=== PATIENT | female | born 1965 | race Caucasian/White ===

== ENCOUNTER → 2021-02-06 16:55 | Outpatient (CLI) | payer OTHER, SELFPAY ==
--- NOTE | 2021-02-06 17:01 | MRI_ITS ---
STUDY: MRI BRAIN WITH AND WITHOUT CONTRAST REASON FOR EXAM: Female, 55 years old. Multiple Sclerosis -- Patient has some Claustrophobia needs headphones and glasses for MRI, feeling of spinning TECHNIQUE: Standardized multiplanar fat and water weighted pulse sequences were obtained. IV 15 mL Dotarem was administered for the contrast portion of the examination. COMPARISON: None. FINDINGS: Normal size of the ventricles and extra-axial spaces for the patient''s age. FLAIR hyperintensities involving the corpus callosum, especially the undersurface, and right and left centrum semiovale and a tracheostomy finger type configuration. Hyperintensities also noted in the brainstem and right cerebellum. No enhancement to suggest active demyelination. There is no evidence for recent intracranial ischemia or other cause of cytotoxic edema on diffusion weighted imaging (DWI). Normal T2* images of the brain without demonstrated susceptibility artifact. There is no demonstrated hemosiderin stain. Normal bilateral basal ganglia. Normal thalami. There is no extra-axial fluid accumulation. Normal flow voids within the major intracranial circulation suggesting patency by spin echo criteria. Normal venous enhancement. There is no enhancing intra-axial or extra-axial abnormality. Normal sella turcica, pituitary gland, infundibular stalk, optic chiasm and hypothalamus. Normal tectal plate and pineal gland. Normal midbrain, rosa and medulla. Normal cerebellum. Normal basal cisterns. Normal bilateral temporal bones. Normal bilateral internal auditory canals. No demonstrated orbital abnormality, within the constraints of a routine brain study. Normal visualized paranasal sinuses. Normal calvarium and skull base. Normal visualized soft tissue structures. Normal visualized upper cervical spine. MRI/Brain W/WO Contrast IMPRESSION: White matter lesions compatible with given diagnosis of multiple sclerosis. No enhancement to suggest active demyelination. Electronically Signed: Nino Courtney MD at 3:15 EDT Tel , Service support ,
== END ==
PROVIDERS: Referring Provider Psychiatry & Neurology Neurology; Visit Provider Psychiatry & Neurology Neurology
DX: G35 Multiple sclerosis (principal)
CPT/HCPCS: 70553; A9575

== ENCOUNTER 2021-06-25 16:23 | Outpatient (CLI) | payer OTHER, SELFPAY ==
[2021-06-25 18:15] LABS: Absolute Lymphocyte Count 0.33 X10^3/uL (0.83-4.51); Absolute Neutrophil Count 2.6 X10^3/uL (2.0-7.7); Basophil# 0.03 X10^3/uL; Basophil% 0.8 % (0-1); Eosinophil# 0.12 X10^3/uL; Eosinophils% 3.3 % (0-5); Hematocrit 39.7 % (37-47); Hemoglobin 14.1 g/dL (12.0-15.0); Lymphocyte # 0.33 X10^3/ul (0.83-4.51); Lymphocyte % 9.2 % (19-41); Mean Corp Hgb Conc 35.5 g/dL (32-36); Mean Corpuscular Hgb 30.7 pg (27.0-32.0); Mean Corpuscular Volume 86.3 fL (81-99); Monocyte% 13.9 % (0-10); NRBC Flagged by Analyzer 0 % (0-5); Neutrophil # 2.58 X10^3/uL (2.7-7.7); POSITIVE DIFFERENTIAL YES; Platelet Count 243 K/mm3 (150-450); RBC Distribution Width CV 13.5 % (11.6-14.6); White Blood Count 3.6 K/mm3 (4.4-11.0)
[2021-06-25 18:18] LABS: Differential Indicated SCAN CRITERIA MET
[2021-06-25 18:57] LABS: Differential Comment SCANNED
[2021-06-27 09:27] LABS: Pathologist Review Reviewed
== END 2021-06-25 23:59 | disposition home or self-care (01) ==
PROVIDERS: Referring Provider Psychiatry & Neurology Neurology; Visit Provider Psychiatry & Neurology Neurology
DX: G35 Multiple sclerosis (principal); E83.52 Hypercalcemia
CPT/HCPCS: 36415; 82330; 85025

== ENCOUNTER 2021-08-23 16:20 | Outpatient (CLI) | payer OTHER, SELFPAY ==
[2021-08-23 18:14] LABS: Absolute Lymphocyte Count 0.34 X10^3/uL (0.83-4.51); Absolute Neutrophil Count 4.2 X10^3/uL (2.0-7.7); Basophil# 0.03 X10^3/uL; Basophil% 0.6 % (0-1); Eosinophil# 0.11 X10^3/uL; Hematocrit 38.4 % (37-47); Hemoglobin 13.2 g/dL (12.0-15.0); Lymphocyte # 0.34 X10^3/ul (0.83-4.51); Lymphocyte % 6.3 % (19-41); Mean Corp Hgb Conc 34.4 g/dL (32-36); Mean Corpuscular Hgb 30.4 pg (27.0-32.0); Mean Corpuscular Volume 88.5 fL (81-99); Mean Platelet Vol. 9.5 fl (6.2-12.0); NRBC Flagged by Analyzer 0 % (0-5); Neutrophil # 4.15 X10^3/uL (2.7-7.7); Neutrophil % 77.4 % (47-70); POSITIVE DIFFERENTIAL YES; Platelet Count 220 K/mm3 (150-450); RBC Distribution Width CV 12.6 % (11.6-14.6); RBC Distribution Width SD 41.1 fl (35.1-43.9); Red Blood Count 4.34 M/mm3 (4.2-5.4); White Blood Count 5.4 K/mm3 (4.4-11.0)
[2021-08-23 18:15] LABS: Differential Indicated SCAN CRITERIA MET
== END 2021-08-23 23:59 | disposition home or self-care (01) ==
PROVIDERS: Referring Provider Psychiatry & Neurology Neurology; Visit Provider Psychiatry & Neurology Neurology
DX: G35 Multiple sclerosis (principal)
CPT/HCPCS: 36415; 85025

== ENCOUNTER → 2021-09-20 | Outpatient (CLI) | payer OTHER, SELFPAY ==
[2021-09-20 17:42] LABS: Absolute Lymphocyte Count 0.27 X10^3/uL (0.83-4.51); Absolute Neutrophil Count 3.3 X10^3/uL (2.0-7.7); Basophil# 0.03 X10^3/uL; Basophil% 0.7 % (0-1); Eosinophil# 0.11 X10^3/uL; Eosinophils% 2.5 % (0-5); Hematocrit 38.6 % (37-47); Hemoglobin 12.9 g/dL (12.0-15.0); Lymphocyte # 0.27 X10^3/ul (0.83-4.51); Lymphocyte % 6.2 % (19-41); Mean Corp Hgb Conc 33.4 g/dL (32-36); Mean Corpuscular Hgb 29.9 pg (27.0-32.0); Mean Corpuscular Volume 89.4 fL (81-99); Mean Platelet Vol. 8.9 fl (6.2-12.0); Monocyte# 0.64 X10^3/uL; Monocyte% 14.6 % (0-10); NRBC Flagged by Analyzer 0 % (0-5); Neutrophil # 3.28 X10^3/uL (2.7-7.7); Neutrophil % 75.1 % (47-70); POSITIVE DIFFERENTIAL YES; Platelet Count 235 K/mm3 (150-450); RBC Distribution Width CV 12.4 % (11.6-14.6); RBC Distribution Width SD 40.9 fl (35.1-43.9); Red Blood Count 4.32 M/mm3 (4.2-5.4); White Blood Count 4.4 K/mm3 (4.4-11.0)
[2021-09-20 18:03] LABS: Vitamin B12 830 pg/mL (211-911)
[2021-09-20 18:10] LABS: Differential Indicated SCAN CRITERIA MET
[2021-09-20 18:14] LABS: Cholesterol 274 mg/dL (200); High Density Lipoprotein 99 mg/dL; Iron 131 ug/dL (50-170); Iron Binding Capacity,Total 392 ug/dL (250-450); PERCENT IRON SATURATION 33.4 % (15.0-55.0); Triglycerides 148 mg/dL; Very Low Density Lipoprotein 30 mg/dL (5-40)
[2021-09-20 19:12] LABS: Differential Comment SCANNED
== END | disposition home or self-care (01) ==
DX: E53.8 Deficiency of other specified B group vitamins (principal); R79.0 Abnormal level of blood mineral; E78.00 Pure hypercholesterolemia, unspecified; Z13.1 Encounter for screening for diabetes mellitus
CPT/HCPCS: 36415; 80061; 82607; 83540; 83550; 85025

== ENCOUNTER → 2021-10-11 | Outpatient (CLI) | payer OTHER, SELFPAY ==
[2021-10-11 17:53] LABS: Absolute Neutrophil Count 3.8 X10^3/uL (2.0-7.7); Basophil# 0.04 X10^3/uL; Basophil% 0.8 % (0-1); Eosinophil# 0.08 X10^3/uL; Eosinophils% 1.7 % (0-5); Hematocrit 40.5 % (37-47); Hemoglobin 13.5 g/dL (12.0-15.0); Lymphocyte % 8.3 % (19-41); Mean Corp Hgb Conc 33.3 g/dL (32-36); Mean Corpuscular Hgb 30.1 pg (27.0-32.0); Mean Corpuscular Volume 90.2 fL (81-99); Mean Platelet Vol. 8.8 fl (6.2-12.0); Monocyte# 0.48 X10^3/uL; NRBC Flagged by Analyzer 0 % (0-5); Neutrophil # 3.76 X10^3/uL (2.7-7.7); POSITIVE DIFFERENTIAL YES; Platelet Count 248 K/mm3 (150-450); RBC Distribution Width CV 12.6 % (11.6-14.6); RBC Distribution Width SD 40.7 fl (35.1-43.9); Red Blood Count 4.49 M/mm3 (4.2-5.4); White Blood Count 4.8 K/mm3 (4.4-11.0)
[2021-10-11 17:55] LABS: Differential Indicated SCAN CRITERIA MET
== END | disposition home or self-care (01) ==
LOC: MTLAB 16:39
PROVIDERS: Referring Provider Psychiatry & Neurology Neurology; Visit Provider Psychiatry & Neurology Neurology
DX: G35 Multiple sclerosis (principal)
CPT/HCPCS: 36415; 85025

== ENCOUNTER → 2021-12-24 | Outpatient (CLI) | payer OTHER, SELFPAY ==
[2021-12-24 15:10] LABS: Absolute Lymphocyte Count 0.62 X10^3/uL (0.83-4.51); Absolute Neutrophil Count 3.9 X10^3/uL (2.0-7.7); Basophil# 0.04 X10^3/uL; Basophil% 0.7 % (0-1); Eosinophil# 0.09 X10^3/uL; Eosinophils% 1.7 % (0-5); Hematocrit 39.4 % (37-47); Hemoglobin 13.4 g/dL (12.0-15.0); Lymphocyte # 0.62 X10^3/ul (0.83-4.51); Lymphocyte % 11.5 % (19-41); Mean Corpuscular Hgb 29.8 pg (27.0-32.0); Mean Corpuscular Volume 87.8 fL (81-99); Mean Platelet Vol. 9.3 fl (6.2-12.0); Monocyte# 0.71 X10^3/uL; Monocyte% 13.2 % (0-10); NRBC Flagged by Analyzer 0 % (0-5); Neutrophil % 72.5 % (47-70); Platelet Count 252 K/mm3 (150-450); RBC Distribution Width CV 12.3 % (11.6-14.6); RBC Distribution Width SD 39.5 fl (35.1-43.9); Red Blood Count 4.49 M/mm3 (4.2-5.4); White Blood Count 5.4 K/mm3 (4.4-11.0)
== END | disposition home or self-care (01) ==
LOC: MTLAB 12:49
PROVIDERS: Referring Provider Psychiatry & Neurology Neurology; Visit Provider Psychiatry & Neurology Neurology
DX: G35 Multiple sclerosis (principal)
CPT/HCPCS: 36415; 85025

== ENCOUNTER → 2022-01-17 | Outpatient (CLI) | payer OTHER, SELFPAY ==
--- NOTE | 2022-01-17 17:55 | MRI_ITS ---
STUDY: MRI BRAIN WITH AND WITHOUT CONTRAST REASON FOR EXAM: Female, 56 years old patient with multiple sclerosis monitoring TECHNIQUE: Standardized multiplanar fat and water weighted pulse sequences were obtained. 15 ml of IV Clariscan was administered for the contrast portion of the examination. COMPARISON: MRI of the brain dated 02/06/2021. FINDINGS: Normal size of the ventricles and extra-axial spaces for the patient''s age. There are numerous foci of abnormal T2 hyperintensity scattered throughout the deep white matter and periventricular white matter primarily similar in configuration since previous MRI and probably secondary to known multiple sclerosis. There is no evidence for recent intracranial ischemia or other cause of cytotoxic edema on diffusion weighted imaging (DWI). Normal T2* images of the brain without demonstrated susceptibility artifact. There is no demonstrated hemosiderin stain. Normal bilateral basal ganglia. Normal thalami. There is no extra-axial fluid accumulation. Normal flow voids within the major intracranial circulation suggesting patency by spin echo criteria. Normal venous enhancement. There is no enhancing intra-axial or extra-axial abnormality. Normal sella turcica, pituitary gland, infundibular stalk, optic chiasm and hypothalamus. Normal tectal plate and pineal gland. There are chronic white matter ischemic changes of the rosa. The midbrain and medulla are otherwise normal. Normal cerebellum. Normal basal cisterns. Normal bilateral temporal bones. Normal bilateral internal auditory canals. No demonstrated orbital abnormality, within the constraints of a routine brain study. Normal visualized paranasal sinuses. Normal calvarium and skull base. Normal visualized soft tissue structures. Normal visualized upper cervical spine. MRI/Brain W/WO Contrast IMPRESSION: 1. Unchanged appearance to the scattered foci of abnormal signal in the white matter since previous MRI secondary to known multiple sclerosis. 2. No MR evidence to suggest active multiple sclerosis or acute infarct. Electronically Signed: Bel Chiu MD at 4:39 EDT ,
--- NOTE | 2022-01-17 18:40 | MRI_ITS ---
STUDY: MRI CERVICAL SPINE WITH AND WITHOUT CONTRAST REASON FOR EXAM: Female, 56 years old patient with multiple sclerosis monitoring. TECHNIQUE: Standardized fat and water weighted pulse sequences were obtained in the sagittal and axial following administration of 15 ml of IV Clariscan. COMPARISON: Prior comparable comparison studies are not available for review at this time. FINDINGS: Normal foramen magnum and brainstem-cervical cord junction. Normal craniovertebral junction. Normal anterior atlantoaxial articulation. Normal odontoid process. There is straightening of the normal cervical lordosis. Normal vertebral bodies and posterior osseous elements. C2-3: Normal endplates. Normal disc height, signal and morphology. Normal central canal and intervertebral neural foramina. C3-4: Normal endplates. Normal disc height, signal and morphology. Normal central canal and intervertebral neural foramina. C4-5: Normal endplates. Normal disc height, signal and morphology. Normal central canal. There is severe narrowing of the left neuroforamen and potential nerve impingement. The right neuroforamen is mildly narrowed. C5-6: There is a disc bulge and osteophyte complex. There is severe left-sided foraminal foramina with potential nerve root impingement. The right normal foramen is mildly narrowed. There is no central canal stenosis. There is left-sided uncovertebral joint hypertrophy. C6-7: Normal endplates. Normal disc height, signal and morphology. Normal central canal and intervertebral neural foramina. C7-T1: Normal endplates. Normal disc height, signal and morphology. Normal central canal and intervertebral neural foramina. There is abnormal signal of the ventral portion of the cervical spinal cord at C2-3 that may represent sequela demyelination. The cervical and upper thoracic spinal cord has normal morphology. There is patchy abnormal T2 hyperintensity in the ons that maybe secondary to either demyelination or microvascular disease. Normal visualized soft tissue structures. There is no evidence for abnormal enhancement. MRI/Spine Cervical W/WO Contrast IMPRESSION: 1. Multilevel degenerative disc disease and degenerative arthropathy of the cervical spine with neural foraminal narrowing and potential nerve root impingement, as described. 2. Focal area of abnormal signal within the ventral spinal cord at C3-4 may be secondary to demyelination. Electronically Signed: Bel Chiu MD at 5:39 EDT ,
== END | disposition home or self-care (01) ==
LOC: MRI 17:09
PROVIDERS: Visit Provider Psychiatry & Neurology Neurology
DX: G35 Multiple sclerosis (principal); R26.9 Unspecified abnormalities of gait and mobility
CPT/HCPCS: 70553; 72156; A9575

== ENCOUNTER → 2022-06-22 | Outpatient (CLI) | payer OTHER, SELFPAY ==
[2022-06-22 10:29] LABS: Absolute Lymphocyte Count 0.54 X10^3/uL (0.83-4.51); Basophil# 0.05 X10^3/uL; Basophil% 1.1 % (0-1); Eosinophil# 0.15 X10^3/uL; Eosinophils% 3.4 % (0-5); Hematocrit 40.3 % (37-47); Hemoglobin 13.1 g/dL (12.0-15.0); Lymphocyte # 0.54 X10^3/ul (0.83-4.51); Lymphocyte % 12.4 % (19-41); Mean Corp Hgb Conc 32.5 g/dL (32-36); Mean Corpuscular Hgb 28.1 pg (27.0-32.0); Mean Corpuscular Volume 86.5 fL (81-99); Mean Platelet Vol. 9.1 fl (6.2-12.0); Monocyte# 0.64 X10^3/uL; Monocyte% 14.7 % (0-10); NRBC Flagged by Analyzer 0 % (0-5); Neutrophil # 2.96 X10^3/uL (2.7-7.7); Neutrophil % 67.9 % (47-70); POSITIVE DIFFERENTIAL YES; Platelet Count 249 K/mm3 (150-450); RBC Distribution Width CV 13.1 % (11.6-14.6); RBC Distribution Width SD 40.6 fl (35.1-43.9); Red Blood Count 4.66 M/mm3 (4.2-5.4); White Blood Count 4.4 K/mm3 (4.4-11.0)
[2022-06-22 10:31] LABS: Differential Indicated SCAN CRITERIA MET
[2022-06-22 10:53] LABS: ALB/GLOB Ratio 1.1 RATIO (0.9-2.4); AST(SGOT) 22 U/L (15-37); Alanine Aminotransfer ALT/SGPT 41 U/L (13-56); Albumin, Serum 3.8 g/dL (3.2-5.0); Alkaline Phosphatase 95 U/L (45-117); Anion Gap 5 (5-15); BUN 14 mg/dL (7-18); BUN/Creat Ratio 19.7 RATIO (10-20); Calcium,Total 9.2 mg/dL (8.5-10.1); Chloride 110 mmol/L (98-107); Creatinine, Serum 0.71 mg/dL (0.55-1.02); EST Glomerular Filtration Rate 90 mL/min (>60); Est Glom Filt Rate - Afr Amer 109 mL/min (>60); Globulin 3.6 g/dL (2.2-4.2); Glucose 98 mg/dL (74-106); Magnesium 2.2 mg/dL (1.6-2.6); Protein, Total 7.4 g/dL (6.4-8.2); Sodium Level 141 mmol/L (136-145)
[2022-06-22 11:20] LABS: Differential Comment SCANNED
[2022-06-25 18:27] LABS: Vitamin D 1,25-Dihydroxy 52.8 pg/mL (24.8-81.5)
== END | disposition home or self-care (01) ==
PROVIDERS: Referring Provider Psychiatry & Neurology Neurology; Visit Provider Psychiatry & Neurology Neurology
DX: Z86.39 Personal history of other endocrine, nutritional and metabolic disease (principal); G35 Multiple sclerosis
CPT/HCPCS: 36415; 80053; 82652; 83735; 85025

== ENCOUNTER → 2022-07-09 | Outpatient (CLI) | payer OTHER, SELFPAY ==
--- NOTE | 2022-07-09 16:26 | MRI_ITS ---
STUDY: MRI THORACIC SPINE WITH AND WITHOUT CONTRAST REASON FOR EXAM: Female, 56 years old. Multiple sclerosis; bowel and bladder incontinence TECHNIQUE: IV 14ml Dotarem was administered for the contrast portion of the examination. COMPARISON: None. FINDINGS: Normal kyphosis of the thoracic spine. There is no substantial scoliosis. No evidence for acute fracture or subluxation. There is an enhancing lesion within the T7 vertebral body which has the appearance of an atypical hemangioma. The disc space heights are well-maintained although there is multilevel disc degeneration. . No focal disc protrusion spinal stenosis or cord compression. Normal visualized thoracic cord. Normal conus medullaris that terminates at T12-L1 The soft tissue structures are unremarkable. There is no enhancing abnormality within the thoracic cord. MRI/Spine Thoracic W/WO Contrast IMPRESSION: Probable atypical interosseous hemangioma within the T7 vertebral body.. This may be further assessed with CAT scan if clinically warranted Mild multilevel disc degeneration without evidence for disc protrusion spinal stenosis or cord compression. No focal lesions are noted within the spinal cord or enhancing lesions Electronically Signed: Sage Dennis MD at 19:05 EST ,
--- NOTE | 2022-07-09 16:26 | MRI_ITS ---
STUDY: MRI LUMBAR SPINE WITHOUT CONTRAST REASON FOR EXAM: Female, 56 years old. Multiple sclerosis; bowel and bladder incontinence TECHNIQUE: Standardized fat and water weighted pulse sequences were obtained in the sagittal and axial planes. Pre and postcontrast multiplanar multiecho imaging obtained. CONTRAST: 14 mL dotarem COMPARISON: None FINDINGS: Vertebral bodies and alignment. 1. Vertebral body height and alignment are maintained. No evidence of marrow edema or occult fracture. 2. Paraspinous soft tissue planes have normal appearance. Normal appearance of the muscular fascial planes of the erector spinae. 3. Normal appearance of the sacrum and sacroiliac joints. 4. Epidural space is normal appearance. 5. No areas of abnormal contrast enhancement. Intervertebral disks levels. T12-L1: Normal endplates. Normal disc height, hydration and morphology. Normal bilateral facet joints. Normal central canal and bilateral lateral recesses. Normal bilateral intervertebral neural foramina. L1-2: No disc herniation canal stenosis, mild facet hypertrophic changes and trace fluid in the facet joints. L2-3: Minimal disc desiccation, broad-based disc bulge, LEFT posterior lateral foraminal bulge and annular tear is noted with deformity of the LEFT lateral recess and LEFT neural foramen without reena nerve root impingement. Minimal facet hypertrophic changes are present. No canal stenosis L3-4: Disc desiccation, broad-based disc bulge is noted, mild asymmetry greater on LEFT than RIGHT. No canal stenosis noted however there is crowding of nerve roots in the lateral recesses greater on LEFT than RIGHT and mild foraminal narrowing without reena nerve root impingement. L4-5: Disc desiccation, broad-based posterior disc bulge without evidence of canal stenosis. There is narrowing of the lateral recesses and mild crowding of nerve roots without reena nerve root impingement. Mild narrowing of neural foramina without evidence reena nerve root impingement. L5-S1: Normal endplates. Normal disc height, hydration and morphology. Normal bilateral facet joints. Normal central canal and bilateral lateral recesses. Normal bilateral intervertebral neural foramina. Spinal cord: Normal appearance of the spinal cord and conus. Conus is located at L1. Cauda equina has normal appearance. No evidence of cord compression or edema. No intramedullary signal abnormality noted. MRI/Spine Lumbar W/WO Contrast IMPRESSION: 1. Mild multilevel disc desiccation notably at L2-3 L3-4 and L4-5 with mild broad-based disc bulges. No canal stenosis. There however is a LEFT foraminal bulge and annular tear at L2-3 with narrowing of the LEFT neural foramen and crowding of nerve roots LEFT lateral recess. Additional narrowing of the LEFT lateral recess at L3-4. No reena nerve root impingement throughout the lumbar spine. 2. No evidence of cord compression. No intramedullary signal or contrast abnormality noted. 3. No epidural abnormalities noted. Electronically Signed: Lawrence Mayo MD at 20:39 EST ,
== END | disposition home or self-care (01) ==
LOC: MRI 16:24
PROVIDERS: Visit Provider Psychiatry & Neurology Neurology
DX: R15.9 Full incontinence of feces (principal); G35 Multiple sclerosis; R32 Unspecified urinary incontinence; R26.9 Unspecified abnormalities of gait and mobility; M54.50 Low back pain, unspecified
CPT/HCPCS: 72157; 72158; A9575

== ENCOUNTER → 2023-02-24 | Outpatient (CLI) | payer BC, SELFPAY ==
--- NOTE | 2023-02-24 14:00 | CT_ITS ---
STUDY: CT THORACIC SPINE WITH AND WITHOUT CONTRAST REASON FOR EXAM: Female, 57 years old. Evaluate suspected atypical T7 enhancing hemangiom RADIATION DOSAGE (If Supplied By Facility): CTDIvol = ( 19.46 ) mGy, DLP = ( 1334.88 ) mGycm TECHNIQUE: The patient was scanned in a multi-detector CT scanner. High resolution transaxial imaging was performed pre-and post contrast administration. The examination was performed with 100CC ISOVUE 300. Images were obtained from to . Sagittal and coronal images were reconstructed. Individualized dose optimization techniques were used for this CT. COMPARISON July 09, 2022 MRI of the thoracic spine FINDINGS: Normal visualized cervical spine. Chronic wedging of T8 and T9 with narrowing of the disc space and endplate spurring Normal kyphosis of the thoracic spine. There is no substantial scoliosis. No evidence for acute fracture or subluxation No discrete lytic or sclerotic bony lesions. The soft tissue structures are unremarkable. CT/Spine Thoracic W/WO Contrast IMPRESSION: Mild spondylosis. No acute fracture.. No well-defined lytic or sclerotic bony lesions are seen in the T7 vertebral body suggesting probable benign etiology However, if patient has known history of malignancy bone scan would be helpful for further assessment Electronically Signed: Sage Dennis MD at 17:10 EDT ,
== END | disposition home or self-care (01) ==
PROVIDERS: Referring Provider Psychiatry & Neurology Neurology; Visit Provider Psychiatry & Neurology Neurology
DX: D18.09 Hemangioma of other sites (principal)
CPT/HCPCS: 72130; Q9967

== ENCOUNTER → 2023-08-07 | Outpatient (CLI) | payer BC, SELFPAY ==
--- NOTE | 2023-08-07 13:59 | MRI_ITS ---
INDICATION: multiple sclerosis follow-up EXAMINATION: MRI - MR Brain WO/W Contrast TECHNIQUE: Multiplanar and multisequence MR images of the brain were obtained without and with gadolinium. IV Contrast Dosage and Agent: 15 ml clariscan. COMPARISON: MRI brain January 17, 2022 FINDINGS: BRAIN PARENCHYMA: Normal midline developmental anatomy. No Chiari malformation. Unremarkable sella. Cerebellar pontine angles are clear. No evidence of intracranial space occupying mass or mass effect. No diffusion restriction. No evidence of prior hemorrhage. Bilateral periventricular fingerlike hyperintense T2 projections and scattered subcortical T2 hyperintensities are again noted, unchanged in distribution and number from January 17, 2022 with localized increase in intensity and size along right frontal periventricular centrum semiovale, sagittal series 4 image 11 and axial series 7 image 18. No abnormal brain parenchymal or meningeal enhancement. INTERNAL AUDITORY CANALS: The internal auditory canals are well visualized and patent. No mass identified. CSF SPACES: Appropriate for age. No hydrocephalus. Basal cisterns are patent. VASCULAR SYSTEM: Normal flow voids in the major intracranial circulation. CALVARIUM, SKULL BASE, PARANASAL SINUSES AND MASTOID AIR CELLS: Clear. No expansile changes. ORBITS: Both globes, extraocular muscles, optic nerves and retrobulbar fat appear unremarkable. MRI/Brain W/WO Contrast IMPRESSION: Periventricular white matter changes consistent with provided diagnosis of multiple sclerosis. There is mild localized increase in chronic white matter disease of the right frontal periventricular centrum semiovale. No IV contrast enhancement is seen to suggest active demyelination. Electronically Signed: Kristopher Frey MD at 3:14 EDT ,
[2023-08-07 16:48] LABS: Sodium Level 141 mmol/L (136-145)
== END | disposition home or self-care (01) ==
PROVIDERS: Referring Provider Psychiatry & Neurology Neurology; Visit Provider Psychiatry & Neurology Neurology
DX: G35 Multiple sclerosis (principal); E87.1 Hypo-osmolality and hyponatremia
CPT/HCPCS: 36415; 70553; 84295; A9575

== ENCOUNTER → 2023-12-02 | Outpatient (CLI) | payer BC, SELFPAY ==
[2023-12-02 17:45] LABS: Absolute Lymphocyte Count 1.17 X10^3/uL (0.83-4.51); Absolute Neutrophil Count 3.8 X10^3/uL (2.0-7.7); Basophil# 0.05 X10^3/uL; Basophil% 0.8 % (0-1); Eosinophil# 0.15 X10^3/uL; Eosinophils% 2.5 % (0-5); Hematocrit 41.6 % (37-47); Hemoglobin 13.7 g/dL (12.0-15.0); Lymphocyte # 1.17 X10^3/ul (0.83-4.51); Lymphocyte % 19.9 % (19-41); Mean Corp Hgb Conc 32.9 g/dL (32-36); Mean Corpuscular Hgb 27.7 pg (27.0-32.0); Mean Corpuscular Volume 84.2 fL (81-99); Mean Platelet Vol. 9.9 fl (6.2-12.0); Monocyte# 0.71 X10^3/uL; Monocyte% 12.1 % (0-10); NRBC Flagged by Analyzer 0 % (0-5); Neutrophil # 3.79 X10^3/uL (2.7-7.7); Neutrophil % 64.4 % (47-70); Platelet Count 266 K/mm3 (150-450); RBC Distribution Width CV 13.4 % (11.6-14.6); RBC Distribution Width SD 41.2 fl (35.1-43.9); Red Blood Count 4.94 M/mm3 (4.2-5.4); White Blood Count 5.9 K/mm3 (4.4-11.0)
[2023-12-02 18:21] LABS: ALB/GLOB Ratio 1.1 RATIO (0.9-2.4); AST(SGOT) 30 U/L (15-37); Alanine Aminotransfer ALT/SGPT 36 U/L (13-56); Albumin, Serum 3.9 g/dL (3.2-5.0); Alkaline Phosphatase 113 U/L (45-117); Anion Gap 7 (5-15); BUN 15 mg/dL (7-18); BUN/Creat Ratio 21.3 RATIO (10-20); Calcium,Total 9.3 mg/dL (8.5-10.1); Chloride 101 mmol/L (98-107); EST Glomerular Filtration Rate 90 mL/min (>60); Est Glom Filt Rate - Afr Amer 109 mL/min (>60); Globulin 3.6 g/dL (2.2-4.2); Glucose 89 mg/dL (74-106); Magnesium 2.2 mg/dL (1.6-2.6); Potassium 3.8 mmol/L (3.5-5.1); Protein, Total 7.5 g/dL (6.4-8.2); Sodium Level 134 mmol/L (136-145); Thyroid Stim Hormone (TSH) 1.99 uIU/mL (0.358-3.74)
[2023-12-05 13:08] LABS: Vitamin D 1,25-Dihydroxy 36.6 pg/mL (24.8-81.5)
== END | disposition home or self-care (01) ==
LOC: MTLAB 15:16
PROVIDERS: Referring Provider Psychiatry & Neurology Neurology; Visit Provider Psychiatry & Neurology Neurology
DX: R53.83 Other fatigue (principal); G35 Multiple sclerosis; Z86.39 Personal history of other endocrine, nutritional and metabolic disease
CPT/HCPCS: 36415; 80053; 82652; 83735; 84443; 85025

== ENCOUNTER → 2024-04-19 | Outpatient (CLI) | payer BC, SELFPAY ==
--- NOTE | 2024-04-19 16:19 | MRI_ITS ---
INDICATION: Left trigeminal neuralgia-without chin pain ; multiple sclerosis follow up, balance issues EXAMINATION: MRI - MR Brain WO/W Contrast TECHNIQUE: MRI examination of brain obtained with standard protocol including multiplanar multiecho imaging. Pre and Postcontrast imaging obtained. IV Contrast Dosage and Agent: 14 mL Clariscan IV COMPARISON: MRI examination brain of 08/07/2023 FINDINGS: HEMISPHERES, CEREBELLUM AND BRAINSTEM: 1. The cerebral parenchyma, ventricular system, subarachnoid spaces have normal configuration and density. There is a normal gyral pattern. There is normal tadeo/white differentiation. No midline shift.. 2. Persistent diffuse white matter FLAIR and T2 signal hyperintensity bilaterally. Pattern and distribution are stable. 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 No evidence however of fluid restriction or acute ischemic change. No evidence of abnormal contrast enhancement. No intraparenchymal mass, hemorrhage, or acute territorial infarct. 3. The cerebellum, brainstem, basilar and suprasellar cisterns have normal configuration. There are areas of signal abnormality along the basilar rosa greater on the RIGHT than LEFT without significant interval change.. No Chiari malformation. 4. No masses abnormal signal or abnormal contrast enhancement associated with the trigeminal nerve bilaterally. PITUITARY: Infundibulum and pituitary have normal configuration. Midline structures appear normal. CSF SPACES: Appropriate for age. No hydrocephalus. Basal cisterns are patent. VESSELS: 1. There are normal flow voids noted in the great vessels at the skull base ORBITS AND PARANASAL SINUSES: 1. Both globes, extraocular muscles, optic nerves and retrobulbar fat appear unremarkable. 2. Paranasal sinuses are clear. BONY ELEMENTS: Bony elements of the cranial vault, facial skeleton and skull base have normal appearance. SCALP AND SOFT TISSUES: Normal appearance of the soft tissues of the scalp and the visualized face OTHER: None MRI/Brain W/WO Contrast IMPRESSION: 1. Stable exam. 2. No mass, hemorrhage, or acute territorial infarct. 3. Focal areas of T2 and FLAIR signal hyperintensity in the hemispheric white matter, and brainstem with a pattern consistent with MS. 4. No evidence of acute demyelination. 5. No areas of abnormal contrast enhancement. Electronically Signed: Lawrence Mayo MD at 21:39 EST ,
[2024-04-19 17:19] LABS: CREATININE FINGERSTICK < 1.0 mg/dL (0.55-1.02); EGFR FINGERSTICK > 60.0000 mL/min (>60)
== END | disposition home or self-care (01) ==
LOC: MRI 16:12
PROVIDERS: Referring Provider Psychiatry & Neurology Neurology; Visit Provider Psychiatry & Neurology Neurology
DX: G35 Multiple sclerosis (principal); G50.0 Trigeminal neuralgia
CPT/HCPCS: 70553; A9575

== ENCOUNTER → 2024-07-02 | Outpatient (CLI) | payer BC, SELFPAY ==
--- NOTE | 2024-07-02 15:28 | MRI_ITS ---
PROCEDURE: MRI thoracic spine without and with IV contrast REASON FOR EXAM: Multiple sclerosis TECHNIQUE: Multisequence multiplanar MR images of the thoracic spine were obtained before and after the administration of intravenous contrast. COMPARISON: None. FINDINGS: Focal hyperintense T2 signal within the left hemicord at the level of T10-11 measuring up to 11 mm in craniocaudal dimension. No other discrete cord signal abnormalities. No pathologic cord enhancement. Negative for acute fracture or bone marrow edema. Probable hemangioma within the T7 vertebral body measuring up to 16 mm. Alignment is within normal limits. No focal disc abnormality, spinal stenosis or foraminal narrowing. Mild paraspinal muscle atrophy without paraspinal mass. MRI/Spine Thoracic W/WO Contrast IMPRESSION: 1. Abnormal signal within the left hemicord at the level of T10-11 likely relat ed to the history of multiple sclerosis. No other cord signal abnormalities or pathologic enhancement. Correlate with prior imag ing. 2. No focal disc abnormality, significant spinal stenosis or foraminal narrowin g. 3. Probable T7 vertebral body hemangioma. Reading Location: [facility]
--- NOTE | 2024-07-02 15:28 | MRI_ITS ---
PROCEDURE: MRI cervical spine without and with IV contrast REASON FOR EXAM: Multiple sclerosis TECHNIQUE: Multisequence multiplanar MR images of the cervical spine were obtained before and after the administration of intravenous contrast. Imaging sequences were performed to best display suspected pathology. COMPARISON: 01/17/2022 FINDINGS: Focal hyperintense T2 cord signal along the left cord at the level of C3-4 measuring up to 9 mm in craniocaudal dimension, similar to prior. No new cord lesions or pathologic enhancement. Multiple similar-appearing hyperintense T2 lesions noted within the rosa. Vertebral body heights are within normal limits. Negative for fracture or marrow replacement. Mild multilevel degenerative endplate changes with degenerative disc disease. Grade 1 anterolisthesis of C4-5. No significant scoliosis. No paraspinal mass. C2-3: Minimal posterior disc bulge eccentric to the left. Mild spinal stenosis. No significant foraminal narrowing. C3-4: Small posterior disc osteophyte complex. Mild spinal stenosis. Advanced right facet arthropathy. Moderate right foraminal narrowing. C4-5: No focal disc abnormality, significant spinal stenosis or foraminal narrowing. C5-6: Posterior disc osteophyte complex eccentric to the left. Bilateral uncovertebral arthrosis, greater on the left. Mild spinal stenosis. Severe left and mild right foraminal narrowing. C6-7: Minimal posterior disc osteophyte complex. No significant spinal stenosis or foraminal narrowing. C7-T1: No focal disc abnormality, spinal stenosis or foraminal narrowing. MRI/Spine Cervical W/WO Contrast IMPRESSION: 1. Unchanged hyperintense T2 signal in the left hemicord at C3-C4. No new cord lesions or pathologic enhancement. 2. Acquired mild multilevel spinal stenosis as above. 3. Acquired multilevel foraminal narrowing, greatest on the left at C5-6 catego rized as severe. Reading Location: [facility]
== END | disposition home or self-care (01) ==
PROVIDERS: Referring Provider Psychiatry & Neurology Neurology; Visit Provider Psychiatry & Neurology Neurology
DX: G35 Multiple sclerosis (principal); R32 Unspecified urinary incontinence
CPT/HCPCS: 72156; 72157; A9575

== ENCOUNTER → 2024-09-13 | Outpatient (CLI) | payer BC, SELFPAY ==
[2024-09-13 17:43] LABS: Absolute Lymphocyte Count 1.16 X10^3/uL (0.83-4.51); Absolute Neutrophil Count 3.8 X10^3/uL (2.0-7.7); Basophil# 0.06 X10^3/uL; Eosinophil# 0.17 X10^3/uL; Eosinophils% 2.8 % (0-5); Lymphocyte # 1.16 X10^3/ul (0.83-4.51); Mean Corp Hgb Conc 35.1 g/dL (32-36); Mean Corpuscular Hgb 29.1 pg (27.0-32.0); Mean Platelet Vol. 8.5 fl (6.2-12.0); Monocyte# 0.91 X10^3/uL; Monocyte% 14.9 % (0-10); NRBC Flagged by Analyzer 0 % (0-5); Neutrophil # 3.76 X10^3/uL (2.7-7.7); Neutrophil % 61.6 % (47-70); Platelet Count 280 K/mm3 (150-450); RBC Distribution Width CV 12.7 % (11.6-14.6); RBC Distribution Width SD 38.5 fl (35.1-43.9); Red Blood Count 4.46 M/mm3 (4.2-5.4); White Blood Count 6.1 K/mm3 (4.4-11.0)
[2024-09-13 18:06] LABS: ALB/GLOB Ratio 1.6 RATIO (0.9-2.4); AST(SGOT) 21 U/L (<=31); Alanine Aminotransfer ALT/SGPT 29 U/L (<=34); Albumin, Serum 4.3 g/dL (3.4-4.8); Alkaline Phosphatase 117 U/L (35-104); Anion Gap 50 (5-15); BUN 12 mg/dL (4-19); BUN/Creat Ratio 23.8 RATIO (10-20); Calcium,Total 9.3 mg/dL (7.6-11.0); Carbon Dioxide 22.4 mmol/L (21.0-32.0); Chloride 80 mmol/L (98-108); Creatinine, Serum 0.51 mg/dL (0.70-1.20); EST Glomerular Filtration Rate 107 (>60); Globulin 2.7 g/dL (2.2-4.2); Glucose 100 mg/dL (70-99); Potassium 4.5 mmol/L (3.3-5.1); Sodium Level 152 mmol/L (133-145); Total Bilirubin < 0.15 mg/dL (0.00-1.30)
== END | disposition home or self-care (01) ==
LOC: MFPLAB 16:14
PROVIDERS: Visit Provider Psychiatry & Neurology Neurology
DX: G50.0 Trigeminal neuralgia (principal)
CPT/HCPCS: 36415; 80053; 82542; 85025

== ENCOUNTER 2024-09-27 13:54 | Outpatient (CLI) | payer BC, SELFPAY ==
--- NOTE | 2024-09-27 13:58 | VDLE_ITS ---
Reason For Study Reason For Study: Hx of Varicose Veins RIGHT LEFT CFV is compressible, spontaneous, phasic, competent CFV is compressible, spontaneous, phasic, competent, and demonstrates normal augmentation. and demonstrates normal augmentation. FV is compressible, spontaneous, phasic, competent FV is compressible, spontaneous, phasic, competent and demonstrates normal augmentation. and demonstrates normal augmentation. POP V is compressible, spontaneous, phasic, competent POP V is compressible, spontaneous, phasic, competent and demonstrates normal augmentation. and demonstrates normal augmentation. T/P Trunk is compressible. T/P Trunk is compressible. PTV is compressible. PTV is compressible. RT PerV is compressible. LT PerV is compressible. SFJ is competent and measures 0.53 cm. SFJ is competent and measures 0.38 cm. Rt GSV not visualized s/p EVLA Lt GSV not visualized s/p EVLA Lt GSV visualized at distal calf is Competent and Lt GSV visualized at distal calf is Competent and measures 0.21cm x 0.23cm measures 0.12cm x 0.17cm Rt SSV too small to assess, 0.11cm x 0.10cm. Hypoechoic, non vascular structure noted Lt Pop Fossa Procedure measuring 0.76cm x 1.77cm. This is a venous duplex using B-mode, color flow and ASV proximal calf is INCOMPETENT for greater than 0.5 spectral Doppler. seconds and measures 0.21cm x 0.27 cm. Exam performed in department. SSV mid calf is competent and measures 0.13cm x 0.18 A preliminary report was called and/or faxed to Dr. cm. Duarte. VL/Venous Duplex US - Brennen Extrem Interpretation Summary Deep veins of the bilateral lower extremities are patent and compressible segme ntally. There is no evidence of bilateral lower extremity deep vein thrombosis. The bilateral great saphenous veins appea r patent and compressible segmentally. Positive for reflux in the left accessory saphenous vein in the calf. Hypoechoic, non vascular structure noted left popliteal Ffssa measuring 0.76cm x 1.77cm. Ordering Physician: Slade Duarte Referring Physician: Laisha Javier Performed By: Estefania Varghese, ARI, RVT
[2024-09-27 15:52] LABS: Absolute Lymphocyte Count 1.23 X10^3/uL (0.83-4.51); Absolute Neutrophil Count 3.6 X10^3/uL (2.0-7.7); Basophil# 0.04 X10^3/uL; Basophil% 0.7 % (0-1); Eosinophil# 0.15 X10^3/uL; Eosinophils% 2.5 % (0-5); Hematocrit 40.8 % (37-47); Hemoglobin 13.8 g/dL (12.0-15.0); Lymphocyte # 1.23 X10^3/ul (0.83-4.51); Lymphocyte % 20.9 % (19-41); Mean Corp Hgb Conc 33.8 g/dL (32-36); Mean Corpuscular Hgb 28.6 pg (27.0-32.0); Mean Corpuscular Volume 84.5 fL (81-99); Mean Platelet Vol. 8.6 fl (6.2-12.0); Monocyte# 0.79 X10^3/uL; Monocyte% 13.4 % (0-10); NRBC Flagged by Analyzer 0 % (0-5); Neutrophil # 3.64 X10^3/uL (2.7-7.7); Neutrophil % 61.8 % (47-70); Platelet Count 256 K/mm3 (150-450); RBC Distribution Width CV 12.8 % (11.6-14.6); RBC Distribution Width SD 39.3 fl (35.1-43.9); Red Blood Count 4.83 M/mm3 (4.2-5.4); White Blood Count 5.9 K/mm3 (4.4-11.0)
[2024-09-27 16:19] LABS: Anion Gap 11 (5-15); BUN 12 mg/dL (4-19); BUN/Creat Ratio 19.1 RATIO (10-20); Calcium,Total 9.8 mg/dL (7.6-11.0); Carbon Dioxide 26.9 mmol/L (21.0-32.0); Chloride 98 mmol/L (98-108); EST Glomerular Filtration Rate 103 (>60); Glucose 74 mg/dL (70-99); Potassium 4.1 mmol/L (3.3-5.1); Sodium Level 136 mmol/L (133-145)
[2024-10-04 18:07] LABS: Trileptal-Oxcarbazepine 2 ug/mL (10-35)
== END 2024-09-27 23:59 | disposition home or self-care (01) ==
PROVIDERS: Referring Provider Psychiatry & Neurology Neurology; Visit Provider Psychiatry & Neurology Neurology
DX: G35 Multiple sclerosis (principal); Z86.79 Personal history of other diseases of the circulatory system; G50.0 Trigeminal neuralgia
CPT/HCPCS: 36415; 80048; 82542; 85025; 93970

== ENCOUNTER → 2024-10-29 | Outpatient (CLI) | payer BC, SELFPAY ==
[2024-10-29 16:58] LABS: Erythrocyte Sedimentation Rate 10 mm/hr (0-30)
[2024-11-01 14:09] LABS: Anti-Centromere B Ab <0.2 AI (0.0-0.9); Anti-Chromatin <0.2 AI (0.0-0.9); Anti-Jo <0.2 AI (0.0-0.9); Anti-Scleroderma-70 AB <0.2 AI (0.0-0.9); Anti-dsDNA Ab 1 IU/mL (0-9); RNP Ab 0.3 AI (0.0-0.9); SJOGREN'S Anti-SS-A test < 0.2 AI (0.0-0.9); SJOGREN'S Anti-SS-B test < 0.2 AI (0.0-0.9); Smith Ab <0.2 AI (0.0-0.9)
[2024-11-01 16:09] LABS: Anti-Cardiolipin Ab, IgA, Qn < 9 APL U/mL (0-11); Anti-Cardiolipin Ab, IgG, Qn < 9 GPL U/mL (0-14); Anti-Cardiolipin Ab, IgM, Qn 14 MPL U/mL (0-12); Complement C3 135 mg/dL (82-167); Complement CH50 > 60 U/mL (>41); Dilute Prothrombin Time (dPT) 48.9 sec (0.0-47.6); Dilute Russell Viper Venom 40.6 sec (0.0-47.0); Interpretation Comment: (.); PTT-LA 37.3 sec (0.0-43.5); Protein C, Functional 90 % (73-180); Protein S, Free 111 % (61-136); Protein S, Funtional 98 % (63-140); Protein S, Total 89 % (60-150); Thrombin Time 17.4 sec (0.0-23.0); dPT Confirm Ratio 1.05 Ratio (0.00-1.34)
== END | disposition home or self-care (01) ==
LOC: LAB 15:55
PROVIDERS: Referring Provider Physician Assistant; Visit Provider Physician Assistant
DX: R23.1 Pallor (principal)
CPT/HCPCS: 36415; 85303; 85305; 85306; 85652; 86147; 86160; 86162; 86225; 86235

== ENCOUNTER → 2025-01-15 | Outpatient (CLI) | payer BC, SELFPAY ==
--- OUTSIDE RECORDS SUMMARY | 2025-01-15 09:23 | XMS RPT_ITS | CCD ---
Author Organization [facility] Care Team Providers [facility] [employer] Name Role Phone Dr. Slade Duarte Attending Provider AGUSTINA STACY Primary Care Provider Unavailabl AGUSTINA Rosenberg Referring Provider Unavailable Tyra Wallace Unavailable Unavailable Unavailable Dr. Slade Duarte Attending Provider [phone] AGUSTINA STACY Primary Care Provider UnavailAGUSTINA Lopez Referring Provider Unavailable Dr. Slade Duarte Attending Provider Gerald, Dr. Slade Marte Attending Unav ailable Baddour, Dr. Slade Marte Attending Unav ailable Baddour, Dr. Slade Marte Attending Unav ailable Baddour, Dr. Slade Marte Attending Unav ailable Baddour, Dr. Slade Marte Attending Unav ailable Baddour, Dr. Slade Marte Attending Unav ailable Baddour, Dr. Slade Marte Attending Unav ailable Baddour, Dr. Slade Marte Attending Unav ailable Baddour, Dr. Slade Marte Attending Unav ailable Baddour, Dr. Slade Marte Attending Unav ailable Baddour, Dr. Slade Marte Attending Unav ailable Baddour, Dr. Slade Marte Attending Unav ailable Baddoisabela, Dr. Slade Marte Attending Unav ailable Baddoisabela, Dr. Slade Marte Attending Unav ailable Baddoisabela, Dr. Slade Marte Attending Unav ailable Baddoisabela, Dr. Slade Marte Attending Unav ailable Jentner, Dr. Berrios Attending Unavailable Baddoisabela, Dr. Slade Marte Attending Unav ailable Baddour, Slade Estuardo Attending Unav ailable SANTIAGO BOOKER Admitting Unavailable DESTINY ODOM Referring Unava ilable JENCORINNE, AGUSTINA Primary Care Unavailable [address] JR Attending Unavailyahaira Stacy MD, Agustina Primary Care Provider Celia UMAÑA, Larissa Dave Unavailable Dr. Slade Duarte Attending Provider JENTNER, AGUSTINA Primary Care Provider Unavailabl e JENTNER, AGUSTINA Referring Provider Unavailable JENTNER, AGUSTINA Primary Care Unavailable SONAL FARLEY Attending Unavailyahaira Stacy MD, Agustina Primary Care Provider Tawanna LARSON, Agustina Primary Care Provider Unavailable Primary Care Provider Unavailabl e JENTNER, AGUSTINA Primary Care Unavailable JENTNER, AGUSTINA Primary Care Unavailable JENTNER, AGUSTINA Primary Care Unavailable Tawanna LARSON, Agustina Primary Care Provider Tawanna LARSON, Agustina Primary Care Provider Unavail able Dr. Slade Duarte MD Attending Provider Dr. Slade Duarte MD Referring Provider [phone] Care Physician, No Primary Primary Care Provider Unavailable [facility] Doctor, Out of Referring Provider Unavailab julieta Javier SENIOR TABLEAU DEVELOPER-C, Laisha Primary Care Provider Yaya VETERINARY LABORATORY DIAGNOSTICIAN-DIRECTOR REGULATORY COMPLIANCE, Laisha B Primary Care Provider Emma Verdin MD Unavailable Town Doctor, Out of Referring Provider Unavailab Dr. Slade Donovan MD Attending Provider [phone] Care Physician, No Primary Primary Care Provider Unavailable Dr. Slade Duarte MD Referring Provider Yaya SENIOR TABLEAU DEVELOPER-C, Laisha Primary Care Provider Care Physician, No Primary Referring Provider Un available Slade Duarte MD Attending Provider Unavailab le LAISHA JAVIER B Referring Unavailable LAISHA JAVIER B Primary Care Unavailable JENTNER, AGUSTINA Primary Care Unavailable ANDRE BLANCAS Attending Unavailable LAMIN REDDING Attending Unavailable LAMIN REDDING Referring Unavailable JENTNER, AGUSTINA Primary Care Unavailable JENTNER, AGUSTINA Referring Unavailable JENTNER, AGUSTINA Primary Care Unavailable JENTNER, AGUSTINA Referring Unavailable JENTNER, AGUSTINA Primary Care Unavailable Gerald LARSON, Dr. June Attending Provider [phone] Tg LARSON, Dr. Ward Attending Provider Yaya SENIOR TABLEAU DEVELOPER-C, Laisha Referring Provider [phone] Jericho DE LA GARZA, Dorothy Attending Provider Dr. Slade Duarte MD Attending Provider Yaya SENIOR TABLEAU DEVELOPER-C, [facility] Primary Care Provider Dr. Slade Duarte MD Referring Provider Jericho DE LA GARZA, Dorothy Referring Provider [phone] Gerald Slade Attending Unavailable Town Doctor, Out of Referring Unavailable Care Physician, No Primary Primary Care Unava ilable Baddoisabela, Slade Attending Unavailable Yaya, Laisha Primary Care Unavailable Care Physician, No Primary Referring Unava ilable Yaya, Laisha Referring Unavailable Echavarria, Dorothy Attending Unavailable Yaya, Laisha Primary Care Unavailable Yaya, Laisha Primary Care Unavailable Ed Mas Attending Unavailable Baddour, Slade Referring Unavailable Yaya, Laisha Primary Care Unavailable Echavarria, Dorothy Attending Unavailable Echavarria, Dorothy Referring Unavailable Baddour, Slade Referring Unavailable Town Doctor, Out of Primary Care Unavailable Slade Duarte Attending Unavailable Gerald Slade Attending Unavailable Care Physician, No Primary Primary Care Unava ilable Baddour, Slade Referring Unavailable Baddour, Slade Attending Unavailable Yaya, Laisha Primary Care Unavailable Baddour, Slade Referring Unavailable Yaya, Laisha Primary Care Unavailable Baddour Slade GUADALUPE Attending Unavailable Baddour, Slade Attending Unavailable Yaya, Laisha Primary Care Unavailable Baddour, Slade Referring Unavailable Town Doctor, Out of Primary Care Unavailable Town Doctor, Out of Referring Unavailable Badjesus, Slade Attending Unavailable DIMPLE SALAZAR Attending Unavailable JENTNER, AGUSTINA Primary Care Unavailable DIMPLE SALAZAR Attending Unavailable JENTNER, AGUSTINA Primary Care Unavailable YAYA, LAISHA B Attending Unavailable AGUSTINA STACY Primary Care Unavailable LAISHA AJVIER Attending Unavailable LAISHA JAVIER Primary Care Unavailable Allergies Allergy Classification Reported Allergen(s) Allergy Type Date of Onset Reaction(s) Facility (20 sources) Penicillins; Translations: [Penicillins] Propensity to adverse reactions 0 Rash [facility] (10 sources) Seasonal allergy; Translations: [SEASONAL ALLERGIES] Propensity to adverse reactions (disorder) 1 Intolerance [facility] (1 source) ALLERGIES NOT ON FILE; Translations: [ALLERGIES NOT ON FILE] Propensity to adverse reactions (disorder) [facility] Medications Current Medications Medication Drug Class(es) Dates Sig (Normalized) Sig (Original) amantadine hydrochloride 100 mg oral capsule (20 sources) Influenza A M2 Protein Inhibitor Start: 06-01-2024 End: 09-15-2024 take 1 capsule by mouth three times daily Amantadine Hcl 100 mg capsule Active 100 mg PO THREE TIMES A DAY September 15, 2024 5:45pm Start: 12-02-2023 End: 06-01-2024 take 1 capsule by mouth twice daily, then take 1 capsule by mouth three times daily Amantadine Hcl 100 mg capsule Discontinued 0 .ROUTE .COMPLEX December 02, 2023 12:00am June 01, 2024 10:19am Take 1 capsule orally twice daily for 1 week then 1 capsule 3 times daily thereafter ascorbic acid 500 mg oral capsule (20 sources) Vitamin C Start: 01-18-2021 End: 10-29-2024 take 1 capsule by mouth once daily ascorbic acid, vitamin C, 500 mg cap Take 500 mg by mouth once daily. 01/18/2021 Active Comment on above: Take 500 mg by mouth once daily. Bifidobacterium animalis (3 sources) BIFIDOBACTERIUM ANIMALIS ORAL Take by mouth. Active Calcium Carbonate (20 sources) take 1 dose by mouth once daily calcium carbonate (CALCIUM 600 ORAL) Take 1 each by mouth once daily. Active Calcium 600 MG T ABS TAKE 1 TABLET 3 times daily Quantity: 0 Refills: 0 Ordered: 26-Feb-2018 DO Active Calcium Carbonate / vitamin D3 (2 sources) calcium carbonat e/vitamin D3 (CALCIUM 600 + D ORAL) Take by mouth. Active calcium chloride 0.0014 meq/ml / potassium chloride 0.004 meq/ml / sodium chloride 0.103 meq/ml / sodium lactate 0.028 meq/ml injectable solution (1 source) Start: 02-03-2024 take 20 mL intravenously every hour 20 mL/hr, intravenous, Continuous, Starting on Fri02/03/24 at 1215, Preprocedure cane (12 sources) Start: 03-22-2021 cane Active 0 .Route .MEDSUPPLY March 22, 2021 5:23pm As directed Start: 03-22-2021 cane Active 0 .Route .MEDSUPPLY March 22, 2021 12:00am As directed Start: 03-22-2021 cane Active 0 .Route .MEDSUPPLY March 22, 2021 1:00am As directed cholecalciferol 0.125 mg oral capsule (19 sources) Vitamin D Start: 01-18-2021 take 1 capsule by mouth once daily Cholecalciferol (Vitamin D3) 125 mcg (5,000 unit) capsule Active 125 ug PO DAILY January 18, 2021 12:00am take 1 capsule by mouth once zeenat ly Cholecalciferol, Vitamin D3, 5,000 unit cap Take 5,000 Units by mouth once daily. Active Comment on above: Take 5,000 Units by mouth once daily. Compression stocking (10-20) (5 sources) Start: 12-02-2023 Compression stocking (10-20) Active 0 .ROUTE .MEDSUPPLY December 02, 2023 12:00am As directed Start: 12-02-[address]ing (10-20) Active 0 .ROUTE .MEDSUPPLY December 01, 2023 11:00pm As directed cyclobenzaprine hydrochloride 10 mg oral tablet (20 sources) Muscle Relaxant Start: 06-01-2024 End: 09-15-2024 take 1 tablet by mouth once daily Cyclobenzaprine 10 mg tablet Active 10 mg PO .Nightly September 15, 2024 5:45pm Start: 12-03-2023 End: 06-01-2024 take 1 tablet by mouth twice daily as needed for muscle spasms Cyclobenzaprine 10 mg tablet Discontinued 10 mg PO TWICE A DAY as needed for muscle spasm December 03, 2023 5:31pm June 01, 2024 10:19am Start: 10-10-2022 End: 12-03-2023 take 1 tablet by mouth three times daily as needed for muscle spasms Cyclobenzaprine 10 mg tablet Discontinued 10 mg PO THREE TIMES A DAY as needed for muscle spasm 90 July 24, 2023 10:17pm December 03, 2023 5:33pm Start: 12-24-2021 End: 10-10-2022 take 1 tablet by mouth twice daily Cyclobenzaprine 10 mg tablet Discontinued 10 mg PO TWICE A DAY 60 October 10, 2022 4:57pm October 10, 2022 5:02pm Start: 10-09-2021 End: 12-24-2021 take 1 tablet by mouth twice daily Cyclobenzaprine 5 mg tablet Discontinued 5 mg PO TWICE A DAY 60 October 09, 2021 12:00am December 24, 2021 12:22pm ergocalciferol 1.25 mg oral capsule (3 sources) Provitamin D2 Compound take 1 capsule by mouth every week ergocalciferol (Vitamin D-2) 1.25 MG (09302 UT) capsule Take 1 capsule (1.25 mg) by mouth 1 (one) time per week. Active take 1 capsule by mouth every we ek ergocalciferol (Vitamin D-2) 1.25 MG (28224 UT) capsule Take 1 capsule (1,250 mcg) by mouth 1 (one) time per week. Active escitalopram 5 mg oral tablet (20 sources) Serotonin Reuptake Inhibitor Start: 06-07-2024 take 1 tablet by mouth once daily escitalopram (Lexapro) 5 mg tablet Indications: Persistent depressive disorder Take 1 tablet (5 mg) by mouth once daily. 90 tablet 3 06/07/2024 Active Start: 05-14-2022 take 1 tablet by emily th once daily Escitalopram Oxalate 10 mg tablet Active 10 mg PO DAILY May 14, 2022 1:00am Start: 01-18-2021 End: 05-14-2022 take 1 tablet by mouth once daily escitalopram oxalate (LEXAPRO) 20 mg tablet Indications: SOCORRO (generalized anxiety disorder) Take 1 tablet by mouth once daily. 90 tablet 3 03/15/2021 Active take 1 tablet by emily th once daily escitalopram (Lexapro) 5 mg tablet Take 1 tablet (5 mg) by mouth once daily. Active Comment on above: Take 1 tablet by emily th once daily. ferrous sulfate 400 mg delayed release oral tablet (3 sources) take 400 mg by mouth once daily FERROUS SULFATE ORAL Take 400 mg by mouth once daily. Active fluticasone propionate 0.05 mg/actuat metered dose nasal spray (14 sources) Corticosteroid Start: take 1 spray(s) nasal route once daily fluticasone (FLONASE) 50 mcg/actuation nasal spray SPRAY 1 SPRAY INTO EACH NOSTRIL EVERY DAY 16 mL 5 10/02/2020 Active take 2 spray(s) nasa l route every twelve hours Flonase Allergy Relief 50 mcg/actuation nasal spray Administer 2 sprays into each nostril every 12 hours. Active Comment on above: SPRAY 1 SPRAY INTO E ACH NOSTRIL EVERY DAY gabapentin 400 mg oral capsule (20 sources) Anti-epileptic Agent Start: 11-09-2020 End: 09-15-2024 take 1 capsule by mouth three times daily gabapentin (NEURONTIN) 400 mg capsule Indications: Multiple sclerosis (HCC) TAKE 1 CAPSULE BY MOUTH THREE TIMES DAILY FOR 90 DAYS. 90 capsule 2 11/09/2020 Active take 2 capsules by m outh three times daily Gabapentin 100 MG Oral Capsule TAKE 2 CAPSULES 3 TIMES DAILY. Quantity: 0 Refills: 0 Ordered: 26-Feb-2018 DO Active Gabapentin 400 M G TABS TAKE 1 TABLET 3 TIMES DAILY. Quantity: 0 Refills: 0 Ordered: 25-Feb-2018 DO Active Comment on above: TAKE 1 CAPSULE BY MO [facility] THREE TIMES DAILY FOR 90 DAYS. hydrOXYzine hydrochloride 10 mg oral tablet (20 sources) Antihistamine Start: 07-25-19 take 1 tablet by mouth once daily hydrOXYzine HCl (ATARAX) 10 mg tablet Take 10 mg by mouth once daily. 07/25/2023 Active Start: 11-28-2022 End: 09-15-2024 take 1 tablet by mouth twice daily Hydroxyzine Hcl 10 mg tablet Discontinued 10 mg PO TWICE A DAY 60 June 01, 2024 10:17am September 15, 2024 5:47pm Start: 12-10-2021 End: 11-28-2022 take 1 capsule by mouth three times daily as needed for nausea Hydroxyzine Pamoate 25 mg capsule Discontinued 25 mg PO THREE TIMES A DAY as needed for nausea/dizziness December 20, 2021 4:54pm December 24, 2021 9:28pm Comment on above: Take 10 mg by mouth once daily. ketotifen 0.25 mg/ml ophthalmic solution (7 sources) Histamine-1 Receptor Inhibitor Start: take 1 drop(s) into the eye(s) twice daily ALAWAY 0.025 % (0.035 %) ophthalmic solution Indications: Allergic conjunctivitis of both eyes USE 1 DROP IN BOTH EYES TWICE DAILY. IN AFFECTED EYE(S). 10 mL 2 11/04/2020 Active Comment on above: USE 1 DROP IN BOTH E YES TWICE DAILY. IN AFFECTED EYE(S). L.acid-B.animalis,bi fid, (FORTIFY OPTIMA PROBIOTIC) 50 billion cell cpDR (2 sources) L.acid-B.animali s,bifid , (FORTIFY OPTIMA PROBIOTIC) 50 billion cell cpDR Take by mouth. Active magnesium oxide 400 mg oral tablet (20 sources) Start: End: magnesium oxide 400 mg magnesium tab 07/25/2023 Active Start: 10-09-2021 End: 05-07-2023 take 1 tablet by mouth twice daily Magnesium Oxide 250 mg magnesium tablet Discontinued 250 mg PO TWICE A DAY 60 October 11, 2022 12:00am May 07, 2023 2:26pm melatonin 10 mg oral capsule (7 sources) Start: 03-07-2018 take 1 capsule by mouth once daily at bedtime melatonin 10 mg cap Take 1 capsule by mouth daily at bedtime. 2 03/07/2018 Active Comment on above: Take 1 capsule by mo [facility] daily at bedtime. Multivitamin preparation (7 sources) Start: 01-18-2021 take 1 tablet by mouth once daily Multivitamin Active 1 TABLET PO DAILY January 18, 2021 10:14am Start: 01-18-2021 take 1 tablet by emily th once daily Multivitamin Active 1 TABLET PO DAILY January 17, 2021 11:00pm Start: 01-18-2021 take 1 tablet by emily th once daily Multivitamin Active 1 TABLET PO DAILY January 18, 2021 12:00am multivitamin tablet (3 sources) take 1 tablet by mouth once daily multivitamin tablet Take 1 tablet by mouth once daily. Active Multivitamin tablet (5 sources) Start: 01-18-2021 Multivitamin tablet Active 1 {tbl} PO DAILY January 18, 2021 12:00am Start: 01-18-2021 Multivitamin t ablet Active 1 {tbl} PO DAILY January 17, 2021 11:00pm multivitamin with minerals (VISION/OPTIGEN) tablet (7 sources) Start: 01-18-2021 multivitamin w ith minerals (VISION/OPTIGEN) tablet Take by mouth. 01/18/2021 Active Start: 01-18-2021 multivitamin w ith minerals (VISION/OPTIGEN) tablet Take by mouth. 0 01/18/2021 Active Comment on above: Take by mouth. naproxen 25 mg/ml oral suspension (1 source) Nonsteroidal Anti-inflammatory Drug Start: End: take 20 mL by mouth twice daily naproxen (Naprosyn) 125 mg/5 mL suspension Indications: TMJ dysfunction Take 20 mL (500 mg) by mouth 2 times a day for 7 days. 280 mL 12/26/2023 01/02/2024 Active omega 1-tgc-dbp-fish oil (Fish OiL) 1,000 mg (120 mg-180 mg) capsule (7 sources) take 1 capsule by mouth every twenty-four hours omega 8-ckr-jqm-fish oil (Fish OiL) 1,000 mg (120 mg-180 mg) capsule Take 1 capsule (1,000 mg) by mouth once every 24 hours. Active ondansetron 4 mg oral tablet (7 sources) Serotonin-3 Receptor Antagonist Start: take 1 tablet by mouth every eight hours as needed for dizziness and dizziness ondansetron (ZOFRAN) 4 mg tablet Indications: Dizziness Take 1 tablet by mouth every 8 hours as needed. 20 tablet 03/15/2021 Active Comment on above: Take 1 tablet by emily th every 8 hours as needed. prednisoLONE 3 mg/ml oral solution (1 source) Corticosteroid Start: End: take 10 mL by mouth twice daily prednisoLONE (Prelone) 15 mg/5 mL oral solution Indications: TMJ dysfunction Take 10 mL (30 mg) by mouth 2 times a day for 5 days. 100 mL 12/26/2023 12/31/2023 Active SUMAtriptan 100 mg oral tablet (7 sources) Serotonin-1b and Serotonin-1d Receptor Agonist Start: 024 take 1 tablet by mouth every two hours as needed for headache SUMAtriptan (IMITREX) 100 mg tablet Take 1 tablet (100 mg) by mouth as needed for migraine headache (see administration instructions). at onset of headache.May repeat after 2 hours. 9 tablet 07/28/2023 Active Comment on above: Take 1 tablet (100 m g) by mouth as needed for migraine headache (see administration instructions). at onset of headache.May repeat after 2 hours. teriflunomide 14 mg oral tablet (20 sources) Pyrimidine Synthesis Inhibitor Start: 023 End: 025 take 1 tablet by mouth once daily teriflunomide (AUBAGIO) 14 mg tablet Take 14 mg by mouth once daily. 07/02/2023 Active Start: 12-24-2021 End: 05-14-2022 take 1 tablet by mouth once daily Teriflunomide (Aubagio) 14 mg tablet Discontinued 14 mg PO DAILY December 24, 2021 12:00am May 14, 2022 4:20pm Comment on above: Take 14 mg by mouth once daily. trospium chloride 20 mg oral tablet (17 sources) Cholinergic Muscarinic Antagonist Start: 11-23-2024 take 1 tablet by mouth twice daily trospium (SANCTURA) 20 mg tablet Indications: OAB (overactive bladder) Take 1 tablet by mouth two times a day. 90 tablet 3 11/23/2024 Active Start: 08-19-2023 End: 11-23-2024 take 1 tablet by mouth twice daily Trospium 20 mg tablet Discontinued 20 mg PO TWICE A DAY October 29, 2024 12:00am administer on an empty stomach Comment on above: Take 1 tablet by emily th two times a day. Zinc (3 sources) ZINC ORAL Take b y mouth. Active Zinc Acetate (2 sources) ZINC ACETATE ORA L Take by mouth. Active Completed/Discontinued Medications Medication Drug Class(es) Dates Sig (Normalized) Sig (Original) acetaminophen 325 mg / butalbital 50 mg / caffeine 40 mg oral tablet (20 sources) Barbiturate, Central Nervous System Stimulant, Methylxanthine Fioricet 50-325-40 MG TABS TAKE 1 TABLET EVERY 4 TO 6 HOURS NEEDED FOR PAIN. Quantity: 0 Refills: 0 Ordered: 25-Feb-2018 DO Active Vicodin 5-500 MG TABS (20 sources) Opioid Agonist Vicodin 5-500 MG TABS Take 1 tablet twice daily Quantity: 0 Refills: 0 Ordered: 25-Feb-2018 DO Active acetaminophen 325 mg / oxyCODONE hydrochloride 5 mg oral tablet (20 sources) Opioid Agonist take 1 tablet by mouth every six hours as needed for pain Percocet 5-325 MG Oral Tablet TAKE 1 TABLET EVERY 6 HOURS NEEDED FOR PAIN. Quantity: 0 Refills: 0 Ordered: 25-Feb-2018 DO Active alendronic acid 70 mg oral tablet (16 sources) Bisphosphonate Start: 07-27-2024 alendronate (Fosamax) 70 mg tablet Indications: Osteopenia, unspecified location Take 1 tablet (70 mg) by mouth every 7 days. 12 tablet 3 07/27/2024 Active Start: 07-19-2023 take 1 tablet by emily th every week Alendronate 70 mg tablet Discontinued 70 mg PO EVERY WEEK October 29, 2024 12:00am Start: 07-19-2023 alendronate (F osamax) 70 mg tablet Take 1 tablet (70 mg) by mouth every 7 days. 07/19/2023 Active Comment on above: TAKE 1 TABLET BY EMILY TH ONCE A WEEK BEFORE THE FIRST FOOD, BEVERAGE OR MEDICINE OF THE DAY WITH PLAIN WATER ALPRAZolam 0.5 mg oral tablet (16 sources) Benzodiazepine Start: 07-24-19 End: 10-30-19 Alprazolam 0.5 mg tablet Discontinued 0 .Route .COMPLEX 1 July 01, 2024 5:23pm October 29, 2024 3:08pm Take 1 tablet orally 30 minutes prior to MRI amitriptyline hydrochloride 25 mg oral tablet (20 sources) Tricyclic Antidepressant take 1 tablet by mouth at bedtime Elavil 25 MG TABS TAKE 1 TABLET AT BEDTIME. Quantity: 0 Refills: 0 Ordered: 25-Feb-2018 DO Active aspirin 81 mg delayed release oral tablet (20 sources) Platelet Aggregation Inhibitor, Nonsteroidal Anti-inflammatory Drug take 1 tablet by mouth once daily Teresita Aspirin EC Low Dose 81 MG Oral Tablet Delayed Release TAKE 1 TABLET DAILY. Quantity: 0 Refills: 0 Ordered: 26-Feb-2018 DO Active baclofen 10 mg oral tablet (20 sources) gamma-Aminobutyric Acid-ergic Agonist Start: 06-25-19 End: 09-21-19 take 1 tablet by mouth twice daily, then take 2 tablets by mouth once daily at bedtime Baclofen 10 mg tablet Discontinued 0 .ROUTE .COMPLEX 120 June 25, 2021 1:00am September 20, 2021 4:42pm One tablet PO BID and two tablets qhs Start: 01-18-2021 End: 06-25-2021 take 1 tablet by mouth at bedtime Baclofen 20 mg tablet Discontinued 20 mg PO AT BEDTIME March 22, 2021 9:33pm June 25, 2021 5:09pm take 1 tablet by emily th three times daily Baclofen 10 MG Oral Tablet TAKE 1 TABLET 3 TIMES DAILY. Quantity: 0 Refills: 0 Ordered: 26-Feb-2018 DO Active clonazePAM 0.5 mg oral tablet (20 sources) Benzodiazepine take 1 tablet by mouth three times daily clonazePAM 0.5 MG Oral Tablet TAKE 1 TABLET 3 TIMES DAILY. Quantity: 0 Refills: 0 Ordered: 26-Feb-2018 DO Active desmopressin acetate 0.1 mg oral tablet (13 sources) Vasopressin Analog, Factor VIII Activator Start: 10-11-19 End: 12-03-19 take 1 tablet by mouth twice daily Desmopressin (Ddavp) 0.1 mg tablet Discontinued 0.1 mg PO TWICE A DAY July 24, 2023 10:17pm December 03, 2023 5:31pm dimethyl fumarate 240 mg delayed release oral capsule (20 sources) Start: 01-19-20 End: 03-22-20 take 1 capsule by mouth twice daily Dimethyl Fumarate 240 mg capsule,delayed release(DR/EC) Discontinued 240 mg PO TWICE A DAY January 18, 2021 12:00am March 22, 2021 4:38pm diroximel fumarate 231 mg delayed release oral capsule (12 sources) Start: 03-22-20 End: 12-25-19 Diroximel Fumarate (Vumerity) 231 mg capsule,delayed release(DR/EC) Discontinued 462 mg PO TWICE A DAY March 22, 2021 1:00am December 24, 2021 9:26pm famotidine 20 mg oral tablet (20 sources) Histamine-2 Receptor Antagonist take 1 tablet by mouth once daily Pepcid 20 MG Oral Tablet TAKE 1 TABLET DAILY DIRECTED. Quantity: 0 Refills: 0 Ordered: 25-Feb-2018 DO Active ferrous gluconate 225 mg oral tablet (19 sources) Start: 01-19-20 End: 12-25-19 take 1 tablet by mouth once daily Ferrous Gluconate 225 mg (27 mg iron) tablet Discontinued 225 mg PO DAILY January 18, 2021 12:00am December 24, 2021 11:39am Start: 02-03-2018 take 1 tablet by emily th once daily in the morning Ferrous Gluconate 240 mg (27 mg iron) tablet TAKE 1 TABLET BY MOUTH EVERY DAY IN THE MORNING 2 02/03/2018 Active Comment on above: TAKE 1 TABLET BY EMILY TH EVERY DAY IN THE MORNING fingolimod 0.5 mg oral capsule (20 sources) Sphingosine 1-phosphate Receptor Modulator take 1 capsule by mouth once daily Gilenya 0.5 MG Oral Capsule TAKE 1 CAPSULE Daily Quantity: 0 Refills: 0 Ordered: 26-Feb-2018 DO Active fluorometholone 1 mg/ml ophthalmic suspension (4 sources) Corticosteroid Start: 025 Fluorometholone 0.1 % drops,suspension Discontinued 1 NMA OPHTHALMIC TWICE A DAY October 29, 2024 12:00am Start: 08-12-2024 take 1 drop(s) into the eye(s) twice daily fluorometholone (FML) 0.1 % ophthalmic suspension Administer 1 drop into both eyes 2 times a day. 08/12/2024 Active FLUoxetine 10 mg oral tablet (20 sources) Serotonin Reuptake Inhibitor PROzac 10 MG TABS TA KE 1 TABLET DAILY. Quantity: 0 Refills: 0 Ordered: 26-Feb-2018 DO Active glucagon (rdna) 1 mg injection (1 source) Antihypoglycemic Agent Start: 02-03-2024 End: 02-03-2024 intravenous, As needed, Starting on Fri02/03/24 at 1233, Intraprocedure Left AFO (7 sources) Start: 07-18-2022 End: 10-11-2022 Left AFO Discontinued 0 .Route .MEDSUPPLY July 18, 2022 12:00am October 11, 2022 1:14pm As directed Start: 07-18-2022 End: 10-11-2022 Left AFO Discontinued 0 .Rou te .MEDSUPPLY July 18, 2022 1:00am October 11, 2022 2:14pm As directed meclizine hydrochloride 25 mg oral tablet (20 sources) Antiemetic take 1 tablet by mouth three times daily as needed Meclizine HCl - 25 MG Oral Tablet TAKE 1 TABLET 3 TIMES DAILY NEEDED. Quantity: 0 Refills: 0 Ordered: 25-Feb-2018 DO Active mecobalamin (20 sources) Start: 10-29-2024 take 1 tablet by mouth every other day Mecobalamin (Vitamin B12) 5,000 mcg tablet,chewable Discontinued 5000 ug PO every other day October 29, 2024 12:00am Start: 01-18-2021 End: 05-14-2022 mecobalamin, vitamin B12, 1, 000 mcg chew Take by mouth. 01/18/2021 Active Comment on above: Take by mouth. 1 ml meperidine hydrochloride 50 mg/ml injection (2 sources) Opioid Agonist Start: 02-03-2024 End: 02-03-2024 intravenous, As needed, Starting on 02/03/24 at 1235, Intraprocedure Start: 02-03-2024 End: 02-03-2024 intravenous, As needed, Star ting on 02/03/24 at 1231, Intraprocedure 2 ml midazolam 5 mg/ml injection (4 sources) Benzodiazepine Start: 02-03-2024 End: 02-03-2024 intravenous, Administer over 5 Minutes, As needed, Starting on 02/03/24 at 1238, Intraprocedure Start: 02-03-2024 End: 02-03-2024 intravenous, As needed, Star ting on 02/03/24 at 1239, Intraprocedure Mometasone (2 sources) Corticosteroid Start: 10-29-2024 propel Discont inued PO daily October 29, 2024 12:00am 12 hr orphenadrine citrate 100 mg extended release oral tablet (20 sources) Muscle Relaxant Start: 12-03-2023 End: 09-15-2024 take 1 tablet by mouth once daily Orphenadrine Citrate 100 mg tablet extended release Discontinued 100 mg PO .Nightly June 01, 2024 10:17am September 15, 2024 5:47pm Start: 09-20-2021 End: 12-03-2023 take 1 tablet by mouth twice daily as needed for muscle spasms Orphenadrine Citrate 100 mg tablet extended release Discontinued 100 mg PO TWICE A DAY as needed for muscle spasm 60 July 24, 2023 10:18pm December 03, 2023 5:33pm OXcarbazepine 150 mg oral tablet (16 sources) Anti-epileptic Agent Start: 09-15-2024 End: 10-29-2024 take 1 tablet by mouth twice daily Oxcarbazepine 150 mg tablet Discontinued 150 mg PO TWICE A DAY September 15, 2024 12:00am October 29, 2024 3:13pm Start: 04-26-2024 End: 09-15-2024 take 1 tablet by mouth twice daily Oxcarbazepine 300 mg tablet Discontinued 300 mg PO TWICE A DAY 60 June 01, 2024 1:00am September 15, 2024 5:46pm Start: 01-29-2024 End: 06-01-2024 take 1 tablet by mouth twice daily Oxcarbazepine 150 mg tablet Discontinued 150 mg PO TWICE A DAY January 29, 2024 12:00am June 01, 2024 10:17am oxybutynin chloride 5 mg oral tablet (20 sources) Cholinergic Muscarinic Antagonist take 1 tablet by mouth three times daily Oxybutynin Chloride 5 MG Oral Tablet TAKE 1 TABLET 3 times daily Quantity: 0 Refills: 0 Ordered: 26-Feb-2018 DO Active predniSONE 10 mg oral tablet (12 sources) Start: End: Prednisone 10 mg tablet Discontinued 0 .Route .COMPLEX January 18, 2021 12:00am March 22, 2021 4:37pm 6 tabs x 3 day; 5 tabs x 1 day; 4 tabs x 1 day; 3 tabs x 1 day; 2 tabs x 1 day; 1 tab x 1 day Start: 01-18-2021 End: 03-22-2021 Prednisone Discontinued 0 .R oute .COMPLEX January 18, 2021 12:00am March 22, 2021 4:37pm 6 tabs x 3 day; 5 tabs x 1 day; 4 tabs x 1 day; 3 tabs x 1 day; 2 tabs x 1 day; 1 tab x 1 day 24 hr propranolol hydrochloride 60 mg extended release oral capsule (2 sources) beta-Adrenergic Baltazar Start: 11-27-2023 End: 01-29-2024 take 1 capsule by mouth once daily propranolol LA (Inderal LA) 60 mg 24 hr capsule Take 1 capsule (60 mg) by mouth once daily. 11/27/2023 01/29/2024 Discontinued (Med List Cleanup) rizatriptan 5 mg oral tablet (20 sources) Serotonin-1b and Serotonin-1d Receptor Agonist take 1 tablet by mouth every two hours as needed, then take 3 tablets by mouth every twenty-four hours as needed Maxalt-EDUCATION ADMINISTRATOR 10 MG Oral Tablet Disintegrating TAKE 1 TABLET AT ONSET OF HEADACHE. MAY REPEAT EVERY 2 HOURS NEEDED. MAXIMUM 3 TABLETS IN 24 HOURS. Quantity: 0 Refills: 0 Ordered: 25-Feb-2018 DO Active Maxalt 5 MG TABS TAKE 1 TABLET AT ONSET OF HEADACHE. MAY REPEAT EVERY 2 HOURS NEEDED. MAXIMUM 3 TABLETS IN 24 HOURS. Quantity: 0 Refills: 0 Ordered: 25-Feb-2018 DO Active tiZANidine 2 mg oral tablet (20 sources) Central alpha-2 Adrenergic Agonist Start: 09-26-2021 End: 10-09-2021 take 1 tablet by mouth at bedtime Tizanidine 2 mg tablet Discontinued 2 mg PO BEDTIME September 26, 2021 12:00am October 09, 2021 4:17pm take 2 tablets by mo [facility] every eight hours tiZANidine HCl - 4 MG Oral Tablet TAKE 2 TABLET Every 8 hours Quantity: 0 Refills: 0 Ordered: 26-Feb-2018 DO Active traMADol hydrochloride 50 mg oral tablet (20 sources) Opioid Agonist Ultram 50 MG TAB S Take 1 tablet twice daily Quantity: 0 Refills: 0 Ordered: 25-Feb-2018 DO Active vitamin b12 1 mg/ml injectable solution (5 sources) Vitamin B12 Start: 03-22-20 End: 03-22-20 inject 1000 ug by intramuscular injection once cyanocobalamin (vitamin B-12) 1,000 mcg/mL injection solution Discontinued 1000 MCG IM ONCE 1 March 22, 2021 4:27pm March 22, 2021 5:26pm take 1 tablet by emily three times weekly cyanocobalamin (Vitamin B-12) 1,000 mcg tablet Take 1 tablet (1,000 mcg) by mouth 3 times a week. Active Problems Active Problems Problem Classification Problem Date Documented Da te Episodic/Chronic Acquired foot deformities (7 sources) Foot-drop; Translations: [Foot drop, left foot] 07-18-2022 Episodic Anxiety disorders (20 sources) Mixed anxiety and depressive disorder; Translations: [Dysthymic disorder] 09-18-2017 Chronic Disorders of lipid metabolism (19 sources) Hypercholesterolemia; Translations: [Pure hypercholesterolemia, unspecified] Onset: 1 01-18-2021 Chronic Genitourinary symptoms and ill-defined conditions (19 sources) Urinary incontinence; Translations: [Unspecified urinary incontinence] Onset: 4 05-14-2022 Chronic Headache; including migraine (7 sources) Migraine; Translations: [Migraine, unspecified, not intractable, without status migrainosus] Onset: 4 07-28-2023 Chronic Headache; including migraine (1 source) Headache; including migraine; Translations: [Nonintractable headache, unspecified chronicity pattern, unspecified headache type] Onset: 4 Mood disorders (17 sources) Recurrent major depression in partial remission; Translations: [Major depressive disorder, recurrent, in partial remission] Onset: 7 04-18-2017 Chronic Multiple sclerosis (20 sources) Multiple sclerosis; Translations: [Multiple sclerosis] Onset: 7 Resolved: 8 Chronic Nutritional deficiencies (7 sources) Vitamin D deficiency; Translations: [Vitamin D deficiency, unspecified] 09-18-2017 Chronic Osteoporosis (3 sources) Senile osteoporosis; Translations: [Age-related osteoporosis without current pathological fracture] Onset: 4 02-17-2024 Chronic Other acquired deformities (20 sources) Contracture of ankle joint; Translations: [Contracture, unspecified ankle] 05-14-2022 Chronic Other acquired deformities (2 sources) Contracture, unspecified ankle; Translations: [Contracture of joint, ankle and foot] Onset: 3 05-14-2022 Chronic Other and unspecified benign neoplasm (7 sources) Hemangioma of vertebral column; Translations: [Hemangioma of other sites] 10-10-2022 Episodic Other and unspecified benign neoplasm (1 source) History of polyp of colon; Translations: [Personal history of colonic polyps] 02-03-2024 Episodic Other circulatory disease (8 sources) H/O: varicose veins; Translations: [Personal history of other diseases of the circulatory system] 09-13-2024 Episodic Other circulatory disease (1 source) Personal history of other diseases of the circulatory system; Translations: [Personal history of other diseases of the circulatory system] Onset: 5 Episodic Other connective tissue disease (20 sources) Contracture of muscle of left upper arm; Translations: [Spasm of muscle] 05-14-2022 Episodic Other connective tissue disease (18 sources) Fine motor impairment ; Translations: [Other specified conditions influencing health status] Episodic Other connective tissue disease (18 sources) Muscle weakness of upper limb; Translations: [Muscle weakness (generalized)] Episodic Other connective tissue disease (2 sources) Contracture of muscle, left upper arm; Translations: [Spasm of muscle] Onset: 3 05-14-2022 Episodic Other connective tissue disease (1 source) Other symptoms and signs involving the nervous system; Translations: [Other symptoms and signs involving the nervous system] Onset: 3 Episodic Other connective tissue disease (1 source) Muscle weakness (generalized); Translations: [Muscle weakness (generalized)] Onset: 3 Episodic Other connective tissue disease (5 sources) Spasm; Translations: [Other muscle spasm] 01-29-2024 Episodic Other diseases of bladder and urethra (4 sources) Overactive bladder; Translations: [Overactive bladder] 08-19-2023 Chronic Other diseases of bladder and urethra (1 source) Overactive bladder; Translations: [OAB (overactive bladder)] Onset: 5 Chronic Other diseases of veins and lymphatics (5 sources) Peripheral venous insufficiency; Translations: [Venous insufficiency (chronic) (peripheral)] 09-13-2024 Episodic Other diseases of veins and lymphatics (1 source) Venous insufficiency (chronic) (peripheral); Translations: [Venous insufficiency (chronic) (peripheral)] Onset: 5 Episodic Other eye disorders (7 sources) Postinflammatory optic atrophy; 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, unspecified eye] Onset: 1 05-10-2011 Chronic Other gastrointestinal disorders (8 sources) Incontinence of feces; Translations: [Full incontinence of feces] 05-14-2022 Episodic Other lower respiratory disease (7 sources) Snoring; Translations: [Snoring] 10-07-2018 Episodic Other nervous system disorders (20 sources) Abnormal gait; Translations: [Unspecified abnormalities of gait and mobility] 05-14-2022 Episodic Other nervous system disorders (4 sources) Unspecified abnormalities of gait and mobility; Translations: [Abnormality of gait] Onset: 3 Episodic Other nervous system disorders (20 sources) History of clinical finding in subject; Translations: [Personal history of other disorders of nervous system and sense organs] Episodic Other nervous system disorders (3 sources) Trigeminal neuralgia; Translations: [Trigeminal neuralgia] Onset: 4 Episodic Other nervous system disorders (11 sources) Trigeminal neuralgia; Translations: [Trigeminal neuralgia] 01-29-2024 Episodic Other nutritional; endocrine; and metabolic disorders (12 sources) Hypercalcemia; Translations: [Hypercalcemia] 06-25-2021 Chronic Other nutritional; endocrine; and metabolic disorders (7 sources) Hypophosphatemia; Translations: [Other disorders of phosphorus metabolism] Onset: 4 07-27-2023 Chronic Other nutritional; endocrine; and metabolic disorders (14 sources) History of nutritional deficiency; Translations: [Personal history of other endocrine, nutritional and metabolic disease] 05-14-2022 Episodic Paralysis (12 sources) Left hemiparesis; Translations: [Hemiplegia, unspecified affecting left nondominant side] Onset: 4 07-28-2023 Chronic Residual codes; unclassified (11 sources) Edema; Translations: [Edema, unspecified] 12-02-2023 Episodic Residual codes; unclassified (3 sources) 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; Translations: [Pallor] 10-29-2024 Episodic Residual codes; unclassified (1 source) Pallor; Translations: [Pallor] Onset: 5 Episodic Spondylosis; intervertebral disc disorders; other back problems (8 sources) Low back pain; Translations: [Low back pain] 05-14-2022 Episodic Past or Other Problems Problem Classification Problem Date Documented Date Episodic/Chronic Blindness and vision defects (7 sources) Diplopia; Translations: [Diplopia] Onset: 3 05-22-2012 Episodic Disorders of teeth and jaw (3 sources) Temporomandibular joint disorder; Translations: [Unspecified temporomandibular joint disorder, unspecified side] Onset: 4 12-26-2023 Episodic E Codes: Fall (3 sources) Fall; Translations: [Unspecified fall, initial encounter] Onset: 8 03-16-2018 Episodic Fluid and electrolyte disorders (15 sources) Hypo-osmolality and hyponatremia; Translations: [Hyponatremia] Onset: 4 Resolved: 4 07-31-2023 Episodic Immunizations and screening for infectious disease (7 sources) Anti-nuclear factor positive; Translations: [Other specified abnormal immunological findings in serum] Onset: 9 08-20-2019 Episodic Malaise and fatigue (20 sources) Malaise and fatigue; Translations: [Other malaise and fatigue] Onset: 8 03-16-2018 Episodic Menopausal disorders (4 sources) Drug therapy finding; Translations: [Hormone replacement therapy] Onset: 4 Resolved: 8 12-19-2017 Episodic Mycoses (1 source) Candidiasis, unspecified; Translations: [Libertad infection] Onset: 4 Episodic Other and unspecified benign neoplasm (2 sources) Personal history of colonic polyps; Translations: [Personal history of colon polyps] Onset: 4 Episodic Other bone disease and musculoskeletal deformities (8 sources) Osteopenia; Translations: [Other specified disorders of bone density and structure, unspecified site] Onset: 4 05-07-2021 Episodic Other bone disease and musculoskeletal deformities (2 sources) Other specified disorders of bone density and structure, unspecified site; Translations: [Other specified disorders of bone density and structure, unspecified site] Onset: 5 Episodic Other connective tissue disease (8 sources) Other symptoms and signs involving the musculoskeletal system; Translations: [Other musculoskeletal symptoms referable to limbs] Onset: 3 02-16-2013 Episodic Other connective tissue disease (4 sources) Recurrent falls ; Translations: [Repeated falls] Onset: 8 03-16-2018 Episodic Other eye disorders (7 sources) Internuclear ophthalmoplegia; 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, unspecified eye] Onset: 3 07-28-2023 Episodic Other hematologic conditions (2 sources) Personal history of diseases of the blood and blood-forming organs and certain disorders involving the immune mechanism; Translations: [Personal history of diseases of the blood and blood-forming organs and certain disorders involving the immune mechanism] Onset: 4 Episodic Other nutritional; endocrine; and metabolic disorders (2 sources) Personal history of other endocrine, nutritional and metabolic disease; Translations: [Personal history of nutritional deficiency] Onset: 4 05-14-2022 Episodic Other screening for suspected conditions (not mental disorders or infectious disease) (15 sources) Encounter for screening mammogram for malignant neoplasm of breast; Translations: [Patient encounter status] Onset: 8 Resolved: 8 Episodic Residual codes; unclassified (7 sources) Family history of cancer of colon; Translations: [Family history of malignant neoplasm of digestive organs] Onset: 8 10-21-2017 Episodic Residual codes; unclassified (8 sources) Tobacco user; Translations: [Tobacco use] Resolved: 1 12-19-2017 Episodic Residual codes; unclassified (1 source) Edema, unspecified; Translations: [Edema, unspecified] Onset: 4 Episodic Syncope (8 sources) Syncope; Translations: [Syncope and collapse] Onset: 5 08-27-2024 Episodic Unclassified (3 sources) Onset: 5 Resolved: 5 05-21-2024 Results Test Name Value Interpretation Reference Range Facility BASIC METABOLIC PANEL WITH A SAMANTHA WONGon 12-04-2024 BUN/CREATININE RATIO SEE NOTE: Normal - [facility] Comment on above: Result Comment: Not Reported: BUN and Creatinine are within reference range. Performed By: #### [id number] #### [facility] [address], [address] [place] [id number] Green Plumber: Hubert Mayers MD Calcium [Mass/Vol] 9.1 mg/dL Normal 8.6-10.4 [facility] Comment on above: Performed By: #### [id number] #### [facility] [address], [address] [place] [id number] Green Plumber: Hubert Mayers MD Chloride [Moles/Vol] 105 mmol/L Normal 98-110 [facility] Comment on above: Performed By: #### [id number] #### [facility] of [place] [address] Green Plumber: Hubert Mayers MD CO2 [Moles/Vol] 27 mmol/L Normal 20-32 [facility] Comment on above: Performed By: #### [id number] #### [facility] of [place] [address] Green Plumber: Hubert Mayers MD Creatinine [Mass/Vol] 0.63 mg/dL Normal 0.50-1.[address] [facility] Comment on above: Performed By: #### [id number] #### [facility] [place] [address] Green Plumber: Hubert Mayers MD ELECTROLYTE BALANCE 7 mmol/L (calc) Normal 7-17 [facility] Comment on above: Performed By: #### [id number] #### [facility] of [place] [address] Green Plumber: Hubert Mayers MD GFR/1.73 sq M.predicted among non-blacks MDRD (S/P/Bld) [Vol rate/Area] 101 mL/min/{1.73_m2} Normal > OR = 60 [facility] Comment on above: Performed By: #### [id number] #### [facility] [place] [address] Green Plumber: Hubert Mayers MD Glucose [Mass/Vol] 97 mg/dL Normal 65-99 [facility] Comment on above: Result Comment: Fasting reference interval Performed By: #### [id number] #### [facility] of [place] [address] Green Plumber: Hubert Mayers MD Potassium [Moles/Vol] 3.9 mmol/L Normal 3.5-5.[address] [facility] Comment on above: Performed By: #### [id number] #### [facility] of [facility] [address] [place], [place] [address] Rd, [address] Green Plumber: Hubert Mayers MD Sodium [Moles/Vol] 139 mmol/L Normal 135-146 [facility] Comment on above: Performed By: #### [id number] #### [facility] [address] [place], [place] [address] Rd, [address] [place] [address] Green Plumber: Hubert Mayers MD Urea nitrogen [Mass/Vol] 14 mg/dL Normal 7-25 [facility] Comment on above: Performed By: #### [id number] #### [facility] [address], [address] Green Plumber: Hubert Mayers MD CNOVon 11-23-2024 CNOV Office Visit (UROLMD ) -- SOCORRO GRACE ([id number]) 1965 F Date Time Provider Department 11/23/24 4:00 PM DIMPLE SALAZAR UROROSA MARIAD During your visit today, we recorded the following information about you: Weight Height 65.8 kg 1.676 m Sherron Trujillo LPN 11/23/2024 4:18 PM Signed Bladder scan obtained 7 ml of urine Dimple Salazar, VETERINARY LABORATORY DIAGNOSTICIAN.DIRECTOR REGULATORY COMPLIANCE 11/23/2024 4:18 PM Signed Socorro Sutton Sanjay is a 59 year old female who presents today for evaluation of Patient presents with: Follow Up: OAB (overactive bladder) CHIEF COMPLAINT AND HISTORY OF PRESENT ILLNESS CC: follow up 59 year old female with a history of MS with OAB, urinary urge incontinence presents for follow up, she may have to wait a few seconds for her stream to start her stream, denies straining to void, denies recent uti. Taking trospium 20 mg bid with good results PVR 7 cc DTF:every 2-3 hours was 1.5-2.0 hours NTF: 0-3 times URGENCY:yes improved UUI:yes improved DEVIN:rare STRAINING:no COMPLETE EMPTYING:yes PADS PER DAY: one when she leaves the house FLUID INTAKE: water 80 ounces 1 cup of coffee in the morning vaginal deliveries s/p hysterectomy for endometriosis Past Urological History: Stones:no Surgery:no Tumors:no Infections:no VITALS: Height 167.6 cm (5' 6), weight 65.8 kg (145 lb). ALLERGIES: Seasonal Allergies and Penicillins MEDICATIONS: Current Outpatient Medications Medication Sig Dispense Refill amantadine HCl (SYMMETREL) 100 mg capsule Take 100 mg by mouth two times a day. Cyclobenzap and Irritant Cntr Irr2 10 mg kit orphenadrine ER (NORFLEX) 100 mg tablet Take 100 mg by mouth two times a day. calcium carbonate/vitamin D3 (CALCIUM 600 + D ORAL) Take by mouth. ZINC ACETATE ORAL Take by mouth. trospium (SANCTURA) 20 mg tablet Take 1 tablet by mouth two times a day. 90 tablet 3 alendronate (FOSAMAX) 70 mg tablet TAKE 1 TABLET BY MOUTH ONCE A WEEK BEFORE THE FIRST FOOD, BEVERAGE OR MEDICINE OF THE DAY WITH PLAIN WATER magnesium oxide 400 mg magnesium tab hydrOXYzine HCl (ATARAX) 10 mg tablet Take 10 mg by mouth once daily. ascorbic acid, vitamin C, 500 mg cap Take 500 mg by mouth once daily. mecobalamin, vitamin B12, 1,000 mcg chew Take by mouth. multivitamin with minerals (VISION/OPTIGEN) tablet Take by mouth. escitalopram oxalate (LEXAPRO) 20 mg tablet Take 1 tablet by mouth once daily. 90 tablet 3 gabapentin (NEURONTIN) 400 mg capsule TAKE 1 CAPSULE BY MOUTH THREE TIMES DAILY FOR 90 DAYS. 90 capsule 2 fluticasone (FLONASE) 50 mcg/actuation nasal spray SPRAY 1 SPRAY INTO EACH NOSTRIL EVERY DAY 16 mL 5 Cholecalciferol, Vitamin D3, 5,000 unit cap Take 5,000 Units by mouth once daily. L.acid-B.animalis,bifid,in marcela (FORTIFY OPTIMA PROBIOTIC) 50 billion cell cpDR Take by mouth. (Patient not taking: Reported on 11/23/2024) SUMAtriptan (IMITREX) 100 mg tablet Take 1 tablet (100 mg) by mouth as needed for migraine headache (see administration instructions). at onset of headache.May repeat after 2 hours. 9 tablet 0 teriflunomide (AUBAGIO) 14 mg tablet Take 14 mg by mouth once daily. (Patient not taking: Reported on 05/04/2024) ondansetron (ZOFRAN) 4 mg tablet Take 1 tablet by mouth every 8 hours as needed. (Patient not taking: Reported on 05/04/2024) 20 tablet 0 ALAWAY 0.025 % (0.035 %) ophthalmic solution USE 1 DROP IN BOTH EYES TWICE DAILY. IN AFFECTED EYE(S). 10 mL 2 Ferrous Gluconate 240 mg (27 mg iron) tablet TAKE 1 TABLET BY MOUTH EVERY DAY IN THE MORNING 2 melatonin 10 mg cap Take 1 capsule by mouth daily at bedtime. 2 No current facility-administered medications for this visit. SOCIAL HISTORY: Social History Tobacco Use Smoking status: Former Current packs/day: 0.00 Average packs/day: 0.3 packs/day for 13.0 years (3.3 ttl pk-yrs) Types: Cigarettes Start date: 1979 Quit date: 1992 Years since quittin.5 Smokeless tobacco: Never Tobacco comments: 1 cig per week - recreational Substance Use Topics Alcohol use: Yes Comment: once a night Drug use: No PAST MEDICAL HISTORY: PAST MEDICAL HISTORY Diagnosis Date Depression SOCORRO (generalized anxiety disorder) Headache in front of head 07/27/2023 Possibly due to UTI with E. coli, also it is in a sinus distribution for the headache and may be new onset migraine but since this is the first time its happened to her diagnosis of migraine cannot be made with certainty. MS (multiple sclerosis) ([facility]) 2006 Dr. Buckley Osteopenia hip, spine. BMD 03/29 S/P hysterectomy LAYNE/BSO - endometriosis Snoring normal sleep study. on flonase Vitamin D deficiency PAST SURGICAL HISTORY: PAST SURGICAL HISTORY Procedure Laterality Date COLONOSCOPY 11/23/2013 - repeat 5 years - reminder created TOTAL ABDOMINAL HYSTERECT W/WO RMVL TUBE OVARY 05/12/1999 appendix with LAYNE/BSO for endometriosis F (more content not included)... Normal [facility] Protein C, Functionalon 06-2 PROTEIN C,FUNC TNP Normal [facility] Comment on above: Performed By: #### L 101.9900, L4500.0100, L3100.7050, L3100.8408, L3100.5440, L3100.7250, L3100.7325, L3100.5700, L3100.7335, L3100.5800, L3100.5600 ####[facility] [address] [place], [place], [id number] LAM Comprehensive Panelon ANTI-DNA (DS)AB 1 IU/mL Normal 0-9 [facility] Comment on above: Result Comment: Nega tive <5 Equivocal 5 - 9 Positive >9 Performed By: #### L 101.9900, L4500.0100, L3100.7050, L3100.8408, L3100.5440, L3100.7250, L3100.7325, L3100.5700, L3100.7335, L3100.5800, L3100.5600 ####[facility] [address] [place], [place], [id number] ANTI-SS-A < 0.2 Normal 0.0-0.9 [facility] Comment on above: Performed By: #### L 101.9900, L4500.0100, L3100.7050, L3100.8408, L3100.5440, L3100.7250, L3100.7325, L3100.5700, L3100.7335, L3100.5800, L3100.5600 ####[facility] [address] [place], [place], [id number] ANTI-SS-B < 0.2 Normal 0.0-0.9 [facility] Comment on above: Performed By: #### L 101.9900, L4500.0100, L3100.7050, L3100.8408, L3100.5440, L3100.7250, L3100.7325, L3100.5700, L3100.7335, L3100.5800, L3100.5600 ####[facility] [address] [place], [address] Anticardiolipin IgA,G,Mon ANTICARDIO IgA < 9 Normal 0-11 [facility] Comment on above: Result Comment: Nega tive: <12 Indeterminate: 12 - 20 Low-Med Positive: >20 - 80 High Positive: >80 Performed By: #### L 101.9900, L4500.0100, L3100.7050, L3100.8408, L3100.5440, L3100.7250, L3100.7325, L3100.5700, L3100.7335, L3100.5800, L3100.5600 ####[facility] [address] [place], [address] ANTICARDIO IgG < 9 Normal 0-14 [facility] Comment on above: Result Comment: Nega tive: <15 Indeterminate: 15 - 20 Low-Med Positive: >20 - 80 High Positive: >80 Performed By: #### L 101.9900, L4500.0100, L3100.7050, L3100.8408, L3100.5440, L3100.7250, L3100.7325, L3100.5700, L3100.7335, L3100.5800, L3100.5600 ####[facility] [address] [place], [place], [id number] Anticardio.IgM 14 MPL U/mL High 0-12 [facility] Comment on above: Result Comment: Nega tive: <13 Indeterminate: 13 - 20 Low-Med Positive: >20 - 80 High Positive: >80 Performed By: #### L 101.9900, L4500.0100, L3100.7050, L3100.8408, L3100.5440, L3100.7250, L3100.7325, L3100.5700, L3100.7335, L3100.5800, L3100.5600 ####[facility] [address] [place], [address] Complement C3on 11-01-2024 COMP C3 135 mg/dL Normal 82-167 [facility] Comment on above: Performed By: #### L 101.9900, L4500.0100, L3100.7050, L3100.8408, L3100.5440, L3100.7250, L3100.7325, L3100.5700, L3100.7335, L3100.5800, L3100.5600 ####[facility] [address] [place], [place], [id number] Complement C4on 11-01-2024 COMPLEMENT, C4 18 mg/dL Normal 12-38 [facility] Comment on above: Performed By: #### L 101.9900, L4500.0100, L3100.7050, L3100.8408, L3100.5440, L3100.7250, L3100.7325, L3100.5700, L3100.7335, L3100.5800, L3100.5600 ####[facility] [address] [place], [address] Complement CH50on 11-01-2024 COMPLEMENT,CH50 > 60 Normal >41 [facility] Comment on above: Result Comment: Age Male Female 1 - 30 days Not Estab. Not Estab. 31 days - 6 months >32 >20 7 months - 17 years >39 >39 >17 years >41 >41 NOTE: The adult (>17 years) reference interval range is used to flag abnormals on this report. If the patient is 17 years old or younger, use the table above to determine out of range values. Performed By: #### L 101.9900, L4500.0100, L3100.7050, L3100.8408, L3100.5440, L3100.7250, L3100.7325, L3100.5700, L3100.7335, L3100.5800, L3100.5600 ####[facility] [address] [place], [place], [phone] Lupus Anticoagulant Compon 0 - aPTT Coag (Bld) [Time] 37.3 s Normal 0.0-43.[address] [facility] Comment on above: Performed By: #### L 101.9900, L4500.0100, L3100.7050, L3100.8408, L3100.5440, L3100.7250, L3100.7325, L3100.5700, L3100.7335, L3100.5800, L3100.5600 ####[facility] [address] [place], [address] DILUTE PT (dPT) 48.9 sec High 0.0-47.6 [facility] Comment on above: Performed By: #### L 101.9900, L4500.0100, L3100.7050, L3100.8408, L3100.5440, L3100.7250, L3100.7325, L3100.5700, L3100.7335, L3100.5800, L3100.5600 ####[facility] [address] [place], [address] dPT Conf. Ratio 1.05 Ratio Normal 0.00-1.34 [facility] Comment on above: Performed By: #### L 101.9900, L4500.0100, L3100.7050, L3100.8408, L3100.5440, L3100.7250, L3100.7325, L3100.5700, L3100.7335, L3100.5800, L3100.5600 ####[facility] [address] [place], [address] DRVVT 40.6 sec Normal 0.0-47.0 [facility] Comment on above: Performed By: #### L 101.9900, L4500.0100, L3100.7050, L3100.8408, L3100.5440, L3100.7250, L3100.7325, L3100.5700, L3100.7335, L3100.5800, L3100.5600 ####[facility] [address] [place], [address] Interpretation Comment: Normal . [facility] Comment on above: Result Comment: No l upus anticoagulant was detected. The dPT was extended but the dPT confirmatory ratio was normal. This is consistent with a deficiency or specific inhibition of one or more extrinsic pathway factors (VII, X, V, II or fibrinogen). Performed By: #### L 101.9900, L4500.0100, L3100.7050, L3100.8408, L3100.5440, L3100.7250, L3100.7325, L3100.5700, L3100.7335, L3100.5800, L3100.5600 ####[facility] [address] [place], [place], [phone] THROMBIN TIME 17.4 sec Normal 0.0-23.0 [facility] Comment on above: Performed By: #### L 101.9900, L4500.0100, L3100.7050, L3100.8408, L3100.5440, L3100.7250, L3100.7325, L3100.5700, L3100.7335, L3100.5800, L3100.5600 ####[facility] [address] [place], [address] Protein C, Functionalon 10-11 PROTEIN C,FUNC 90 Normal 73-180 [facility] Comment on above: Result Comment: Perf ormed at: - [address] [id number] Roll Carrier: Sindhu Weaver MD, Phone: [phone] Performed at: - [facility] [id number] Roll Carrier: Kvng Branham PhD, Phone: [phone] Performed By: #### L 101.9900, L4500.0100, L3100.7050, L3100.8408, L3100.5440, L3100.7250, L3100.7325, L3100.5700, L3100.7335, L3100.5800, L3100.5600 ####[facility] [address] [place], [place], [phone] Protein S Antigenon 11-02-19 25 PROTEIN S, FREE 111 Normal 61-136 [facility] Comment on above: Performed By: #### L 101.9900, L4500.0100, L3100.7050, L3100.8408, L3100.5440, L3100.7250, L3100.7325, L3100.5700, L3100.7335, L3100.5800, L3100.5600 ####[facility] [address] [place], [address] PROTEIN S,TOTAL 89 Normal 60-150 [facility] Comment on above: Result Comment: This test was developed and its performance characteristics determined by [employer]. It has not been cleared or approved by the Food and Drug Administration. Performed By: #### L 101.9900, L4500.0100, L3100.7050, L3100.8408, L3100.5440, L3100.7250, L3100.7325, L3100.5700, L3100.7335, L3100.5800, L3100.5600 ####[facility] [address] [place], [address] Protein S, Functionalon 10-11 PROTEIN S, FUNC 98 Normal 63-140 [facility] Comment on above: Result Comment: Prot ein S activity may be falsely increased (masking an abnormal, low result) in patients receiving direct Xa inhibitor (e.g., rivaroxaban, apixaban, edoxaban) or a direct thrombin inhibitor (e.g., dabigatran) anticoagulant treatment due to assay interference by these drugs. Performed By: #### L 101.9900, L4500.0100, L3100.7050, L3100.8408, L3100.5440, L3100.7250, L3100.7325, L3100.5700, L3100.7335, L3100.5800, L3100.5600 ####[facility] [address] [place], [address] BASIC METABOLIC PANEL WITH A NION GAPon 10-31-2024 BUN/CREATININE RATIO SEE NOTE: Normal -22 [facility] Comment on above: Result Comment: Not Reported: BUN and Creatinine are within reference range. Performed By: #### 9 2498 #### [facility] of [address], [address] [place] [address] Green Plumber: Hubert Mayers MD Calcium [Mass/Vol] 10.0 mg/dL Normal 8.6-10.4 [facility] Comment on above: Performed By: #### 9 2498 #### [facility] of [address], [address] [place] [address] Green Plumber: Hubert Mayers MD Chloride [Moles/Vol] 100 mmol/L Normal 98-110 [facility] Comment on above: Performed By: #### 9 2498 #### [facility] of [address], [address] [place] [address] Green Plumber: Hubert Mayers MD CO2 [Moles/Vol] 28 mmol/L Normal 20-32 [facility] Comment on above: Performed By: #### 9 2498 #### [facility] of [address], [address] [place] [address] Green Plumber: Hubert Mayers MD Creatinine [Mass/Vol] 0.70 mg/dL Normal 0.50-1.[address] [facility] Comment on above: Performed By: #### 9 2498 #### [facility] of [address], [address] [place] [address] Green Plumber: Hubert Mayers MD ELECTROLYTE BALANCE 9 mmol/L (calc) Normal 7-17 [facility] Comment on above: Performed By: #### 9 2498 #### [facility] of [place] [address] Green Plumber: Hubert Mayers MD GFR/1.73 sq M.predicted among non-blacks MDRD (S/P/Bld) [Vol rate/Area] 98 mL/min/{1.73_m2} Normal > OR = 60 [facility] Comment on above: Performed By: #### 9 2498 #### [facility] of [place] [address] Green Plumber: Hubert Mayers MD Glucose [Mass/Vol] 80 mg/dL Normal 65-99 [facility] Comment on above: Result Comment: Fasting reference interval Performed By: #### 9 2498 #### [facility] [place] [address] Green Plumber: Hubert Mayers MD Potassium [Moles/Vol] 4.2 mmol/L Normal 3.5-5.3 [facility] Comment on above: Performed By: #### 9 2498 #### [facility] [place] [address] Green Plumber: Hubert Mayers MD Sodium [Moles/Vol] 137 mmol/L Normal 135-146 [facility] Comment on above: Performed By: #### 9 2498 #### [facility] [place] [address] Green Plumber: Hubert Mayers MD Urea nitrogen [Mass/Vol] 10 mg/dL Normal 7-25 [facility] Comment on above: Performed By: #### 9 2498 #### [facility] [place] [address] Green Plumber: Hubert Mayers MD Dilute Wei's viper venom timeOrdered By: Dorothy Echavarria on 10-29-2024 dRVVT Coag (PPP) [Time] 40.6 s 0.0-47.0 [facility] Erythrocyte Sed Rateon 10-29 SED RATE 10 mm/hr Normal 0-30 [facility] Comment on above: Performed By: #### L 101.9900, L4500.0100, L3100.7050, L3100.8408, L3100.5440, L3100.7250, L3100.7325, L3100.5700, L3100.7335, L3100.5800, L3100.5600 ####[facility] [address] [place], [place], [phone] Erythrocyte sedimentation ra teOrdered By: Dorothy Echavarria on 10-29-2024 ESR (Bld) [Velocity] 10 mm/h 0-30 [facility] Functional protein C measure mentOrdered By: Dorothy Echavarria on 10-29-2024 Protein C actual/normal Chromogenic method (PPP) [Rel catalytic activity/Vol] 90 % 73-180 [facility] Comment on above: Performed at: - [address] [id number] Director: Sindhu Weaver MD, Phone: [phone] at: - [facility] [address] [id number] Director: Kvng Branham PhD, Phone: [phone] MR/Deana 10-29-2024 MR/Brayan [facility] V[facility]. [address] [place], [place] [address] OFFICE VISIT Date of Service: 10/29/24 MR#: [id number] Acct: [id number] Name: SOCORRO GRACE Rep #: [id number] : 1965 Provider: HOLLI Ramey Age/Sex: 59/F Location[place] [facility] [place] [facility] [place] Status: Signed Intake Vital Signs 09/13/24 15:00 10/29/24 15:14 Height 5 ft 5.5 in Weight: 150 lb BP 125/84 H Blood Pressure Location Rt brachial Position Sitting Respiration 16 Pulse 78 Pulse Source Monitor Temp 97.8 F Temp Source Temporal Pulse Oximetry (%) 100 Oxygen Delivery Method room air Intake Visit Reasons: Concern of lack of circulation Chief Complaint: Is patient in pain?: No Allergies Penicillins Adverse Reaction (Intermediate, Verified 10/29/24 15:13) Rash Medications ???Medication ???Instructions ???Recorded ???Confirmed ???Type cholecalciferol (vitamin D3) 125 125 mcg PO DAILY 01/18/21 10/29/24 History mcg (5,000 unit) capsule multivitamin 1 tab PO DAILY 01/18/21 10/29/24 H istory cane #1 ea 03/22/21 10/29/24 Rx escitalopram oxalate 10 mg tablet 10 mg PO DAILY 05/14/22 10/29/24 History Compression stocking (10-20) #1 ea 12/02/23 10/29/24 Rx amantadine HCl 100 mg capsule 100 mg PO TID #90 caps 09/15/24 Rx cyclobenzaprine 10 mg tablet 10 mg PO .Nightly muscle spasm #60 09/15/24 10/29/24 Rx tabs gabapentin 400 mg capsule 400 mg PO TID #90 caps 09/15/24 Rx hydroxyzine HCl 10 mg tablet 10 mg PO BID Nausea/dizziness #60 09/15/24 10/29/24 Rx tabs magnesium oxide 400 mg PO DAILY #30 tabs 09/15/24 10/29/24 Rx orphenadrine citrate 100 mg 100 mg PO .Nightly muscle spasm 10/29/24 Rx tablet,extended release #30 tabs teriflunomide 14 mg tablet 14 mg PO DAILY #30 tabs 09/15/24 0 10/29/24 Rx (Aubagio) alendronate 70 mg tablet 70 mg PO QWEEK 10/29/24 10/29/24 H istory ascorbic acid (vitamin C) 500 mg mg PO 10/29/24 10/29/24 History capsule fluorometholone 0.1 % eye 1 drp ophthalmic (eye) BID 5 10/29/24 History drops,suspension mecobalamin (vitamin B12) 5,000 5,000 mcg PO Q OTHER DAY 10/29/24 10/29/24 History mcg chewable tablet propel PO QDAY 10/29/24 History trospium 20 mg tablet 20 mg PO BID 10/29/24 10/29/24 His tory Is last menstrual period known: No Post menopausal: Yes Patient : No Have you fallen in the past year?: Yes PFSH Medical History Hepatitis C Frequent headaches History of UTI History of back problems Arthritis Seasonal allergies Surgical History Hx of total hysterectomy Family History Mother Arthritis Father Colon cancer Diabetes Melanoma Daughter Kidney disease Sister Ovarian cancer Seizures Grandmother Parkinson disease Social History Smoking Status: Former smoker Tobacco: How many years used: 15 Electronic Cigarette Use: not used how long ago did patient quit smokin second hand exposure: No alcohol intake: current alcohol intake frequency: a few times a week Alcohol type: beer substance use type: former substance user Date of last use: used pot when she was a teenager HPI HPI HPI: SOCORRO GRACE, is a 59 F who presents to the office today with concern for poor circulation in her lower extremities. She has recently had venous reflux study 09/2024 which demonstrated prior R GSV ablation, L GSV ablation, and L ASV incompetence. Her medical history is significant for multiple sclerosis for which she follows with Dr. Duarte currently on Aubagio (teriflunomide). She reports she has had this regan-red discoloration on her bilateral thighs, left worse that right, for at least the last 6 months. It sometimes appears more apparent than others, looks worse with cold exposure but is present even in the absence of cold exposure. There is no associated pruritus, pain, swelling, excess warmth, or skin breakdown. No associated varicosities. She denies any routine heat exposure such as application heating pads in this area. She has been on the Aubagio for over a year now; no other new medications started recently. ROS General General: Yes fatigue; No weight change, appetite, colon cancer, breast cancer or weakness HEENT HEENT: No difficulty swallowing, eye injury, eye surgery, swollen glands or hoarseness Endo Endocrine: Yes heat intolerance and cold intolerance; No thyroid disease, diabetes mellitus, thyroid cancer or Hair loss Additional Details: LE swelling Skin Skin: No rash or changing moles Musc Musculoskeletal: No back problems, arthritis, rheumatoid arthrit (more content not included)... Normal [facility] Platelet poor plasma protein S actual/normal ratio (relative time)Ordered By: Dorothy Echavarria on 10-29-2024 Protein S actual/normal Coag (PPP) [Relative time] 98 % 63-140 [facility] Comment on above: Protein S activity m ay be falsely increased (masking anabnormal, low result) in patients receiving direct Xainhibitor (e.g., rivaroxaban, apixaban, edoxaban) or adirect thrombin inhibitor (e.g., dabigatran) anticoagulanttreatment due to assay interference by these drugs. Protein S measurement in anton telet poor plasma by coagulation assay (units/volume)Ordered By: Dorothy Echavarria on 10-29-2024 Protein S Coag Qn (PPP) 89 % 60-150 [facility] Comment on above: This test was develo ped and its performance characteristicsdetermined by [employer]. It has not been cleared orapproved by the Food and Drug Administration. Protein S, freeOrdered By: Yahaira Echavarria on 10-29-2024 Protein S Free Ag IA Qn (PPP) 111 % 61-136 [facility] Serum DNA double strand anti body assay (units/volume)Ordered By: Dorothy Echavarria on 10-29-2024 DNA double strand Ab Qn (S) 1 [IU]/mL 0-9 [facility] Comment on above: Negative <5 Equivoca l 5 - 9 Positive >9 Serum Scl-70 antibody assay (units/volume)Ordered By: Dorothy Echavarria on 10-29-2024 SCL-70 extractable nuclear Ab Qn (S) <0.2 AI 0.0-0.9 [facility] Comment on above: Previous reported re sult: TNP AIEdited by: DARA on 11/01/24:1409 AMENDED REPORT 11/01/24 1409 ANTISCLER previously reported as: Test not performed Serum cardiolipin IgG antibo dy assay by immunoassay (units/volume)Ordered By: Dorothy Echavarria on 10-29-2024 Cardiolipin IgG IA Qn (S) < 9 GPL U/mL 0-14 [facility] Comment on above: Negative: <15 Indete rminate: 15 - 20 Low-Med Positive: >20 - 80 High Positive: >80 Serum or plasma cardiolipin IgA antibody assay (units/volume)Ordered By: Dorothy Echavarria on 10-29-2024 Cardiolipin IgA Qn < 9 APL U/mL 0-11 [facility] Comment on above: Negative: <12 Indete rminate: 12 - 20 Low-Med Positive: >20 - 80 High Positive: >80 Serum or plasma complement C 4 measurement (mass/volume)Ordered By: Dorothy Echavarria on 10-29-2024 Complement C4 [Mass/Vol] 18 mg/dL 12-38 [facility] Thrombin timeOrdered By: Quoc Echavarria on 10-29-2024 Thrombin time Coag (PPP) [Time] 17.4 sec 0.0-23.0 [facility] Trileptal-Oxcarbazepineon OXCARBAZEPINE 2 ug/mL Low 10-35 [facility] Comment on above: Result Comment: This test was developed and its performance characteristics determined by [employer]. It has not been cleared or approved by the Food and Drug Administration. Detection Limit = 1 Performed at: [address] [id number] Roll Carrier: Sindhu Weaver MD, Phone: [phone] Performed By: #### L 500.2500, L100.0100, L3816.1700 ####[facility] [address] [place], [place], [id number] BASIC METABOLIC PANEL WITH A NION GAPon 09-30-2024 BUN/CREATININE RATIO SEE NOTE: Normal -22 [facility] Comment on above: Result Comment: Not Reported: BUN and Creatinine are within reference range. Performed By: #### 9 2498 #### [facility] [address], [address] [place], [place] [id number] Green Plumber: Hubert Mayers MD Calcium [Mass/Vol] 9.2 mg/dL Normal 8.6-10.4 [facility] Comment on above: Performed By: #### 9 2498 #### [facility] [address], [address] [place], [place] [id number] Green Plumber: Hubert Mayers MD Chloride [Moles/Vol] 96 mmol/L Low 98-110 [facility] Comment on above: Performed By: #### 9 2498 #### [facility] [address], [address] [place], [place] [address] Green Plumber: Hubert Mayers MD CO2 [Moles/Vol] 26 mmol/L Normal 20-32 [facility] Comment on above: Performed By: #### 9 2498 #### [facility] of [place] [address] Green Plumber: Hubert Mayers MD Creatinine [Mass/Vol] 0.54 mg/dL Normal 0.50-1.[address] [facility] Comment on above: Performed By: #### 9 2498 #### [facility] [place] [address] Green Plumber: Hubert Mayers MD ELECTROLYTE BALANCE 11 mmol/L (calc) Normal 7-17 [facility] Comment on above: Performed By: #### 9 2498 #### [facility] [place] [address] Green Plumber: Hubert Mayers MD GFR/1.73 sq M.predicted among non-blacks MDRD (S/P/Bld) [Vol rate/Area] 105 mL/min/{1.73_m2} Normal > OR = 60 [facility] Comment on above: Performed By: #### 9 2498 #### [facility] [place] [address] Green Plumber: Hubert Mayers MD Glucose [Mass/Vol] 92 mg/dL Normal 65-99 [facility] Comment on above: Result Comment: Fasting reference interval Performed By: #### 9 2498 #### [facility] [place] [address] Green Plumber: Hubert Mayers MD Potassium [Moles/Vol] 3.9 mmol/L Normal 3.5-5.[address] [facility] Comment on above: Performed By: #### 9 2498 #### [facility] [place] [address] Green Plumber: Hubert Mayers MD Sodium [Moles/Vol] 133 mmol/L Low 135-146 [facility] Comment on above: Performed By: #### 9 2498 #### [facility] [place] [id number] Green Plumber: Hubert Mayers MD Urea nitrogen [Mass/Vol] 13 mg/dL Normal 7-25 [facility] Comment on above: Performed By: #### 9 2498 #### [facility] [address], [address] [place] [address] Green Plumber: Hubert Mayers MD Venous duplex ultrasound rep ortOrdered By: Ed Mas on 09-28-2024 US Vein [facility] [address] [place] [address] Venous Duplex US - Brennen Extrem 09/27/24 1400 MR#: [id number] Acct: [id number] Name: SOCORRO GRACE Rep #:[id number] : 1965 58 From: Ed Rdz Attending Dr: Dr. Slade Duarte MD Status: REG CLI Ordering Dr: Slade Duarte MD Date: 09/27/24 Location: [facility] Sex: F C Admitted: Reason For Study Reason For Study: Hx of Varicose Veins RIGHT LEFT CFV is compressible, spontaneous, phasic, competent CFV is compressible, spontaneous, phasic, competent, and demonstrates normal augmentation. and demonstrates normal augmentation. FV is compressible, spontaneous, phasic, competent FV is compressible, spontaneous, phasic, competent and demonstrates normal augmentation. and demonstrates normal augmentation. POP V is compressible, spontaneous, phasic, competent POP V is compressible, spontaneous, phasic, competent and demonstrates normal augmentation. and demonstrates normal augmentation. T/P Trunk is compressible. T/P Trunk is compressible. PTV is compressible. PTV is compressible. RT PerV is compressible. LT PerV is compressible. SFJ is competent and measures 0.53 cm. SFJ is competent and measures 0.38 cm. Rt GSV not visualized s/p EVLA Lt GSV not visualized s/p EVLA Lt GSV visualized at distal calf is Competent and Lt GSV visualized at distal calf is Competent and measures 0.21cm x 0.23cm measures 0.12cm x 0.17cm Rt SSV too small to assess, 0.11cm x 0.10cm. Hypoechoic, non vascular structure noted Lt Pop Fossa Procedure measuring 0.76cm x 1.77cm. This is a venous duplex using B-mode, color flow and ASV proximal calf is INCOMPETENT for greater than 0.5 spectral Doppler. seconds and measures 0.21cm x 0.27 cm. Exam performed in department. SSV mid calf is competent and measures 0.13cm x 0.18 A preliminary report was called and/or faxed to Dr. cm. Duarte. VL/Venous Duplex US - Brennen Extrem Interpretation Summary Deep veins of the bilateral lower extremities are patent and compressible segmentally. There is no evidence of bilateral lower extremity deep vein thrombosis. The bilateral great saphenous veins appearpatent and compressible segmentally. Positive for reflux in the left accessory saphenous vein in the calf. Hypoechoic, non vascular structure noted left popliteal Ffssa measuring 0.76cm x1.77cm. Ordering Physician: Slade Duarte Referring Physician: Laisha Javier Performed By: Estefania Varghese, ARI, RVT 09/28/24 0750 Date _ Ed Mas MD CC: SENIOR TABLEAU DEVELOPER-Azul Javier; Dr. Slade Duarte MD ~ Date Dictated: 09/27/24 1400 Date Transcribed: 09/28/24 0750 Station Captain: Signed [facility] Work Phone: Absolute lymphocyte countOrd ered By: Slade Duarte on 09-27-2024 Lymphocytes Auto (Unsp spec) [#/Vol] 1.23 10*3/uL 0.83-4.51 [facility] Absolute neutrophil countOrd ered By: Slade Duarte on 09-27-2024 Neutrophils (Bld) [#/Vol] 3.6 10*3/uL 2.0-7.7 [facility] Anion gap in Serum or Plasma Ordered By: Slade Duarte on 09-27-2024 Anion gap [Moles/Vol] 11 mmol/L 09-23 [facility] Automated lymphocyte count a s percentage of total leukocytesOrdered By: Slade Duarte on 09-27-2024 Lymphocytes/100 WBC Auto (Unsp spec) 20.9 % [facility] BUN/creatinine ratioOrdered By: Slade Duarte on 09-27-2024 Urea nitrogen/Creatinine [Mass ratio] 19.1 mg/mg 02-28 [facility] Basic Metabolic Profile (BMP )on 09-27-2024 BUN/CRE 19.1 RATIO Normal 02-28 [facility] Comment on above: Performed By: #### L 500.2500, L100.0100, L3800.1700 ####[facility] [address] [place], [address] Calcium [Mass/Vol] 9.8 mg/dL Normal 7.6-11.0 [facility] Comment on above: Performed By: #### L 500.2500, L100.0100, L3800.1700 ####[facility] [address] [place], [address] Chloride [Moles/Vol] 98 mmol/L Normal 98-108 [facility] Comment on above: Performed By: #### L 500.2500, L100.0100, L3800.1700 ####[facility] [address] [place], [address] CO2 [Moles/Vol] 26.9 mmol/L Normal 21.0-32.0 [facility] Comment on above: Performed By: #### L 500.2500, L100.0100, L3800.1700 ####[facility] [address] [place], [address] Creatinine [Mass/Vol] 0.60 mg/dL Low 0.70-1.20 [facility] Comment on above: Performed By: #### L 500.2500, L100.0100, L3800.1700 ####[facility] [address] [place], [address] GAP 11 Normal 5-15 [facility] Comment on above: Performed By: #### L 500.2500, L100.0100, L3800.1700 ####[facility] [address] [place], [address] GFR/1.73 sq M.predicted among non-blacks MDRD (S/P/Bld) [Vol rate/Area] 103 mL/min/{1.73_m2} Normal >60 [facility] Comment on above: Result Comment: mL/m in/1.73m2 CKD-EPI Creatinine Equation (2020) Performed By: #### L 500.2500, L100.0100, L3800.1700 ####[facility] [address] [place], [address] Glucose [Mass/Vol] 74 mg/dL Normal 70-99 [facility] Comment on above: Performed By: #### L 500.2500, L100.0100, L3800.1700 ####[facility] [address] [place], [address] Potassium [Moles/Vol] 4.1 mmol/L Normal 3.3-5.1 [facility] Comment on above: Performed By: #### L 500.2500, L100.0100, L3800.1700 ####[facility] [address] [place], [address] Sodium [Moles/Vol] 136 mmol/L Normal 133-145 [facility] Comment on above: Performed By: #### L 500.2500, L100.0100, L3800.1700 ####[facility] [address] [place], [address] Urea nitrogen [Mass/Vol] 12 mg/dL Normal 4-19 [facility] Comment on above: Performed By: #### L 500.2500, L100.0100, L3800.1700 ####[facility] [address] [place], [address] Basophil percentageOrdered B y: lSade Duarte on 09-27-2024 Basophils/100 WBC (Bld) 0.7 % 0-1 [facility] CBC W/Diff, Automatedon 09-09 Absolute Lymph 1.23 X10 3/uL Normal 0.83-4.51 [facility] Comment on above: Performed By: #### L 500.2500, L100.0100, L3800.1700 ####[facility] [address] [place], [address] Absolute Neut 3.6 X10 3/uL Normal 2.0-7.7 [facility] Comment on above: Performed By: #### L 500.2500, L100.0100, L3800.1700 ####[facility] [address] [place], [address] Basophils/100 WBC (Bld) 0.7 % Normal 0-1 [facility] Comment on above: Performed By: #### L 500.2500, L100.0100, L3800.1700 ####[facility] [address] [place], [address] Eosinophils/100 WBC (Bld) 2.5 % Normal 0-5 [facility] Comment on above: Performed By: #### L 500.2500, L100.0100, L3800.1700 ####[facility] [address] [place], [address] Erythrocyte distribution width (RBC) [Ratio] 12.8 % Normal 11.6-14.6 [facility] Comment on above: Performed By: #### L 500.2500, L100.0100, L3800.1700 ####[facility] [address] [place], [address] Hematocrit (Bld) [Volume fraction] 40.8 % Normal 37-47 [facility] Comment on above: Performed By: #### L 500.2500, L100.0100, L3800.1700 ####[facility] [address] [place], [address] Hemoglobin (Bld) [Mass/Vol] 13.8 g/dL Normal 12.0-15.0 [facility] Comment on above: Performed By: #### L 500.2500, L100.0100, L3800.1700 ####[facility] [address] [place], [address] IG% 0.700 Normal 0.0-0.9 [facility] Comment on above: Result Comment: IG% - Immature Granulocytes (promyelocytes, myelocytes and metamyelocytes) > 1% indicates that a LEFT SHIFT is Present. Performed By: #### L 500.2500, L100.0100, L3800.1700 ####[facility] [address] [place], [address] Lymphocytes/100 WBC (Bld) 20.9 % Normal 19-41 [facility] Comment on above: Performed By: #### L 500.2500, L100.0100, L3800.1700 ####[facility] [address] [place], [address] MCH (RBC) [Entitic mass] 28.6 pg Normal 27.0-32.0 [facility] Comment on above: Performed By: #### L 500.2500, L100.0100, L3800.1700 ####[facility] [address] [place], [address] MCHC (RBC) [Mass/Vol] 33.8 g/dL Normal 32-36 [facility] Comment on above: Performed By: #### L 500.2500, L100.0100, L3800.1700 ####[facility] [address] [place], [address] MCV (RBC) [Entitic vol] 84.5 fL Normal 81-99 [facility] Comment on above: Performed By: #### L 500.2500, L100.0100, L3800.1700 ####[facility] [address] [place], [address] Monocytes/100 WBC (Bld) 13.4 % High 0-10 [facility] Comment on above: Performed By: #### L 500.2500, L100.0100, L3800.1700 ####[facility] [address] [place], [address] Neutrophils/100 WBC (Bld) 61.8 % Normal 47-70 [facility] Comment on above: Performed By: #### L 500.2500, L100.0100, L3800.1700 ####[facility] [address] [place], [address] Nucleated RBC (Bld) [#/Vol] 0 10*3/uL Normal 0-5 [facility] Comment on above: Performed By: #### L 500.2500, L100.0100, L3800.1700 ####[facility] [address] [place], [address] Platelet mean volume (Bld) [Entitic vol] 8.6 fL Normal 6.2-12.0 [facility] Comment on above: Performed By: #### L 500.2500, L100.0100, L3800.1700 ####[facility] [address] [place], [address] Platelets (Bld) [#/Vol] 256 10*3/uL Normal 150-450 [facility] Comment on above: Performed By: #### L 500.2500, L100.0100, L3800.1700 ####[facility] [address] [place], [address] RBC (Bld) [#/Vol] 4.83 10*6/uL Normal 4.2-5.4 [facility] Comment on above: Performed By: #### L 500.2500, L100.0100, L3800.1700 ####[facility] [address] [place], [address] RDW SD 39.3 fl Normal 35.1-43.9 [facility] Comment on above: Performed By: #### L 500.2500, L100.0100, L3800.1700 ####[facility] [address] [place], [address] WBC (Bld) [#/Vol] 5.9 10*3/uL Normal 4.4-11.0 [facility] Comment on above: Performed By: #### L 500.2500, L100.0100, L3800.1700 ####[facility] [address] [place], [address] Carbon dioxide, total [Moles /volume] in Central venous bloodOrdered By: Slade Duarte on 09-27-2024 CO2 [Moles/Vol] 26.9 mmol/L 21.0-32.0 [facility] Chloride assayOrdered By: Ra jessica Duarte on 09-27-2024 Chloride [Moles/Vol] 98 mmol/L 98-108 [facility] Eosinophil percentageOrdered By: Slade Duarte on 09-27-2024 Eosinophils/100 WBC (Bld) 2.5 % 0-5 [facility] Erythrocyte distribution wid th ratioOrdered By: Slade Duarte on 09-27-2024 Erythrocyte distribution width (RBC) [Ratio] 12.8 % 11.6-14.6 [facility] Erythrocyte distribution wid th standard deviationOrdered By: Slade Duarte on 09-27-2024 Erythrocyte distribution width (RBC) [Ratio] 39.3 fl 35.1-43.9 [facility] Glomerular filtration rate ( GFR) estimation/1.73 sq m using serum, plasma, or whole bOrdered By: Slade Duarte on 09-27-2024 GFR/1.73 sq M.predicted among non-blacks MDRD (S/P/Bld) [Vol rate/Area] 103 mL/min/{1.73_m2} >60 [facility] Comment on above: mL/min/1.73m2 CKD-EP I Creatinine Equation (2020) Hematocrit Auto (Bld) [Volum e fraction]Ordered By: Slade Duarte on 09-27-2024 Hematocrit (Bld) [Volume fraction] 40.8 % 37-47 [facility] Hemoglobin measurementOrdere d By: Slade Duarte on 09-27-2024 Hemoglobin (Bld) [Mass/Vol] 13.8 g/dL 12.0-15.0 [facility] Immature granulocytes/100 WB C Auto (Bld)Ordered By: Slade Duarte on 09-27-2024 Immature granulocytes/100 WBC (Bld) 0.700 % 0.0-0.9 [facility] Comment on above: IG% - Immature Granu locytes (promyelocytes, myelocytes and metamyelocytes) > 1% indicates that a LEFT SHIFT is Present. MCV (mean corpuscular volume ) determinationOrdered By: Slade Duarte on 09-27-2024 MCV (RBC) [Entitic vol] 84.5 fL 81-99 [facility] Mean corpuscular hemoglobin (MCH) determinationOrdered By: Slade Duarte on 09-27-2024 MCH (RBC) [Entitic mass] 28.6 pg 27.0-32.0 [facility] Mean corpuscular hemoglobin concentration (MCHC) determinationOrdered By: Slade Duarte 09-27-2024 MCHC (RBC) [Mass/Vol] 33.8 g/dL 32-36 [facility] Mean platelet volume determi nationOrdered By: Slade Duarte on 09-27-2024 Platelet mean volume (Bld) [Entitic vol] 8.6 fL 6.2-12.0 [facility] Monocyte percentageOrdered B y: Slade Duarte on 09-27-2024 Monocytes/100 WBC (Bld) 13.4 % High 0-10 [facility] Neutrophil percentageOrdered By: Slade Gerald on 09-27-2024 Neutrophils/100 WBC (Bld) 61.8 % 47-70 [facility] Nucleated red blood cell per centageOrdered By: Sladekevin Duarte on 09-27-2024 Nucleated RBC/100 WBC (Bld) [Ratio] 0 % 0-5 [facility] Platelet countOrdered By: Ra jessica Duarte on 09-27-2024 Platelets (Bld) [#/Vol] 256 10*3/uL 150-450 [facility] Potassium measurement (mass/ volume)Ordered By: Slade Duarte on 09-27-2024 Potassium (Unsp spec) [Mass/Vol] 4.1 mmol/L 3.3-5.1 [facility] RBC Auto (Bld) [#/Vol]Ordere d By: Slade Duarte on 09-27-2024 RBC (Bld) [#/Vol] 4.83 10*6/uL 4.2-5.4 [facility] Serum creatinine measurement (mass/volume)Ordered By: Slade Duarte on 09-27-2024 Creatinine [Mass/Vol] 0.60 mg/dL Low 0.70-1.20 [facility] Serum glucose measurement (m ass/volume)Ordered By: Slade Duarte on 09-27-2024 Glucose [Mass/Vol] 74 mg/dL 70-99 [facility] Serum or plasma calcium rigoberto urement (mass/volume)Ordered By: Slade Duarte on 09-27-2024 Calcium [Mass/Vol] 9.8 mg/dL 7.6-11.0 [facility] Serum or plasma oxcarbazepin e measurement (mass/volume)Ordered By: Slade Duarte on 09-27-2024 OXcarbazepine [Mass/Vol] 2 ug/mL Low 10-35 [facility] Comment on above: This test was develo ped and its performance characteristicsdetermined by [employer]. It has not been cleared orapproved by the Food and Drug Administration. Detection Limit = 1Performed at: - [facility] [address] [place], [place] [id number] Director: Sindhu Weaver MD, Phone: [phone] Serum or plasma urea nitroge n measurement (mass/volume)Ordered By: Slade Duarte on 09-27-2024 Urea nitrogen [Mass/Vol] 12 mg/dL 08-28 [facility] Sodium levelOrdered By: Ash Duarte on 09-27-2024 Sodium [Moles/Vol] 136 mmol/L 133-145 [facility] Venous Duplex US - Brennen Extre mon 09-27-2024 Venous Duplex US - Brennen Extrem [facility] [address] [place] [address] Venous Duplex US - Brennen Extrem 09/27/24 1400 MR#: [id number] Acct: [id number] Name: SOCORRO GRACE Rep #: [id number] : 1965 58 From: Ed Mas MD Attending Dr: Dr. Slade Duarte MD Status: R EG CLI Ordering Dr: Slade Duarte MD Date: 09/27/24 Location: [facility] Sex: F C Admitted: Reason For Study Reason For Study: Hx of Varicose Veins RIGHT LEFT CFV is compressible, spontaneous, phasic, competent CFV is compressible, spontaneous, phasic, competent, and demonstrates normal augmentation. and demonstrates normal augmentation. FV is compressible, spontaneous, phasic, competent FV is compressible, spontaneous, phasic, competent and demonstrates normal augmentation. and demonstrates normal augmentation. POP V is compressible, spontaneous, phasic, competent POP V is compressible, spontaneous, phasic, competent and demonstrates normal augmentation. and demonstrates normal augmentation. T/P Trunk is compressible. T/P Trunk is compressible. PTV is compressible. PTV is compressible. RT PerV is compressible. LT PerV is compressible. SFJ is competent and measures 0.53 cm. SFJ is competent and measures 0.38 cm. Rt GSV not visualized s/p EVLA Lt GSV not visualized s/p EVLA Lt GSV visualized at distal calf is Competent and Lt GSV visualized at distal calf is Competent and measures 0.21cm x 0.23cm measures 0.12cm x 0.17cm Rt SSV too small to assess, 0.11cm x 0.10cm. Hypoechoic, non vascular structure noted Lt Pop Fossa Procedure measuring 0.76cm x 1.77cm. This is a venous duplex using B-mode, color flow and ASV proximal calf is INCOMPETENT for greater than 0.5 spectral Doppler. seconds and measures 0.21cm x 0.27 cm. Exam performed in department. SSV mid calf is competent and measures 0.13cm x 0.18 A preliminary report was called and/or faxed to Dr. cm. Duarte. VL/Venous Duplex US - Brennen Extrem Interpretation Summary Deep veins of the bilateral lower extremities are patent and compressible segmentally. There is no evidence of bilateral lower extremity deep vein thrombosis. The bilateral great saphenous veins appear patent and compressible segmentally. Positive for reflux in the left accessory saphenous vein in the calf. Hypoechoic, non vascular structure noted left popliteal Ffssa measuring 0.76cm x 1.77cm. Ordering Physician: Slade Duarte Referring Physician: Laisha Javier Performed By: Estefania Varghese, ARI, RVT 09/28/24 0750 Date Ed Mas MD CC: FRANCI Javier; Dr. Slade Duarte MD Date Dictated: 09/27/24 1400 Date Transcribed: 09/28/24 075 Station Captain: Signed Normal [facility] White blood cell (WBC) count Ordered By: Slade Duarte on 09-27-2024 WBC (Bld) [#/Vol] 5.9 10*3/uL 4.4-11.0 [facility] Trileptal-Oxcarbazepineon OXCARBAZEPINE 6 ug/mL Low 10-35 [facility] Comment on above: Result Comment: This test was developed and its performance characteristics determined by [employer]. It has not been cleared or approved by the Food and Drug Administration. Detection Limit = 1 Performed at: [address] [id number] Roll Carrier: Sindhu Weaver MD, Phone: [phone] Performed By: #### L 3800.1700, L500.4050, L100.0100 #### [facility] [address] [place], [place], [id number] Absolute lymphocyte countOrd ered By: Slade Duarte on 09-13-2024 Lymphocytes Auto (Unsp spec) [#/Vol] 1.16 10*3/uL 0.83-4.51 [facility] Absolute neutrophil countOrd ered By: Slade Duarte on 09-13-2024 Neutrophils (Bld) [#/Vol] 3.8 10*3/uL 2.0-7.7 [facility] Anion gap in Serum or Plasma Ordered By: Slade Duarte on 09-13-2024 Anion gap [Moles/Vol] 50 mmol/L High 5-15 [facility] Automated lymphocyte count a s percentage of total leukocytesOrdered By: Slade Duarte on 09-13-2024 Lymphocytes/100 WBC Auto (Unsp spec) 19.0 % 19-41 [facility] BUN/creatinine ratioOrdered By: Sladekevin Duarte on 09-13-2024 Urea nitrogen/Creatinine [Mass ratio] 23.8 mg/mg High 10-20 [facility] Basophil percentageOrdered B y: Slade Duarte on 09-13-2024 Basophils/100 WBC (Bld) 1.0 % 0-1 [facility] Bilirubin, totalOrdered By: Slade Duarte on 09-13-2024 Bilirubin [Mass/Vol] mg/dL 0.00-1.30 [facility] CBC W/Diff, Automatedon Absolute Lymph 1.16 X10 3/uL Normal 0.83-4.51 [facility] Comment on above: Performed By: #### L 3800.1700, L500.4050, L100.0100 #### [facility] [address] [place], [address] Absolute Neut 3.8 X10 3/uL Normal 2.0-7.7 [facility] Comment on above: Performed By: #### L 3800.1700, L500.4050, L100.0100 #### [facility] [address] [place], [address] Basophils/100 WBC (Bld) 1.0 % Normal 0-1 [facility] Comment on above: Performed By: #### L 3800.1700, L500.4050, L100.0100 #### [facility] [address] [place], [address] Eosinophils/100 WBC (Bld) 2.8 % Normal 0-5 [facility] Comment on above: Performed By: #### L 3800.1700, L500.4050, L100.0100 #### [facility] [address] [place], [address] Erythrocyte distribution width (RBC) [Ratio] 12.7 % Normal 11.6-14.6 [facility] Comment on above: Performed By: #### L 3800.1700, L500.4050, L100.0100 #### [facility] [address] [place], [address] Hematocrit (Bld) [Volume fraction] 37.0 % Normal 37-47 [facility] Comment on above: Performed By: #### L 3800.1700, L500.4050, L100.0100 #### [facility] [address] [place], [address] Hemoglobin (Bld) [Mass/Vol] 13.0 g/dL Normal 12.0-15.0 [facility] Comment on above: Performed By: #### L 3800.1700, L500.4050, L100.0100 #### [facility] [address] [place], [address] IG% 0.700 Normal 0.0-0.9 [facility] Comment on above: Result Comment: IG% - Immature Granulocytes (promyelocytes, myelocytes and metamyelocytes) > 1% indicates that a LEFT SHIFT is Present. Performed By: #### L 3800.1700, L500.4050, L100.0100 #### [facility] [address] [place], [address] Lymphocytes/100 WBC (Bld) 19.0 % Normal 19-41 [facility] Comment on above: Performed By: #### L 3800.1700, L500.4050, L100.0100 #### [facility] [address] [place], [address] MCH (RBC) [Entitic mass] 29.1 pg Normal 27.0-32.0 [facility] Comment on above: Performed By: #### L 3800.1700, L500.4050, L100.0100 #### [facility] [address] [place], [address] MCHC (RBC) [Mass/Vol] 35.1 g/dL Normal 32-36 [facility] Comment on above: Performed By: #### L 3800.1700, L500.4050, L100.0100 #### [facility] [address] [place], [address] MCV (RBC) [Entitic vol] 83.0 fL Normal 81-99 [facility] Comment on above: Performed By: #### L 3800.1700, L500.4050, L100.0100 #### [facility] [address] [place], [address] Monocytes/100 WBC (Bld) 14.9 % High 0-10 [facility] Comment on above: Performed By: #### L 3800.1700, L500.4050, L100.0100 #### [facility] [address] [place], [address] Neutrophils/100 WBC (Bld) 61.6 % Normal 47-70 [facility] Comment on above: Performed By: #### L 3800.1700, L500.4050, L100.0100 #### [facility] [address] [place], [address] Nucleated RBC (Bld) [#/Vol] 0 10*3/uL Normal 0-5 [facility] Comment on above: Performed By: #### L 3800.1700, L500.4050, L100.0100 #### [facility] [address] [place], [address] Platelet mean volume (Bld) [Entitic vol] 8.5 fL Normal 6.2-12.0 [facility] Comment on above: Performed By: #### L 3800.1700, L500.4050, L100.0100 #### [facility] [address] [place], [address] Platelets (Bld) [#/Vol] 280 10*3/uL Normal 150-450 [facility] Comment on above: Performed By: #### L 3800.1700, L500.4050, L100.0100 #### [facility] [address] [place], [address] RBC (Bld) [#/Vol] 4.46 10*6/uL Normal 4.2-5.4 [facility] Comment on above: Performed By: #### L 3800.1700, L500.4050, L100.0100 #### [facility] [address] [place], [address] RDW SD 38.5 fl Normal 35.1-43.9 [facility] Comment on above: Performed By: #### L 3800.1700, L500.4050, L100.0100 #### [facility] [address] [place], [address] WBC (Bld) [#/Vol] 6.1 10*3/uL Normal 4.4-11.0 [facility] Comment on above: Performed By: #### L 3800.1700, L500.4050, L100.0100 #### [facility] [address] [place], [address] Carbon dioxide, total [Moles /volume] in Central venous bloodOrdered By: Slade Duarte on 09-13-2024 CO2 [Moles/Vol] 22.4 mmol/L 21.0-32.0 [facility] Chloride assayOrdered By: Ra jessica Duarte on 09-13-2024 Chloride [Moles/Vol] 80 mmol/L Low 98-108 [facility] Comprehensive Metabolic Prof ilon 09-13-2024 Albumin [Mass/Vol] 4.3 g/dL Normal 3.4-4.8 [facility] Comment on above: Performed By: #### L 3800.1700, L500.4050, L100.0100 #### [facility] [address] [place], [address] Albumin/Globulin [Mass ratio] 1.6 {ratio} Normal 0.9-2.4 [facility] Comment on above: Performed By: #### L 3800.1700, L500.4050, L100.0100 #### [facility] [address] [place], [address] ALK PHOS 117 U/L High 35-104 [facility] Comment on above: Performed By: #### L 3800.1700, L500.4050, L100.0100 #### [facility] [address] [place], [address] ALT [Catalytic activity/Vol] 29 U/L Normal <=34 [facility] Comment on above: Performed By: #### L 3800.1700, L500.4050, L100.0100 #### [facility] [address] [place], [address] AST [Catalytic activity/Vol] 21 U/L Normal <=31 [facility] Comment on above: Performed By: #### L 3800.1700, L500.4050, L100.0100 #### [facility] [address] [place], [address] BUN/CRE 23.8 RATIO High 10-20 [facility] Comment on above: Performed By: #### L 3800.1700, L500.4050, L100.0100 #### [facility] [address] [place], [address] Calcium [Mass/Vol] 9.3 mg/dL Normal 7.6-11.0 [facility] Comment on above: Performed By: #### L 3800.1700, L500.4050, L100.0100 #### [facility] [address] [place], [address] Chloride [Moles/Vol] 80 mmol/L Low 98-108 [facility] Comment on above: Performed By: #### L 3800.1700, L500.4050, L100.0100 #### [facility] [address] [place], [address] CO2 [Moles/Vol] 22.4 mmol/L Normal 21.0-32.0 [facility] Comment on above: Performed By: #### L 3800.1700, L500.4050, L100.0100 #### [facility] [address] [place], [address] Creatinine [Mass/Vol] 0.51 mg/dL Low 0.70-1.20 [facility] Comment on above: Performed By: #### L 3800.1700, L500.4050, L100.0100 #### [facility] [address] [place], [address] GAP 50 High 5-15 [facility] Comment on above: Performed By: #### L 3800.1700, L500.4050, L100.0100 #### [facility] [address] [place], [address] GFR/1.73 sq M.predicted among non-blacks MDRD (S/P/Bld) [Vol rate/Area] 107 mL/min/{1.73_m2} Normal >60 [facility] Comment on above: Result Comment: mL/m in/1.73m2 CKD-EPI Creatinine Equation (2020) Performed By: #### L 3800.1700, L500.4050, L100.0100 #### [facility] [address] [place], [address] Globulin (S) [Mass/Vol] 2.7 g/dL Normal 2.2-4.2 [facility] Comment on above: Performed By: #### L 3800.1700, L500.4050, L100.0100 #### [facility] [address] [place], [address] Glucose [Mass/Vol] 100 mg/dL High 70-99 [facility] Comment on above: Performed By: #### L 3800.1700, L500.4050, L100.0100 #### [facility] [address] [place], [address] Potassium [Moles/Vol] 4.5 mmol/L Normal 3.3-5.1 [facility] Comment on above: Performed By: #### L 3800.1700, L500.4050, L100.0100 #### [facility] [address] [place], [address] Sodium [Moles/Vol] 152 mmol/L High 133-145 [facility] Comment on above: Performed By: #### L 3800.1700, L500.4050, L100.0100 #### [facility] [address] [place], [address] T BILI < 0.15 Normal 0.00-1.30 [facility] Comment on above: Performed By: #### L 3800.1700, L500.4050, L100.0100 #### [facility] [address] [place], [address] T PROT 7.0 g/dL Normal 5.9-8.4 [facility] Comment on above: Performed By: #### L 3800.1700, L500.4050, L100.0100 #### [facility] [address] [place], [address] Urea nitrogen [Mass/Vol] 12 mg/dL Normal 4-19 [facility] Comment on above: Performed By: #### L 3800.1700, L500.4050, L100.0100 #### [facility] [address] [place], [address] Eosinophil percentageOrdered By: Slade Duarte on 09-13-2024 Eosinophils/100 WBC (Bld) 2.8 % 0-5 [facility] Erythrocyte distribution wid th ratioOrdered By: Slade Duarte on 09-13-2024 Erythrocyte distribution width (RBC) [Ratio] 12.7 % 11.6-14.6 [facility] Erythrocyte distribution wid th standard deviationOrdered By: Slade Duarte on 09-13-2024 Erythrocyte distribution width (RBC) [Ratio] 38.5 fl 35.1-43.9 [facility] Glomerular filtration rate ( GFR) estimation/1.73 sq m using serum, plasma, or whole bOrdered By: Slade Duarte on 09-13-2024 GFR/1.73 sq M.predicted among non-blacks MDRD (S/P/Bld) [Vol rate/Area] 107 mL/min/{1.73_m2} >60 [facility] Comment on above: mL/min/1.73m2 CKD-EP I Creatinine Equation (2020) Hematocrit Auto (Bld) [Volum e fraction]Ordered By: Slade Duarte on 09-13-2024 Hematocrit (Bld) [Volume fraction] 37.0 % 37-47 [facility] Hemoglobin measurementOrdere d By: Slade Duarte on 09-13-2024 Hemoglobin (Bld) [Mass/Vol] 13.0 g/dL 12.0-15.0 [facility] Immature granulocytes/100 WB C Auto (Bld)Ordered By: Slade Duarte 09-13-2024 Immature granulocytes/100 WBC (Bld) 0.700 % 0.0-0.9 [facility] Comment on above: IG% - Immature Granu locytes (promyelocytes, myelocytes and metamyelocytes) > 1% indicates that a LEFT SHIFT is Present. Laboratory - Chemistry and C hemistry - challengeOrdered By: Slade Duarte on 09-13-2024 AST [Catalytic activity/Vol] 21 U/L <32 [facility] MCV (mean corpuscular volume ) determinationOrdered By: Slade Duarte 09-13-2024 MCV (RBC) [Entitic vol] 83.0 fL 81-99 [facility] Mean corpuscular hemoglobin (MCH) determinationOrdered By: Slade Duarte 09-13-2024 MCH (RBC) [Entitic mass] 29.1 pg 27.0-32.0 [facility] Mean corpuscular hemoglobin concentration (MCHC) determinationOrdered By: Slade Duarte 09-13-2024 MCHC (RBC) [Mass/Vol] 35.1 g/dL 32-36 [facility] Mean platelet volume determi nationOrdered By: Slade Duarte on 09-13-2024 Platelet mean volume (Bld) [Entitic vol] 8.5 fL 6.2-12.0 [facility] Monocyte percentageOrdered B y: Slade Duarte on 09-13-2024 Monocytes/100 WBC (Bld) 14.9 % High 0-10 [facility] Neurology Visit Reporton Neurology Visit Report [facility] [address], [address] [place] [address] OFFICE VISIT Date of Service: 09/13/24 MR#: [id number] Acct: [id number] Name: SOCORRO GRACE Rep #: [id number] : 1965 Provider: Dr. Slade lugo MD Age/Sex: 58/F Location[place] [facility] [place] [facility] [place] Status: Signed with Addenda ADDENDUM by Dr. Slade Duarte MD on 10/27/24 at 1708 Addendum Addendum (10/27/2024): The patient will be discontinuing oxcarbazepine and will try a topical gofo-buy-afbmwat ointment (DMSO cream) for her trigeminal neuralgia pain. 10/27/24 1708 Date Slade Duarte MD cc: * Signed ADDENDUM by Dr. Slade Duarte MD on 09/15/24 at 1752 Addendum Addendum (09/15/2024): BMP (08/27/2024): Sodium 129 (low) CBC, CMP (09/13/2024): Sodium 152 (high), BUN/creatinine ratio 23.8 (high), glucose 100 (high) A BMP will be checked in 2 months to reassess her serum sodium. The patient takes a daily multivitamin and also takes vitamin B12 3000 mcg orally 3 times per week. 09/15/24 175 Date Slade Duarte MD cc: * Signed HPI HPI Chief Complaint: Details: Interim History: Socorro returns for follow-up visit. She has a history of anxiety, hypercholesterolemia, vitamin D deficiency and multiple sclerosis. She was diagnosed with multiple sclerosis in 2006 when she presented with cognitive impairment, left-sided weakness, leg spasms, fatigue, and diplopia. Based on MRI findings and her clinical examination, she was diagnosed with multiple sclerosis in 2006 and was started on Avonex. She had flulike symptoms as a side effect to Avonex. She was then switched to Copaxone, then to Gilenya and then to Tecfidera (she also took the generic form, dimethyl fumarate). In February 2021, she was switched from dimethyl fumarate to Vumerity. She did not had symptomatic side effects to Vumerity however her absolute lymphocyte count was low despite reducing her dose of Vumerity to 231 mg daily. She was subsequently switched from Vumerity to Aubagio in 2021 and has tolerated this well and her last absolute lymphocyte count in November 2023 was normal. Over the 5 years prior to 2006, she had had intermittent symptoms that included numbness and tingling in the extremities. Since 2006, she has had fluctuating and/or intermittent symptoms that have included diplopia (individual episodes would be pronounced for about 1 day each). She has gait imbalance; this worsened further since 2020. She has urinary frequency and urgency and has had periods of urinary incontinence; she takes trospium. In 2021, she began having occasional bowel incontinence. She has disequilibrium that has fluctuated in severity. Hydroxyzine has been of benefit for her disequilibrium. She has chronic fatigue. She does not have a history of visual field deficits but has had chronic impaired visual acuity (her bilateral eye blurred vision fluctuates). Stable bilateral optic pallor (left greater than right, consistent with prior optic neuritis), trace bilateral macular thickening/edema and dry eyes were noted on ophthalmology evaluation on 03/25/22. She has left-sided weakness and that has fluctuated and had overall worsened. She has increased tone in the left lower extremity and left upper extremity and has a moderate though fluctuating left foot drop with left calf contracture and hypertonic curling of the toes of the left foot and contracture of the left arm at the elbow. She uses a left AFO. Orphenadrine and cyclobenzaprine are of modest benefit for her left-sided hypertonia. She ambulates independently though her gait is unsteady. She reported that the occurrences of diplopia/skewed vision impede her ability to ambulate. She has prism glasses. Physical therapy and occupational therapy were of some benefit. In 2023, she developed left-sided facial pain in a V3 distribution consistent with a left trigeminal neuralgia. Oxcarbazepine 150 mg twice daily was initiated and she has had reduction in the severity and frequency of her facial pain though it continues to occur about twice per day. Eating is a trigger for her left trigeminal neuralgia pain. Her dose of oxcarbazepine was then increased to 300 mg twice daily in May 2024 and she has had resolution of her trigeminal neuralgia. However, she developed a side effect of hyponatremia for which she was hospitalized in August 2024 (laboratory studies from that hospitalization are presently not available). She otherwise has not had worsening of her multiple sclerosis symptoms over recent months. She has chronic low back pain. She did not feel the need to take any medication for her chronic low back pain. Chiropractic therapy has been of benefit. She has had left-sided arm and leg vague pain for which gabapentin is of benefit. Baclofen was not a sustai (more content not included)... Normal [facility] Neutrophil percentageOrdered By: Slade Duarte on 09-13-2024 Neutrophils/100 WBC (Bld) 61.6 % 47-70 [facility] Nucleated red blood cell per centageOrdered By: Slade Duarte on 09-13-2024 Nucleated RBC/100 WBC (Bld) [Ratio] 0 % 0-5 [facility] Platelet countOrdered By: Ra jessica Duarte on 09-13-2024 Platelets (Bld) [#/Vol] 280 10*3/uL 150-450 [facility] Potassium measurement (mass/ volume)Ordered By: Slade Duarte on 09-13-2024 Potassium (Unsp spec) [Mass/Vol] 4.5 mmol/L 3.3-5.1 [facility] RBC Auto (Bld) [#/Vol]Ordere d By: Slade Duarte on 09-13-2024 RBC (Bld) [#/Vol] 4.46 10*6/uL 4.2-5.4 [facility] Serum creatinine measurement (mass/volume)Ordered By: Slade Duarte on 09-13-2024 Creatinine [Mass/Vol] 0.51 mg/dL Low 0.70-1.20 [facility] Serum globulin measurementOr dered By: Slade Duarte on 09-13-2024 Globulin (S) [Mass/Vol] 2.7 g/dL 2.2-4.2 [facility] Serum glucose measurement (m ass/volume)Ordered By: Slade Duarte on 09-13-2024 Glucose [Mass/Vol] 100 mg/dL High 70-99 [facility] Serum or plasma alanine jimenez otransferase (ALT) measurementOrdered By: Slade Duarte on 09-13-2024 ALT [Catalytic activity/Vol] 29 U/L <35 [facility] Serum or plasma albumin rigoberto urement (mass/volume)Ordered By: Slade Duarte on 09-13-2024 Albumin [Mass/Vol] 4.3 g/dL 3.4-4.8 [facility] Serum or plasma albumin/glob ulin mass ratioOrdered By: Slade Duarte 09-13-2024 Albumin/Globulin [Mass ratio] 1.6 {ratio} 0.9-2.4 [facility] Serum or plasma alkaline nat sphatase measurementOrdered By: Slade Duarte 09-13-2024 ALP [Catalytic activity/Vol] 117 U/L High 35-104 [facility] Serum or plasma calcium rigoberto urement (mass/volume)Ordered By: Slade Duarte 09-13-2024 Calcium [Mass/Vol] 9.3 mg/dL 7.6-11.0 [facility] Serum or plasma oxcarbazepin e measurement (mass/volume)Ordered By: Slade Duarte 09-13-2024 OXcarbazepine [Mass/Vol] 6 ug/mL Low 10-35 [facility] Comment on above: This test was develo ped and its performance characteristicsdetermined by [employer]. It has not been cleared orapproved by the Food and Drug Administration. Detection Limit = 1Performed at: [facility] [place] [id number] Director: Sindhu Weaver MD, Phone: [phone] Serum or plasma urea nitroge n measurement (mass/volume)Ordered By: Slade Duarte on 09-13-2024 Urea nitrogen [Mass/Vol] 12 mg/dL 08-28 [facility] Sodium levelOrdered By: Jalencarolyn robbin Duarte on 09-13-2024 Sodium [Moles/Vol] 152 mmol/L High 133-145 [facility] Total proteinOrdered By: Jalen sadieraymond Duarte on 09-13-2024 Protein [Mass/Vol] 7.0 g/dL 5.9-8.4 [facility] White blood cell (WBC) count Ordered By: Slade Duarte on 09-13-2024 WBC (Bld) [#/Vol] 6.1 10*3/uL 4.4-11.0 [facility] BASIC METABOLIC PANEL WITH A NION GAPon 08-28-2024 BUN/CREATININE RATIO SEE NOTE: Normal - [facility] Comment on above: Result Comment: Not Reported: BUN and Creatinine are within reference range. Performed By: #### 9 [id number] #### [facility] [place] [address] Green Plumber: Hubert Mayers MD Calcium [Mass/Vol] 9.5 mg/dL Normal 8.6-10.4 [facility] Comment on above: Performed By: #### 9 1658 #### [facility] [place] [address] Green Plumber: Hubert Mayers MD Chloride [Moles/Vol] 93 mmol/L Low 98-110 [facility] Comment on above: Performed By: #### 9 [id number] #### [facility] [place] [address] Green Plumber: Hubert Mayers MD CO2 [Moles/Vol] 26 mmol/L Normal 20-32 [facility] Comment on above: Performed By: #### 9 8018 #### [facility] [place] [address] Green Plumber: Hubert Mayers MD Creatinine [Mass/Vol] 0.53 mg/dL Normal 0.50-1.[address] [facility] Comment on above: Performed By: #### 9 2498 #### [facility] [place] [address] Green Plumber: Hubert Mayers MD ELECTROLYTE BALANCE 10 mmol/L (calc) Normal 7-17 [facility] Comment on above: Performed By: #### 9 2498 #### [facility] [place] [address] Green Plumber: Hubert Mayers MD GFR/1.73 sq M.predicted among non-blacks MDRD (S/P/Bld) [Vol rate/Area] 106 mL/min/{1.73_m2} Normal > OR = 60 [facility] Comment on above: Performed By: #### 9 2498 #### [facility] [place] [address] Green Plumber: Hubert Mayers MD Glucose [Mass/Vol] 88 mg/dL Normal 65-99 [facility] Comment on above: Result Comment: Fasting reference interval Performed By: #### 9 2498 #### [facility] [place] [address] Green Plumber: Hubert Mayers MD Potassium [Moles/Vol] 4.7 mmol/L Normal 3.5-5.[address] [facility] Comment on above: Performed By: #### 9 2498 #### [facility] [place] [address] Green Plumber: Hubert Mayers MD Sodium [Moles/Vol] 129 mmol/L Low 135-146 [facility] Comment on above: Performed By: #### 9 2492 #### [facility] [place] [address] Green Plumber: Hubert Mayers MD Urea nitrogen [Mass/Vol] 17 mg/dL Normal 7-25 [facility] Comment on above: Performed By: #### 9 2498 #### [facility] [address] [place] [address] Green Plumber: Hubert Mayers MD Magnetic resonance imaging r eportOrdered By: Shaji Corona on 07-03-2024 Study report [facility] Imaging Services [address] [place] [address] Spine Thoracic W/WO Contrast MR#: [id number] Acct: [id number] Name: SOCORRO GRACE Rep #: [id number] : 1965 F 58 From: Ken Corona DO PCP: FRANCI Perez Status: REG CLI Study:Spine Thoracic W/WO Contrast Date of E xam: 07/02/24 Exam# [id number] Ordering Dr: Slade Duarte MD PROCEDURE: MRI thoracic spine without and with IV contrast REASON FOR EXAM: Multiple sclerosis TECHNIQUE: Multisequence multiplanar MR images of the thoracic spine were obtained before and after the administration of intravenous contrast. COMPARISON: None. FINDINGS: Focal hyperintense T2 signal within the left hemicord at the level of T10-11 measuring up to 11 mm in craniocaudal dimension. No other discrete cord signal abnormalities. No pathologic cord enhancement. Negative for acute fracture or bone marrow edema. Probable hemangioma within the T7 vertebral body measuring up to 16 mm. Alignment is within normal limits. No focal disc abnormality, spinal stenosis or foraminal narrowing. Mild paraspinal muscle atrophy without paraspinal mass. MRI/Spine Thoracic W/WO Contrast IMPRESSION: 1. Abnormal signal within the left hemicord at the level of T10-11 likely related to the history of multiple sclerosis. No other cord signal abnormalities or pathologic enhancement. Correlate with prior imaging. 2. No focal disc abnormality, significant spinal stenosis or foraminal narrowing. 3. Probable T7 vertebral body hemangioma. Reading Location: [facility] CC: SENIOR TABLEAU DEVELOPERManuel Javier; Dr. Slade Duarte MD ~ Station Captain: Signed [facility] Magnetic resonance imaging r eportOrdered By: Shaji Corona on 07-02-2024 Study report [facility] Imaging Services [address] [place] [address] Spine Cervical W/WO Contrast MR#: [id number] Acct: [id number] Name: SOCORRO GRACE Rep #: [id number] : 1965 F 58 From: Ken Corona DO PCP: Laisha Javier, SENIOR TABLEAU DEVELOPER-C Status: REG CLI Study:Spine Cervical W/WO Contrast Date of E xam: 07/02/24 Exam# [id number] Ordering Dr: Slade Duarte MD PROCEDURE: MRI cervical spine without and with IV contrast REASON FOR EXAM: Multiple sclerosis TECHNIQUE: Multisequence multiplanar MR images of the cervical spine were obtained before and after the administration of intravenous contrast. Imaging sequences were performed to best display suspected pathology. COMPARISON: 01/17/2022 FINDINGS: Focal hyperintense T2 cord signal along the left cord at the level of C3-4 measuring up to 9 mm in craniocaudal dimension, similar to prior. No new cord lesions or pathologic enhancement. Multiple similar-appearing hyperintense T2 lesions noted within the rosa. Vertebral body heights are within normal limits. Negative forfracture or marrow replacement. Mild multilevel degenerative endplate changes with degenerative disc disease. Grade 1 anterolisthesis of C4-5. No significant scoliosis. No paraspinal mass. C2-3: Minimal posterior disc bulge eccentric to the left. Mild spinal stenosis. No significant foraminal narrowing. C3-4: Small posterior disc osteophyte complex. Mild spinal stenosis. Advanced right facet arthropathy. Moderate right foraminal narrowing. C4-5: No focal disc abnormality, significant spinal stenosis or foraminal narrowing. C5-6: Posterior disc osteophyte complex eccentric to the left. Bilateral uncovertebral arthrosis, greater on the left. Mild spinal stenosis. Severe left and mild right foraminal narrowing. C6-7: Minimal posterior disc osteophyte complex. No significant spinal stenosisor foraminal narrowing. C7-T1: No focal disc abnormality, spinal stenosis or foraminal narrowing. MRI/Spine Cervical W/WO Contrast IMPRESSION: 1. Unchanged hyperintense T2 signal in the left hemicord at C3-C4. No new cord lesions or pathologic enhancement. 2. Acquired mild multilevel spinal stenosis as above. 3. Acquired multilevel foraminal narrowing, greatest on the left at C5-6 categorized as severe. Reading Location: [facility] CC: FRANCI Javier; Dr. Slade Duarte MD ~ Station Captain: Signed [facility] Spine Cervical W/WO Contrast on 07-02-2024 Spine Cervical W/WO Contrast [facility] Imaging Services [address] [place], [place] [address] Spine Cervical W/WO Contrast MR#: [id number] Acct: [id number] Name: SOCORRO GRACE Rep #: [id number] : 1965 F 58 From: Shaji Garza PCP: FRANCI Perez Status: DEP CLI Study: Spine Cervical W/WO Contrast Date of Exam: Exam# [id number] Ordering Dr: Slade Duarte MD ADDENDUM by Dr. Shaji Corona DO on 07/20/24 at 1405 13 mL of intravenous Clariscan was administered. Reading Location: [facility] 07/20/24 1406 Date cc: FRANCI Javier; Dr. Slade Duarte MD * Signed PROCEDURE: MRI cervical spine without and with IV contrast REASON FOR EXAM: Multiple sclerosis TECHNIQUE: Multisequence multiplanar MR images of the cervical spine were obtained before and after the administration of intravenous contrast. Imaging sequences were performed to best display suspected pathology. COMPARISON: 01/17/2022 FINDINGS: Focal hyperintense T2 cord signal along the left cord at the level of C3-4 measuring up to 9 mm in craniocaudal dimension, similar to prior. No new cord lesions or pathologic enhancement. Multiple similar-appearing hyperintense T2 lesions noted within the rosa. Vertebral body heights are within normal limits. Negative for fracture or marrow replacement. Mild multilevel degenerative endplate changes with degenerative disc disease. Grade 1 anterolisthesis of C4-5. No significant scoliosis. No paraspinal mass. C2-3: Minimal posterior disc bulge eccentric to the left. Mild spinal stenosis. No significant foraminal narrowing. C3-4: Small posterior disc osteophyte complex. Mild spinal stenosis. Advanced right facet arthropathy. Moderate right foraminal narrowing. C4-5: No focal disc abnormality, significant spinal stenosis or foraminal narrowing. C5-6: Posterior disc osteophyte complex eccentric to the left. Bilateral uncovertebral arthrosis, greater on the left. Mild spinal stenosis. Severe left and mild right foraminal narrowing. C6-7: Minimal posterior disc osteophyte complex. No significant spinal stenosis or foraminal narrowing. C7-T1: No focal disc abnormality, spinal stenosis or foraminal narrowing. MRI/Spine Cervical W/WO Contrast IMPRESSION: 1. Unchanged hyperintense T2 signal in the left hemicord at C3-C4. No new cord lesions or pathologic enhancement. 2. Acquired mild multilevel spinal stenosis as above. 3. Acquired multilevel foraminal narrowing, greatest on the left at C5-6 categorized as severe. Reading [facility] CC: FRANCI Javier; Dr. Slade Duarte MD Station Captain: Signed Normal [facility] Spine Thoracic W/WO Contrast on 07-02-2024 Spine Thoracic W/WO Contrast [facility] Imaging Services [address] [place], [place] [address] Spine Thoracic W/WO Contrast MR#: [id number] Acct: [id number] Name: SOCORRO GRACE Rep #: [id number] : 1965 F 58 From: Shaji Garza PCP: FRANCI Perez Status: DEP CLI Study: Spine Thoracic W/WO Contrast Date of Exam: Exam# [id number] Ordering Dr: Slade Duarte MD ADDENDUM by Dr. Shaji Corona DO on 07/20/24 at 1405 13 mL of intravenous Clariscan was administered. Reading Location: [facility] 07/20/24 1405 Date cc: FRANCI Javire; Dr. Slade Duarte MD * Signed PROCEDURE: MRI thoracic spine without and with IV contrast REASON FOR EXAM: Multiple sclerosis TECHNIQUE: Multisequence multiplanar MR images of the thoracic spine were obtained before and after the administration of intravenous contrast. COMPARISON: None. FINDINGS: Focal hyperintense T2 signal within the left hemicord at the level of T10-11 measuring up to 11 mm in craniocaudal dimension. No other discrete cord signal abnormalities. No pathologic cord enhancement. Negative for acute fracture or bone marrow edema. Probable hemangioma within the T7 vertebral body measuring up to 16 mm. Alignment is within normal limits. No focal disc abnormality, spinal stenosis or foraminal narrowing. Mild paraspinal muscle atrophy without paraspinal mass. MRI/Spine Thoracic W/WO Contrast IMPRESSION: 1. Abnormal signal within the left hemicord at the level of T10-11 likely related to the history of multiple sclerosis. No other cord signal abnormalities or pathologic enhancement. Correlate with prior imaging. 2. No focal disc abnormality, significant spinal stenosis or foraminal narrowing. 3. Probable T7 vertebral body hemangioma. Reading Location: [facility] CC: FRANCI Javier; Dr. Slade Duarte MD Station Captain: Signed Normal [facility] Neurology Visit Reporton Neurology Visit Report [facility] [address], [address] [place] [address] OFFICE VISIT Date of Service: 05/31/24 MR#: [id number] Acct: [id number] Name: SOCORRO GRACE Rep #: [id number] : 1965 Provider: Dr. Slade lugo MD Age/Sex: 58/F Location: BMS.BN Status: Signed with Addenda ADDENDUM by Dr. Slade Duarte MD on 06/17/24 at 1628 Addendum Addendum (06/17/2024): Head MRI with and without contrast (04/19/2024): Comparison: Head MRI 08/07/2023 FINDINGS: HEMISPHERES, CEREBELLUM AND BRAINSTEM: 1. The cerebral parenchyma, ventricular system, subarachnoid spaces have normal configuration and density. There is a normal gyral pattern. There is normal mg/white differentiation. No midline shift.. 2. Persistent diffuse white matter FLAIR and T2 signal hyperintensity bilaterally. Pattern and distribution are stable. 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 No evidence however of fluid restriction or acute ischemic change. No evidence of abnormal contrast enhancement. No intraparenchymal mass, hemorrhage, or acute territorial infarct. 3. The cerebellum, brainstem, basilar and suprasellar cisterns have normal configuration. There are areas of signal abnormality along the basilar rosa greater on the RIGHT than LEFT without significant interval change.. No Chiari malformation. 4. No masses abnormal signal or abnormal contrast enhancement associated with the trigeminal nerve bilaterally. PITUITARY: Infundibulum and pituitary have normal configuration. Midline structures appear normal. CSF SPACES: Appropriate for age. No hydrocephalus. Basal cisterns are patent. VESSELS: 1. There are normal flow voids noted in the great vessels at the skull base ORBITS AND PARANASAL SINUSES: 1. Both globes, extraocular muscles, optic nerves and retrobulbar fat appear unremarkable. 2. Paranasal sinuses are clear. BONY ELEMENTS: Bony elements of the cranial vault, facial skeleton and skull base have normal appearance. SCALP AND SOFT TISSUES: Normal appearance of the soft tissues of the scalp and the visualized face OTHER: None IMPRESSION: 1. Stable exam. 2. No mass, hemorrhage, or acute territorial infarct. 3. Focal areas of T2 and FLAIR signal hyperintensity in the hemispheric white matter, and brainstem with a pattern consistent with MS. 4. No evidence of acute demyelination. 5. No areas of abnormal contrast enhancement. These images were reviewed on 06/17/2024. Mild to moderate subcortical white matter and periventricular white matter changes consistent with MS. High intensity T2 flair signal changes in the rosa are also noted consistent with multiple sclerosis; this is unchanged from her scan from 08/07/2023. No enhancing plaques are noted. No worsening of overall plaque load is noted when compared to the patient's head MRI from 08/07/2023. The repeat head MRI ordered in May 2024 will be canceled. 06/17/24 1628 Date Slade Duarte MD cc: FRANCI Javier * Signed ADDENDUM by Dr. Slade Duarte MD on 06/01/24 at 0924 Addendum Addendum (06/01/2024): CMP, CBC (03/27/2024): Sodium 131 (low) 10-hydroxycarbazepine (03/27/2024): 2.1 (low) Clarification: The patient's trigeminal neuralgia pain began in 2022. 06/01/24 0924 Date Slade Duarte MD cc: FRANCI Javier * Signed HPI HPI Chief Complaint: Details: Interim History: Socorro returns for follow-up visit. She has a history of anxiety, hypercholesterolemia, vitamin D deficiency and multiple sclerosis. She was diagnosed with multiple sclerosis in 2006 when she presented with cognitive impairment, left-sided weakness, leg spasms, fatigue, and diplopia. Based on MRI findings and her clinical examination, she was diagnosed with multiple sclerosis in 2006 and was started on Avonex. She had flulike symptoms as a side effect to Avonex. She was then switched to Copaxone, then to Gilenya and then to Tecfidera (and also took the generic form, dimethyl fumarate). In February 2021, she was switched from dimethyl fumarate to Vumerity. She did not had symptomatic side effects to Vumerity however her absolute lymphocyte count was low despite reducing her dose of Vumerity to 231 mg daily. She was subsequently switched from Vumerity to Aubagio in 2021 and has tolerated this well and her last absolute lymphocyte count in November 2023 was normal. Over the 5 years prior to 2006, she had had intermittent symptoms that included numbness and tingling in the extremities. Since 2006, she has had fluctuating and/or intermittent symptoms that have included diplopia (individual episodes would be pronounced for about 1 day each). She has gait imbalance; this worsened further since 2020. She has urinary frequency and urgency (more content not included)... Normal [facility] CNOVon 05-04-2024 CNOV Office Visit (UROLMD ) -- SOCORRO GRACE ([id number]) 1965 F LV Date Time Provider Department 05/04/24 10:20 AM DIMPLE SALAZAR URODRE During your visit today, we recorded the following information about you: Weight Height 66.7 kg 1.676 m Dimple Salazar, VETERINARY LABORATORY DIAGNOSTICIAN.[facility] 05/04/2024 10:56 AM Signed Socorro Grace is a 58 year old female who presents today for evaluation of No chief complaint on file. CHIEF COMPLAINT AND HISTORY OF PRESENT ILLNESS CC: follow up 58 year old female with a history of MS with OAB, urinary urge incontinence presents for follow up, she was seen in our office August 2023 started on trospium 20 mg bid she feels that the medication has helped with DTF and urgency. Past PFPT and kegels Denies frequent uti Denies gross hematuria PVR 0 cc DTF:every 2-3 hours was 1.5-2.0 hours NTF: 0-3 times URGENCY:yes improved UUI:yes improved DEVIN:rare STRAINING:no COMPLETE EMPTYING:yes PADS PER DAY: one was 2-3 depends per day, not always soaked FLUID INTAKE: water 80 ounces 1 cup of coffee in the morning vaginal deliveries s/p hysterectomy for endometriosis Past Urological History: Stones:no Surgery:no Tumors:no Infections:no VITALS: There were no vitals taken for this visit. ALLERGIES: Seasonal Allergies and Penicillins MEDICATIONS: Current Outpatient Medications Medication Sig Dispense Refill trospium (SANCTURA) 20 mg tablet Take 1 tablet by mouth two times a day. 60 tablet 3 SUMAtriptan (IMITREX) 100 mg tablet Take 1 tablet (100 mg) by mouth as needed for migraine headache (see administration instructions). at onset of headache.May repeat after 2 hours. 9 tablet 0 alendronate (FOSAMAX) 70 mg tablet TAKE 1 TABLET BY MOUTH ONCE A WEEK BEFORE THE FIRST FOOD, BEVERAGE OR MEDICINE OF THE DAY WITH PLAIN WATER magnesium oxide 400 mg magnesium tab hydrOXYzine HCl (ATARAX) 10 mg tablet Take 10 mg by mouth once daily. teriflunomide (AUBAGIO) 14 mg tablet Take 14 mg by mouth once daily. ascorbic acid, vitamin C, 500 mg cap Take 500 mg by mouth once daily. mecobalamin, vitamin B12, 1,000 mcg chew Take by mouth. multivitamin with minerals (VISION/OPTIGEN) tablet Take by mouth. escitalopram oxalate (LEXAPRO) 20 mg tablet Take 1 tablet by mouth once daily. 90 tablet 3 ondansetron (ZOFRAN) 4 mg tablet Take 1 tablet by mouth every 8 hours as needed. 20 tablet 0 gabapentin (NEURONTIN) 400 mg capsule TAKE 1 CAPSULE BY MOUTH THREE TIMES DAILY FOR 90 DAYS. 90 capsule 2 ALAWAY 0.025 % (0.035 %) ophthalmic solution USE 1 DROP IN BOTH EYES TWICE DAILY. IN AFFECTED EYE(S). 10 mL 2 fluticasone (FLONASE) 50 mcg/actuation nasal spray SPRAY 1 SPRAY INTO EACH NOSTRIL EVERY DAY 16 mL 5 Ferrous Gluconate 240 mg (27 mg iron) tablet TAKE 1 TABLET BY MOUTH EVERY DAY IN THE MORNING 2 melatonin 10 mg cap Take 1 capsule by mouth daily at bedtime. 2 Cholecalciferol, Vitamin D3, 5,000 unit cap Take 5,000 Units by mouth once daily. No current facility-administered medications for this visit. SOCIAL HISTORY: Social History Tobacco Use Smoking status: Every Day Current packs/day: 0.00 Average packs/day: 0.3 packs/day for 13.0 years (3.3 ttl pk-yrs) Types: Cigarettes Start date: 1979 Last attempt to quit: 1992 Years since quittin.0 Smokeless tobacco: Never Tobacco comments: 1 cig per week - recreational Substance Use Topics Alcohol use: Yes Comment: once a night Drug use: No PAST MEDICAL HISTORY: PAST MEDICAL HISTORY Diagnosis Date Depression SOCORRO (generalized anxiety disorder) Headache in front of head 07/27/2023 Possibly due to UTI with E. coli, also it is in a sinus distribution for the headache and may be new onset migraine but since this is the first time its happened to her diagnosis of migraine cannot be made with certainty. MS (multiple sclerosis) ([facility]) 2006 Dr. Buckley Osteopenia hip, spine. BMD 03/29 S/P hysterectomy LAYNE/BSO - endometriosis Snoring normal sleep study. on flonase Vitamin D deficiency PAST SURGICAL HISTORY: PAST SURGICAL HISTORY Procedure Laterality Date COLONOSCOPY 11/23/2013 - repeat 5 years - reminder created TOTAL ABDOMINAL HYSTERECT W/WO RMVL TUBE OVARY 05/12/1999 appendix with LAYNE/BSO for endometriosis FAMILY HISTORY: FAMILY HISTORY Problem Relation Age of Onset Diabetes Father Colon Cancer Father 60's, partial colectomy Heart Attack Father other (stents) Father Arthritis Mother other (migraines) Mother other (hsp) Daughter nephritis other (migraines) Daughter Colon Cancer Maternal Grandfather Ovarian cancer Sister 40's 1/2 other (hepatitis C) Sister No Ocular Disease Other All histories reviewed on this date 05/04/2024: Yes REVIEW OF SYSTEMS: CONSTITUTIONAL: Patient reports no recent fever or weight loss CARDIOVASCULAR: Negative for chest pain. RESPIR (more content not included)... Normal [facility] UA DIP, URINE (POC)on 2023 BILIRUBIN UA (POCT) Negative Negative [facility] CLARITY UA (POCT) Clear [facility] COLOR UA (POCT) Yellow [facility] GLUCOSE UA (POCT) Negative Negative mg/dL [facility] Hemoglobin Ql (U) Negative Negative [facility] Interpretation and review of laboratory results Abnormal [facility] KETONE UA (POCT) Negative Negative mg/dL [facility] LEUKOCYTES UA (POCT) Trace Abnormal Negative [facility] NITRITE UA (POCT) Negative Negative [facility] PH UA (POCT) 7.0 4.5 - 8.[address] [facility] Protein Ql (U) Negative Negative mg/dL [facility] SPECIFIC GRAVITY UA (POCT) 1.015 1.005 - 1.[address] [facility] UROBILINOGEN UA (POCT) 0.2 Deneen l E.U./dL [facility] Location:[facility], [address] [place], [address] [facility] POINT OF CARE [facility] Brain W/WO Contraston 2023 Brain W/WO Contrast [facility] Imaging Services [address] [place] [address] Brain W/WO Contrast MR#: [id number] Acct: [id number] Name: SOCORRO GRACE Rep #: [id number] : 1965 F 58 From: Lawrence Rdz PCP: Care Physician,No Primary Status: REG CLI Study: Brain W/WO Contrast Date of Exam: 04/19/24 Exam# [id number] Ordering Dr: Slade Duarte MD [id number] INDICATION: Left trigeminal neuralgia-without chin pain ; multiple sclerosis follow up, balance issues EXAMINATION: MRI - MR Brain WO/W Contrast TECHNIQUE: MRI examination of brain obtained with standard protocol including multiplanar multiecho imaging. Pre and Postcontrast imaging obtained. IV Contrast Dosage and Agent: 14 mL Clariscan IV COMPARISON: MRI examination brain of 08/07/2023 FINDINGS: HEMISPHERES, CEREBELLUM AND BRAINSTEM: 1. The cerebral parenchyma, ventricular system, subarachnoid spaces have normal configuration and density. There is a normal gyral pattern. There is normal mg/white differentiation. No midline shift.. 2. Persistent diffuse white matter FLAIR and T2 signal hyperintensity bilaterally. Pattern and distribution are stable. 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 No evidence however of fluid restriction or acute ischemic change. No evidence of abnormal contrast enhancement. No intraparenchymal mass, hemorrhage, or acute territorial infarct. 3. The cerebellum, brainstem, basilar and suprasellar cisterns have normal configuration. There are areas of signal abnormality along the basilar rosa greater on the RIGHT than LEFT without significant interval change.. No Chiari malformation. 4. No masses abnormal signal or abnormal contrast enhancement associated with the trigeminal nerve bilaterally. PITUITARY: Infundibulum and pituitary have normal configuration. Midline structures appear normal. CSF SPACES: Appropriate for age. No hydrocephalus. Basal cisterns are patent. VESSELS: 1. There are normal flow voids noted in the great vessels at the skull base ORBITS AND PARANASAL SINUSES: 1. Both globes, extraocular muscles, optic nerves and retrobulbar fat appear unremarkable. 2. Paranasal sinuses are clear. BONY ELEMENTS: Bony elements of the cranial vault, facial skeleton and skull base have normal appearance. SCALP AND SOFT TISSUES: Normal appearance of the soft tissues of the scalp and the visualized face OTHER: None MRI/Brain W/WO Contrast IMPRESSION: 1. Stable exam. 2. No mass, hemorrhage, or acute territorial infarct. 3. Focal areas of T2 and FLAIR signal hyperintensity in the hemispheric white matter, and brainstem with a pattern consistent with MS. 4. No evidence of acute demyelination. 5. No areas of abnormal contrast enhancement. Electronically Signed: Lawrence Mayo MD at 21:39 EST , CC: Dr. Slade Duarte MD; No Primary Care Physician Station Captain: Signed Normal [facility] CREATININE FINGERSTICKon CREATININE WB < 1.0 Normal 0.55-1.02 [facility] Comment on above: Performed By: #### L 9100.0200 ####[facility] [address] [facility] [address] [place], [place], [address] EGFR WB > 60.0000 Normal >60 [facility] Comment on above: Performed By: #### L 9100.0200 ####[facility] [address] [facility] [place], [address] Creatinine measurement at dsideOrdered By: Slade Duarte on 04-19-2024 Bedside Creatinine < 1.0 mg/dL 0.55-1.02 [facility] EGFROrdered By: Slade lugo on 04-19-2024 Bedside Estimated GFR (eGFR) > 60.0000 mL/min >60 [facility] 36on 04-12-2024 36 S: Patient is return ing a call to the office. B: Tested + COVID today. A: She called earlier today and was triaged by CAC RN. Body aches are her worst symptom. Taking ibuprofen which isn't helping. She may go to [facility] tomorrow or the next day if sore throat and earache continues. She is just wondering what her PCP would recommend. She denies SOB or chest pain. R: Advised a message would be sent to provider for recommendations. Allergies and pharmacy reviewed in eCW. She would like a call back and if not available, then a message left. HP TE entered in eCW. Reason for Disposition [1] Follow-up call from patient regarding patient's clinical status AND [2] information NON-URGENT Protocols used: [facility]CP Call - [id number] S: Patient spoke wit [facility] nurse regarding body aches, fever, cold symptoms B: Onset of symptoms/concern Friday A: Pt reports Friday/Friday was just sneezing and cold symptoms. States today started with body achy, has a fever (100.3), headache, sore throat and ears are sore today. Family members tested positive for COVID Friday and they have been around them. Took COVID tests at home that are giving her a note says invalid reading Pt reports she has been directed to call in prior to going to , reports she is unable to do a virtual visit and has no ride to the office during business hours due to her spouse is working. Reports she will likely have to to to the [facility] clinic R: Patient understands care advice. Patient instructed to call back with new or worsening symptoms. Message sent to the provider's office for review and recommendations HP Reason for Disposition [1] HIGH RISK patient AND [2] influenza is widespread in the community AND [3] ONE OR MORE respiratory symptoms: cough, sore throat, runny or stuffy nose Protocols used: Coronavirus (COVID-19) Diagnosed or [id number] 36on 03-29-2024 36 Name of caller: Socorro Contact phone number: [phone] Relationship to Patient: patient Provider: Dr. Stacy Practice: [facility] Chief Complaint/Reason for Call: Patient states that they had just spoke to someone in office regarding the lab work they completed on Tuesday 03/27 and the lab is using the blood they gave on Friday to do a B12, Vitamin D, and lipid panel lab and they will need the orders for this faxed to them. Patient would like these lab orders faxed to #[phone] attention lab [facility]. Patient is requesting a call back to be informed and states that a voicemail can be left. Please advise. Best time of day caller can be reached: Any Patient advised that office/PCP has 24-48 business hours to return their call: No Normal [facility] SHS 10-Hydroxycarbazepineon 03-12 10-Hydroxycarbazepine [Mass/Vol] 2.1 ug/mL Low 10.0-35.0 [facility] Comment on above: Result Comment: INTE RPRETIVE INFORMATION: Oxcarbazepine Metabolite, Serum Therapeutic Range: 10.0 - 35.0 ug/mL Toxic Range: >=40.0 ug/mL This test measures monohydroxyoxcarbazepine (MHD). Adverse effects may include dizziness, fatigue, nausea, headache, somnolence, ataxia, and tremor. Performed By: [facility] [address] [place] [address] Mild Disabilities Teacher: Luis M Mccracken MD, PhD CLIA Number: [id number] Performed By: #### 3 1019-3 #### [facility] ([facility]) ([id number]) [address] [place] [address] CBC panel Auto (Bld)on 03-27 Erythrocyte distribution width (RBC) [Ratio] 12.8 % Normal 11.5-14.5 [facility] Comment on above: Performed By: #### 5 8410-2 #### RAFI KENDALL ([id number]) [facility] ([facility]) [address] [place] [address] Hematocrit (Bld) [Volume fraction] 45.1 % Normal 36.0-46.0 [facility] Comment on above: Performed By: #### 5 8410-2 #### RAFI KENDALL ([id number]) [facility] ([facility]) [address] [place] [address] Hemoglobin (Bld) [Mass/Vol] 15.1 g/dL Normal 12.0-16.0 [facility] Comment on above: Performed By: #### 5 8410-2 #### RAFI KENDALL ([id number]) [facility] ([facility]) [address] [place] [address] MCH (RBC) [Entitic mass] 28.3 pg Normal 26.0-34.0 [facility] Comment on above: Performed By: #### 5 8410-2 #### RAFI KENDALL ([id number]) [facility] ([facility]) [address] [place] [address]781 MCHC (RBC) [Mass/Vol] 33.5 g/dL Normal 32.0-36.0 [facility] Comment on above: Performed By: #### 5 8410-2 #### RAFI KENDALL ([id number]) [facility] ([facility]) [address] [place] [address] MCV (RBC) [Entitic vol] 85 fL Normal 80-100 [facility] Comment on above: Performed By: #### 5 8410-2 #### RAFI KENDALL ([id number]) [facility] ([facility]) [address] [place] [address] Nucleated RBC/100 WBC (Bld) [Ratio] 0.0 /100 WBCs Normal 0.0-0.0 [facility] Comment on above: Performed By: #### 5 8410-2 #### RAFI KENDALL ([id number]) [facility] ([facility]) [address] [place] [address] Platelets (Bld) [#/Vol] 242 x10*3/uL Normal 150-450 [facility] Comment on above: Performed By: #### 5 8410-2 #### RAFI KENDALL ([id number]) [facility] ([facility]) [address] [place] [address] 14436 RBC (Bld) [#/Vol] 5.34 x10*6/uL High 4.00-5.20 [facility] Comment on above: Performed By: #### 5 8410-2 #### RAFI KENDALL ([id number]) [facility] ([facility]) [address] [place] [address]25 WBC (Bld) [#/Vol] 6.0 x10*3/uL Normal 4.4-11.3 [facility] Comment on above: Performed By: #### 5 8410-2 #### RAFI KENDALL ([id number]) [facility] ([facility]) [address] [place] [address] Comprehensive metabolic 2000 panelon 03-27-2024 Albumin BCP dye [Mass/Vol] 4.5 g/dL Normal 3.4-5.0 [facility] Comment on above: Performed By: #### 2 4323-8 #### RAFI KENDALL ([id number]) [facility] ([facility]) [address] [place] [address]259 ALP [Catalytic activity/Vol] 109 U/L Normal 33-136 [facility] Comment on above: Performed By: #### 2 4323-8 #### RAFI KENDALL ([id number]) [facility] ([facility]) [address] [place] [address] 89383 ALT With P-5'-P [Catalytic activity/Vol] 32 U/L Normal 7-45 [facility] Comment on above: Result Comment: Nhung ents treated with Sulfasalazine may generate falsely decreased results for ALT. Performed By: #### 2 4323-8 #### RAFI KENDALL ([id number]) [facility] ([facility]) [address] [place] [address] Anion gap [Moles/Vol] 12 mmol/L Normal 10-20 [facility] Comment on above: Performed By: #### 2 4323-8 #### RAFI KENDALL ([id number]) [facility] ([facility]) [address] [place] [address] 26459 AST With P-5'-P [Catalytic activity/Vol] 21 U/L Normal 9-39 [facility] Comment on above: Performed By: #### 2 4323-8 #### RAFI KENDALL ([id number]) [facility] ([facility]) [address] [place] [address]658 Bilirubin [Mass/Vol] 0.7 mg/dL Normal 0.0-1.2 [facility] Comment on above: Performed By: #### 2 4323-8 #### RAFI KENDALL ([id number]) [facility] ([facility]) [facility] [place] [address] Calcium [Mass/Vol] 9.0 mg/dL Normal 8.6-10.3 [facility] Comment on above: Performed By: #### 2 4323-8 #### RAFI KENDALL ([id number]) [facility] ([facility]) [address] [place] [address]2628 Chloride [Moles/Vol] 99 mmol/L Normal 98-107 [facility] Comment on above: Performed By: #### 2 4323-8 #### RAFI KENDALL ([id number]) [facility] ([facility]) [address] [place] [address]53 CO2 [Moles/Vol] 24 mmol/L Normal 21-32 [facility] Comment on above: Performed By: #### 2 4323-8 #### RAFI KENDALL ([id number]) [facility] ([facility]) [address] [place] [address] Creatinine [Mass/Vol] 0.60 mg/dL Normal 0.50-1.05 [facility] Comment on above: Performed By: #### 2 4323-8 #### RAFI KENDALL ([id number]) [facility] ([facility]) [address] [place] [address]41 GFR/1.73 sq M.predicted MDRD (S/P/Bld) [Vol rate/Area] mL/min/{1.73_m2} Normal >60 [facility] Comment on above: Result Comment: Calc ulations of estimated GFR are performed using the 2020 CKD-EPI Study Refit equation without the race variable for the IDMS-Traceable creatinine methods. https://jasn.asnjournals.org/content/early//ASN.98520 31556 Performed By: #### 2 4323-8 #### RAFI KENDALL ([id number]) [facility] ([facility]) [address] [place] [address]9224 Glucose [Mass/Vol] 79 mg/dL Normal 74-99 [facility] Comment on above: Performed By: #### 2 4323-8 #### RAFI KENDALL ([id number]) [facility] ([facility]) [address] [place] [address]8030 Potassium [Moles/Vol] 4.3 mmol/L Normal 3.5-5.3 [facility] Comment on above: Performed By: #### 2 4323-8 #### RAFI KENDALL ([id number]) [facility] ([facility]) [address] [place] [address] Protein [Mass/Vol] 7.0 g/dL Normal 6.4-8.2 [facility] Comment on above: Performed By: #### 2 4323-8 #### RAFI KENDALL ([id number]) [facility] ([facility]) [address] [place] [address] Sodium [Moles/Vol] 131 mmol/L Low 136-145 [facility] Comment on above: Performed By: #### 2 4323-8 #### RAFI KENDALL ([id number]) [facility] ([facility]) [address] [place] [address] 77739 Urea nitrogen [Mass/Vol] 8 mg/dL Normal 6-23 [facility] Comment on above: Performed By: #### 2 4323-8 #### RAFI KENDALL ([id number]) [facility] ([facility]) [address] [place] [address] Nicole 03-22-2024 JO ANN Telephone (BOZENA) -- SOCORRO GRACE ([id number]) 1965 F Date Time Provider Department 03/22/24 COYNER, DIMPLE J UROLMD During your visit today, we recorded the following information about you: Kavya Lancaster RN 03/22/2024 2:53 PM Signed Patient calling to see if she needs to follow up before the end of the year with Dimple Salazar. Spoke with patient and she was to do a Voiding diary and she will complete and we do want to see her for follow up. She has been doing Kegel declined that she was doing PFPT and wanted Pelvic floor muscle checking. Appt scheduled for 04-14-2024. Closing. Allergies As of Date: 03/22/2024 Noted Allergy Reaction SEASONAL ALLERGIES 09/16/2020 5 - Intolerance PENICILLINS 06/27/2009 2 - Rash Date Reviewed: 08/19/2023 Reviewed by: Dimple Salazar, MIGUELINA.DIRECTOR REGULATORY COMPLIANCE - Fully Assessed Reason for Visit: Follow up appt [Other] Prescriptions as of 03/22/2024 - trospium (SANCTURA) 20 mg tablet Take 1 tablet by mouth two times a day. - SUMAtriptan (IMITREX) 100 mg tablet Take 1 tablet (100 mg) by mouth as needed for migraine headache (see administration instructions). at onset of headache.May repeat after 2 hours. - alendronate (FOSAMAX) 70 mg tablet TAKE 1 TABLET BY MOUTH ONCE A WEEK BEFORE THE FIRST FOOD, BEVERAGE OR MEDICINE OF THE DAY WITH PLAIN WATER - magnesium oxide 400 mg magnesium tab - hydrOXYzine HCl (ATARAX) 10 mg tablet Take 10 mg by mouth once daily. - teriflunomide (AUBAGIO) 14 mg tablet Take 14 mg by mouth once daily. - ascorbic acid, vitamin C, 500 mg cap Take 500 mg by mouth once daily. - mecobalamin, vitamin B12, 1,000 mcg chew Take by mouth. - multivitamin with minerals (VISION/OPTIGEN) tablet Take by mouth. - escitalopram oxalate (LEXAPRO) 20 mg tablet Take 1 tablet by mouth once daily. - ondansetron (ZOFRAN) 4 mg tablet Take 1 tablet by mouth every 8 hours as needed. - gabapentin (NEURONTIN) 400 mg capsule TAKE 1 CAPSULE BY MOUTH THREE TIMES DAILY FOR 90 DAYS. - ALAWAY 0.025 % (0.035 %) ophthalmic solution USE 1 DROP IN BOTH EYES TWICE DAILY. IN AFFECTED EYE(S). - fluticasone (FLONASE) 50 mcg/actuation nasal spray SPRAY 1 SPRAY INTO EACH NOSTRIL EVERY DAY - Ferrous Gluconate 240 mg (27 mg iron) tablet TAKE 1 TABLET BY MOUTH EVERY DAY IN THE MORNING - melatonin 10 mg cap Take 1 capsule by mouth daily at bedtime. - Cholecalciferol, Vitamin D3, 5,000 unit cap Take 5,000 Units by mouth once daily. 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 Diplopia [H53.2] 05/22/2012 Left arm weakness [R29.898] 02/16/2013 Stress incontinence [N39.3] 11/09/2013 Hormone replacement therapy [Z79.890] 11/09/2013 12/19/2017 Osteopenia [M85.80] 04/12/2014 Recurrent major depressive disorder, in partial*04/18/2017 Tobacco abuse [Z72.0] 12/19/2017 S/P hysterectomy [Z90.710] MS (multiple sclerosis) ([facility]) [G35] 05/12/2006 12/19/2017 Depression [F32.A] Vitamin D deficiency [E55.9] SOCORRO (generalized anxiety disorder) [F41.1] Colon cancer screening [Z12.11] 10/21/2017 12/19/2017 Family hx of colon cancer [Z80.0] 10/21/2017 Falls [R29.6] 12/26/2017 Fatigue [R53.83] 12/26/2017 MS (multiple sclerosis) ([facility]) [G35] 05/12/2006 Tobacco abuse [Z72.0] 01/02/2021 LAM positive [R76.8] 08/19/2018 Snoring [R06.83] Hypercholesterolemia [E78.00] 04/06/2021 Hyponatremia [E87.1] 07/26/2023 07/27/2023 Hemiparesis, left (HCC) [G81.94] 07/26/2023 Hypophosphatemia [E83.39] 07/27/2023 Migraine headache [G43.909] 07/27/2023 Encounter Status:Closed by KAVYA LANCASTER on 03/22/24 [facility] BI MAMMO BILATERAL SCREENING TOMOSYNTHESISon 02-17-2024 BI MAMMO BILATERAL SCREENING TOMOSYNTHESIS Interpreted By: Juan Luis Grimm, STUDY: BI MAMMO BILATERAL SCREENING TOMOSYNTHESIS; 02/17/2024 10:23 am ACCESSION NUMBER(S): [id number] ORDERING CLINICIAN: AGUSTINA STACY INDICATION: Screening. COMPARISON: Digital mammograms dated 01/20/2023 FINDINGS: CC and MLO 2D digital mammograms and digital breast tomosynthesis images were obtained of the bilateral breasts. 3-D volume images were reconstructed in 4 views at an independent workstation as 1 mm slices through the breasts in both the CC and MLO projections. Density: There are scattered areas of fibroglandular density. No discrete mass or focal asymmetry is identified. No suspicious microcalcifications or foci of architectural distortion are seen. There has been no significant change. This study was interpreted with CAD. IMPRESSION: No mammographic evidence of malignancy. BI-RADS CATEGORY: BI-RADS Category: 1 Negative. Recommendation: Routine Screening Mammogram in 1 Year. Recommended Date: 1 Year. Laterality: Bilateral. MACRO: None Signed by: Juan Luis Grimm 02/17/2024 12:30 PM Dictation workstation: [id number] [facility] DBT Breast - bilateralon No mammographic evid ence of malignancy. BI-RADS CATEGORY: BI-RADS Category: 1 Negative. Recommendation: Routine Screening Mammogram in 1 Year. Recommended Date: 1 Year. Laterality: Bilateral. MACRO: None Signed by: Juan Luis Grimm 02/17/2024 12:30 PM Dictation workstation: [id number] MMODAL Interpreted By: Juan Luis Torres, STUDY: BI MAMMO BILATERAL SCREENING TOMOSYNTHESIS; 02/17/2024 10:23 am ACCESSION NUMBER(S): [id number] ORDERING CLINICIAN: AGUSTINA STACY INDICATION: Screening. COMPARISON: Digital mammograms dated 01/20/2023 FINDINGS: CC and MLO 2D digital mammograms and digital breast tomosynthesis images were obtained of the bilateral breasts. 3-D volume images were reconstructed in 4 views at an independent workstation as 1 mm slices through the breasts in both the CC and MLO projections. Density: There are scattered areas of fibroglandular density. No discrete mass or focal asymmetry is identified. No suspicious microcalcifications or foci of architectural distortion are seen. There has been no significant change. This study was interpreted with CAD. [facility] MMODAL Juan Luis Grimm MD - 02/17/2024 Interpreted By: Juan Luis Grimm, STUDY: BI MAMMO BILATERAL SCREENING TOMOSYNTHESIS; 02/17/2024 10:23 am ACCESSION NUMBER(S): [id number] ORDERING CLINICIAN: AGUSTINA STACY INDICATION: Screening. COMPARISON: Digital mammograms dated 01/20/2023 FINDINGS: CC and MLO 2D digital mammograms and digital breast tomosynthesis images were obtained of the bilateral breasts. 3-D volume images were reconstructed in 4 views at an independent workstation as 1 mm slices through the breasts in both the CC and MLO projections. Density: There are scattered areas of fibroglandular density. No discrete mass or focal asymmetry is identified. No suspicious microcalcifications or foci of architectural distortion are seen. There has been no significant change. This study was interpreted with CAD. IMPRESSION: No mammographic evidence of malignancy. BI-RADS CATEGORY: BI-RADS Category: 1 Negative. Recommendation: Routine Screening Mammogram in 1 Year. Recommended Date: 1 Year. Laterality: Bilateral. MACRO: None Signed by: Juan Luis Grimm 02/17/2024 12:30 PM Dictation workstation: [id number] [facility] Work Phone: Radiology Study observation (narrative) [facility] Work Phone: DBT Breast - bilateralOrdere d By: Juan Luis Grimm on 02-17-2024 [facility] Work Phone: DEXA BONE DENSITYon 02-17-20 DEXA BONE DENSITY Interpreted By: Juan Luis Torres, STUDY: DEXA BONE DUFQSCN21/8/2024 10:37 am INDICATION: Signs/Symptoms:OSTEO. The patient is a 58 y/o year old F. COMPARISON: 01/20/2023 ACCESSION NUMBER(S): [id number] ORDERING CLINICIAN: AGUSTINA STACY TECHNIQUE: DEXA BONE DENSITY FINDINGS: SPINE L1-L4 Bone Mineral Density: 1.255 T-Score 0.5 Z-Score 1.7 Bone Mineral Density change vs baseline: Not reported Bone Mineral Density change vs previous: Not reported LEFT FEMUR -TOTAL Bone Mineral Density: 0.888 T-Score -0.9 Z-Score 0.0 Bone Mineral Density change vs baseline: Not reported Bone Mineral Density change vs previous: Not reported LEFT FEMUR -NECK Bone Mineral Density: 0.780 T-Score -1.9 Z-Score -0.6 RIGHT FEMUR -TOTAL Bone Mineral Density: 0.901 T-Score -0.8 Z-Score 0.1 Bone Mineral Density change vs baseline: Not reported Bone Mineral Density change vs previous: Not reported RIGHT FEMUR -NECK Bone Mineral Density: 0.748 T-Score -2.1 Z-Score -0.8 World Health Organization (WHO) criteria for post-menopausal, Women: Normal: T-score at or above -1 SD Osteopenia: T-score between -1 and -2.5 SD Osteoporosis: T-score at or below -2.5 SD 10-year Fracture Risk: Major Osteoporotic Fracture 10.1 Hip Fracture 1.4 Note: If no FRAX score is reported, it is because: Some T-score for Spine Total or Hip Total or Femoral Neck at or below -2.5 This exam was performed at [facility] on a [employer] Advanced Dexa Unit. IMPRESSION: DEXA: According to World Health Organization criteria, classification is low bone mass (osteopenia) Followup recommended in two years or sooner as clinically warranted. All images and detailed analysis are available on the Radiology PACS. MACRO: None Signed by: Juan Luis Grimm 02/19/2024 10:13 AM Dictation workstation: [id number] [facility] COLONOSCOPYon 02-03-2024 Colonoscopy Table formatting fro m the original result was not included. Impression Two Stacia Isp polyps measuring from 5 mm up to 9 mm in the mid transverse colon and distal transverse colon; performed cold snare removal Findings Two sessile Stacia Isp polyps measuring from 5 mm up to 9 mm in the mid transverse colon and distal transverse colon; performed cold snare with complete en bloc removal and retrieved specimen Recommendation Repeat colonoscopy in 3 years, due: 02/02/2027 Follow up with PCP Indication Colon cancer screening, History of colon polyps Staff Staff Role No Staff Documented Medications meperidine PF (Demerol) injection 25 mg midazolam (Versed) injection 6.5 mg glucagon (Glucagen) injection 1 mg meperidine PF (Demerol) injection 25 mg midazolam PF (Versed) injection 1 mg (Totals for administrations occurring from 1228 to 1300 on 02/03/24) Preprocedure A history and physical has been performed, and patient medication allergies have been reviewed. The patient's tolerance of previous anesthesia has been reviewed. The risks and benefits of the procedure and the sedation options and risks were discussed with the patient and patient's partner. All questions were answered and informed consent obtained. Details of the Procedure The patient underwent moderate sedation, which was administered by the procedural nurse. The patient's blood pressure, ECG, ETCO2, heart rate, level of consciousness, oxygen and respirations were monitored throughout the procedure. A digital rectal exam was performed. A perianal exam was performed. The scope was introduced through the anus and advanced to the terminal ileum. Retroflexion was performed in the rectum. The quality of bowel preparation was evaluated using the [place] Bowel Preparation Scale with scores of: right colon = 3, transverse colon = 3, left colon = 3. The total BBPS score was 9. Bowel prep was adequate. The patient experienced no blood loss. The procedure was not difficult. The patient tolerated the procedure well. There were no apparent adverse events. Events Procedure Events Event Event Time ENDO SCOPE IN TIME 02/03/2024 12:37 PM ENDO CECUM REACHED 02/03/2024 12:46 PM ENDO SCOPE OUT TIME 02/03/2024 12:58 PM Specimens ID Type Source Tests Collected by Time 1 : Tissue COLON - TRANSVERSE POLYP SURGICAL PATHOLOGY EXAM Jluis Silveira RN 02/03/2024 1245 Procedure Location [address] [address] Referring Provider Lamin Redding DO Procedure Provider Lamin Redding DO [facility] Comment on above: Order Comment: 01/01 Colonoscopy studyon 02-03-20 24 Table formatting fro m the original result was not included. Impression Two Stacia Isp polyps measuring from 5 mm up to 9 mm in the mid transverse colon and distal transverse colon; performed cold snare removal Findings Two sessile Stacia Isp polyps measuring from 5 mm up to 9 mm in the mid transverse colon and distal transverse colon; performed cold snare with complete en bloc removal and retrieved specimen Recommendation Repeat colonoscopy in 3 years, due: 02/02/2027 Follow up with PCP Indication Colon cancer screening, History of colon polyps Staff Staff Role No Staff Documented Medications meperidine PF (Demerol) injection 25 mg midazolam (Versed) injection 6.5 mg glucagon (Glucagen) injection 1 mg meperidine PF (Demerol) injection 25 mg midazolam PF (Versed) injection 1 mg (Totals for administrations occurring from 1228 to 1300 on 02/03/24) Preprocedure A history and physical has been performed, and patient medication allergies have been reviewed. The patient's tolerance of previous anesthesia has been reviewed. The risks and benefits of the procedure and the sedation options and risks were discussed with the patient and patient's partner. All questions were answered and informed consent obtained. Details of the Procedure The patient underwent moderate sedation, which was administered by the procedural nurse. The patient's blood pressure, ECG, ETCO2, heart rate, level of consciousness, oxygen and respirations were monitored throughout the procedure. A digital rectal exam was performed. A perianal exam was performed. The scope was introduced through the anus and advanced to the terminal ileum. Retroflexion was performed in the rectum. The quality of bowel preparation was evaluated using the [place] Bowel Preparation Scale with scores of: right colon = 3, transverse colon = 3, left colon = 3. The total BBPS score was 9. Bowel prep was adequate. The patient experienced no blood loss. The procedure was not difficult. The patient tolerated the procedure well. There were no apparent adverse events. Events Procedure Events Event Event Time ENDO SCOPE IN TIME 02/03/2024 12:37 PM ENDO CECUM REACHED 02/03/2024 12:46 PM ENDO SCOPE OUT TIME 02/03/2024 12:58 PM Specimens ID Type Source Tests Collected by Time 1 : Tissue COLON - TRANSVERSE POLYP SURGICAL PATHOLOGY EXAM Jluis Silveira RN 02/03/2024 1245 Procedure Location [address] [facility] [address] [facility] [address] Referring Provider Lamin Redding DO Procedure Provider Lamin Redding DO [facility] Work Phone: [facility] Work Phone: Radiology Study observation (narrative) [facility] Work Phone: Surgical pathology studyon 0 02-03-2024 Surgical pathology study Pathology report.total SEE COMMENT Surgical Pathology Case: [id number] Authorizing Provider: Lamin Redding DO Collected: 02/03/2024 1245 Ordering Location: [facility] Received: 02/03/2024 1720 [facility] Pathologist: Jessika Flowers MD Specimen: COLON - TRANSVERSE POLYP Path report.final diagnosis SEE COMMENT A. COLON - TRANSVERSE POLYP: -- Fragments of tubular adenoma. Laboratory comment By the signature on this report, the individual or group listed as making the Final Interpretation/Diagnosis certifies that they have reviewed this case. Path report.relevant Hx SEE COMMENT Diagnosis codes: Colon cancer screening [Z12.11] History of colon polyps [Z86.010] Path report.gross observation SEE COMMENT Received in formalin, labeled with the patient's name and hospital number and transv polyp, are 2 fragments of dueñas, soft tissue admixed with organic material aggregating to 0.5 x 0.3 x 0.2 cm. The specimen is submitted in toto in one cassette. DMB Normal [facility] Vitamin D 1,25-Dihydroxyon 0 12-05-2023 VIT D 1,25 DIHY 36.6 pg/mL Normal 24.8-81.5 [facility] Comment on above: Result Comment: Perf ormed at: - [facility] [id number] Roll Carrier: Sindhu Weaver MD, Phone: [phone] Performed By: #### L 100.9670, L3300.8660, L501.5870, L501.2986, L500.6490 ####[facility] [address] [place], [address] CBC W/Diff, Automatedon 07-2 -2023 Absolute Lymph 1.17 X10 3/uL Normal 0.83-4.51 [facility] Comment on above: Performed By: #### L 100.0100, L3300.0960, L501.5200, L501.9520, L500.4050 ####[facility] [address] [place], [address] Absolute Neut 3.8 X10 3/uL Normal 2.0-7.7 [facility] Comment on above: Performed By: #### L 100.0100, L3300.0960, L501.5200, L501.9520, L500.4050 ####[facility] [address] [place], [address] Basophils/100 WBC (Bld) 0.8 % Normal 0-1 [facility] Comment on above: Performed By: #### L 100.0100, L3300.0960, L501.5200, L501.9520, L500.4050 ####[facility] [address] [place], [address] Eosinophils/100 WBC (Bld) 2.5 % Normal 0-5 [facility] Comment on above: Performed By: #### L 100.0100, L3300.0960, L501.5200, L501.9520, L500.4050 ####[facility] [address] [place], [address] Erythrocyte distribution width (RBC) [Ratio] 13.4 % Normal 11.6-14.6 [facility] Comment on above: Performed By: #### L 100.0100, L3300.0960, L501.5200, L501.9520, L500.4050 ####[facility] [address] [place], [address] Hematocrit (Bld) [Volume fraction] 41.6 % Normal 37-47 [facility] Comment on above: Performed By: #### L 100.0100, L3300.0960, L501.5200, L501.9520, L500.4050 ####[facility] [address] [place], [address] Hemoglobin (Bld) [Mass/Vol] 13.7 g/dL Normal 12.0-15.0 [facility] Comment on above: Performed By: #### L 100.0100, L3300.0960, L501.5200, L501.9520, L500.4050 ####[facility] [address] [place], [address] IG% 0.300 Normal 0.0-0.9 [facility] Comment on above: Result Comment: IG% - Immature Granulocytes (promyelocytes, myelocytes and metamyelocytes) > 1% indicates that a LEFT SHIFT is Present. Performed By: #### L 100.0100, L3300.0960, L501.5200, L501.9520, L500.4050 ####[facility] [address] [place], [address] Lymphocytes/100 WBC (Bld) 19.9 % Normal 19-41 [facility] Comment on above: Performed By: #### L 100.0100, L3300.0960, L501.5200, L501.9520, L500.4050 ####[facility] [address] [place], [address] MCH (RBC) [Entitic mass] 27.7 pg Normal 27.0-32.0 [facility] Comment on above: Performed By: #### L 100.0100, L3300.0960, L501.5200, L501.9520, L500.4050 ####[facility] [address] [place], [address] MCHC (RBC) [Mass/Vol] 32.9 g/dL Normal 32-36 [facility] Comment on above: Performed By: #### L 100.0100, L3300.0960, L501.5200, L501.9520, L500.4050 ####[facility] [address] [place], [address] MCV (RBC) [Entitic vol] 84.2 fL Normal 81-99 [facility] Comment on above: Performed By: #### L 100.0100, L3300.0960, L501.5200, L501.9520, L500.4050 ####[facility] [address] [place], [address] Monocytes/100 WBC (Bld) 12.1 % High 0-10 [facility] Comment on above: Performed By: #### L 100.0100, L3300.0960, L501.5200, L501.9520, L500.4050 ####[facility] [address] [place], [address] Neutrophils/100 WBC (Bld) 64.4 % Normal 47-70 [facility] Comment on above: Performed By: #### L 100.0100, L3300.0960, L501.5200, L501.9520, L500.4050 ####[facility] [address] [place], [address] Nucleated RBC (Bld) [#/Vol] 0 10*3/uL Normal 0-5 [facility] Comment on above: Performed By: #### L 100.0100, L3300.0960, L501.5200, L501.9520, L500.4050 ####[facility] [address] [place], [address] Platelet mean volume (Bld) [Entitic vol] 9.9 fL Normal 6.2-12.0 [facility] Comment on above: Performed By: #### L 100.0100, L3300.0960, L501.5200, L501.9520, L500.4050 ####[facility] [address] [place], [address] Platelets (Bld) [#/Vol] 266 10*3/uL Normal 150-450 [facility] Comment on above: Performed By: #### L 100.0100, L3300.0960, L501.5200, L501.9520, L500.4050 ####[facility] [address] [place], [address] RBC (Bld) [#/Vol] 4.94 10*6/uL Normal 4.2-5.4 [facility] Comment on above: Performed By: #### L 100.0100, L3300.0960, L501.5200, L501.9520, L500.4050 ####[facility] [address] [place], [address] RDW SD 41.2 fl Normal 35.1-43.9 [facility] Comment on above: Performed By: #### L 100.0100, L3300.0960, L501.5200, L501.9520, L500.4050 ####[facility] [address] [place], [address] WBC (Bld) [#/Vol] 5.9 10*3/uL Normal 4.4-11.0 [facility] Comment on above: Performed By: #### L 100.0100, L3300.0960, L501.5200, L501.9520, L500.4050 ####[facility] [address] [place], [address] Comprehensive Metabolic Prof meon 12-02-2023 Albumin [Mass/Vol] 3.9 g/dL Normal 3.2-5.0 [facility] Comment on above: Performed By: #### L 100.0100, L3300.0960, L501.5200, L501.9520, L500.4050 ####[facility] [address] [place], [address] Albumin/Globulin [Mass ratio] 1.1 {ratio} Normal 0.9-2.4 [facility] Comment on above: Performed By: #### L 100.0100, L3300.0960, L501.5200, L501.9520, L500.4050 ####[facility] [address] [place], [address] ALK P 113 U/L Normal 45-117 [facility] Comment on above: Performed By: #### L 100.0100, L3300.0960, L501.5200, L501.9520, L500.4050 ####[facility] [address] [place], [address] ALT [Catalytic activity/Vol] 36 U/L Normal 13-56 [facility] Comment on above: Performed By: #### L 100.0100, L3300.0960, L501.5200, L501.9520, L500.4050 ####[facility] [address] [place], [address] AST [Catalytic activity/Vol] 30 U/L Normal 15-37 [facility] Comment on above: Performed By: #### L 100.0100, L3300.0960, L501.5200, L501.9520, L500.4050 ####[facility] [address] [place], [address] Bilirubin [Mass/Vol] 0.30 mg/dL Normal 0.20-1.00 [facility] Comment on above: Result Comment: For patients on eltrombopag therapy, use of Dimension [place] TBIL is not recommended. Performed By: #### L 100.0100, L3300.0960, L501.5200, L501.9520, L500.4050 ####[facility] [address] [place], [address] BUN/CRE 21.3 RATIO High 10-20 [facility] Comment on above: Performed By: #### L 100.0100, L3300.0960, L501.5200, L501.9520, L500.4050 ####[facility] [address] [place], [address] CA,Total 9.3 mg/dL Normal 8.5-10.1 [facility] Comment on above: Performed By: #### L 100.0100, L3300.0960, L501.5200, L501.9520, L500.4050 ####[facility] [address] [place], [address] Chloride [Moles/Vol] 101 mmol/L Normal 98-107 [facility] Comment on above: Performed By: #### L 100.0100, L3300.0960, L501.5200, L501.9520, L500.4050 ####[facility] [address] [place], [address] CO2 [Moles/Vol] 26.0 mmol/L Normal 21.0-32.0 [facility] Comment on above: Performed By: #### L 100.0100, L3300.0960, L501.5200, L501.9520, L500.4050 ####[facility] [address] [place], [address] Creatinine [Mass/Vol] 0.70 mg/dL Normal 0.55-1.02 [facility] Comment on above: Result Comment: The validity of the calculated GFR GFRAA in patients over 70 years has not been determined. Clinical correlation is essential. Performed By: #### L 100.0100, L3300.0960, L501.5200, L501.9520, L500.4050 ####[facility] [address] [place], [address] EST GFR - AA 109 mL/min Normal >60 [facility] Comment on above: Result Comment: Afri can Estonian GFR Calc Performed By: #### L 100.0100, L3300.0960, L501.5200, L501.9520, L500.4050 ####[facility] [address] [place], [address] GAP 7 Normal 5-15 [facility] Comment on above: Performed By: #### L 100.0100, L3300.0960, L501.5200, L501.9520, L500.4050 ####[facility] [address] [place], [address] GFR/1.73 sq M.predicted among non-blacks MDRD (S/P/Bld) [Vol rate/Area] 90 mL/min/{1.73_m2} Normal >60 [facility] Comment on above: Result Comment: Non- GFR Calc Performed By: #### L 100.0100, L3300.0960, L501.5200, L501.9520, L500.4050 ####[facility] [address] [place], [address] Globulin (S) [Mass/Vol] 3.6 g/dL Normal 2.2-4.2 [facility] Comment on above: Performed By: #### L 100.0100, L3300.0960, L501.5200, L501.9520, L500.4050 ####[facility] [address] [place], [address] Glucose [Mass/Vol] 89 mg/dL Normal 74-106 [facility] Comment on above: Performed By: #### L 100.0100, L3300.0960, L501.5200, L501.9520, L500.4050 ####[facility] [address] [place], [address] Potassium [Moles/Vol] 3.8 mmol/L Normal 3.5-5.1 [facility] Comment on above: Performed By: #### L 100.0100, L3300.0960, L501.5200, L501.9520, L500.4050 ####[facility] [address] [place], [address] Sodium [Moles/Vol] 134 mmol/L Low 136-145 [facility] Comment on above: Performed By: #### L 100.0100, L3300.0960, L501.5200, L501.9520, L500.4050 ####[facility] [address] [place], [address] T PROT 7.5 g/dL Normal 6.4-8.2 [facility] Comment on above: Performed By: #### L 100.0100, L3300.0960, L501.5200, L501.9520, L500.4050 ####[facility] [address] [place], [address] Urea nitrogen [Mass/Vol] 15 mg/dL Normal 7-18 [facility] Comment on above: Performed By: #### L 100.0100, L3300.0960, L501.5200, L501.9520, L500.4050 ####[facility] [address] [place], [address] Magnesiumon 12-02-2023 Magnesium [Mass/Vol] 2.2 mg/dL Normal 1.6-2.6 [facility] Comment on above: Performed By: #### L 100.0100, L3300.0960, L501.5200, L501.9520, L500.4050 ####[facility] [address] [place], [address] Neurology Visit Reporton Neurology Visit Report [facility] [address], [address] [place] [address] OFFICE VISIT Date of Service: 12/02/23 MR#: [id number] Acct: [id number] Name: SOCORRO GRACE Rep #: [id number] : 1965 Provider: Dr. Slade lugo MD Age/Sex: 58/F Location[place] [facility] [place] [facility] [place] Status: Signed with Addenda ADDENDUM by Dr. Slade Duarte MD on 03/02/24 at 1643 Addendum Addendum (03/02/2024): The patient has developed a left trigeminal neuralgia. Oxcarbazepine 150 mg twice daily was initiated in January 2024. A, CMP and oxcarbazepine level will be checked. 03/02/24 1643 Date Slade Duarte MD cc: * Signed HPI [facility] Chief Complaint: Details: Interim History: Socorro returns for follow-up visit. She has a history of anxiety, hypercholesterolemia, vitamin D deficiency and multiple sclerosis. She was diagnosed with multiple sclerosis in 2006 when she presented with cognitive impairment, left-sided weakness, leg spasms, fatigue and diplopia. Based on MRI findings and her clinical examination, she was diagnosed with multiple sclerosis in 2006 and was started on Avonex. She had flulike symptoms as a side effect to this medication. She was subsequently switched to Copaxone then to Gilenya and then to Tecfidera (and also took the generic form, dimethyl fumarate). In February 2021, she was switched from dimethyl fumarate to Vumerity. She did not had symptomatic side effects to Vumerity however her absolute lymphocyte count was low despite reducing her dose of Vumerity to 231 mg daily. She was subsequently switched from Vumerity to Aubagio in 2021 and has tolerated this well and her last absolute lymphocyte count in May 2023 was 0.72 (low). She ran out of Secure Mentem around the beginning of September 2022. Over the 5 years prior to 2006 she had had intermittent symptoms that included numbness and tingling in the extremities. Since 2006, she has had fluctuating and/or intermittent symptoms that have included diplopia (individual episodes would be pronounced for about 1 day each). She has gait imbalance; this worsened further since 2020. She has urinary frequency and urgency and has had periods of urinary incontinence. In 2021, she began having occasional bowel incontinence. She has disequilibrium that has fluctuated in severity. Hydroxyzine has been of benefit for her disequilibrium. She has chronic fatigue. She does not have a history of visual field deficits but has had chronic impaired visual acuity (her bilateral eye blurred vision fluctuates). Stable bilateral optic pallor (left greater than right, consistent with prior optic neuritis), trace bilateral macular thickening/edema and dry eyes were noted on ophthalmology evaluation on 03/25/22. She has left-sided weakness and that has fluctuated and had worsened since 2020. She has increased tone in the left lower extremity and left upper extremity and has a moderate left foot drop with left calf contracture and hypertonic curling of the toes of the left foot and contracture of the left arm at the elbow. She has a left AFO. Orphenadrine and cyclobenzaprine are of modest benefit for her left-sided hypertonia. She ambulates independently though her gait is unsteady. She reported that the occurrences of diplopia/skewed vision impede her ability to ambulate. She has prism glasses. Physical therapy and occupational therapy were of some benefit. No significant worsening of her multiple sclerosis symptoms has been noted over recent months. Chiropractic therapy which she receives about once per month has been of benefit. She has chronic low back pain. She has had left-sided arm and leg vague pain for which gabapentin is of benefit. Baclofen was not a sustained benefit for her muscle spasms. Tizanidine, tried in the past, was sedating. She has had nearly daily headaches since childhood that she attributes to multiple allergies including dust allergies. The headaches are mild frontal headaches. She does not have associated photophobia, phonophobia or nausea. She had taken alprazolam and buspirone in the past. An office note from her neurologist reported that neuropsychological evaluation (2013) revealed impaired manual dexterity, weak executive control of new learning and retrieval memory, (disruption of frontal lobe circuits). Difficulty recalling recent conversations is due to poor verification of the products of memory search. A B12 injection was not of benefit for her fatigue. IV corticosteroid was tried in the past for multiple sclerosis exacerbations; these were not well-tolerated (she experienced bloating, dyspepsia and oral thrush). A course of prednisone in 2020 was not of benefit for her various multiple sclerosis symptoms and caused gastrointestinal side effects. Prior use of meclizine was not of benefit for her vertigo/disequilibrium. She tried amantadine in t (more content not included)... Normal [facility] Thyroid Stim Hormone (TSH)on 12-02-2023 TSH 1.99 uIU/mL Normal 0.358-3.74 [facility] Comment on above: Performed By: #### L 100.0100, L3300.0960, L501.5200, L501.9520, L500.4050 ####[facility] [address] [place], [address] Thyrotropinon 09-30-2023 TSH Qn 2.08 m[IU]/L Normal 0.44-3.98 [facility] Comment on above: Order Comment: TSH t esting is performed using different testing methodology at [facility] than at other [facility]. Direct result comparisons should only be made within the same method. Performed By: #### 3 016-3 #### MCKEE FAIZA ([id number]) [facility] ([facility]) [address] [place] [address] UA DIP, URINE (POC)on 2023 BILIRUBIN UA (POCT) Negative Negative [facility] CLARITY UA (POCT) Clear [facility] COLOR UA (POCT) Yellow [facility] GLUCOSE UA (POCT) Negative Negative mg/dL [facility] Hemoglobin Ql (U) Negative Negative [facility] KETONE UA (POCT) Negative Negative mg/dL [facility] LEUKOCYTES UA (POCT) Negative Negative [facility] NITRITE UA (POCT) Negative Negative [facility] PH UA (POCT) 6.5 4.5 - 8.[address] [facility] Protein Ql (U) Negative Negative mg/dL [facility] SPECIFIC GRAVITY UA (POCT) 1.015 1.005 - 1.[address] [facility] UROBILINOGEN UA (POCT) 0.2 E.U./dL Deneen l E.U./dL [facility] Basophil percentageOrdered B y: Slade Duarte on 08-07-2023 Sodium [Moles/Vol] 141 mmol/L 136-145 [facility] Basic metabolic 2000 panelon 07-28-2023 Anion gap [Moles/Vol] 12 mmol/L Normal 9-18 [facility] Comment on above: Order Comment: Speci men Type: SWAB OF INTERNAL NOSE Ordering Facility: [facility] Address: [address] [place] [address] Performed By: #### S APCR #### [facility] CLIA [id number] [address] [place] [address] [place] Calcium [Mass/Vol] 9.3 mg/dL Normal 8.5-10.2 [facility] Comment on above: Order Comment: Speci men Type: SWAB OF INTERNAL NOSE Ordering Facility: [facility] Address: [address] [place] [address] Performed By: #### S APCR #### [facility] CLIA [id number] [address] [place] [address] [place] Chloride [Moles/Vol] 106 mmol/L High 97-105 [facility] Comment on above: Order Comment: Speci men Type: SWAB OF INTERNAL NOSE Ordering Facility: [facility] Address: [address] [place] [address] Performed By: #### S APCR #### [facility] CLIA [id number] [address] [place] [address] [place] CO2 [Moles/Vol] 21 mmol/L Low 22-30 [facility] Comment on above: Order Comment: Speci men Type: SWAB OF INTERNAL NOSE Ordering Facility: [facility] Address: [address] [place] [address] Performed By: #### S APCR #### [facility] CLIA [id number] [address] [place], [place] [id number] [place] Creatinine [Mass/Vol] 0.55 mg/dL Low 0.58-0.96 [facility] Comment on above: Order Comment: Abdirahman munoz Type: SWAB OF INTERNAL NOSE Ordering Facility: [facility] Address: [address] [place] [address] Performed By: #### S APCR #### [facility] CLIA [id number] [address] [place] [address] [place] Creatinine and Glomerular filtration rate.predicted panel (S/P/Bld) 106 mL/min/1.73m??? Normal >=60 [facility] Comment on above: Order Comment: Abdirahman munoz Type: SWAB OF INTERNAL NOSE Ordering Facility: [facility] Address: [address] [place] [address] Result Comment: Tiffany mated Glomerular Filtration Rate (eGFR) is calculated using the 2020 CKD-EPI creatinine equation. This equation utilizes serum creatinine, sex, and age as parameters. The creatinine assay has traceable calibration to isotope dilution-mass spectrometry. Refer to KDIGO guidelines for clinical interpretation. In patients with unstable renal function, e.g. those with acute kidney injury, the eGFR may not accurately reflect actual GFR. Performed By: #### S APCR #### [facility] CLIA [id number] [address] [place] [address] [place] Glucose [Mass/Vol] 133 mg/dL High 74-99 [facility] Comment on above: Order Comment: Abdirahman munoz Type: SWAB OF INTERNAL NOSE Ordering Facility: [facility] Address: [address] [place] [address] Result Comment: The [place] Diabetes Association (ADA) provides guidance for cutoff values for fasting glucose and random glucose. The ADA defines fasting as no caloric intake for at least 8 hours. Fasting plasma glucose results between 100 to 125 mg/dL indicate increased risk for diabetes (prediabetes). Fasting plasma glucose results greater than or equal to 126 mg/dL meet the criteria for diagnosis of diabetes. In the absence of unequivocal hyperglycemia, results should be confirmed by repeat testing. In a patient with classic symptoms of hyperglycemia or hyperglycemic crisis, random plasma glucose results greater than or equal to 200 mg/dL meet the criteria for diagnosis of diabetes. Reference: Standards of Medical Care in Diabetes 2016, [place] Diabetes Association. Diabetes Care. 2016.39(Suppl 1). Performed By: #### S APCR #### [facility] CLIA [id number] [address] [place] [address] [place] Potassium [Moles/Vol] 4.8 mmol/L Normal 3.7-5.1 [facility] Comment on above: Order Comment: Speci men Type: SWAB OF INTERNAL NOSE Ordering Facility: [facility] Address: [address] [place] [address] Performed By: #### S APCR #### [facility] CLIA [id number] [address] [place] [address] [place] Sodium [Moles/Vol] 139 mmol/L Normal 136-144 [facility] Comment on above: Order Comment: Speci men Type: SWAB OF INTERNAL NOSE Ordering Facility: [facility] Address: [address] [place] [address] Performed By: #### S APCR #### [facility] CLIA [id number] [address] [place] [address] [place] Urea nitrogen [Mass/Vol] 12 mg/dL Normal 7-21 [facility] Comment on above: Order Comment: Speci men Type: SWAB OF INTERNAL NOSE Ordering Facility: [facility] Address: [address] [place] [address] Performed By: #### S APCR #### [facility] CLIA [id number] [address] [place] [address] [place] CASE MANAGEMon 07-28-2023 CASE MANAGEM HNO ID: [id number] Author: MALISSA LYNN RN Service: ? Author Type: Registered Nurse Type: Care Mgt Progress Note Filed: 07/28/2023 13:18 Note Text: CARE MANAGEMENT DISCHARGE NOTE SERVICE DATE: July 28, 2023 SERVICE TIME: 1:16 PM Admission Date: 07/26/2023 LOS: 2 days Discharge Arrangement Discharge Arrangement: Home with Self Care Services Arranged None Provider Name: NA Phone: NA Caregiver Assessment Caregiver is ready, willing and able to meet the patient's needs as recommended by the inter-professional team: No Caregiver needed Name of Caregiver: Family Transportation Arrangements Transportation Arrangements: Car Date of Trip: 07/28/23 Time of Trip: 1700 Destination: Pts' home Handoff Communication: Handoff to: Primary Care Physician Primary Care Physician Name/Phone: Agustina Stacy MD Additional Information: NA SIGNATURE: Malissa Lynn RN,BSN, ACM PATIENT NAME: Socorro Grace DATE: July 28, 2023 TIME: 1:16 PM CONTACT #: [phone] [facility] 07-28-2023 [facility] HNO ID: [id number] Author: MARIUSZ STREET JR, MD Service: Hospital Medicine Author Type: Physician Type: Discharge Summary Filed: 07/28/2023 12:53 Note Text: DISCHARGE SUMMARY PATIENT NAME: Socorro Grace Code Status: Not on file Highest Readmission Risk Score: 11 The 30 day readmissions risk score is derived from an internally validated risk model which evaluates patient level characteristics, utilization history, medication orders and lab results up until the day of discharge. Patients with a score of 40 or above are considered highest risk for readmission. Specific patient level drivers will be listed at the bottom of the summary. Admission Information Admission Information ADMIT DATE: 07/26/2023 DISCHARGE DATE: 07/28/2023 MY DOCTORS AND MEDICAL TEAM: My Main Hospital Doctor: Mariusz Street Primary Care Provider: Agustina Stacy MD My Medical Team Members: Treatment Team: Attending Provider: Mariusz Street Jr., MD MY CONDITION AT DISCHARGE: Stable REASON I WAS IN THE HOSPITAL: Severe Headache, Hyponatremia SUMMARY OF WHAT HAPPENED WHILE I WAS IN THE HOSPITAL: You were admitted to the hospital on 07/26/23 with a very low Sodium level and a severe headache, consistent with a migraine headache. The Desmopressin was discontinued and your Sodium level corrected on its own. This should not be restarted. You were given IV Headache medications and by 07/27, your headache had resolved. You were discharged to home on 07/28/23. Desmopressin was discontinued. Imitrex 100 mg tabs, take one tab as needed for a migraine headache was ordered. You may take a second dose 2 hours later if the headache persists but you should not take more than 2 tabs in 24 hours. A Urology appointment was requested for frequent urination. Follow-up with your PCP in 1-2 weeks. OTHER PROBLEMS/DIAGNOSIS: Principal Problem (Resolved): Hyponatremia Active Problems: Migraine headache Internuclear ophthalmoplegia MS (multiple sclerosis) (HCC) Hemiparesis, left (HCC) Stress incontinence Hypophosphatemia OPERATIONS PERFORMED WHILE IN THE HOSPITAL: None IMPORTANT TEST/PROCEDURES: No procedures performed TEST RESULTS NOT AVAILABLE AT THIS TIME: No pending results Discharge Disposition Discharge Disposition: Home With Self Care Activity When You Leave the Hospital Resume pre-hospital activity Diet Instructions Resume your pre-hospital diet Follow Up Appointments Follow-Up Appointment 1-2 weeks (appointment requested) When: In: Agustina Stacy MD [phone] [address] [place] [address] PCP Requested Referral Follow-Up Appointment 2-4 weeks (appointment requested) With: Urology When: In: Additional Provider to Provider Information: This is a 57 year old female, with PMH of Multiple Sclerosis, Urinary Frequency, Neuropathy and SOCORRO/Depression, who presented to the [place] ED on 07/26/23 with a severe headache. She reported a several week history of headaches but on 07/25/23, she developed a constant, severe 10/10, throbbing bitemporal headache with accompanying photophobia and presented for evaluation. She noted no change in her chronic left sided weakness due to MS. She had been having difficulty with frequent urination and had just been restarted on Desmopressin 3 days prior by Neurology. She had no fevers. She noted a strong family history of migraine headaches. In the ED, she was afebrile, HR 92 nad BP 171/112. Na 120, K 3.9, Cr 0.5, WBC 8.2, Hgb 14.4. Urine micro showed 6-10 WBC, 0-3 RBC, few epi, few bacti, and few yeast. COVID-19, Influenza A/B and RSV tests were negative. CT Brain showed known demyelinating white matter lesions. CTA Head/Neck showed no evidence of a proximal/large artery occlusion or high grade stenosis, dissection or sizable/large aneurysm. She received IVFs, Reglan, Benadryl, Toradol and po Fluconazole prior to transfer to [facility] for Hyponatremia and [place]. The Desmopressin was discontinued and her Na self corrected over the next few days. Na 139 on the day of discharge. She was initially started on IV Rocephin, but this was discontinued when the Urine Culture was negative. She was treated with IV Dexamethasone, IV Magnesium, IV Toradol, IV Benadryl and IV Compazine for her headache. By 07/27, her headache had resolved and she felt ready for discharge. She was discharged to home on 07/28/23. Desmopressin was discontinued. Imitrex 100 mg tabs, one tab as needed for a migraine headache was ordered. May take a second dose 2 hours later if the headache persists but should not take more than 2 tabs in 24 hours. A Urology appointment was requested for frequent urination. She should follow-up with her PCP in 1-2 weeks. Active Hospital Problems as of 07/28/2023 Noted - Resolved [facility] Hemiparesis, left (HCC) 07/26/2023 - Present Yes Hypophosphatemia 07/27/2023 - Present Yes Internuclear opht (more content not included)... Normal [facility] Renal function 2000 panelon 07-27-2023 Albumin [Mass/Vol] 4.2 g/dL Normal 3.9-4.9 [facility] Comment on above: Order Comment: Speci men Type: SWAB OF INTERNAL NOSE Ordering Facility: [facility] Address: [address] [place] [address] Performed By: #### S APCR #### [facility] CLIA [id number] [address] [place] [address] [place] Anion gap [Moles/Vol] 10 mmol/L Normal - [facility] Comment on above: Order Comment: Speci men Type: SWAB OF INTERNAL NOSE Ordering Facility: [facility] Address: [address] [place] [address] Performed By: #### S APCR #### [facility] CLIA [id number] [address] [place] [address] [place] Calcium [Mass/Vol] 8.6 mg/dL Normal 8.5-10.2 [facility] Comment on above: Order Comment: Speci men Type: SWAB OF INTERNAL NOSE Ordering Facility: [facility] Address: [address] [place] [address] Performed By: #### S APCR #### [facility] CLIA [id number] [address] [place] [address] [place] Chloride [Moles/Vol] 106 mmol/L High 97-105 [facility] Comment on above: Order Comment: Speci men Type: SWAB OF INTERNAL NOSE Ordering Facility: [facility] Address: [address] [place] [address] Performed By: #### S APCR #### [facility] CLIA [id number] [address] [place] [address] [place] CO2 [Moles/Vol] 21 mmol/L Low 22-30 [facility] Comment on above: Order Comment: Speci men Type: SWAB OF INTERNAL NOSE Ordering Facility: [facility] Address: [address] [place] [address] Performed By: #### S APCR #### [facility] CLIA [id number] [address] [place] [address] [place] Creatinine [Mass/Vol] 0.66 mg/dL Normal 0.58-0.96 [facility] Comment on above: Order Comment: Speci men Type: SWAB OF INTERNAL NOSE Ordering Facility: [facility] Address: [address] [place] [address] Performed By: #### S APCR #### [facility] CLIA [id number] [address] [place] [address] [place] Creatinine and Glomerular filtration rate.predicted panel (S/P/Bld) 101 mL/min/1.73m??? Normal >=60 [facility] Comment on above: Order Comment: Speci men Type: SWAB OF INTERNAL NOSE Ordering Facility: [facility] Address: [address] [place] [address] Result Comment: Tiffany mated Glomerular Filtration Rate (eGFR) is calculated using the 2020 CKD-EPI creatinine equation. This equation utilizes serum creatinine, sex, and age as parameters. The creatinine assay has traceable calibration to isotope dilution-mass spectrometry. Refer to KDIGO guidelines for clinical interpretation. In patients with unstable renal function, e.g. those with acute kidney injury, the eGFR may not accurately reflect actual GFR. Performed By: #### S APCR #### [facility] CLIA [id number] [address] [place] [address] [place] Glucose [Mass/Vol] 102 mg/dL High 74-99 [facility] Comment on above: Order Comment: Speci men Type: SWAB OF INTERNAL NOSE Ordering Facility: [facility] Address: [address] [place] [address] Result Comment: The [place] Diabetes Association (ADA) provides guidance for cutoff values for fasting glucose and random glucose. The ADA defines fasting as no caloric intake for at least 8 hours. Fasting plasma glucose results between 100 to 125 mg/dL indicate increased risk for diabetes (prediabetes). Fasting plasma glucose results greater than or equal to 126 mg/dL meet the criteria for diagnosis of diabetes. In the absence of unequivocal hyperglycemia, results should be confirmed by repeat testing. In a patient with classic symptoms of hyperglycemia or hyperglycemic crisis, random plasma glucose results greater than or equal to 200 mg/dL meet the criteria for diagnosis of diabetes. Reference: Standards of Medical Care in Diabetes 2016, [place] [employer] Association. Diabetes Care. 2016.39(Suppl 1). Performed By: #### S APCR #### [facility] CLIA [id number] [address] [place] [address] [place] Phosphate [Mass/Vol] 2.6 mg/dL Low 2.7-4.8 [facility] Comment on above: Order Comment: Speci men Type: SWAB OF INTERNAL NOSE Ordering Facility: [facility] Address: [address] [place] [address] Performed By: #### S APCR #### [facility] CLIA [id number] [address] [place] [address] [place] Potassium [Moles/Vol] 4.1 mmol/L Normal 3.7-5.1 [facility] Comment on above: Order Comment: Speci men Type: SWAB OF INTERNAL NOSE Ordering Facility: [facility] Address: [address] [place] [address] Performed By: #### S APCR #### [facility] CLIA [id number] [address] [place] [address] [place] Sodium [Moles/Vol] 137 mmol/L Normal 136-144 [facility] Comment on above: Order Comment: Speci men Type: SWAB OF INTERNAL NOSE Ordering Facility: [facility] Address: [address] [place] [address] Performed By: #### S APCR #### [facility] CLIA [id number] [address] [place] [address] [place] Urea nitrogen [Mass/Vol] 11 mg/dL Normal 7-21 [facility] Comment on above: Order Comment: Speci men Type: SWAB OF INTERNAL NOSE Ordering Facility: [facility] Address: [address] [place] [address] Performed By: #### S APCR #### [facility] CLIA [id number] [address] [place] [address] [place] Sodium SerPl-sCncon 07-27-19 24 Sodium [Moles/Vol] 138 mmol/L Normal 136-144 [facility] Comment on above: Order Comment: Speci men Type: BLOOD SPECIMEN Ordering Facility: [facility] Address: [address] [place] [address] Performed By: #### 2 951-2 #### [facility] CLIA [id number] [address] [place] [address] [place] Sodium [Moles/Vol] 136 mmol/L Normal 136-144 [facility] Comment on above: Order Comment: Speci men Type: BLOOD SPECIMEN Ordering Facility: [facility] Address: [address] [place] [address] Performed By: #### 2 951-2 #### [facility] CLIA [id number] [address] [place] [address] [facility] ALLIED HEALTHon 07-26-2023 ALLIED HEALTH HNO ID: [id number] Author: MARLEE SILVESTRE RT(Elidia) Service: ? Author Type: Rn Ccu Type: Allied Health Filed: 07/26/2023 08:01 Note Text: Radiology Service Progress Note DATE OF SERVICE: July 26, 2023 TIME: 8:01 AM PATIENT IDENTITY VERIFICATION COMPLETED USING TWO (2) STANDARD IDENTIFIERS: Name and Date of confirmed by patient verbally. FALL SCREENING: Has the patient had 2 falls in the last year or 1 fall with injury or currently using an Ambulatory Assistive Device (Walker, Cane, Wheelchair, Crutches, etc.)? Emergency Room Patient: Screened in ED PATIENT GENDER DATA: Female. status: : No status: NO. PATIENT RELEVANT IMPLANT DATA REVIEWED: Not Applicable PATIENT PRESENTS WITH AN IMPLANTABLE OR ATTACHED FOREIGN LANGUAGE STENOGRAPHER: No ALLERGIES: Reviewed and unchanged CONTRAST ALLERGY: NO. EXAM: CT -CONTRAST INDUCED NEPHROPATHY RISK FACTORS: Not applicable CREATININE: Creatinine Date Value Ref Range Status 07/26/2023 0.43 (L) 0.58 - 0.96 mg/dL Final 02/07/2021 0.61 0.6 - 1.3 MG/DL Final 11/28/2017 0.63 0.51 - 0.95 mg/dL Final Estimated Glomerular Filtration Rate Date Value Ref Range Status 07/26/2023 112 >=60 mL/min/1.73m? Final Comment: Estimated Glomerular Filtration Rate (eGFR) is calculated using the 2020 CKD-EPI creatinine equation. This equation utilizes serum creatinine, sex, and age as parameters. The creatinine assay has traceable calibration to isotope dilution-mass spectrometry. Refer to KDIGO guidelines for clinical interpretation. In patients with unstable renal function, e.g. those with acute kidney injury, the eGFR may not accurately reflect actual GFR. eGFR- Date Value Ref Range Status 04/10/2017 >60 Final P.O.C.T. RESULTS: POC done: Yes, See Lab Tab July 26, 2023 TREATMENT: N/A PERIPHERAL IV DATA: Inpatient - refer to LDA documentation RADIOLOGY DEPARTMENT: CT; Exam(s) Completed: Brain , CTA Brain , and CTA Neck SIGNATURE: Marlee Giovanny, RT(R) PATIENT NAME: Socorro Grace DATE: July 26, 2023 TIME: 8:01 AM Normal [facility] Bacteria Ur Culton Bacteria identified Cx Nom (U) CULTURE, URINE: No growth (<1,000 CFU/ml) Normal [facility] Comment on above: Performed By: #### S APCR #### [facility] CLIA [id number] [address] [facility] [place] [address] [place] Bacteria identified Cx Nom (U) CULTURE, URINE: No growth (<1,000 CFU/ml) Normal [facility] Comment on above: Performed By: #### 3 5678-2 #### [facility] CLIA [id number] [address] [place] [address] [place] Basic metabolic 2000 panelon 07-26-2023 Anion gap [Moles/Vol] 11 mmol/L Normal 9-18 [facility] Comment on above: Order Comment: Speci men Type: BLOOD SPECIMEN Ordering Facility: [facility] Address: [address] [place] [address] Performed By: #### 3 3959-8, 308-1, , 1987-09 #### [facility] CLIA [id number] [address] [place] [address] [place] Calcium [Mass/Vol] 8.3 mg/dL Low 8.5-10.2 [facility] Comment on above: Order Comment: Speci men Type: BLOOD SPECIMEN Ordering Facility: [facility] Address: [address] [place] [address] Performed By: #### 3 3959-8, 308-1, 63408-3, 1987-09 #### [facility] CLIA [id number] [address] [place] [address] [place] Chloride [Moles/Vol] 99 mmol/L Normal 97-105 [facility] Comment on above: Order Comment: Speci men Type: BLOOD SPECIMEN Ordering Facility: [facility] Address: [address] [place] [address] Performed By: #### 3 3959-8, 3083-05, , 1987-09 #### [facility] CLIA [id number] [address] [place] [address] [place] CO2 [Moles/Vol] 20 mmol/L Low 22-30 [facility] Comment on above: Order Comment: Abdirahman munoz Type: BLOOD SPECIMEN Ordering Facility: [facility] Address: [address] [place] [address] Performed By: #### 3 3959-8, 3083-05, , 1987-09 #### [facility] CLIA [id number] [address] [place] [address] [place] Creatinine [Mass/Vol] 0.54 mg/dL Low 0.58-0.96 [facility] Comment on above: Order Comment: Abdirahman munoz Type: BLOOD SPECIMEN Ordering Facility: [facility] Address: [address] [place] [address] Performed By: #### 3 3959-8, 3083-05, , 1987-09 #### [facility] CLIA [id number] [address] STATES OF [facility] Creatinine and Glomerular filtration rate.predicted panel (S/P/Bld) 106 mL/min/1.73m??? Normal >=60 [facility] Comment on above: Order Comment: Abdirahman munoz Type: BLOOD SPECIMEN Ordering Facility: [facility] Address: [address] [place] [address] Result Comment: Tiffany mated Glomerular Filtration Rate (eGFR) is calculated using the 2020 CKD-EPI creatinine equation. This equation utilizes serum creatinine, sex, and age as parameters. The creatinine assay has traceable calibration to isotope dilution-mass spectrometry. Refer to KDIGO guidelines for clinical interpretation. In patients with unstable renal function, e.g. those with acute kidney injury, the eGFR may not accurately reflect actual GFR. Performed By: #### 3 3959-8, 3083-05, , 1987-09 #### [facility] CLIA [id number] [address] [place] [address] [place] Glucose [Mass/Vol] 108 mg/dL High 74-99 [facility] Comment on above: Order Comment: Speci men Type: BLOOD SPECIMEN Ordering Facility: [facility] Address: [address] [place], [place] [address] Result Comment: The [place] Diabetes Association (ADA) provides guidance for cutoff values for fasting glucose and random glucose. The ADA defines fasting as no caloric intake for at least 8 hours. Fasting plasma glucose results between 100 to 125 mg/dL indicate increased risk for diabetes (prediabetes). Fasting plasma glucose results greater than or equal to 126 mg/dL meet the criteria for diagnosis of diabetes. In the absence of unequivocal hyperglycemia, results should be confirmed by repeat testing. In a patient with classic symptoms of hyperglycemia or hyperglycemic crisis, random plasma glucose results greater than or equal to 200 mg/dL meet the criteria for diagnosis of diabetes. Reference: Standards of Medical Care in Diabetes 2016, [place] [employer]. Diabetes Care. 2016.39(Suppl 1). Performed By: #### 3 3959-8, 3084-1, 15779-2, 1987-09 #### [facility] CLIA [id number] [address] [place] [address] [place] Potassium [Moles/Vol] Normal [facility] Comment on above: Order Comment: Abdirahman munoz Type: BLOOD SPECIMEN Ordering Facility: [facility] Address: [address] [place], [place] [address] Result Comment: Unab le to assay due to interference from hemolysis. Suggest reorder as clinically indicated. Performed By: #### 3 3959-8, 3084-1, , 1987-09 #### [facility] CLIA [id number] [address] [place] [address] [place] Sodium [Moles/Vol] 130 mmol/L Low 136-144 [facility] Comment on above: Order Comment: Abdirahman munoz Type: BLOOD SPECIMEN Ordering Facility: [facility] Address: [address] [place], [place] [address] Performed By: #### 3 3959-8, 3084-1, , 1987-09 #### [facility] CLIA [id number] [address] [place] [address] [place] Urea nitrogen [Mass/Vol] 7 mg/dL Normal 7-21 [facility] Comment on above: Order Comment: Abdirahman munoz Type: BLOOD SPECIMEN Ordering Facility: [facility] Address: [address] [place] [address] Performed By: #### 3 3959-8, 3084-1, 80707-5, 1987- #### [facility] CLIA [id number] [address] [place] [address] [place] Anion gap [Moles/Vol] 14 mmol/L Normal 9-18 [facility] Comment on above: Order Comment: Speci men Type: BLOOD SPECIMEN Ordering Facility: [facility] Address: [address] [place] [address] Performed By: #### 2 4321-2 #### [facility] CLIA [id number] [address] [place] [address] [place] Calcium [Mass/Vol] 8.7 mg/dL Normal 8.5-10.2 [facility] Comment on above: Order Comment: Speci men Type: BLOOD SPECIMEN Ordering Facility: [facility] Address: [address] [place] [address] Performed By: #### 2 4321-2 #### [facility] CLIA [id number] [address] [place] [address] [place] Chloride [Moles/Vol] 85 mmol/L Low 97-105 [facility] Comment on above: Order Comment: Speci men Type: BLOOD SPECIMEN Ordering Facility: [facility] Address: [address] [place] [address] Performed By: #### 2 4321-2 #### [facility] CLIA [id number] [address] [place] [address] [place] CO2 [Moles/Vol] 21 mmol/L Low 22-30 [facility] Comment on above: Order Comment: Speci men Type: BLOOD SPECIMEN Ordering Facility: [facility] Address: [address] [place] [address] Performed By: #### 2 4321-2 #### [facility] CLIA [id number] [address] [place] [address] [place] Creatinine [Mass/Vol] 0.47 mg/dL Low 0.58-0.96 [facility] Comment on above: Order Comment: Abdirahman munoz Type: BLOOD SPECIMEN Ordering Facility: [facility] Address: [address] [place] [address] Performed By: #### 2 4321-2 #### [facility] CLIA [id number] [address] [place] [address] [place] Creatinine and Glomerular filtration rate.predicted panel (S/P/Bld) 110 mL/min/1.73m??? Normal >=60 [facility] Comment on above: Order Comment: Abdirahman munoz Type: BLOOD SPECIMEN Ordering Facility: [facility] Address: [address] [place] [address] Result Comment: Tiffany mated Glomerular Filtration Rate (eGFR) is calculated using the 2020 CKD-EPI creatinine equation. This equation utilizes serum creatinine, sex, and age as parameters. The creatinine assay has traceable calibration to isotope dilution-mass spectrometry. Refer to KDIGO guidelines for clinical interpretation. In patients with unstable renal function, e.g. those with acute kidney injury, the eGFR may not accurately reflect actual GFR. Performed By: #### 2 4321-2 #### [facility] CLIA [id number] [address] [place], [place] [address] [place] Glucose [Mass/Vol] 101 mg/dL High 74-99 [facility] Comment on above: Order Comment: Abdirahman munoz Type: BLOOD SPECIMEN Ordering Facility: [facility] Address: [address] [place] [address] Result Comment: The [place] Diabetes Association (ADA) provides guidance for cutoff values for fasting glucose and random glucose. The ADA defines fasting as no caloric intake for at least 8 hours. Fasting plasma glucose results between 100 to 125 mg/dL indicate increased risk for diabetes (prediabetes). Fasting plasma glucose results greater than or equal to 126 mg/dL meet the criteria for diagnosis of diabetes. In the absence of unequivocal hyperglycemia, results should be confirmed by repeat testing. In a patient with classic symptoms of hyperglycemia or hyperglycemic crisis, random plasma glucose results greater than or equal to 200 mg/dL meet the criteria for diagnosis of diabetes. Reference: Standards of Medical Care in Diabetes 2016, [place] [employer]. Diabetes Care. 2016.39(Suppl 1). Performed By: #### 2 4321-2 #### [facility] CLIA [id number] [address] [place] [address] [place] Potassium [Moles/Vol] 3.9 mmol/L Normal 3.7-5.1 [facility] Comment on above: Order Comment: Speci men Type: BLOOD SPECIMEN Ordering Facility: [facility] Address: [address] [place] [address] Performed By: #### 2 4321-2 #### [facility] CLIA [id number] [address] [place] [address] [place] Sodium [Moles/Vol] 120 mmol/L Low 136-144 [facility] Comment on above: Order Comment: Speci men Type: BLOOD SPECIMEN Ordering Facility: [facility] Address: [address] [place] [address] Performed By: #### 2 4321-2 #### [facility] CLIA [id number] [address] [place] [address] [place] Urea nitrogen [Mass/Vol] 4 mg/dL Low 7-21 [facility] Comment on above: Order Comment: Speci men Type: BLOOD SPECIMEN Ordering Facility: [facility] Address: [address] [place] [address] Performed By: #### 2 4321-2 #### [facility] CLIA [id number] [address] [place] [address] [place] Anion gap [Moles/Vol] 17 mmol/L Normal 9-18 [facility] Comment on above: Order Comment: Speci men Type: BLOOD SPECIMEN Ordering Facility: [facility] Address: [address] [place] [address] Performed By: #### 2 4321-2 #### [facility] CLIA [id number] [address] [place] [address] [place] Calcium [Mass/Vol] 9.1 mg/dL Normal 8.5-10.2 [facility] Comment on above: Order Comment: Speci men Type: BLOOD SPECIMEN Ordering Facility: [facility] Address: [address] [place] [address] Performed By: #### 2 4321-2 #### [facility] CLIA [id number] [address] [place] [address] [place] Chloride [Moles/Vol] 87 mmol/L Low 97-105 [facility] Comment on above: Order Comment: Speci men Type: BLOOD SPECIMEN Ordering Facility: [facility] Address: [address] [place] [address] Performed By: #### 2 4321-2 #### [facility] CLIA [id number] [address] [place] [address] [place] CO2 [Moles/Vol] 19 mmol/L Low 22-30 [facility] Comment on above: Order Comment: Speci men Type: BLOOD SPECIMEN Ordering Facility: [facility] Address: [address] [place] [address] Performed By: #### 2 4321-2 #### [facility] CLIA [id number] [address] [place] [address] [place] Creatinine [Mass/Vol] 0.43 mg/dL Low 0.58-0.96 [facility] Comment on above: Order Comment: Speci men Type: BLOOD SPECIMEN Ordering Facility: [facility] Address: [address] [place] [address] Performed By: #### 2 4321-2 #### [facility] CLIA [id number] [address] [place] [address] [place] Creatinine and Glomerular filtration rate.predicted panel (S/P/Bld) 112 mL/min/1.73m??? Normal >=60 [facility] Comment on above: Order Comment: Speci men Type: BLOOD SPECIMEN Ordering Facility: [facility] Address: [address] [place] [address] Result Comment: Tiffany mated Glomerular Filtration Rate (eGFR) is calculated using the 2020 CKD-EPI creatinine equation. This equation utilizes serum creatinine, sex, and age as parameters. The creatinine assay has traceable calibration to isotope dilution-mass spectrometry. Refer to KDIGO guidelines for clinical interpretation. In patients with unstable renal function, e.g. those with acute kidney injury, the eGFR may not accurately reflect actual GFR. Performed By: #### 2 4321-2 #### [facility] CLIA [id number] [address] [place] [address] [place] Glucose [Mass/Vol] 110 mg/dL High 74-99 [facility] Comment on above: Order Comment: Abdirahman munoz Type: BLOOD SPECIMEN Ordering Facility: [facility] Address: [address] [place] [address] Result Comment: The [place] Diabetes Association (ADA) provides guidance for cutoff values for fasting glucose and random glucose. The ADA defines fasting as no caloric intake for at least 8 hours. Fasting plasma glucose results between 100 to 125 mg/dL indicate increased risk for diabetes (prediabetes). Fasting plasma glucose results greater than or equal to 126 mg/dL meet the criteria for diagnosis of diabetes. In the absence of unequivocal hyperglycemia, results should be confirmed by repeat testing. In a patient with classic symptoms of hyperglycemia or hyperglycemic crisis, random plasma glucose results greater than or equal to 200 mg/dL meet the criteria for diagnosis of diabetes. Reference: Standards of Medical Care in Diabetes 2016, [place] [employer] Association. Diabetes Care. 2016.39(Suppl 1). Performed By: #### 2 4321-2 #### [facility] CLIA [id number] [address] [place] [address] [place] Potassium [Moles/Vol] 4.1 mmol/L Normal 3.7-5.1 [facility] Comment on above: Order Comment: Abdirahman munoz Type: BLOOD SPECIMEN Ordering Facility: [facility] Address: [address] [place], [place] [address] Performed By: #### 2 4321-2 #### [facility] CLIA [id number] [address] [place] [address] [place] Sodium [Moles/Vol] 123 mmol/L Low 136-144 [facility] Comment on above: Order Comment: Abdirahman munoz Type: BLOOD SPECIMEN Ordering Facility: [facility] Address: [address] [place] [address] Performed By: #### 2 4321-2 #### [facility] CLIA [id number] [address] [place] [address] [place] [facility] Urea nitrogen [Mass/Vol] 4 mg/dL Low 7-21 [facility] Comment on above: Order Comment: Speci men Type: BLOOD SPECIMEN Ordering Facility: [facility] Address: [address] [place] [address] Performed By: #### 2 4321-2 #### [facility] CLIA [id number] [address] [place] [address] [place] CBC W Auto Differential pane l (Bld)on 07-26-2023 Basophils (Bld) [#/Vol] 10*3/uL Normal <0.11 [facility] Comment on above: Order Comment: Speci men Type: BLOOD SPECIMEN Ordering Facility: [facility] Address: [address] [place] [address] Performed By: #### 5 7021-8 #### [facility] CLIA [id number] [address] [place] [address] [place] Basophils/100 WBC (Bld) 0.2 % Normal [facility] Comment on above: Order Comment: Speci men Type: BLOOD SPECIMEN Ordering Facility: [facility] Address: [address] [place] [address] Performed By: #### 5 7021-8 #### [facility] CLIA [id number] [address] [place] [address] [place] [facility] Differential cell count method Nom (Bld) Auto Normal [facility] Comment on above: Order Comment: Speci men Type: BLOOD SPECIMEN Ordering Facility: [facility] Address: [address] [place] [address] Performed By: #### 5 7021-8 #### [facility] CLIA [id number] [address] [place] [address] [place] Eosinophils (Bld) [#/Vol] 0.10 10*3/uL Normal <0.46 [facility] Comment on above: Order Comment: Speci men Type: BLOOD SPECIMEN Ordering Facility: [facility] Address: [address] [place] [address] Performed By: #### 5 7021-8 #### [facility] CLIA [id number] [address] [place] [address] [place] Eosinophils/100 WBC (Bld) 1.2 % Normal [facility] Comment on above: Order Comment: Speci men Type: BLOOD SPECIMEN Ordering Facility: [facility] Address: [address] [place] [address] Performed By: #### 5 7021-8 #### [facility] CLIA [id number] [address] [place] [address] [place] Erythrocyte distribution width (RBC) [Ratio] 13.2 % Normal 11.5-15.0 [facility] Comment on above: Order Comment: Speci men Type: BLOOD SPECIMEN Ordering Facility: [facility] Address: [address] [place] [address] Performed By: #### 5 7021-8 #### [facility] CLIA [id number] [address] [place] [address] [place] Hematocrit (Bld) [Volume fraction] 41.2 % Normal 36.0-46.0 [facility] Comment on above: Order Comment: Speci men Type: BLOOD SPECIMEN Ordering Facility: [facility] Address: [address] [place] [address] Performed By: #### 5 7021-8 #### [facility] CLIA [id number] [address] [place] [address] [place] Hemoglobin (Bld) [Mass/Vol] 14.4 g/dL Normal 11.5-15.5 [facility] Comment on above: Order Comment: Speci men Type: BLOOD SPECIMEN Ordering Facility: [facility] Address: [address] [place] [address] Performed By: #### 5 7021-8 #### [facility] CLIA [id number] [address] [place] [address] [place] Immature granulocytes (Bld) [#/Vol] 0.03 10*3/uL Normal <0.10 [facility] Comment on above: Order Comment: Speci men Type: BLOOD SPECIMEN Ordering Facility: [facility] Address: [address] [place] [address] Performed By: #### 5 7021-8 #### [facility] CLIA [id number] [address] [place] [address] [place] [facility] Immature granulocytes/100 WBC (Bld) 0.4 % Normal [facility] Comment on above: Order Comment: Speci men Type: BLOOD SPECIMEN Ordering Facility: [facility] Address: [address] [place] [address] Performed By: #### 5 7021-8 #### [facility] CLIA [id number] [address] [place] Lymphocytes (Bld) [#/Vol] 0.58 10*3/uL Low 1.00-4.00 [facility] Comment on above: Order Comment: Speci men Type: BLOOD SPECIMEN Ordering Facility: [facility] Address: [address] [place] [address] Performed By: #### 5 7021-8 #### [facility] CLIA [id number] [address] [place], [place] [address] [place] [address] [place] Lymphocytes/100 WBC (Bld) 7.0 % Normal [facility] Comment on above: Order Comment: Speci men Type: BLOOD SPECIMEN Ordering Facility: [facility] Address: [address] [place] [address] Performed By: #### 5 7021-8 #### [facility] CLIA [id number] [address] [place] MCH (RBC) [Entitic mass] 29.4 pg Normal 26.0-34.0 [facility] Comment on above: Order Comment: Speci men Type: BLOOD SPECIMEN Ordering Facility: [facility] Address: [address] [place] [address] Performed By: #### 5 7021-8 #### [facility] CLIA [id number] [address] [place] [address] [place] MCHC (RBC) [Mass/Vol] 35.0 g/dL Normal 30.5-36.0 [facility] Comment on above: Order Comment: Speci men Type: BLOOD SPECIMEN Ordering Facility: [facility] Address: [address] [place] [address] Performed By: #### 5 7021-8 #### [facility] CLIA [id number] [address] [place] [address] [place] MCV (RBC) [Entitic vol] 84.3 fL Normal 80.0-100.0 [facility] Comment on above: Order Comment: Speci men Type: BLOOD SPECIMEN Ordering Facility: [facility] Address: [address] [place] [address] Performed By: #### 5 7021-8 #### [facility] CLIA [id number] [address] [place] [address] [place] Monocytes (Bld) [#/Vol] 0.77 10*3/uL Normal <0.87 [facility] Comment on above: Order Comment: Speci men Type: BLOOD SPECIMEN Ordering Facility: [facility] Address: [address] [place] [address] Performed By: #### 5 7021-8 #### [facility] CLIA [id number] [address] [place], [place] [address] [place] [address] [place] Monocytes/100 WBC (Bld) 9.4 % Normal [facility] Comment on above: Order Comment: Speci men Type: BLOOD SPECIMEN Ordering Facility: [facility] Address: [address] [place] [address] Performed By: #### 5 7021-8 #### [facility] CLIA [id number] [address] [place] [address] [place] Neutrophils (Bld) [#/Vol] 6.73 10*3/uL Normal 1.45-7.50 [facility] Comment on above: Order Comment: Speci men Type: BLOOD SPECIMEN Ordering Facility: [facility] Address: [address] [place] [address] Performed By: #### 5 7021-8 #### [facility] CLIA [id number] [address] [place] [address] [place] Neutrophils/100 WBC (Bld) 81.8 % Normal [facility] Comment on above: Order Comment: Speci men Type: BLOOD SPECIMEN Ordering Facility: [facility] Address: [address] [place] [address] Performed By: #### 5 7021-8 #### [facility] CLIA [id number] [address] [place] [address] [place] Nucleated RBC (Bld) [#/Vol] Normal [facility] Comment on above: Order Comment: Speci men Type: BLOOD SPECIMEN Ordering Facility: [facility] Address: [address] [place] [address] Performed By: #### 5 7021-8 #### [facility] CLIA [id number] [address] [place] [address] [place] Nucleated RBC/100 WBC (Bld) [Ratio] Normal [facility] Comment on above: Order Comment: Speci men Type: BLOOD SPECIMEN Ordering Facility: [facility] Address: [address] [place] [address] Performed By: #### 5 7021-8 #### [facility] CLIA [id number] [address] [place] [address] [place] Platelet mean volume (Bld) [Entitic vol] 9.3 fL Normal 9.0-12.7 [facility] Comment on above: Order Comment: Speci men Type: BLOOD SPECIMEN Ordering Facility: [facility] Address: [address] [place] [address] Performed By: #### 5 7021-8 #### [facility] CLIA [id number] [address] [place] [address] [place] Platelets (Bld) [#/Vol] 215 10*3/uL Normal 150-400 [facility] Comment on above: Order Comment: Speci men Type: BLOOD SPECIMEN Ordering Facility: [facility] Address: [address] [place] [address] Performed By: #### 5 7021-8 #### [facility] CLIA [id number] [address] [place] [address] [place] RBC (Bld) [#/Vol] 4.89 10*6/uL Normal 3.90-5.20 [facility] Comment on above: Order Comment: Speci men Type: BLOOD SPECIMEN Ordering Facility: [facility] Address: [address] [place] [address] Performed By: #### 5 7021-8 #### [facility] CLIA [id number] [address] [place] [address] [place] WBC (Bld) [#/Vol] 8.23 10*3/uL Normal 3.70-11.00 [facility] Comment on above: Order Comment: Speci men Type: BLOOD SPECIMEN Ordering Facility: [facility] Address: [address] [place] [address] Performed By: #### 5 7021-8 #### [facility] CLIA [id number] [address] [place] [address] [place] CRP SerPl-mCncon 07-26-2023 CRP [Mass/Vol] 4.8 mg/dL High <0.9 [facility] Comment on above: Order Comment: Speci men Type: BLOOD SPECIMEN Ordering Facility: [facility] Address: [address] [place] [address] Performed By: #### 3 3959-8, 3084-1, 30734-4, 1988- #### [facility] CLIA [id number] [address] [place] [address] [place] [address] BRAIN WO IVCONon 07-26-[address] BRAIN WO IVCON * * *Final Report* * * DATE OF EXAM: Jul 26 2023 7:58AM [facility] [place] CT BRAIN WO IVCON / PROCEDURE REASON: Headache, sudden, severe * * * * Physician Interpretation * * * * EXAMINATION: CTA HEAD W IVCON, CTA NECK W IVCON, CT BRAIN WO IVCON CLINICAL HISTORY: Headache, sudden, severe TECHNIQUE: Routine CT of the brain without IV contrast. Next, high resolution axial images were obtained through the head, neck and superior mediastinum following bolus administration of intravenous contrast for CT angiography. Post-processed 3D maximum intensity projections were created, reviewed and archived. MQ: CTABNPlus_4 Contrast: 100 mL Omnipaque [address] Dose-Length Product (DLP): 2243.53 (accession [id number]), 2243.53 (accession [id number]), 2243.53 Combined exam (accession [id number]) mGy*cm CT Dose Reduction Employed: Automated exposure control(AEC) and iterative recon (accession [id number]), Automated exposure control(AEC) and iterative recon (accession [id number]), No dose reduction techniques were required (accession [id number]); COMPARISON: 10/12/2015 brain MRI RESULT: BRAIN (non-contrast): Mild motion artifact limitation. Acute change: No evidence of a sizable/large acute territorial brain infarct/parenchymal edema. MRI may be considered as a more sensitive modality if continued clinical concern/warranted. ASPECT Score (if applicable) = Hemorrhage: No evidence of acute intracranial hemorrhage. ECASS hemorrhagic transformation score: Not Applicable Mass Lesion / Mass Effect: There is no evidence of a sizable brain mass. No significant mass effect or extra-axial fluid collection. Chronic changes, including parenchymal: Mild intracranial arterial wall calcifications. Hyperostosis frontalis interna incidentally noted. The cerebellar tonsils incidentally lie at or slightly below the level of foramen magnum, as before. Patchy foci of low attenuation coefficient are present within the supratentorial white matter, which is a nonspecific finding, but (predominantly) compatible with demyelinating lesions given prior MRI appearance and multiple sclerosis history. There is mild generalized cerebral volume loss. Ventricles: Commensurate with sulcal sizes. No hydrocephalus. Visualized paranasal sinuses: Few areas of minimal mucosal thickening. Mild hazy mucous related opacities in the left-sided sphenoid sinus. Other: No depressed skull fracture is seen. NECK: Lung apices: Mild bilateral upper lung zone pleural-parenchymal thickening/scarring. No visible apical lung mass or significant consolidation. Spine: The study protocol is not dedicated to its detailed assessment. Degenerative spine changes, with up to estimated severe neural foraminal stenosis, and mild-moderate spinal canal stenosis and mild ventral cord indentation at C5-C6. Soft tissues/Other: Incidental torus palatinus. Incidental mild secretion or aspirate-type intraluminal opacity in the dependent aspect of the lower trachea (reference 5:28). Equivocal minimal heterogeneity of the thyroid gland. CT ARTERIOGRAM: Extracranial Circulation: Aortic Arch: No significant atherosclerotic changes are seen in the arch. There appears to be standard branching pattern of the aortic arch, although some proximity of the left-sided JACOB and innominate artery origins. No significant stenoses are seen in the proximal brachiocephalic/subclavian arteries (allowing for adjacent/contrast artifact, if present). Other vasculature comments: Carotid stenosis: Right common: No significant stenosis. Right internal carotid plaque: No significant plaque. Right internal carotid stenosis (% by NASCET Criteria): 0 Carotid stenosis: Left common: No significant stenosis. Left internal carotid plaque: No significant plaque. Left internal carotid stenosis (% by NASCET Criteria): 0 Cervical vertebral arteries: Patency: Bilateral. Dominance: Right. Intracranial Circulation: Calcifications/atheroscler otic changes are present, with estimated up to mild left-sided and minimal right-sided stenoses in the ICAs. Patent (in the well-visualized portions) bilateral internal carotid, middle cerebral, anterior cerebral, posterior cerebral and vertebral arteries, and the basilar artery. An anterior communicating and small caliber bilateral posterior communicating arteries are seen and show patency, i.e. complete [place]. The other major vertebrobasilar branches and the opthalmic arteries also show patency, at least in the well visualized portions. Left-sided dominance of the AICA/PICA. No visible sizable/large intracranial aneurysm. Punctate/1.5 mm infundibulum (subtle funnel-shaped minimal prominence) at the right-sided posterior communicating artery origin (reference 5:365). No acute dural venous sinus thrombosis is seen. Data Governance Consultant (topogram) images: Non-diagnostic. IMPRESSION: Non-contrast CT brain shows no (more content not included)... Normal [facility] CTA HEAD W IVCONon 4 CTA HEAD W IVCON * * *Final Report* * * DATE OF EXAM: Jul 26 2023 7:59AM [facility] [place]22 - CTA HEAD W IVCON / PROCEDURE REASON: Headache, sudden, severe * * * * Physician Interpretation * * * * EXAMINATION: CTA HEAD W IVCON, CTA NECK W IVCON, CT BRAIN WO IVCON CLINICAL HISTORY: Headache, sudden, severe TECHNIQUE: Routine CT of the brain without IV contrast. Next, high resolution axial images were obtained through the head, neck and superior mediastinum following bolus administration of intravenous contrast for CT angiography. Post-processed 3D maximum intensity projections were created, reviewed and archived. MQ: CTABNPlus_4 Contrast: 100 mL Omnipaque [address] Dose-Length Product (DLP): 2243.53 (accession [id number]), 2243.53 (accession [id number]), 2243.53 Combined exam (accession [id number]) mGy*cm CT Dose Reduction Employed: Automated exposure control(AEC) and iterative recon (accession [id number]), Automated exposure control(AEC) and iterative recon (accession [id number]), No dose reduction techniques were required (accession [id number]); COMPARISON: 10/12/2015 brain MRI RESULT: BRAIN (non-contrast): Mild motion artifact limitation. Acute change: No evidence of a sizable/large acute territorial brain infarct/parenchymal edema. MRI may be considered as a more sensitive modality if continued clinical concern/warranted. ASPECT Score (if applicable) = Hemorrhage: No evidence of acute intracranial hemorrhage. ECASS hemorrhagic transformation score: Not Applicable Mass Lesion / Mass Effect: There is no evidence of a sizable brain mass. No significant mass effect or extra-axial fluid collection. Chronic changes, including parenchymal: Mild intracranial arterial wall calcifications. Hyperostosis frontalis interna incidentally noted. The cerebellar tonsils incidentally lie at or slightly below the level of foramen magnum, as before. Patchy foci of low attenuation coefficient are present within the supratentorial white matter, which is a nonspecific finding, but (predominantly) compatible with demyelinating lesions given prior MRI appearance and multiple sclerosis history. There is mild generalized cerebral volume loss. Ventricles: Commensurate with sulcal sizes. No hydrocephalus. Visualized paranasal sinuses: Few areas of minimal mucosal thickening. Mild hazy mucous related opacities in the left-sided sphenoid sinus. Other: No depressed skull fracture is seen. NECK: Lung apices: Mild bilateral upper lung zone pleural-parenchymal thickening/scarring. No visible apical lung mass or significant consolidation. Spine: The study protocol is not dedicated to its detailed assessment. Degenerative spine changes, with up to estimated severe neural foraminal stenosis, and mild-moderate spinal canal stenosis and mild ventral cord indentation at C5-C6. Soft tissues/Other: Incidental torus palatinus. Incidental mild secretion or aspirate-type intraluminal opacity in the dependent aspect of the lower trachea (reference 5:28). Equivocal minimal heterogeneity of the thyroid gland. CT ARTERIOGRAM: Extracranial Circulation: Aortic Arch: No significant atherosclerotic changes are seen in the arch. There appears to be standard branching pattern of the aortic arch, although some proximity of the left-sided JACOB and innominate artery origins. No significant stenoses are seen in the proximal brachiocephalic/subclavian arteries (allowing for adjacent/contrast artifact, if present). Other vasculature comments: Carotid stenosis: Right common: No significant stenosis. Right internal carotid plaque: No significant plaque. Right internal carotid stenosis (% by NASCET Criteria): 0 Carotid stenosis: Left common: No significant stenosis. Left internal carotid plaque: No significant plaque. Left internal carotid stenosis (% by NASCET Criteria): 0 Cervical vertebral arteries: Patency: Bilateral. Dominance: Right. Intracranial Circulation: Calcifications/atheroscler otic changes are present, with estimated up to mild left-sided and minimal right-sided stenoses in the ICAs. Patent (in the well-visualized portions) bilateral internal carotid, middle cerebral, anterior cerebral, posterior cerebral and vertebral arteries, and the basilar artery. An anterior communicating and small caliber bilateral posterior communicating arteries are seen and show patency, i.e. complete [place]. The other major vertebrobasilar branches and the opthalmic arteries also show patency, at least in the well visualized portions. Left-sided dominance of the AICA/PICA. No visible sizable/large intracranial aneurysm. Punctate/1.5 mm infundibulum (subtle funnel-shaped minimal prominence) at the right-sided posterior communicating artery origin (reference 5:365). No acute dural venous sinus thrombosis is seen. Data Governance Consultant (topogram) images: Non-diagnostic. IMPRESSION: Non-contrast CT brain shows no e (more content not included)... Normal [facility] CTA NECK W IVCONon 4 CTA NECK W IVCON * * *Final Report* * * DATE OF EXAM: Jul 26 2023 7:59AM [facility] [place]24 - CTA NECK W IVCON / PROCEDURE REASON: Headache, sudden, severe * * * * Physician Interpretation * * * * EXAMINATION: CTA HEAD W IVCON, CTA NECK W IVCON, CT BRAIN WO IVCON CLINICAL HISTORY: Headache, sudden, severe TECHNIQUE: Routine CT of the brain without IV contrast. Next, high resolution axial images were obtained through the head, neck and superior mediastinum following bolus administration of intravenous contrast for CT angiography. Post-processed 3D maximum intensity projections were created, reviewed and archived. MQ: CTABNPlus_4 Contrast: 100 mL Omnipaque [address] Dose-Length Product (DLP): 2243.53 (accession [id number]), 2243.53 (accession [id number]), 2243.53 Combined exam (accession [id number]) mGy*cm CT Dose Reduction Employed: Automated exposure control(AEC) and iterative recon (accession [id number]), Automated exposure control(AEC) and iterative recon (accession [id number]), No dose reduction techniques were required (accession [id number]); COMPARISON: 10/12/2015 brain MRI RESULT: BRAIN (non-contrast): Mild motion artifact limitation. Acute change: No evidence of a sizable/large acute territorial brain infarct/parenchymal edema. MRI may be considered as a more sensitive modality if continued clinical concern/warranted. ASPECT Score (if applicable) = Hemorrhage: No evidence of acute intracranial hemorrhage. ECASS hemorrhagic transformation score: Not Applicable Mass Lesion / Mass Effect: There is no evidence of a sizable brain mass. No significant mass effect or extra-axial fluid collection. Chronic changes, including parenchymal: Mild intracranial arterial wall calcifications. Hyperostosis frontalis interna incidentally noted. The cerebellar tonsils incidentally lie at or slightly below the level of foramen magnum, as before. Patchy foci of low attenuation coefficient are present within the supratentorial white matter, which is a nonspecific finding, but (predominantly) compatible with demyelinating lesions given prior MRI appearance and multiple sclerosis history. There is mild generalized cerebral volume loss. Ventricles: Commensurate with sulcal sizes. No hydrocephalus. Visualized paranasal sinuses: Few areas of minimal mucosal thickening. Mild hazy mucous related opacities in the left-sided sphenoid sinus. Other: No depressed skull fracture is seen. NECK: Lung apices: Mild bilateral upper lung zone pleural-parenchymal thickening/scarring. No visible apical lung mass or significant consolidation. Spine: The study protocol is not dedicated to its detailed assessment. Degenerative spine changes, with up to estimated severe neural foraminal stenosis, and mild-moderate spinal canal stenosis and mild ventral cord indentation at C5-C6. Soft tissues/Other: Incidental torus palatinus. Incidental mild secretion or aspirate-type intraluminal opacity in the dependent aspect of the lower trachea (reference 5:28). Equivocal minimal heterogeneity of the thyroid gland. CT ARTERIOGRAM: Extracranial Circulation: Aortic Arch: No significant atherosclerotic changes are seen in the arch. There appears to be standard branching pattern of the aortic arch, although some proximity of the left-sided JACOB and innominate artery origins. No significant stenoses are seen in the proximal brachiocephalic/subclavian arteries (allowing for adjacent/contrast artifact, if present). Other vasculature comments: Carotid stenosis: Right common: No significant stenosis. Right internal carotid plaque: No significant plaque. Right internal carotid stenosis (% by NASCET Criteria): 0 Carotid stenosis: Left common: No significant stenosis. Left internal carotid plaque: No significant plaque. Left internal carotid stenosis (% by NASCET Criteria): 0 Cervical vertebral arteries: Patency: Bilateral. Dominance: Right. Intracranial Circulation: Calcifications/atheroscler otic changes are present, with estimated up to mild left-sided and minimal right-sided stenoses in the ICAs. Patent (in the well-visualized portions) bilateral internal carotid, middle cerebral, anterior cerebral, posterior cerebral and vertebral arteries, and the basilar artery. An anterior communicating and small caliber bilateral posterior communicating arteries are seen and show patency, i.e. complete [place]. The other major vertebrobasilar branches and the opthalmic arteries also show patency, at least in the well visualized portions. Left-sided dominance of the AICA/PICA. No visible sizable/large intracranial aneurysm. Punctate/1.5 mm infundibulum (subtle funnel-shaped minimal prominence) at the right-sided posterior communicating artery origin (reference 5:365). No acute dural venous sinus thrombosis is seen. Data Governance Consultant (topogram) images: Non-diagnostic. IMPRESSION: Non-contrast CT brain shows no e (more content not included)... Normal [facility] Chloride ?Tm Ur-sCncon 07-25 Chloride Unsp time (U) [Moles/Vol] <20 Normal 16-250 [facility] Comment on above: Order Comment: Speci men Type: URINE SPECIMEN Ordering Facility: [facility] Address: [address] [place] [address] Performed By: #### 3 5678-2, 08997-8 #### [facility] CLIA [id number] [address] [place] [address] [place] ECG COMPLETEon 07-26-2023 ECG COMPLETE Ventricular Rate : 8 1 BPM Atrial Rate : 81 BPM P-R Interval : 130 ms QRS Duration : 90 ms Q-T Interval : 426 ms QTC Calculation(Bazett) : 494 ms Calculated P Plover : -12 degrees Calculated R Plover : 69 degrees Calculated T Plover : 63 degrees NORMAL SINUS RHYTHM PROLONGED QT ABNORMAL ECG NO PREVIOUS ECGS AVAILABLE Confirmed by MD SPARROW VINAYAK ([id number]) on 07/27/2023 11:37:01 PM NAME : SOCORRO GRACE PID : [id number] : 1965 Gender : Female Race : ORD : [id number] Procedure Date : Jul 26 2023 07:14:50 Edit Date : Jul 27 2023 23:37:06 Diagnosis: NORMAL SINUS RHYTHM PROLONGED QT ABNORMAL ECG NO PREVIOUS ECGS AVAILABLE Confirmed by MD SPARROW VINAYAK ([id number]) on 07/27/2023 11:37:01 PM Test Reason : Dizziness Location : 150 : [facility] Overread By : MD SPARROW VINAYAK Edited By : MD SPARROW VINAYAK Referred By : , Acquired by : GENESIS HALEY [facility] ED NOTEon 07-26-2023 ED NOTE HNO ID: [id number] Author: KACIE FARFAN RN Service: ? Author Type: Registered Nurse Type: ED Notes Filed: 07/26/2023 09:51 Note Text: [facility] [place] currently in [facility] room per executive secretary and will call for report when able. Pt updated with room number. [facility] ED NOTE HNO ID: [id number] Author: KACIE FARFAN RN Service: ? Author Type: Registered Nurse Type: ED Notes Filed: 07/26/2023 09:47 Note Text: 2 North: 243 Nurse to Nurse: [phone] [place] ED NOTE HNO ID: [id number] Author: DANIEL MONTALVO, GEOVANNA Service: Nursing Author Type: Registered Nurse Type: ED Notes Filed: 07/26/2023 09:18 Note Text: Called [facility] for admission. Advised they have no available beds. , primary nurse and patient notified. [facility] ED NOTE HNO ID: [id number] Author: KACIE FARFAN RN Service: ? Author Type: Registered Nurse Type: ED Notes Filed: 07/26/2023 08:56 Note Text: Pt assisted to BSC; hat placed for urine collection [facility] ED NOTE HNO ID: [id number] Author: SANGITA ROSENBERG RN Service: Emergency Medicine Author Type: Registered Nurse Type: ED Notes Filed: 07/26/2023 07:06 Note Text: Change of shift report given to Kacie Chen RN. Transfer of patient care given to Kacie Chen RN. -NaCl infusing at 125ml/hr -Needs EKG (RT on their way) -Needs CT scans (Needs marked ready) [facility] ED NOTE HNO ID: [id number] Author: SANGITA ROSENBERG RN Service: Emergency Medicine Author Type: Registered Nurse Type: ED Notes Filed: 07/26/2023 06:46 Note Text: Patient informed about the name of the medication(s), what the medication(s) is(are) for, and what to expect with/from med administration. Patient given opportunity to ask questions. Medication(s) include: Reglan, Benadryl, NaCl [facility] ED NOTE HNO ID: [id number] Author: SANGITA ROSENBERG RN Service: Emergency Medicine Author Type: Registered Nurse Type: ED Notes Filed: 07/26/2023 06:36 Note Text: Physician at bedside for assessment. Patient's spouse at bedside. Normal [facility] ED NOTE HNO ID: [id number] Author: SANGITA ROSENBERG RN Service: Emergency Medicine Author Type: Registered Nurse Type: ED Notes Filed: 07/26/2023 07:04 Note Text: 57 y/o female presenting to the ED for complaint of headache. Patient reporting that her headaches have been on and off for the past two weeks. Patient stating that her headaches started up yesterday and has continued for 24 hours. Patient does complain of light sensitivity and some generalized weakness. Patient is alert and oriented x3 (person, place, and time of day). Patient changed into gown, call light in reach, patient's spouse at bedside. Normal [facility] ED PROV NOTEon 07-26-2023 ED PROV NOTE HNO ID: [id number] Author: DESTINY ODOM MD Service: Emergency Medicine Author Type: Physician Type: ED Provider Notes Filed: 12/29/2023 04:48 Note Text: ED CONTINUATION OF CARE NOTE Code Status: Full Code Assumed care from: Dr. Washington Patient signed out to me at shift change pending completion of workup, reevaluation and final disposition. At this time, I have seen patient and spoke with her and the . Initial laboratory studies, were concerning for multiple electrolyte abnormalities which are somewhat curious, and the electrolytes were repeated. Patient is hyponatremic, hypochloremic, of unknown etiology, possibly medication related. Twelve-lead EKG obtained. EKG 07:14 Sinus rhythm rate 81, no STEMI, no ectopy, mildly prolonged QTc 494 ms, no ischemic changes, no ST segment changes CT brain, CTA head and neck, no obvious acute abnormalities. CBC normal. Patient's medication list, appears somewhat incomplete, and additionally she just recently followed up with her doctor, received new prescriptions, and her PCP is out of our hospital system. With patient's severely low sodium, she warrants telemetry admission and gentle rehydration, and for the workup of the etiology of the above. Patient requested [facility], and transfer team was contacted. Clinical Impressions as of 12/29/23 0448 Nonintractable headache, unspecified chronicity pattern, unspecified headache type Hyponatremia Libertad infection - yeast in urine Medical Decision Making SIGNATURE: Destiny Odom MD PATIENT NAME: Socorro Grace DATE: July 26, 2023 TIME: 8:51 AM PAGER/CONTACT #: DESTINY ODOM 12/29/23 0448 Normal [facility] ED PROV NOTE HNO ID: [id number] Author: SONAL FARLEY DO Service: Emergency Medicine Author Type: Physician Type: ED Provider Notes Filed: 07/26/2023 06:52 Note Text: ED Provider Note Patient Name: Socorro Grace : 1965 SERVICE DATE: 07/26/23 History Patient presents with: Headache Socorro Grace is a 57 year old female with history of multiple chronic medical problems who presents with Headache. - Symptoms began off and on over the past 2 weeks, with this headache waking her up yesterday morning (Friday). - Severity: 10/10 - Timing: constant - Quality: throbbing - Symptoms are associated with nausea, light sensitivity, dizziness. - Symptoms are not associated with abdominal pain, chest pain, fever, rash, shortness of breath, vomiting, head injury, neck stiffness. Patient presents stating that she had sudden onset of headache Friday morning that woke her up. She states she has been having headaches off and on over the past couple weeks as she has had cold symptoms more in her head with sinus congestion. She states she does not have a history of migraines. She states that this headache is a 10/10 throbbing headache. She reports light sensitivity. She reports nausea. She denies any change in weakness from her baseline with MS. No vision loss. No difficulty speaking. No head injury. No neck stiffness. No fever. She denies chest pain or shortness of breath. PAST MEDICAL HISTORY Diagnosis Date Depression SOCORRO (generalized anxiety disorder) MS (multiple sclerosis) ([facility]) 2006 Dr. Buckley Osteopenia hip, spine. BMD 03/29 S/P hysterectomy LAYNE/BSO - endometriosis Snoring normal sleep study. on flonase Vitamin D deficiency PAST SURGICAL HISTORY Procedure Laterality Date COLONOSCOPY 11/23/2013 - repeat 5 years - reminder created TOTAL ABDOMINAL HYSTERECT W/WO RMVL TUBE OVARY 05/12/1999 appendix with LAYNE/BSO for endometriosis FAMILY HISTORY Problem Relation Age of Onset Diabetes Father Colon Cancer Father 60's, partial colectomy Heart Attack Father other (stents) Father Arthritis Mother other (migraines) Mother other (hsp) Daughter nephritis other (migraines) Daughter Colon Cancer Maternal Grandfather Ovarian cancer Sister 40's 1/2 other (hepatitis C) Sister No Ocular Disease Other Social History Tobacco Use Smoking status: Every Day Packs/day: 0.25 Years: 13.00 Additional pack years: 0.00 Total pack years: 3.25 Types: Cigarettes Start date: 1979 Last attempt to quit: 1992 Years since quittin.2 Smokeless tobacco: Never Tobacco comments: 1 cig per week - recreational Substance and Sexual Activity Alcohol use: Yes Comment: once a night Drug use: No Sexual activity: Yes ALLERGIES Allergen Reactions Seasonal Allergies Intolerance Penicillins Rash Review of Systems Constitutional: Negative for chills and fever. HENT: Negative for facial swelling and trouble swallowing. Eyes: Positive for photophobia. Negative for visual disturbance. Respiratory: Negative for cough and shortness of breath. Cardiovascular: Negative for chest pain. Gastrointestinal: Positive for nausea. Negative for abdominal pain and vomiting. Genitourinary: Negative for flank pain. Musculoskeletal: Negative for neck stiffness. Skin: Negative for rash. Neurological: Positive for dizziness, weakness (Chronic left-sided weakness, nothing new or different from baseline) and headaches. Negative for syncope and numbness. Psychiatric/Behavioral: Negative for agitation and confusion. Physical Exam Vitals [07/26/23 0635] BP Pulse Temp Temp src Resp SpO2 Weight Height (!) 171/112 (!) 92 36 ?C (96.8 ?F) Temporal 22 97 % 73.9 kg (163 lb) -- Physical Exam Vitals and nursing note reviewed. Constitutional: Appearance: She is not toxic-appearing or diaphoretic. HENT: Head: Normocephalic and atraumatic. Mouth/Throat: Mouth: Mucous membranes are moist. Pharynx: Oropharynx is clear. Eyes: General: No scleral icterus. Extraocular Movements: Extraocular movements intact. Pupils: Pupils are equal, round, and reactive to light. Cardiovascular: Rate and Rhythm: Normal rate and regular rhythm. Pulses: Normal pulses. Pulmonary: Effort: Pulmonary effort is normal. Breath sounds: Normal breath sounds. Abdominal: General: Abdomen is flat. Bowel sounds are normal. There is no distension. Palpations: Abdomen is soft. Tenderness: There is no abdominal tenderness. Musculoskeletal: Cervical back: Normal range of motion and neck supple. Right lower leg: No edema. Left lower leg: No edema. Skin: General: Skin is warm and dry. Capillary Refill: Capillary refill takes less than 2 seconds. Neurological: Mental Status: She is alert and oriented to person, place, and time. GCS: GCS eye subscore is 4. GCS verbal subscore is 5. GCS motor subscore is 6. Cranial Nerves: Cranial nerves 2- (more content not included)... Normal [facility] FLUABV+SARS-CoV-2+RSV Pnl Re sp SHON+probeon 07-26-2023 FLUABV+SARS-CoV-2+RSV Pnl Resp SHON+probe COVID 19 RESULT: Not detected The method used is RT-PCR or an equivalent NAAT method. Reference Range(the expected result in uninfected individuals): Not detected INFLUENZA A PCR: Not detected INFLUENZA B PCR: Not detected RSV PCR: Not detected Normal [facility] Comment on above: Performed By: #### 3 5678-2 #### [facility] CLIA [id number] [address] [place] [address] HIGH SENSITIVITY TROPONIN To n 07-26-2023 Troponin T.cardiac High sensitivity method [Mass/Vol] 8 ng/L Normal <12 [facility] Comment on above: Order Comment: Speci men Type: BLOOD SPECIMEN Ordering Facility: [facility] Address: [address] [place] [address] Result Comment: When assessing risk for acute coronary syndromes: In patients undergoing blood draw greater than or equal to 2 hours from symptom onset, with history of very low to moderate risk and non-ischemic ECG, an initial hs-Troponin T less than 12 ng/L AND a 1 hour delta hs-Troponin T less than 3 ng/L should be considered very low risk for 30 day MACE. Performed By: #### H STNT #### [facility] CLIA [id number] [address] [place] [address] [place] HISTORY PHYSICALon HISTORY PHYSICAL HNO ID: [id number] Author: SANTIAGO BOOKER MD Service: Hospital Medicine Author Type: Physician Type: H&P Filed: 07/26/2023 18:00 Note Text: DEPARTMENT OF HOSPITAL MEDICINE HISTORY AND PHYSICAL EXAM SERVICE DATE: 07/26/2023 SERVICE TIME: 6:00 PM Hospital Medicine/Primary Attending: Santiago Booker MD NIGHT AND WEEKEND COVERAGE: [facility] C[facility]: Nights: [phone], please page [facility] Night coverage pager [phone]. Admission date: 07/26/2023 MEDICAL DECISION MAKING Reason for Admission: Hyponatremia sodium 120 with headache and having just been started subsequently on DDAVP Reviewed notes: Interpreted labs: Interpreted imaging indpendently: Interpreted EKG independently: See EKG interpretation below. ASSESSMENT/PLAN Patient with URI subsequent pain that is probably sinusitis or atypical migraine she has some mild photophobia but she has a chronic esotropia and CTA was reviewed and consistent with her prior history of multiple sclerosis. She has had some postnasal drip she has crusting in her nose with a granular pharynx consistent with sinusitis there are some white cells in the urine and E. coli could also give her headache getting UA and culture going to give her Afrin spray and saline wash along with ceftriaxone IV her lungs are clear but we will have urine and sinuses covered. 1200 cc see fluid restriction checking uric acid, urine sodium, urine osmolality and stopping DDAVP with every 4 hours sodiums-first repeat sodium was 130 however she had only been on the DDAVP for 3 days so she should be okay because I did not think to correct the sodium except fluid restrict her Ceftriaxone after blood urine cultures obtained Consultants: PROCEDURES: NONE Disposition: Home EK07/26/2023 sinus rhythm borderline QTc similar to EKG 05/10/2011 at that time QTc was 458 and measuring she is still slightly under 500 Echocardiogram: None Recent Labs 07/26/23 0650 WBC 8.23 RBC 4.89 HB 14.4 HCT 41.2 PLT 215 MCV 84.3 MCH 29.4 MPV 9.3 ABSNEUT 6.73 NEUTP 81.8 LYMPHP 7.0 MONOP 9.4 EODINP 1.2 No results for input(s): TBILI, DBILI, CBILI, AST, ALT, ALB, TPROT, ALKPHOS in the last 720 hours. Recent Labs 07/26/23 1531 07/26/23 0751 07/26/23 0650 NA 130* 120* 123* K -- 3.9 4.1 CHLOR 99 85* 87* CO2 20* 21* 19* ANION 11 14 17 Recent Labs 07/26/23 1531 07/26/23 0751 07/26/23 0650 BUN 7 4* 4* CREAT 0.54* 0.47* 0.43* CA 8.3* 8.7 9.1 Most recent labs HOSPITAL COURSE: Socorro Grace is a 57 year old female presented with past medical history of multiple sclerosis with polyuria, left hemiparesis secondary to MS, presenting with headache to the ED with the finding of hyponatremia when laboratory studies were checked. Sodium level is 120. The headache started on 07/20 throbbing bitemporal headache she was having urinary frequency and her neurologist started her on DDAVP for the polyuria because she was being incontinent with urine. The patient has multiple sclerosis and as a baseline has some mild left arm weakness with more left leg weakness and some bladder incontinence the hemiparesis is because of plaques from the multiple sclerosis. The patient in reviewing prior values had not been hyponatremic and the DDAVP is probably doing that. She had some white cells in her urine and E. coli can cause fairly severe headache she also had a URI for about 3 weeks and has referral areas that would indicate sinus involvement with her migraine as she has photophobia or sinus infection potentially causing the headache. She is excepted at [facility] and transferred to the medical floor and on arrival urine cultures obtained along with blood cultures and starting her on ceftriaxone. Studies are sent for [facility] and she is Placed on 1200 cc fluid restriction and IV fluids stopped until we see her urine sodium. Principal Problem: Hyponatremia Active Problems: Multiple sclerosis ([facility]) Overview: Sx: memory, L side weakness and dysesthesias Internuclear ophthalmoplegia Stress incontinence Overview: 10/23 largely resolved, to do kegels and PRN oxybutinin (causes dry mouth). MS (multiple sclerosis) ([facility]) Overview: Dr. Buckley Hemiparesis, left ([facility]) Overview: Secondary from plaquing for multiple sclerosis Resolved Problems: * No resolved hospital problems. * ROS: All systems reviewed and negative except as above. PHYSICAL EXAM: BP 156/94 Pulse 81 Temp (Src) 98.3 (Oral) Resp 18 Ht 5' 6 (1.68m) Wt 168 lb 3.4 oz (76.3kg) SpO2 97% BMI 27.16 kg/(m2). O2 Therapy: Room Air Physical Exam Performed GENERAL: Alert, no distress, cooperative HEENT: She has ecchymoses below the right eye where she had had a fall she has no paresthesia over the upper lip no step-off fracture and no limitation of upward gaze EOMs intact with chronic esotropia of the left eye Pupils equal round react light may hav (more content not included)... Normal [facility] NURSING PROGon 07-26-2023 NURSING PROG HNO ID: [id number] Author: CECE ESPINAL, GEOVANNA Service: ? Author Type: Registered Nurse Type: Nursing Progress Note Filed: 07/26/2023 12:28 Note Text: Transfer Note: PATIENT NAME: Socorro Grace Patient Location: [place] [address] [address] Room: [place] [address] Patient transferred into room/unit 243 in stable condition. Sr on tele, pt. C/o 12/19 headache. Actions taken: Pt. Oriented to room and call light, unit routine. Dr. Booker at the bedside. Will continue to monitor and check with patient. Patient belongings with patient Normal [facility] Osmolality Uron 07-26-2023 Osmolality (U) [Osmolality] 169 mosm/kg Normal 50-1200 [facility] Comment on above: Order Comment: Abdirahman munoz Type: SWAB OF INTERNAL NOSE Ordering Facility: [facility] Address: [address] [place] [address] Performed By: #### S APCR #### [facility] CLIA [id number] [address] [place] [address] [place] [address] [place] Procalcitonin SerPl-mCncon 0 07-26-2023 Procalcitonin [Mass/Vol] 0.08 ng/mL Normal <0.09 [facility] Comment on above: Order Comment: Abdirahman munoz Type: BLOOD SPECIMEN Ordering Facility: [facility] Address: [address] [place] [address] Result Comment: For a guided interpretation of test results, please visit the Change in Procalcitonin Calculator, [email or web address]. Performed By: #### 3 3959-8, 3084-1, 73728-4, 1987- #### [facility] CLIA [id number] [address] [place] [address] [place] STAPH AUREUS PCRon 4 S. aureus and MRSA panel SHON+probe (Nose) Normal Negative [facility] Comment on above: Order Comment: Speci men Type: SWAB OF INTERNAL NOSE Ordering Facility: [facility] Address: [address] [place] [address] Result Comment: Nega tive for Staphylococcus aureus by PCR. Negative for MRSA by PCR Performed By: #### S APCR #### [facility] CLIA [id number] [address] [place] [address] [place] Sodium ?Tm Ur-sCncon 024 Sodium Unsp time (U) [Moles/Vol] <20 Normal 14-216 [facility] Comment on above: Order Comment: Speci men Type: URINE SPECIMEN Ordering Facility: [facility] Address: [address] [place] [address] Performed By: #### 3 5678-2, 20892-3 #### [facility] CLIA [id number] [address] [place] [address] [place] Sodium Unsp time (U) [Moles/Vol] <20 Normal 14-216 [facility] Comment on above: Order Comment: Speci men Type: URINE SPECIMEN Ordering Facility: [facility] Address: [address] [place] [address] Performed By: #### 3 5678-2 #### [facility][1] [facility] CLIA [id number] [address] [place] [address] [place] Sodium SerPl-sCncon 07-26-19 24 Sodium [Moles/Vol] 134 mmol/L Low 136-144 [facility] Comment on above: Order Comment: Speci men Type: BLOOD SPECIMEN Ordering Facility: [facility] Address: [address] [place] [address] Performed By: #### 2 951-2 #### [facility] CLIA [id number] [address] [place] [address] [place] Urate SerPl-mCncon Urate [Mass/Vol] 2.2 mg/dL Low 2.5-6.6 [facility] Comment on above: Order Comment: Speci men Type: BLOOD SPECIMEN Ordering Facility: [facility] Address: [address] [place] [address] Performed By: #### 3 3959-8, 3084-1, 68906-2, 1987- #### [facility] CLIA [id number] [address] [place] [id number] [place] Urinalysis complete panel (U )on 07-26-2023 Bacteria LM.HPF (Urine sed) [#/Area] Few Abnormal None Seen [facility] Comment on above: Order Comment: Speci men Type: URINE SPECIMEN Ordering Facility: [facility] Address: [address] [place] [address] Performed By: #### 2 4356-8 #### [facility] CLIA [id number] [address] [place] [address] [place] Bilirubin Ql (U) Negative Normal Negative [facility] Comment on above: Order Comment: Speci men Type: URINE SPECIMEN Ordering Facility: [facility] Address: [address] [place] [address] Performed By: #### 2 4356-8 #### [facility] CLIA [id number] [address] [place] [address] [place] Clarity (Unsp spec) Clear Normal Clear [facility] Comment on above: Order Comment: Speci men Type: URINE SPECIMEN Ordering Facility: [facility] Address: [address] [place] [address] Performed By: #### 2 4356-8 #### [facility] CLIA [id number] [address] [place] [address] [place] Color (U) Straw Normal Yellow [facility] Comment on above: Order Comment: Speci men Type: URINE SPECIMEN Ordering Facility: [facility] Address: [address] [place] [address] Performed By: #### 2 4356-8 #### [facility] CLIA [id number] [address] [place] [address] [place] Epithelial cells LM.HPF (Urine sed) [#/Area] Few Normal [facility] Comment on above: Order Comment: Speci men Type: URINE SPECIMEN Ordering Facility: [facility] Address: [address] [place] [address] Performed By: #### 2 4356-8 #### [facility] CLIA [id number] [address] [place] [address] [facility] [place] Glucose Test strip (U) [Mass/Vol] Negative Normal Negative [facility] Comment on above: Order Comment: Speci men Type: URINE SPECIMEN Ordering Facility: [facility] Address: [address] [place] [address] Performed By: #### 2 4356-8 #### [facility] CLIA [id number] [address] [place] [address] [place] Hemoglobin Ql (U) Trace Abnormal Negative [facility] Comment on above: Order Comment: Speci men Type: URINE SPECIMEN Ordering Facility: [facility] Address: [address] [place] [address] Performed By: #### 2 4356-8 #### [facility] CLIA [id number] [address] [place] [address] [place] Ketones Ql (U) Negative Normal Negative [facility] Comment on above: Order Comment: Speci men Type: URINE SPECIMEN Ordering Facility: [facility] Address: [address] [place] [address] Performed By: #### 2 4356-8 #### [facility] CLIA [id number] [address] [place] [address] [place] Leukocyte esterase Test strip Ql (U) 1+ Abnormal Negative [facility] Comment on above: Order Comment: Speci men Type: URINE SPECIMEN Ordering Facility: [facility] Address: [address] [place] [address] Performed By: #### 2 4356-8 #### [facility] CLIA [id number] [address] [place] [address] [place] Nitrite Ql (U) Negative Normal Negative [facility] Comment on above: Order Comment: Speci men Type: URINE SPECIMEN Ordering Facility: [facility] Address: [address] [place] [address] Performed By: #### 2 4356-8 #### [facility] CLIA [id number] [address] [place] [address] [place] pH (U) 7.0 [pH] Normal 5.0-8.0 [facility] Comment on above: Order Comment: Speci men Type: URINE SPECIMEN Ordering Facility: [facility] Address: [address] [place] [address] Performed By: #### 2 4356-8 #### [facility] CLIA [id number] [address] [place] [id number] [place] Protein (U) [Mass/Vol] Negative Normal Negative [facility] Comment on above: Order Comment: Speci men Type: URINE SPECIMEN Ordering Facility: [facility] Address: [address] [place] [address] Performed By: #### 2 4356-8 #### [facility] CLIA [id number] [address] [place] [address] [place] RBC LM.HPF (Urine sed) [#/Area] 0-3 /HPF Normal 0-3 /HPF [facility] Comment on above: Order Comment: Speci men Type: URINE SPECIMEN Ordering Facility: [facility] Address: [address] [place] [address] Performed By: #### 2 4356-8 #### [facility] CLIA [id number] [address] [place] [address] [place] Specific gravity (U) [Rel density] 1.010 Normal 1.005-1.03 0 [facility] Comment on above: Order Comment: Speci men Type: URINE SPECIMEN Ordering Facility: [facility] Address: [address] [place] [address] Performed By: #### 2 4356-8 #### [facility] CLIA [id number] [address] [place] [address] Urobilinogen Ql (U) 0.2 EU/dL Normal 0.2-1.0 EU/dL [facility] Comment on above: Order Comment: Speci men Type: URINE SPECIMEN Ordering Facility: [facility] Address: [address] [place] [address] Performed By: #### 2 4356-8 #### [facility] CLIA [id number] [address] [place] [address] OF [place] WBC LM.HPF (Urine sed) [#/Area] 6-10 /HPF Abnormal 0-5 /HPF [facility] Comment on above: Order Comment: Speci men Type: URINE SPECIMEN Ordering Facility: [facility] Address: [address] [place] [address] Performed By: #### 2 4356-8 #### [facility] CLIA [id number] [address] [place] [address] OF [place] Yeast.budding LM.HPF (Urine sed) [#/Area] Few Abnormal None Seen [facility] Comment on above: Order Comment: Speci men Type: URINE SPECIMEN Ordering Facility: [facility] Address: [address] [place] [address] Performed By: #### 2 4356-8 #### [facility] CLIA [id number] [address] [place] [address] OF [place] Yeast.hyphae LM.HPF (Urine sed) [#/Area] Few Abnormal None Seen [facility] Comment on above: Order Comment: Speci men Type: URINE SPECIMEN Ordering Facility: [facility] Address: [address] [place] [address] Performed By: #### 2 4356-8 #### [facility] CLIA [id number] [address] [place] [address] [place] OF [place] CBC W Auto Differential pane l (Bld)on 05-24-2023 Basophils (Bld) [#/Vol] 0.04 x10*3/uL Normal 0.00-0.10 [facility] Comment on above: Performed By: #### 5 7021-8 #### RAFI KENDALL ([id number]) [facility] ([facility]) [address] [place] [address] 32936 Basophils/100 WBC (Bld) 0.7 % Normal 0.0-2.0 [facility] Comment on above: Performed By: #### 5 7021-8 #### RAFI KENDALL ([id number]) [facility] ([facility]) [address] [place] [address] 82532 Eosinophils (Bld) [#/Vol] 0.09 x10*3/uL Normal 0.00-0.70 [facility] Comment on above: Performed By: #### 5 7021-8 #### RAFI KENDALL ([id number]) [facility] ([facility]) [address] [place] [address] 59244 Eosinophils/100 WBC (Bld) 1.6 % Normal 0.0-6.0 [facility] Comment on above: Performed By: #### 5 7021-8 #### RAFI KENDALL ([id number]) [facility] ([facility]) [address] [place] [address] 35079 Erythrocyte distribution width (RBC) [Ratio] 12.3 % Normal 11.5-14.5 [facility] Comment on above: Performed By: #### 5 7021-8 #### RAFI KENDALL ([id number]) [facility] ([facility]) [address] [place] [address] 02983 Hematocrit (Bld) [Volume fraction] 43.9 % Normal 36.0-46.0 [facility] Comment on above: Performed By: #### 5 7021-8 #### RAFI KENDALL ([id number]) [facility] ([facility]) [address] [place] [address] 51716 Hemoglobin (Bld) [Mass/Vol] 14.2 g/dL Normal 12.0-16.0 [facility] Comment on above: Performed By: #### 5 7021-8 #### RAFI KENDALL ([id number]) [facility] ([facility]) [address] [place] [address] 73639 Immature granulocytes (Bld) [#/Vol] 0.03 x10*3/uL Normal 0.00-0.70 [facility] Comment on above: Performed By: #### 5 7021-8 #### RAFI KENDALL ([id number]) [facility] ([facility]) [address] [place] [address] 80206 Immature granulocytes/100 WBC (Bld) 0.5 % Normal 0.0-0.9 [facility] Comment on above: Result Comment: Marlena ture Granulocyte Count (IG) includes promyelocytes, myelocytes and metamyelocytes but does not include bands. Percent differential counts (%) should be interpreted in the context of the absolute cell counts (cells/UL). Performed By: #### 5 7021-8 #### RAFI KENDALL ([id number]) [facility] ([facility]) [address] [place] [address] 19717 Lymphocytes (Bld) [#/Vol] 0.72 x10*3/uL Low 1.20-4.80 [facility] Comment on above: Performed By: #### 5 7021-8 #### RAFI KENDALL ([id number]) [facility] ([facility]) [address] [place] [address] 05932 Lymphocytes/100 WBC (Bld) 13.1 % Normal 13.0-44.0 [facility] Comment on above: Performed By: #### 5 7021-8 #### RAFI KENDALL ([id number]) [facility] ([facility]) [address] [place] [address] 04540 MCH (RBC) [Entitic mass] 28.3 pg Normal 26.0-34.0 [facility] Comment on above: Performed By: #### 5 7021-8 #### RAFI KENDALL ([id number]) [facility] ([facility]) [address] [place] [address] 52544 MCHC (RBC) [Mass/Vol] 32.3 g/dL Normal 32.0-36.0 [facility] Comment on above: Performed By: #### 5 7021-8 #### RAFI KENDALL ([id number]) [facility] ([facility]) [address] [place] [address] 83555 MCV (RBC) [Entitic vol] 88 fL Normal 80-100 [facility] Comment on above: Performed By: #### 5 7021-8 #### RAFI KENDALL ([id number]) [facility] ([facility]) [address] [place] [address] 83440 Monocytes (Bld) [#/Vol] 0.66 x10*3/uL Normal 0.10-1.00 [facility] Comment on above: Performed By: #### 5 7021-8 #### RAFI KENDALL ([id number]) [facility] ([facility]) [address] [place] [address] 54643 Monocytes/100 WBC (Bld) 12.0 % Normal 2.0-10.0 [facility] Comment on above: Performed By: #### 5 7021-8 #### RAFI KENDALL ([id number]) [facility] ([facility]) [address] [place] [address] 94490 Neutrophils (Bld) [#/Vol] 3.96 x10*3/uL Normal 1.20-7.70 [facility] Comment on above: Result Comment: Perc ent differential counts (%) should be interpreted in the context of the absolute cell counts (cells/uL). Performed By: #### 5 7021-8 #### RAFI KENDALL ([id number]) [facility] ([facility]) [address] [place] [address] 35487 Neutrophils/100 WBC (Bld) 72.1 % Normal 40.0-80.0 [facility] Comment on above: Performed By: #### 5 7021-8 #### RAFI KENDALL ([id number]) [facility] ([facility]) [address] [place] [address] 98979 Nucleated RBC/100 WBC (Bld) [Ratio] 0.0 /100 WBCs Normal 0.0-0.0 [facility] Comment on above: Performed By: #### 5 7021-8 #### RAFI KENDALL ([id number]) [facility] ([facility]) [address] [place] [address] 99182 Platelets (Bld) [#/Vol] 270 x10*3/uL Normal 150-450 [facility] Comment on above: Performed By: #### 5 7021-8 #### RAFI KENDALL ([id number]) [facility] ([facility]) [address] [place] [address] 05771 RBC (Bld) [#/Vol] 5.02 x10*6/uL Normal 4.00-5.20 [facility] Comment on above: Performed By: #### 5 7021-8 #### RAFI KENDALL ([id number]) [facility] ([facility]) [address] [place], [place] [address] WBC (Bld) [#/Vol] 5.5 x10*3/uL Normal 4.4-11.3 [facility] Comment on above: Performed By: #### 5 7021-8 #### RAFI KENDALL ([id number]) [facility] ([facility]) [address] [place] [address] Comprehensive metabolic 2000 panelon 05-24-2023 Albumin BCP dye [Mass/Vol] 4.4 g/dL Normal 3.4-5.0 [facility] Comment on above: Performed By: #### 2 4323-8 #### RAFI KENDALL ([id number]) [facility] ([facility]) [address] [place] [address] 92038 ALP [Catalytic activity/Vol] 99 U/L Normal 33-110 [facility] Comment on above: Performed By: #### 2 4323-8 #### RAFI KENDALL ([id number]) [facility] ([facility]) [address] [place] [address] 61343 ALT With P-5'-P [Catalytic activity/Vol] 22 U/L Normal 7-45 [facility] Comment on above: Result Comment: Nhung ents treated with Sulfasalazine may generate falsely decreased results for ALT. Performed By: #### 2 4323-8 #### RAFI KENDALL ([id number]) [facility] ([facility]) [address] [place] [address] 79257 Anion gap [Moles/Vol] 12 mmol/L Normal 10-20 [facility] Comment on above: Performed By: #### 2 4323-8 #### RAFI KENDALL ([id number]) [facility] ([facility]) [address] [place] [address] 12308 AST With P-5'-P [Catalytic activity/Vol] 17 U/L Normal 9-39 [facility] Comment on above: Performed By: #### 2 4323-8 #### RAFI KENDALL ([id number]) [facility] ([facility]) [address] [place] [address] 81865 Bilirubin [Mass/Vol] 0.5 mg/dL Normal 0.0-1.2 [facility] Comment on above: Performed By: #### 2 4323-8 #### RAFI KENDALL ([id number]) [facility] ([facility]) [address] [place] [address] 80096 Calcium [Mass/Vol] 9.6 mg/dL Normal 8.6-10.3 [facility] Comment on above: Performed By: #### 2 4323-8 #### RAFI KENDALL ([id number]) [facility] ([facility]) [address] [place] [address] 97847 Chloride [Moles/Vol] 106 mmol/L Normal 98-107 [facility] Comment on above: Performed By: #### 2 4323-8 #### RAFI KENDALL ([id number]) [facility] ([facility]) [address] [place] [address] 15990 CO2 [Moles/Vol] 27 mmol/L Normal 21-32 [facility] Comment on above: Performed By: #### 2 4323-8 #### RAFI KENDALL ([id number]) [facility] ([facility]) [address] [place] [address] 30042 Creatinine [Mass/Vol] 0.61 mg/dL Normal 0.50-1.05 [facility] Comment on above: Performed By: #### 2 4323-8 #### RAFI KENDALL ([id number]) [facility] ([facility]) [address] [place] [address] 05814 GFR/1.73 sq M.predicted MDRD (S/P/Bld) [Vol rate/Area] mL/min/{1.73_m2} Normal >60 [facility] Comment on above: Result Comment: Calc ulations of estimated GFR are performed using the 2020 CKD-EPI Study Refit equation without the race variable for the IDMS-Traceable creatinine methods. https://jasn.asnjournals.org/content/early//ASN.07345 17556 Performed By: #### 2 4323-8 #### RAFI KENDALL ([id number]) [facility] ([facility]) [address] [place] [address] 34308 Glucose [Mass/Vol] 92 mg/dL Normal 74-99 [facility] Comment on above: Performed By: #### 2 4323-8 #### RAFI KENDALL ([id number]) [facility] ([facility]) [address] [place] [address] 01709 Potassium [Moles/Vol] 4.1 mmol/L Normal 3.5-5.3 [facility] Comment on above: Performed By: #### 2 4323-8 #### RAFI KENDALL ([id number]) [facility] ([facility]) [address] [place] [address] 26113 Protein [Mass/Vol] 7.0 g/dL Normal 6.4-8.2 [facility] Comment on above: Performed By: #### 2 4323-8 #### RAFI KENDALL ([id number]) [facility] ([facility]) [address] [place] [address] 30568 Sodium [Moles/Vol] 141 mmol/L Normal 136-145 [facility] Comment on above: Performed By: #### 2 4323-8 #### RAFI KENDALL ([id number]) [facility] ([facility]) [facility] [place] [id number] Urea nitrogen [Mass/Vol] 10 mg/dL Normal 6-23 [facility] Comment on above: Performed By: #### 2 4323-8 #### RAFI KENDALL ([id number]) [facility] ([facility]) [address] [place] [address] Ferritinon 05-24-2023 Ferritin [Mass/Vol] 419 ng/mL High 8-150 [facility] Comment on above: Performed By: #### 2 276-4 #### RAFI KENDALL ([id number]) [facility] ([facility]) [address] [place] [address] Ironon 05-24-2023 Iron [Mass/Vol] 103 ug/dL Normal 35-150 [facility] Comment on above: Performed By: #### 2 498-4 #### RAFI KENDALL ([id number]) [facility] ([facility]) [address] [place] [address] Therapy Communicationon 09-0 Therapy Communication Message SOCORRO GRACE was (D/C)- last seen: 08/20/22. Pt has not attended PT services for >/= 30 days. Per attendance policy they will be d/c at this time. Signatures Electronically signed by : Monik Mar PT; Jan 16 2023 2:15PM EST (Author) Normal [employer] Therapy Communicationon 08-2 Therapy Communication Message SOCORRO SANJAY was (D/C)- last seen: 08/13/22. Signatures Electronically signed by : TANIA Gutierrez/Lesley; Jan 06 2023 9:14AM EST (Author) Normal [employer] PT Progress Noteon 3 PT Progress Note Therapy Diagnosis Assessed Contracture, unspecified ankle (718.47) (M24.573) Unspecified abnormalities of gait and mobility (781.2) (R26.9) Multiple sclerosis (340) (G35) Plan Goals: Goals set and discussed today. In 2 weeks, pt will be IND and compliant with HEP for participation throughout POC. met In 4 weeks, pt will score 11 /30 on the FGA for safety with ADLs. met In 4 weeks, pt will demo 3 /5 MMT of L ankle for gait mechanics. not met Balance: UPDATED 03/05: In 3 weeks, pt will score 25/30 or higher on FGA for household and community navigation. not met In 8 weeks, pt will score 15 /30 on the FGA for safety with ambulation., goal met Strength: In 8 weeks, pt will demo 5/5 MMT L hip and knee for ease with stair negotiation. Planned interventions include: education/instruction, gait training, home program, neuromuscular re-education, self care/home management, therapeutic activities and therapeutic exercises. Frequency and duration:. every other week for 8 weeks = 4 visits. Potential to achieve rehab goals is good Plan to progress strengthening, balance and proprioceptive activities to reduce LOB and potential fall risks and to increase ease in ADLs. Progress with POC, as tolerated. Assessment Patient confirmed name and date of this session. Focus of treatment today on Neuromuscular Re-education in the BWSS for balance, proprioception and gait training. Patient completed fwd/bkwd/lat walking with moderate difficulty advancing the LEs and keeping up to speed w/ the mph. Patient moderately challenged with lateral hurdles on the L leg, difficulty picking up leg to bring it back to neutral. Moderate ankle instability w/ kicking a ball and cone taps/color taps. Overall patient progressed well w/ treatment in BWSS and was able to perform more difficult balance activities w/ less fear of falling. Treatment provided by ALFONZO Santos under the direct supervision of Monik Mar PT. Adult Risk Screening There are no spiritual/cultural practices/values/needs that are important to know Initial Fall Risk Screening: SOCORRO has fallen in the last 6 months. She has fallen due to toes curl under while outside. Her fall did not result in injury. SOCORRO does not have a fear of falling. She does not need assistance with sitting, standing or walking. Does not need assistance walking in her home. She does not need assistance in an unfamiliar setting. The patient is not using an assistive device. Care Plan: High Risk: Low and Moderate risk interventions plus: ensure patient is escorted at all times, do not leave unattended, inform provider of high risk status, discharge by wheelchair or escort assistance, room location, sitter, pre and post sedation/procedure standards, supervised toileting. Moderate: fall in last 6 months or fear of falling. High: multiple falls within the last 6 months. Insurance Insurance reviewed Visit number: 15 Approved number of visits: 20 per year 2022 visit count: 07/01 Insurance: medical mutual Evaluating therapist: Monik Mar PT, BÁRBARA PT dx: G35, R26.9 Subjective Patient reports:. Patient denies pain this visit (0/10). No complaints otherwise. Home program performing as directed: Yes. Precautions: Fall Risk: high Treatment Time in clinic started at 4:00 pm Time in clinic ended at 4:45 pm Total time in clinic is 45 minutes. Total timed code time is 43 minutes. Therapeutic exercise (15163):. *See NMR Below* *See Ther Activities* Sci Fit /Nu Step L1 5 mins Leg press 60# 2x10 STS LLE back x10 standard height chair (X) Resisted STS lowered plinth x10 (N) Squat x20 Lunges fwd x10 ea Lunges lat with yellow loop x10 ea (P) Side steps yellow loop 3 laps TRX SL squat x10 ea (N) Plantigrade fire hydrant 2 x 10 ea (X) Plantigrade donkey kick 2 x 10 ea (X). Neuromuscular Re-education (01144): timed minutes 43, units 3 . In BWSS: - fwd walking 2 mins,.5 mph (N) - lateral walking 2 mins,.5mph (N) - bwd walking 2 mins,.5 mph (N) - Hip abd 2 x 10 - Hip ext 2 x 10 - fwd lunges 2 x 10 (N) - Catching a ball x 20 (N) - Kicking a ball x 20 (N) - Throwing medicine ball x 20 (N) - toe taps on airex 2 x 10 (N) - Color star taps 2 x 10 (N) - Cone taps 2 x 10 (N) - fwd/lat hurdles x15 (N) NOT TODAY 08/20/22: Star taps to certain colors with certain foot AND cone (PT tells pt color and foot to tap- 1 sequencing) Hurdles sm LLE lead, RLE lead, side x1 lap ea (N) Standing step lat over 1 rona with weight through stance leg x10 ea (N) Tall kneel hip ext x10 (N) Staggered stance with arm swing x15 ea Ball toss x2 min Cone taps x2 min 1/2 kneel B on red mat -trunk rotations x10 ea Tall kneel -B UE flexion to 90* 2x10 -Alt UE flexion to 90* 2x10 . Therapeutic Activity (21678):. Transfer training on and off floor with red mat on floor. (N) GAIT BELT Getting on to floor: (with assist of plinth) (X) - Stand -> half knee with R in f (more content not included)... [facility] [facility] Progress Noteon 3 OT Progress Note Therapy Diagnosis Assessed Contracture of muscle, left upper arm (728.85) (M62.422) Fine motor impairment (V49.89) (R29.818,R29.898) Muscle weakness of left arm (728.87) (M62.81) Plan Goals: Goals set and discussed today. STG: SOCORRO will demonstrate good carryover of HEP for ROM, strengthening and coordination in order to improve functional independence at home/work by 2 weeks. LTG: SOCORRO will increase L warp picker strength to 40 lbs to increase I with manipulating heavier objects to complete work and home tasks in 8 weeks. LTG: SOCORRO will demonstrate improved functional independence at home by a decreased DASH score to under 45 % by 8 weeks. LTG: SOCORRO to improve L hand coordination by decreasing 9HPT time to under 60 seconds with no drops to improve manipulation of small objects. LTG: SOCORRO will demo increased L UE ROM to WFL with no involuntary finger curling by 8 weeks. Motor Function/Control/Tone: Assessment Pt demos difficulty with light orange resistance this date but demos ability to complete HEP. Pt requires repositioning each time on SHR for fingers d/t curling with sup/pro. Adult Risk Screening Initial Fall Risk Screening: SOCORRO has fallen in the last 6 months. Her fall did not result in injury. SOCORRO does not have a fear of falling. She does not need assistance with sitting, standing or walking. Does not need assistance walking in her home. She does not need assistance in an unfamiliar setting. The patient is not using an assistive device. Fall Risk Screening: Patient is identified as a fall risk. Care Plan: Low Risk: Environmental for all patients and low risk patients: Offer assistance as needed or requested, keep environment free of obstacles, keep floor clean and dry, keep room lighting, wheelchair brakes on, bed/ stretcher locked and in low position if applicable, non-slip footwear if applicable, walker/cane available if needed, side rails up if applicable and pre-emptive toileting. The pain makes it hard for the patient to do these things: house work and self-care (bathing, dressing, eating). Insurance Insurance reviewed Visit number: 3 Approved number of visits: 20 Authorization date range: year [employer] [place] 07/13 Subjective Patient reports:. Pt reporting ROM exercises for shoulder and elbow have been going well. Fall Risk: low Objective ROM/JointMobility: (Range of Motion in degrees) Shoulder: (Mccray: P! Denotes Pain with Movement, * Indicates [place] Resistant Otherwise Measurements are in Supine) Flexion: L Active 0-110. ABDuction: L Active 0-75. Hand up back: WFL. Hand behind head: WFL. Scratch behind opposite shoulder: unable but much closer. Pt demos ability to touch top of head, hips and middle of back. Elbow: (Mccray = P! Denotes Pain with Movement) Extension: L Active -5. Flexion: L Active 20-WNL. Some catching with elbow extension. Wrist: (Mccray = P! Denotes Pain with Movement) Extension: R Active 0-60, L Active 0-60. Flexion: R Active 0-80, L Active 0-65. Supination: R Active 0-180 and L Active 0-175. No finger curling with supination MIld curling with wrist extension. Hand: (Mccray: Ext/Flex Finger abbrev. IF, MF, RF, SF P! Denotes Pain with Movement + Hypertension, - Extension Deficit) Thumb: Thumb opposition to all finger. Strength: Shoulders: (Mccray: P! Denotes Pain with Movement) Shoulder strength was normal on the right side. Hands (Mccray: P! Denotes Pain with Movement) Hand Dominance: Right Net Application Architect Strength: level III 62 lbs on the right and level III 33 lbs on the left. The mccray pinch trials for the right 14 lbs and left 8 lbs. 3 Point Pinch: right 15 lbs and left 5 lbs. Additional Findings: L shoulder flexion 4+/5 L shoulder extension 4+/5 L elbow flexion 4+/5 L elbow extension 4/5 L wrist extension 4+/5 L wrist flexion 4+/5. Coordination and Manual Dexterity: 9 Hole Peg Test: 25.3 seconds on right, 1 min 15 seconds seconds on the left 1 drops on L. Outcome Measures: Quick Dash score: 61.36 Treatment Time in clinic started at 1515 pm Time in clinic ended at 1600 pm Total time in clinic is 45 minutes. Total timed code time is 43 minutes. Therapeutic exercise (54049): timed minutes 28 . 7029-0523 HEP education and demo with light orange theraband for wrist, elbow and shoulder x15 . Therapeutic Activity (15684): timed minutes 15 . 5309-4374 ROM arc with finger to thumb opposition for each ring with middle and small attachment 2586-5096 SHR with no resistance for sup/pro with dowel down board x1. 'Scores and Scales' Signatures Electronically signed by : TANIA Gutierrez/Lesley; Aug 13 2022 5:34PM EST (Author) Normal [employer] PT Progress Noteon 3 PT Progress Note Therapy Diagnosis Assessed Contracture, unspecified ankle (718.47) (M24.573) Unspecified abnormalities of gait and mobility (781.2) (R26.9) Multiple sclerosis (340) (G35) Plan Goals: Goals set and discussed today. In 2 weeks, pt will be IND and compliant with HEP for participation throughout POC. met In 4 weeks, pt will score 11 /30 on the FGA for safety with ADLs. met In 4 weeks, pt will demo 3 /5 MMT of L ankle for gait mechanics. not met Balance: UPDATED 03/05: In 3 weeks, pt will score 25/30 or higher on FGA for household and community navigation. not met In 8 weeks, pt will score 15 /30 on the FGA for safety with ambulation., goal met Strength: In 8 weeks, pt will demo 5/5 MMT L hip and knee for ease with stair negotiation. Planned interventions include: education/instruction, gait training, home program, neuromuscular re-education, self care/home management, therapeutic activities and therapeutic exercises. Frequency and duration:. every other week for 8 weeks = 4 visits. Potential to achieve rehab goals is good Cont neuro re-ed and functional strengthening to improve safety with household and community navigation. Assessment Patient confirmed name and date of this session. Pt with extreme difficulty with TRX SL squats on LLE d/t weakness and balance- min A required while performing. She demos good eccentric control throughout. VCs to allow equal WBing with tall kneel hip ext, squat, and leg press as she tends to WB mainly on RLE. Adult Risk Screening There are no spiritual/cultural practices/values/needs that are important to know Initial Fall Risk Screening: SOCORRO has fallen in the last 6 months. She has fallen due to toes curl under while outside. Her fall did not result in injury. SOCORRO does not have a fear of falling. She does not need assistance with sitting, standing or walking. Does not need assistance walking in her home. She does not need assistance in an unfamiliar setting. The patient is not using an assistive device. Care Plan: High Risk: Low and Moderate risk interventions plus: ensure patient is escorted at all times, do not leave unattended, inform provider of high risk status, discharge by wheelchair or escort assistance, room location, sitter, pre and post sedation/procedure standards, supervised toileting. Moderate: fall in last 6 months or fear of falling. High: multiple falls within the last 6 months. Insurance Insurance reviewed Visit number: 14 Approved number of visits: 20 per year 2022 visit count: 07/01 Insurance: medical mutual Evaluating therapist: Monik Mar PT, DPT PT dx: G35, R26.9 Subjective Patient reports:. Pt denies new falls since last visit. States she has gotten better at activities with eyes closed since last visit. Home program performing as directed: Yes. Precautions: Fall Risk: high Treatment Time in clinic started at 4:00 pm Time in clinic ended at 4:45 pm Total time in clinic is 45 minutes. Total timed code time is 42 minutes. Therapeutic exercise (47482): timed minutes 25, units 2 . *See NMR Below* *See Ther Activities* Sci Fit /Nu Step L1 5 mins Leg press 60# 2x10 STS LLE back x10 standard height chair (X) Resisted STS lowered plinth x10 (N) Squat x20 Lunges fwd x10 ea Lunges lat with yellow loop x10 ea (P) Side steps yellow loop 3 laps TRX SL squat x10 ea (N) Plantigrade fire hydrant 2 x 10 ea (X) Plantigrade donkey kick 2 x 10 ea (X). Neuromuscular Re-education (90651): timed minutes 17, units 1 . Star taps to certain colors with certain foot AND cone (PT tells pt color and foot to tap- 1 sequencing) Hurdles sm LLE lead, RLE lead, side x1 lap ea (N) Standing step lat over 1 rona with weight through stance leg x10 ea (N) Tall kneel hip ext x10 (N) NOT TODAY Staggered stance with arm swing x15 ea Ball toss x2 min Cone taps x2 min 1/2 kneel B on red mat -trunk rotations x10 ea Tall kneel -B UE flexion to 90* 2x10 -Alt UE flexion to 90* 2x10. Therapeutic Activity (17819):. Transfer training on and off floor with red mat on floor. (N) GAIT BELT Getting on to floor: (with assist of plinth) (X) - Stand -> half knee with R in front - 1/2 kneel to tall knee - tall knee to hands and knees - hands and knees to sitting Getting off floor: - Reverse the above. Provided today:. 03/21/22 HEP HO given plantigrade firehydrant and donkey kick, squat, lunges 03/05/22 HEP HO given STS. 'Scores and Scales' Signatures Electronically signed by : Monik Mar PT; Aug 06 2022 4:56PM EST (Author) Normal [facility] OT Progress Noteon 3 OT Progress Note Therapy Diagnosis Assessed Muscle weakness of left arm (728.87) (M62.81) Fine motor impairment (V49.89) (R29.818,R29.898) Contracture of muscle, left upper arm (728.85) (M62.422) Plan Goals: Goals set and discussed today. STG: SOCORRO will demonstrate good carryover of HEP for ROM, strengthening and coordination in order to improve functional independence at home/work by 2 weeks. LTG: SOCORRO will increase L warp picker strength to 40 lbs to increase I with manipulating heavier objects to complete work and home tasks in 8 weeks. LTG: SOCORRO will demonstrate improved functional independence at home by a decreased DASH score to under 45 % by 8 weeks. LTG: SOCORRO to improve L hand coordination by decreasing 9HPT time to under 60 seconds with no drops to improve manipulation of small objects. LTG: SOCORRO will demo increased L UE ROM to WFL with no involuntary finger curling by 8 weeks. Motor Function/Control/Tone: Assessment Pt reporting need for hot pack to increase muscle ROM prior to activity. Pt demos need for increased time for wooden peg placement. Pt demos need for activity modification with HH. Adult Risk Screening Initial Fall Risk Screening: SOCORRO has fallen in the last 6 months. Her fall did not result in injury. SOCORRO does not have a fear of falling. She does not need assistance with sitting, standing or walking. Does not need assistance walking in her home. She does not need assistance in an unfamiliar setting. The patient is not using an assistive device. Fall Risk Screening: Patient is identified as a fall risk. Care Plan: Low Risk: Environmental for all patients and low risk patients: Offer assistance as needed or requested, keep environment free of obstacles, keep floor clean and dry, keep room lighting, wheelchair brakes on, bed/ stretcher locked and in low position if applicable, non-slip footwear if applicable, walker/cane available if needed, side rails up if applicable and pre-emptive toileting. The pain makes it hard for the patient to do these things: house work and self-care (bathing, dressing, eating). Insurance Insurance reviewed Visit number: 2 Approved number of visits: 20 Authorization date range: year [facility] 06/15 Subjective Patient reports:. Pt reporting some stiffness and pain in L hand this date. pt reporting she has used it a lot today. Pt reporting HEP is going well. Fall Risk: low Objective ROM/JointMobility: (Range of Motion in degrees) Shoulder: (Mccray: P! Denotes Pain with Movement, * Indicates Marianna Resistant Otherwise Measurements are in Supine) Flexion: L Active 0-110. ABDuction: L Active 0-75. Hand up back: WFL. Hand behind head: WFL. Scratch behind opposite shoulder: unable but much closer. Pt demos ability to touch top of head, hips and middle of back. Elbow: (Mccray = P! Denotes Pain with Movement) Extension: L Active -5. Flexion: L Active 20-WNL. Some catching with elbow extension. Wrist: (Mccray = P! Denotes Pain with Movement) Extension: R Active 0-60, L Active 0-60. Flexion: R Active 0-80, L Active 0-65. Supination: R Active 0-180 and L Active 0-175. No finger curling with supination MIld curling with wrist extension. Hand: (Mccray: Ext/Flex Finger abbrev. IF, MF, RF, SF P! Denotes Pain with Movement + Hypertension, - Extension Deficit) Thumb: Thumb opposition to all finger. Strength: Shoulders: (Mccray: P! Denotes Pain with Movement) Shoulder strength was normal on the right side. Hands (Cmcray: P! Denotes Pain with Movement) Hand Dominance: Right [employer] Strength: level III 62 lbs on the right and level III 33 lbs on the left. The mccray pinch trials for the right 14 lbs and left 8 lbs. 3 Point Pinch: right 15 lbs and left 5 lbs. Additional Findings: L shoulder flexion 4+/5 L shoulder extension 4+/5 L elbow flexion 4+/5 L elbow extension 4/5 L wrist extension 4+/5 L wrist flexion 4+/5. Coordination and Manual Dexterity: 9 Hole Peg Test: 25.3 seconds on right, 1 min 15 seconds seconds on the left 1 drops on L. Outcome Measures: Quick Dash score: 61.36 Treatment Time in clinic started at 1515 pm Time in clinic ended at 1600 pm Total time in clinic is 45 minutes. Total timed code time is 43 minutes. Modalities: untimed minutes 5 . [id number] Hot pack donned to loosen muscles and increase ROM for activity. Therapeutic Activity (02128): timed minutes 43 . 0312-0025 Hot pack donned to loosen muscles and increase ROM for activity AAROM over 11lb ball to increase wrist and finger ROM FMC putting wooden pegs into board FMC putting colored rings around pegs with finger to thumb opposition by color HH stacking 1 inch blocks. 'Scores and Scales' Signatures Electronically signed by : TANIA Gutierrez/Lesley; Aug 01 2022 10:01AM EST (Author) Normal [facility] PT Progress Noteon 3 PT Progress Note Therapy Diagnosis Assessed Contracture, unspecified ankle (718.47) (M24.573) Unspecified abnormalities of gait and mobility (781.2) (R26.9) Multiple sclerosis (340) (G35) Plan Goals: Goals set and discussed today. In 2 weeks, pt will be IND and compliant with HEP for participation throughout POC. met In 4 weeks, pt will score 11 /30 on the FGA for safety with ADLs. met In 4 weeks, pt will demo 3 /5 MMT of L ankle for gait mechanics. not met Balance: UPDATED 03/05: In 3 weeks, pt will score 25/30 or higher on FGA for household and community navigation. not met In 8 weeks, pt will score 15 /30 on the FGA for safety with ambulation., goal met Strength: In 8 weeks, pt will demo 5/5 MMT L hip and knee for ease with stair negotiation. Planned interventions include: education/instruction, gait training, home program, neuromuscular re-education, self care/home management, therapeutic activities and therapeutic exercises. Frequency and duration:. every other week for 8 weeks = 4 visits. Potential to achieve rehab goals is good Cont functional strengthening and neuro re-ed to improve safety with household and community ambulation. Assessment Patient confirmed name and date of this session. Gait belt throughout session. Pt requires intermittent UE support during all activities d/t balance deficits. During squats and leg press pt tends to put more weight on RLE vs LLE despite VCs. STS with LLE further back than R to target L strengthening. Adult Risk Screening There are no spiritual/cultural practices/values/needs that are important to know Initial Fall Risk Screening: SOCORRO has fallen in the last 6 months. She has fallen due to toes curl under while outside. Her fall did not result in injury. SOCORRO does not have a fear of falling. She does not need assistance with sitting, standing or walking. Does not need assistance walking in her home. She does not need assistance in an unfamiliar setting. The patient is not using an assistive device. Care Plan: High Risk: Low and Moderate risk interventions plus: ensure patient is escorted at all times, do not leave unattended, inform provider of high risk status, discharge by wheelchair or escort assistance, room location, sitter, pre and post sedation/procedure standards, supervised toileting. Moderate: fall in last 6 months or fear of falling. High: multiple falls within the last 6 months. Insurance Insurance reviewed Visit number: 13 Approved number of visits: 20 per year 2022 visit count: 07/01 Insurance: medical mutual Evaluating therapist: Monik Mar PT, DPT PT dx: G35, R26.9 Subjective Patient reports:. No new falls since last session. She reports scheduling appt with [facility] for next Fri. Home program performing as directed: Yes. Precautions: Fall Risk: high Treatment Time in clinic started at 4:00 pm Time in clinic ended at 4:41 pm Total time in clinic is 41 minutes. Total timed code time is 40 minutes. Therapeutic exercise (89430): timed minutes 25, units 2 . *See NMR Below* *See Ther Activities* Sci Fit /Nu Step L1 5 mins Leg press 60# 2x10 (N) STS LLE back x10 standard height chair Standing hip abduction 2# x15 (X) Standing hip extension 2# x15 (X) Mini squat x20 Lunges fwd/lat x15 ea Plantigrade fire hydrant 2 x 10 ea Plantigrade donkey kick 2 x 10 ea. Neuromuscular Re-education (64310): timed minutes 15, units 1 . Staggered stance with arm swing x15 ea Ball toss x2 min Cone taps x2 min Star taps to certain colors with certain foot (PT tells pt color and foot to tap- 1 and 2 sequencing) 1/2 kneel B on red mat -trunk rotations x10 ea Tall kneel -B UE flexion to 90* 2x10 -Alt UE flexion to 90* 2x10 NOT TODAY Obstacle course which finding all cones (N) -Step over objects (X) -Step over small hurdles, L/R (N) -Step on foam surface (tandem stance) -Stairs -Side step, bkwd amb(X) -Weave between cones -step on stars (N). Therapeutic Activity (95922):. Transfer training on and off floor with red mat on floor. (N) GAIT BELT Getting on to floor: (with assist of plinth) (X) - Stand -> half knee with R in front - 1/2 kneel to tall knee - tall knee to hands and knees - hands and knees to sitting Getting off floor: - Reverse the above. Provided today:. 03/21/22 HEP HO given plantigrade firehydrant and donkey kick, squat, lunges 03/05/22 HEP HO given STS. 'Scores and Scales' Signatures Electronically signed by : Monik Mar, PT; Jul 23 2022 4:42PM EST (Author) [facility] OT Initial Evalutationon OT Initial Evalutation Therapy Diagnosis Assessed Contracture of muscle, left upper arm (728.85) (M62.422) Fine motor impairment (V49.89) (R29.818,R29.898) Muscle weakness of left arm (728.87) (M62.81) Plan of Care Goals: Goals set and discussed today. STG: SOCORRO will demonstrate good carryover of HEP for ROM, strengthening and coordination in order to improve functional independence at home/work by 2 weeks. LTG: SOCORRO will increase L warp picker strength to 40 lbs to increase I with manipulating heavier objects to complete work and home tasks in 8 weeks. LTG: SOCORRO will demonstrate improved functional independence at home by a decreased DASH score to under 45 % by 8 weeks. LTG: SOCORRO to improve L hand coordination by decreasing 9HPT time to under 60 seconds with no drops to improve manipulation of small objects. LTG: SOCORRO will demo increased L UE ROM to WFL with no involuntary finger curling by 8 weeks. Motor Function/Control/Tone: Intervention plan include: hot pack , paraffin , education/instruction , home program , manual therapy , neuromuscular re-education , therapeutic activities and therapeutic exercises. Frequency and duration: for weeks, for 4 visits . 1x/week every 2 weeks. Potential to achieve rehab goals is good. Plan of care was developed with input and agreement by the patient. Assessment SOCORRO GRACE was evaluated today for muscle weakness of LUE s/t multiple sclerosis . SOCORRO presents with deficits in warp picker strength, FMC, ADLs/IADLs as indicated by quickdash. SOCORRO would benefit from regular outpatient OT x1 / 2 weeks for 8 weeks in order to improve AROM/PROM, strengthening, coordination, scar management and activity tolerance to improve functional independence in ADLs/IADLs. Pt was previously seen for signs and symptoms of this condition and demonstrated good progression toward goals. SOCORRO GRACE presents with good prognosis considering supportive factors such as level of motivation and presentation of symptoms with consideration of progression of disease SOCORRO GRACE presents with good understanding and teach back of today's education and provides input into goals/POC. Interdisciplinary Team Communication: occupational therapy . Clinical Presentation: evolving with changing characteristics Problems To Be Addressed: decreased ADL performance, decreased IADL performance, decreased rest/sleep, decreased coordination, decreased motor skills, decreased knowledge of HEP, decreased ROM/joint mobility, decreased strength and fall risk. Adult Risk Screening Initial Fall Risk Screening: SOCORRO has fallen in the last 6 months. Her fall did not result in injury. SOCORRO does not have a fear of falling. She does not need assistance with sitting, standing or walking. Does not need assistance walking in her home. She does not need assistance in an unfamiliar setting. The patient is not using an assistive device. Fall Risk Screening: Patient is identified as a fall risk. Care Plan: Low Risk: Environmental for all patients and low risk patients: Offer assistance as needed or requested, keep environment free of obstacles, keep floor clean and dry, keep room lighting, wheelchair brakes on, bed/ stretcher locked and in low position if applicable, non-slip footwear if applicable, walker/cane available if needed, side rails up if applicable and pre-emptive toileting. The pain makes it hard for the patient to do these things: house work and self-care (bathing, dressing, eating). Insurance Insurance reviewed Visit number: 1 Approved number of visits: 20 Authorization date range: year [facility] Subjective Patient reports: Pt presenting to OT this date with updated script. Pt reports she has had a fall recently reports about a month ago but reports only soreness. Pt reports she sees her [place] physician every 3 months. Pt reporting she has had a recent Pt reports going outside, taking her dog out, pulling weeds, going down to the basement are all difficult things for her. Fall Risk: low Functional Assessment and Medical Management Prior Level of Function: independent. Roles, Rituals, Routines: spouse Patient stated goal(s) for treatment include: increasing strength, home management and returning to prior level of function. Current Status: condition of patient is improving. Objective ROM/JointMobility: (Range of Motion in degrees) Shoulder: (Mccray: P! Denotes Pain with Movement, * Indicates Marianna Resistant Otherwise Measurements are in Supine) Flexion: L Active 0-110. ABDuction: L Active 0-75. Hand up back: WFL. Hand behind head: WFL. Scratch behind opposite shoulder: unable but much closer. Pt demos ability to touch top of head, hips and middle of back. Elbow: (Mccray = P! Denotes Pain with Movement) Extension: L Active -5. Flexion: L Active 20-WNL. Some catching with elbow extension. Wrist: (Mccray = P! Denotes Pain with Movement) Extension: R Active 0-60, L Active 0-60. Flexion: R Active 0-80, L Active 0-65. Supination (more content not included)... [facility] PT Progress Noteon 3 PT Progress Note Therapy Diagnosis Assessed Contracture, unspecified ankle (718.47) (M24.573) Unspecified abnormalities of gait and mobility (781.2) (R26.9) Multiple sclerosis (340) (G35) Plan Goals: Goals set and discussed today. In 2 weeks, pt will be IND and compliant with HEP for participation throughout POC. met In 4 weeks, pt will score 11 /30 on the FGA for safety with ADLs. met In 4 weeks, pt will demo 3 /5 MMT of L ankle for gait mechanics. not met Balance: UPDATED 03/05: In 3 weeks, pt will score 25/30 or higher on FGA for household and community navigation. not met In 8 weeks, pt will score 15 /30 on the FGA for safety with ambulation., goal met Strength: In 8 weeks, pt will demo 5/5 MMT L hip and knee for ease with stair negotiation. Planned interventions include: education/instruction, gait training, home program, neuromuscular re-education, self care/home management, therapeutic activities and therapeutic exercises. Frequency and duration:. every other week for 8 weeks = 4 visits. Potential to achieve rehab goals is good Functional strengthening and neuro re-ed for floor transfers and improved gait mechanics. Assessment Patient confirmed name and date of this session. Pt arrives with updated script for the same issues being addressed previously. She has not attended PT services since 05/01/22 and all objective info today is compared to her most previous recheck 03/28/22. Ms. Grace arrives today with limitations in balance and strength which are similar to her last recheck. Her AFO does appear slightly too narrow as she does have a low arch with flat feet on the L. Educated pt on benefit of AFO vs brace especially with L foot eversion and dorsiflexion, which are both very weak. Pt recommended to utilize [employer] for a custom AFO and to obtain brace over the counter. PT plans to contact physician for script for AFO. Pt will benefit from skilled PT to address LE strength and balance as well as learn to mobilize with AFO to improve gait mechanics and safety in the community. Pt with agreement and understanding. Adult Risk Screening There are no spiritual/cultural practices/values/needs that are important to know Initial Fall Risk Screening: SOCORRO has fallen in the last 6 months. She has fallen due to toes curl under while outside. Her fall did not result in injury. SOCORRO does not have a fear of falling. She does not need assistance with sitting, standing or walking. Does not need assistance walking in her home. She does not need assistance in an unfamiliar setting. The patient is not using an assistive device. Care Plan: High Risk: Low and Moderate risk interventions plus: ensure patient is escorted at all times, do not leave unattended, inform provider of high risk status, discharge by wheelchair or escort assistance, room location, sitter, pre and post sedation/procedure standards, supervised toileting. Moderate: fall in last 6 months or fear of falling. High: multiple falls within the last 6 months. Insurance Insurance reviewed Visit number: 12 Approved number of visits: 20 per year 2022 visit count: 05/31 Insurance: medical mutual Evaluating therapist: Monik Mar PT, DPT PT dx: G35, R26.9 Subjective Patient reports:. She states she has been working on balance a lot however thinks she can still improve on balance and strength. She does report she thinks she needs something to hold onto to get up off the ground but thinks this will be her baseline as she is very cautious. She arrives with AFO which she states is uncomfortable d/t cutting into medial foot. She would like to start wearing AFO more as she does not become fatigued as quick and has better gait with it. Home program performing as directed: Yes. Precautions: Fall Risk: high Objective Ortho MMT hip R- flex, abd, add 5/5 L- flex: 4 /5 > 4 /5 > 4+/5 > 4+ /5 > 4+ /5 abd: 4 /5 > 4/5 >4+ /5 > 4+/5 > 4+ /5 add: 4+ /5 > 4+ /5 > 5/5 > 5/5 > 5 /5 MMT knee R- flex: 5 /5 ext: 5 /5 L- flex: 4 / 5 > 4 /5 > 4+/5 > 5 /5 > 5 /5 ext: 5 /5 > 5 /5 >5 /5 > 5/5 > 5 /5 MMT ankle R- DF: 5 /5 EV: 5/5 L- DF: 3- /5 > 1 /5 > 2-/5 > 2- /5 > 2-/5 EV: 3-/5 > 1 /5 > 3+/5 > 2- /5 > 2-/5 FGA: 01/08 no AD gait belt > no AD gait belt > no AD, gait belt > NT > no AD, gait belt Gait: slight flexion synergy of LUE, dec step length R, dec stance time L, dec eversion and DF L Stairs: Ascending and descending- alt while holding rail, L hip circumduction Transfers: pt uses BUE support > able to perform with 0UE support, feet equal Pt tends to sit with L foot inverted She demos slight flexion synergy of LLE with exercises. Outcome Measures Functional Gait Assessment score: 01/08 > > > Treatment Time in clinic started at 3:33 pm Time in clinic ended at 4:12 pm Total time in clinic is 39 minutes. Total timed code time is 38 minutes. Therapeutic exercise (80272): timed minutes 38, units 3 . *See NMR Below* *Se (more content not included)... Normal [employer] [facility] Therapy Re-eval Noteon 06-25 Therapy Re-eval Note Therapy Diagnosis Assessed 1. Contracture, unspecified ankle (718.47) (M24.573) 2. Unspecified abnormalities of gait and mobility (781.2) (R26.9) 3. Multiple sclerosis (340) (G35) Plan Goals: Goals set and discussed today. In 2 weeks, pt will be IND and compliant with HEP for participation throughout POC. met In 4 weeks, pt will score 11 /30 on the FGA for safety with ADLs. met In 4 weeks, pt will demo 3 /5 MMT of L ankle for gait mechanics. not met Balance: UPDATED 03/05: In 3 weeks, pt will score 25/30 or higher on FGA for household and community navigation. not met In 8 weeks, pt will score 15 /30 on the FGA for safety with ambulation., goal met Strength: In 8 weeks, pt will demo 5/5 MMT L hip and knee for ease with stair negotiation. Planned interventions include: education/instruction, gait training, home program, neuromuscular re-education, self care/home management, therapeutic activities and therapeutic exercises. Frequency and duration:. every other week for 8 weeks = 4 visits. Potential to achieve rehab goals is good Functional strengthening and neuro re-ed for floor transfers and improved gait mechanics. Assessment Patient confirmed name and date of this session. Pt arrives with updated script for the same issues being addressed previously. She has not attended PT services since 05/01/22 and all objective info today is compared to her most previous recheck 03/28/22. Ms. Grace arrives today with limitations in balance and strength which are similar to her last recheck. Her AFO does appear slightly too narrow as she does have a low arch with flat feet on the L. Educated pt on benefit of AFO vs brace especially with L foot eversion and dorsiflexion, which are both very weak. Pt recommended to utilize [employer] for a custom AFO and to obtain brace over the counter. PT plans to contact physician for script for AFO. Pt will benefit from skilled PT to address LE strength and balance as well as learn to mobilize with AFO to improve gait mechanics and safety in the community. Pt with agreement and understanding. Adult Risk Screening There are no spiritual/cultural practices/values/needs that are important to know Initial Fall Risk Screening: SOCORRO has fallen in the last 6 months. She has fallen due to toes curl under while outside. Her fall did not result in injury. SOCORRO does not have a fear of falling. She does not need assistance with sitting, standing or walking. Does not need assistance walking in her home. She does not need assistance in an unfamiliar setting. The patient is not using an assistive device. Care Plan: High Risk: Low and Moderate risk interventions plus: ensure patient is escorted at all times, do not leave unattended, inform provider of high risk status, discharge by wheelchair or escort assistance, room location, sitter, pre and post sedation/procedure standards, supervised toileting. Moderate: fall in last 6 months or fear of falling. High: multiple falls within the last 6 months. Insurance Insurance reviewed Visit number: 12 Approved number of visits: 20 per year 2022 visit count: 05/31 Insurance: medical mutual Evaluating therapist: Monik Mar PT, DPT PT dx: G35, R26.9 Subjective Patient reports:. She states she has been working on balance a lot however thinks she can still improve on balance and strength. She does report she thinks she needs something to hold onto to get up off the ground but thinks this will be her baseline as she is very cautious. She arrives with AFO which she states is uncomfortable d/t cutting into medial foot. She would like to start wearing AFO more as she does not become fatigued as quick and has better gait with it. Home program performing as directed: Yes. Precautions: Fall Risk: high Objective Ortho MMT hip R- flex, abd, add 5/5 L- flex: 4 /5 > 4 /5 > 4+/5 > 4+ /5 > 4+ /5 abd: 4 /5 > 4/5 >4+ /5 > 4+/5 > 4+ /5 add: 4+ /5 > 4+ /5 > 5/5 > 5/5 > 5 /5 MMT knee R- flex: 5 /5 ext: 5 /5 L- flex: 4 / 5 > 4 /5 > 4+/5 > 5 /5 > 5 /5 ext: 5 /5 > 5 /5 >5 /5 > 5/5 > 5 /5 MMT ankle R- DF: 5 /5 EV: 5/5 L- DF: 3- /5 > 1 /5 > 2-/5 > 2- /5 > 2-/5 EV: 3-/5 > 1 /5 > 3+/5 > 2- /5 > 2-/5 FGA: 01/08 no AD gait belt > 1630 no AD gait belt > no AD, gait belt > NT > 18 30 no AD, gait belt Gait: slight flexion synergy of LUE, dec step length R, dec stance time L, dec eversion and DF L Stairs: Ascending and descending- alt while holding rail, L hip circumduction Transfers: pt uses BUE support > able to perform with 0UE support, feet equal Pt tends to sit with L foot inverted She demos slight flexion synergy of LLE with exercises. Outcome Measures Functional Gait Assessment score: 830 > 16/30 > 21/30 > 18/30 Treatment Time in clinic started at 3:33 pm Time in clinic ended at 4:12 pm Total time in clinic is 39 minutes. Total timed code time is 38 minutes. Therapeutic exercise (69847): timed minutes 38, units 3 . *See NMR Bel (more content not included)... [facility] Absolute lymphocyte countOrd ered By: Dr. Duarte on 06-22-2022 Lymphocytes Auto (Unsp spec) [#/Vol] 0.54 10*3/uL 0.83-4.51 [facility] Basophil percentageOrdered B y: Dr. Duarte on 06-22-2022 Basophils/100 WBC (Bld) 1.1 % 0-1 [facility] Bilirubin [Mass/Vol] 0.50 mg/dL 0.20-1.00 [facility] Comment on above: For patients on eltr ombopag therapy, use of Dimension [place] TBIL is not recommended. Chloride [Moles/Vol] 110 mmol/L 98-107 [facility] Eosinophils/100 WBC (Bld) 3.4 % 0-5 [facility] Glucose [Mass/Vol] 98 mg/dL 74-106 [facility] Neutrophils (Bld) [#/Vol] 3.0 10*3/uL 2.0-7.7 [facility] Neutrophils/100 WBC (Bld) 67.9 % 47-70 [facility] Potassium [Moles/Vol] 4.0 mmol/L 3.5-5.1 [facility] Protein [Mass/Vol] 7.4 g/dL 6.4-8.2 [facility] Sodium [Moles/Vol] 141 mmol/L 136-145 [facility] WBC (Bld) [#/Vol] 4.4 10*3/uL 4.4-11.0 [facility] Blood erythrocytes count (nu mber/volume)Ordered By: Dr. Duarte on 06-22-2022 RBC (Bld) [#/Vol] 4.66 10*6/uL 4.2-5.4 [facility] Blood hemoglobin measurement (mass/volume)Ordered By: Dr. Duarte on 06-22-2022 Hemoglobin (Bld) [Mass/Vol] 13.1 g/dL 12.0-15.0 [facility] Blood lymphocytes/100 leukoc ytesOrdered By: Dr. Duarte on 06-22-2022 Lymphocytes/100 WBC (Bld) 12.4 % 19-41 [facility] Blood manual differential co mment interpretation (narrative result)Ordered By: Dr. Duarte on 06-22-2022 Manual differential comment Marcelo (Bld) [Interp] SCANNED [facility] Blood monocytes/100 leukocyt esOrdered By: Dr. Duarte on 06-22-2022 Monocytes/100 WBC (Bld) 14.7 % 0-10 [facility] Blood platelet mean volumeOr dered By: Dr. Duarte on 06-22-2022 Platelet mean volume (Bld) [Entitic vol] 9.1 fL 6.2-12.0 [facility] Determination of erythrocyte mean corpuscular volume (MCV)Ordered By: Dr. Duarte on 06-22-2022 MCV (RBC) [Entitic vol] 86.5 fL 81-99 [facility] Hematocrit Auto (Bld) [Volum e fraction]Ordered By: Dr. Duarte on 06-22-2022 Hematocrit (Bld) [Volume fraction] 40.3 % 37-47 [facility] Laboratory - Chemistry and C hemistry - challengeOrdered By: Dr. Duarte on 06-22-2022 ALP [Catalytic activity/Vol] 95 U/L 45-117 [facility] ALT [Catalytic activity/Vol] 41 U/L 13-56 [facility] CO2 [Moles/Vol] 26.0 mmol/L 21.0-32.0 [facility] Globulin (S) [Mass/Vol] 3.6 g/dL 2.2-4.2 [facility] Magnesium [Mass/Vol] 2.2 mg/dL 1.6-2.6 [facility] Urea nitrogen/Creatinine [Mass ratio] 19.7 mg/mg 10-20 [facility] Laboratory - Hematology and Cell countsOrdered By: Dr. Duarte on 06-22-2022 Erythrocyte distribution width (RBC) [Entitic vol] 40.6 fL 35.1-43.9 [facility] Erythrocyte distribution width (RBC) [Ratio] 13.1 % 11.6-14.6 [facility] Immature granulocytes/100 WBC (Bld) 0.500 % 0.0-0.9 [facility] Comment on above: IG% - Immature Granu locytes (promyelocytes, myelocytes and metamyelocytes) > 1% indicates that a LEFT SHIFT is Present. MCH (RBC) [Entitic mass] 28.1 pg 27.0-32.0 [facility] Nucleated RBC/100 WBC (Bld) [Ratio] 0 % 0-5 [facility] MCHC Auto (RBC) [Mass/Vol]Or dered By: Dr. Duarte on 06-22-2022 MCHC (RBC) [Mass/Vol] 32.5 g/dL 32-36 [facility] No Panel InformationOrdered By: Dr. Duarte on 06-22-2022 Estimated GFR (MDRD) Amer 109 mL/min >60 [facility] Comment on above: GFR Calc Estimated GFR (MDRD) Non-Af Amer 90 mL/min >60 [facility] Comment on above: Non- GFR Calc Platelets bldOrdered By: Dr. Duarte on 06-22-2022 Platelets (Bld) [#/Vol] 249 10*3/uL 150-450 [facility] Serum or plasma albumin rigoberto urement (mass/volume)Ordered By: Dr. Duarte on 06-22-2022 Albumin [Mass/Vol] 3.8 g/dL 3.2-5.0 [facility] Serum or plasma albumin/glob ulin mass ratioOrdered By: Dr. Duarte on 06-22-2022 Albumin/Globulin [Mass ratio] 1.1 {ratio} 0.9-2.4 [facility] Serum or plasma calcitriol m easurement (mass/volume)Ordered By: Dr. Duarte on 06-22-2022 1,25-dihydroxyvitamin D3 [Mass/Vol] 52.8 pg/mL 24.8-81.5 [facility] Comment on above: Performed at: - [address] [id number] Director: Sinhdu Weaver MD, Phone: [phone] Serum or plasma calcium rigoberto urement (mass/volume)Ordered By: Dr. Duarte on 06-22-2022 Calcium [Mass/Vol] 9.2 mg/dL 8.5-10.1 [facility] Serum or plasma creatinine m easurement (mass/volume)Ordered By: Dr. Duarte on 06-22-2022 Creatinine [Mass/Vol] 0.71 mg/dL 0.55-1.02 [facility] Comment on above: The validity of the calculated GFR & GFRAA in patients over 70 years has not been determined. Clinical correlation is essential. Serum or plasma urea nitroge n measurement (mass/volume)Ordered By: Dr. Duarte on 06-22-2022 Urea nitrogen [Mass/Vol] 14 mg/dL 7-18 [facility] Thin prep Papanicolaou smear with manual screeningOrdered By: Dr. 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 Signatures Electronically signed by : TANIA Gutierrez/Lesley; Jun 18 2022 10:50AM EST (Author) [facility] Therapy Communicationon 12-2 Therapy Communication Message SOCORRO SANJAY canceled today . Appt cancelled secondary to illness. Signatures Electronically signed by : Aracelis Mg PTA; May 09 2022 5:24PM EST (Author) [facility] Therapy Communication Message SOCORRO SANJAY canceled today 05/09/22. d/t illness. Signatures Electronically signed by : RISHI Hart/Lesley; May 09 2022 1:48PM EST (Author) Normal [facility] OT Progress Noteon 2 OT Progress Note Therapy Diagnosis Assessed Contracture of muscle, left upper arm (728.85) (M62.422) Fine motor impairment (V49.89) (R29.818,R29.898) Muscle weakness of left arm (728.87) (M62.81) Plan Goals: Goals set and discussed today. STG: SOCORRO will demonstrate good carryover of HEP for ROM, strengthening and coordination in order to improve functional independence at home/work by 2 weeks. 03/28 Pt reporting good carryover of HEP, completes each 1x/day LTG: SOCORRO to improve L hand coordination by decreasing 9HPT time under 90 seconds with no drops to improve manipulation of small objects by 6 weeks. 03/28 76 seconds this date, GOAL MET upgrade to under 60 seconds LTG: SOCORRO will demonstrate improved functional independence at home by a decreased DASH score by 25 % by 6 weeks. 03/28 Decrease of 9% this date, CONTINUE LTG: SOCORRO will demonstrate all LUE muscle movements to 4-/5 or better by 6 weeks. 03/28 LUE 4+/5, GOAL MET LTG: SOCORRO will increase L warp picker strength by 15 lbs to increase I with manipulating heavier objects to complete work and home tasks in 6 weeks. 03/28 Increase of 18lbs this date, GOAL MET, increase to 35 lbs overall LTG:SOCORRO will demonstrate WFL ROM of LUE by 6 weeks to faciliate increased independence with ADLs. 03/28 WFL aside from reaching LUE to R shoulder, CONTINUE Motor Function/Control/Tone: Intervention plan include: hot pack , paraffin , ADLs, education/instruction , home program , manual therapy , therapeutic activities and therapeutic exercises. Frequency and duration: 1 time(s) a week, for 6 weeks, for 6 visits. Potential to achieve rehab goals is good. Progress with POC, as tolerated. Assessment Extended time required for peg activity d/t decreased FMC. patient states she feels like hand is locking up when using D1/D5 to pinch pegs. Adult Risk Screening There are no spiritual/cultural practices/values/needs that are important to know Initial Fall Risk Screening: SOCORRO has fallen in the last 6 months. She has fallen due to d/t LLE tightness. Her fall did not result in injury. SOCORRO does not have a fear of falling. She does not need assistance with sitting, standing or walking. Does not need assistance walking in her home. She needs assistance in an unfamiliar setting. The patient is not using an assistive device. Living Will. Living Will: Living will on file. Did not bring. Healthcare POA: Health care proxy on file. Did not bring. Declaration of Mental Health Treatment: No mental health treatment on file. Insurance Insurance reviewed Visit number: 7 Approved number of visits: 40 OT/PT [facility] OT/PT hard 40 Onset Date: 2021 Subjective Patient reports:. No pain this date. Patient states she ordered digit cargo agent and is having trouble with the lightest one. Fall Risk: moderate Objective ROM/JointMobility: (Range of Motion in degrees) Shoulder: (Mccray: P! Denotes Pain with Movement, * Indicates [place] Resistant Otherwise Measurements are in Supine) Flexion: L Active 0-110. ABDuction: L Active 0-75. Hand up back: WFL. Hand behind head: WFL. Scratch behind opposite shoulder: unable but much closer. Elbow: (Mccray = P! Denotes Pain with Movement) Extension: L Active -5. Flexion: L Active 20-WNL. Some catching with elbow extension. Wrist: (Mccray = P! Denotes Pain with Movement) Extension: R Active 0-60, L Active 0-60. Flexion: R Active 0-80, L Active 0-65. Supination: R Active 0-180 and L Active 0-175. No finger curling with wrist extension or supination. Hand: (Mccray: Ext/Flex Finger abbrev. IF, MF, RF, SF P! Denotes Pain with Movement + Hypertension, - Extension Deficit) Thumb: Thumb opposition to all finger. Strength: Shoulders: (Mccray: P! Denotes Pain with Movement) Shoulder strength was normal on the right side. Hands (Mccray: P! Denotes Pain with Movement) Hand Dominance: Right Net Application Architect Strength: level III 60 lbs on the right and level III 29 lbs on the left. The mccray pinch trials for the right 14 lbs and left 7 lbs. 3 Point Pinch: right 15 lbs and left 5 lbs. Additional Findings: L shoulder flexion 4+/5 L shoulder extension 4+/5 L elbow flexion 4+/5 L elbow extension 4+/5 L wrist extension 4+/5 L wrist flexion 4+/5. Coordination and Manual Dexterity: 9 Hole Peg Test: 23 seconds on right, 1 min 16 seconds seconds on the left 1 drops on L. Outcome Measures: Quick Dash score: 50.00 Treatment Time in clinic started at 1530 pm Time in clinic ended at 1615 pm Total time in clinic is 45 minutes. Total timed code time is 43 minutes. Modalities: untimed minutes 5 . [id number] -Hot pack donned to L hand prior to PROM, patient interview w/ hot pack donned. Therapeutic Activity (30905): timed minutes 43 . -Hot pack donned to L hand prior to PROM, patient interview w/ hot pack donned -R D1/ Alternating D2-D5 pinching mini pegs out of blue putty to place into pegboard x 25. 'Scor (more content not included)... Normal [employer] [facility] PT Progress Noteon 2 PT Progress Note Therapy Diagnosis Assessed Contracture, unspecified ankle (718.47) (M24.573) Unspecified abnormalities of gait and mobility (781.2) (R26.9) Plan Goals: Goals set and discussed today. In 2 weeks, pt will be IND and compliant with HEP for participation throughout POC. met In 4 weeks, pt will score 11 /30 on the FGA for safety with ADLs. met In 4 weeks, pt will demo 3 /5 MMT of L ankle for gait mechanics. not met Balance: UPDATED 03/05: In 3 weeks, pt will score 25/30 or higher on FGA for household and community navigation. In 8 weeks, pt will score 15 /30 on the FGA for safety with ambulation., goal met Strength: In 8 weeks, pt will demo 3+/5 MMT of L ankle and 5/5 MMT L hip and knee for ease with stair negotiation. , goal partially met Planned interventions include: education/instruction, gait training, home program, neuromuscular re-education, self care/home management, therapeutic activities and therapeutic exercises. Frequency and duration: 1 time(s) a week, for 6 weeks, for 6 visits. Potential to achieve rehab goals is good Plan to continue on working on activities to assist with floor transfers, ther ex's for strength and NMR for decreasing fall risk. Assessment Verbal/tactile cues needed with TE/NMRE. Pt. tries not to use UE support but is less steady with activities. Pt. struggles with leading with the LLE and with kneeling with left LE. Trial obstacle course with various things to step over or around which patient needs CGA with stepping over hurdles. Response to treatment: improved endurance and improved balance. Patient was able to complete today's treatment with some difficulty. Adult Risk Screening There are no spiritual/cultural practices/values/needs that are important to know Initial Fall Risk Screening: SOCORRO has fallen in the last 6 months. She has fallen due to toes curl under while outside. Her fall did not result in injury. SOCORRO does not have a fear of falling. She does not need assistance with sitting, standing or walking. Does not need assistance walking in her home. She does not need assistance in an unfamiliar setting. The patient is not using an assistive device. Care Plan: High Risk: Low and Moderate risk interventions plus: ensure patient is escorted at all times, do not leave unattended, inform provider of high risk status, discharge by wheelchair or escort assistance, room location, sitter, pre and post sedation/procedure standards, supervised toileting. Moderate: fall in last 6 months or fear of falling. High: multiple falls within the last 6 months. Insurance Insurance reviewed Visit number: 11 Approved number of visits: 40 Insurance: medical mutual Evaluating therapist: Monik Mar PT, DPT PT dx: G35, R26.9 Subjective Patient reports:. Pt. states she's doing fine today, no c/o pain. Home program performing as directed: Yes. Precautions: Fall Risk: high Treatment Time in clinic started at 4:15 pm Time in clinic ended at 5:03 pm Total time in clinic is 48 minutes. Total timed code time is 40 minutes. Therapeutic exercise (37162): timed minutes 15, units 1 . *See NMR Below* *See Ther Activities* Sci Fit /Nu Step L2 5 mins STS feet uneven x5, with feet even x5 (X) Standing hip abduction 2# x15 (X) Standing hip extension 2# x15 (X) Mini squat x20 (X) Lunges fwd/lat x15 ea (X) Plantigrade fire hydrant 2 x 10 ea Plantigrade donkey kick 2 x 10 ea. Neuromuscular Re-education (69866): timed minutes 25, units 2 . ON RED MAT- *GAIT BELT* /2 kneel with R LE in front: - B UE flexion to 90* x10 - Alt UE flexion to 90* x10 1/2 knee with L LE in front: - B UE flexion to 90* x10 - Alt UE flexion to 90* x10 Tall Kneel: reaching with each UE for cones x8 at different heights -reaching with LUE and place item to left of her on table(N) -Side steps x10 ft. x2 laps on turf (N) Below not done today: In // bars: Star taps to certain colors with certain foot (PT tells pt color and foot to tap- 1 and 2 sequencing) Tandem stance firm surface 2x20 ea B/L (X) Staggered stance with arm swing x15 ea (X) Grabbing different color cones from different height surfaces x2 min (PT says color to grab) Obstacle course which finding all cones (N) -Step over objects (X) -Step over small hurdles, L/R (N) -Step on foam surface (tandem stance) -Stairs -Side step, bkwd amb(X) -Weave between cones -step on stars (N). Therapeutic Activity (32060): timed minutes . Transfer training on and off floor with red mat on floor. (N) GAIT BELT Getting on to floor: (with assist of plinth) (X) - Stand -> half knee with R in front - 1/2 kneel to tall knee - tall knee to hands and knees - hands and knees to sitting Getting off floor: - Reverse the above. Provided today:. 03/21/22 HEP HO given plantigrade firehydrant and donkey kick, squat, lunges 03/05/22 HEP HO given STS. 'Scores and Scales' Signatures Electronically signed by : Elle (more content not included)... Normal [employer] Therapy Communicationon 04-11 Therapy Communication Message SOCORRO SANJAY canceled today 04/24/22. d/t illness. Signatures Electronically signed by : DIMPLE Hart; Apr 24 2022 2:01PM EST (Author) Normal [employer] Therapy Communication Message SOCORRO GRACE canceled today . No reason given. Signatures Electronically signed by : Yi Mcdaniel PTA; Apr 24 2022 1:01PM EST (Author) [facility] OT Progress Noteon 2 OT Progress Note Therapy Diagnosis Assessed Fine motor impairment (V49.89) (R29.818,R29.898) Contracture of muscle, left upper arm (728.85) (M62.422) Muscle weakness of left arm (728.87) (M62.81) Plan Goals: Goals set and discussed today. STG: SOCORRO will demonstrate good carryover of HEP for ROM, strengthening and coordination in order to improve functional independence at home/work by 2 weeks. 03/28 Pt reporting good carryover of HEP, completes each 1x/day LTG: SOCORRO to improve L hand coordination by decreasing 9HPT time under 90 seconds with no drops to improve manipulation of small objects by 6 weeks. 03/28 76 seconds this date, GOAL MET upgrade to under 60 seconds LTG: SOCORRO will demonstrate improved functional independence at home by a decreased DASH score by 25 % by 6 weeks. 03/28 Decrease of 9% this date, CONTINUE LTG: SOCORRO will demonstrate all LUE muscle movements to 4-/5 or better by 6 weeks. 03/28 LUE 4+/5, GOAL MET LTG: SOCORRO will increase L warp picker strength by 15 lbs to increase I with manipulating heavier objects to complete work and home tasks in 6 weeks. 03/28 Increase of 18lbs this date, GOAL MET, increase to 35 lbs overall LTG:SOCORRO will demonstrate WFL ROM of LUE by 6 weeks to faciliate increased independence with ADLs. 03/28 WFL aside from reaching LUE to R shoulder, CONTINUE Motor Function/Control/Tone: Intervention plan include: hot pack , paraffin , ADLs, education/instruction , home program , manual therapy , therapeutic activities and therapeutic exercises. Frequency and duration: 1 time(s) a week, for 6 weeks, for 6 visits. Potential to achieve rehab goals is good. Progress with POC, as tolerated. Assessment Extended time required for bolt activity d/t decreased ROM and strength of L hand. Adult Risk Screening There are no spiritual/cultural practices/values/needs that are important to know Initial Fall Risk Screening: SOCORRO has fallen in the last 6 months. She has fallen due to d/t LLE tightness. Her fall did not result in injury. SOCORRO does not have a fear of falling. She does not need assistance with sitting, standing or walking. Does not need assistance walking in her home. She needs assistance in an unfamiliar setting. The patient is not using an assistive device. Living Will. Living Will: Living will on file. Did not bring. Healthcare POA: Health care proxy on file. Did not bring. Declaration of Mental Health Treatment: No mental health treatment on file. Insurance Insurance reviewed Visit number: 6 Approved number of visits: 40 OT/PT 10/15 [facility] OT/PT hard 40 Onset Date: 2021 Subjective Patient reports:. No pain this date. Patient states she ordered digit cargo agent and is having trouble with the lightest one. Fall Risk: moderate Objective ROM/JointMobility: (Range of Motion in degrees) Shoulder: (Mccray: P! Denotes Pain with Movement, * Indicates [place] Resistant Otherwise Measurements are in Supine) Flexion: L Active 0-110. ABDuction: L Active 0-75. Hand up back: WFL. Hand behind head: WFL. Scratch behind opposite shoulder: unable but much closer. Elbow: (Mccray = P! Denotes Pain with Movement) Extension: L Active -5. Flexion: L Active 20-WNL. Some catching with elbow extension. Wrist: (Mccray = P! Denotes Pain with Movement) Extension: R Active 0-60, L Active 0-60. Flexion: R Active 0-80, L Active 0-65. Supination: R Active 0-180 and L Active 0-175. No finger curling with wrist extension or supination. Hand: (Mccray: Ext/Flex Finger abbrev. IF, MF, RF, SF P! Denotes Pain with Movement + Hypertension, - Extension Deficit) Thumb: Thumb opposition to all finger. Strength: Shoulders: (Mccray: P! Denotes Pain with Movement) Shoulder strength was normal on the right side. Hands (Mccray: P! Denotes Pain with Movement) Hand Dominance: Right Net Application Architect Strength: level III 60 lbs on the right and level III 29 lbs on the left. The mccray pinch trials for the right 14 lbs and left 7 lbs. 3 Point Pinch: right 15 lbs and left 5 lbs. Additional Findings: L shoulder flexion 4+/5 L shoulder extension 4+/5 L elbow flexion 4+/5 L elbow extension 4+/5 L wrist extension 4+/5 L wrist flexion 4+/5. Coordination and Manual Dexterity: 9 Hole Peg Test: 23 seconds on right, 1 min 16 seconds seconds on the left 1 drops on L. Outcome Measures: Quick Dash score: 50.00 Treatment Time in clinic started at 1500 pm Time in clinic ended at 1545 pm Total time in clinic is 45 minutes. Total timed code time is 43 minutes. Modalities: untimed minutes 5 . [id number] -Hot pack donned to L hand prior to PROM, patient interview w/ hot pack donned. Therapeutic Activity (16846): timed minutes 43 . -Hot pack donned to L hand prior to PROM, patient interview w/ hot pack donned -L hand D1/D2 placing bolts on/taking off screws x 10 each -L D1/D2 pinching pennies out of green putty to place in slotted container x 20 -L hand (more content not included)... Normal [facility] PT Progress Noteon 2 PT Progress Note No report was sent Normal [facility] PT Progress Note Therapy Diagnosis Assessed Contracture, unspecified ankle (718.47) (M24.573) Unspecified abnormalities of gait and mobility (781.2) (R26.9) Plan Goals: Goals set and discussed today. In 2 weeks, pt will be IND and compliant with HEP for participation throughout POC. met In 4 weeks, pt will score 11 /30 on the FGA for safety with ADLs. met In 4 weeks, pt will demo 3 /5 MMT of L ankle for gait mechanics. not met Balance: UPDATED 03/05: In 3 weeks, pt will score 25/30 or higher on FGA for household and community navigation. In 8 weeks, pt will score 15 /30 on the FGA for safety with ambulation., goal met Strength: In 8 weeks, pt will demo 3+/5 MMT of L ankle and 5/5 MMT L hip and knee for ease with stair negotiation. , goal partially met Planned interventions include: education/instruction, gait training, home program, neuromuscular re-education, self care/home management, therapeutic activities and therapeutic exercises. Frequency and duration: 1 time(s) a week, for 6 weeks, for 6 visits. Potential to achieve rehab goals is good Plan to continue on working on activities to assist with floor transfers, ther ex's for strength and NMR for decreasing fall risk. - MA. Assessment Patient identified by name AND . Patient wore a mask during treatment d/t Covid-19 precautions. Treatment consisted of ther ex's, NMR and ther activities. Initiated transfers to / from floor and NMR activities in 1/2 kneel and tall kneel. Min assist for floor <-> stand transfer. Patient did well with balance and transfers with quad fatigue noted. Adult Risk Screening There are no spiritual/cultural practices/values/needs that are important to know Initial Fall Risk Screening: SOCORRO has fallen in the last 6 months. She has fallen due to toes curl under while outside. Her fall did not result in injury. SOCORRO does not have a fear of falling. She does not need assistance with sitting, standing or walking. Does not need assistance walking in her home. She does not need assistance in an unfamiliar setting. The patient is not using an assistive device. Care Plan: High Risk: Low and Moderate risk interventions plus: ensure patient is escorted at all times, do not leave unattended, inform provider of high risk status, discharge by wheelchair or escort assistance, room location, sitter, pre and post sedation/procedure standards, supervised toileting. Moderate: fall in last 6 months or fear of falling. High: multiple falls within the last 6 months. Pain Scale: On a scale of 0 to 10, the patient rates the pain at 0. Insurance Insurance reviewed Visit number: 10 Approved number of visits: 40 Insurance: medical mutual Evaluating therapist: Monik Mar PT, BÁRBARA PT dx: G35, R26.9 Subjective Patient reports:. Pretreatment pain: 0/10 Post treatment pain: 0/10 Getting most of her HEP completed. Home program performing as directed: Partially. Precautions: Fall Risk: high Treatment Time in clinic started at 2:14 pm Time in clinic ended at 2:59 pm Total time in clinic is 45 minutes. Total timed code time is 42 minutes. Therapeutic exercise (12618): timed minutes 12, units 1 . *See NMR Below* *See Ther Activities* Sci Fit /Nu Step L2 5 mins STS feet uneven x5, with feet even x5 (X) Standing hip abduction 2# x15 (X) Standing hip extension 2# x15 (X) Mini squat x20 (X) Lunges fwd/lat x15 ea (X) Plantigrade fire hydrant x15 ea Plantigrade donkey kick x15 ea. Neuromuscular Re-education (05067): timed minutes 15, units 1 . ON RED MAT- *GAIT BELT* /2 kneel with R LE in front: (N) - B UE flexion to 90* x10 (N) - Alt UE flexion to 90* x10 (N) 1/2 knee with L LE in front: (N) - B UE flexion to 90* x10 (N) - Alt UE flexion to 90* x10 (N) Tall Kneel: (N) reaching with each UE for cones x8 at different heights (N) Below not done today: In // bars: Star taps to certain colors with certain foot (PT tells pt color and foot to tap- 1 and 2 sequencing) Tandem stance firm surface 2x20 ea B/L (X) Staggered stance with arm swing x15 ea (X) Grabbing different color cones from different height surfaces x2 min (PT says color to grab) Obstacle course which finding all cones (N) -Step over objects -Step on foam surface -Stairs -Side step, bkwd amb -Weave between cones. Therapeutic Activity (56937): timed minutes 15, units 1 . Transfer training on and off floor with red mat on floor. (N) GAIT BELT Getting on to floor: (with assist of plinth) - Stand -> half knee with R in front - 1/2 kneel to tall knee - tall knee to hands and knees - hands and knees to sitting Getting off floor: - Reverse the above. Provided today:. 03/21/22 HEP HO given plantigrade firehydrant and donkey kick, squat, lunges 03/05/22 HEP HO given STS. 'Scores and Scales' Signatures Electronically signed by : Yi Mcdaniel [employer]; Apr 17 2022 3:27PM EST (Author) Electronically signed by : Monik Mar PT; Apr 18 2022 2 (more content not included)... 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 STG: SOCORRO will demonstrate good carryover of HEP for ROM, strengthening and coordination in order to improve functional independence at home/work by 2 weeks. 03/28 Pt reporting good carryover of HEP, completes each 1x/day LTG: SOCORRO to improve L hand coordination by decreasing 9HPT time under 90 seconds with no drops to improve manipulation of small objects by 6 weeks. 03/28 76 seconds this date, GOAL MET upgrade to under 60 seconds LTG: SOCORRO will demonstrate improved functional independence at home by a decreased DASH score by 25 % by 6 weeks. 03/28 Decrease of 9% this date, CONTINUE LTG: SOCORRO will demonstrate all LUE muscle movements to 4-/5 or better by 6 weeks. 03/28 LUE 4+/5, GOAL MET LTG: SOCORRO will increase L warp picker strength by 15 lbs to increase I with manipulating heavier objects to complete work and home tasks in 6 weeks. 03/28 Increase of 18lbs this date, GOAL MET, increase to 35 lbs overall LTG:SOCORRO will demonstrate WFL ROM of LUE by 6 weeks to faciliate increased independence with ADLs. 03/28 WFL aside from reaching LUE to R shoulder, CONTINUE Motor Function/Control/Tone: Intervention plan include: hot pack , paraffin , ADLs, education/instruction , home program , manual therapy , therapeutic activities and therapeutic exercises. Frequency and duration: 1 time(s) a week, for 6 weeks, for 6 visits. Potential to achieve rehab goals is good. Progress with POC, as tolerated. Assessment Pt demos significant improvements with re-eval this date. Pt has met goals with warp picker strength, FMC and ROM. Pt still presenting with weakness on L side compared to R, reduced ROM, decreased FMC compared to R and decreased independence with ADLs/IADLs as indicated by quickdash. Pt educated on finger extensor tool for home use. Pt would continue to benefit from additional skilled therapy services. Extend POC to address new/updated goals. Pt demos increased finger strength this date, pt demos ability to use tip of thumb on clothes pin this date compared to side of finger. Adult Risk Screening There are no spiritual/cultural practices/values/needs that are important to know Initial Fall Risk Screening: SOCORRO has fallen in the last 6 months. She has fallen due to d/t LLE tightness. Her fall did not result in injury. SOCORRO does not have a fear of falling. She does not need assistance with sitting, standing or walking. Does not need assistance walking in her home. She needs assistance in an unfamiliar setting. The patient is not using an assistive device. Living Will. Living Will: Living will on file. Did not bring. Healthcare POA: Health care proxy on file. Did not bring. Declaration of Mental Health Treatment: No mental health treatment on file. Insurance Insurance reviewed Visit number: 5 Approved number of visits: 40 OT/PT 09/14 [facility] OT/PT hard 40 Onset Date: 2021 Subjective Patient reports:. No pain this date. Pt seen for recheck. Fall Risk: moderate Objective ROM/JointMobility: (Range of Motion in degrees) Shoulder: (Mccray: P! Denotes Pain with Movement, * Indicates Marianna Resistant Otherwise Measurements are in Supine) Flexion: L Active 0-110. ABDuction: L Active 0-75. Hand up back: WFL. Hand behind head: WFL. Scratch behind opposite shoulder: unable but much closer. Elbow: (Mccray = P! Denotes Pain with Movement) Extension: L Active -5. Flexion: L Active 20-WNL. Some catching with elbow extension. Wrist: (Mccray = P! Denotes Pain with Movement) Extension: R Active 0-60, L Active 0-60. Flexion: R Active 0-80, L Active 0-65. Supination: R Active 0-180 and L Active 0-175. No finger curling with wrist extension or supination. Hand: (Mccray: Ext/Flex Finger abbrev. IF, MF, RF, SF P! Denotes Pain with Movement + Hypertension, - Extension Deficit) Thumb: Thumb opposition to all finger. Strength: Shoulders: (Mccray: P! Denotes Pain with Movement) Shoulder strength was normal on the right side. Hands (Mccray: P! Denotes Pain with Movement) Hand Dominance: Right Net Application Architect Strength: level III 60 lbs on the right and level III 29 lbs on the left. The mccray pinch trials for the right 14 lbs and left 7 lbs. 3 Point Pinch: right 15 lbs and left 5 lbs. Additional Findings: L shoulder flexion 4+/5 L shoulder extension 4+/5 L elbow flexion 4+/5 L elbow extension 4+/5 L wrist extension 4+/5 L wrist flexion 4+/5. Coordination and Manual Dexterity: 9 Hole Peg Test: 23 seconds on right, 1 min 16 seconds seconds on the left 1 drops on L. Outcome Measures: Quick Dash score: 50.00 Treatment Time in clinic started at 1600 pm Time in clinic ended at 1645 pm Total time in clinic i (more content not included)... Normal [facility] PT Progress Noteon 2 PT Progress Note Therapy Diagnosis Assessed Contracture, unspecified ankle (718.47) (M24.573) Unspecified abnormalities of gait and mobility (781.2) (R26.9) Plan Goals: Goals set and discussed today. In 2 weeks, pt will be IND and compliant with HEP for participation throughout POC. met In 4 weeks, pt will score 11 /30 on the FGA for safety with ADLs. met In 4 weeks, pt will demo 3 /5 MMT of L ankle for gait mechanics. not met Balance: UPDATED 03/05: In 3 weeks, pt will score 25/30 or higher on FGA for household and community navigation. In 8 weeks, pt will score 15 /30 on the FGA for safety with ambulation., goal met Strength: In 8 weeks, pt will demo 3+/5 MMT of L ankle and 5/5 MMT L hip and knee for ease with stair negotiation. , goal partially met Planned interventions include: education/instruction, gait training, home program, neuromuscular re-education, self care/home management, therapeutic activities and therapeutic exercises. Frequency and duration: 1 time(s) a week, for 6 weeks, for 6 visits. Potential to achieve rehab goals is good Transfer training on/off floor in future if able- started with STS this date as she demos significant functional weakness with this. Assessment Patient confirmed name and date of this session. Ms. Grace is progressing well through their POC addressing spasms of L hemibody d/t MS. Diane has attended PT sessions since 01/04/22. She has only attended 1 PT session since last recheck therefore full recheck not performed today. Strength and balance with exercises is similar to last recheck however she is able to perform STS transfer with significantly more ease now and feet even. She does still demo functional weakness and impaired balance which are impairing her gait also. For this reason she will benefit from skilled PT services with focus on neuro re-ed and functional strength to help with floor transfers. Adult Risk Screening There are no spiritual/cultural practices/values/needs that are important to know Initial Fall Risk Screening: SOCORRO has fallen in the last 6 months. She has fallen due to toes curl under while outside. Her fall did not result in injury. SOCORRO does not have a fear of falling. She does not need assistance with sitting, standing or walking. Does not need assistance walking in her home. She does not need assistance in an unfamiliar setting. The patient is not using an assistive device. Care Plan: High Risk: Low and Moderate risk interventions plus: ensure patient is escorted at all times, do not leave unattended, inform provider of high risk status, discharge by wheelchair or escort assistance, room location, sitter, pre and post sedation/procedure standards, supervised toileting. Moderate: fall in last 6 months or fear of falling. High: multiple falls within the last 6 months. Insurance Insurance reviewed Visit number: 9 Approved number of visits: 40 Insurance: medical mutual Evaluating therapist: Monik Mar PT, DPT PT dx: G35, R26.9 Subjective Patient reports:. Pt reports her L low back hurts a little today but it is not bad. She has no new falls to report. Home program performing as directed: Yes. Precautions: Fall Risk: high Objective Ortho Defer UE measurements as pt started OT services MMT hip R- flex, abd, add 5/5 L- flex: 4 /5 > 4 /5 > 4+/5 > 4+ /5 abd: 4 /5 > 4/5 >4+ /5 > 4+/5 add: 4+ /5 > 4+ /5 > 5/5 > 5/5 MMT knee R- flex: 5 /5 ext: 5 /5 L- flex: 4 / 5 > 4 /5 > 4+/5 > 5 /5 ext: 5 /5 > 5 /5 >5 /5 > 5/5 MMT ankle R- DF: 5 /5 EV: 5/5 L- DF: 3- /5 > 1 /5 > 2-/5 > 2- /5 EV: 3-/5 > 1 /5 > 3+/5 > 2- /5 FGA: 8/30 no AD gait belt > no AD gait belt > no AD, gait belt > NT Gait: slight flexion synergy of LUE, dec step length R, dec stance time L, dec eversion and DF L Transfers: pt uses BUE support > able to perform with 0UE support, feet equal Pt tends to sit with L foot inverted She demos slight flexion synergy of LLE with exercises. Outcome Measures Functional Gait Assessment score: 01/08 > > Treatment Time in clinic started at 3:45 pm Time in clinic ended at 4:30 pm Total time in clinic is 45 minutes. Total timed code time is 41 minutes. Therapeutic exercise (86152): timed minutes 23, units 2 . See NMR Below Sci Fit /Nu Step L2 5 mins STS feet uneven x5, with feet even x5 Standing hip abduction 2# x15 (P) Standing hip extension 2# x15 (P) Mini squat x20 (P) Lunges fwd/lat x15 ea (P) Plantigrade fire hydrant x15 ea Plantigrade donkey kick x15 ea. Neuromuscular Re-education (67564): timed minutes 18, units 1 . In // bars: Star taps to certain colors with certain foot (PT tells pt color and foot to tap- 1 and 2 sequencing) Tandem stance firm surface 2x20 ea B/L (X) Staggered stance with arm swing x15 ea (X) Grabbing different color cones from different height surfaces x2 min (PT says color to grab) Obstacle course which finding all cones (N) -Step over objects -Step on foa (more content not included)... Normal [facility] Therapy Re-eval Noteon 03-28 Therapy Re-eval Note Therapy Diagnosis Assessed Contracture of muscle, left upper arm (728.85) (M62.422) Fine motor impairment (V49.89) (R29.818,R29.898) Multiple sclerosis (340) (G35) Muscle weakness of left arm (728.87) (M62.81) Plan Goals: Goals set and discussed today. STG: SOCORRO will demonstrate good carryover of HEP for ROM, strengthening and coordination in order to improve functional independence at home/work by 2 weeks. 03/28 Pt reporting good carryover of HEP, completes each 1x/day LTG: SOCORRO to improve L hand coordination by decreasing 9HPT time under 90 seconds with no drops to improve manipulation of small objects by 6 weeks. 03/28 76 seconds this date, GOAL MET upgrade to under 60 seconds LTG: SOCORRO will demonstrate improved functional independence at home by a decreased DASH score by 25 % by 6 weeks. 03/28 Decrease of 9% this , CONTINUE LTG: SOCORRO will demonstrate all LUE muscle movements to 4-/5 or better by 6 weeks. 03/28 LUE 4+/5, GOAL MET LTG: SOCORRO will increase L warp picker strength by 15 lbs to increase I with manipulating heavier objects to complete work and home tasks in 6 weeks. 03/28 Increase of 18lbs this , GOAL MET, increase to 35 lbs overall LTG:SOCORRO will demonstrate WFL ROM of LUE by 6 weeks to faciliate increased independence with ADLs. 03/28 WFL aside from reaching LUE to R shoulder, CONTINUE Motor Function/Control/Tone: Intervention plan include: hot pack , paraffin , ADLs, education/instruction , home program , manual therapy , therapeutic activities and therapeutic exercises. Frequency and duration: 1 time(s) a week, for 6 weeks, for 6 visits. Potential to achieve rehab goals is good. Progress with POC, as tolerated. Assessment Pt demos significant improvements with re-eval this date. Pt has met goals with warp picker strength, FMC and ROM. Pt still presenting with weakness on L side compared to R, reduced ROM, decreased FMC compared to R and decreased independence with ADLs/IADLs as indicated by quickdash. Pt educated on finger extensor tool for home use. Pt would continue to benefit from additional skilled therapy services. Extend POC to address new/updated goals. Pt demos increased finger strength this date, pt demos ability to use tip of thumb on clothes pin this date compared to side of finger. Adult Risk Screening There are no spiritual/cultural practices/values/needs that are important to know Initial Fall Risk Screening: SOCORRO has fallen in the last 6 months. She has fallen due to d/t LLE tightness. Her fall did not result in injury. SOCORRO does not have a fear of falling. She does not need assistance with sitting, standing or walking. Does not need assistance walking in her home. She needs assistance in an unfamiliar setting. The patient is not using an assistive device. Living Will. Living Will: Living will on file. Did not bring. Healthcare POA: Health care proxy on file. Did not bring. Declaration of Mental Health Treatment: No mental health treatment on file. Insurance Insurance reviewed Visit number: 5 Approved number of visits: 40 OT/PT 09/14 [facility] OT/PT hard 40 Onset Date: 2021 Subjective Patient reports:. No pain this date. Pt seen for recheck. Fall Risk: moderate Objective ROM/JointMobility: (Range of Motion in degrees) Shoulder: (Mccray: P! Denotes Pain with Movement, * Indicates Marian[place] Resistant Otherwise Measurements are in Supine) Flexion: L Active 0-110. ABDuction: L Active 0-75. Hand up back: WFL. Hand behind head: WFL. Scratch behind opposite shoulder: unable but much closer. Elbow: (Mccray = P! Denotes Pain with Movement) Extension: L Active -5. Flexion: L Active 20-WNL. Some catching with elbow extension. Wrist: (Mccray = P! Denotes Pain with Movement) Extension: R Active 0-60, L Active 0-60. Flexion: R Active 0-80, L Active 0-65. Supination: R Active 0-180 and L Active 0-175. No finger curling with wrist extension or supination. Hand: (Mccray: Ext/Flex Finger abbrev. IF, MF, RF, SF P! Denotes Pain with Movement + Hypertension, - Extension Deficit) Thumb: Thumb opposition to all finger. Strength: Shoulders: (Mccray: P! Denotes Pain with Movement) Shoulder strength was normal on the right side. Hands (Mccray: P! Denotes Pain with Movement) Hand Dominance: Right Net Application Architect Strength: level III 60 lbs on the right and level III 29 lbs on the left. The mccray pinch trials for the right 14 lbs and left 7 lbs. 3 Point Pinch: right 15 lbs and left 5 lbs. Additional Findings: L shoulder flexion 4+/5 L shoulder extension 4+/5 L elbow flexion 4+/5 L elbow extension 4+/5 L wrist extension 4+/5 L wrist flexion 4+/5. Coordination and Manual Dexterity: 9 Hole Peg Test: 23 seconds on right, 1 min 16 seconds seconds on the left 1 drops on L. Outcome Measures: Quick Dash score: 50.00 Treatment Time in clinic started at 1600 pm Time in clinic ended at 1645 pm Total time in clinic i (more content not included)... [facility] Therapy Re-eval Note Therapy Diagnosis Assessed 1. Contracture, unspecified ankle (718.47) (M24.573) 2. Unspecified abnormalities of gait and mobility (781.2) (R26.9) Plan Goals: Goals set and discussed today. In 2 weeks, pt will be IND and compliant with HEP for participation throughout POC. met In 4 weeks, pt will score 11 /30 on the FGA for safety with ADLs. met In 4 weeks, pt will demo 3 /5 MMT of L ankle for gait mechanics. not met Balance: UPDATED 03/05: In 3 weeks, pt will score 25/30 or higher on FGA for household and community navigation. In 8 weeks, pt will score 15 /30 on the FGA for safety with ambulation., goal met Strength: In 8 weeks, pt will demo 3+/5 MMT of L ankle and 5/5 MMT L hip and knee for ease with stair negotiation. , goal partially met Planned interventions include: education/instruction, gait training, home program, neuromuscular re-education, self care/home management, therapeutic activities and therapeutic exercises. Frequency and duration: 1 time(s) a week, for 6 weeks, for 6 visits. Potential to achieve rehab goals is good Transfer training on/off floor in future if able- started with STS this date as she demos significant functional weakness with this. Assessment Patient confirmed name and date of this session. Ms. Grace is progressing well through their POC addressing spasms of L hemibody d/t MS. Diane has attended PT sessions since 01/04/22. She has only attended 1 PT session since last recheck therefore full recheck not performed today. Strength and balance with exercises is similar to last recheck however she is able to perform STS transfer with significantly more ease now and feet even. She does still demo functional weakness and impaired balance which are impairing her gait also. For this reason she will benefit from skilled PT services with focus on neuro re-ed and functional strength to help with floor transfers. Adult Risk Screening There are no spiritual/cultural practices/values/needs that are important to know Initial Fall Risk Screening: SOCORRO has fallen in the last 6 months. She has fallen due to toes curl under while outside. Her fall did not result in injury. SOCORRO does not have a fear of falling. She does not need assistance with sitting, standing or walking. Does not need assistance walking in her home. She does not need assistance in an unfamiliar setting. The patient is not using an assistive device. Care Plan: High Risk: Low and Moderate risk interventions plus: ensure patient is escorted at all times, do not leave unattended, inform provider of high risk status, discharge by wheelchair or escort assistance, room location, sitter, pre and post sedation/procedure standards, supervised toileting. Moderate: fall in last 6 months or fear of falling. High: multiple falls within the last 6 months. Insurance Insurance reviewed Visit number: 9 Approved number of visits: 40 Insurance: medical mutual Evaluating therapist: Monik Mar PT, DPT PT dx: G35, R26.9 Subjective Patient reports:. Pt reports her L low back hurts a little today but it is not bad. She has no new falls to report. Home program performing as directed: Yes. Precautions: Fall Risk: high Objective Ortho Defer UE measurements as pt started OT services MMT hip R- flex, abd, add 5/5 L- flex: 4 /5 > 4 /5 > 4+/5 > 4+ /5 abd: 4 /5 > 4/5 >4+ /5 > 4+/5 add: 4+ /5 > 4+ /5 > 5/5 > 5/5 MMT knee R- flex: 5 /5 ext: 5 /5 L- flex: 4 / 5 > 4 /5 > 4+/5 > 5 /5 ext: 5 /5 > 5 /5 >5 /5 > 5/5 MMT ankle R- DF: 5 /5 EV: 5/5 L- DF: 3- /5 > 1 /5 > 2-/5 > 2- /5 EV: 3-/5 > 1 /5 > 3+/5 > 2- /5 FGA: 01/08 no AD gait belt > no AD gait belt > no AD, gait belt > NT Gait: slight flexion synergy of LUE, dec step length R, dec stance time L, dec eversion and DF L Transfers: pt uses BUE support > able to perform with 0UE support, feet equal Pt tends to sit with L foot inverted She demos slight flexion synergy of LLE with exercises. Outcome Measures Functional Gait Assessment score: 830 > 1630 > 30 Treatment Time in clinic started at 3:45 pm Time in clinic ended at 4:30 pm Total time in clinic is 45 minutes. Total timed code time is 41 minutes. Therapeutic exercise (73379): timed minutes 23, units 2 . See NMR Below Sci Fit /Nu Step L2 5 mins STS feet uneven x5, with feet even x5 Standing hip abduction 2# x15 (P) Standing hip extension 2# x15 (P) Mini squat x20 (P) Lunges fwd/lat x15 ea (P) Plantigrade fire hydrant x15 ea Plantigrade donkey kick x15 ea. Neuromuscular Re-education (69244): timed minutes 18, units 1 . In // bars: Star taps to certain colors with certain foot (PT tells pt color and foot to tap- 1 and 2 sequencing) Tandem stance firm surface 2x20 ea B/L (X) Staggered stance with arm swing x15 ea (X) Grabbing different color cones from different height surfaces x2 min (PT says color to grab) Obstacle course which finding all cones (N) -Step over objects -Step (more content not included)... 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 STG: SOCORRO will demonstrate good carryover of HEP for ROM, strengthening and coordination in order to improve functional independence at home/work by 2 weeks. LTG: SOCORRO to improve L hand coordination by decreasing 9HPT time under 90 seconds with no drops to improve manipulation of small objects by 6 weeks. LTG: SOCORRO will demonstrate improved functional independence at home by a decreased DASH score by 25 % by 6 weeks. LTG: SOCORRO will demonstrate all LUE muscle movements to 4-/5 or better by 6 weeks. LTG: SOCORRO will increase L warp picker strength by 15 lbs to increase I with manipulating heavier objects to complete work and home tasks in 6 weeks. LTG:SOCORRO will demonstrate WFL ROM of LUE by 6 weeks to faciliate increased independence with ADLs. Motor Function/Control/Tone: Assessment Pt requires frequent stretching out of fingers during peg activity. Pt demos good finger to thumb opposition. Pt requires increased a. Adult Risk Screening There are no spiritual/cultural practices/values/needs that are important to know Initial Fall Risk Screening: SOCORRO has fallen in the last 6 months. She has fallen due to d/t LLE tightness. Her fall did not result in injury. SOCORRO does not have a fear of falling. She does not need assistance with sitting, standing or walking. Does not need assistance walking in her home. She needs assistance in an unfamiliar setting. The patient is not using an assistive device. Living Will. Living Will: Living will on file. Did not bring. Healthcare POA: Health care proxy on file. Did not bring. Declaration of Mental Health Treatment: No mental health treatment on file. Insurance Insurance reviewed Visit number: 4 Approved number of visits: 40 OT/PT 08/15 [facility] OT/PT hard 40 Onset Date: 2021 Subjective Patient reports:. Pt reporting no pain this date. Pt reporting she tried the toothpick activity at home and it was challenging but good.. Fall Risk: moderate Objective ROM/JointMobility: (Range of Motion in degrees) Shoulder: (Mccray: P! Denotes Pain with Movement, * Indicates Marianna Resistant Otherwise Measurements are in Supine) Flexion: L Active 0-60. ABDuction: L Active 0-70. Hand up back: WFL. Hand behind head: unable. Scratch behind opposite shoulder: unable. Elbow: (Mccray = P! Denotes Pain with Movement) Extension: L Active -20. Flexion: L Active . Some catching with elbow extension. Wrist: (Mccray = P! Denotes Pain with Movement) Extension: R Active 0-60, L Active 0-60. Flexion: R Active 0-80, L Active 0-50. Supination: R Active 0-180 and L Active 0-160. L fingers curl with extension L fingers curl with supination. Hand: (Mccray: Ext/Flex Finger abbrev. IF, MF, RF, SF P! Denotes Pain with Movement + Hypertension, - Extension Deficit) Thumb: Thumb opposition to all finger. Strength: Shoulders: (Mccray: P! Denotes Pain with Movement) Shoulder strength was normal on the right side. Hands (Mccray: P! Denotes Pain with Movement) Hand Dominance: Right Net Application Architect Strength: level III 45 lbs on the right and level III 11 lbs on the left. The mccray pinch trials for the right 10 lbs and left 3 lbs. 3 Point Pinch: right 12 lbs and left 3 lbs. Additional Findings: L shoulder flexion 3/5 L shoulder extension 3-/5 L elbow flexion 3/5 L elbow extension 3/5 L wrist extension 4-/5 L wrist flexion 3/5. Coordination and Manual Dexterity: 9 Hole Peg Test: 23 seconds on right, 2 min 16 seconds seconds on the left 2 drops on L. Outcome Measures: Quick Dash score: 59.09 Treatment Time in clinic started at 1600 pm Time in clinic ended at 1645 pm Total time in clinic is 45 minutes. Total timed code time is 43 minutes. Modalities: untimed minutes . Therapeutic Activity (77534): timed minutes 43 . [id number] Review of rubberband HEP Peg removal from yellow putty and placing into peg board x10 Push/Pull 11lb ball for extended fingers and wrist flex/ext Finger to thumb opposition alternating fingers to picker feeder poker chips ROM arc with 1.5lb wrist weight to bring rings over ROM arc with middle addition x1 round trip. 'Scores and Scales' Signatures Electronically signed by : JAIME Gutierrez; Mar 21 2022 4:52PM EST (Author) [facility] PT Progress Noteon 2 PT Progress Note Therapy Diagnosis Assessed Contracture, unspecified ankle (718.47) (M24.573) Unspecified abnormalities of gait and mobility (781.2) (R26.9) Plan Goals: Goals set and discussed today. In 2 weeks, pt will be IND and compliant with HEP for participation throughout POC. met In 4 weeks, pt will score 11 /30 on the FGA for safety with ADLs. met In 4 weeks, pt will demo 3 /5 MMT of L ankle for gait mechanics. not met Balance: UPDATED 03/05: In 3 weeks, pt will score 25/30 or higher on FGA for household and community navigation. In 8 weeks, pt will score 15 /30 on the FGA for safety with ambulation., goal met Strength: In 8 weeks, pt will demo 3+/5 MMT of L ankle and 5/5 MMT L hip and knee for ease with stair negotiation. , goal partially met Planned interventions include: education/instruction, gait training, home program, neuromuscular re-education, self care/home management, therapeutic activities and therapeutic exercises. Frequency and duration: 1 time(s) a week, for 3 weeks, for 3 visits. Potential to achieve rehab goals is good Add ankle weights to hip ext and abd. Add obstacle course at next visit. MP Transfer training on/off floor in future if able- started with STS this date as she demos significant functional weakness with this. Assessment Patient confirmed name and date of this session. Pt with good tolerance to session with no significant LOB however she does need to grab // bars multiple times. STS completed with R foot 1 inch anterior to L for first set of ten however second set able to complete with both feet equal. Pt still demos inversion of L foot with hip flexion. Adult Risk Screening There are no spiritual/cultural practices/values/needs that are important to know Initial Fall Risk Screening: SOCORRO has fallen in the last 6 months. She has fallen due to toes curl under while outside. Her fall did not result in injury. SOCORRO does not have a fear of falling. She does not need assistance with sitting, standing or walking. Does not need assistance walking in her home. She does not need assistance in an unfamiliar setting. The patient is not using an assistive device. Care Plan: High Risk: Low and Moderate risk interventions plus: ensure patient is escorted at all times, do not leave unattended, inform provider of high risk status, discharge by wheelchair or escort assistance, room location, sitter, pre and post sedation/procedure standards, supervised toileting. Moderate: fall in last 6 months or fear of falling. High: multiple falls within the last 6 months. Insurance Insurance reviewed Visit number: 8 Approved number of visits: 40 Insurance: medical mutual Evaluating therapist: Monik Mar PT, DPT PT dx: G35, R26.9 Subjective Patient reports:. Pt reports she had recent fall. She was outside and bent down to wipe off pants then fell backwards- no injuries. Fall risk updated today. Pt arrives 5 min late for session. Home program performing as directed: Yes. Precautions: Fall Risk: high Treatment Time in clinic started at 3:20 pm Time in clinic ended at 4:00 pm Total time in clinic is 40 minutes. Total timed code time is 38 minutes. Therapeutic exercise (59131): timed minutes 26, units 2 . See NMR Below Sci Fit /Nu Step L2 5 mins STS feet uneven x10, with feet even x10 Standing hip abduction x15 (I- ankle weight) Standing hip extension x15 (I- ankle weight) Mini squat x15 Lunges fwd/lat x10 ea (N) Plantigrade fire hydrant x15 ea (N) Plantigrade donkey kick x15 ea (N). Neuromuscular Re-education (86557): timed minutes 12, units 1 . In // bars: Cone taps to certain colors x1 color, x2 color x1 min ea LE Tandem stance firm surface 2x20 ea B/L Staggered stance with arm swing x15 ea Grabbing different color cones from different height surfaces x2 min (N) Obstacle course which finding all cones (A) -Step over objects -Step on foam surface -Reach low, high. Provided today: a personalized home program (Scanned) and education Education Provided: plan of care and home exercise program. Information communicated to patient. 03/21/22 HEP HO given plantigrade firehydrant and donkey kick, squat, lunges 03/05/22 HEP HO given STS. 'Scores and Scales' Signatures Electronically signed by : Monik Mar PT; Mar 21 2022 4:08PM EST (Author) [facility] Therapy Communicationon 10-3 Therapy Communication Message SOCORRO GRACE canceled today 03/11/22. Pt cancelled per front of house manager. Signatures Electronically signed by : Monik Mar PT; Mar 11 2022 10:48AM EST (Author) [facility] Therapy Communication Message SOCORRO GRACE canceled today 03/11/22. Secandary to illness. Signatures Electronically signed by : RISHI Hart/Lesley; Mar 11 2022 9:57AM EST (Author) [facility] OT Progress Noteon 2 OT Progress Note Therapy Diagnosis Assessed Multiple sclerosis (340) (G35) Fine motor impairment (V49.89) (R29.818,R29.898) Muscle weakness of left arm (728.87) (M62.81) Contracture of muscle, left upper arm (728.85) (M62.422) Plan Goals: Goals set and discussed today. STG: SOCORRO will demonstrate good carryover of HEP for ROM, strengthening and coordination in order to improve functional independence at home/work by 2 weeks. LTG: SOCORRO to improve L hand coordination by decreasing 9HPT time under 90 seconds with no drops to improve manipulation of small objects by 6 weeks. LTG: SOCORRO will demonstrate improved functional independence at home by a decreased DASH score by 25 % by 6 weeks. LTG: SOCORRO will demonstrate all LUE muscle movements to 4-/5 or better by 6 weeks. LTG: SOCORRO will increase L warp picker strength by 15 lbs to increase I with manipulating heavier objects to complete work and home tasks in 6 weeks. LTG:SOCORRO will demonstrate WFL ROM of LUE by 6 weeks to faciliate increased independence with ADLs. Motor Function/Control/Tone: Assessment Pt demos need for increased time with twisting bolts activity, pt index finger demos increased tone and does not assist in task while thumb and D3/D4 manipulate the bolts. Pt using R hand for extending digits on L. Pt demos good understanding of rubber band HEP and fine motor HEP. Pt demos some drops of only circular pony beads with stringing task. Pt demos ability to complete full reps with power web with DIP flexed. Adult Risk Screening There are no spiritual/cultural practices/values/needs that are important to know Initial Fall Risk Screening: SOCORRO has fallen in the last 6 months. She has fallen due to d/t LLE tightness. Her fall did not result in injury. SOCORRO does not have a fear of falling. She does not need assistance with sitting, standing or walking. Does not need assistance walking in her home. She needs assistance in an unfamiliar setting. The patient is not using an assistive device. Living Will. Living Will: Living will on file. Did not bring. Healthcare POA: Health care proxy on file. Did not bring. Declaration of Mental Health Treatment: No mental health treatment on file. Insurance Insurance reviewed Visit number: 3 Approved number of visits: 40 OT/PT 07/15 [facility] OT/PT hard 40 Onset Date: 2021 Subjective Patient reports:. Pt reporting no pain this date. Pt reporting she was significant sore from last session and layed off her exercises. Pt denies any lingering soreness. Fall Risk: moderate Objective ROM/JointMobility: (Range of Motion in degrees) Shoulder: (Mccray: P! Denotes Pain with Movement, * Indicates Marianna Resistant Otherwise Measurements are in Supine) Flexion: L Active 0-60. ABDuction: L Active 0-70. Hand up back: WFL. Hand behind head: unable. Scratch behind opposite shoulder: unable. Elbow: (Mccray = P! Denotes Pain with Movement) Extension: L Active -20. Flexion: L Active . Some catching with elbow extension. Wrist: (Mccray = P! Denotes Pain with Movement) Extension: R Active 0-60, L Active 0-60. Flexion: R Active 0-80, L Active 0-50. Supination: R Active 0-180 and L Active 0-160. L fingers curl with extension L fingers curl with supination. Hand: (Mccray: Ext/Flex Finger abbrev. IF, MF, RF, SF P! Denotes Pain with Movement + Hypertension, - Extension Deficit) Thumb: Thumb opposition to all finger. Strength: Shoulders: (Mccray: P! Denotes Pain with Movement) Shoulder strength was normal on the right side. Hands (Mccray: P! Denotes Pain with Movement) Hand Dominance: Right Net Application Architect Strength: level III 45 lbs on the right and level III 11 lbs on the left. The mccray pinch trials for the right 10 lbs and left 3 lbs. 3 Point Pinch: right 12 lbs and left 3 lbs. Additional Findings: L shoulder flexion 3/5 L shoulder extension 3-/5 L elbow flexion 3/5 L elbow extension 3/5 L wrist extension 4-/5 L wrist flexion 3/5. Coordination and Manual Dexterity: 9 Hole Peg Test: 23 seconds on right, 2 min 16 seconds seconds on the left 2 drops on L. Outcome Measures: Quick Dash score: 59.09 Treatment Time in clinic started at 1615 pm Time in clinic ended at 1700 pm Total time in clinic is 45 minutes. Total timed code time is 43 minutes. Modalities: untimed minutes . Therapeutic Activity (57663): timed minutes 43 . [id number] -twisting bolts onto board with L hand for FMC -beading pony beads onto string with L Hand -Rubber band HEP -Fine motor HEP yellow power web for composite finger flexion with 5 second holds x10 yellow power web for finger extensio x5 second holds x10. 'Scores and Scales' Signatures Electronically signed by : JAIME Gutierrez; Mar 05 2022 5:54PM EST (Author) [facility] PT Progress Noteon 2 PT Progress Note Therapy Diagnosis Assessed Contracture, unspecified ankle (718.47) (M24.573) Unspecified abnormalities of gait and mobility (781.2) (R26.9) Plan Goals: Goals set and discussed today. In 2 weeks, pt will be IND and compliant with HEP for participation throughout POC. met In 4 weeks, pt will score 11 /30 on the FGA for safety with ADLs. met In 4 weeks, pt will demo 3 /5 MMT of L ankle for gait mechanics. not met Balance: UPDATED 03/05: In 3 weeks, pt will score 25/30 or higher on FGA for household and community navigation. In 8 weeks, pt will score 15 /30 on the FGA for safety with ambulation., goal met Strength: In 8 weeks, pt will demo 3+/5 MMT of L ankle and 5/5 MMT L hip and knee for ease with stair negotiation. , goal partially met Planned interventions include: education/instruction, gait training, home program, neuromuscular re-education, self care/home management, therapeutic activities and therapeutic exercises. Frequency and duration: 1 time(s) a week, for 3 weeks, for 3 visits. Potential to achieve rehab goals is good Focus on neuro re-ed and functional strength. Transfer training on/off floor in future if able- started with STS this date as she demos significant functional weakness with this. Assessment Patient confirmed name and date of this session. Ms. Grace is progressing well through their POC addressing spasms of L hemibody d/t MS. Diane has attended PT sessions since 01/04/22. The pt demonstrates and verbalizes improvements in LE strength, balance, and safety with gait. She does still demo slight weakness of BLE and imbalance which is causing decreased safety with walking and ADLs. The pt will benefit from continued skilled PT services to address the above stated impairments and functional limitations to maximize participation and ease in household, social, and work related activities. Plan to focus mainly on neuro re-ed with some functional ther ex and gait training. Pt verbalized understanding and agreement to goals and POC. Thank you for this referral and please call [phone] with any questions or concerns. She will be continuing with OT. During STS pt demos R foot behind L therefore cues to put feet even which she demos greater difficulty with. Pt educated that when the L foot is even with R or further back it is causing it to work more. Adult Risk Screening There are no spiritual/cultural practices/values/needs that are important to know Initial Fall Risk Screening: SOCORRO has fallen in the last 6 months. She has fallen due to toes curl under while outside. Her fall did not result in injury. SOCORRO does not have a fear of falling. She does not need assistance with sitting, standing or walking. Does not need assistance walking in her home. She does not need assistance in an unfamiliar setting. The patient is not using an assistive device. Care Plan: Moderate Risk: Low risk interventions plus: do not leave patient on exam table unattended, supervised activity, educate patient/family on falls prevention, review safety initiatives with patient/family, family at bedside as allowed, yellow falls risk band, focus rounding attention, locate patient in area of high visibility, wheelchair, bed, or personal alarm, bedside commode, elevated toilet seat and pharmacy consult for medication concerns. Moderate: fall in last 6 months or fear of falling. Insurance Insurance reviewed Visit number: 7 Approved number of visits: 40 11/15 POC Insurance: medical mutual Evaluating therapist: Monik Mar PT, LANIET PT dx: G35, R26.9 Subjective Patient reports:. Pt reports ambulation, balance, and LE strength has improved. She states she is not quite where she wants to be however she is happy with her progress. She started OT to focus on hand. She would like to be able to complete floor transfer with more ease and safer. She also reports she still has issues when in the shower d/t becoming overwhelmed with amount of stuff, lifting LEs into tub, and turning head. Home program performing as directed: Yes. Precautions: Fall Risk: moderate Objective Ortho Defer UE measurements as pt started OT services MMT hip R- flex, abd, add 5/5 L- flex: 4 /5 > 4 /5 > 4+/5 abd: 4 /5 > 4/5 >4+ /5 add: 4+ /5 > 4+ /5 > 5/5 MMT knee R- flex: 5 /5 ext: 5 /5 L- flex: 4 / 5 > 4 /5 > 4+/5 ext: 5 /5 > 5 /5 >5 /5 MMT ankle R- DF: 5 /5 EV: 5/5 L- DF: 3- /5 > 1 /5 > 2-/5 EV: 3-/5 > 1 /5 > 3+/5 FGA: 01/08 no AD gait belt > no AD gait belt > no AD, gait belt Gait: slight flexion synergy of LUE, dec step length R, dec stance time L, dec eversion and DF L Transfers: pt uses BUE support Pt tends to sit with L foot inverted She demos slight flexion synergy of LLE with exercises. Outcome Measures Functional Gait Assessment score: 01/08 > > Treatment Time in clinic started at 4:22 pm Time in clinic ended at 4:58 pm Total time in clinic is 36 minutes. Total timed code time is 30 minutes. (more content not included)... [facility] Therapy Re-eval Noteon 03-05 Therapy Re-eval Note Therapy Diagnosis Assessed 1. Contracture, unspecified ankle (718.47) (M24.573) 2. Unspecified abnormalities of gait and mobility (781.2) (R26.9) Plan Goals: Goals set and discussed today. In 2 weeks, pt will be IND and compliant with HEP for participation throughout POC. met In 4 weeks, pt will score 11 /30 on the FGA for safety with ADLs. met In 4 weeks, pt will demo 3 /5 MMT of L ankle for gait mechanics. not met Balance: UPDATED 03/05: In 3 weeks, pt will score 25/30 or higher on FGA for household and community navigation. In 8 weeks, pt will score 15 /30 on the FGA for safety with ambulation., goal met Strength: In 8 weeks, pt will demo 3+/5 MMT of L ankle and 5/5 MMT L hip and knee for ease with stair negotiation. , goal partially met Planned interventions include: education/instruction, gait training, home program, neuromuscular re-education, self care/home management, therapeutic activities and therapeutic exercises. Frequency and duration: 1 time(s) a week, for 3 weeks, for 3 visits. Potential to achieve rehab goals is good Focus on neuro re-ed and functional strength. Transfer training on/off floor in future if able- started with STS this date as she demos significant functional weakness with this. Assessment Patient confirmed name and date of this session. Ms. Grace is progressing well through their POC addressing spasms of L hemibody d/t MS. Diane has attended PT sessions since 01/04/22. The pt demonstrates and verbalizes improvements in LE strength, balance, and safety with gait. She does still demo slight weakness of BLE and imbalance which is causing decreased safety with walking and ADLs. The pt will benefit from continued skilled PT services to address the above stated impairments and functional limitations to maximize participation and ease in household, social, and work related activities. Plan to focus mainly on neuro re-ed with some functional ther ex and gait training. Pt verbalized understanding and agreement to goals and POC. Thank you for this referral and please call [phone] with any questions or concerns. She will be continuing with OT. During STS pt demos R foot behind L therefore cues to put feet even which she demos greater difficulty with. Pt educated that when the L foot is even with R or further back it is causing it to work more. Adult Risk Screening There are no spiritual/cultural practices/values/needs that are important to know Initial Fall Risk Screening: SOCORRO has fallen in the last 6 months. She has fallen due to toes curl under while outside. Her fall did not result in injury. SOCORRO does not have a fear of falling. She does not need assistance with sitting, standing or walking. Does not need assistance walking in her home. She does not need assistance in an unfamiliar setting. The patient is not using an assistive device. Care Plan: Moderate Risk: Low risk interventions plus: do not leave patient on exam table unattended, supervised activity, educate patient/family on falls prevention, review safety initiatives with patient/family, family at bedside as allowed, yellow falls risk band, focus rounding attention, locate patient in area of high visibility, wheelchair, bed, or personal alarm, bedside commode, elevated toilet seat and pharmacy consult for medication concerns. Moderate: fall in last 6 months or fear of falling. Insurance Insurance reviewed Visit number: 7 Approved number of visits: 40 11/15 POC Insurance: medical mutual Evaluating therapist: Monik Mar PT, DPT PT dx: G35, R26.9 Subjective Patient reports:. Pt reports ambulation, balance, and LE strength has improved. She states she is not quite where she wants to be however she is happy with her progress. She started OT to focus on hand. She would like to be able to complete floor transfer with more ease and safer. She also reports she still has issues when in the shower d/t becoming overwhelmed with amount of stuff, lifting LEs into tub, and turning head. Home program performing as directed: Yes. Precautions: Fall Risk: moderate Objective Ortho Defer UE measurements as pt started OT services MMT hip R- flex, abd, add 5/5 L- flex: 4 /5 > 4 /5 > 4+/5 abd: 4 /5 > 4/5 >4+ /5 add: 4+ /5 > 4+ /5 > 5/5 MMT knee R- flex: 5 /5 ext: 5 /5 L- flex: 4 / 5 > 4 /5 > 4+/5 ext: 5 /5 > 5 /5 >5 /5 MMT ankle R- DF: 5 /5 EV: 5/5 L- DF: 3- /5 > 1 /5 > 2-/5 EV: 3-/5 > 1 /5 > 3+/5 FGA: 01/08 no AD gait belt > no AD gait belt > 30 no AD, gait belt Gait: slight flexion synergy of LUE, dec step length R, dec stance time L, dec eversion and DF L Transfers: pt uses BUE support Pt tends to sit with L foot inverted She demos slight flexion synergy of LLE with exercises. Outcome Measures Functional Gait Assessment score: 01/08 > 30 > /30 Treatment Time in clinic started at 4:22 pm Time in clinic ended at 4:58 pm Total time in clinic is 36 minutes. Total timed code time is 30 surya (more content not included)... Normal [facility] OT Progress Noteon 2 OT Progress Note Therapy Diagnosis Assessed Muscle weakness of left arm (728.87) (M62.81) Fine motor impairment (V49.89) (R29.818,R29.898) Contracture of muscle, left upper arm (728.85) (M62.422) Multiple sclerosis (340) (G35) Plan Goals: Goals set and discussed today. STG: SOCORRO will demonstrate good carryover of HEP for ROM, strengthening and coordination in order to improve functional independence at home/work by 2 weeks. LTG: SOCORRO to improve L hand coordination by decreasing 9HPT time under 90 seconds with no drops to improve manipulation of small objects by 6 weeks. LTG: SOCORRO will demonstrate improved functional independence at home by a decreased DASH score by 25 % by 6 weeks. LTG: SOCORRO will demonstrate all LUE muscle movements to 4-/5 or better by 6 weeks. LTG: SOCORRO will increase L warp picker strength by 15 lbs to increase I with manipulating heavier objects to complete work and home tasks in 6 weeks. LTG:SOCORRO will demonstrate WFL ROM of LUE by 6 weeks to faciliate increased independence with ADLs. Motor Function/Control/Tone: Assessment Pt unable to provide enough force to open the tennis ball mouth after first trial, ended task early. Pt demos ability to extend fingers in yellow putty and pick out pegs, pt does demo weakness in DIP and PIP joints of digits with some increased flexion with task. Pt demos difficulty with HEP with pink putty this date. Educated on continuing to do them, even if they are extremely difficult. Adult Risk Screening There are no spiritual/cultural practices/values/needs that are important to know Initial Fall Risk Screening: SOCORRO has fallen in the last 6 months. She has fallen due to d/t LLE tightness. Her fall did not result in injury. SOCORRO does not have a fear of falling. She does not need assistance with sitting, standing or walking. Does not need assistance walking in her home. She needs assistance in an unfamiliar setting. The patient is not using an assistive device. Living Will. Living Will: Living will on file. Did not bring. Healthcare POA: Health care proxy on file. Did not bring. Declaration of Mental Health Treatment: No mental health treatment on file. Insurance Insurance reviewed Visit number: 2 Approved number of visits: 40 OT/PT 05/17 [facility] OT/PT hard 40 Onset Date: 2021 Subjective Fall Risk: moderate Objective ROM/JointMobility: (Range of Motion in degrees) Shoulder: (Mccray: P! Denotes Pain with Movement, * Indicates [place] Resistant Otherwise Measurements are in Supine) Flexion: L Active 0-60. ABDuction: L Active 0-70. Hand up back: WFL. Hand behind head: unable. Scratch behind opposite shoulder: unable. Elbow: (Mccray = P! Denotes Pain with Movement) Extension: L Active -20. Flexion: L Active . Some catching with elbow extension. Wrist: (Mccray = P! Denotes Pain with Movement) Extension: R Active 0-60, L Active 0-60. Flexion: R Active 0-80, L Active 0-50. Supination: R Active 0-180 and L Active 0-160. L fingers curl with extension L fingers curl with supination. Hand: (Mccray: Ext/Flex Finger abbrev. IF, MF, RF, SF P! Denotes Pain with Movement + Hypertension, - Extension Deficit) Thumb: Thumb opposition to all finger. Strength: Shoulders: (Mccray: P! Denotes Pain with Movement) Shoulder strength was normal on the right side. Hands (Mccray: P! Denotes Pain with Movement) Hand Dominance: Right Net Application Architect Strength: level III 45 lbs on the right and level III 11 lbs on the left. The mccray pinch trials for the right 10 lbs and left 3 lbs. 3 Point Pinch: right 12 lbs and left 3 lbs. Additional Findings: L shoulder flexion 3/5 L shoulder extension 3-/5 L elbow flexion 3/5 L elbow extension 3/5 L wrist extension 4-/5 L wrist flexion 3/5. Coordination and Manual Dexterity: 9 Hole Peg Test: 23 seconds on right, 2 min 16 seconds seconds on the left 2 drops on L. Outcome Measures: Quick Dash score: 59.09 Treatment Time in clinic started at 1615 Time in clinic ended at 1700 Total time in clinic is 45 minutes. Total timed code time is 43 minutes. Modalities: untimed minutes 5 . [id number] x6 dips of paraffin donned for PROM of L hand with pt interview. Therapeutic Activity (99579): timed minutes 43 . [id number] x6 dips of paraffin donned for PROM of L hand with pt interview Finger extension spread in yellow putty to free pegs, pincer grasp to removed pegs from yellow putty HEP with pink putty for finger strengthening, demo and teach back. 'Scores and Scales' Signatures Electronically signed by : Maranda Genao OTR/Lesley; Feb 27 2022 5:12PM EST (Author) [facility] PT Progress Noteon 2 PT Progress Note Therapy Diagnosis Assessed Contracture, unspecified ankle (718.47) (M24.573) Unspecified abnormalities of gait and mobility (781.2) (R26.9) Plan Goals: Goals set and discussed today. In 2 weeks, pt will be IND and compliant with HEP for participation throughout POC. met In 4 weeks, pt will score 11 /30 on the FGA for safety with ADLs. met In 4 weeks, pt will demo 3 /5 MMT of L ankle for gait mechanics. not met Balance: In 8 weeks, pt will score 15 /30 on the FGA for safety with ambulation., goal met Strength: In 8 weeks, pt will demo 3+/5 MMT of L ankle and 5/5 MMT L hip and knee for ease with stair negotiation. not met Planned interventions include: education/instruction, gait training, home program, neuromuscular re-education, self care/home management, therapeutic activities and therapeutic exercises. Frequency and duration: 1 time(s) a week, for 4 weeks, for 4 visits. Potential to achieve rehab goals is good Progress with [facility] proximal hip/core stabilization/strengthenin g as well as progression of proprioception activities to decrease fall risk; Transfer training on/off floor in future if able. Progress with POC, as tolerated. Assessment Patient identified by name and Spent much time discussed progressions to HEP and updates to HEP with HO for balance exercises given as well as green theraband. Pt required cues for form with ther-ex but able to maintain once cued. Pt with good attention to speed and control with ther-ex this date. Trialed self-release technique with massage roller in clinic this date via pt request. Pt making good progress towards all goals. Adult Risk Screening There are no spiritual/cultural practices/values/needs that are important to know Initial Fall Risk Screening: SOCORRO has fallen in the last 6 months. She has fallen due to toes curl under while outside. Her fall did not result in injury. SOCORRO does not have a fear of falling. She does not need assistance with sitting, standing or walking. Does not need assistance walking in her home. She does not need assistance in an unfamiliar setting. The patient is not using an assistive device. Care Plan: Moderate Risk: Low risk interventions plus: do not leave patient on exam table unattended, supervised activity, educate patient/family on falls prevention, review safety initiatives with patient/family, family at bedside as allowed, yellow falls risk band, focus rounding attention, locate patient in area of high visibility, wheelchair, bed, or personal alarm, bedside commode, elevated toilet seat and pharmacy consult for medication concerns. Moderate: fall in last 6 months or fear of falling. Pain Scale: On a scale of 0 to 10, the patient rates the pain at 0. Insurance Insurance reviewed Visit number: 6 Approved number of visits: 40 10/16 POC Insurance: medical mutual Evaluating therapist: Monik Mar PT, LANIET PT dx: G35, R26.9 Subjective Patient reports:. Pt denies any pain or falls since last session. Compliance with HEP and feels we are targeting her goals. WIll have a new granddaughter next year so would like to be able to walk without falling and work on getting on/off the floor too. Home program performing as directed: Yes. Precautions: Fall Risk: moderate Treatment Time in clinic started at 0500 pm Time in clinic ended at 541 pm Total time in clinic is 41 minutes. Total timed code time is 39 minutes. Therapeutic exercise (87130): timed minutes 30, units 2 . See NMR Below Sci Fit /Nu Step L2 5 mins (P lv) Checked pelvic symmetry: asymmetrical-performed self MET Bridges: (TrA, Hip ADD ISO playball, Glute Squeeze AND lift) 2x10 (P) Hooklying alt Hip ABD orange band 2x10 (N) Hooklying alt july with TrA 2x10 orange band (P) Pt edu on HEP updates AND given green band x 5? No Time: Standing hip abduction x15 (P, reps) Standing hip extension x15 (P, reps) Mini squat x10 D/C to HEP: Hook Lying hip add ISO with TrA x15 3 hold SLR with TrA 15x each (P, reps) Seated hip abd orange TB x10. Basic Kegel 10x HEP 2 step elevator 10x for HEP . Neuromuscular Re-education (61781): timed minutes 9, units 1 . In // bars: SLS w/ 3 cone taps alt BLE x4 each (N) Tandem stance firm surface 2x15 ea B/L (N) . 'Scores and Scales' Signatures Electronically signed by : Charity Chapman, PT; Feb 27 2022 5:56PM EST (Author) Normal [facility] OT Initial Evalutationon OT Initial Evalutation Therapy Diagnosis Assessed Multiple sclerosis (340) (G35) Contracture of muscle, left upper arm (728.85) (M62.422) Fine motor impairment (V49.89) (R29.818,R29.898) Muscle weakness of left arm (728.87) (M62.81) Plan of Care Goals: Goals set and discussed today. STG: SOCORRO will demonstrate good carryover of HEP for ROM, strengthening and coordination in order to improve functional independence at home/work by 2 weeks. LTG: SOCORRO to improve L hand coordination by decreasing 9HPT time under 90 seconds with no drops to improve manipulation of small objects by 6 weeks. LTG: SOCORRO will demonstrate improved functional independence at home by a decreased DASH score by 25 % by 6 weeks. LTG: SOCORRO will demonstrate all LUE muscle movements to 4-/5 or better by 6 weeks. LTG: SOCORRO will increase L warp picker strength by 15 lbs to increase I with manipulating heavier objects to complete work and home tasks in 6 weeks. LTG:SOCORRO will demonstrate WFL ROM of LUE by 6 weeks to faciliate increased independence with ADLs. Motor Function/Control/Tone: Intervention plan include: fluidotherapy , hot pack , paraffin , ultrasound , ADLs, education/instruction , home program , manual therapy , neuromuscular re-education , therapeutic activities and therapeutic exercises. Frequency and duration: 1 time(s) a week, for 6 weeks, for 6 visits. Potential to achieve rehab goals is good. Plan of care was developed with input and agreement by the patient. Assessment SOCORRO GRACE was evaluated today for signs and symptoms of multiple sclerosis resulting in contracture of LUE. SOCORRO presents with deficits in ROM, FMC, strength, ADLs/IADLs as indicated by quickdash. SOCORRO would benefit from regular outpatient 2x per week but pt reports difficulty getting to appointments more than 1 time per week. Pt demonstrates need for skilled OT services in order to improve AROM/PROM, strengthening, coordination and activity tolerance to improve functional independence in ADLs/IADLs/work tasks. SOCORRO GRACE presents with fair prognosis considering supportive factors such as family, age and PLOF with consideration of progressive nature of disease. SOCORRO GRACE presents with good understanding and teach back of today's education and provides input into goals/POC. Interdisciplinary Team Communication: occupational therapy and physical therapy . Clinical Presentation: evolving with changing characteristics Level of Complexity: low Problems To Be Addressed: decreased ADL performance, decreased IADL performance, decreased play/leisure performance, decreased work, decreased rest/sleep, decreased social participation, decreased coordination, decreased knowledge of precautions, decreased knowledge of HEP, pain, decreased ROM/joint mobility, decreased strength, impaired sensation/sensibility, decreased balance, decreased transfers, impaired motor function/control/tone and fall risk. Adult Risk Screening There are no spiritual/cultural practices/values/needs that are important to know Initial Fall Risk Screening: SOCORRO has fallen in the last 6 months. She has fallen due to d/t LLE tightness. Her fall did not result in injury. SOCORRO does not have a fear of falling. She does not need assistance with sitting, standing or walking. Does not need assistance walking in her home. She needs assistance in an unfamiliar setting. The patient is not using an assistive device. Pain Scale: On a scale of 0 to 10, the patient rates the pain at 0. Living Will. Living Will: Living will on file. Did not bring. Healthcare POA: Health care proxy on file. Did not bring. Declaration of Mental Health Treatment: No mental health treatment on file. Insurance Insurance reviewed Visit number: 1 Approved number of visits: 1 [facility] OT/PT hard 40 Onset Date: 2021 Subjective Current Episode of Functional Impairment and Pain: Date of onset: 02/05/22 Patient reports: Pt presenting to outpatient OT with diagnosis of MS. Pt reporting she has significant weakness in BRENNEN arms. Pt reporting she tightens up her left arm. Pt also has significant numbness and tingling in L arm that appears random but is not constant. Pt lives with sp. Pt reporting she does not take showers anymore. Pt reporting the last year and a half her spouse would have to get in with her. Pt reporting significant difficulty with buttoning buttons and tying shoes snapping bra, pt also had difficulty with putting earrings.. Pt also reports difficulty putting her hair up. Pt reporting she does not use an AD. Pain Relieving Factors:. pt uses essential oils. Medical Screening: Reviewed medical history form with patient and medical screening assessed. Abnormal sensations . Night pain . Changes in vision . Bowel/bladder dysfunction . Fall Risk: moderate Rest and Sleep: impaired Functional Assessment and Medical Management Prior Level of Function: independent. Roles, Rituals, Routines: spouse Patient stated goal(s) for treatment include: increasing (more content not included)... Normal [facility] PT Progress Noteon 2 PT Progress Note Therapy Diagnosis Assessed Contracture, unspecified ankle (718.47) (M24.573) Multiple sclerosis (340) (G35) Unspecified abnormalities of gait and mobility (781.2) (R26.9) Plan Goals: Goals set and discussed today. In 2 weeks, pt will be IND and compliant with HEP for participation throughout POC. met In 4 weeks, pt will score 11 /30 on the FGA for safety with ADLs. met In 4 weeks, pt will demo 3 /5 MMT of L ankle for gait mechanics. not met Balance: In 8 weeks, pt will score 15 /30 on the FGA for safety with ambulation., goal met Strength: In 8 weeks, pt will demo 3+/5 MMT of L ankle and 5/5 MMT L hip and knee for ease with stair negotiation. not met Planned interventions include: education/instruction, gait training, home program, neuromuscular re-education, self care/home management, therapeutic activities and therapeutic exercises. Frequency and duration: 1 time(s) a week, for 4 weeks, for 4 visits. Potential to achieve rehab goals is good will continue to work on progressing toward plan of care as tolerated to be able to improve foot clearance during ambulation. Assessment Patient identified by name and Patient tolerates treatment with mild difficulty. Demo's weakness in Bilat LE's but demo's weakness in LLE compared to RLE. Demo's good tolerance to supine exercises and tolerates SLR in partial range. Adult Risk Screening There are no spiritual/cultural practices/values/needs that are important to know Initial Fall Risk Screening: SOCORRO has fallen in the last 6 months. She has fallen due to toes curl under while outside. Her fall did not result in injury. SOCORRO does not have a fear of falling. She does not need assistance with sitting, standing or walking. Does not need assistance walking in her home. She does not need assistance in an unfamiliar setting. The patient is not using an assistive device. Care Plan: Moderate Risk: Low risk interventions plus: do not leave patient on exam table unattended, supervised activity, educate patient/family on falls prevention, review safety initiatives with patient/family, family at bedside as allowed, yellow falls risk band, focus rounding attention, locate patient in area of high visibility, wheelchair, bed, or personal alarm, bedside commode, elevated toilet seat and pharmacy consult for medication concerns. Moderate: fall in last 6 months or fear of falling. Insurance Insurance reviewed Visit number: 5 Approved number of visits: 40 07/16 POC Insurance: medical mutual Evaluating therapist: Monik Mar PT, DPT PT dx: G35, R26.9 Subjective Patient reports:. Patient reports feeling pain in her R knee stating that she thinks she probably just overdid it at home. Precautions: Fall Risk: moderate Treatment Time in clinic started at 432 pm Time in clinic ended at 500 pm Total time in clinic is 28 minutes. Total timed code time is 26 minutes. Therapeutic exercise (67339): timed minutes 26, units 2 . Sci Fit /Nu Step L1 5 mins HEP: pelvic floor TrA sets and self massage techniques x Checked pelvic symmetry : symmetrical Bridges 10 x 3 Hook lying alt march with TrA x15 (15) Hook Lying hip add ISO with TrA x15 3 hold (P) SLR with TrA 15x each (P, reps) Seated hip abd orange TB x10. Standing hip abduction x15 (P, reps) Standing hip extension x15 (P, reps) Mini squat x10 Basic Kegel 10x HEP 2 step elevator 10x for HEP . 'Scores and Scales' Signatures Electronically signed by : Dorothy Aguayo [employer]; Feb 19 2022 5:05PM EST (Author) Electronically signed by : Monik Mar, PT; Feb 21 2022 3:13PM EST Normal [facility] PT Progress Noteon 2 PT Progress Note Therapy Diagnosis Assessed Multiple sclerosis (340) (G35) Unspecified abnormalities of gait and mobility (781.2) (R26.9) Contracture, unspecified ankle (718.47) (M24.573) Plan Goals: Goals set and discussed today. In 2 weeks, pt will be IND and compliant with HEP for participation throughout POC. met In 4 weeks, pt will score 11 /30 on the FGA for safety with ADLs. met In 4 weeks, pt will demo 3 /5 MMT of L ankle for gait mechanics. not met Balance: In 8 weeks, pt will score 15 /30 on the FGA for safety with ambulation., goal met Strength: In 8 weeks, pt will demo 3+/5 MMT of L ankle and 5/5 MMT L hip and knee for ease with stair negotiation. not met Planned interventions include: education/instruction, gait training, home program, neuromuscular re-education, self care/home management, therapeutic activities and therapeutic exercises. Frequency and duration: 1 time(s) a week, for 4 weeks, for 4 visits. Potential to achieve rehab goals is good Plan to continue with core and LE strengthening to allow for improved functional gait with ambulation. JW. Assessment Patient confirmed name and date of this session. Patient demonstrates symmetry with pelvis symmetry check. Patient able to increase reps with min fatigue noted. Difficulty lifting L LE as high as R with SLR. Added some standing LE strengthening exercises to challenge balance and strength, fair tolerance. Adult Risk Screening There are no spiritual/cultural practices/values/needs that are important to know Initial Fall Risk Screening: SOCORRO has fallen in the last 6 months. She has fallen due to toes curl under while outside. Her fall did not result in injury. SOCORRO does not have a fear of falling. She does not need assistance with sitting, standing or walking. Does not need assistance walking in her home. She does not need assistance in an unfamiliar setting. The patient is not using an assistive device. Care Plan: Moderate Risk: Low risk interventions plus: do not leave patient on exam table unattended, supervised activity, educate patient/family on falls prevention, review safety initiatives with patient/family, family at bedside as allowed, yellow falls risk band, focus rounding attention, locate patient in area of high visibility, wheelchair, bed, or personal alarm, bedside commode, elevated toilet seat and pharmacy consult for medication concerns. Moderate: fall in last 6 months or fear of falling. Insurance Insurance reviewed Visit number: 4 Approved number of visits: 40 07/16 POC Insurance: medical mutual Evaluating therapist: Monik Mar PT, DPT PT dx: G35, R26.9 Subjective Patient reports:. Patient states that she hasn't done HEP for a couple of days d/t her MS flaring. States that she has discomfort in L side, hands and foot. States that she has an eval next week. Home program performing as directed: Yes . Given for 3 way hip. Precautions: Fall Risk: moderate Objective Ortho MMT elbow R flex, ext: 5/5 L flex, ext: 4+/5 > 4+ /5 MMT wrist R flex, ext 5/5 L flex, ext 3+/5 > 4+ /5 MMT hip R- flex, abd, add 5/5 L- flex: 4 /5 > 4 /5 abd: 4 /5 > 4/5 add: 4+ /5 > 4+ /5 MMT knee R- flex: 5 /5 ext: 5 /5 L- flex: 4 / 5 > 4 /5 ext: 5 /5 > 5 /5 MMT ankle R- DF: 5 /5 EV: 5/5 L- DF: 3- /5 > 1 /5 EV: 3-/5 > 1 /5 FGA: 01/08 no AD gait belt > no AD gait belt Gait: slight flexion synergy of LUE, dec step length R, dec stance time L, dec eversion and DF L Transfers: pt uses BUE support Pt tends to sit with L foot inverted She demos slight flexion synergy of LLE with exercises. Outcome Measures Functional Gait Assessment score: 01/08 > Treatment Time in clinic started at 4:15 pm Time in clinic ended at 4:43 pm Total time in clinic is 28 minutes. Total timed code time is 26 minutes. Therapeutic exercise (84727): timed minutes 38, units 3 . Sci Fit /Nu Step L1 5 mins HEP: pelvic floor TrA sets and self massage techniques x Checked pelvic symmetry : symmetrical Bridges 10 x 3 Hook lying alt march with TrA x15 (15) Hook Lying hip add ISO with TrA x15 3 hold (P) SLR with TrA 10x each Seated hip abd orange TB x10. Standing hip abduction x10 (N) Standing hip extention x10 (N) Mini squat Basic Kegel 10x HEP 2 step elevator 10x for HEP . 'Scores and Scales' Signatures Electronically signed by : Sonal Douglas PTA; Feb 14 2022 4:56PM EST (Author) Electronically signed by : Monik Mar, PT; Feb 15 2022 10:44AM EST [facility] PT Progress Noteon 2 PT Progress Note Therapy Diagnosis Assessed Multiple sclerosis (340) (G35) Unspecified abnormalities of gait and mobility (781.2) (R26.9) Contracture, unspecified ankle (718.47) (M24.573) Plan Goals: Goals set and discussed today. In 2 weeks, pt will be IND and compliant with HEP for participation throughout POC. met In 4 weeks, pt will score 11 /30 on the FGA for safety with ADLs. met In 4 weeks, pt will demo 3 /5 MMT of L ankle for gait mechanics. not met Balance: In 8 weeks, pt will score 15 /30 on the FGA for safety with ambulation., goal met Strength: In 8 weeks, pt will demo 3+/5 MMT of L ankle and 5/5 MMT L hip and knee for ease with stair negotiation. not met Planned interventions include: education/instruction, gait training, home program, neuromuscular re-education, self care/home management, therapeutic activities and therapeutic exercises. Frequency and duration: 1 time(s) a week, for 4 weeks, for 4 visits. Potential to achieve rehab goals is good Assessment Patient confirmed name and date of this session. Ms. Grace is progressing well through their POC addressing spasms of L hemibody d/t MSAbel Pt has attended 3 sessions since 01/04/22 with many cancelled appts which is a barrier to progress. The pt demonstrates and verbalizes improvements in UE strength and balance. She demos improved gait mechanics with AFO and was educated on benefits of using one however impairments in strength, balance, and gait persist d/t MSAbel Pt is going to call for OT script Friday. The pt will benefit from continued skilled PT services 1x/week for 4 weeks to address the above stated impairments and functional limitations to maximize participation and ease in household, social, and work related activities. Plan to focus on ther ex, neuro re-ed, and gait training. Pt verbalized understanding and agreement to goals and POC. Thank you for this referral and please call [phone] with any questions or concerns. Adult Risk Screening There are no spiritual/cultural practices/values/needs that are important to know Initial Fall Risk Screening: SOCORRO has fallen in the last 6 months. She has fallen due to toes curl under while outside. Her fall did not result in injury. SOCORRO does not have a fear of falling. She does not need assistance with sitting, standing or walking. Does not need assistance walking in her home. She does not need assistance in an unfamiliar setting. The patient is not using an assistive device. Care Plan: Moderate Risk: Low risk interventions plus: do not leave patient on exam table unattended, supervised activity, educate patient/family on falls prevention, review safety initiatives with patient/family, family at bedside as allowed, yellow falls risk band, focus rounding attention, locate patient in area of high visibility, wheelchair, bed, or personal alarm, bedside commode, elevated toilet seat and pharmacy consult for medication concerns. Moderate: fall in last 6 months or fear of falling. Insurance Insurance reviewed Visit number: 3 Approved number of visits: 40 07/16 POC Insurance: medical mutual Evaluating therapist: Monik Mar PT, DPT PT dx: G35, R26.9 Subjective Patient reports:. Pt has been doing HEP. Pt brought AFO today. She inquires about OT also. Precautions: Fall Risk: moderate Objective Ortho MMT elbow R flex, ext: 5/5 L flex, ext: 4+/5 > 4+ /5 MMT wrist R flex, ext 5/5 L flex, ext 3+/5 > 4+ /5 MMT hip R- flex, abd, add 5/5 L- flex: 4 /5 > 4 /5 abd: 4 /5 > 4/5 add: 4+ /5 > 4+ /5 MMT knee R- flex: 5 /5 ext: 5 /5 L- flex: 4 / 5 > 4 /5 ext: 5 /5 > 5 /5 MMT ankle R- DF: 5 /5 EV: 5/5 L- DF: 3- /5 > 1 /5 EV: 3-/5 > 1 /5 FGA: 01/08 no AD gait belt > no AD gait belt Gait: slight flexion synergy of LUE, dec step length R, dec stance time L, dec eversion and DF L Transfers: pt uses BUE support Pt tends to sit with L foot inverted She demos slight flexion synergy of LLE with exercises. Outcome Measures Functional Gait Assessment score: 01/08 > 16/30 Treatment Time in clinic started at 4:15 pm Time in clinic ended at 4:43 pm Total time in clinic is 28 minutes. Total timed code time is 26 minutes. Therapeutic exercise (97189): timed minutes 26, units 2 . Recheck, review HEP, review POC NOT TODAY Sci Fit /Nu Step L1 5 mins HEP: pelvic floor TrA sets and self massage techniques (N) Checked pelvic symmetry : + L anterior pelvic rotation corrected with MET Basic Kegel 10x (N) HEP 2 step elevator 10x (N) for HEP Bridges 10x (N) Hook lying alt july with TrA x10 (N) Hook Lying hip add ISO with TrA x10 3 hold SLR with TrA 10x each (N) Seated hip abd orange TB x10. 'Scores and Scales' Signatures Electronically signed by : Monik Mar PT; Feb 01 2022 4:48PM EST (Author) [facility] [employer] Therapy Re-eval Noteon 02-01 Therapy Re-eval Note Therapy Diagnosis Assessed 1. Multiple sclerosis (340) (G35) 2. Unspecified abnormalities of gait and mobility (781.2) (R26.9) 3. Contracture, unspecified ankle (718.47) (M24.573) Plan Goals: Goals set and discussed today. In 2 weeks, pt will be IND and compliant with HEP for participation throughout POC. met In 4 weeks, pt will score 11 /30 on the FGA for safety with ADLs. met In 4 weeks, pt will demo 3 /5 MMT of L ankle for gait mechanics. not met Balance: In 8 weeks, pt will score 15 /30 on the FGA for safety with ambulation., goal met Strength: In 8 weeks, pt will demo 3+/5 MMT of L ankle and 5/5 MMT L hip and knee for ease with stair negotiation. not met Planned interventions include: education/instruction, gait training, home program, neuromuscular re-education, self care/home management, therapeutic activities and therapeutic exercises. Frequency and duration: 1 time(s) a week, for 4 weeks, for 4 visits. Potential to achieve rehab goals is good Assessment Patient confirmed name and date of this session. Ms. Grace is progressing well through their POC addressing spasms of L hemibody d/t MSAbel Diane has attended 3 sessions since 01/04/22 with many cancelled appts which is a barrier to progress. The pt demonstrates and verbalizes improvements in UE strength and balance. She demos improved gait mechanics with AFO and was educated on benefits of using one however impairments in strength, balance, and gait persist d/t MS. Pt is going to call for OT script Friday. The pt will benefit from continued skilled PT services 1x/week for 4 weeks to address the above stated impairments and functional limitations to maximize participation and ease in household, social, and work related activities. Plan to focus on ther ex, neuro re-ed, and gait training. Pt verbalized understanding and agreement to goals and POC. Thank you for this referral and please call [phone] with any questions or concerns. Adult Risk Screening There are no spiritual/cultural practices/values/needs that are important to know Initial Fall Risk Screening: SOCORRO has fallen in the last 6 months. She has fallen due to toes curl under while outside. Her fall did not result in injury. SOCORRO does not have a fear of falling. She does not need assistance with sitting, standing or walking. Does not need assistance walking in her home. She does not need assistance in an unfamiliar setting. The patient is not using an assistive device. Care Plan: Moderate Risk: Low risk interventions plus: do not leave patient on exam table unattended, supervised activity, educate patient/family on falls prevention, review safety initiatives with patient/family, family at bedside as allowed, yellow falls risk band, focus rounding attention, locate patient in area of high visibility, wheelchair, bed, or personal alarm, bedside commode, elevated toilet seat and pharmacy consult for medication concerns. Moderate: fall in last 6 months or fear of falling. Insurance Insurance reviewed Visit number: 3 Approved number of visits: 40 07/16 POC Insurance: medical mutual Evaluating therapist: Monik Mar PT, DPT PT dx: G35, R26.9 Subjective Patient reports:. Pt has been doing HEP. Pt brought AFO today. She inquires about OT also. Precautions: Fall Risk: moderate Objective Ortho MMT elbow R flex, ext: 5/5 L flex, ext: 4+/5 > 4+ /5 MMT wrist R flex, ext 5/5 L flex, ext 3+/5 > 4+ /5 MMT hip R- flex, abd, add 5/5 L- flex: 4 /5 > 4 /5 abd: 4 /5 > 4/5 add: 4+ /5 > 4+ /5 MMT knee R- flex: 5 /5 ext: 5 /5 L- flex: 4 / 5 > 4 /5 ext: 5 /5 > 5 /5 MMT ankle R- DF: 5 /5 EV: 5/5 L- DF: 3- /5 > 1 /5 EV: 3-/5 > 1 /5 FGA: 01/08 no AD gait belt > no AD gait belt Gait: slight flexion synergy of LUE, dec step length R, dec stance time L, dec eversion and DF L Transfers: pt uses BUE support Pt tends to sit with L foot inverted She demos slight flexion synergy of LLE with exercises. Outcome Measures Functional Gait Assessment score: 01/08 > Treatment Time in clinic started at 4:15 pm Time in clinic ended at 4:43 pm Total time in clinic is 28 minutes. Total timed code time is 26 minutes. Therapeutic exercise (58095): timed minutes 26, units 2 . Recheck, review HEP, review POC NOT TODAY Sci Fit /Nu Step L1 5 mins HEP: pelvic floor TrA sets and self massage techniques (N) Checked pelvic symmetry : + L anterior pelvic rotation corrected with MET Basic Kegel 10x (N) HEP 2 step elevator 10x (N) for HEP Bridges 10x (N) Hook lying alt july with TrA x10 (N) Hook Lying hip add ISO with TrA x10 3 hold SLR with TrA 10x each (N) Seated hip abd orange TB x10. 'Scores and Scales' Signatures Electronically signed by : Monik Mar, PT; Feb 01 2022 4:48PM EST (Author) [facility] [employer] PT Progress Noteon 2 PT Progress Note Therapy Diagnosis Assessed Multiple sclerosis (340) (G35) Unspecified abnormalities of gait and mobility (781.2) (R26.9) Contracture, unspecified ankle (718.47) (M24.573) Plan Goals: Goals set and discussed today. In 2 weeks, pt will be IND and compliant with HEP for participation throughout POC. In 4 weeks, pt will score 11 /30 on the FGA for safety with ADLs. In 4 weeks, pt will demo 3 /5 MMT of L ankle for gait mechanics. Balance: In 8 weeks, pt will score 15 /30 on the FGA for safety with ambulation. Strength: In 8 weeks, pt will demo 3+/5 MMT of L ankle and 5/5 MMT L hip and knee for ease with stair negotiation. Planned interventions include: education/instruction, gait training, home program, neuromuscular re-education, self care/home management, therapeutic activities and therapeutic exercises. Frequency and duration: 2 time(s) a week, for 8 weeks, for 16 visits . scheduling out 3 weeks until OT eval. Potential to achieve rehab goals is good Cont. with strengthening and ROM to allow improved endurance and safety with community ambulation. Assessment Patient was identified by name and date. MET performed to correct +L anterior rotation. Progressed core stability and LE PREs this session with c/o fatigue only. Instructed in self massage techniques with roller bar and thera cane and sheet given on pelvic floor and TrA sets. to cont at home. She voiced good under]standing. Adult Risk Screening There are no spiritual/cultural practices/values/needs that are important to know Initial Fall Risk Screening: SOCORRO has fallen in the last 6 months. She has fallen due to toes curl under while outside. Her fall did not result in injury. SOCORRO does not have a fear of falling. She does not need assistance with sitting, standing or walking. Does not need assistance walking in her home. She does not need assistance in an unfamiliar setting. The patient is not using an assistive device. Care Plan: Moderate Risk: Low risk interventions plus: do not leave patient on exam table unattended, supervised activity, educate patient/family on falls prevention, review safety initiatives with patient/family, family at bedside as allowed, yellow falls risk band, focus rounding attention, locate patient in area of high visibility, wheelchair, bed, or personal alarm, bedside commode, elevated toilet seat and pharmacy consult for medication concerns. Moderate: fall in last 6 months or fear of falling. Insurance Insurance reviewed Visit number: 2 Approved number of visits: 40 06/18 POC Insurance: medical mutual Evaluating therapist: Monik Mar PT, DPT PT dx: G35, R26.9 Subjective Patient reports:. She denies pain, but dies report spasm and weakness at L UE/LE limit her mobility. Notes her spasms became noticeably intense last 3 months. She has difficulty standing /walking long time frames. States she feels un level. Precautions: Fall Risk: moderate Treatment Time in clinic started at 4:20 pm Time in clinic ended at 5:05 pm Total time in clinic is 45 minutes. Total timed code time is 40 minutes. Therapeutic exercise (70273): timed minutes 40, units 3 . Sci Fit /Nu Step L1 5 mins HEP: pelvic floor TrA sets and self massage techniques (N) Checked pelvic symmetry : + L anterior pelvic rotation corrected with MET Basic Kegel 10x (N) HEP 2 step elevator 10x (N) for HEP Bridges 10x (N) Hook lying alt july with TrA x10 (N) Hook Lying hip add ISO with TrA x10 3 hold SLR with TrA 10x each (N) Seated hip abd orange TB x10. 'Scores and Scales' Signatures Electronically signed by : [employer]; Jan 22 2022 5:12PM EST (Author) Electronically signed by : Monik Mar PT; Jan 25 2022 9:30AM EST [facility] [employer] Absolute lymphocyte counton 12-24-2021 Lymphocytes Auto (Unsp spec) [#/Vol] 0.62 10*3/uL 0.83-4.51 [facility] Work Phone: Basophil percentageon 2021 Basophils/100 WBC (Bld) 0.7 % 0-1 [facility] Work Phone: Eosinophils/100 WBC (Bld) 1.7 % 0-5 [facility] Work Phone: Neutrophils (Bld) [#/Vol] 3.9 10*3/uL 2.0-7.7 [facility] Work Phone: Neutrophils/100 WBC (Bld) 72.5 % 47-70 [facility] Work Phone: WBC (Bld) [#/Vol] 5.4 10*3/uL 4.4-11.0 [facility] Work Phone: Blood erythrocytes count (nu mber/volume)on 12-24-2021 RBC (Bld) [#/Vol] 4.49 10*6/uL 4.2-5.4 [facility] Work Phone: [phone] Blood hemoglobin measurement (mass/volume)on 12-24-2021 Hemoglobin (Bld) [Mass/Vol] 13.4 g/dL 12.0-15.0 [facility] Work Phone: [phone] Blood lymphocytes/100 leukoc yteson 12-24-2021 Lymphocytes/100 WBC (Bld) 11.5 % 19-41 [facility] Work Phone: [phone] Blood monocytes/100 leukocyt eson 12-24-2021 Monocytes/100 WBC (Bld) 13.2 % 0-10 [facility] Work Phone: [phone] Blood platelet mean volumeon 12-24-2021 Platelet mean volume (Bld) [Entitic vol] 9.3 fL 6.2-12.0 [facility] Work Phone: [phone] Determination of erythrocyte mean corpuscular volume (MCV)on 12-24-2021 MCV (RBC) [Entitic vol] 87.8 fL 81-99 [facility] Work Phone: [phone] Hematocrit Auto (Bld) [Volum e fraction]on 12-24-2021 Hematocrit (Bld) [Volume fraction] 39.4 % 37-47 [facility] Work Phone: [phone] Laboratory - Hematology and Cell countson 12-24-2021 Erythrocyte distribution width (RBC) [Entitic vol] 39.5 fL 35.1-43.9 [facility] Work Phone: [phone] Erythrocyte distribution width (RBC) [Ratio] 12.3 % 11.6-14.6 [facility] Work Phone: [phone] Immature granulocytes/100 WBC (Bld) 0.400 % 0.0-0.9 [facility] Work Phone: [phone] Comment on above: IG% - Immature Granu locytes (promyelocytes, myelocytes and metamyelocytes) > 1% indicates that a LEFT SHIFT is Present. MCH (RBC) [Entitic mass] 29.8 pg 27.0-32.0 [facility] Work Phone: [phone] Nucleated RBC/100 WBC (Bld) [Ratio] 0 % 0-5 [facility] Work Phone: MCHC Auto (RBC) [Mass/Vol]on 12-24-2021 MCHC (RBC) [Mass/Vol] 34.0 g/dL 32-36 [facility] Work Phone: Platelets bldon 12-24-2021 Platelets (Bld) [#/Vol] 252 10*3/uL 150-450 [facility] Work Phone: DIGITAL MAMM SCREENING W/ TO Watson 12-10-2021 DIGITAL MAMM SCREENING W/ AMRIK Patient Name: SOCORRO GRACE STUDY: Digital mammography screening with amrik; 12/10/2021 3:11 pm ACCESSION NUMBER(S): [id number] ORDERING CLINICIAN: AGUSTINA ANNE INDICATION: Screening. COMPARISON: Comparison is made to prior digital mammograms dated 12/05/2020 FINDINGS: CC and MLO 2D digital mammograms and digital breast tomosynthesis images were obtained of the bilateral breasts. 3-D volume images were reconstructed in 4 views at an independent workstation as 1 mm slices through the breasts in both the CC and MLO projections. There are areas of scattered fibroglandular tissue. No discrete mass or focal asymmetry is identified. No suspicious microcalcifications or foci of architectural distortion are seen. There has been no significant change. This study was interpreted with CAD. IMPRESSION: No mammographic evidence of malignancy. BI-RADS CATEGORY: Category: 1 - Negative. Recommendation: 1 Year Screening. Electronically signed by: JUAN LUIS GRIMM MD Normal [facility] Mamm - Screening Mammogram w / Tomosynthesison 12-10-2021 MG Breast Screening Normal [facility] Work Phone: Absolute lymphocyte counton 10-11-2021 Lymphocytes Auto (Unsp spec) [#/Vol] 0.40 10*3/uL 0.83-4.51 [facility] Work Phone: Basophil percentageon 2021 Basophils/100 WBC (Bld) 0.8 % 0-1 [facility] Work Phone: Eosinophils/100 WBC (Bld) 1.7 % 0-5 [facility] Work Phone: Neutrophils (Bld) [#/Vol] 3.8 10*3/uL 2.0-7.7 [facility] Work Phone: [phone] Neutrophils/100 WBC (Bld) 78.0 % 47-70 [facility] Work Phone: [phone] WBC (Bld) [#/Vol] 4.8 10*3/uL 4.4-11.0 [facility] Work Phone: Blood erythrocytes count (nu mber/volume)on 10-11-2021 RBC (Bld) [#/Vol] 4.49 10*6/uL 4.2-5.4 [facility] Work Phone: Blood hemoglobin measurement (mass/volume)on 10-11-2021 Hemoglobin (Bld) [Mass/Vol] 13.5 g/dL 12.0-15.0 [facility] Work Phone: Blood lymphocytes/100 leukoc yteson 10-11-2021 Lymphocytes/100 WBC (Bld) 8.3 % 19-41 [facility] Work Phone: Blood manual differential co mment interpretation (narrative result)on 10-11-2021 Manual differential comment Marcelo (Bld) [Interp] See comment [facility] Work Phone: Comment on above: LYMPHOPENIA NOTED Blood monocytes/100 leukocyt eson 10-11-2021 Monocytes/100 WBC (Bld) 10.0 % 0-10 [facility] Work Phone: Blood platelet mean volumeon 10-11-2021 Platelet mean volume (Bld) [Entitic vol] 8.8 fL 6.2-12.0 [facility] Work Phone: [phone] Determination of erythrocyte mean corpuscular volume (MCV)on 10-11-2021 MCV (RBC) [Entitic vol] 90.2 fL 81-99 [facility] Work Phone: [phone] Hematocrit Auto (Bld) [Volum e fraction]on 10-11-2021 Hematocrit (Bld) [Volume fraction] 40.5 % 37-47 [facility] Work Phone: [phone] Laboratory - Hematology and Cell countson 10-11-2021 Erythrocyte distribution width (RBC) [Entitic vol] 40.7 fL 35.1-43.9 [facility] Work Phone: [phone] Erythrocyte distribution width (RBC) [Ratio] 12.6 % 11.6-14.6 [facility] Work Phone: [phone] Immature granulocytes/100 WBC (Bld) 1.200 % 0.0-0.9 [facility] Work Phone: [phone] Comment on above: IG% - Immature Granu locytes (promyelocytes, myelocytes and metamyelocytes) > 1% indicates that a LEFT SHIFT is Present. MCH (RBC) [Entitic mass] 30.1 pg 27.0-32.0 [facility] Work Phone: [phone] Nucleated RBC/100 WBC (Bld) [Ratio] 0 % 0-5 [facility] Work Phone: [phone] MCHC Auto (RBC) [Mass/Vol]on 10-11-2021 MCHC (RBC) [Mass/Vol] 33.3 g/dL 32-36 [facility] Work Phone: [phone] Platelets bldon 10-11-2021 Platelets (Bld) [#/Vol] 248 10*3/uL 150-450 [facility] Work Phone: [phone] Absolute lymphocyte counton 09-20-2021 Lymphocytes Auto (Unsp spec) [#/Vol] 0.27 10*3/uL 0.83-4.51 [facility] Work Phone: [phone] Basophil percentageon 2021 Basophils/100 WBC (Bld) 0.7 % 0-1 [facility] Work Phone: [phone] Cholesterol [Mass/Vol] 274 mg/dL <[address] [facility] Work Phone: [phone] Comment on above: <200 mg/dL Desirable 200-240 mg/dL Borderline >240 mg/dL High Risk Eosinophils/100 WBC (Bld) 2.5 % 0-5 [facility] Work Phone: Neutrophils (Bld) [#/Vol] 3.3 10*3/uL 2.0-7.7 [facility] Work Phone: Neutrophils/100 WBC (Bld) 75.1 % 47-70 [facility] Work Phone: Triglyceride [Mass/Vol] 148 mg/dL <199 [facility] Work Phone: Comment on above: The drugs N-Acetylcy steine and Metamizole may falsely depress this assay.Serum Triglycerides Reference Interval Normal <150 mg/dL Borderline high 150 - 199 mg/dL High 200 - 499 mg/dL Very High > or = 500 mg/dL WBC (Bld) [#/Vol] 4.4 10*3/uL 4.4-11.0 [facility] Work Phone: Blood erythrocytes count (nu mber/volume)on 09-20-2021 RBC (Bld) [#/Vol] 4.32 10*6/uL 4.2-5.4 [facility] Work Phone: Blood hemoglobin measurement (mass/volume)on 09-20-2021 Hemoglobin (Bld) [Mass/Vol] 12.9 g/dL 12.0-15.0 [facility] Work Phone: Blood lymphocytes/100 leukoc yteson 09-20-2021 Lymphocytes/100 WBC (Bld) 6.2 % 19-41 [facility] Work Phone: Blood manual differential co mment interpretation (narrative result)on 09-20-2021 Manual differential comment Marcelo (Bld) [Interp] SCANNED [facility] Work Phone: [phone] Blood monocytes/100 leukocyt eson 09-20-2021 Monocytes/100 WBC (Bld) 14.6 % 0-10 [facility] Work Phone: Blood platelet mean volumeon 09-20-2021 Platelet mean volume (Bld) [Entitic vol] 8.9 fL 6.2-12.0 [facility] Work Phone: [phone] Determination of erythrocyte mean corpuscular volume (MCV)on 09-20-2021 MCV (RBC) [Entitic vol] 89.4 fL 81-99 [facility] Work Phone: [phone] Hematocrit Auto (Bld) [Volum e fraction]on 09-20-2021 Hematocrit (Bld) [Volume fraction] 38.6 % 37-47 [facility] Work Phone: [phone] Iron measurement (mass/mass) on 09-20-2021 Iron (Unsp spec) [Mass/Mass] 131 ug/dL 50-170 [facility] Work Phone: [phone] Laboratory - Chemistry and C hemistry - challengeon 09-20-2021 Cobalamin (Vitamin B12) [Mass/Vol] 830 pg/mL 211-911 [facility] Work Phone: [phone] Laboratory - Hematology and Cell countson 09-20-2021 Erythrocyte distribution width (RBC) [Entitic vol] 40.9 fL 35.1-43.9 [facility] Work Phone: [phone] Erythrocyte distribution width (RBC) [Ratio] 12.4 % 11.6-14.6 [facility] Work Phone: [phone] Immature granulocytes/100 WBC (Bld) 0.900 % 0.0-0.9 [facility] Work Phone: [phone] Comment on above: IG% - Immature Granu locytes (promyelocytes, myelocytes and metamyelocytes) > 1% indicates that a LEFT SHIFT is Present. MCH (RBC) [Entitic mass] 29.9 pg 27.0-32.0 [facility] Work Phone: [phone] Nucleated RBC/100 WBC (Bld) [Ratio] 0 % 0-5 [facility] Work Phone: [phone] MCHC Auto (RBC) [Mass/Vol]on 09-20-2021 MCHC (RBC) [Mass/Vol] 33.4 g/dL 32-36 [facility] Work Phone: [phone] Panel Informationon 09-20 Total Iron Binding Capacity 392 ug/dL 250-450 [facility] Work Phone: Platelets bldon 09-20-2021 Platelets (Bld) [#/Vol] 235 10*3/uL 150-450 [facility] Work Phone: Serum or plasma cholesterol in HDL measurement (mass/volume)on 09-20-2021 Cholesterol in HDL [Mass/Vol] 99 mg/dL >40 [facility] Work Phone: Comment on above: The drugs N-Acetylcy steine and Metamizole may falsely depress this assay. Reference Range HDL <40 mg/dL Low HDL Cholesterol HDL >or= 60 mg/dL High HDL Cholesterol Serum or plasma cholesterol in VLDL measurement (mass/volume)on 09-20-2021 Cholesterol in VLDL [Mass/Vol] 30 mg/dL 5-40 [facility] Work Phone: Serum or plasma iron saturat ion measurement (mass fraction)on 09-20-2021 Iron saturation [Mass fraction] 33.4 % 15.0-55.0 [facility] Work Phone: Serum or plasma low density lipoprotein (LDL) cholesterol measurement (mass/volume)on 09-20-2021 Cholesterol in LDL [Mass/Vol] 145 mg/dL 0-130 [facility] Work Phone: Absolute lymphocyte counton 08-23-2021 Lymphocytes Auto (Unsp spec) [#/Vol] 0.34 10*3/uL 0.83-4.51 [facility] Work Phone: Basophil percentageon 2021 Basophils/100 WBC (Bld) 0.6 % 0-1 [facility] Work Phone: Eosinophils/100 WBC (Bld) 2.0 % 0-5 [facility] Work Phone: Neutrophils (Bld) [#/Vol] 4.2 10*3/uL 2.0-7.7 [facility] [facility] Work Phone: Neutrophils/100 WBC (Bld) 77.4 % 47-70 [facility] Work Phone: WBC (Bld) [#/Vol] 5.4 10*3/uL 4.4-11.0 [facility] Work Phone: Blood erythrocytes count (nu mber/volume)on 08-23-2021 RBC (Bld) [#/Vol] 4.34 10*6/uL 4.2-5.4 [facility] Work Phone: Blood hemoglobin measurement (mass/volume)on 08-23-2021 Hemoglobin (Bld) [Mass/Vol] 13.2 g/dL 12.0-15.0 [facility] Work Phone: Blood lymphocytes/100 leukoc yteson 08-23-2021 Lymphocytes/100 WBC (Bld) 6.3 % 19-41 [facility] Work Phone: Blood manual differential co mment interpretation (narrative result)on 08-23-2021 Manual differential comment Marcelo (Bld) [Interp] See comment [facility] Work Phone: Comment on above: LYMPHOPENIA NOTED Blood monocytes/100 leukocyt eson 08-23-2021 Monocytes/100 WBC (Bld) 13.0 % 0-10 [facility] Work Phone: Blood platelet mean volumeon 08-23-2021 Platelet mean volume (Bld) [Entitic vol] 9.5 fL 6.2-12.0 [facility] Work Phone: [phone] Determination of erythrocyte mean corpuscular volume (MCV)on 08-23-2021 MCV (RBC) [Entitic vol] 88.5 fL 81-99 [facility] Work Phone: [phone] Hematocrit Auto (Bld) [Volum e fraction]on 08-23-2021 Hematocrit (Bld) [Volume fraction] 38.4 % 37-47 [facility] Work Phone: [phone] Laboratory - Hematology and Cell countson 08-23-2021 Erythrocyte distribution width (RBC) [Entitic vol] 41.1 fL 35.1-43.9 [facility] Work Phone: Erythrocyte distribution width (RBC) [Ratio] 12.6 % 11.6-14.6 [facility] Work Phone: Immature granulocytes/100 WBC (Bld) 0.700 % 0.0-0.9 [facility] Work Phone: Comment on above: IG% - Immature Granu locytes (promyelocytes, myelocytes and metamyelocytes) > 1% indicates that a LEFT SHIFT is Present. MCH (RBC) [Entitic mass] 30.4 pg 27.0-32.0 [facility] Work Phone: Nucleated RBC/100 WBC (Bld) [Ratio] 0 % 0-5 [facility] Work Phone: MCHC Auto (RBC) [Mass/Vol]on 08-23-2021 MCHC (RBC) [Mass/Vol] 34.4 g/dL 32-36 [facility] Work Phone: Platelets bldon 08-23-2021 Platelets (Bld) [#/Vol] 220 10*3/uL 150-450 [facility] Work Phone: Absolute lymphocyte counton 06-25-2021 Lymphocytes Auto (Unsp spec) [#/Vol] 0.33 10*3/uL 0.83-4.51 [facility] Work Phone: Basophil percentageon 2021 Basophils/100 WBC (Bld) 0.8 % 0-1 [facility] Work Phone: Eosinophils/100 WBC (Bld) 3.3 % 0-5 [facility] Work Phone: Neutrophils (Bld) [#/Vol] 2.6 10*3/uL 2.0-7.7 [facility] Work Phone: Neutrophils/100 WBC (Bld) 72.0 % 47-70 [facility] Work Phone: WBC (Bld) [#/Vol] 3.6 10*3/uL 4.4-11.0 [facility]: Blood erythrocytes count (nu mber/volume)on 06-25-2021 RBC (Bld) [#/Vol] 4.60 10*6/uL 4.2-5.4 [facility] Work Phone: Blood hemoglobin measurement (mass/volume)on 06-25-2021 Hemoglobin (Bld) [Mass/Vol] 14.1 g/dL 12.0-15.0 [facility] Work Phone: Blood lymphocytes/100 leukoc yteson 06-25-2021 Lymphocytes/100 WBC (Bld) 9.2 % 19-41 [facility] Work Phone: Blood manual differential co mment interpretation (narrative result)on 06-25-2021 Manual differential comment Marcelo (Bld) [Interp] SCANNED [facility] Work Phone: Comment on above: LYMPHOPENIA NOTED Blood monocytes/100 leukocyt eson 06-25-2021 Monocytes/100 WBC (Bld) 13.9 % 0-10 [facility] Work Phone: Blood platelet mean volumeon 06-25-2021 Platelet mean volume (Bld) [Entitic vol] 9.0 fL 6.2-12.0 [facility] Work Phone: Determination of erythrocyte mean corpuscular volume (MCV)on 06-25-2021 MCV (RBC) [Entitic vol] 86.3 fL 81-99 [facility] Work Phone: [phone] Hematocrit Auto (Bld) [Volum e fraction]on 06-25-2021 Hematocrit (Bld) [Volume fraction] 39.7 % 37-47 [facility] Work Phone: [phone] Laboratory - Hematology and Cell countson 06-25-2021 Erythrocyte distribution width (RBC) [Entitic vol] 42.0 fL 35.1-43.9 [facility] Work Phone: [phone] Erythrocyte distribution width (RBC) [Ratio] 13.5 % 11.6-14.6 [facility] Work Phone: [phone] Immature granulocytes/100 WBC (Bld) 0.800 % 0.0-0.9 [facility] Work Phone: Comment on above: IG% - Immature Granu locytes (promyelocytes, myelocytes and metamyelocytes) > 1% indicates that a LEFT SHIFT is Present. MCH (RBC) [Entitic mass] 30.7 pg 27.0-32.0 [facility] Work Phone: Nucleated RBC/100 WBC (Bld) [Ratio] 0 % 0-5 [facility] Work Phone: MCHC Auto (RBC) [Mass/Vol]on 06-25-2021 MCHC (RBC) [Mass/Vol] 35.5 g/dL 32-36 [facility] Work Phone: No Panel Informationon 06-25 Ionized Calcium 5.4 mg/dL [facility] Work Phone: Comment on above: Performed at: [place] [id number] Director: Kvng Branham PhD, Phone: [phone] Platelets bldon 06-25-2021 Platelets (Bld) [#/Vol] 243 10*3/uL 150-450 [facility] Work Phone: Review by pathologiston 06-12 Pathologist review Marcelo (Unsp spec) [Interp] Reviewed [facility] Work Phone: Comment on above: Previous reported re sult: [place] Edited by: RGOSHANTELLE on 06/27/21:0927Lymphopenia.Clinical correlation suggested.[place] D.O. 06/27/21 AMENDED REPORT 06/27/21926 PATH REV previously reported as: [place] CBCon 05-09-2021 Erythrocyte distribution width (RBC) [Ratio] 13.6 % Normal 11.5 - 14.5 [facility] Comment on above: Performed By: #### C BC #### [place] [address] Hematocrit (Bld) [Volume fraction] 41.5 % Normal 36.0 - 46.0 [facility] Comment on above: Performed By: #### C BC #### [address] [address] Hemoglobin (Bld) [Mass/Vol] 13.9 g/dL Normal 12.0 - 16.0 [facility] Comment on above: Performed By: #### C BC #### [address] [address] MCHC (RBC) [Mass/Vol] 33.5 g/dL Normal 32.0 - 36.0 [facility] Comment on above: Performed By: #### C BC #### [address] [address] MCV (RBC) [Entitic vol] 90 fL Normal 80 - 100 [facility] Comment on above: Performed By: #### C BC #### [address] [address] Platelets (Bld) [#/Vol] 273 10*3/uL Normal 150 - 450 [facility] Comment on above: Performed By: #### C BC #### [address] [address] RBC 4.63 x10E12/L Normal 4.00 - 5.20 [facility] Comment on above: Performed By: #### C BC #### [address] [address] WBC (Bld) [#/Vol] 4.4 10*3/uL Normal 4.4 - 11.3 [facility] Comment on above: Performed By: #### C BC #### [address] [address] COMPREHENSIVE PANELon 2020 Albumin [Mass/Vol] 4.6 g/dL Normal 3.4 - 5.0 [facility] Comment on above: Performed By: #### C MP #### [address] [address] ALP [Catalytic activity/Vol] 61 U/L Normal 33 - 110 [facility] Comment on above: Performed By: #### C MP #### [address] [address] ALT [Catalytic activity/Vol] 18 U/L Normal 7 - 45 [facility] Comment on above: Result Comment: Nhung ents treated with Sulfasalazine may generate falsely decreased results for ALT. Performed By: #### C MP #### [address] [address] Anion gap [Moles/Vol] 10 mmol/L Normal 10 - 20 [facility] Comment on above: Performed By: #### C MP #### [address] [address] AST [Catalytic activity/Vol] 21 U/L Normal 9 - 39 [facility] Comment on above: Performed By: #### C MP #### [address] [address] Bilirubin [Mass/Vol] 1.1 mg/dL Normal 0.0 - 1.2 [facility] Comment on above: Performed By: #### C MP #### [address] [address] Calcium [Mass/Vol] 10.5 mg/dL High 8.6 - 10.3 [facility] Comment on above: Performed By: #### C MP #### [address] [address] Chloride [Moles/Vol] 101 mmol/L Normal 98 - 107 [facility] Comment on above: Performed By: #### C MP #### [address] [address] Creatinine [Mass/Vol] 0.65 mg/dL Normal 0.50 - 1.05 [facility] Comment on above: Performed By: #### C MP #### [address] [address] GFR- AM. >60 Normal >60 [facility] Comment on above: Result Comment: CALC ULATIONS OF ESTIMATED GFR ARE PERFORMED USING THE MDRD STUDY EQUATION FOR THE IDMS-TRACEABLE CREATININE METHODS. CLIN CHEM 2007;53:766-72 Performed By: #### C MP #### [address] [place] [address] GFR-NON AM. >60 Normal >60 [facility] Comment on above: Performed By: #### C MP #### [address] [address] Glucose [Mass/Vol] 83 mg/dL Normal 74 - 99 [facility] Comment on above: Performed By: #### C MP #### [address] [address] HCO3 (Bld) [Moles/Vol] 30 mmol/L Normal 21 - 32 [facility] Comment on above: Performed By: #### C MP #### [address] [address] Potassium [Moles/Vol] 4.1 mmol/L Normal 3.5 - 5.3 [facility] Comment on above: Performed By: #### C MP #### [address] [address] Protein [Mass/Vol] 8.2 g/dL Normal 6.4 - 8.2 [facility] Comment on above: Performed By: #### C MP #### [address] [address] Sodium [Moles/Vol] 137 mmol/L Normal 136 - 145 [facility] Comment on above: Performed By: #### C MP #### [address] [address] Urea nitrogen [Mass/Vol] 11 mg/dL Normal 6 - 23 [facility] Comment on above: Performed By: #### C MP #### [address] [address] DS-DNA Abon 08-21-2018 DS-DNA Ab SEE BELOW Normal [facility] Comment on above: Result Comment: DNA Antibody w/ Conf. 13 <30 IU/mL Negative for ds DNA Antibodies Negative: <30 IU/mL Equivocal: 30-74 IU/mL Positive: >74 IU/mL Performing Laboratory: [facility] [address] [place] [address] Performed By: #### D NADX #### [address] [place], [place] [address] C3on 08-19-2018 C3 139.0 mg/dL Normal 90.0-180.0 [facility] Comment on above: Performed By: #### C 3 #### [facility] [address] [place] [address] C4on 08-19-2018 C4 24.3 mg/dL Normal 10.0-40.0 [facility] Comment on above: Performed By: #### C 4 #### [place] [address] CPKon 08-19-2018 CK [Catalytic activity/Vol] 110 U/L Normal 26-192 [facility] Comment on above: Performed By: #### C K #### [place] [address] Creatinine,Urineon 9 Creatinine,Urine 57.3 mg/dL Normal [facility] Comment on above: Performed By: #### C REAU #### [place] [address] Urinalysis, reflexon 019 Reflex Comment see below Normal [facility] Comment on above: Result Comment: Refl ex to culture is not indicated based on established laboratory criteria. Performed By: #### U RIN #### [place] [address] Bacteria LM.HPF (Urine sed) [#/Area] NONE Normal None [facility] Comment on above: Performed By: #### U RIN #### [place] [address] Ep Cells Urine 1.7 /hpf Normal 0.0-5.0 [facility] Comment on above: Performed By: #### U RIN #### [place] [address] Hyaline Cast 0.0 /lpf Normal 0.0-1.0 [facility] Comment on above: Performed By: #### U RIN #### [place] [address] RBC LM.HPF (Urine sed) [#/Area] 0.2 /[HPF] Normal 0.0-5.0 [facility] Comment on above: Performed By: #### U RIN #### [facility] [address] [place] [address] WBC, reflex 1.50 /hpf Normal 0.00-5.00 [facility] Comment on above: Performed By: #### U RIN #### [facility] [address] [place] [address] Appearance (U) CLEAR Normal [facility] Comment on above: Performed By: #### U RIN #### [facility] [address] [place] [address] Bilirubin (U) [Mass/Vol] Negative Normal Negative [facility] Comment on above: Performed By: #### U RIN #### [place] [address] Color (U) YELLOW Normal [facility] Comment on above: Performed By: #### U RIN #### [place] [address] Glucose Ql (U) Negative Normal Negative [facility] Comment on above: Performed By: #### U RIN #### [place] [address] Hemoglobin,Urine Negative Normal Negative [facility] Comment on above: Performed By: #### U RIN #### [place] [address] Ketone Urine Negative Normal Negative [facility] Comment on above: Performed By: #### U RIN #### [facility] [address] [place] [address] Leukocyte esterase Test strip Ql (U) TRACE Abnormal Negative [facility] Comment on above: Performed By: #### U RIN #### [place] [address] Nitrite reflex Negative Normal Negative [facility] Comment on above: Performed By: #### U RIN #### [place] [address] pH (U) 5.5 [pH] Normal 5.0-8.0 [facility] Comment on above: Performed By: #### U RIN #### [facility] [address] [place], [place] [address] Protein (U) [Mass/Vol] Negative Normal Negative [facility] Comment on above: Performed By: #### U RIN #### [facility] [address] [place], [place] [address] Specific [place], Ur 1.014 Normal 1.005-1 .03 0 [facility] Comment on above: Performed By: #### U RIN #### [facility] [address] [place], [place] [address] Urobilinogen,Ur 0.2 EU/dL Normal 0.0-1.0 [facility] Comment on above: Performed By: #### U RIN #### [place] [address] Urine Proteinon 08-19-2018 Protein Ql (U) 14.6 mg/dL High 0.0-11.9 [facility] Comment on above: Performed By: #### U P #### [place] [address] Lipid Profileon 08-12-2018 Cholesterol in HDL mass conc 113 mg/dL High 40-60 [facility] Comment on above: Performed By: #### 1 [id number] #### [employer] [employer] [address] [place] [address] Cholesterol in LDL mass conc 97 mg/dL Normal 0-130 [facility] Comment on above: Result Comment: <100 OPTIMAL 100-129 NEAR / ABOVE OPTIMAL 130-159 BORDERLINE HIGH 160-189 HIGH >190 VERY HIGH CALC LDL NOT VALID WHEN TRIGLYCERIDE IS >400 MG/DL Performed By: #### 1 [id number] #### RELL [employer] [place] [address] Cholesterol in VLDL mass conc 13 mg/dL Normal 0-40 [facility] Comment on above: Performed By: #### 1 [id number] #### [facility] [employer] [address] [place] [address] Cholesterol mass conc 223 mg/dL High 0-199 [facility] Comment on above: Result Comment: TOTA L CHOLEESTEROL: <200 NORMAL 200 - 239 BORDERLINE HIGH >240 HIGH Performed By: #### 1 [id number] #### [facility] [employer] [address] [place] [address] Triglyceride mass conc 63 mg/dL Normal 0-149 [facility] Comment on above: Result Comment: AGE DESIRABLE BORDERLINE HIGH 91 D - 9 Y 0 - 74 75 - 99 > 100 10 - 19 Y 0 - 89 90 - 129 > 130 20 -24 Y 0 - 114 115 - 149 > 150 > 25 0 - 149 150 - 199 200 - 499 Performed By: #### 1 [id number] #### [facility] [employer] [address] [place] [address] MRI Brain w/ + w/o Contrasto n 08-05-2018 MRI Brain w/ + w/o Contrast Exam Date/Time: 08/05/2018 11:20 EDT Reason for Exam: MULTIPLE SCLEROSIS Report STUDY: MRI Brain w/ + w/o Contrast; 08/05/2018 11:20 am INDICATION: MULTIPLE SCLEROSIS. Personal medical history of multiple sclerosis. COMPARISON: None. ACCESSION NUMBER(S): [id number] ORDERING CLINICIAN: Arlene Buckley TECHNIQUE: Axial T2, FLAIR, DWI, gradient echo T2 and sagittal and coronal T1 weighted images of brain were acquired. Post contrast T1 weighted images were acquired after administration of 13 mL gadobenate (Multihance) gadolinium based intravenous contrast. FINDINGS: CSF Spaces: The sulci, ventricles and basal cisterns are normal. Parenchyma: There is no diffusion restriction abnormality to suggest acute infarct. There are multiple subcortical and periventricular hyperintensities along with focal hyperintensities in the ventral rosa, right pontomedullary junction and right and possibly left cerebellar hemispheres. The pontine and several of the white matter hyperintensities are also hypointense on the T1 images. 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 The brain parenchyma including the focal hyperintensities enhances normally. No hemorrhage or mass is noted. Paranasal Sinuses and Mastoids: Visualized paranasal sinuses and mastoid air cells are unremarkable. IMPRESSION: The 5 focal hyperintensities in the subcortical and periventricular white matter, rosa, pontomedullary junction and cerebellar hemispheres are consistent with clinical history of multiple sclerosis. There were no old examinations for comparison. The brain parenchyma including the hyperintensities enhances normally; no abnormal enhancement from active demyelination is noted. Exam Date/Time: 08/05/2018 11:20 EDT Report No hemorrhage, mass or infarct is noted. FINAL REPORT Dictated: 08/05/2018 1:06 pm Chuck Constantino MD Signed (Electronic Signature): 08/05/2018 1:06 pm Signed by: Chuck Constantino MD Technologist: STEFANIA Normal [facility] Auto Diffon 07-21-2018 Basophils #/vol (Bld) 0.0 E3/mcL Normal 0.0-0.2 [facility] Comment on above: Order Comment: Order Added by Discern Expert. Performed By: #### 2 [id number] #### RELL [employer] [address] [place] [address] Basophils/100 WBC (Bld) 0.6 % Normal 0.0-2.0 [facility] Comment on above: Order Comment: Order Added by Discern Expert. Performed By: #### 2 [id number] #### [facility] [employer] [address] [place] [address] Eos Absolute 0.1 E3/mcL Normal 0.0-0.7 [facility] Comment on above: Order Comment: Order Added by Discern Expert. Performed By: #### 2 [id number] #### [facility] [employer] [address] [place] [address] Eosinophils/100 WBC (Bld) 1.5 % Normal 0.0-11.0 [facility] Comment on above: Order Comment: Order Added by Discern Expert. Performed By: #### 2 [id number] #### [facility] [employer] [address] [place] [address] Lymphocytes #/vol (Bld) 0.7 E3/mcL Low 1.2-3.4 [facility] Comment on above: Order Comment: Order Added by Discern Expert. Performed By: #### 2 [id number] #### RELL [employer] [address] [place] [address] Lymphocytes/100 WBC (Bld) 12.1 % Low 20.0-55.0 [facility] Comment on above: Order Comment: Order Added by Discern Expert. Performed By: #### 2 [id number] #### RELL [employer] [address] [place] [address] Summit Absolute 0.6 E3/mcL Normal 0.0-0.7 [facility] Comment on above: Order Comment: Order Added by Discern Expert. Performed By: #### 2 [id number] #### RELL [facility] [address] [place] [address] Monocytes/100 WBC (Bld) 10.0 % Normal 0.0-10.0 [facility] Comment on above: Order Comment: Order Added by Discern Expert. Performed By: #### 2 [id number] #### RELL [employer] [address] [place] [address] Neutro Absolute 4.5 E3/mcL Normal 1.4-6.5 [facility] Comment on above: Order Comment: Order Added by Discern Expert. Performed By: #### 2 [id number] #### RELL [employer] [address] [place], [place] [id number] Neutro Auto 75.8 % High 37.0-75.0 [facility] Comment on above: Order Comment: Order Added by Discern Expert. Performed By: #### 2 [id number] #### RELL [employer] [address] [place] [address] CBC w/ Auto Diffon 9 Erythrocyte distribution width Ratio (RBC) 13.6 % Normal 11.5-14.5 [facility] Comment on above: Performed By: #### 2 [id number] #### RELL [address] [address] [place] [address] Hematocrit Volume Fraction (Bld) 40.6 % Normal 36.0-48.0 [facility] Comment on above: Performed By: #### 2 [id number] #### RELL [employer] [address] [place] [address] Hemoglobin mass conc (Bld) 13.7 g/dL Normal 12.0-16.0 [facility] Comment on above: Performed By: #### 2 [id number] #### RELL [employer] [address] [place] [address] MCH Entitic mass (RBC) 30.9 pg Normal 27.0-31.0 [facility] Comment on above: Performed By: #### 2 [id number] #### RELL [employer] [address] [place] [id number] MCHC mass conc (RBC) 33.7 g/dL Normal 33.0-37.0 [facility] Comment on above: Performed By: #### 2 [id number] #### RELL [employer] [address] [place] [id number] MCV Entitic volume (RBC) 91.6 fL Normal 78.0-100.0 [facility] Comment on above: Performed By: #### 2 [id number] #### RELL [employer] [address] [place] [id number] Platelet mean volume Entitic volume (Bld) 7.5 fL Normal 7.4-11.0 [facility] Comment on above: Performed By: #### 2 [id number] #### RELL Rem[facility] [place] [address] Platelets #/vol (Bld) 223 E3/mcL Normal 130-400 [facility] Comment on above: Performed By: #### 2 [id number] #### RELL Rem[facility] [place] [id number] RBC #/vol (Bld) 4.44 E6/mcL Normal 3.90-5.40 [facility] Comment on above: Performed By: #### 2 [id number] #### RELL [employer] [address] [place] [id number] WBC #/vol (Bld) 5.9 E3/mcL Normal 3.6-11.0 [facility] Comment on above: Performed By: #### 2 [id number] #### RELL [facility] [place] [id number] Ferritinon 07-21-2018 Ferritin mass conc 144.0 ng/mL Normal 8.0-150.0 [facility] Comment on above: Performed By: #### 1 [id number] #### RELL Send Outs [employer]section [facility] [place] [id number] Folateon 07-21-2018 Folate Lvl >23.90 Normal >=5.00 [facility] Comment on above: Performed By: #### 2 [id number] #### RELL [employer] [address] [place] [address] Hep Func Panelon 07-21-2018 Albumin mass conc 4.5 g/dL Normal 3.4-5.[address] [facility] Comment on above: Performed By: #### 1 [id number] #### RELL [employer] [address] [place] [address] Albumin/Globulin mass ratio 1.6 {ratio} Normal 1.1-1.9 [facility] Comment on above: Performed By: #### 1 [id number] #### RELL [employer] [address] [place] [address] Alk Phos 66 Int._Unit/L Normal 33-110 [facility] Comment on above: Performed By: #### 1 [id number] #### RELL [employer] [address] [place] [address] ALT enzyme act/vol 18 Int._Unit/L Normal 7-45 [facility] Comment on above: Performed By: #### 1 [id number] #### RELL [employer] [address] [place] [address] AST enzyme act/vol 23 Int._Unit/L Normal 9-39 [facility] Comment on above: Performed By: #### 1 [id number] #### RELL [employer] [address] [place] [address] Bili Direct 0.14 mg/dL Normal 0.00-0.30 [facility] Comment on above: Performed By: #### 1 [id number] #### RELL [employer] [address] [place] [address] Bili Indirect 0.48 mg/dL Normal [facility] Comment on above: Result Comment: No e stablished ranges available for the indirect bilirubin Performed By: #### 1 [id number] #### RELL [employer] [address] [place] [address] Bili Total 0.62 mg/dL Normal 0.00-1.20 [facility] Comment on above: Performed By: #### 1 [id number] #### RELL [employer] [address] [place] [address] Globulin mass conc (S) 3.0 g/dL Normal 2.0-4.0 [facility] Comment on above: Performed By: #### 1 [id number] #### RELL [employer] [address] [place] [address] Protein mass conc 7.3 g/dL Normal 6.4-8.[address] [facility] Comment on above: Performed By: #### 1 [id number] #### RELL [employer]section [address] [place] [address] Ironon 07-21-2018 Iron mass conc 107 microgram/dL Normal 35-150 [facility] [facility] Comment on above: Performed By: #### 1 [id number] #### RELL Send Outs Subsection [address] [place] [address] Retic Counton 07-21-2018 Reticulocyte 1.4 % Normal 0.5-1.5 [facility] Comment on above: Performed By: #### [id number] #### RELL RemHemo [address] [place] [address] Vit B12on 07-21-2018 Cobalamin (Vitamin B12) mass conc 433 pg/mL Normal 180-914 [facility] Comment on above: Performed By: #### 1 [id number] #### RELL Send Outs Subsection [address] [place] [address] BD Bone Density DEXAon 04-10 BD Bone Density DEXA Exam Date/Time: 04/10/2018 10:59 EST Reason for Exam: OSTEOPENIA Report STUDY: BD Bone Density DEXA; 04/10/2018 10:59 am INDICATION: OSTEOPENIA. Evaluate for osteopenia/osteoporosis, ACCESSION NUMBER(S): [id number] ORDERING CLINICIAN: Agustina Stacy FINDINGS: Standard measurements were obtained utilizing an [employer] Energy X-ray Absorptiometry bone densitometer. Data obtained includes planar bone density measurements over the left hip and lumbar spine. Comparison of measured data and standardized mean data for a young adult population (when peak bone mass occurs) results in a T score. This represents the number of standard deviations above or below the mean of a young adult population. Comparison of measured data to standards from an age-adjusted population similarly yields a Z score. Left femoral neck Bone density: 0.643 g/cm2 T score: -1.9 Z Score: -0.8 Lumbar Spine (L1-4) Bone density: 1.000 g/cm2 T Score: -0.4 Z Score: 0.6 World Health Organization (WHO) criteria defines normal bone density as that which is less than 1 standard deviation below the mean of a young adult population. Osteopenia is defined as a measured bone density that is between 1 and 2.5 standard deviations below the mean of a young adult population. Osteoporosis is defined as a measured bone density that is greater than or equal to 2.5 standard deviations below the mean of a young adult population. IMPRESSION: According to World Health Organization criteria, bone mineral density of the left femoral neck and lumbar spine is osteopenic. The patient is at increased risk for fracture. Exam Date/Time: 04/10/2018 10:59 EST Report 10 year fracture risk for major osteoporotic fracture is 6.8 %. 10 year fracture risk for hip fracture 0.7 % according to the World Health Organization FRAX- fracture risk assessment tool. Left total hip bone mineral density has decreased 16.9 % when compared to the prior study of 03/20/2011. Lumbar spine bone mineral density has decreased 10.7 % when compared to the prior study. FINAL REPORT Dictated: 04/10/2018 11:36 am Juan Luis Grimm MD Signed (Electronic Signature): 04/10/2018 11:36 am Signed by: Juan Luis Grimm MD Technologist: LIDIA Normal [facility] Lab Miscellaneouson 12-18-19 18 Status See Ref Lab Report Normal [facility] Comment on above: Performed By: #### 1 [id number] #### RELL Send Outs Subsection [address] [place] [address] Status See Ref Lab Report Normal [facility] Comment on above: Performed By: #### 1 [id number] #### RELL Send Outs Subsection [facility] [place] [address] Status See Ref Lab Report Normal [facility] Comment on above: Performed By: #### 1 [id number] #### RELL Send Outs Subsection [address] [place] [address] DNA Ab (DS)on 12-11-2017 DNA Ab (DS) 1 International_Unit/mL Normal 0-9 [facility] Comment on above: Result Comment: Nega tive <5 Equivocal 5 - 9 Positive >9 Performed At: [facility] [address] [id number] Carrol Calderon PhD Ph:[phone] Performed By: #### 1 [id number] #### RELL Send Outs Subsection [address] [place] [address] Lab Miscellaneouson 12-11-19 Test Name sjogrens Normal [facility] Comment on above: Performed By: #### 1 [id number] #### RELL Send Outs Subsection [address] [place] [address] Test Name histone ab [facility] Comment on above: Performed By: #### 1 [id number] #### RELL Send Outs Subsection [address] [place] [address] Test Name anit smooth ab [facility] Comment on above: Performed By: #### 1 [id number] #### RELL Send Outs Subsection [address] [place] [address] MA Mamm Screen w/CAD if perf ormed bilaton 10-23-2017 MA Mamm Screen w/CAD if performed bilat Exam Date/Time: 10/17/2017 15:00 EDT Reason for Exam: Screening Report STUDY: Digital mammography screening; 10/17/2017 3:00 pm ACCESSION NUMBER(S): [id number] ORDERING CLINICIAN: Agustina Stacy INDICATION: Screening. COMPARISON: Comparison is made to prior digitized film screen mammograms dated 03/20/2011 FINDINGS: CC and MLO 2D digital mammographic images of the bilateral breasts were obtained. There are areas of scattered fibroglandular tissue. No discrete mass or focal asymmetry is identified. No suspicious microcalcifications or foci of architectural distortion are seen. There has been no significant change. This study was interpreted with CAD. IMPRESSION: No mammographic evidence of malignancy. BI-RADS CATEGORY: Category: 2 - Benign Finding. Recommendation: Normal Interval Follow-up, Over Age 40. Recall Interval: 12 Months. Breast Density: Scattered Fibroglandular Density. FINAL REPORT Dictated: 10/23/2017 8:33 am Juan Luis Grimm MD Signed (Electronic Signature): 10/23/2017 8:33 am Signed by: Juan Luis Grimm MD Technologist: CHITO Assessment: BI-RADS Category 2-Benign finding Recommendation: Normal interval follow-up Normal [facility] Vital Signs Date Time Vital Sign Value Performing Clinician Facility 11-23-2024 15:52-0400 Body height 167.6 cm Dimple Salazar VETERINARY LABORATORY DIAGNOSTICIAN.DIRECTOR REGULATORY COMPLIANCE Work Phone: [facility] 11-23-2024 15:52-0400 Body mass index (BMI) [Ratio] 23.4 kg/m2 Dimple Coyner VETERINARY LABORATORY DIAGNOSTICIAN.DIRECTOR REGULATORY COMPLIANCE Work Phone: [facility] 11-23-2024 15:52-0400 Body weight 65.77 kg Dimple Coyner VETERINARY LABORATORY DIAGNOSTICIAN.DIRECTOR REGULATORY COMPLIANCE Work Phone: [facility] 10-29-2024 15:14-0400 Body temperature 97.8 [degF] Dr. Slade Duarte MD Work Phone: [facility] 10-29-2024 15:14-0400 Body weight 68.[address] Slade Duarte MD Work Phone: [facility] 10-29-2024 15:14-0400 Diastolic blood pressure 84 mm[Hg] Dr. Slade Duarte MD Work Phone: [facility] 10-29-2024 15:14-0400 Heart rate 78 /min Dr. Slade Duarte MD Work Phone: [facility] 10-29-2024 15:14-0400 Respiratory rate 16 /min Dr. Slade Duarte MD Work Phone: [facility] 10-29-2024 15:14-0400 SaO2% (BldA) [Mass fraction] 100 % Dr. Slade Duarte MD Work Phone: [facility] 10-29-2024 15:14-0400 Systolic blood pressure 125 mm[Hg] Dr. Slade Duarte MD Work Phone: [facility] 09-13-2024 15:00-0400 Body height 166.[address] [facility] 09-13-2024 15:00-0400 Body mass index (BMI) [Ratio] 25 kg/m2 Out [facility] 09-13-2024 15:00-0400 Body temperature 98.2 [degF] Out [facility] 09-13-2024 15:00-0400 Body weight 69.[address] [facility] 09-13-2024 15:00-0400 Diastolic blood pressure 86 mm[Hg] Out [facility] 09-13-2024 15:00-0400 Heart rate 89 /min Out [facility] 09-13-2024 15:00-0400 Respiratory rate 15 /min Out [facility] 09-13-2024 15:00-0400 SaO2% (BldA) [Mass fraction] 96 % Out [facility] 09-13-2024 15:00-0400 Systolic blood pressure 134 mm[Hg] Out [facility] 08-27-2024 15:35-0400 Body height 165.1 cm Laisha Yaya VETERINARY LABORATORY DIAGNOSTICIAN-DIRECTOR REGULATORY COMPLIANCE Work Phone: [facility] 08-27-2024 15:35-0400 Body mass index (BMI) [Ratio] 24.78 kg/m2 Laisha Yaya VETERINARY LABORATORY DIAGNOSTICIAN-DIRECTOR REGULATORY COMPLIANCE Work Phone: [facility] 08-27-2024 15:35-0400 Body weight 67.54 kg Laisha Yaya VETERINARY LABORATORY DIAGNOSTICIAN-DIRECTOR REGULATORY COMPLIANCE Work Phone: [facility] 08-27-2024 15:35-0400 Diastolic blood pressure 86 mm[Hg] Laisha Yaya VETERINARY LABORATORY DIAGNOSTICIAN-DIRECTOR REGULATORY COMPLIANCE Work Phone: [facility] 08-27-2024 15:35-0400 Heart rate 80 /min Laisha Yaya VETERINARY LABORATORY DIAGNOSTICIAN-DIRECTOR REGULATORY COMPLIANCE Work Phone: [facility] 08-27-2024 15:35-0400 Systolic blood pressure 125 mm[Hg] Laisha Yaya VETERINARY LABORATORY DIAGNOSTICIAN-DIRECTOR REGULATORY COMPLIANCE Work Phone: [facility] 05-31-2024 13:50-0500 Body height 166.[address] Slade Duarte MD Work Phone: [facility] 05-31-2024 13:50-0500 Body mass index (BMI) [Ratio] 24.2 kg/m2 Dr. Slade Duarte MD Work Phone: [facility] 05-31-2024 13:50-0500 Body temperature 97.7 [degF] Dr. Slade Duarte MD Work Phone: [facility] 05-31-2024 13:50-0500 Body weight 67.[address] Slade Duarte MD Work Phone: [phone] [place] [address] 05-31-2024 13:50-0500 Diastolic blood pressure 82 mm[Hg] Dr. Slade Duarte MD Work Phone: [phone] [place] [address] 05-31-2024 13:50-0500 Heart rate 61 /min Dr. Slade Duarte MD Work Phone: [facility] 05-31-2024 13:50-0500 Respiratory rate 15 /min Dr. Slade Duarte MD Work Phone: [facility] 05-31-2024 13:50-0500 SaO2% (BldA) [Mass fraction] 100 % Dr. Slade Duarte MD Work Phone: [facility] 05-31-2024 13:50-0500 Systolic blood pressure 128 mm[Hg] Dr. Slade Duarte MD Work Phone: [facility] 05-21-2024 16:33-0500 Body height 165.1 cm Laisha Javier APRN-DIRECTOR REGULATORY COMPLIANCE Work Phone: [facility] 05-21-2024 16:33-0500 Body mass index (BMI) [Ratio] 28.09 kg/m2 Laisha Javier APRN-DIRECTOR REGULATORY COMPLIANCE Work Phone: [facility] 05-21-2024 16:33-0500 Body weight 76.57 kg Laisha Yaya VETERINARY LABORATORY DIAGNOSTICIAN-DIRECTOR REGULATORY COMPLIANCE Work Phone: [facility] 05-21-2024 16:33-0500 Diastolic blood pressure 81 mm[Hg] Laisha Javier VETERINARY LABORATORY DIAGNOSTICIAN-DIRECTOR REGULATORY COMPLIANCE Work Phone: [facility] 05-21-2024 16:33-0500 Heart rate 74 /min Laisha Javier VETERINARY LABORATORY DIAGNOSTICIAN-DIRECTOR REGULATORY COMPLIANCE Work Phone: [facility] 05-21-2024 16:33-0500 Systolic blood pressure 121 mm[Hg] Laisha Javier VETERINARY LABORATORY DIAGNOSTICIAN-DIRECTOR REGULATORY COMPLIANCE Work Phone: [facility] 05-04-2024 10:15-0500 Body height 167.6 cm Dimple Coyner VETERINARY LABORATORY DIAGNOSTICIAN.DIRECTOR REGULATORY COMPLIANCE Work Phone: [facility] 05-04-2024 10:15-0500 Body mass index (BMI) [Ratio] 23.73 kg/m2 Dimple Coyner VETERINARY LABORATORY DIAGNOSTICIAN.DIRECTOR REGULATORY COMPLIANCE Work Phone: [facility] 05-04-2024 10:15-0500 Body weight 66.68 kg Dimple Coyner VETERINARY LABORATORY DIAGNOSTICIAN.DIRECTOR REGULATORY COMPLIANCE Work Phone: [facility] 02-03-2024 13:46-0400 Diastolic blood pressure 74 mm[Hg] Lamin Thomae DO Work Phone: [facility] 02-03-2024 13:46-0400 Heart rate 72 /min Lamin Thomae DO Work Phone: [facility] 02-03-2024 13:46-0400 Respiratory rate 18 /min Lamin Thomae DO Work Phone: [facility] 02-03-2024 13:46-0400 SaO2% (BldA) [Mass fraction] 97 % Lamin Thomae DO Work Phone: [facility] 02-03-2024 13:46-0400 Systolic blood pressure 124 mm[Hg] Lamin Thomae DO Work Phone: [facility] 02-03-2024 12:02-0400 Body height 167.6 cm Lamin Redding DO Work Phone: [facility] 02-03-2024 12:02-0400 Body mass index (BMI) [Ratio] 22.81 kg/m2 Lamin Redding DO Work Phone: [facility] 02-03-2024 12:02-0400 Body temperature 97.39 [degF] Lamin Redding DO Work Phone: [facility] 02-03-2024 12:02-0400 Body weight 64.1 kg Lamin Redding DO Work Phone: [facility] 12-26-2023 10:41-0400 Body height 165.1 cm Andre lBancas DO Work Phone: [facility] 12-26-2023 10:41-0400 Body mass index (BMI) [Ratio] 24.13 kg/m2 Andre Blancas DO Work Phone: [facility] 12-26-2023 10:41-0400 Body temperature 97.7 [degF] Andre Blancas DO Work Phone: [facility] 12-26-2023 10:41-0400 Body weight 65.77 kg Andre Blancas DO Work Phone: [facility] 12-26-2023 10:41-0400 Diastolic blood pressure 102 mm[Hg] Anrde Blancas DO Work Phone: [facility] 12-26-2023 10:41-0400 Heart rate 78 /min Andre Blancas DO Work Phone: [facility] 12-26-2023 10:41-0400 Respiratory rate 17 /min Andre Blancas DO Work Phone: [facility] 12-26-2023 10:41-0400 SaO2% (BldA) [Mass fraction] 96 % Andre Blancas DO Work Phone: [facility] 12-26-2023 10:41-0400 Systolic blood pressure 152 mm[Hg] Andre Blancas DO Work Phone: [facility] 08-19-2023 13:37-0400 Body height 167.6 cm Dimple Coyner VETERINARY LABORATORY DIAGNOSTICIAN.DIRECTOR REGULATORY COMPLIANCE Work Phone: [facility] 08-19-2023 13:37-0400 Body weight 72.58 kg Dimple Coyner VETERINARY LABORATORY DIAGNOSTICIAN.DIRECTOR REGULATORY COMPLIANCE Work Phone: [facility] 07-24-2023 14:08-0400 Body temperature 98 [degF] [facility] 07-24-2023 14:08-0400 Body weight 75.52 kg [facility] 07-24-2023 14:08-0400 Diastolic blood pressure 99 mm[Hg] [facility] 07-24-2023 14:08-0400 Heart rate 93 /min [facility] 07-24-2023 14:08-0400 Respiratory rate 15 /min [facility] 07-24-2023 14:08-0400 SaO2% (BldA) [Mass fraction] 98 % [facility] 07-24-2023 14:08-0400 Systolic blood pressure 140 mm[Hg] [facility] 05-14-2022 14:57-0500 Body height 166.[address] Slade Duarte Work Phone: [facility] 05-14-2022 14:57-0500 Body mass index (BMI) [Ratio] 27.1 kg/m2 Dr. Slade Duarte Work Phone: [facility] 05-14-2022 14:57-0500 Body temperature 98 [degF] Dr. Slade Duarte Work Phone: [facility] 05-14-2022 14:57-0500 Body weight 75.[address] Slade Duarte Work Phone: [facility] 05-14-2022 14:57-0500 Diastolic blood pressure 80 mm[Hg] Dr. Slade Duarte Work Phone: [facility] 05-14-2022 14:57-0500 Heart rate 93 /min Dr. Slade Duarte Work Phone: [facility] 05-14-2022 14:57-0500 Respiratory rate 16 /min Dr. Slade Duarte Work Phone: [facility] 05-14-2022 14:57-0500 SaO2% (BldA) [Mass fraction] 97 % Dr. Slade Duarte Work Phone: [facility] 05-14-2022 14:57-0500 Systolic blood pressure 130 mm[Hg] Dr. Slade Duarte Work Phone: [facility] 12-24-2021 11:29-0400 Body height 166.[address] Slade Duarte Work Phone: [facility] Work Phone: 12-24-2021 11:29-0400 Body mass index (BMI) [Ratio] 26.9 kg/m2 Dr. Slade Duarte Work Phone: [facility] Work Phone: 12-24-2021 11:29-0400 Body temperature 98.2 [degF] Dr. Slade Duarte Work Phone: [facility] Work Phone: 12-24-2021 11:29-0400 Body weight 74.[address] Slade Duarte Work Phone: [facility] Work Phone: 12-24-2021 11:29-0400 Diastolic blood pressure 98 mm[Hg] Dr. Slade Duarte Work Phone: [facility] Work Phone: 12-24-2021 11:29-0400 Heart rate 96 /min Dr. Slade Duarte Work Phone: [facility] Work Phone: 12-24-2021 11:29-0400 Respiratory rate 16 /min Dr. Slade Duarte Work Phone: [facility] Work Phone: 12-24-2021 11:29-0400 SaO2% (BldA) [Mass fraction] 98 % Dr. Slade Duarte Work Phone: [facility] Work Phone: 12-24-2021 11:29-0400 Systolic blood pressure 144 mm[Hg] Dr. Slade Duarte Work Phone: [facility] Work Phone: 09-20-2021 15:56-0400 Body temperature 98.2 [degF] Dr. Slade Duarte Work Phone: [facility] Work Phone: 09-20-2021 15:56-0400 Diastolic blood pressure 84 mm[Hg] Dr. Slade Duarte Work Phone: [facility] Work Phone: 09-20-2021 15:56-0400 Heart rate 88 /min Dr. Slade Duarte Work Phone: [facility] Work Phone: 09-20-2021 15:56-0400 Respiratory rate 16 /min Dr. Slade Duarte Work Phone: [facility] Work Phone: 09-20-2021 15:56-0400 SaO2% (BldA) [Mass fraction] 96 % Dr. Slade Duarte Work Phone: [facility] Work Phone: 09-20-2021 15:56-0400 Systolic blood pressure 120 mm[Hg] Dr. Slade Duarte Work Phone: [facility] Work Phone: 09-20-2021 15:56-0400 Body height 166.[address] Slade Duarte Work Phone: [facility] Work Phone: 09-20-2021 15:56-0400 Body temperature 98.2 [degF] Dr. Slade Duarte Work Phone: [facility] Work Phone: 09-20-2021 15:56-0400 Diastolic blood pressure 84 mm[Hg] Dr. Slade Duarte Work Phone: [facility] Work Phone: 09-20-2021 15:56-0400 Heart rate 88 /min Dr. Slade Duarte Work Phone: [facility] Work Phone: 09-20-2021 15:56-0400 Respiratory rate 16 /min Dr. Slade Duarte Work Phone: [facility] Work Phone: 09-20-2021 15:56-0400 SaO2% (BldA) [Mass fraction] 96 % Dr. Slade Duarte Work Phone: [facility] Work Phone: 09-20-2021 15:56-0400 Systolic blood pressure 120 mm[Hg] Dr. Slade Duarte Work Phone: [facility] Work Phone: 06-25-2021 14:31-0500 Diastolic blood pressure 88 mm[Hg] Dr. Slade Duarte Work Phone: [facility] Work Phone: 06-25-2021 14:31-0500 Heart rate 76 /min Dr. Slade Duarte Work Phone: [facility] Work Phone: 06-25-2021 14:31-0500 SaO2% (BldA) [Mass fraction] 99 % Dr. Slade Duarte Work Phone: [facility] Work Phone: 06-25-2021 14:31-0500 Systolic blood pressure 136 mm[Hg] Dr. Slade Duarte Work Phone: [facility] Work Phone: Encounters Encounter Date Encounter Type Care Provider Facility Start: 11-23-2024 End: 11-23-2024 Office outpatient visit 25 minutes Dimple Salazar VETERINARY LABORATORY DIAGNOSTICIAN.DIRECTOR REGULATORY COMPLIANCE Work Phone: Urology Comment on above: OAB (overactive blad nael) (Primary Dx); Multiple sclerosis (HCC) Start: 11-23-2024 End: 11-23-2024 ambulatory DIMPLE SALAZAR Facility:[facility] Start: 10-29-2024 End: 10-29-2024 Patient encounter procedure Dorothy DE LA GARZA -[facility] Work Phone: Start: 10-29-2024 End: 10-29-[address] Slade Duarte MD Work Phone: [facility] Work Phone: Start: 10-29-2024 End: 10-29-2024 ambulatory [facility] Facility:[facility] Start: 09-27-2024 Non-patient / Non-visit Dr. Ed bond MD -[facility] Start: 09-27-2024 End: 09-27-[address] Slade Duarte MD Work Phone: [facility] Work Phone: Start: 09-27-2024 End: 09-27-[address] Slade Duarte MD -[facility] Work Phone: Start: 09-27-2024 End: 09-27-2024 ambulatory Slade Duarte Facility:[facility] Start: 09-13-2024 End: 09-13-2024 ambulatory Out of Town Doctor [facility] Work Phone: Start: 09-13-2024 End: 09-13-2024 Patient encounter procedure Slade Duarte MD -[facility] Start: 09-13-2024 End: 09-13-[address] Slade Duarte MD -[facility] Work Phone: Start: 09-13-2024 End: 09-13-2024 ambulatory Slade Duarte Facility:[facility] Start: 09-13-2024 End: 09-13-2024 ambulatory Laisha Javier Facility:[facility] Start: 08-30-2024 End: 08-30-2024 Subsequent hospital visit by physician [facility] Comment on above: Syncope, unspecified syncope type Start: 08-30-2024 End: 08-30-2024 ambulatory [facility] Start: 08-27-2024 End: 08-27-2024 ambulatory [facility] Ambulatory Start: 08-27-2024 End: 08-27-2024 Office outpatient visit 15 minutes Laisha Javier VETERINARY LABORATORY DIAGNOSTICIAN-DIRECTOR REGULATORY COMPLIANCE Work Phone: [facility] Comment on above: Hyponatremia (Primar y Dx); Hemiparesis, left (Multi); Syncope, unspecified syncope type Start: 07-02-2024 End: 07-02-[address] Slade Duarte MD Work Phone: [facility] Work Phone: Start: 07-02-2024 End: 07-02-[address] Slade Duarte MD -[facility] Work Phone: Start: 07-02-2024 End: 07-02-2024 ambulatory Slade Duarte Facility:[facility] Start: 05-31-2024 End: 05-31-[address] Slade Duarte MD -[facility] Work Phone: Start: 05-31-2024 End: 05-31-2024 ambulatory Slade Duarte Facility:[facility] Start: 05-21-2024 End: 05-21-2024 Office outpatient new 30 minutes Laisha Javier VETERINARY LABORATORY DIAGNOSTICIAN-DIRECTOR REGULATORY COMPLIANCE Work Phone: [facility] Comment on above: MS (multiple scleros is) (Multi) (Primary Dx); Persistent depressive disorder; Osteopenia, unspecified location Start: 05-21-2024 End: 05-21-2024 ambulatory [facility] Ambulatory Start: 05-04-2024 End: 05-04-2024 ambulatory DIMPLE SALAZAR Facility:[facility] Start: 05-04-2024 End: 05-04-2024 Office outpatient visit 25 minutes Dimple Salazar VETERINARY LABORATORY DIAGNOSTICIAN.DIRECTOR REGULATORY COMPLIANCE Work Phone: Urology Comment on above: OAB (overactive blad nael) (Primary Dx); Screening for genitourinary condition; Multiple sclerosis (HCC); Urge incontinence Start: 04-19-2024 End: 04-19-[address] Slade Duarte MD -[facility] Work Phone: Start: 04-19-2024 End: 04-19-2024 ambulatory Slade Duarte Facility:[facility] Start: 04-15-2024 End: 04-15-2024 ambulatory Yolanda Shaw RN [facility] Start: 04-15-2024 End: 04-15-2024 Patient encounter procedure Yolanda Shaw RN [facility] Start: 04-12-2024 End: 04-12-2024 ambulatory Sonal Anne RN [facility] Start: 04-12-2024 End: 04-12-2024 Patient encounter procedure Sonal Anne RN [facility] Start: 03-29-2024 End: 03-29-2024 Telephone encounter Agustina Stacy MD Work Phone: [facility] Clinical Communication Comment on above: Lab Orders Start: 03-27-2024 End: 03-27-2024 ambulatory AGUSTINA STACY [facility] Start: 03-22-2024 End: 03-22-2024 Telephone encounter Dimple Salazar VETERINARY LABORATORY DIAGNOSTICIAN.DIRECTOR REGULATORY COMPLIANCE Work Phone: Urology Comment on above: Follow up appt Start: 02-17-2024 End: 02-17-2024 ambulatory [facility] Start: 02-17-2024 End: 02-17-2024 Subsequent hospital visit by physician Riley [id number] Dxa [facility] Comment on above: Age-related osteopor osis without current pathological fracture Encounter for screen ing mammogram for malignant neoplasm of breast Start: 02-03-2024 End: 02-03-2024 Subsequent hospital visit by physician Lamin Redding DO Work Phone: [facility] Comment on above: Colon cancer screeni ng; History of colon polyps Start: 02-03-2024 End: 02-03-2024 ambulatory LAMIN REDDING [facility] Start: 01-20-2024 End: 01-20-2024 Refill Dimple Salazar APRN.DIRECTOR REGULATORY COMPLIANCE Work Phone: Urology Start: 12-26-2023 End: 12-26-2023 Emergency department patient visit Andre Mackenzie Aram DO Work Phone: Health system Emergency Medicine Comment on above: TMJ dysfunction (Shy natan Dx) Start: 12-02-2023 End: 12-02-2023 ambulatory [facility] Town Doctor Facility[place] [place] Start: 12-02-2023 End: 12-02-2023 ambulatory [facility] Facility:[facility] Start: 09-30-2023 End: 09-30-2023 ambulatory [facility] Start: 08-19-2023 End: 08-19-2023 Patient encounter procedure Dimple Salazar VETERINARY LABORATORY DIAGNOSTICIAN.DIRECTOR REGULATORY COMPLIANCE Work Phone: Urology Comment on above: OAB (overactive blad nael) (Primary Dx); Urge incontinence; Multiple sclerosis (HCC) Start: 08-07-2023 End: 08-07-2023 [facility] Work Phone: Start: 08-07-2023 End: 08-07-[address] [facility] Work Phone: Start: 07-31-2023 Telephone encounter Agustina lamar MD Work Phone: NOC Comment on above: Follow Up (F/U - att empt made. No answer) Follow Up (All Clear ) Start: 07-26-2023 End: 07-28-2023 Evaluation and management of inpatient SANTIAGO BOOKER Facility:[facility] Start: 07-26-2023 End: 07-26-2023 Emergency department patient visit AGUSTINA STACY Facility:[facility] Start: 07-24-2023 End: 07-24-2023 Patient encounter procedure AGUSTINA STACY [facility] Work Phone: Start: 05-24-2023 End: 05-24-2023 ambulatory [facility] Start: 02-24-2023 End: 02-24-2023 ambulatory [facility] Work Phone: Start: 02-24-2023 End: 02-24-2023 Patient encounter procedure [facility], [facility] Work Phone: Start: 01-06-2023 Patient encounter procedure Tyra Wallace Work Phone: [facility] Work Phone: Start: 08-20-[address] Slade Duarte Facility:[id number] Start: 08-20-2022 Patient encounter procedure Tyra Wallace Work Phone: [facility] Work Phone: Start: 08-13-[address] Slade Duarte Facility:[id number] Start: 08-13-2022 Patient encounter procedure Tyra Wallace Work Phone: [facility] Work Phone: Start: 08-06-2022 Patient encounter procedure Tyra Wallace Work Phone: [facility] Work Phone: Start: 08-06-[address] Slade Duarte Facility:[id number] Start: 07-30-[address] Slade Duarte Facility:[id number] Start: 07-30-2022 Patient encounter procedure Tyrayahaira Murphyk Work Phone: [facility] Work Phone: Start: 07-23-2022 Patient encounter procedure Tyrayahaira Tuckeriak Work Phone: [facility] Work Phone: Start: 07-23-2022 PTFUADULT4, Provider : Monik Mar, Status: Pen, Time: 4:00 PM Tyra Tuckeriak Work Phone: [facility] Work Phone: Start: 07-23-[address] Slade Duarte Facility:[id number] Start: 07-18-2022 Patient encounter procedure Tyrayahaira Wallace Work Phone: [facility] Work Phone: Start: 07-18-[address] Slade Duarte Facility:[id number] Start: 07-01-2022 Patient encounter procedure Tyrayahaira Tuckeriak Work Phone: [facility] Work Phone: Start: 06-25-2022 Patient encounter procedure Tyrayahaira Tuckeriak Work Phone: [facility] Work Phone: Start: 06-25-[address] Slade Duarte Facility:[id number] Start: 06-22-2022 End: 06-22-[address] Slade Duarte Work Phone: [facility] Work Phone: Start: 06-22-2022 End: 06-22-[address] Slade Duarte Work Phone: [facility] Start: 05-14-2022 End: 05-14-[address] Slade Duarte Work Phone: [facility] Start: 05-01-[address] Slade Duarte Facility:[id number] Start: 04-24-2022 Patient encounter procedure Tyra M Perciak Work Phone: [facility] Work Phone: Start: 04-17-2022 Patient encounter procedure Tyra M Perciak Work Phone: [facility] Work Phone: Start: 04-17-[address] Slade Duarte Facility:[id number] Start: 03-28-[address] Slade Duarte Facility:[id number] Start: 03-28-2022 Patient encounter procedure Tyra Carolyn Tuckeriak Work Phone: [facility] Work Phone: Start: 03-21-[address] Slade Duarte Facility:[id number] Start: 03-11-2022 Patient encounter procedure Tyra Carolyn Tuckeriak Work Phone: [facility] Work Phone: Start: 03-05-[address] Slade Duarte Facility:[id number] Start: 03-05-2022 Patient encounter procedure Tyra M Perciak Work Phone: [facility] Work Phone: Start: 02-27-[address] Slade Duarte Facility:[id number] Start: 02-27-2022 Patient encounter procedure Tyra M Perciak Work Phone: [facility] Work Phone: Start: 02-19-[address] Slade Duarte Facility:[id number] Start: 02-19-2022 Patient encounter procedure Tyra Wallace Work Phone: [facility] Work Phone: Start: 02-14-2022 Patient encounter procedure Tyra Wlalace Work Phone: [facility] Work Phone: Start: 02-14-[address] Slade Duarte Facility:[id number] Start: 02-01-2022 Patient encounter procedure Tyra Wallace Work Phone: [facility] Work Phone: Start: 02-01-[address] Slade Duarte Facility:[id number] Start: 01-22-[address] Slade Duarte Facility:[id number] Start: 01-22-2022 Patient encounter procedure Tyra Wallace Work Phone: [facility] Work Phone: Start: 01-17-2022 End: 01-17-[address] [facility] Work Phone: Start: 01-17-2022 End: 01-17-[address] [facility] Start: 01-04-2022 Patient encounter procedure Tyra Wallace Work Phone: [facility] Work Phone: Start: 01-04-[address] Slade Duarte Facility:[id number] Start: 12-24-2021 End: 12-24-[address] Slade Duarte Work Phone: [facility] Start: 12-24-2021 End: 12-24-[address] Slade Duarte Work Phone: [facility] Start: 12-10-[address] Agustina Montes litlibia:[id number] Start: 10-11-2021 End: 10-11-[address] Slade Duarte Work Phone: [facility] Start: 09-20-2021 End: 09-20-[address] Slade Duarte Work Phone: [facility] Start: 09-20-2021 End: 09-20-[address] Slade Duarte Work Phone: [facility] Start: 08-23-2021 End: 08-23-[address] Slade Duarte Work Phone: [facility] Start: 06-25-2021 End: 06-25-[address] Slade Duarte Work Phone: [facility] Procedures Date Procedure Procedure Detail Performing Clinician Start: 10-29-2024 Antibody to centrome re measurement No Primary Care Physician Comment on above: Previous reported re sult: TNP AIEdited by: DARA on 11/01/24:1409 AMENDED REPORT 11/01/24 1409 ANTI-CENT B previously reported as: Test not performed Start: 10-29-2024 Antibody to extracta ble nuclear antigen measurement No Primary Care Physician Comment on above: Previous reported re sult: TNP AIEdited by: DARA on 11/01/24:1409 AMENDED REPORT 11/01/24 1409 TEJEDA Ab previously reported as: Test not performed Start: 10-29-2024 Antibody to JOSE-1 measurement No Primary Care Physician Comment on above: Previous reported re sult: TNP AIEdited by: DARA on 11/01/24:1409 AMENDED REPORT 11/01/24 1409 ANTI-JOSE previously reported as: Test not performed Start: 10-29-2024 Antibody to lupus La protein measurement No Primary Care Physician Start: 10-29-2024 Antibody to SS-A measurement No Primary Care Physician Start: 10-29-2024 Autoantibody measurement No Primary Care Physician Comment on above: Previous reported re sult: TNP AIEdited by: DARA on 11/01/24:1409 AMENDED REPORT 11/01/24 140 ANTICHROMATIN previously reported as: Test not performed Start: 10-29-2024 C>3< complement assay N o Primary Care Physician Start: 10-29-2024 Hemolytic complement CH50 level No Primary Care Physician Comment on above: Age Male Female 1 - 30 days Not Estab. Not Estab. 31 days - 6 months >32 >20 7 months - 17 years >39 >39 >17 years >41 >41 NOTE: The adult (>17 years) reference interval range is used to flag abnormals on this report. If the patient is 17 years old or younger, use the table above to determine out of range values. Start: 10-29-2024 Laboratory data interpretation No Primary Care Physician Comment on above: No lupus anticoagula nt was detected. The dPT was extendedbut the dPT confirmatory ratio was normal. This is consistentwith a deficiency or specific inhibition of one or more extrinsicpathway factors (VII, X, V, II or fibrinogen). Start: 10-29-2024 Lupus anticoagulant assay, platelet neutralization method No Primary Care Physician Start: 10-29-2024 Lupus anticoagulant screening test No Primary Care Physician Start: 10-29-2024 Prothrombin time No [facility] Care Physician Start: 10-29-2024 INTERVENTION SPECIALIST antibody measurement No Primary Care Physician Comment on above: Previous reported re sult: TNP AIEdited by: DARA on 11/01/24:1409 AMENDED REPORT 11/01/241408 INTERVENTION SPECIALIST Ab previously reported as: Test not performed Start: 10-29-2024 Serum IgM anticardio lipin measurement No Primary Care Physician Comment on above: Negative: <13 Indete rminate: 13 - 20 Low-Med Positive: >20 - 80 High Positive: >80 Start: 07-02-2024 MRI of cervical spin e with contrast Dr. Slade Duarte MD Work Phone: Start: 07-02-2024 MRI of thoracic spin e with contrast Dr. Slade Duarte MD Work Phone: Start: 05-04-2024 Urnls dip stick/tabl et rgnt auto w/o microscopy Dimple J Coyner VETERINARY LABORATORY DIAGNOSTICIAN.DIRECTOR REGULATORY COMPLIANCE Work Phone: Start: 04-19-2024 MRI of brain with contrast Dr. Slade Duarte MD Work Phone: Start: 02-17-2024 End: 02-17-2024 Mammography Agustina Stacy MD Work Phone: Start: 02-03-2024 Colsc flx w/rmvl of tumor polyp lesion snare tq Lamin R Thomae DO Work Phone: Start: 02-03-2024 PULSE OXIMETRY, SPOT Da le R Thomae DO Work Phone: Start: 02-03-2024 Colonoscopy Lamin Ashley e DO Work Phone: Start: 08-19-2023 Urnls dip stick/tabl et rgnt auto w/o microscopy Dimple J Coyner VETERINARY LABORATORY DIAGNOSTICIAN.DIRECTOR REGULATORY COMPLIANCE Work Phone: Start: 08-07-2023 MRI of brain with contrast AGUSITNA STACY Start: 05-24-2023 CBC W Auto Different ial panel - Blood AGUSTINA STACY Start: 05-24-2023 Comprehensive metabo lic 2000 panel - Serum or Plasma AGUSTINA STACY Start: 05-24-2023 Ferritin [Mass/volum e] in Serum or Plasma AGUSTINA STACY Start: 05-24-2023 Iron [Mass/volume] i n Serum or Plasma AGUSTINA STACY Start: 02-24-2023 CT of thoracic spine with contrast Start: 01-20-2023 Mammography Andre quiñones DO Work Phone: Start: 01-17-2022 MRI of cervical spin e with contrast AGUSTINA STACY Start: 09-08-2022 MRI of brain with contrast AGUSTINA STACY Start: 02-20-2021 Colonoscopy Agustina lamar MD Work Phone: Start: 02-07-2021 Lipid 1996 panel - S adele or Plasma Agustina Stacy MD Work Phone: Start: 05-10-2008 Mammography Sonal mendenhall RN Fiberoptic colonoscopy Brendan Wallace Work Phone: H/O: hysterectomy S/P hysterectomy Agustina Stacy MD Work Phone: Hysterectomy Tyra shankar Work Phone: Plan of Treatment Date Care Activity Detail Author Start: 10-21-2038 RSV High Risk: (Elde rly (60+) or Population) (1 - 1-dose 75+ series) RSV High Risk: (Elderly (60+) or Population) (1 - 1-dose 75+ series) [facility] Start: 10-21-2038 RSV Immunization for Adults (1 - 1-dose 75+ series) RSV Immunization for Adults (1 - 1-dose 75+ series) [facility] Start: 10-21-2038 RSV Vaccine (1 - 1-d ose 75+ series) RSV Vaccine (1 - 1-dose 75+ series) [facility] Start: 10-31-2027 Diabetes Screening Diabetes Screenin [facility] Start: 03-27-2027 Diabetes Screening Diabetes Screenin [facility] Start: 02-02-2027 Screening for malign ant neoplasm of colon [facility] Start: 07-27-2026 Diabetes Screening Diabetes Screenin g [facility] Start: 02-16-2026 Screening for osteoporosis Bone Density Scan [facility] Start: 02-07-[address] [facility] Start: 11-25-2025 End: 11-25-2025 Follow-up encounter 11/25/2025 10:00 AM EDT [facility] [address] [address] Dimple Salazar, VETERINARY LABORATORY DIAGNOSTICIAN.DIRECTOR REGULATORY COMPLIANCE [address] [place] [address] 1 yr follow up Urology Comment on above: 1 yr follow up Start: 03-02-2025 End: 03-02-2025 Patient encounter procedure 03/02/2025 5:10 PM EDT Office Visit [facility] [address] [place] [address] Laisha Javier, VETERINARY LABORATORY DIAGNOSTICIAN-DIRECTOR REGULATORY COMPLIANCE [address] [facility], [address] [place] [address] [facility] Start: 02-16-2025 Screening for malign ant neoplasm of breast [facility] Start: 01-20-2025 Screening for osteoporosis Bone Density Scan [facility] Start: 01-10-2025 Influenza vaccination [facility] Start: 11-02-2024 End: 11-02-2024 Patient encounter procedure 11/02/2024 4:00 PM EDT Office Visit Urology [address] [address] Dimple Salazar, VETERINARY LABORATORY DIAGNOSTICIAN.DIRECTOR REGULATORY COMPLIANCE [address] [place] [address] for OAB Urology Comment on above: for OAB Start: 10-29-2024 Cardiolipin IgA and IgG and IgM panel - Serum [facility] Start: 10-29-2024 Complement C3 [Mass/volume] in Serum or Plasma [facility] Start: 10-29-2024 Complement C4 [Mass/volume] in Serum or Plasma [facility] Start: 10-29-2024 Complement total hemolytic CH50 [Units/volume] in Serum or Plasma [facility] Start: 10-29-2024 Lupus anticoagulant assay [facility] Start: 10-29-2024 Protein C [Units/vol ume] in Platelet poor plasma by Coagulation assay [facility] Start: 10-29-2024 Protein C actual/nor mal in Platelet poor plasma by Chromogenic method [facility] Start: 10-29-2024 Protein S assay [facility] Start: 10-29-2024 Protein S function estimate [facility] Start: 09-13-2024 Measurement of substance [facility] Start: 08-27-2024 End: 08-27-2025 Basic metabolic 2000 panel - Serum or Plasma Basic Metabolic Panel Lab Routine Hyponatremia Expected: 08/27/2024 (Approximate), Expires: 08/27/2025 [facility] Service Area Work Phone: Comment on above: Expected: 08/27/2024 (Approximate), Expires: 08/27/2025 Start: 08-27-2024 End: 08-27-2025 Holter monitor study Holter or Event Compliance Vice President Cardiac Services Routine Syncope, unspecified syncope type Expected: 08/27/2024, Expires: 08/27/2025 [facility] Work Phone: Comment on above: Expected: 08/27/2024 , Expires: 08/27/2025 Start: 04-14-2024 End: 04-14-2024 Patient encounter procedure 04/14/2024 1:20 PM EST Office Visit Urology [address] [address] Dimple Salazar, VETERINARY LABORATORY DIAGNOSTICIAN.DIRECTOR REGULATORY COMPLIANCE [address] [place] [address] follow up medication, female exam Urology Comment on above: follow up medication , female exam Start: 02-21-2024 Screening for malign ant neoplasm of colon [facility] Start: 02-17-2024 End: 02-17-2024 Patient encounter procedure [facility] Start: 01-23-2024 End: 01-23-2024 Patient encounter procedure [facility] Start: 01-21-2024 Screening for malign ant neoplasm of breast [facility] Start: 01-11-2024 Covid-19 Vaccine () Covid-19 Vaccine () [facility] Start: 01-11-2024 Covid-19 Vaccine ( season) Covid-19 Vaccine ( season) [facility] Start: 01-11-2024 Influenza vaccination [facility] Start: 01-02-2024 End: 01-02-2024 Patient encounter procedure 01/02/2024 8:40 AM EDT Appointment [facility] [address] [place] [phone] Lamin Redding DO [address] [facility], [address] [place] [address] [facility] Start: 2023 RSV patient s and/or patients aged 60+ years (1 - 1-dose 60+ series) RSV patients and/or patients aged 60+ years (1 - 1-dose 60+ series) [facility] Start: 2023 RSV Vaccine (1 - 1-d ose 60+ series) RSV Vaccine (1 - 1-dose 60+ series) [facility] Start: 2023 RSV Vaccine (1 - Ris k 60-74 years 1-dose series) RSV Vaccine (1 - Risk 60-74 years 1-dose series) [facility] Start: 01-10-2023 Covid-19 Vaccine (2022- season) Covid-19 Vaccine (2022- season) [facility] Start: 01-10-2023 Influenza vaccination Influenza Vacc ine (#1) [facility] Start: 09-03-2022 MILI, Provider : Monik Mar, Status: Max, Time: 4:00 PM MILI, Provider: Monik Mar, Status: Max, Time: 4:00 PM [facility] Work Phone: Start: 08-27-2022 OTRECVINCENT, Provider : Maranda Genao, Status: Pen, Time: 3:15 PM CHANTAL, Provider: Maranda Genao, Status: Max, Time: 3:15 PM [facility] Work Phone: Start: 08-20-2022 [email or web address], Provider : Monik Mar, Status: Max, Time: 4:00 PM PTFUADULT4, Provider: Monik Mar, Status: Pen, Time: 4:00 PM [facility] Work Phone: Start: 08-13-2022 OTFUADULT4, Provider : Maranda Genao, Status: Pen, Time: 3:15 PM OTFUADULT4, Provider: Maranda Genao, Status: Pen, Time: 3:15 PM [facility] Work Phone: Start: 08-06-2022 PTFUADULT4, Provider : Monik Mar, Status: Pen, Time: 4:00 PM PTFUADULT4, Provider: Monik Mar, Status: Pen, Time: 4:00 PM [facility] Work Phone: Start: 07-30-2022 OTFUADULT4, Provider : Maranda Genao, Status: Pen, Time: 3:15 PM OTFUADULT4, Provider: Maranda Genao, Status: Pen, Time: 3:15 PM [facility] Work Phone: Start: 07-23-2022 PTFUADULT4, Provider : Monik Mar, Status: Pen, Time: 4:00 PM PTFUADULT4, Provider: Monik Mar, Status: Pen, Time: 4:00 PM [facility] Work Phone: Start: 07-18-2022 [id number], Provider : Maranda Genao, Status: Pen, Time: 3:30 PM [id number], Provider: Maranda Genao, Status: Pen, Time: 3:30 PM [facility] Work Phone: Start: 07-09-2022 PTFUADULT4, Provider : Monik Mar, Status: Pen, Time: 4:00 PM PTFUADULT4, Provider: Monik Mar, Status: Pen, Time: 4:00 PM [facility] Work Phone: Start: 07-07-2022 DTaP/Tdap/Td Vaccine s (2 - Td or Tdap) DTaP/Tdap/Td Vaccines (2 - Td or Tdap) [facility] Start: 07-07-2022 Urine microalbumin profile DTaP,Tdap,Td Vaccine (2 - Td or Tdap) [facility] Start: 05-09-2022 OTFUADULT4, Provider : Maranda Genao, Status: Pen, Time: 4:30 PM OTFUADULT4, Provider: Maranda Genao, Status: Pen, Time: 4:30 PM [facility] Work Phone: Start: 05-09-2022 PTFUADULT4, Provider : Aracelis Mg, Status: Pen, Time: 3:30 PM PTFUADULT4, Provider: Aracelis Mg, Status: Pen, Time: 3:30 PM [facility] Work Phone: Start: 05-01-2022 PTFUADULT4, Provider : Kady Ventura, Status: Pen, Time: 4:15 PM PTFUADULT4, Provider: Kady Ventura, Status: Pen, Time: 4:15 PM [facility] Work Phone: Start: 05-01-2022 OTFUADULT4, Provider : Johanny Ahn, Status: Pen, Time: 3:30 PM OTFUADULT4, Provider: Johanny Ahn, Status: Pen, Time: 3:30 PM [facility] Work Phone: Start: 04-24-2022 OTFUADULT4, Provider : Johanny Ahn, Status: Pen, Time: 3:15 PM OTFUADULT4, Provider: Johanny Ahn, Status: Pen, Time: 3:15 PM [facility] Work Phone: Start: 04-24-2022 PTFUADULT4, Provider : Yi Mcdaniel, Status: Pen, Time: 2:30 PM PTFUADULT4, Provider: Yi Mcdaniel, Status: Pen, Time: 2:30 PM [facility] Work Phone: Start: 03-28-2022 OTRECHECKA, Provider : Maranda Genao, Status: Pen, Time: 4:30 PM OTRECHECKA, Provider: Maranda Genao, Status: Pen, Time: 4:30 PM [facility] Work Phone: Start: 03-28-2022 PTRECHECKA, Provider : Monik Mar, Status: Pen, Time: 3:45 PM PTRECHECKA, Provider: Monik Mar, Status: Pen, Time: 3:45 PM [facility] Work Phone: Start: 03-21-2022 OTFUADULT4, Provider : Maranda Genao, Status: Pen, Time: 4:00 PM OTFUADULT4, Provider: Maranda Genao, Status: Pen, Time: 4:00 PM [facility] Work Phone: Start: 03-21-2022 PTFUADULT4, Provider : Monik Mar, Status: Pen, Time: 3:15 PM PTFUADULT4, Provider: Monik Mar, Status: Pen, Time: 3:15 PM [facility] Work Phone: Start: 03-15-2022 Screening for malign ant neoplasm of cervix [facility] Start: 03-11-2022 OTFUADULT4, Provider : Johanny Ahn, Status: Pen, Time: 5:00 PM OTFUADULT4, Provider: Johanny Ahn, Status: Pen, Time: 5:00 PM [facility] Work Phone: Start: 03-11-2022 PTRECHADUL, Provider : Monik Mar, Status: Pen, Time: 4:15 PM PTRECHADUL, Provider: Monik Mar, Status: Pen, Time: 4:15 PM [facility] Work Phone: Start: 03-07-2022 OTFUADULT4, Provider : Johanny Ahn, Status: Pen, Time: 5:00 PM OTFUADULT4, Provider: Johanny Ahn, Status: Pen, Time: 5:00 PM Rehab [facility] Work Phone: Start: 03-07-2022 PTRECHADUL, Provider : Monik Mar, Status: Pen, Time: 4:15 PM PTRECHADUL, Provider: Monik Mar, Status: Pen, Time: 4:15 PM [facility] Work Phone: Start: 03-05-2022 OTFUADULT4, Provider : Maranda Genao, Status: Pen, Time: 5:15 PM OTFUADULT4, Provider: Maranda Genao, Status: Pen, Time: 5:15 PM [facility] Work Phone: Start: 03-05-2022 PTRECHADUL, Provider : Monik Mar, Status: Pen, Time: 4:15 PM PTRECHADUL, Provider: Monik Mar, Status: Pen, Time: 4:15 PM Rehab [facility] Work Phone: Start: 02-27-2022 PTFUADULT4, Provider : Charity Chapman, Status: Pen, Time: 5:00 PM PTFUADULT4, Provider: Charity Chapman, Status: Pen, Time: 5:00 PM [facility] Start: 02-27-2022 OTFUADULT4, Provider : Maranda Genao, Status: Pen, Time: 4:15 PM OTFUADULT4, Provider: Maranda Genao, Status: Pen, Time: 4:15 PM [facility]: Start: 02-19-2022 OTEVALADUL, Provider : Maranda Genao, Status: Pen, Time: 5:15 PM OTEVALADUL, Provider: Maranda Genao, Status: Pen, Time: 5:15 PM [facility] Work Phone: Start: 02-19-2022 PTFUADULT4, Provider : Dorothy Aguayo, Status: Pen, Time: 4:30 PM PTFUADULT4, Provider: Dorothy Aguayo, Status: Pen, Time: 4:30 PM [facility] Work Phone: Start: 02-01-2022 PTRECHADUL, Provider : Monik Mar, Status: Pen, Time: 4:15 PM PTRECHADUL, Provider: Monik Mar, Status: Pen, Time: 4:15 PM [facility] Work Phone: Start: 01-29-2022 PTFUADULT4, Provider : Aracelis Mg, Status: Pen, Time: 4:15 PM PTFUADULT4, Provider: Aracelis Mg, Status: Pen, Time: 4:15 PM [facility]: Start: 01-25-2022 PTFUADULT4, Provider : Ratna Abel, Status: Pen, Time: 3:45 PM PTFUADULT4, Provider: Ratna Abel, Status: Pen, Time: 3:45 PM [facility]: Start: 01-22-2022 PTFUADULT4, Provider : Aracelis Mg, Status: Pen, Time: 4:15 PM PTFUADULT4, Provider: Aracelis Mg, Status: Pen, Time: 4:15 PM [facility] Work Phone: Start: 01-17-2022 PTFUADULT4, Provider : Monik Mar, Status: Pen, Time: 4:00 PM PTFUADULT4, Provider: Monik Mar, Status: Pen, Time: 4:00 PM [facility]: Start: 01-10-2022 PTFUADULT4, Provider : Walker,Helena, Status: Pen, Time: 10:45 AM PTFUADULT4, Provider: Helena Mills, Status: Pen, Time: 10:45 AM [facility] Work Phone: Start: 12-24-2021 Patient referral [facility] Work Phone: Start: 10-21-2013 Pneumococcal vaccination Pneum ococcal Vaccine (1 of 1 - PCV) [facility] Start: 10-21-2013 Pneumococcal Vaccine : 50+ (1 of 1 - PCV) Pneumococcal Vaccine: 50+ (1 of 1 - PCV) [facility] Start: 10-21-2013 Shingrix Vaccine (1 of 2) Shingrix Vaccine (1 of 2) [facility] Start: 10-21-2013 Zoster Vaccines (1 of 2) Zoste r Vaccines (1 of 2) [facility] Start: 05-10-2009 Screening for malign ant neoplasm of breast Mammogram [facility] Start: 10-21-2008 Screening for malign ant neoplasm of colon [facility] Start: 2003 Screening for malign ant neoplasm of breast Mammogram [facility] Start: 10-21-1993 Screening for malign ant neoplasm of cervix [facility] Start: 10-21-1984 Screening for malign ant neoplasm of cervix [facility] Start: 10-21-1981 Diabetes mellitus screening Diabetes Screening [facility] Start: 10-21-1981 Hepatitis C screening Hepatitis C Sc [facility] Start: 10-21-1981 HIV screening HIV Screening [facility] Start: 1975 Depression Monitoring Depression [facility] Start: 10-21-1969 Pneumococcal vaccination Pneum ococcal Vaccine (1 of 2 - PCV) [facility] Start: 10-21-1964 MMR Vaccines (1 of 1 - Standard series) MMR Vaccines (1 of 1 - Standard series) [facility] Start: 1963 HIV screening HIV Screening [facility] Start: 1963 Screening for malign ant neoplasm of colon [facility] Start: 1963 Yearly Adult Physical Yearly Adult P hysical [facility] BLADDER SCAN BLADDER SCAN Pro cedures Routine OAB (overactive bladder) Ordered: 11/23/2024 [facility] Work Phone: Comment on above: Ordered: 11/23/2024 CBC W Auto Different ial panel - Blood [facility] Comprehensive metabo lic 2000 panel - Serum or Plasma [facility] End: 02-17-2024 DXA Skeletal system Views for bone density [facility] Service Area Work Phone: Comment on above: Once for 1 Occurrenc es starting 02/17/2024 until 02/17/2024 Erythrocyte sedimentation rate [facility] End: 02-03-2024 Glucose [Mass/volume] in Serum or Plasma Glucose Lab Routine Once (Lab) for 1 Occurrences starting 02/03/2024 until 02/03/2024 [facility] Work Phone: Comment on above: Once (Lab) for 1 Occ urrences starting 02/03/2024 until 02/03/2024 End: 08-30-2024 Holter monitor study [facility] Service Area Work Phone: Comment on above: Once for 1 Occurrenc es starting 08/30/2024 until 08/30/2024 Measurement of substance [facility] Measurement of substance [facility] End: 02-03-2024 Moderate Sedation Moderate Sedation Procedures Routine Once for 1 Occurrences starting 02/03/2024 until 02/03/2024 [facility] Service Area Work Phone: Comment on above: Once for 1 Occurrenc es starting 02/03/2024 until 02/03/2024 MR Brain WO and W contrast IV [facility] Work Phone: MR Cervical spine WO and W contrast IV [facility] Work Phone: MR Lumbar spine WO a nd W contrast [facility] MRI of thoracic spin e with contrast [facility] Patient referral [facility] Work Phone: Surgical pathology study [facility] Work Phone: Comment on above: Release Upon Orderin g for 1 Occurrences starting 02/03/2024 US.doppler Lower extremity vessels [facility] Immunizations Immunization Date Immunization Notes Care Provider Fa cility 03-25-2018 influenza virus vacc ine, unspecified formulation Agustina Stacy MD Work Phone: [facility] 07-22-2013 influenza virus vacc ine, unspecified formulation Agustina Stacy MD Work Phone: [facility] 07-07-2012 tetanus toxoid, redu shahrzad diphtheria toxoid, and acellular pertussis vaccine, adsorbed Agustina Stacy MD Work Phone: [facility] 05-10-2011 influenza virus vacc ine, unspecified formulation Agustina Stacy MD Work Phone: [facility] Payers Date Payer Category Payer Self-pay [id number] [phone] [id number] 2022 [employer] BLUE CARD PPO OOS [id number] 09-09-2022 Blue Cross Blue [facility] Care [facility] [id number] 09-09-2022 Unknown 09-09-2022 Unknown [id number] 05-10-2020 Unknown [id number] 1963 Unknown [id number] 2.16.840.1.340858.3.579.2. 1068 1963 Unknown [id number] 2.16.840.1.466265.3.579.2. 1068 1963 Unknown [id number] 2.16840.1.690404.3.579.2. 1068 1963 Unknown [id number] 2.16840.1.939058.3.579.2. 1068 1963 Unknown [id number] 2.16840.1.709806.3.579.2. 1068 1963 Unknown [id number] 2.16840.1.822899.3.579.2. 1068 1963 Unknown [id number] 2.16840.1.788423.3.579.2. 1068 1963 Unknown [id number] 2.16.840.1.993817.3.579.2. 1068 1963 Unknown [id number] 2.16.840.1.101509.3.579.2. 1068 1963 Unknown [id number] 2.16.840.1.717343.3.579.2. 1068 1963 Unknown [id number] 2.16.840.1.304811.3.579.2. 1068 1963 Unknown [id number] 2.16.840.1.742623.3.579.2. 1068 1963 Unknown [id number] 2.16.840.1.235860.3.579.2. 1068 1963 Unknown [id number] 2.16.840.1.932722.3.579.2. 1068 1963 Unknown [id number] 2.16.840.1.204523.3.579.2. 1068 1963 Unknown [id number] 2.16.840.1.100563.3.579.2. 1068 1963 Unknown [id number] 2.16.840.1.691948.3.579.2. 1068 1963 Unknown [id number] 2.16.840.1.700372.3.579.2. 1068 1963 Unknown [id number] 2.840.1.989806.3.579.2. 1068 1963 Unknown [id number] 2.16.840.1.296309.3.579.2. 1244 1963 Unknown [id number] 2..840.1.075731.3.579.2. 1244 1963 Unknown [id number] 2.16840.1.400533.3.579.2. 1244 1963 Unknown [id number] 2.840.1.051465.3.579.2. 1242 1963 Unknown [id number] 2.16.840.1.969721.3.579.2. 1242 1963 Unknown [id number] 2.16.840.1.165053.3.579.2. 1242 1963 Unknown [id number] 2.16.840.1.024614.3.579.2. 1242 1963 Unknown [id number] 2.16840.1.664784.3.579.2. 1242 1963 Unknown [id number] 2.16.840.1.640134.3.579.2. 1244 1963 Unknown [id number] 2.16.840.1.665556.3.579.2. 1244 Unknown [id number] 2.16.840.1.841838.3.579.2. 462 Unknown [id number] 2.16.840.1.157021.3.579.2. 462 Unknown [id number] 2.16.840.1.826155.3.579.2. 462 Unknown [id number] 2.16.840.1.054494.3.579.2. 462 Unknown [id number] 2.16.840.1.106339.3.579.2. 462 Unknown [id number] 2.16.840.1.530961.3.579.2. 462 Unknown [id number] 2.16.840.1.350563.3.579.2. 462 Unknown [id number] 2.16.840.1.935579.3.579.2. 462 Unknown [id number] 2.16.840.1.569699.3.579.2. 462 Unknown [id number] 2.16.840.1.510505.3.579.2. 462 Unknown [id number] 2.16.840.1.209015.3.579.2. 462 Social History Date Type Detail Facility Start: 09-20-2021 End: 07-24-2023 Tobacco smoking status MSIS Unknown if ever smoked [facility] Start: 1965 Sex Assigned At Female [facility] Start: 07-26-2023 End: 07-27-2023 Drinks beer Drinks beer [facility] Start: 05-12-1979 Tobacco smoking status MSIS Smokes tobacco daily [facility] Start: 05-12-1979 End: 05-12-1992 History of tobacco use Cigarette Smoker [facility] Start: 07-26-2023 End: 05-04-2024 Tobacco use and exposure Smokeless tobacco non-user [facility] Start: 07-27-2023 End: 11-23-2024 Alcohol intake Current drinker of alcohol (finding) [facility] Start: 07-27-2023 End: 07-28-2023 [facility] Utilities [facility] Has the [employer], [employer], oil, or water company threatened to shut off services in your home in past 12Mo No [facility] Adult Depression Screening Assessment [address] [facility] (I/We) worried whechapo er (my/our) food would run out before (I/we) got money to buy more. Never true [facility] Start: 07-26-2023 Tobacco Comment 1 cig per week - recreational [facility] Start: 03-15-2021 Alcohol Comment once a night [facility] Start: 1965 Sex [facility]igned At [facility] Start: 10-07-2018 Gender identity Identifies as female gender (finding) [facility] Start: 10-07-2018 Sexual orientation Heterosexual (finding) [facility] Start: 01-29-2024 Tobacco smoking status MSIS Never smoked tobacco [facility] Start: 12-16-2023 End: 08-30-2024 Exposure to SARS-CoV-2 (event) Not sure [facility] Start: 08-04-2023 End: 07-15-2024 Sex Female (finding) [facility] Start: 07-24-2023 End: 05-04-2024 Tobacco smoking status NHIS Ex-smoker [facility] Start: 05-12-1979 End: 05-12-1992 History of tobacco use Current smoker [facility] Start: 05-21-2024 End: 08-27-2024 Alcoholic beverage intake Ex-drinker (finding) [facility] Work Phone: Functional Status Date Assessment Result Facility 07-28-2023 Are you deaf, or do you have serious difficulty hearing No 07/28/2023 2:37 PM Mariela Pastrana, GEOVANNA No [facility] 07-28-2023 Are you blind, or do you have serious difficulty seeing, even when wearing glasses No 07/28/2023 2:37 PM Mariela Pastrana, GEOVANNA [facility] 07-28-2023 Do you have serious difficulty walking or climbing stairs No 07/28/2023 2:37 PM EDT Mariela Barriga RN No [facility] 07-28-2023 Do you have difficul ty dressing or bathing No 07/28/2023 2:37 PM EDT Mariela Barriga, GEOVANNA No [facility] 07-28-2023 Because of a physica l, mental, or emotional condition, do you have difficulty doing errands alone such as visiting a physician's office or shopping No 07/28/2023 2:37 PM EDT Mariela Barriga, GEOVANNA No [facility] Mental Status Date Assessment Result Facility 07-28-2023 Because of a physica l, mental, or emotional condition, do you have serious difficulty concentrating, remembering, or making decisions No 07/28/2023 2:37 PM EDT Mariela Barriga, GEOVANNA No [facility] Clinical Notes 01-04-2022 to 11-23-2024 Dimple Salazar APRN.CNP - 11/23/2024 4:04 PM Sherron Carney LPN - 11/23/2024 3:58 PM EDT Note Date & Type Note Facility 11-23-2024 Note HNO ID: [id number] Author: DIMPLE SALAZAR APRN.DAE Service: ? Author Type: Nurse Practitioner Type: Progress Notes Filed: 11/23/2024 16:18 Note Text: Socorro Grace is a 59 year old female who presents today for evaluation of Patient presents with: Follow Up: OAB (overactive bladder) CHIEF COMPLAINT AND HISTORY OF PRESENT ILLNESS CC: follow up 59 year old female with a history of MS with OAB, urinary urge incontinence presents for follow up, she may have to wait a few seconds for her stream to start her stream, denies straining to void, denies recent uti. Taking trospium 20 mg bid with good results PVR 7 cc DTF:every 2-3 hours was 1.5-2.0 hours NTF: 0-3 times URGENCY:yes improved UUI:yes improved DEVIN:rare STRAINING:no COMPLETE EMPTYING:yes PADS PER DAY: one when she leaves the house FLUID INTAKE: water 80 ounces 1 cup of coffee in the morning vaginal deliveries s/p hysterectomy for endometriosis Past Urological History: Stones:no Surgery:no Tumors:no Infections:no VITALS: Height 167.6 cm (5' 6), weight 65.8 kg (145 lb). ALLERGIES: Seasonal Allergies and Penicillins MEDICATIONS: Current Outpatient Medications Medication Sig Dispense Refill amantadine HCl (SYMMETREL) 100 mg capsule Take 100 mg by mouth two times a day. Cyclobenzap and Irritant Cntr Irr2 10 mg kit orphenadrine ER (NORFLEX) 100 mg tablet Take 100 mg by mouth two times a day. calcium carbonate/vitamin D3 (CALCIUM 600 + D ORAL) Take by mouth. ZINC ACETATE ORAL Take by mouth. trospium (SANCTURA) 20 mg tablet Take 1 tablet by mouth two times a day. 90 tablet 3 alendronate (FOSAMAX) 70 mg tablet TAKE 1 TABLET BY MOUTH ONCE A WEEK BEFORE THE FIRST FOOD, BEVERAGE OR MEDICINE OF THE DAY WITH PLAIN WATER magnesium oxide 400 mg magnesium tab hydrOXYzine HCl (ATARAX) 10 mg tablet Take 10 mg by mouth once daily. ascorbic acid, vitamin C, 500 mg cap Take 500 mg by mouth once daily. mecobalamin, vitamin B12, 1,000 mcg chew Take by mouth. multivitamin with minerals (VISION/OPTIGEN) tablet Take by mouth. escitalopram oxalate (LEXAPRO) 20 mg tablet Take 1 tablet by mouth once daily. 90 tablet 3 gabapentin (NEURONTIN) 400 mg capsule TAKE 1 CAPSULE BY MOUTH THREE TIMES DAILY FOR 90 DAYS. 90 capsule 2 fluticasone (FLONASE) 50 mcg/actuation nasal spray SPRAY 1 SPRAY INTO EACH NOSTRIL EVERY DAY 16 mL 5 Cholecalciferol, Vitamin D3, 5,000 unit cap Take 5,000 Units by mouth once daily. L.acid-B.animalis,bifid,infant (FORTIFY OPTIMA PROBIOTIC) 50 billion cell cpDR Take by mouth. (Patient not taking: Reported on 11/23/2024) SUMAtriptan (IMITREX) 100 mg tablet Take 1 tablet (100 mg) by mouth as needed for migraine headache (see administration instructions). at onset of headache.May repeat after 2 hours. 9 tablet 0 teriflunomide (AUBAGIO) 14 mg tablet Take 14 mg by mouth once daily. (Patient not taking: Reported on 05/04/2024) ondansetron (ZOFRAN) 4 mg tablet Take 1 tablet by mouth every 8 hours as needed. (Patient not taking: Reported on 05/04/2024) 20 tablet 0 ALAWAY 0.025 % (0.035 %) ophthalmic solution USE 1 DROP IN BOTH EYES TWICE DAILY. IN AFFECTED EYE(S). 10 mL 2 Ferrous Gluconate 240 mg (27 mg iron) tablet TAKE 1 TABLET BY MOUTH EVERY DAY IN THE MORNING 2 melatonin 10 mg cap Take 1 capsule by mouth daily at bedtime. 2 No current facility-administered medications for this visit. SOCIAL HISTORY: Social History Tobacco Use Smoking status: Former Current packs/day: 0.00 Average packs/day: 0.3 packs/day for 13.0 years (3.3 ttl pk-yrs) Types: Cigarettes Start date: 1979 Quit date: 1992 Years since quittin.5 Smokeless tobacco: Never Tobacco comments: 1 cig per week - recreational Substance Use Topics Alcohol use: Yes Comment: once a night Drug use: No PAST MEDICAL HISTORY: PAST MEDICAL HISTORY Diagnosis Date Depression SOCORRO (generalized anxiety disorder) Headache in front of head 07/27/2023 Possibly due to UTI with E. coli, also it is in a sinus distribution for the headache and may be new onset migraine but since this is the first time its happened to her diagnosis of migraine cannot be made with certainty. MS (multiple sclerosis) ([facility]) 2006 Dr. Buckley Osteopenia hip, spine. BMD 03/29 S/P hysterectomy LAYNE/BSO - endometriosis Snoring normal sleep study. on flonase Vitamin D deficiency PAST SURGICAL HISTORY: PAST SURGICAL HISTORY Procedure Laterality Date COLONOSCOPY 11/23/2013 - repeat 5 years - reminder created TOTAL ABDOMINAL HYSTERECT W/WO RMVL TUBE OVARY 05/12/1999 appendix with LAYNE/BSO for endometriosis FAMILY HISTORY: FAMILY HISTORY Problem Relation Age of Onset Diabetes Father Colon Cancer Father 60's, partial colectomy Heart Attack Father other (stents) Father Arthritis Mother other (migraines) Mother other (hsp) Daughter nephritis other (migraines) Daughter Colon Cancer Maternal (more content not included)... [facility] 11-23-2024 History of Present illness Narrative Socorro Grace is a 59 year old female who presents today for evaluation of Patient presents with: Follow Up: OAB (overactive bladder) CHIEF COMPLAINT & HISTORY OF PRESENT ILLNESS CC: follow up 59 year old female with a history of MS with OAB, urinary urge incontinence presents for follow up, she may have to wait a few seconds for her stream to start her stream, denies straining to void, denies recent uti. Taking trospium 20 mg bid with good results PVR 7 cc DTF:every 2-3 hours was 1.5-2.0 hours NTF: 0-3 times URGENCY:yes improved UUI:yes improved DEVIN:rare STRAINING:no COMPLETE EMPTYING:yes PADS PER DAY: one when she leaves the house FLUID INTAKE: water 80 ounces 1 cup of coffee in the morning vaginal deliveries s/p hysterectomy for endometriosis Past Urological History: Stones:no Surgery:no Tumors:no Infections:no VITALS: Height 167.6 cm (5' 6), weight 65.8 kg (145 lb). ALLERGIES: Seasonal Allergies and Penicillins MEDICATIONS: Current Outpatient Medications Medication Sig Dispense Refill amantadine HCl (SYMMETREL) 100 mg capsule Take 100 mg by mouth two times a day. Cyclobenzap and Irritant Cntr Irr2 10 mg kit orphenadrine ER (NORFLEX) 100 mg tablet Take 100 mg by mouth two times a day. calcium carbonate/vitamin D3 (CALCIUM 600 + D ORAL) Take by mouth. ZINC ACETATE ORAL Take by mouth. trospium (SANCTURA) 20 mg tablet Take 1 tablet by mouth two times a day. 90 tablet 3 alendronate (FOSAMAX) 70 mg tablet TAKE 1 TABLET BY MOUTH ONCE A WEEK BEFORE THE FIRST FOOD, BEVERAGE OR MEDICINE OF THE DAY WITH PLAIN WATER magnesium oxide 400 mg magnesium tab hydrOXYzine HCl (ATARAX) 10 mg tablet Take 10 mg by mouth once daily. ascorbic acid, vitamin C, 500 mg cap Take 500 mg by mouth once daily. mecobalamin, vitamin B12, 1,000 mcg chew Take by mouth. multivitamin with minerals (VISION/OPTIGEN) tablet Take by mouth. escitalopram oxalate (LEXAPRO) 20 mg tablet Take 1 tablet by mouth once daily. 90 tablet 3 gabapentin (NEURONTIN) 400 mg capsule TAKE 1 CAPSULE BY MOUTH THREE TIMES DAILY FOR 90 DAYS. 90 capsule 2 fluticasone (FLONASE) 50 mcg/actuation nasal spray SPRAY 1 SPRAY INTO EACH NOSTRIL EVERY DAY 16 mL 5 Cholecalciferol, Vitamin D3, 5,000 unit cap Take 5,000 Units by mouth once daily. L.acid-B.animalis,bifid,infant (FORTIFY OPTIMA PROBIOTIC) 50 billion cell cpDR Take by mouth. (Patient not taking: Reported on 11/23/2024) SUMAtriptan (IMITREX) 100 mg tablet Take 1 tablet (100 mg) by mouth as needed for migraine headache (see administration instructions). at onset of headache.May repeat after 2 hours. 9 tablet 0 teriflunomide (AUBAGIO) 14 mg tablet Take 14 mg by mouth once daily. (Patient not taking: Reported on 05/04/2024) ondansetron (ZOFRAN) 4 mg tablet Take 1 tablet by mouth every 8 hours as needed. (Patient not taking: Reported on 05/04/2024) 20 tablet 0 ALAWAY 0.025 % (0.035 %) ophthalmic solution USE 1 DROP IN BOTH EYES TWICE DAILY. IN AFFECTED EYE(S). 10 mL 2 Ferrous Gluconate 240 mg (27 mg iron) tablet TAKE 1 TABLET BY MOUTH EVERY DAY IN THE MORNING 2 melatonin 10 mg cap Take 1 capsule by mouth daily at bedtime. 2 No current facility-administered medications for this visit. SOCIAL HISTORY: Social History Tobacco Use Smoking status: Former Current packs/day: 0.00 Average packs/day: 0.3 packs/day for 13.0 years (3.3 ttl pk-yrs) Types: Cigarettes Start date: 1979 Quit date: 1992 Years since quittin.5 Smokeless tobacco: Never Tobacco comments: 1 cig per week - recreational Substance Use Topics Alcohol use: Yes Comment: once a night Drug use: No PAST MEDICAL HISTORY: PAST MEDICAL HISTORY Diagnosis Date Depression SOCORRO (generalized anxiety disorder) Headache in front of head 07/27/2023 Possibly due to UTI with E. coli, also it is in a sinus distribution for the headache and may be new onset migraine but since this is the first time its happened to her diagnosis of migraine cannot be made with certainty. MS (multiple sclerosis) ([facility]) 2006 Dr. Buckley Osteopenia hip, spine. BMD 03/29 S/P hysterectomy LAYNE/BSO - endometriosis Snoring normal sleep study. on flonase Vitamin D deficiency PAST SURGICAL HISTORY: PAST SURGICAL HISTORY Procedure Laterality Date COLONOSCOPY 11/23/2013 - repeat 5 years - reminder created TOTAL ABDOMINAL HYSTERECT W/WO RMVL TUBE OVARY 05/12/1999 appendix with LAYNE/BSO for endometriosis FAMILY HISTORY: FAMILY HISTORY Problem Relation Age of Onset Diabetes Father Colon Cancer Father 60's, partial colectomy Heart Attack Father other (stents) Father Arthritis Mother other (migraines) Mother other (hsp) Daughter nephritis other (migraines) Daughter Colon Cancer Maternal Grandfather Ovarian cancer Sister 40's 1/2 other (hepatitis C) Sister No Ocular Disease Other All histories reviewed on this date 11/23/2024: Yes REVIEW OF SYSTEMS: CONSTITUTIONAL: Patient reports no recent fever or weight loss RESPIRATORY: Negative for cough, hemoptysis, wheezing, COPD, dyspnea or shortness of breath GI: No nausea, vomiting, or diarrhea MUSCULOSKELETAL: +MS SKIN: Negative for lesions, rash, and itching All other systems reviewed and are negative other than HPI. PHYSICAL EXAM: constitutional: appears healthy in no acute distress respiratory: normal respiratory motion Neuro: Gait normal. Sensation grossly intact. RADIOLOGY REPORTS REVIEWED: Yes LAB RESULTS REVIEWED: Yes IMAGING STUDIES INDEPENDENTLY REVIEWED: No OLD RECORDS REVIEWED: Yes: Extensive: No ASSESSMENT/PLAN: 1. OAB (overactive bladder) - ICD9: 596.51, ICD10: N32.81 -PVR 7 cc -stable luts -overall she is happy with her luts -continue with trospium 20 mg po bid - BLADDER SCAN - TROSPIUM 20 MG TABLET 2. Multiple sclerosis (HCC) - ICD9: 340, ICD10: G35 -noted Patient is instructed to schedule a follow up in 12 months virtually Dimple Salazar APRN.DIRECTOR REGULATORY COMPLIANCE Bladder scan obtained 7 ml of urine documented in this encounter [facility] 11-23-2024 Note HNO ID: [id number] Author: SHERRON TRUJILLO LPN Service: ? Author Type: LICENSED NURSE Type: Progress Notes Filed: 11/23/2024 16:18 Note Text: Bladder scan obtained 7 ml of urine [facility] 09-13-2024 Evaluation note Diagnosis Onset Date Resolution Edema acute September 13, 2024 2:59pm Fatigue acute September 13, 2024 2:59pm History of varicose veins acute September 13, 2024 2: 59pm Left-sided trigeminal neuralgia acute September 13, 2024 2: 59pm Multiple sclerosis acute September h2024 2:59pm History of vitamin D deficiency resolved September 13, 2024 2: 59pm [facility] Work Phone: 1(509) 728-227705-05-2025 Evaluation note* Diagnosis Onset Date Resolution Status Admit Date Edema acute September 13, 2024 2:59pm Fatigue acute September 13, 2024 2:59pm History of varicose veins acute September 13, 2024 2:59pm Left-sided trigeminal neuralgia acut e September 13, 2024 2:59pm Multiple sclerosis acute September h2024 2:59pm History of vitamin D deficiency reso lved September 13, 2024 2:59pm 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 female who presents for Fall and ER Follow-up. HPI Here today for Er follow up after she fell. She reports she was walking inside and just fell backwards hitting her head. She went to the Er and had a negative workup other than hyponatremia. CT and MRI of head were normal. Denies any chest pain, headaches or dizziness. Review of Systems Objective BP 125/86 (Patient Position: Sitting) Pulse 80 Ht 1.651 m (5' 5) Wt 67.5 kg (148 lb 14.4 oz) BMI 24.78 kg/m Physical Exam Assessment/Plan Syncope -Found to have low sodium -Repeat BMP ordered today -Consider sodium bicarbonate if it is still low -Consider holter monitor if BMP is normal Schriever on right foot -She would like to try to remove it herself -if no success recommend podiatry referral for removal Hyponatremia -BMP ordered -consider sodium bicarbonate tablets if it is still low -Consider BMP every 4 weeks for monitoring documented in this [facility] Work Phone: 1(623) 204-634001-20-2025 Evaluation note* Diagnosis Onset Date Resolution Status Admit Date Edema acute May 31, 2024 1:49pm Fatigue acute May 31, 2024 1:49pm Left-sided trigeminal neuralgia acute May 31 1:49pm Multiple sclerosis acute 2024 1:49pm History of vitamin D deficiency resolved May 31 1:49pm [facility] Work Phone: 1(601) 167-367901-20-2025 Evaluation note* Diagnosis Onset Date Resolution Status Admit Date Edema acute May 31, 2024 1:49pm Fatigue acute May 31, 2024 1:49pm Left-sided trigeminal neuralgia acute May 31 1:49pm Multiple sclerosis acute 2024 1:49pm History of vitamin D deficiency resolved May 31 1:49pm Edema acute September 13, 2024 2:59pm Fatigue acute September 13, 2024 2:59pm History of varicose veins acute September 13, 2024 2:59pm Left-sided trigeminal neuralgia acute September 13, 2024 2: 59pm Multiple sclerosis acute September 2:59pm History of vitamin D deficiency resolved September 13, 2024 2: 59pm [facility] Work Phone: 1([phone]) 243-683901-10-2025 History of Present illness Narrative* ALYSE Leblanc - 05/21/2024 4:30 PM EST Subjective Patient ID: Socorro Grace is a 58 y.o. female who presents for Establish Care (Est as new. No complaints). HPI Here today to establish care as a new patient. Pt was being seen by a physician in [place], she would like to move closer to home. She is being treated for MS, her greatest symptoms are balance, vision and urinary symptoms. She follows with ophthalmology for optic neuritis and sees them yearly. She suffers from mild depression and takes Lexapro 5 mg daily. Denies any acute concerns Review of Systems Constitutional: Negative for chills, fatigue and fever. Respiratory: Negative for cough and shortness of breath. Cardiovascular: Negative for chest pain, palpitations and leg swelling. Gastrointestinal: Negative for abdominal pain, constipation, diarrhea, nausea and vomiting. Genitourinary: Positive for urgency. Negative for difficulty urinating, dysuria and frequency. Neurological: Positive for weakness. Negative for light-headedness, numbness and headaches. Objective BP 121/81 Pulse 74 Ht 1.651 m (5' 5) Wt 76.6 kg (168 lb 12.8 oz) BMI 28.09 kg/m Physical Exam Cardiovascular: Rate and Rhythm: Normal rate and regular rhythm. Neurological: Mental Status: She is alert and oriented to person, place, and time. Assessment/Plan Problem List Items Addressed This Visit None Visit Diagnoses Codes MS (multiple sclerosis) (Multi) - Primary G35 Persistent depressive disorder F34.1 Osteopenia, unspecified location M85.80 Yearly maintenance -Colonoscopy done in 02/02 -Mammogram 03/04 -Lab work due at next physical, neurology will also be ordering some this month MS -Following with neurology in [place] -She is releasing her records to us so we can keep updated Osteopenia -She is taking the fosamax every 7 days OAB/Incontinence -Follows with urology -Related to her MS documented in this [facility] Work Phone: 1(877) 735-550812-24-2024 NoteHNO ID: [id number] Author: DIMPLE SALAZAR APRN.DAE Service: ? Author Type: Nurse Practitioner Type: Progress Notes Filed: 05/04/2024 10:56 Note Text: Socorro Grace is a 58 year old female who presents today for evaluation of No chief complaint on file. CHIEF COMPLAINT AND HISTORY OF PRESENT ILLNESS CC: follow up 58 year old female with a history of MS with OAB, urinary urge incontinence presents for follow up, she was seen in our office August 2023 started on trospium 20 mg bid she feels that the medication has helped with DTF and urgency. Past PFPT and kegels Denies frequent uti Denies gross hematuria PVR 0 cc DTF:every 2-3 hours was 1.5-2.0 hours NTF: 0-3 times URGENCY:yes improved UUI:yes improved DEVIN:rare STRAINING:no COMPLETE EMPTYING:yes PADS PER DAY: one was 2-3 depends per day, not always soaked FLUID INTAKE: water 80 ounces 1 cup of coffee in the morning vaginal deliveries s/p hysterectomy for endometriosis Past Urological History: Stones:no Surgery:no Tumors:no Infections:no VITALS: There were no vitals taken for this visit. ALLERGIES: Seasonal Allergies and Penicillins MEDICATIONS: Current Outpatient Medications Medication Sig Dispense Refill trospium (SANCTURA) 20 mg tablet Take 1 tablet by mouth two times a day. 60 tablet 3 SUMAtriptan (IMITREX) 100 mg tablet Take 1 tablet (100 mg) by mouth as needed for migraine headache (see administration instructions). at onset of headache.May repeat after 2 hours. 9 tablet 0 alendronate (FOSAMAX) 70 mg tablet TAKE 1 TABLET BY MOUTH ONCE A WEEK BEFORE THE FIRST FOOD, BEVERAGE OR MEDICINE OF THE DAY WITH PLAIN WATER magnesium oxide 400 mg magnesium tab hydrOXYzine HCl (ATARAX) 10 mg tablet Take 10 mg by mouth once daily. teriflunomide (AUBAGIO) 14 mg tablet Take 14 mg by mouth once daily. ascorbic acid, vitamin C, 500 mg cap Take 500 mg by mouth once daily. mecobalamin, vitamin B12, 1,000 mcg chew Take by mouth. multivitamin with minerals (VISION/OPTIGEN) tablet Take by mouth. escitalopram oxalate (LEXAPRO) 20 mg tablet Take 1 tablet by mouth once daily. 90 tablet 3 ondansetron (ZOFRAN) 4 mg tablet Take 1 tablet by mouth every 8 hours as needed. 20 tablet 0 gabapentin (NEURONTIN) 400 mg capsule TAKE 1 CAPSULE BY MOUTH THREE TIMES DAILY FOR 90 DAYS. 90 capsule 2 ALAWAY 0.025 % (0.035 %) ophthalmic solution USE 1 DROP IN BOTH EYES TWICE DAILY. IN AFFECTED EYE(S). 10 mL 2 fluticasone (FLONASE) 50 mcg/actuation nasal spray SPRAY 1 SPRAY INTO EACH NOSTRIL EVERY DAY 16 mL 5 Ferrous Gluconate 240 mg (27 mg iron) tablet TAKE 1 TABLET BY MOUTH EVERY DAY IN THE MORNING 2 melatonin 10 mg cap Take 1 capsule by mouth daily at bedtime. 2 Cholecalciferol, Vitamin D3, 5,000 unit cap Take 5,000 Units by mouth once daily. No current facility-administered medications for this visit. SOCIAL HISTORY: Social History Tobacco Use Smoking status: Every Day Current packs/day: 0.00 Average packs/day: 0.3 packs/day for 13.0 years (3.3 ttl pk-yrs) Types: Cigarettes Start date: 1979 Last attempt to quit: 1992 Years since quittin.0 Smokeless tobacco: Never Tobacco comments: 1 cig per week - recreational Substance Use Topics Alcohol use: Yes Comment: once a night Drug use: No PAST MEDICAL HISTORY: PAST MEDICAL HISTORY Diagnosis Date Depression SOCORRO (generalized anxiety disorder) Headache in front of head 07/27/2023 Possibly due to UTI with E. coli, also it is in a sinus distribution for the headache and may be new onset migraine but since this is the first time its happened to her diagnosis of migraine cannot be made with certainty. MS (multiple sclerosis) ([facility]) 2006 Dr. Buckley Osteopenia hip, spine. BMD 03/29 S/P hysterectomy LAYNE/BSO - endometriosis Snoring normal sleep study. on flonase Vitamin D deficiency PAST SURGICAL HISTORY: PAST SURGICAL HISTORY Procedure Laterality Date COLONOSCOPY 11/23/2013 - repeat 5 years - reminder created TOTAL ABDOMINAL HYSTERECT W/WO RMVL TUBE OVARY 05/12/1999 appendix with LAYNE/BSO for endometriosis FAMILY HISTORY: FAMILY HISTORY Problem Relation Age of Onset Diabetes Father Colon Cancer Father 60's, partial colectomy Heart Attack Father other (stents) Father Arthritis Mother other (migraines) Mother other (hsp) Daughter nephritis other (migraines) Daughter Colon Cancer Maternal Grandfather Ovarian cancer Sister 40's 1/2 other (hepatitis C) Sister No Ocular Disease Other All histories reviewed on this date 05/04/2024: Yes REVIEW OF SYSTEMS: CONSTITUTIONAL: Patient reports no recent fever or weight loss CARDIOVASCULAR: Negative for chest pain. RESPIRATORY: Negative for cough, hemoptysis, wheezing, COPD, dyspnea or shortness of breath GI: No nausea, vomiting, or diarrhea MUSCULOSKELETAL: +MS SKIN: Negative for lesions, rash, and itching PSYCH: Negative for slee (more content not included)...[facility]12-24-2024 History of Present illness Narrative* Dimple Salazar APRN.DIRECTOR REGULATORY COMPLIANCE - 05/04/2024 10:08 AM EST Socorro Grace is a 58 year old female who presents today for evaluation of No chief complaint on file. CHIEF COMPLAINT & HISTORY OF PRESENT ILLNESS CC: follow up 58 year old female with a history of MS with OAB, urinary urge incontinence presents for follow up,she was seen in our office August 2023 started on trospium 20 mg bid she feels that the medication has helped with DTF and urgency. Past PFPT and kegels Denies frequent uti Denies gross hematuria PVR 0 cc DTF:every 2-3 hours was 1.5-2.0 hours NTF: 0-3 times URGENCY:yes improved UUI:yes improved DEVIN:rare STRAINING:no COMPLETE EMPTYING:yes PADS PER DAY: one was 2-3 depends per day, not always soaked FLUID INTAKE: water 80 ounces 1 cup of coffee in the morning vaginal deliveries s/p hysterectomy for endometriosis Past Urological History: Stones:no Surgery:no Tumors:no Infections:no VITALS: There were no vitals taken for this visit. ALLERGIES: Seasonal Allergies and Penicillins MEDICATIONS: Current Outpatient Medications Medication Sig Dispense Refill trospium (SANCTURA) 20 mg tablet Take 1 tablet by mouth two times a day. 60 tablet 3 SUMAtriptan (IMITREX) 100 mg tablet Take 1 tablet (100 mg) by mouth as needed for migraine headache(see administration instructions). at onset of headache.May repeat after 2 hours. 9 tablet 0 alendronate (FOSAMAX) 70 mg tablet TAKE 1 TABLET BY MOUTH ONCE A WEEK BEFORE THE FIRST FOOD, BEVERAGE OR MEDICINE OF THE DAY WITH PLAIN WATER magnesium oxide 400 mg magnesium tab hydrOXYzine HCl (ATARAX) 10 mg tablet Take 10 mg by mouth once daily. teriflunomide (AUBAGIO) 14 mg tablet Take 14 mg by mouth once daily. ascorbic acid, vitamin C, 500 mg cap Take 500 mg by mouth once daily. mecobalamin, vitamin B12, 1,000 mcg chew Take by mouth. multivitamin with minerals (VISION/OPTIGEN) tablet Take by mouth. escitalopram oxalate (LEXAPRO) 20 mg tablet Take 1 tablet by mouth once daily. 90 tablet 3 ondansetron (ZOFRAN) 4 mg tablet Take 1 tablet by mouth every 8 hours as needed. 20 tablet 0 gabapentin (NEURONTIN) 400 mg capsule TAKE 1 CAPSULE BY MOUTH THREE TIMES DAILY FOR 90 DAYS. 90 capsule 2 ALAWAY 0.025 % (0.035 %) ophthalmic solution USE 1 DROP IN BOTH EYES TWICE DAILY. IN AFFECTED EYE(S). 10 mL 2 fluticasone (FLONASE) 50 mcg/actuation nasal spray SPRAY 1 SPRAY INTO EACH NOSTRIL EVERY DAY 16 mL 5 Ferrous Gluconate 240 mg (27 mg iron) tablet TAKE 1 TABLET BY MOUTH EVERY DAY IN THE MORNING 2 melatonin 10 mg cap Take 1 capsule by mouth daily at bedtime. 2 Cholecalciferol, Vitamin D3, 5,000 unit cap Take 5,000 Units by mouth once daily. No current facility-administered medications for this visit. SOCIAL HISTORY: Social History Tobacco Use Smoking status: Every Day Current packs/day: 0.00 Average packs/day: 0.3 packs/day for 13.0 years (3.3 ttl pk-yrs) Types: Cigarettes Start date: 1979 Last attempt to quit: 1992 Years since quittin.0 Smokeless tobacco: Never Tobacco comments: 1 cig per week - recreational Substance Use Topics Alcohol use: Yes Comment: once a night Drug use: No PAST MEDICAL HISTORY: PAST MEDICAL HISTORY Diagnosis Date Depression SOCORRO (generalized anxiety disorder) Headache in front of head 07/27/2023 Possibly due to UTI with E. coli, also it is in a sinus distribution for the headache and may be new onset migraine but since this is the first time its happened to her diagnosis of migraine cannot be made with certainty. MS (multiple sclerosis) ([facility]) 2006 Dr. Buckley Osteopenia hip, spine. BMD 03/29 S/P hysterectomy LAYNE/BSO - endometriosis Snoring normal sleep study. on flonase Vitamin D deficiency PAST SURGICAL HISTORY: PAST SURGICAL HISTORY Procedure Laterality Date COLONOSCOPY 11/23/2013 - repeat 5 years - reminder created TOTAL ABDOMINAL HYSTERECT W/WO RMVL TUBE OVARY 05/12/1999 appendix with LAYNE/BSO for endometriosis FAMILY HISTORY: FAMILY HISTORY Problem Relation Age of Onset Diabetes Father Colon Cancer Father 60's, partial colectomy Heart Attack Father other (stents) Father Arthritis Mother other (migraines) Mother other (hsp) Daughter nephritis other (migraines) Daughter Colon Cancer Maternal Grandfather Ovarian cancer Sister 40's 1/2 other (hepatitis C) Sister No Ocular Disease Other All histories reviewed on this date 05/04/2024: Yes REVIEW OF SYSTEMS: CONSTITUTIONAL: Patient reports no recent fever or weight loss CARDIOVASCULAR: Negative for chest pain. RESPIRATORY: Negative for cough, hemoptysis, wheezing, COPD, dyspnea or shortness of breath GI: No nausea, vomiting, or diarrhea MUSCULOSKELETAL: +MS SKIN: Negative for lesions, rash, and itching PSYCH: Negative for sleep disturbance, mood disorder and recent psychosocial stressors. HEMATOLOGY/LYMPHOLOGY Negative for prolonged bleeding, bruising easily or swollen nodes ENDOCRINE: Negative for cold or heat intolerance, polyuria, polydipsia and goiter All other systems reviewed and are negative other than HPI. PHYSICAL EXAM: constitutional: appears healthy in no acute distress respiratory: normal respiratory motion gu: bladder: not palpable, no tenderness. pelvic at next visit, patient did not want to take off her leg brace Neuro: Gait normal. Sensation grossly intact. RADIOLOGY REPORTS REVIEWED: Yes LAB RESULTS REVIEWED: Yes Latest Ref Rng 05/04/2024 GLUCOSE UA (POCT) Negative mg/dL Negative BILIRUBIN UA (POCT) Negative Negative KETONE UA (POCT) Negative mg/dL Negative SPECIFIC GRAVITY UA (POCT) 1.005 - 1.030 1.015 HEMOGLOBIN/BLOOD UA (POCT) Negative Negative PH UA (POCT) 4.5 - 8.0 7.0 PROTEIN UA (POCT) Negative mg/dL Negative UROBILINOGEN UA (POCT) Normal E.U./dL 0.2 NITRITE UA (POCT) Negative Negative LEUKOCYTES UA (POCT) Negative Trace ! COLOR UA (POCT) Yellow CLARITY UA (POCT) Clear IMAGING STUDIES INDEPENDENTLY REVIEWED: No OLD RECORDS REVIEWED: Yes: Extensive: No ASSESSMENT/PLAN: 1. OAB (overactive bladder) - ICD9: 596.51, ICD10: N32.81 (primary diagnosis) -improved LUTS -continue with trospium 20 mg bid, refilled - TROSPIUM 20 MG TABLET 3. Multiple sclerosis (HCC) - ICD9: 340, ICD10: G35 -noted 4. Urge incontinence - ICD9: 788.31, ICD10: N39.41 - TROSPIUM 20 MG TABLET Patient is instructed to schedule a follow up in 6 months Dimple Salazar APRN.DIRECTOR REGULATORY COMPLIANCE [facility] Tele[facility] encounter Note * Telephone Encounter - Yolanda Shaw RN - 04/15/2024 1:23 PM EST S: Pt calling [facility] re: appt B: Today A: Pt states she has a VV @ 1300 w/ Dr Stacy and is in virtual WR since 1255. Pt asking if provider is still going to see her R: Attempted call to backline. RN paged Dr Stacy via secure chat to inquire about appt. RN notes pt is no longer on hold & call was ended. Provider responded back stating she called the pt & is speaking to pt currently. Reason for Disposition General information question, no triage required and triager able to answer question Protocols used: Information Only Call - No [id number] [id number] Miscellaneous Notes* Telephone Encounter - Yolanda Shaw RN - 04/15/2024 1:23 PM EST S: Pt calling [facility] re: appt B: Today A: Pt states she has a VV @ 1300 w/ Dr Stacy and is in virtual WR since 1255. Pt asking if provider is still going to see her R: Attempted call to backline. RN paged Dr Stacy via secure chat to inquire about appt. RN notes pt is no longer on hold & call was ended. Provider responded back stating she called the pt & is speaking to pt currently. Reason for Disposition General information question, no triage required and triager able to answer question Protocols used: Information Only Call - No [id number] documented in this [facility]12-02-2024 Telephone encounter Note* Telephone Encounter - Teri Newton RN - 04/12/2024 5:10 PM EST S: Patient is returning a call to the office. B: Tested + COVID today. A: She called earlier today and was triaged by [facility] RN. Body aches are her worst symptom. Taking ibuprofen which isn't helping. She may go to [facility] tomorrow or the next day if sore throat and earache continues. She is just wondering what her PCP would recommend. She denies SOB or chest pain. R: Advised a message would be sent to provider for recommendations. Allergies and pharmacy reviewedin eCW. She would like a call back and if not available, then a message left. HP TE entered in eCW. Reason for Disposition [1] Follow-up call from patient regarding patient's clinical status AND [2] information NON-URGENT Protocols used: PCP Call - No [id number] [phone] Miscellaneous Notes* Telephone Encounter - Teri Newton RN - 04/12/2024 5:10 PM EST S: Patient is returning a call to the office. B: Tested + COVID today. A: She called earlier today and was triaged by [facility] RN. Body aches are her worst symptom. Taking ibuprofen which isn't helping. She may go to [facility] tomorrow or the next day if sore throat and earache continues. She is just wondering what her PCP would recommend. She denies SOB or chest pain. R: Advised a message would be sent to provider for recommendations. Allergies and pharmacy reviewedin eCW. She would like a call back and if not available, then a message left. HP TE entered in eCW. Reason for Disposition [1] Follow-up call from patient regarding patient's clinical status AND [2] information NON-URGENT Protocols used: PCP Call - No [id number] documented in this [facility] HospitalYulgcz05-06-4045 Telephone encounter Note* Telephone Encounter - Sonal Anne RN - 04/12/2024 1:16 PM EST S: Patient spoke with [facility] nurse regarding body aches, fever, cold symptoms B: Onset of symptoms/concern Friday A: Pt reports was just sneezing and cold symptoms. States today started with body achy, has a fever (100.3), headache, sore throat and ears are sore today. Family members tested positive for COVID Friday and they have been around them. Took COVID tests at home that are giving her a note says invalid reading Pt reports she has been directed to call in prior to going to , reports she is unable to do a virtual visit and has no ride to the office during business hours due to her spouse is working. Reportsshe will likely have to to to the [facility] clinic R: Patient understands care advice. Patient instructed to call back with new or worsening symptoms.Message sent to the provider's office for review and recommendations HP Reason for Disposition [1] HIGH RISK patient AND [2] influenza is widespread in the community AND [3] ONE OR MORE respiratory symptoms: cough, sore throat, runny or stuffy nose Protocols used: Coronavirus (COVID-19) Diagnosed or [id number] [id number] Miscellaneous Notes* Telephone Encounter - Sonal Anne RN - 04/12/2024 1:16 PM EST S: Patient spoke with [facility] nurse regarding body aches, fever, cold symptoms B: Onset of symptoms/concern Friday A: Pt reports was just sneezing and cold symptoms. States today started with body achy, has a fever (100.3), headache, sore throat and ears are sore today. Family members tested positive for COVID Friday and they have been around them. Took COVID tests at home that are giving her a note says invalid reading Pt reports she has been directed to call in prior to going to , reports she is unable to do a virtual visit and has no ride to the office during business hours due to her spouse is working. Reportsshe will likely have to to to the [facility] clinic R: Patient understands care advice. Patient instructed to call back with new or worsening symptoms.Message sent to the provider's office for review and recommendations HP Reason for Disposition [1] HIGH RISK patient AND [2] influenza is widespread in the community AND [3] ONE OR MORE respiratory symptoms: cough, sore throat, runny or stuffy nose Protocols used: Coronavirus (COVID-19) Diagnosed or [id number] documented in this [facility]11-18-2024 Telephone encounter Note* Telephone Encounter - Lauren Bustillo - 03/29/2024 8:35 AM EST Name of caller: Socorro Contact phone number: [phone] Relationship to Patient: patient Provider: Dr. Stacy Practice: [facility] Chief Complaint/Reason for Call: Patient states that they had just spoke to someone in office regarding the lab work they completed on Tuesday 03/27 and the lab is using the blood they gave on Friday to do a B12, Vitamin D, and lipid panel lab and they will need the orders for this faxed to them. Patient would like these lab orders faxed to #[phone] [facility] [place]. Patient is requesting a call back to be informed and states that a voicemail can be left. Please advise. Best time of day caller can be reached: Any Patient advised that office/PCP has 24-48 business hours to return their call: No [id number] Miscellaneous Notes* Telephone Encounter - Lauren Bustillo - 03/29/2024 8:35 AM EST Name of caller: Socorro Contact phone number: [phone] Relationship to Patient: patient Provider: Dr. Stacy Practice: [facility] Chief Complaint/Reason for Call: Patient states that they had just spoke to someone in office regarding the lab work they completed on Tuesday 03/27 and the lab is using the blood they gave on Friday to do a B12, Vitamin D, and lipid panel lab and they will need the orders for this faxed to them. Patient would like these lab orders faxed to #[phone] attention lab [place]. Patient is requesting a call back to be informed and states that a voicemail can be left. Please advise. Best time of day caller can be reached: Any Patient advised that office/PCP has 24-48 business hours to return their call: No documented in this [facility]11-11-2024 Telephone encounter Note* Telephone Encounter - Kavya Lancaster RN - 03/22/2024 2:50 PM EST Patient calling to see if she needs to follow up before the end of the year with Dimple Salazar. Spoke with patient and she was to do a Voiding diary and she will complete and we do want to see her for follow up. She has been doing [facility] declined that she was doing PFPT and wanted Pelvic floor muscle checking. Appt scheduled for 04-14-2024. Closing. [facility]11-11-2024 Miscellaneous Notes* Telephone Encounter - Kavya Lancaster RN - 03/22/2024 2:50 PM EST Patient calling to see if she needs to follow up before the end of the year with Dimple Salazar. Spoke with patient and she was to do a Voiding diary and she will complete and we do want to see her for follow up. She has been doing Kegel declined that she was doing PFPT and wanted Pelvic floor muscle checking. Appt scheduled for 04-14-2024. Closing. [facility] Discharge instructions* Discharge Instructions* Luna Epstein RN - 02/03/2024 1:40 PM EDT Patient Instructions after a Colonoscopy The anesthetics, sedatives or narcotics which were given to you today will be acting in your body for the next 24 hours, so you might feel a little sleepy or groggy. This feeling should slowly wear off. Carefully read and follow the instructions. You received sedation today: - Do not drive or operate any machinery or power tools of any kind. - No alcoholic beverages today, not even beer or wine. - Do not make any important decisions or sign any legal documents. - No over the counter medications that contain alcohol or that may cause drowsiness. - Do not make any important decisions or sign any legal documents. - Make sure you have someone with you for first 24 hours. While it is common to experience mild to moderate abdominal distention, gas, or belching after yourprocedure, if any of these symptoms occur following discharge from the GI Lab or within one week ofhaving your procedure, call the [facility] to be advised whether a visit to your nearest Urgent Care or Emergency Department is indicated. Take this paper with you if you go. - If you develop an allergic reaction to the medications that were given during your procedure suchas difficulty breathing, rash, hives, severe nausea, vomiting or lightheadedness. - If you experience chest pain, shortness of breath, severe abdominal pain, fevers and chills. -If you develop signs and symptoms of bleeding such as blood in your spit, if your stools turn black, tarry, or bloody - If you have not urinated within 8 hours following your procedure. - If your IV site becomes painful, red, inflamed, or looks infected. If you received a biopsy/polypectomy/sphincterotomy the following instructions apply below: __ Do not use Aspirin containing products, non-steroidal medications or anti- coagulants for one week following your procedure. (Examples of these types of medications are: Advil, Arthrotec, Aleve, Coumadin, Ecotrin, Heparin, Ibuprofen, Indocin, Motrin, Naprosyn, Nuprin, Plavix, Vioxx, and Voltarin,or their generic forms. This list is not all-inclusive. Check with your physician or pharmacist before resuming medications.) __ Eat a soft diet today. Avoid foods that are poorly digested for the next 24 hours. These foods would include: nuts, beans, lettuce, red meats, and fried foods. Start with liquids and advance your diet as tolerated, gradually work up to eating solids. __ Do not have a Barium Study or Enema for one week. Your physician recommends the additional following instructions: -You have a contact number available for emergencies. The signs and symptoms of potential delayed complications were discussed with you. You may return to normal activities tomorrow. -Resume your previous diet. -Continue your present medications. -We are waiting for your pathology results. -Your physician has recommended a repeat colonoscopy (date to be determined after pending pathologyresults are reviewed) for surveillance based on pathology results. -The findings and recommendations have been discussed with you. -The findings and recommendations were discussed with your family. - Please see Medication Reconciliation Form for new medication/medications prescribed. If you experience any problems or have any questions following discharge from the GI Lab, please call: Nurse Signature Date Patient/Responsible [employer] [place] Signature Date documented in this [facility] Work Phone: [phone]) 798-966309-24-2024 History and physical note* Lamin Redding DO - 02/03/2024 12:40 PM EDT History Of Present Illness Socorro Grace is a 58 y.o. female presenting with colon cancer screening. Past Medical History Past Medical History: Diagnosis Date Multiple sclerosis (Multi) History of multiple sclerosis Other malaise 02/25/2018 Malaise and fatigue Other specified anxiety disorders 02/25/2018 Depression with anxiety Personal history of other diseases of the nervous system and sense organs History of neuropathy Surgical History Past Surgical History: Procedure Laterality Date COLONOSCOPY 02/25/2018 Colonoscopy (Fiberoptic) EXTERNAL EAR SURGERY HYSTERECTOMY 02/25/2018 Hysterectomy Social History She reports that she has never smoked. She does not have any smokeless tobacco history on file. Shereports current alcohol use. No history on file for drug use. Family History No family history on file. Allergies Allergies Allergen Reactions Penicillins Rash Review of Systems Pre-sedation Evaluation: ASA Classification - ASA 2 - Patient with mild systemic disease with no functional limitations Mallampati Score - II (hard and soft palate, upper portion of tonsils and uvula visible) Physical Exam Vitals and nursing note reviewed. Constitutional: Appearance: Normal appearance. HENT: Head: Normocephalic. Mouth/Throat: Mouth: Mucous membranes are moist. Pharynx: Oropharynx is clear. Eyes: Conjunctiva/sclera: Conjunctivae normal. Pupils: Pupils are equal, round, and reactive to light. Cardiovascular: Rate and Rhythm: Normal rate and regular rhythm. Heart sounds: Normal heart sounds. Pulmonary: Effort: Pulmonary effort is normal. Breath sounds: Normal breath sounds. Abdominal: General: Abdomen is flat. Bowel sounds are normal. Palpations: Abdomen is soft. Musculoskeletal: Cervical back: Normal range of motion and neck supple. Skin: General: Skin is warm and dry. Neurological: General: No focal deficit present. Mental Status: She is alert and oriented to person, place, and time. Psychiatric: Behavior: Behavior normal. Last Recorded Vitals There were no vitals taken for this visit. 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 amantadine (Symmetrel) 100 mg capsule Take 1 capsule (100 mg) by mouth 3 times a day. cyclobenzaprine (Flexeril) 10 mg tablet Take 1 tablet (10 mg) by mouth once daily at bedtime. escitalopram (Lexapro) 5 mg tablet Take 1 tablet (5 mg) by mouth once daily. Flonase Allergy Relief 50 mcg/actuation nasal spray Administer 2 sprays into each nostril every 12 hours. gabapentin (Neurontin) 400 mg capsule Take 1 capsule (400 mg) by mouth 3 times a day. hydrOXYzine HCL (Atarax) 10 mg tablet Take 1 tablet (10 mg) by mouth once daily as needed. magnesium oxide (Mag-Ox) 400 mg (241.3 mg magnesium) tablet Take 1 tablet (400 mg) by mouth early in the morning.. omega 1-mxj-zfo-fish oil (Fish OiL) 1,000 mg (120 mg-180 mg) capsule Take 1 capsule (1,000 mg) by mouth once every 24 hours. orphenadrine (Norflex) 100 mg 12 hr tablet Take 1 tablet (100 mg) by mouth once daily. teriflunomide (Aubagio) 14 mg tablet tablet Take 1 tablet (14 mg) by mouth once daily. trospium (Sanctura) 20 mg tablet Take 1 tablet (20 mg) by mouth 2 times a day. Current Facility-Administered Medications Medication Dose Route Frequency Provider Last Rate Last Admin lactated Ringer's infusion 20 mL/hr intravenous Continuous DO Lamin Sargent DO [facility] Work Phone: [phone] 520-917109-24-2024 History and physical note* Lamin Redding DO - 02/03/2024 12:40 PM EDT History Of Present Illness Socorro Grace is a 58 y.o. female presenting with colon cancer screening. Past Medical History Past Medical History: Diagnosis Date Multiple sclerosis (Multi) History of multiple sclerosis Other malaise 02/25/2018 Malaise and fatigue Other specified anxiety disorders 02/25/2018 Depression with anxiety Personal history of other diseases of the nervous system and sense organs History of neuropathy Surgical History Past Surgical History: Procedure Laterality Date COLONOSCOPY 02/25/2018 Colonoscopy (Fiberoptic) EXTERNAL EAR SURGERY HYSTERECTOMY 02/25/2018 Hysterectomy Social History She reports that she has never smoked. She does not have any smokeless tobacco history on file. Shereports current alcohol use. No history on file for drug use. Family History No family history on file. Allergies Allergies Allergen Reactions Penicillins Rash Review of Systems Pre-sedation Evaluation: ASA Classification - ASA 2 - Patient with mild systemic disease with no functional limitations Mallampati Score - II (hard and soft palate, upper portion of tonsils and uvula visible) Physical Exam Vitals and nursing note reviewed. Constitutional: Appearance: Normal appearance. HENT: Head: Normocephalic. Mouth/Throat: Mouth: Mucous membranes are moist. Pharynx: Oropharynx is clear. Eyes: Conjunctiva/sclera: Conjunctivae normal. Pupils: Pupils are equal, round, and reactive to light. Cardiovascular: Rate and Rhythm: Normal rate and regular rhythm. Heart sounds: Normal heart sounds. Pulmonary: Effort: Pulmonary effort is normal. Breath sounds: Normal breath sounds. Abdominal: General: Abdomen is flat. Bowel sounds are normal. Palpations: Abdomen is soft. Musculoskeletal: Cervical back: Normal range of motion and neck supple. Skin: General: Skin is warm and dry. Neurological: General: No focal deficit present. Mental Status: She is alert and oriented to person, place, and time. Psychiatric: Behavior: Behavior normal. Last Recorded Vitals There were no vitals taken for this visit. 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 amantadine (Symmetrel) 100 mg capsule Take 1 capsule (100 mg) by mouth 3 times a day. cyclobenzaprine (Flexeril) 10 mg tablet Take 1 tablet (10 mg) by mouth once daily at bedtime. escitalopram (Lexapro) 5 mg tablet Take 1 tablet (5 mg) by mouth once daily. Flonase Allergy Relief 50 mcg/actuation nasal spray Administer 2 sprays into each nostril every 12 hours. gabapentin (Neurontin) 400 mg capsule Take 1 capsule (400 mg) by mouth 3 times a day. hydrOXYzine HCL (Atarax) 10 mg tablet Take 1 tablet (10 mg) by mouth once daily as needed. magnesium oxide (Mag-Ox) 400 mg (241.3 mg magnesium) tablet Take 1 tablet (400 mg) by mouth early in the morning.. omega 4-qvi-pyb-fish oil (Fish OiL) 1,000 mg (120 mg-180 mg) capsule Take 1 capsule (1,000 mg) by mouth once every 24 hours. orphenadrine (Norflex) 100 mg 12 hr tablet Take 1 tablet (100 mg) by mouth once daily. teriflunomide (Aubagio) 14 mg tablet tablet Take 1 tablet (14 mg) by mouth once daily. trospium (Sanctura) 20 mg tablet Take 1 tablet (20 mg) by mouth 2 times a day. Current Facility-Administered Medications Medication Dose Route Frequency Provider Last Rate Last Admin lactated Ringer's infusion 20 mL/hr intravenous Continuous Lamin ReddingDO Lamin DO [facility] Work Phone: [phone] Nurse Note* Jluis Silveira RN - 02/03/2024 12:33 PM EDT It was a pleasure taking care of you today! -Paul S [facility] Work Phone: [phone]) [phone] Nurse Note* Jluis Silveira RN - 02/03/2024 12:33 PM EDT It was a pleasure taking care of you today! -Paul S [facility] Work Phone: [phone]) 607-170509-10-2024 Telephone encounter Note* Telephone Encounter - Vanessa Suarez - 01/20/2024 10:02 AM EDT Patient phones requesting refills as follows: Requested Prescriptions Pending Prescriptions Disp Refills trospium (SANCTURA) 20 mg tablet 60 tablet 3 Sig: Take 1 tablet by mouth two times a day. [id number] Patient can be reached at [phone] [facility]09-10-2024 Miscellaneous Notes* Telephone Encounter - Vanessa Suarez - 01/20/2024 10:02 AM EDT Patient phones requesting refills as follows: Requested Prescriptions Pending Prescriptions Disp Refills trospium (SANCTURA) 20 mg tablet 60 tablet 3 Sig: Take 1 tablet by mouth two times a day. [place] [id number] [id number] Patient can be reached at [phone] [facility]04-[facility]-2024 Instructions* Patient Instructions* Dimple Salazar APRN.CNP - 08/19/2023 2:25 PM EDT 3 complete day voiding diary start trospium 20 mg twice daily documented in this [facility]Wilson [facility] History of Present illness Narrative* Dimple Salazar APRN.CNP - 08/19/2023 2:04 PM EDT Socorro Grace is a 57 year old female who presents today for evaluation of Patient presents with: New Patient: Hospital follow up/urinary frequency CHIEF COMPLAINT & HISTORY OF PRESENT ILLNESS CC: leakage 57 year old female with a history of MS presents for reports of urinary urge incontinence and leakage without warning. Onset years ago with worsening 2 years ago. Past use of desmopressin by his MS provider, she developed hyponatremia Past PFPT and kegels Denies frequent uti Denies gross hematuria PVR 0 cc DTF: every 1.5-2.0 hours NTF: 3 times URGENCY:yes UUI:yes DEVIN:rare STRAINING:no COMPLETE EMPTYING:yes PADS PER DAY: 2-3 depends per day, not always soaked FLUID INTAKE: water 80 ounces 1 cup of coffee in the morning Some leakage during intercourse and dyspareunia vaginal deliveries s/p hysterectomy for endometriosis Past Urological History: Stones:no Surgery:no Tumors:no Infections:no VITALS: Height 167.6 cm (5' 6), weight 72.6 kg (160 lb). ALLERGIES: Seasonal Allergies and Penicillins MEDICATIONS: Current Outpatient Medications Medication Sig Dispense Refill alendronate (FOSAMAX) 70 mg tablet TAKE 1 TABLET BY MOUTH ONCE A WEEK BEFORE THE FIRST FOOD, BEVERAGE OR MEDICINE OF THE DAY WITH PLAIN WATER magnesium oxide 400 mg magnesium tab hydrOXYzine HCl (ATARAX) 10 mg tablet Take 10 mg by mouth once daily. teriflunomide (AUBAGIO) 14 mg tablet Take 14 mg by mouth once daily. ascorbic acid, vitamin C, 500 mg cap Take 500 mg by mouth once daily. mecobalamin, vitamin B12, 1,000 mcg chew Take by mouth. multivitamin with minerals (VISION/OPTIGEN) tablet Take by mouth. escitalopram oxalate (LEXAPRO) 20 mg tablet Take 1 tablet by mouth once daily. 90 tablet 3 ondansetron (ZOFRAN) 4 mg tablet Take 1 tablet by mouth every 8 hours as needed. 20 tablet 0 fluticasone (FLONASE) 50 mcg/actuation nasal spray SPRAY 1 SPRAY INTO EACH NOSTRIL EVERY DAY 16 mL 5 Cholecalciferol, Vitamin D3, 5,000 unit cap Take 5,000 Units by mouth once daily. SUMAtriptan (IMITREX) 100 mg tablet Take 1 tablet (100 mg) by mouth as needed for migraine headache(see administration instructions). at onset of headache.May repeat after 2 hours. 9 tablet 0 gabapentin (NEURONTIN) 400 mg capsule TAKE 1 CAPSULE BY MOUTH THREE TIMES DAILY FOR 90 DAYS. 90 capsule 2 ALAWAY 0.025 % (0.035 %) ophthalmic solution USE 1 DROP IN BOTH EYES TWICE DAILY. IN AFFECTED EYE(S). 10 mL 2 Ferrous Gluconate 240 mg (27 mg iron) tablet TAKE 1 TABLET BY MOUTH EVERY DAY IN THE MORNING 2 melatonin 10 mg cap Take 1 capsule by mouth daily at bedtime. 2 No current facility-administered medications for this visit. SOCIAL HISTORY: Social History Tobacco Use Smoking status: Every Day Packs/day: 0.25 Years: 13.00 Additional pack years: 0.00 Total pack years: 3.25 Types: Cigarettes Start date: 1979 Last attempt to quit: 1992 Years since quittin.2 Smokeless tobacco: Never Tobacco comments: 1 cig per week - recreational Substance Use Topics Alcohol use: Yes Comment: once a night Drug use: No PAST MEDICAL HISTORY: PAST MEDICAL HISTORY Diagnosis Date Depression SOCORRO (generalized anxiety disorder) Headache in front of head 07/27/2023 Possibly due to UTI with E. coli, also it is in a sinus distribution for the headache and may be new onset migraine but since this is the first time its happened to her diagnosis of migraine cannot be made with certainty. MS (multiple sclerosis) ([facility]) 2006 Dr. Buckley Osteopenia hip, spine. BMD 03/29 S/P hysterectomy LAYNE/BSO - endometriosis Snoring normal sleep study. on flonase Vitamin D deficiency PAST SURGICAL HISTORY: PAST SURGICAL HISTORY Procedure Laterality Date COLONOSCOPY 11/23/2013 - repeat 5 years - reminder created TOTAL ABDOMINAL HYSTERECT W/WO RMVL TUBE OVARY 05/12/1999 appendix with LAYNE/BSO for endometriosis FAMILY HISTORY: FAMILY HISTORY Problem Relation Age of Onset Diabetes Father Colon Cancer Father 60's, partial colectomy Heart Attack Father other (stents) Father Arthritis Mother other (migraines) Mother other (hsp) Daughter nephritis other (migraines) Daughter Colon Cancer Maternal Grandfather Ovarian cancer Sister 40's 1/2 other (hepatitis C) Sister No Ocular Disease Other All histories reviewed on this date 08/19/2023: Yes REVIEW OF SYSTEMS: CONSTITUTIONAL: Patient reports no recent fever or weight loss CARDIOVASCULAR: Negative for chest pain. RESPIRATORY: Negative for cough, hemoptysis, wheezing, COPD, dyspnea or shortness of breath GI: No nausea, vomiting, or diarrhea MUSCULOSKELETAL: +MS SKIN: Negative for lesions, rash, and itching PSYCH: Negative for sleep disturbance, mood disorder and recent psychosocial stressors. HEMATOLOGY/LYMPHOLOGY Negative for prolonged bleeding, bruising easily or swollen nodes ENDOCRINE: Negative for cold or heat intolerance, polyuria, polydipsia and goiter All other systems reviewed and are negative other than HPI. PHYSICAL EXAM: constitutional: appears healthy in no acute distress respiratory: normal respiratory motion gu: bladder: not palpable, no tenderness. pelvic at next visit, patient did not want to take off her leg brace Neuro: Gait normal. Sensation grossly intact. RADIOLOGY REPORTS REVIEWED: Yes LAB RESULTS REVIEWED: Yes Latest Ref Rng 08/19/2023 GLUCOSE UA (POCT) Negative mg/dL Negative BILIRUBIN UA (POCT) Negative Negative KETONE UA (POCT) Negative mg/dL Negative SPECIFIC GRAVITY UA (POCT) 1.005 - 1.030 1.015 HEMOGLOBIN/BLOOD UA (POCT) Negative Negative PH UA (POCT) 4.5 - 8.0 6.5 PROTEIN UA (POCT) Negative mg/dL Negative UROBILINOGEN UA (POCT) Normal E.U./dL 0.2 NITRITE UA (POCT) Negative Negative LEUKOCYTES UA (POCT) Negative Negative COLOR UA (POCT) Yellow CLARITY UA (POCT) Clear IMAGING STUDIES INDEPENDENTLY REVIEWED: No OLD RECORDS REVIEWED: Yes: Extensive: No ASSESSMENT/PLAN: 1. OAB (overactive bladder) - ICD9: 596.51, ICD10: N32.81 (primary diagnosis) -PVR 0 cc -continue with kegels, declined PFPT at this time -start trospium 20 mg po bid, side effects discussed -complete 3 day voiding diary, based on results she may need to decrease her fluid intake -PVR 0 cc -follow up in 6 weeks 2. Urge incontinence - ICD9: 788.31, ICD10: N39.41 -see above 3. Multiple sclerosis (HCC) - ICD9: 340, ICD10: G35 -noted Patient is instructed to schedule a follow up in 6 weeks. Dimple Salazar APRN.DIRECTOR REGULATORY COMPLIANCE documented in this [facility]Wilson [facility]04-09-2024 Nurse Note* Pennie Guerrero MA - 08/19/2023 1:39 PM EDT Post void bladder scan completed. 0 ml residual remaining. Results reported to Dimple Salazar CNP documented in this encounterWilson [address] [facility]03-21-2024 Miscellaneous Notes* Telephone Encounter - Joaqumi Zimmerman RN - 07/31/2023 9:55 AM EDT PATIENT INFORMATION Record ID: [id number] Patient Name: [facility]: [place]: [facility] Attending: Marius[address] Jr Center: Hospital Medicine INSTRUCTIONS MA to remind patient of next upcoming appointment date, time, location All Clear All Clear SURVEY INFORMATION Medical/Nurse Programs Director: Joaquim Zimmerman 1. Your discharge instructions are important in guiding you through the recovery process. Is there anything I could help you clarify on your discharge instructions? (Standard Question) Yes 2. We encourage a follow up appointment with your physician. Do you have one scheduled? If not; What is the name of the doctor you should be seeing for your follow-up care? (Standard Question) Yes 4. Have you experienced any side-effects that may be from your medications? (Red Flag Question) No 3. Many patients have concerns about their medications once they are home. Do you have any questions about getting or taking your medications? (Standard Question) No 5. Do you have any new or worsening symptoms? (Standard Question) No documented in this [facility]Wilson [facility]03-18-2024 NoteHNO ID: [id number] Author: MAVIS STEINER RN Service: Care Management Author Type: Registered Nurse Type: Care Mgt Initial Assessment Filed: 07/28/2023 08:48 Note Text: CARE MANAGEMENT: ASSESSMENT AND DISCHARGE PLAN SERVICE DATE: July 28, 2023 SERVICE TIME: 8:12 AM PCP: Agustina Stacy MD - Confirmed. Primary Contact: Extended Emergency Contact Information Primary Emergency Contact: Destiny Grace Address: [address] [place] [address] Mobile Relation: Spouse Admission Status: Inpatient Insurance Provider: BLUE CARD PPO OOS Discharge Planning requested by: Per Department Practice Potential Transition Plans Home Advance Directives Current Advance Directive: Health Care Power of Habilitation Specialist;Living Will In Chart: No Current Living Arrangements and Support Lives with: Spouse/significant other Type of Residence: Private Residence (House) Does the patient have to climb stairs at home?: Yes Support: Children, Spouse/significant other, Family members How do you manage to accomplish the following: Independent: Ambulation;Bathe/Shower;Dress;Meals/Meal Prep;Going to the bathroom;Medication Management Needs Assistance: Meals/Meal Prep;Bathe/Shower;Dress;Going to the bathroom Dependent: Transportation to appointments/community Current Services/Equipment Current Post-Acute Service(s): DME Current DME Type: Cane Discharge Planning Patient Goal(s): Be able to go home, General wellness [place] of Choice Explained: [place] of Choice Given: No Reason Not Given: No placements necessary Are you interested in bedside delivery of your medications? No Preferred outpatient pharmacy [facility] Discharge Planning Participant(s): Patient Patient/Family Comments: Caregiver Assessment: Caregiver is ready, willing and able to meet the patient's needs as recommended by the inter-professional team: Yes Name of Caregiver: Family Transport at Discharge: Transportation Arrangements: Car Needs Prior to Discharge: Needs Prior to Discharge: To Be Determined Post-Acute Discharge Plan: CM met at bedside with patient, introduced self and role. Pt is 57 y/o, admit Dx hyponatremia. Patient resides in a multilevel house with her . Mostly IPTA, helps if she needs it. Presented to ED with headache, had recently started DDAVP to help with stress incontinence. Work up found her to be hyponatremic. DDAVP stopped, hyponatremia improved. On RA. Pt is AANDO X 3. Patient hopeful she can go home today. Daughter will transport. CM instructed patient that CM team will remain available for any dc needs. SIGNATURE: Mavis Steiner RN PATIENT NAME: Socorro Grace DATE: July 28, 2023 TIME: 8:45 AM CONTACT #: [phone] NoteHNO ID: [id number] Author: SANTIAGO BOOKER MD Service: Hospital Medicine Author Type: Physician Type: Progress Notes Filed: 07/30/2023 10:48 Note Text: ADDENDUM: I did not formally assessed this. She had hyponatremia and that flattens the affect. I would agree with the family practice assessment that this was partial remission she has major depression. Santiago Booker MD July 30, 2023 10:47 AM DEPARTMENT OF HOSPITAL MEDICINE PROGRESS NOTE SERVICE DATE: 07/27/2023 SERVICE TIME: 12:15 PM Hospital Medicine/Primary Attending: Santiago Booker MD NIGHT AND WEEKEND COVERAGE: [place] COVERAGE: Nights: [phone], please page [facility] Night coverage pager [phone]. Reason for Admission: Hyponatremia after starting DDAVP with severe headache INTERVAL HPI: Patient's sodium normalized stopping the DDAVP which had just been started 3 days prior to admission. It was sent in by her neurologist for polyuria so the patient would not be incontinence when going for walks. The patient headache was relieved with Compazine and Benadryl but came back she did not take anymore the headache medication. Cultures are pending The differential on her has new onset migraine versus sinusitis versus E. coli UTI she did have some white cells in her urine and headache is associated with E. coli infections. CHECK LIST Goal for glucose 100-180 At goal Cultures negative thus far other than those noted:None Vital signs: Reviewed labs Problem list reviewed Medication list reviewed Reviewed new notes Probable discharge- ASSESSMENT/PLAN Stopping DDAVP and now can stop every 4 hours sodiums-and fluid restriction For the headache will give her every 6 hour Compazine and Benadryl first 3 rounds along with 2 g of magnesium and 10 mg of Decadron Ceftriaxone until after blood urine cultures are back and if headache does not resolve with headache cocktail would probably treat her for sinus as the locations seem to be referable areas for ethmoid sinuses and if urine culture is positive usually 3 to 4 days on antibiotics before the headache goes away. Consultants: PROCEDURES: NONE Disposition: Home EK07/26/2023 sinus rhythm borderline QTc similar to EKG 05/10/2011 at that time QTc was 458 and measuring she is still slightly under 500 Echocardiogram: None Recent Labs 07/26/23 0650 WBC 8.23 RBC 4.89 HB 14.4 HCT 41.2 PLT 215 MCV 84.3 MCH 29.4 MPV 9.3 ABSNEUT 6.73 NEUTP 81.8 LYMPHP 7.0 MONOP 9.4 EODINP 1.2 Recent Labs 07/27/23 0543 07/26/23 1531 07/26/23 0751 GLUC 102* 108* 101* Recent Labs 07/27/23 1145 07/27/23 0543 07/27/23 0108 07/26/23 2115 07/26/23 1531 07/26/23 0751 07/26/23 0650 NA 138 137 136 < > 130* 120* 123* K -- 4.1 -- -- -- 3.9 4.1 CHLOR -- 106* -- -- 99 85* 87* CO2 -- 21* -- -- 20* 21* 19* ANION -- 10 -- -- 11 14 17 < > = values in this interval not displayed. Recent Labs 07/27/23 0543 07/26/23 1531 07/26/23 0751 BUN 11 7 4* CREAT 0.66 0.54* 0.47* CA 8.6 8.3* 8.7 P 2.6* -- -- Most recent labs HOSPITAL COURSE: Socorro Grace is a 57 year old female presented with past medical history of multiple sclerosis with polyuria, left hemiparesis secondary to MS, presenting with headache to the ED with the finding of hyponatremia when laboratory studies were checked. Sodium level is 120. The headache started on 07/20 throbbing bitemporal headache she was having urinary frequency and her neurologist started her on DDAVP for the polyuria because she was being incontinent with urine. The patient has multiple sclerosis and as a baseline has some mild left arm weakness with more left leg weakness and some bladder incontinence the hemiparesis is because of plaques from the multiple sclerosis. The patient in reviewing prior values had not been hyponatremic and the DDAVP is probably doing that. She had some white cells in her urine and E. coli can cause fairly severe headache she also had a URI for about 3 weeks and has referral areas that would indicate sinus involvement with her migraine as she has photophobia or sinus infection potentially causing the headache. She is excepted at [facility] and transferred to the medical floor and on arrival urine cultures obtained along with blood cultures and starting her on ceftriaxone. Studies are sent for [facility] and she is Placed on 1200 cc fluid restriction and IV fluids stopped until we see her urine sodium. 07/26 headache was initially relieved the evening before by Compazine and Benadryl getting that again along with Decadron as this is been recurrent thing for about 5 days or 6 even and neuroexam is at her baseline and sodium is normal. It was okay to correct this order more quickly as we do she did not have hyponatremia as a baseline and the DDAVP had just been started on 2 days before admission. Patient is in agreement with the plan and will proceed with reevaluation (more content not included)...[id number] History of Past illness Narrative* Problem Noted Date Diagnosed Date Resolved Date Hyponatremia 07/26/2023 07/27/2023 Colon cancer screening 10/21/201712/19 Overview: Added automatically from request for surgery [id number] Hormone replacement therapy 11/09/2013 12/19/2017 MS (multiple sclerosis) 05/12/200612/10 Tobacco abuse 12/19/2017 Overview: one cig/week. Tobacco abuse 01/02/2021 Overview: rarely documented as of this encounter (statuses as of 07/31/2023) [facility]03-16-2024 History of Past illness Narrative* Problem Noted Date Diagnosed Date Resolved Date Hyponatremia 07/26/2023 07/27/2023 Colon cancer screening 10/21/201712/19 Overview: Added automatically from request for surgery [id number] Hormone replacement therapy 11/09/2013 12/19/2017 MS (multiple sclerosis) 05/12/200612/10 Tobacco abuse 12/19/2017 Overview: one cig/week. Tobacco abuse 01/02/2021 Overview: rarely documented as of this encounter (statuses as of 08/20/2023) [facility]02-20-2023 NoteMessage SOCORRO GRACE was (D/C)- last seen: 04/17/23. Pt is d/c from therapy at this time and will require a new order/evaluation to continue. Signatures Electronically signed by : TANIA Gutierrez/Lesley; Jul 01 2022 8:08AM EST (Author) [id number] History of Present illness Narrative* Patient confirmed name and date of this session. * Pt arrives with updated script for the same issues being addressed previously. She has not attendedPT services since 05/01/22 and all objective info today is compared to her most previous recheck 03/28/22. * Ms. Grace arrives today with limitations in balance and strength which are similar to her last recheck. Her AFO does appear slightly too narrow as she does have a low arch with flat feet on the L. Educated pt on benefit of AFO vs brace especially with L foot eversion and dorsiflexion, which are both very weak. Pt recommended to utilize [employer] for a custom AFO and to obtain brace over the counter. PT plans to contact physician for script for AFO. Pt will benefit from skilled PT to addressLE strength and balance as well as learn to mobilize with AFO to improve gait mechanics and safety in the community. Pt with agreement and understanding. [facility] Work Phone: 1([phone]) 618-524108-26-2022 History of Present illness Narrative* Patient confirmed name and date of this session. * Ms. Grace is progressing well through their POC addressing spasms of L hemibody d/t MS. Diane has attended 3 sessions since 01/04/22 with many cancelled appts which is a barrier to progress. The pt demonstrates and verbalizes improvements in UE strength and balance. She demos improved gait mechanics wi AFO and was educated on benefits of using one however impairments in strength, balance, and gaitpersist d/t Pt is going to call dr for OT script Friday. The pt will benefit from continued skilled PT services 1x/week for 4 weeks to address the above stated impairments and functional limitations to maximize participation and ease in household, social, and work related activities. Plan to focus on ther ex, neuro re-ed, and gait training. Pt verbalized understanding and agreement to goals and POC. Thank you for this referral and please call [phone] with any questions or concerns. [facility] Work Phone: 1([phone]) 547-785708-26-2022 History of Present illness Narrative* Patient confirmed name and date of this session. * Ms. Grace is progressing well through their POC addressing spasms of L hemibody d/t MS. Diane has attended PT sessions since 01/04/22. The pt demonstrates and verbalizes improvements in LE strength, balance, and safety with gait. She does still demo slight weakness of BLE and imbalance which is causing decreased safety with walking and ADLs. The pt will benefit from continued skilled PT services to address the above stated impairments and functional limitations to maximize participation and ease in household, social, and work related activities. Plan to focus mainly on neuro re-ed with some functional ther ex and gait training. Pt verbalized understanding and agreement to goals and POC. Thank you for this referral and please call [phone] with any questions or concerns. * She will be continuing with OT. * During STS pt demos R foot behind L therefore cues to put feet even which she demos greater difficulty with. Pt educated that when the L foot is even with R or further back it is causing it to work more. [facility] Work Phone: [phone]) 572-125608-26-2022 History of Present illness Narrative* Patient confirmed name and date of this session. * Ms. Grace is progressing well through their POC addressing spasms of L hemibody d/t MS. Diane has attended PT sessions since 01/04/22. She has only attended 1 PT session since last recheck therefore full recheck not performed today. Strength and balance with exercises is similar to last recheck however she is able to perform STS transfer with significantly more ease now and feet even. She does stilldemo functional weakness and impaired balance which are impairing her gait also. For this reason she will benefit from skilled PT services with focus on neuro re-ed and functional strength to help with floor transfers. [facility] Work Phone: Evaluation noteNo assessment information available [facility] Work Phone: Evaluation note* Diagnosis Onset Date Resolution Status Multiple sclerosis noneactiv e Abnormality of gait and mobility acute Multiple sclerosis noneactiv e [facility] Work Phone: Evaluation note* Diagnosis Onset Date Resolution Status Abnormality of gait and mobility acute Multiple sclerosis noneactiv e [facility] Work Phone: Evaluation note* Diagnosis Onset Date Resolution Status Abnormality of gait and mobility chronic Contracture of ankle involving calcaneus chronic Contracture of muscle, left upper arm chronic History of vitamin D deficiency resolved Multiple sclerosis noneactiv e [facility] Work Phone: Evaluation note* Diagnosis Onset Date Resolution Status Multiple sclerosis noneactiv e [facility] Work Phone: Evaluation note* Diagnosis OAB (overactive bladder)- Primary Hypertonicity of bladder Urge incontinence Multiple sclerosis (HCC) [facility] OAB (overactive bladder) Hypertonicity of bladder Urge incontinence [facility] Diagnosis Age-related osteoporosis without current pathological fracture documented in this encounter [facility] Work Phone: Evaluation note* Diagnosis Encounter for screening mammogram for malignant neoplasm of breast documented in this encounter [facility] Work Phone: Evaluation note* Diagnosis TMJ dysfunction- Primary Unspecified temporomandibular joint disorders documented in this encounter [facility] Work Phone: Evaluation note* Diagnosis Colon cancer screening Special screening for malignant neoplasms, colon History of colon polyps documented in this encounter [facility] Work Phone: Evaluation note* Diagnosis OAB (overactive bladder)- Primary Hypertonicity of bladder Screening for genitourinary condition Screening for other and unspecified genitourinary condition Multiple sclerosis (HCC) Multiple sclerosis Urge incontinence [facility] Diagnosis MS (multiple sclerosis) (Multi)- Primary Multiple sclerosis Persistent depressive disorder Osteopenia, unspecified location documented in this encounter [facility] Work Phone: Evaluation note* Diagnosis Hyponatremia- Primary Hyposmolality and/or hyponatremia Hemiparesis, left (Multi) Unspecified hemiplegia affecting unspecified side Syncope, unspecified syncope type documented in this encounter [facility] Work Phone: Evaluation note* Diagnosis Syncope, unspecified syncope type documented in this encounter [facility] Work Phone: Evaluation note* Diagnosis OAB (overactive bladder)- Primary Hypertonicity of bladder Multiple sclerosis (HCC) Multiple sclerosis [facility]* Ms. Grace arrives to outpatient PT with s/s consistent with c/o spasms of L hemibody d/t MS. Pt pre sents with the following impairments: impaired balance, impaired gait, tightness of LUE and LLE, weakness of LUE and LLE. These impairments contribute to difficulty in activity limitations and participation restrictions including stair negotiation, ambulation, household duties, yardwork. The pt will benefit from skilled PT services 2x/week for 8 weeks to address the above stated impairments and functional limitations to maximize participation and ease in household and social related activities.OT order requested so OT can focus on UE and PT can focus on LE and balance. The pt has a good prognosis when considering positive factors including age and motivation with barriers such as progressive nature of MS. The pt verbalized understanding and agreement to goals and POC. Thank you for this referral and please call [phone] with any questions or concerns. * Clinical Presentation: Stable and/or uncomplicated characteristics. * Level of Complexity: low * Problem List: activity limitations, ADLs/IADLs/self care skills, balance, decreased functional level, decreased knowledge of HEP, fall risk, flexibility, gait/locomotion, participation restrictions, strength and transfers. [facility] Work Phone: History of Present illness NarrativePatient was identified by name and date. MET performed to correct +L anterior rotation. Progressed core stability and LE PREs this session with c/o fatigue only. Instructed in self massage techniques with roller bar and thera cane and sheet given on pelvic floor and TrA sets. to cont at home.She voiced good under]standing. [facility] Work Phone: History of Present illness NarrativePatient confirmed name and date of this session. Patient demonstrates symmetry with pelvis symmetry check. Patient able to increase reps with min fatigue noted. Difficulty lifting L LE as high as R with SLR. Added some standing LE strengthening exercises to challenge balance and strength, fair tolerance. [facility] Work Phone: Hisvpwk of Present illness Narrative* Patient identified by name and * Patient tolerates treatment with mild difficulty. Demo's weakness in Bilat LE's but demo's weaknessin LLE compared to RLE. Demo's good tolerance to supine exercises and tolerates SLR in partial range. [facility] Work Phone: Histhgi of Present illness Narrative* SOCORRO GRACE was evaluated today for signs and symptoms of multiple sclerosis resulting in contracture of LUE. SOCORRO presents with deficits in ROM, FMC, strength, ADLs/IADLs as indicated by quickdash. SOCORRO would benefit from regular outpatient 2x per week but pt reports difficulty getting to appointments more than 1 time per week. Pt demonstrates need for skilled OT services in order to improve AROM/PROM, strengthening, coordination and activity tolerance to improve functional independence in ADLs/IADLs/work tasks. SOCORRO GRACE presents with fair prognosis considering supportive factors such as family, age and PLOF with consideration of progressive nature of disease. SOCORRO GRACE presents with good understanding and teach back of today's education and provides input into goals/POC. * Interdisciplinary Team Communication: occupational therapy and physical therapy . * Clinical Presentation: evolving with changing characteristics * Level of Complexity: low * Problems To Be Addressed: decreased ADL performance, decreased IADL performance, decreased play/leisure performance, decreased work, decreased rest/sleep, decreased social participation, decreased coordination, decreased knowledge of precautions, decreased knowledge of HEP, pain, decreased ROM/joint mobility, decreased strength, impaired sensation/sensibility, decreased balance, decreased transfers, impaired motor function/control/tone and fall risk. [facility] Work Phone: History of Present illness NarrativePt unable to provide enough force to open the tennis ball mouth after first trial, ended task early. Pt demos ability to extend fingers in yellow putty and pick out pegs, pt does demo weakness in DIPand PIP joints of digits with some increased flexion with task. Pt demos difficulty with HEP with pink putty this date. Educated on continuing to do them, even if they are extremely difficult. [facility] Work Phone: History of Present illness Narrative* SOCORRO GRACE was evaluated today for muscle weakness of LUE s/t multiple sclerosis . SOCORRO presents with deficits in warp picker strength, FMC, ADLs/IADLs as indicated by quickdash. SOCORRO would benefit from regular outpatient OT x1 / 2 weeks for 8 weeks in order to improve AROM/PROM, strengthening, coordination, scar management and activity tolerance to improve functional independence in ADLs/IADLs. Pt was previously seen for signs and symptoms of this condition and demonstrated good progression toward goals. SOCORRO GRACE presents with good prognosis considering supportive factors such as level of motivation and presentation of symptoms with consideration of progression of disease SOCORRO GRACE presents withgood understanding and teach back of today's education and provides input into goals/POC. * Interdisciplinary Team Communication: occupational therapy . * Clinical Presentation: evolving with changing characteristics * Problems To Be Addressed: decreased ADL performance, decreased IADL performance, decreased rest/sleep, decreased coordination, decreased motor skills, decreased knowledge of HEP, decreased ROM/joint mobility, decreased strength and fall risk. [facility] Work Phone: History of Present illness Narrative* Patient confirmed name and date of this session. Gait belt throughout session. * Pt requires intermittent UE support during all activities d/t balance deficits. During squats and leg press pt tends to put more weight on RLE vs LLE despite VCs. STS with LLE further back than R to target L strengthening. [facility] Work Phone: History of Present illness NarrativePt demos significant difficulty with pegs this date, having to put them down muitpple times to adjsut in hand placement. Pt demos significant difficulty with HH activity this date, only stacking x2 blocks.[facility] Work Phone: History of Present illness NarrativePt reporting need for hot pack to increase muscle ROM prior to activity. Pt demos need for increased time for wooden peg placement. Pt demos need for activity modification with HH.[facility] Work Phone: History of Present illness Narrative* Patient confirmed name and date of this session. * Pt with extreme difficulty with TRX SL squats on LLE d/t weakness and balance- min A required whileperforming. She demos good eccentric control throughout. VCs to allow equal WBing with tall kneel hip ext, squat, and leg press as she tends to WB mainly on RLE. [facility] Work Phone: History of Present illness NarrativePt demos difficulty with light orange resistance this date but demos ability to complete HEP. Pt requires repositioning each time on SHR for fingers d/t curling with sup/pro.[facility] Work Phone: History of Present illness Narrative* Patient confirmed name and date of this session. * Focus of treatment today on Neuromuscular Re-education in the [facility] for balance, proprioception and gait training. Patient completed fwd/bkwd/lat walking with moderate difficulty advancing the LEs andkeeping up to speed w/ the mph. Patient moderately challenged with lateral hurdles on the L leg, dif ficulty picking up leg to bring it back to neutral. Moderate ankle instability w/ kicking a ball and cone taps/color taps. Overall patient progressed well w/ treatment in [facility] and was able to performmore difficult balance activities w/ less fear of falling. * Treatment provided by ALFONZO Santos under the direct supervision of Monik Mar PT. [facility] Work Phone: Hospital Discharge instructions* Attachments The following attachments cannot be sent through Care Everywhere. * Temporomandibular Joint (TMJ) Disorders Discharge Instructions (Ivorian) [facility] Work Phone: Reason for referral (narrative)No reason for referral information availableWOhio State [facility] Work Phone: Reason for visit Narrative* Initial Evaluation . Dx: G35, R26.9, M24.573. * Referred by: Gerald [facility] Work Phone: Reason for visit Narrative* Cardiac Stress Testing (Routine) - Pending Review Specialty Diagnoses / Procedures Referred By Darius t Referred To Contact Cardiology Diagnoses Syncope, unspecified syncope type Procedures Holter or Event Compliance Vice President Laisha Javier, VETERINARY LABORATORY DIAGNOSTICIAN-DIRECTOR REGULATORY COMPLIANCE [address] [facility], [place] [address] Phone: tel: fax: Referral ID Status Reason Start Date Expiration Date V isits Requested Visits Authorized [id number] Pending Review 08/27/2024 08/27/2025 1 1 [facility] Work Phone: Summary Purpose Family History No Family History Records Found Relationship Condition Age at Onset Recorded Date/T christel mother Arthritis Unknown father Malignant neoplasm of colon Unknown Diabetes mellitus Unknown Malignant melanoma Unknown daughter Kidney disorder Unknown sister Malignant neoplasm of ovary Unknown Seizure Unknown grandmother Parkinson's disease Unknown Unknown Family Member Name Dates Details Family history of diabetes m ellitus: Father(V18.0, Z83.3) Status:Active Family history of malignant neoplasm of colon: Father(V16.0, Z80.0) Status:Active Family history of Meniere's disease: Father(V19.3, Z83.52) Status:Active Unknown Family Member Name Dates Details Family history of diabetes m ellitus: Father(V18.0, Z83.3) Status:Active Family history of malignant neoplasm of colon: Father(V16.0, Z80.0) Status:Active Family history of Meniere's disease: Father(V19.3, Z83.52) Status:Active Unknown Family Member Name Dates Details Family history of diabetes m ellitus: Father(V18.0, Z83.3) Status:Active Family history of malignant neoplasm of colon: Father(V16.0, Z80.0) Status:Active Family history of Meniere's disease: Father(V19.3, Z83.52) Status:Active Unknown Family Member Name Dates Details Family history of diabetes m ellitus: Father(V18.0, Z83.3) Status:Active Family history of malignant neoplasm of colon: Father(V16.0, Z80.0) Status:Active Family history of Meniere's disease: Father(V19.3, Z83.52) Status:Active Unknown Family Member Name Dates Details Family history of Meniere's disease: Father(V19.3, Z83.52) Status:Active Family history of malignant neoplasm of colon: Father(V16.0, Z80.0) Status:Active Family history of diabetes m ellitus: Father(V18.0, Z83.3) Status:Active Unknown Family Member Name Dates Details Family history of diabetes m ellitus: Father(V18.0, Z83.3) Status:Active Family history of malignant neoplasm of colon: Father(V16.0, Z80.0) Status:Active Family history of Meniere's disease: Father(V19.3, Z83.52) Status:Active Unknown Family Member Name Dates Details Family history of diabetes m ellitus: Father(V18.0, Z83.3) Status:Active Family history of malignant neoplasm of colon: Father(V16.0, Z80.0) Status:Active Family history of Meniere's disease: Father(V19.3, Z83.52) Status:Active Unknown Family Member Name Dates Details Family history of diabetes m ellitus: Father(V18.0, Z83.3) Status:Active Family history of malignant neoplasm of colon: Father(V16.0, Z80.0) Status:Active Family history of Meniere's disease: Father(V19.3, Z83.52) Status:Active Unknown Family Member Name Dates Details Family history of diabetes m ellitus: Father(V18.0, Z83.3) Status:Active Family history of malignant neoplasm of colon: Father(V16.0, Z80.0) Status:Active Family history of Meniere's disease: Father(V19.3, Z83.52) Status:Active Unknown Family Member Name Dates Details Family history of diabetes m ellitus: Father(V18.0, Z83.3) Status:Active Family history of malignant neoplasm of colon: Father(V16.0, Z80.0) Status:Active Family history of Meniere's disease: Father(V19.3, Z83.52) Status:Active Unknown Family Member Name Dates Details Family history of Meniere's disease: Father(V19.3, Z83.52) Status:Active Family history of malignant neoplasm of colon: Father(V16.0, Z80.0) Status:Active Family history of diabetes m ellitus: Father(V18.0, Z83.3) Status:Active Unknown Family Member Name Dates Details Family history of diabetes m ellitus: Father(V18.0, Z83.3) Status:Active Family history of malignant neoplasm of colon: Father(V16.0, Z80.0) Status:Active Family history of Meniere's disease: Father(V19.3, Z83.52) Status:Active Unknown Family Member Name Dates Details Family history of diabetes m ellitus: Father(V18.0, Z83.3) Status:Active Family history of malignant neoplasm of colon: Father(V16.0, Z80.0) Status:Active Family history of Meniere's disease: Father(V19.3, Z83.52) Status:Active Unknown Family Member Name Dates Details Family history of diabetes m ellitus: Father(V18.0, Z83.3) Status:Active Family history of malignant neoplasm of colon: Father(V16.0, Z80.0) Status:Active Family history of Meniere's disease: Father(V19.3, Z83.52) Status:Active Unknown Family Member Name Dates Details Family history of diabetes m ellitus: Father(V18.0, Z83.3) Status:Active Family history of malignant neoplasm of colon: Father(V16.0, Z80.0) Status:Active Family history of Meniere's disease: Father(V19.3, Z83.52) Status:Active Unknown Family Member Name Dates Details Family history of diabetes m ellitus: Father(V18.0, Z83.3) Status:Active Family history of malignant neoplasm of colon: Father(V16.0, Z80.0) Status:Active Family history of Meniere's disease: Father(V19.3, Z83.52) Status:Active Unknown Family Member Name Dates Details Family history of diabetes m ellitus: Father(V18.0, Z83.3) Status:Active Family history of malignant neoplasm of colon: Father(V16.0, Z80.0) Status:Active Family history of Meniere's disease: Father(V19.3, Z83.52) Status:Active Unknown Family Member Name Dates Details Family history of diabetes m ellitus: Father(V18.0, Z83.3) Status:Active Family history of malignant neoplasm of colon: Father(V16.0, Z80.0) Status:Active Family history of Meniere's disease: Father(V19.3, Z83.52) Status:Active Unknown Family Member Name Dates Details Family history of Meniere's disease: Father(V19.3, Z83.52) Status:Active Family history of malignant neoplasm of colon: Father(V16.0, Z80.0) Status:Active Family history of diabetes m ellitus: Father(V18.0, Z83.3) Status:Active Unknown Family Member Name Dates Details Family history of diabetes m ellitus: Father(V18.0, Z83.3) Status:Active Family history of malignant neoplasm of colon: Father(V16.0, Z80.0) Status:Active Family history of Meniere's disease: Father(V19.3, Z83.52) Status:Active Advance Directives No Advanced Directives Records FoundNo Advanced Directives Records FoundNo Advanced Directives Records FoundNo Advanced Directives Records FoundNo Advanced Directives Records FoundNo Advanced Directives Records FoundNo Advanced Directives Records FoundNo Advanced Directives Records FoundNo Advanced Directives Records FoundNo Advanced Directives Records FoundNo Advanced Directives Records FoundNo Advanced Directives Records FoundNo Advanced Directives Records FoundNo Advanced Directives Records Found Chief Complaint and Reason for Visit Chief Complaint 3 M FU E ORDER EORDER 3 M FU Chief Complaint 3 M FU E ORDER EORDER 3 M FU E ORDER Chief Complaint 3 M FU E ORDER 3 M FU EORDER Reason for Visit Multiple sclerosis Abnormality of gait and mobility Multiple sclerosis Chief Complaint E ORDER 3 M FU EORDER MULTIPLE SCLEROSIS MONITORING Reason for Visit Abnormality of gait and mobility Multiple sclerosis Chief Complaint 4 M FU E-ORDER Reason for Visit Abnormality of gait and mobility Contracture of ankle involving calcaneus Contracture of muscle, left upper arm History of vitamin D deficiency Multiple sclerosis Chief Complaint HEMANGIOMA OF OTHER SITES Chief Complaint 6 M FU MS Reason for Visit Multiple sclerosis Chief Complaint Admit Date MS April 19, 2024 4 :11pm 6 M FU May 31, 2024 1 :49pm MULTIPLE SCLEROSIS MONITORING June 132024 3:22pm Reason for Visit Admit Date Edema May 31, 2024 1 :49pm Fatigue May 31, 2024 1 :49pm Left-sided trigeminal neuralgia May 31, 2024 1:49pm Multiple sclerosis May 31, 2024 1 :49pm History of vitamin D deficiency May 31, 2024 1:49pm Chief Complaint Admit Date 6 M FU May 31, 2024 1 :49pm MULTIPLE SCLEROSIS MONITORING June 132024 3:22pm 4 M FU September 13, 2024 2:59pm Reason for Visit Admit Date Edema May 31, 2024 1 :49pm Fatigue May 31, 2024 1 :49pm Left-sided trigeminal neuralgia May 31, 2024 1:49pm Multiple sclerosis May 31, 2024 1 :49pm History of vitamin D deficiency May 31, 2024 1:49pm Edema September 13, 2024 2:59pm Fatigue September 13, 2024 2:59pm History of varicose veins September 13, 2024 2:59pm Left-sided trigeminal neuralgia September 13, 2024 2:59pm Multiple sclerosis September 13, 2024 2:59pm History of vitamin D deficiency September 13, 2024 2:59pm Chief Complaint Admit Date MULTIPLE SCLEROSIS MONITORING June 132024 3:22pm 4 M FU September 13, 2024 2:59pm Personal history of other diseases of e circulat September 27, 2024 1:54pm Reason for Visit Admit Date Edema September 13, 2024 2:59pm Fatigue September 13, 2024 2:59pm History of varicose veins September 13, 2024 2:59pm Left-sided trigeminal neuralgia September 13, 2024 2:59pm Multiple sclerosis September 13, 2024 2:59pm History of vitamin D deficiency September 13, 2024 2:59pm Chief Complaint Admit Date MULTIPLE SCLEROSIS MONITORING June 132024 3:22pm 4 M FU September 13, 2024 2:59pm Personal history of other diseases of e circulat September 27, 2024 1:54pm Concern of lack of circulation October 3:00pm Chief Complaint Admit Date 4 M FU September 13, 2024 2:59pm Personal history of other diseases of e circulat September 27, 2024 1:54pm Concern of lack of circulation October 3:00pm EORDERS October 29, 2024 3:54 pm Reason for Visit Admit Date Edema September 13, 2024 2:59pm Fatigue September 13, 2024 2:59pm History of varicose veins September 13, 2024 2:59pm Left-sided trigeminal neuralgia September 13, 2024 2:59pm Multiple sclerosis September 13, 2024 2:59pm History of vitamin D deficiency September 13, 2024 2:59pm 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 Ju 2024 3:00pm Venous insufficiency (chronic) (peripher al) October 29, 2024 3:00pm Reason for Referral Specialty Diagnoses / Procedures Referred By Darius rao Referred To Contact Radiology Diagnoses Age-related osteoporosis without current pathological fracture Procedures XR DEXA bone density Agustina Stacy MD [address] [place] [address] Riley [id number] Dexa [address] [place] [address] Referral ID Status Reason Start Date Expiration Date Visits Requested Visits Authorized [id number] Pending Review Perform Procedure 09/04/2023 09/03/2024 1 1 Specialty Diagnoses / Procedures Referred By Contac t Referred To Contact Radiology Diagnoses Encounter for screening mammogram for malignant neoplasm of breast Procedures BI mammo bilateral screening tomosynthesis Agustina Stacy MD [address] [place] [address] Referral ID Status Reason Start Date Expiration Date Visits Requested Visits Authorized [id number] Authorized Perform Procedure 09/04/2023 09/03/2024 1 1 Specialty Diagnoses / Procedures Referred By Contac t Referred To Contact Diagnoses TMJ dysfunction Andre Blancas, DO [address] [facility] [address] [place] [address] Referral ID Status Reason Start Date Expiration Date V isits Requested Visits Authorized [id number] Pending Review 12/26/2023 12/25/2024 1 1 Specialty Diagnoses / Procedures Referred By Contac t Referred To Contact Gastroenterology Diagnoses Colon cancer screening History of colon polyps Procedures Colonoscopy Screening; High Risk Patient RI COLONOSCOPY FLX DX W/COLLJ SPEC WHEN PFRMD RI COLON CA SCRN NOT HI RSK IND RI COLORECTAL SCRN; HI RISK IND RI COLONOSCOPY W/BIOPSY SINGLE/MULTIPLE RI COLSC FLX W/RMVL OF TUMOR POLYP LESION SNARE TQ RI COLSC FLX W/REMOVAL LESION BY HOT BX FORCEPS Lamin Redding, DO [address] [facility] [address] [place] [address] Referral ID Status Reason Start Date Expiration Date V isits Requested Visits Authorized [id number] Authorized 11/04/2023 11/03/2024 1 1 Additional Source Comments INFORMATION SOURCE (unrecogn ized section and content) DATE CREATED AUTHOR 10/04/2018 [facility] DATE CREATED AUTHOR AUTHOR'S ORGANIZ ATION 08/19/2019 [facility] DATE CREATED AUTHOR AUTHOR'S ORGANIZ ATION 05/10/2021 [facility] DATE CREATED AUTHOR AUTHOR'S ORGANIZ ATION 08/23/2022 [facility] DATE CREATED AUTHOR AUTHOR'S ORGANIZ ATION 01/18/2023 [facility] DATE CREATED AUTHOR AUTHOR'S ORGANIZ ATION 07/31/2023 [facility] DATE CREATED AUTHOR AUTHOR'S ORGANIZ ATION 12/29/2023 [facility] DATE CREATED AUTHOR AUTHOR'S ORGANIZ ATION 04/02/2024 [facility] DATE CREATED AUTHOR AUTHOR'S ORGANIZ ATION 04/13/2024 [facility] DATE CREATED AUTHOR AUTHOR'S ORGANIZ ATION 09/29/2024 [facility] DATE CREATED AUTHOR AUTHOR'S ORGANIZ ATION 11/07/2024 [facility] DATE CREATED AUTHOR AUTHOR'S ORGANIZ ATION 11/27/2024 [facility] DATE CREATED AUTHOR AUTHOR'S ORGANIZ ATION 12/02/2024 [facility] DATE CREATED AUTHOR AUTHOR'S ORGANIZ ATION 12/05/2024 [facility] Goals (unrecognized section and content) Goals may be documented in a n alternate sectionGoals may be documented in an alternate sectionGoals may be documented in an alternate sectionGoals may be documented in an alternate sectionGoals may be documented in an alternate sectionGoals may be documented in an alternate sectionGoals may be documented in an alternate sectionGoals may be documented in an alternate sectionGoals may be documented in an alternate sectionGoals may be documented in an alternate sectionGoals may be documented in an alternate sectionGoals may be documented in an alternate section Care Teams (unrecognized sec tion and content) Team Status: Active Member Role Status Dates AGUSTINA STACY Primary Care Provider Active Team Status: Inactive Member Role Status Dates Dr. Slade Duarte MD Attending Provider Active Team Status: Inactive Member Role Status Dates Slade Duarte MD Attending Provider, Referring Pro vider Active Team Status: Inactive Member Role Status Dates Dr. Slade Duarte MD Attending Provider, Referring Provider Active TAWANNA BERRIOS Primary Care Provider Active [employer] Relationship Specialty Start Date End Date Agustina Stacy MD [address] [place] [address] PCP - General Family Medicine 07/01/17 CeliaLarissa su PA-C [address] [place], [place] [id number] Neurology 01/28/18 [employer] Relationship Specialty Start Date End Date Agustina Stacy MD [address] [place] [address] PCP - General Family Medicine 07/01/17 Larissa Yang PA-C [address] [place], [place] [id number] Neurology 01/28/18 Team Status: Active Member Role Status Dates Out of Town Doctor Primary Care Provider Active Team Status: Inactive Member Role Status Dates Dr. Slade Duarte MD Attending Provider Active TAWANNA BERRIOS Primary Care Provider, Referring Provi nael Active Team Status: Inactive Member Role Status Dates Dr. Slaed Duarte MD Attending Provider, Referring Provider Active Out of Town Doctor Primary Care Provider Active [employer] Relationship Specialty Start Date End Date Agustina Stacy MD [address] [place] [address] PCP - General Family Medicine 07/01/17 Larissa Yang PA-C [address] [place] [address] Neurology 01/28/18 [employer] Relationship Specialty Start Date End Date Agustina Stacy MD [address] [place] [address] PCP - General Family Medicine 07/01/17 Larissa Yang PA-C [address] [place], [place] [id number] Neurology 01/28/18 [employer] Relationship Specialty Start Date End Date Agustina Stacy MD [address] [place] [address] PCP - General Family Medicine 01/20/23 [employer] Relationship Specialty Start Date End Date Agustina Stacy MD [address] [place] [address] PCP - General Family Medicine 01/20/23 [employer] Relationship Specialty Start Date End Date Agustina Stacy MD [address] [place] [address] PCP - General Family Medicine 07/01/17 Larissa Yang PA-C [address] [place], [place] [id number] Neurology 01/28/18 [employer] Relationship Specialty Start Date End Date Agustina Stacy MD [address] [place] [address] PCP - General 01/20/23 [employer] Relationship Specialty Start Date End Date Agustina Stacy MD [address] [place] [address] PCP - General 01/20/23 [employer] Relationship Specialty Start Date End Date Agustina Stacy MD [address] [place] [address] PCP - General Family Medicine 07/01/17 Larissa Yang PA-C [address] [place], [place] [id number] Neurology 01/28/18 [employer] Relationship Specialty Start Date End Date Agustina Stacy MD PCP - General Family Medicine 01/20/23 Team Status: Active Member Role Status Dates FRANCI Perez Primary Care Provider Active Team Status: Inactive Member Role Status Dates Dr. Slade Duarte MD Attending Provider Active Start: April 19, 2024 End: April 19, 2024 Dr. Slade Duarte MD Referring Provider Active Start: April 19, 2024 End: April 19, 2024 No Primary Care Physician Primary Care Provider Active Start: April 19, 2024 End: April 19, 2024 Team Status: Inactive Member Role Status Dates Out of [facility] Doctor Referring Provider Active Sta rt: May 31, 2024 End: May 31, 2024 Dr. Slade Duarte MD Attending Provider Active Start: May 31, 2024 End: May 31, 2024 No Primary Care Physician Primary Care Provider Active Start: May 31, 2024 End: May 31, 2024 Team Status: Inactive Member Role Status Dates Dr. Slade Duarte MD Attending Provider Active Start: July 02, 2024 End: July 02, 2024 Dr. Slade Duarte MD Referring Provider Active Start: July 02, 2024 End: July 02, 2024 FRANCI Perez Primary Care Provider Active Start: July 02, 2024 End: July 02, 2024 [employer] Relationship Specialty Start Date End Date Laisha Javier VETERINARY LABORATORY DIAGNOSTICIAN-DIRECTOR REGULATORY COMPLIANCE [address] [facility] [place] [address] PCP - General Family Medicine 06/07/24 Emma Verdin MD [address] [address] PCP - Gerardo BARNEY PCP 06/12/24 [employer] Relationship Specialty Start Date End Date Laisha Javier VETERINARY LABORATORY DIAGNOSTICIAN-DIRECTOR REGULATORY COMPLIANCE [address] [facility] [place] [address] PCP - General Family Medicine 06/07/24 Emma Verdin MD [address] [place] [address] PCP - Gerardo BARNEY PCP 06/12/24 Team Status: Inactive Member Role Status Dates No Primary Care Physician Referring Provider Active Start: September 13, 2024 End: September 13, 2024 Dr. Slade Duarte MD Attending Provider Active Start: September 13, 2024 End: September 13, 2024 Laisha Javier NP-C Primary Care Provider Active Start: September 13, 2024 End: September 13, 2024 Team Status: Inactive Member Role Status Dates TONY PerezC Primary Care Provider Active Start: September 13, 2024 End: September 13, 2024 Slade GUADALUPE MD Attending Provider Active Start: September 13, 2024 End: September 13, 2024 Team Status: Inactive Member Role Status Dates TONY PerezC Primary Care Provider Active Start: September 27, 2024 End: September 27, 2024 Dr. Slade Duarte MD Attending Provider Active Start: September 27, 2024 End: September 27, 2024 Dr. Slade Duarte MD Referring Provider Active Start: September 27, 2024 End: September 27, 2024 Team Status: Active Member Role Status Dates Laisha Javier NP-C Primary Care Provider Active Start: September 27, 2024 Dr. Ed Mas MD Attending Provider Active S tart: September 27, 2024 Team Status: Active Member Role Status Dates TONY PerezC Primary Care Provider Active Start: September 27, 2024 Dr. Ed Mas MD Attending Provider Active S tart: September 27, 2024 Dr. Slade Duarte MD Referring Provider Active Start: September 27, 2024 Team Status: Inactive Member Role Status Dates Laisha Javier NP-C Primary Care Provider Active Start: October 29, 2024 End: October 29, 2024 Laisha Javier NP-C Referring Provider Active St art: October 29, 2024 End: October 29, 2024 HOLLI Ramey Attending Provider Active Star t: October 29, 2024 End: October 29, 2024 Team Status: Inactive Member Role Status Dates FRANCI Perez Primary Care Provider Active Start: October 29, 2024 End: October 29, 2024 HOLLI Ramey Attending Provider Active Star t: October 29, 2024 End: October 29, 2024 HOLLI Ramey Referring Provider Active Star t: October 29, 2024 End: October 29, 2024 [employer] Relationship Specialty Start Date End Date Agustina Stacy MD [address] [place] [address] PCP - General Family Medicine 07/01/17 Larissa Yang PA-C [address] [place] [address] Neurology 01/28/18 Source Comments (unrecognize d section and content) In the event this informatio n is protected by the Federal Confidentiality of Alcohol and Drug Abuse Patient Records regulations: The Federal rules restrict any use of the information to criminally investigate or prosecute any alcohol or drug abuse patient.[facility] Hospital[facility] the event this information is protected by the Federal Confidentiality of Alcohol and Drug Abuse Patient Records regulations: The Federal rules restrict any use of the information to criminally investigate or prosecute any alcohol or drug abuse patient.[facility] HospitalIn the event this information is protected by the Federal Confidentiality of Alcohol and Drug Abuse Patient Records regulations: The Federal rules restrict any use of the information to criminally investigate or prosecute any alcohol or drug abuse patient.[facility] HospitalIn the event this information is protected by the Federal Confidentiality of Alcohol and Drug Abuse Patient Records regulations: The Federal rules restrict any use of the information to criminally investigate or prosecute any alcohol or drug abuse patient.[facility] HospitalIn the event this information is protected by the Federal Confidentiality of Alcohol and Drug Abuse Patient Records regulations: The Federal rules restrict any use of the information to criminally investigate or prosecute any alcohol or drug abuse patient.[facility] HospitalIn the event this information is protected by the Federal Confidentiality of Alcohol and Drug Abuse Patient Records regulations: The Federal rules restrict any use of the information to criminally investigate or prosecute any alcohol or drug abuse patient.[facility] HospitalIn the event this information is protected by the Federal Confidentiality of Alcohol and Drug Abuse Patient Records regulations: The Federal rules restrict any use of the information to criminally investigate or prosecute any alcohol or drug abuse patient.[facility] Reason for Visit (unrecogniz ed section and content) Reason Comments Follow Up F/U - attempt made. No answer Reason Comments Follow Up All Clear Reason Comments New Patient Hospital follow up/u rinary frequency Specialty Diagnoses / Procedures Referred By Darius rao Referred To Contact Radiology Diagnoses Age-related osteoporosis without current pathological fracture Procedures XR DEXA bone density Agustina Stacy MD [address] [place] [address] [facility] [id number] Dexa [address] [place] [address] Referral ID Status Reason Start Date Expiration Date Visits Requested Visits Authorized [id number] Pending Review Perform Procedure 09/04/2023 09/03/2024 1 1 Specialty Diagnoses / Procedures Referred By Darius rao Referred To Contact Radiology Diagnoses Encounter for screening mammogram for malignant neoplasm of breast Procedures BI mammo bilateral screening tomosynthesis Agustina Stacy MD [address] [place] [address] Referral ID Status Reason Start Date Expiration Date Visits Requested Visits Authorized [id number] Authorized Perform Procedure 09/04/2023 09/03/2024 1 1 Reason Comments Follow up appt Reason Onset Date Comments Lab Orders 03/29/2024 Reason Onset Date Comments Covid-19 Testing 04/12/2024 Reason Onset Date Comments Appointment 04/15/2024 Reason Comments Jaw Pain Patient complains of left sided jaw pain since Friday, denies injury. States she had the same thing a year ago and it was determined it was related to her MS. States this time its worse and she is having trouble taking her medications because of pain when opening her mouth. Specialty Diagnoses / Procedures Referred By Darius rao Referred To Contact Diagnoses Encounter for screening for malignant neoplasm of colon Personal history of colon polyps Procedures RI COLONOSCOPY FLX DX W/COLLJ SPEC WHEN PFRMD RI COLONOSCOPY W/BIOPSY SINGLE/MULTIPLE RI COLSC FLX W/REMOVAL LESION BY HOT BX FORCEPS RI COLSC FLX W/RMVL OF TUMOR POLYP LESION SNARE TQ [id number] [address] [place] [address] [id number] Referral ID Status Reason Start Date Expiration Date Visits Re quested Visits Authorized [id number] 1 1 Reason Comments Established Patient Follow up/medication s Reason Comments Establish Care Est as new. No compl aints Reason Comments Fall ER Follow-up Reason Comments Follow Up OAB (overactive blad nael) FOR RECORDS PERTAINING TO PATIENTS WHO ARE OR HAVE BEEN ENROLLED IN A CHEMICAL DEPENDENCY/SUBSTANCEABUSE PROGRAM, SOME INFORMATION MAY BE OMITTED. This clinical summary was aggregated from multiple sources. Caution should be exercised in using it in the provision of clinical care. This summary normalizes information from multiple sources, and as a consequence, information in this document may materially change the coding, format and clinical context of patient data. In addition, data may be omitted in some cases. CLINICAL DECISIONS SHOULD BE BASED ON THE PRIMARY CLINICAL RECORDS. [employer] [facility]. provides no warranty or guarantee of the accuracy or completeness of information in this document.
[2025-01-17 13:08] LABS: Anti-Cardiolipin Ab, IgA, Qn < 9 APL U/mL (0-11); Anti-Cardiolipin Ab, IgG, Qn < 9 GPL U/mL (0-14); Anti-Cardiolipin Ab, IgM, Qn 22 MPL U/mL (0-12); Dilute Russell Viper Venom 35.1 sec (0.0-47.0); Interpretation Comment: (.); PTT-LA 35.1 sec (0.0-43.5)
[2025-01-17 15:08] LABS: ANTINUCLEAR ANTIBODIES DIRECT Negative (Negative)
== END | disposition home or self-care (01) ==
LOC: LAB 09:21
PROVIDERS: Referring Provider Physician Assistant; Visit Provider Physician Assistant
DX: R23.1 Pallor (principal)
CPT/HCPCS: 36415; 86038; 86147; 86225

== ENCOUNTER → 2025-03-22 | Outpatient (CLI) | payer BC, SELFPAY ==
--- OUTSIDE RECORDS SUMMARY | 2025-03-22 14:44 | XMS RPT_ITS | CCD ---
Author Organization [facility] Care Team Providers Care [facility] Hospitalist Name Role Phone Dr. Slade Duarte Attending Provider [phone] AGUSTINA STACY Primary Care Provider Unavailabl AGUSTINA Rosenberg Referring Provider Unavailable Tyra Wallace Unavailable Unavailable Unavailable Dr. Slade Duarte Attending Provider [phone] AGUSTINA STACY Primary Care Provider UnavailAGUSTINA Lopez [...] Admitting Unavailable DESTINY ODOM Referring Unava ilable JENMairaNER, AGUSTINA Primary Care Unavailable [address] JR Attending Unavailyahaira Stacy MD, Agustina Primary Care Provider Celia UMAÑA, Larissa Dave Unavailable [phone] Slade Duarte Attending Provider [phone] JENTNER, AGUSTINA Primary Care Provider Unavailabl e [...] Provider Dr. Slade Duarte MD Referring Provider Care Physician, No Primary Primary Care Provider Unavailable [facility] Doctor, Out of Referring Provider Unavailab julieta Javier SPLICING SUPERVISOR-C, Laisha Primary Care Provider Yaya NYLON MACHINE OPERATOR-MACHINE ERECTOR, Laisha B Primary Care Provider Emma Verdin MD Unavailable [place] Doctor, Out of Referring Provider Unavailab Dr. Slade Donovan MD Attending Provider Care Physician, No Primary Primary Care Provider Unavailable Dr. Slade Duarte MD Referring Provider Yaya SPLICING SUPERVISOR-C, Laisha Primary Care Provider Care Physician, No Primary Referring Provider Un available Slade Duarte MD Attending Provider Unavailab Dr. Slade Donovan MD Attending Provider Dr. Ed Mas MD Attending Provider [phone] Yaya SPLICING SUPERVISOR-C, Laisha Referring Provider Dorothy Santizo Attending Provider Dr. Slade Duarte MD Attending Provider Yaya SPLICING SUPERVISOR-C, Laisha Primary Care Provider Dr. Slade Duarte MD Referring Provider Jericho DE LA GARZA, Dorothy Referring Provider DIMPLE SALAZAR Attending Unavailable TAWANNA, AGUSTINA Primary Care Unavailable DIMPLE SALAZAR Attending Unavailable JENCORINNE, AGUSTINA Primary Care Unavailable Yaya NYLON MACHINE OPERATOR-MACHINE ERECTOR, Laisha B Primary Care Provider Yaya SPLICING SUPERVISOR-C, Laisha Primary Care Physician Dorothy Santizo Attending Physician Gerald, Slade Referring Unavailable Yaya, Laisha Primary Care Unavailable Gerald, Slade Attending Unavailable Yaya, Laisha Primary Care Unavailable BadSlade Santana Attending Unavailable [place] Doctor, Out of Referring Unavailable Care Physician, No Primary Primary Care Unava ilable Gerald, Slade Attending Unavailable Echavarria, Dorothy Attending Unavailable Yaya, Laisha Primary Care Unavailable Yaya, Laisha Referring Unavailable Baddour, Slade Referring Unavailable Yaya, Laisha Primary Care Unavailable Ed Mas Attending Unavailable Echavarria, Dorothy Attending Unavailable Echavarria, Dorothy Referring Unavailable Yaya, Laisha Primary Care Unavailable Echavarria, Dorothy Attending Unavailable Echavarria, Dorothy Referring Unavailable Yaya, Laisha Primary Care Unavailable Baddour, Slade Attending Unavailable Yaya, Laisha Primary Care Unavailable Care Physician, No Primary Referring Unava ilable Baddour, Slade Referring Unavailable Badjesus Slade Attending Unavailable Yaya, Laisha Primary Care Unavailable Baddour, Slade Referring Unavailable Care Physician, No Primary Primary Care Unava ilable Gerald, Slade Attending Unavailable Tawanna LARSON, Agustina Primary Care Provider YAYA, LAISHA B Referring Unavailable YAYA, LAISHA B Primary Care Unavailable YAYA, LAISHA B Primary Care Unavailable MIREYA SPEARS Attending Unavailable YAYA, LAISHA B Referring Unavailable YAYA, LAISHA B Primary Care Unavailable LAISHA JAVIER Attending Unavailable AGUSTINA STCAY Primary Care Unavailable LAISHA JAVIER Attending Unavailable LAISHA JAVIER Primary Care Unavailable Allergies Allergy Classification Reported Allergen(s) Allergy Type Date of Onset Reaction(s) Facility (20 sources) Penicillins; Translations: [Penicillins] Propensity to adverse reactions 0 Rash [facility] (10 sources) Seasonal allergy; Translations: [SEASONAL ALLERGIES] Propensity to adverse reactions (disorder) 1 Intolerance [facility] Rep[facility] (1 source) ALLERGIES NOT ON FILE; Translations: [ALLERGIES NOT ON FILE] Propensity to adverse reactions (disorder) [facility] Medications Current Medications Medication Drug Class(es) Dates Sig (Normalized) Sig (Original) alendronic acid 70 mg oral tablet (20 sources) Bisphosphonate Start: 07-19-2023 End: 07-27-2024 alendronate (Fosamax) 70 mg tablet Indications: Osteopenia, unspecified location Take 1 tablet (70 mg) by mouth every 7 days. 12 tablet 3 07/27/2024 Active Start: 07-19-2023 take 1 tablet by emily th every week Alendronate 70 mg tablet Discontinued 70 mg PO EVERY WEEK October 29, 2024 12:00am Comment on above: TAKE 1 TABLET BY EMILY TH ONCE A WEEK BEFORE THE FIRST FOOD, BEVERAGE OR MEDICINE OF THE DAY WITH PLAIN WATER amantadine hydrochloride 100 mg oral capsule (20 sources) Influenza A M2 Protein Inhibitor Start: 06-01-2024 End: 09-15-2024 take 1 capsule by mouth three times daily Start: 12-02-2023 End: 06-01-2024 take 1 capsule by mouth twice daily, then take 1 capsule by mouth three times daily Amantadine Hcl 100 mg capsule Discontinued 0 .ROUTE .COMPLEX 90 6 December 02, 2023 12:00am June 01, 2024 10:19am Take 1 capsule orally twice daily for 1 week then 1 capsule 3 times daily thereafter Bifidobacterium animalis (5 sources) BIFIDOBACTERIUM ANIMALIS ORAL Take by mouth. [...] + D ORAL) Take by mouth. Active cane (13 sources) Start: 03-22-2021 cane Active 0 .Route .MEDSUPPLY March 22, 2021 5:23pm As directed Start: 03-22-2021 cane Active 0 .Route .MEDSUPPLY 1 0 March 22, 2021 1:00am As directed Start: 03-22-2021 cane Active 0 .Route .MEDSUPPLY March 22, 2021 12:00am As directed Start: 03-22-2021 cane Active 0 .Route .MEDSUPPLY March 22, 2021 1:00am As directed cholecalciferol 0.125 mg ora l capsule (20 sources) Vitamin D Start: 01-18-2021 take 1 capsule by mo uth once daily take 1 capsule by mouth once zeenat ly Cholecalciferol, Vitamin D3, 5,000 unit cap Take 5,000 Units by mouth once daily. Active Comment on above: Take 5,000 Units by mouth once daily. clotrimazole 10 mg oral lozenge (1 source) Azole Antifungal Start: 5 End: 5 take 1 tablet by mouth five times daily clotrimazole (Mycelex) 10 mg daron Indications: Thrush Take 1 tablet (10 mg) by mouth 5 times a day for 14 days. Let dissolve slowly in mouth. 70 Daron 01/27/2025 02/10/2025 Active Compression stocking (10-20) (6 sources) Start: 4 Compression stocking (10-20) Active 0 .ROUTE .MEDSUPPLY 1 0 December 02, 2023 12:00am Edema Edema, unspecified edema (R60.9) As directed Start: 12-02-[address]ing (10-20) Active 0 .ROUTE .MEDSUPPLY December 02, 2023 12:00am As directed Start: 12-02-[address]ing (10-20) Active 0 .ROUTE .MEDSUPPLY December 01, 2023 11:00pm As directed cyclobenzaprine hydrochlorid e 10 mg oral tablet (20 sources) Muscle Relaxant Start: 06-01-2024 End: 09-15-2024 take 1 tablet by mouth once daily Start: 12-03-2023 End: 06-01-2024 take 1 tablet by mouth twice daily as needed for muscle spasms Cyclobenzaprine 10 mg tablet Discontinued 10 mg PO TWICE A DAY as needed for muscle spasm 60 6 December 03, 2023 5:31pm June 01, 2024 10:19am Start: 10-10-2022 End: 12-03-2023 take 1 tablet by mouth three times daily as needed for muscle spasms Cyclobenzaprine 10 mg tablet Discontinued 10 mg PO THREE TIMES A DAY as needed for muscle spasm 90 6 July 24, 2023 10:17pm December 03, 2023 5:33pm Start: 12-24-2021 End: 10-10-2022 take 1 tablet by mouth twice daily Cyclobenzaprine 10 mg tablet Discontinued 10 mg PO TWICE A DAY 60 6 October 10, 2022 4:57pm October 10, 2022 5:02pm Start: 10-09-2021 End: 12-24-2021 take 1 tablet by mouth twice daily Cyclobenzaprine 5 mg tablet Discontinued 5 mg PO TWICE A DAY 60 3 October 09, 2021 12:00am December 24, 2021 12:22pm ergocalciferol 1.25 mg oral capsule (5 sources) Provitamin D2 Compound take 1 capsule by mouth every week ergocalciferol (Vitamin D-2) 1.25 MG (67420 UT) capsule Take 1 capsule (1.25 mg) by mouth 1 (one) time per week. Active take 1 capsule by mouth every we ek ergocalciferol (Vitamin D-2) 1.25 MG (26790 UT) capsule Take 1 capsule (1,250 mcg) by mouth 1 (one) time per week. Active escitalopram 5 mg oral tablet (20 sources) Serotonin Reuptake Inhibitor Start: 06-07-2024 End: 06-07-2024 take 1 tablet by mouth once daily escitalopram (Lexapro) 5 mg tablet Indications: Persistent depressive disorder Take 1 tablet (5 mg) by mouth once daily. 90 tablet 3 06/07/2024 Active Start: 05-14-2022 take 1 tablet by emily th once daily Start: 01-18-2021 End: 05-14-2022 take 1 tablet by mouth once daily Escitalopram Oxalate (Lexapro) 20 mg tablet Discontinued 20 mg PO DAILY January 18, 2021 12:00am May 14, 2022 8:56pm Comment on above: Take 1 tablet by emily th once daily. ferrous sulfate 400 mg delayed release oral tablet (5 sources) take 400 mg by mouth once daily FERROUS SULFATE ORAL Take 400 mg by mouth once daily. Active fluticasone propionate 0.05 mg/actuat metered dose nasal spray (17 sources) Corticosteroid Start: take 1 spray(s) nasal [...] SPRAY INTO E ACH NOSTRIL EVERY DAY Handicap Placard (2 sources) Start: 11-05-2024 Handicap Placard Active 0 .Route .MEDSUPPLY 1 0 November 05, 2024 10:00am Multiple sclerosis Abnormality of gait and mobility Multiple sclerosis Unspecified abnormalities of gait and mobility Expiration: 5 years (11/05/2029) G35 Multiple sclerosis R26.9 Abnormality of gait and mobility Start: 11-05-2024 End: 11-05-2024 Handicap Placard Discontinue d 0 .Route .MEDSUPPLY 1 0 November 05, 2024 12:00am November 05, 2024 10:03am Multiple sclerosis Abnormality of gait and mobility Multiple sclerosis Unspecified abnormalities of gait and mobility Expiration: 5 years (11/05/2029) ketotifen 0.25 mg/ml ophthalmic solution (7 sources) Histamine-1 Receptor Inhibitor Start: 11-04-2020 take 1 drop(s) into the eye(s) twice daily ALAWAY 0.025 % (0.035 %) ophthalmic solution Indications: Allergic conjunctivitis of both eyes USE 1 DROP IN BOTH EYES TWICE DAILY. IN AFFECTED EYE(S). 10 mL 2 11/04/2020 Active Comment on above: USE 1 DROP IN BOTH E YES TWICE DAILY. IN AFFECTED EYE(S). L.acid-B.animalis ,bifid,infant (FORTIFY OPTIMA PROBIOTIC) 50 billion cell cpDR (2 sources) L.acid-B.animali s,bi fid, (FORTIFY OPTIMA PROBIOTIC) 50 billion cell cpDR Take by mouth. Active magnesium oxide 400 mg oral tablet (20 sources) Start: 05-07-2023 End: 09-15-2024 take 1 tablet by mouth in the morning magnesium oxide (Mag-Ox) 400 mg (241.3 mg magnesium) tablet Take 1 tablet by mouth early in the morning.. 12/04/2023 Active Start: 10-09-2021 End: 05-07-2023 take 1 tablet by mouth twice daily Magnesium Oxide 250 mg magnesium tablet Discontinued 250 mg PO TWICE A DAY 60 6 October 11, 2022 12:00am May 07, 2023 2:26pm melatonin 10 mg oral capsule (7 sources) Start: 03-07-2018 take 1 capsule by mouth once daily at bedtime melatonin 10 mg cap Take 1 capsule by mouth daily at bedtime. 2 03/07/2018 Active Comment on above: Take 1 capsule by mo uth daily at bedtime. Multivitamin preparation (7 sources) [...] DAILY January 18, 2021 12:00am multivitamin tablet (5 sources) take 1 tablet by mouth once daily multivitamin tablet Take 1 tablet by mouth once daily. Active Multivitamin tablet (6 sources) Start: 01-18-2021 Start: 01-18-2021 Multivitamin t ablet Active 1 {tbl} PO DAILY January 18, [...] days. 280 mL 12/26/2023 01/02/2024 Active omega 7-mca-nug-fish oil (Fish OiL) 1,000 mg (120 mg-180 mg) capsule (10 sources) take 1 capsule by mouth every twenty-four hours omega 5-ufy-fov-fish oil (Fish OiL) 1,000 mg (120 mg-180 [...] sources) Serotonin-1b and Serotonin-1d Receptor Agonist Start: take 1 tablet by mouth every two [...] onset of headache.May repeat after 2 hours. Zinc (5 sources) ZINC ORAL Take b y mouth. [...] 0 Refills: 0 Ordered: 25-Feb-2018 DO Active ALPRAZolam 0.5 mg oral tablet (19 sources) Benzodiazepine Start: 07-24-2023 End: 10-29-2024 Alprazolam 0.5 mg tablet Discontinued 0 .Route .COMPLEX 1 0 July 01, 2024 5:23pm October 29, 2024 3:08pm Muscle spasm Other muscle spasm Take 1 tablet orally 30 minutes prior to MRI amitriptyline hydrochloride 25 mg oral tablet (20 sources) Tricyclic Antidepressant take 1 tablet by mouth at bedtime Elavil 25 MG TABS TAKE 1 TABLET AT BEDTIME. Quantity: 0 Refills: 0 Ordered: 25-Feb-2018 DO Active ascorbic acid 500 mg oral capsule (20 sources) Vitamin C Start: 01-18-2021 End: 10-29-2024 Ascorbic Acid (Vitamin C) 500 mg capsule Discontinued mg PO October 29, 2024 12:00am Comment on above: Take 500 mg by mouth once daily. aspirin 81 mg delayed release oral tablet (20 sources) Platelet Aggregation Inhibitor, Nonsteroidal Anti-inflammatory Drug take 1 tablet by mouth once daily Teresita Aspirin EC Low Dose 81 MG Oral Tablet Delayed Release TAKE 1 TABLET DAILY. Quantity: 0 Refills: 0 Ordered: 26-Feb-2018 DO Active baclofen 10 mg oral tablet (20 sources) gamma-Aminobutyric Acid-ergic Agonist Start: 06-25-2021 End: 09-20-2021 take 1 tablet by mouth twice daily, then take 2 tablets by mouth once daily at bedtime Baclofen 10 mg tablet Discontinued 0 .ROUTE .COMPLEX 120 3 June 25, 2021 1:00am September 20, 2021 4:42pm One tablet PO BID and two tablets qhs Start: 01-18-2021 End: 06-25-2021 take 1 tablet by mouth at bedtime Baclofen 20 mg tablet Discontinued 20 mg PO AT BEDTIME 30 2 March 22, 2021 9:33pm June 25, 2021 5:09pm take 1 tablet by emily th three times daily Baclofen 10 MG Oral Tablet TAKE 1 TABLET 3 TIMES DAILY. Quantity: 0 Refills: 0 Ordered: 26-Feb-2018 DO Active calcium chloride 0.0014 meq/ml / potassium chloride 0.004 meq/ml / sodium chloride 0.103 meq/ml / sodium lactate 0.028 meq/ml injectable solution (2 sources) Start: 02-03-2024 End: 02-04-2024 take 20 mL intravenously every hour 20 mL/hr, intravenous, Continuous, Starting on Fri02/03/24 at 1215, Preprocedure clonazePAM 0.5 mg oral tablet (20 sources) Benzodiazepine take 1 tablet by mouth three times daily clonazePAM 0.5 MG Oral Tablet TAKE 1 TABLET 3 TIMES DAILY. Quantity: 0 Refills: 0 Ordered: 26-Feb-2018 DO Active desmopressin acetate 0.1 mg oral tablet (15 sources) Vasopressin Analog, Factor VIII Activator Start: 10-10-2022 End: 12-03-2023 take 1 tablet by mouth twice daily Desmopressin (Ddavp) 0.1 mg tablet Discontinued 0.1 mg PO TWICE A DAY 60 5 July 24, 2023 10:17pm December 03, 2023 5:31pm urinary urgency/incontin ence dimethyl fumarate 240 mg delayed release oral capsule (20 sources) Start: 01-18-2021 End: 03-22-2021 take 1 capsule by mouth twice daily Dimethyl Fumarate 240 mg capsule,delayed release(DR/EC) Discontinued 240 mg PO TWICE A DAY January 18, 2021 12:00am March 22, 2021 4:38pm diroximel fumarate 231 mg delayed release oral capsule (13 sources) Start: 03-22-2021 End: 12-24-2021 Diroximel Fumarate (Vumerity) 231 mg capsule,delayed release(DR/EC) Discontinued 462 mg PO TWICE A DAY March 22, 2021 1:00am December 24, 2021 9:26pm famotidine 20 mg oral tablet (20 sources) Histamine-2 Receptor Antagonist take 1 tablet by mouth once daily Pepcid 20 MG Oral Tablet TAKE 1 TABLET DAILY DIRECTED. Quantity: 0 Refills: 0 Ordered: 25-Feb-2018 DO Active ferrous gluconate 225 mg oral tablet (20 sources) Start: 01-18-2021 End: 12-24-2021 take 1 tablet by mouth once daily [...] DO Active fluorometholone 1 mg/ml ophthalmic suspension (7 sources) Corticosteroid Start: 025 Fluorometholone 0.1 % drops,suspension Discontinued 1 NMA OPHTHALMIC TWICE A DAY October 29, 2024 12:00am Start: 08-12-2024 take 1 drop(s) into the eye(s) twice daily fluorometholone (FML) 0.1 % ophthalmic suspension Administer 1 drop into both eyes 2 times a day. 08/12/2024 Active FLUoxetine 10 mg oral tablet (20 sources) Serotonin Reuptake Inhibitor PROzac 10 MG TABS TAKE 1 TABLET DAILY. Quantity: 0 Refills: 0 Ordered: 26-Feb-2018 DO Active gabapentin 400 mg oral capsule (20 sources) Anti-epileptic Agent Start: End: take 1 capsule by mouth three times daily Gabapentin 400 mg capsule Discontinued 400 mg PO THREE TIMES A DAY 90 1 June 02, 2023 6:00pm July 24, 2023 10:19pm take 2 capsules by m outh three times daily Gabapentin 100 MG Oral Capsule TAKE 2 CAPSULES 3 TIMES DAILY. Quantity: 0 Refills: 0 Ordered: 26-Feb-2018 DO Active Gabapentin 400 M G TABS TAKE 1 TABLET 3 TIMES DAILY. Quantity: 0 Refills: 0 Ordered: 25-Feb-2018 DO Active Comment on above: TAKE 1 CAPSULE BY MO UTH THREE TIMES DAILY FOR 90 DAYS. glucagon (rdna) 1 mg injection (2 sources) Antihypoglycemic Agent Start: End: intravenous, As needed, Starting on Fri02/03/24 at 1233, Intraprocedure hydrOXYzine hydrochloride 10 mg oral tablet (20 sources) Antihistamine Start: take 1 tablet by mouth once daily hydrOXYzine HCl (ATARAX) 10 mg tablet Take 10 mg by mouth once daily. 07/25/2023 Active Start: 11-28-2022 End: 09-15-2024 take 1 tablet by mouth twice daily Hydroxyzine Hcl 10 mg tablet Discontinued 10 mg PO TWICE A DAY 60 6 June 01, 2024 10:17am September 15, 2024 5:47pm Nausea/dizziness Start: 12-10-2021 End: 11-28-2022 take 1 capsule by mouth three times daily as needed for nausea Hydroxyzine Pamoate 25 mg capsule Discontinued 25 mg PO THREE TIMES A DAY as needed for nausea/dizziness 90 0 December 20, 2021 4:54pm December 24, 2021 9:28pm Comment on above: Take 10 mg by mouth once daily. Left AFO (8 sources) Start: 07-18-2022 End: 10-11-2022 Left AFO Discontinued 0 .Route .MEDSUPPLY 1 0 July 18, 2022 1:00am October 11, 2022 2:14pm Multiple sclerosis Left foot drop Multiple sclerosis Foot drop, left foot Left foot drop; multiple sclerosis As directed Start: 07-18-2022 End: 10-11-2022 Left AFO Discontinued 0 .Rou te .MEDSUPPLY 1 July 18, 2022 12:00am October 11, 2022 1:14pm As directed Start: 07-18-2022 End: 10-11-2022 Left AFO Discontinued 0 .Rou te .MEDSUPPLY 1 July 18, 2022 1:00am October 11, 2022 [...] 29, 2024 12:00am Start: 01-18-2021 End: 05-14-2022 Mecobalamin (Vitamin B12) 1, 000 mcg tablet,chewable Discontinued 1000 ug PO .3xweek January 18, 2021 12:00am May 14, 2022 4:20pm Comment on above: Take by mouth. 1 ml meperidine hydrochloride 50 mg/ml injection (4 sources) Opioid Agonist Start: 02-03-2024 End: 02-03-2024 intravenous, As needed, Starting on Fri02/03/24 at 1235, Intraprocedure Start: 02-03-2024 End: 02-03-2024 intravenous, As needed, Star ting on e 02/03/24 at 1231, Intraprocedure 2 ml midazolam 5 mg/ml injection (8 sources) Benzodiazepine Start: 02-03-2024 End: 02-03-2024 intravenous, Administer over 5 Minutes, As needed, Starting on 02/03/24 at 1238, Intraprocedure Start: 02-03-2024 End: 02-03-2024 intravenous, As needed, Star ting on Fri02/03/24 at 1235, Intraprocedure Mometasone (3 sources) Corticosteroid Start: 10-29-2024 propel Discont inued PO daily October 29, 2024 12:00am 12 hr orphenadrine citrate 100 mg extended release oral tablet (20 sources) Muscle Relaxant Start: 12-03-2023 End: 09-15-2024 take 1 tablet by mouth once daily Orphenadrine Citrate 100 mg tablet extended release Discontinued 100 mg PO .Nightly 30 June 01, 2024 10:17am September 15, 2024 5:47pm muscle spasm Start: 09-20-2021 End: 12-03-2023 take 1 tablet by mouth twice daily as needed for muscle spasms Orphenadrine Citrate 100 mg tablet extended release Discontinued 100 mg PO TWICE A DAY as needed for muscle spasm 60 July 24, 2023 10:18pm December 03, 2023 5:33pm OXcarbazepine 150 mg oral tablet (20 sources) Anti-epileptic Agent Start: 09-15-2024 End: 10-29-2024 take 1 tablet by mouth twice daily Oxcarbazepine 150 mg tablet Discontinued 150 mg PO TWICE A DAY 60 September 15, 2024 12:00am October 29, 2024 3:13pm Start: 04-26-2024 End: 09-15-2024 take 1 tablet by mouth twice daily OXcarbazepine (Trileptal) 300 mg tablet Take 1 tablet (300 mg) by mouth 2 times a day. 04/26/2024 Active Start: 01-29-2024 End: 06-01-2024 take 1 tablet by mouth twice daily Oxcarbazepine 150 mg tablet Discontinued 150 mg PO TWICE A DAY 60 January 29, 2024 12:00am June 01, 2024 10:17am oxybutynin chloride 5 mg oral tablet (20 sources) Cholinergic Muscarinic Antagonist take 1 tablet by mouth three times daily Oxybutynin Chloride 5 MG Oral Tablet TAKE 1 TABLET 3 times daily Quantity: 0 Refills: 0 Ordered: 26-Feb-2018 DO Active predniSONE 10 mg oral tablet (13 sources) Start: End: Prednisone 10 mg tablet Discontinued 0 .Route .COMPLEX 33 0 January 18, 2021 12:00am March 22, 2021 4:37pm 6 tabs x 3 day; 5 tabs x 1 day; 4 tabs x 1 day; 3 tabs x 1 day; 2 tabs x 1 day; 1 tab x 1 day Start: 01-18-2021 End: 03-22-2021 Prednisone Discontinued 0 .R oute .COMPLEX 33 January 18, 2021 12:00am March 22, 2021 4:37pm 6 tabs x 3 day; 5 tabs x 1 day; 4 tabs x 1 day; 3 tabs x 1 day; 2 tabs x 1 day; 1 tab x 1 day 24 hr propranolol hydrochloride 60 mg extended release oral capsule (3 sources) beta-Adrenergic Baltazar Start: 11-27-2023 End: 01-29-2024 [...] by mouth every twenty-four hours as needed Maxalt-HEALTH AND SAFETY INSTRUCTOR 10 MG Oral Tablet Disintegrating TAKE 1 TABLET AT ONSET OF HEADACHE. MAY REPEAT EVERY 2 HOURS NEEDED. MAXIMUM 3 TABLETS IN 24 HOURS. Quantity: 0 Refills: 0 Ordered: 25-Feb-2018 DO Active Maxalt 5 MG TABS TAKE 1 TABLET AT ONSET OF HEADACHE. MAY REPEAT EVERY 2 HOURS NEEDED. MAXIMUM 3 TABLETS IN 24 HOURS. Quantity: 0 Refills: 0 Ordered: 25-Feb-2018 DO Active teriflunomide 14 mg oral tablet (20 sources) Pyrimidine Synthesis Inhibitor Start: 09-23-2022 End: 09-15-2024 take 1 tablet by mouth once daily Teriflunomide (Aubagio) 14 mg tablet Discontinued 14 mg PO DAILY 30 2 May 20, 2023 5:17pm July 24, 2023 10:19pm Start: 12-24-2021 End: 05-14-2022 take 1 tablet by mouth once daily Teriflunomide (Aubagio) 14 mg tablet Discontinued 14 mg PO DAILY December 24, 2021 12:00am May 14, 2022 4:20pm Comment on above: Take 14 mg by mouth once daily. tiZANidine 2 mg oral tablet (20 sources) Central alpha-2 Adrenergic Agonist Start: End: take 1 tablet by mouth at bedtime Tizanidine 2 mg tablet Discontinued 2 mg PO BEDTIME 30 3 September 26, 2021 12:00am October 09, 2021 4:17pm muscle spasticity take 2 tablets by mo [facility] every eight hours tiZANidine HCl - 4 MG Oral Tablet TAKE 2 TABLET Every 8 hours Quantity: 0 Refills: 0 Ordered: 26-Feb-2018 DO Active traMADol hydrochloride 50 mg oral tablet (20 sources) Opioid Agonist Ultram 50 MG TAB S Take 1 tablet twice daily Quantity: 0 Refills: 0 Ordered: 25-Feb-2018 DO Active trospium chloride 20 mg oral tablet (20 sources) Cholinergic Muscarinic Antagonist Start: 024 End: 025 take 1 tablet by mouth twice daily Trospium 20 mg tablet Discontinued 20 mg PO TWICE A DAY October 29, 2024 12:00am administer on an empty stomach Comment on above: Take 1 tablet by emily two times a day. vitamin b12 1 mg/ml injectable solution (7 sources) Vitamin B12 Start: End: inject 1000 ug by intramuscular injection once [...] Documented Da te Episodic/Chronic Acquired foot deformities (8 sources) Foot-drop; Translations: [Foot drop, left foot] 07-18-2022 Episodic Anxiety disorders (20 sources) Mixed anxiety and depressive disorder; Translations: [Dysthymic disorder] 09-18-2017 Chronic Disorders of lipid metabolism (20 sources) Hypercholesterolemia; Translations: [Pure hypercholesterolemia, unspecified] Onset: 1 01-18-2021 Chronic Genitourinary symptoms and ill-defined conditions (20 sources) Urinary incontinence; Translations: [Unspecified urinary incontinence] Onset: 4 05-14-2022 Chronic Headache; including migraine (7 sources) Migraine; Translations: [Migraine, unspecified, not intractable, without status migrainosus] Onset: 4 07-28-2023 Chronic Headache; including migraine (1 source) Headache; including migraine; Translations: [Nonintractable headache, unspecified chronicity pattern, unspecified headache type] Onset: 4 Malaise and fatigue (20 sources) Malaise and fatigue; Translations: [Other malaise and fatigue] Onset: 8 03-16-2018 Episodic Mood disorders (17 sources) Recurrent major depression in partial remission; Translations: [Major depressive disorder, recurrent, in partial remission] Onset: 7 04-18-2017 Chronic Multiple sclerosis (20 sources) Multiple sclerosis; Translations: [Multiple sclerosis] Onset: 7 Resolved: 8 Chronic Mycoses (4 sources) Candidiasis, unspecified; Translations: [Candidiasis of mouth] Onset: 4 01-27-2025 Episodic Nutritional deficiencies (7 sources) Vitamin D deficiency; Translations: [Vitamin D deficiency, unspecified] 09-18-2017 Chronic Osteoporosis (1 source) Senile osteoporosis; Translations: [Age-related osteoporosis without current pathological fracture] 02-17-2024 Chronic Other acquired deformities (20 sources) Contracture of ankle joint; Translations: [Contracture, unspecified ankle] 05-14-2022 Chronic Other acquired deformities (2 sources) Contracture, unspecified ankle; Translations: [Contracture of joint, ankle and foot] Onset: 3 05-14-2022 Chronic Other and unspecified benign neoplasm (8 sources) Hemangioma of vertebral column; Translations: [Hemangioma of other sites] 10-10-2022 Episodic Other and unspecified benign neoplasm (3 sources) History of polyp of colon; Translations: [Personal history of colonic polyps] 02-03-2024 Episodic Other circulatory disease (9 sources) H/O: varicose veins; Translations: [Personal history of other diseases of the circulatory system] 09-13-2024 Episodic Other connective tissue disease (20 sources) [...] Onset: 3 Episodic Other connective tissue disease (6 sources) Spasm; Translations: [Other muscle spasm] 01-29-2024 Episodic Other diseases of bladder and urethra (4 sources) Overactive bladder; Translations: [Overactive bladder] 08-19-2023 Chronic Other diseases of bladder and urethra (1 source) Overactive bladder; Translations: [OAB (overactive bladder)] Onset: 5 Chronic Other diseases of veins and lymphatics (7 sources) Peripheral venous insufficiency; Translations: [Venous insufficiency (chronic) (peripheral)] 09-13-2024 Episodic Other eye disorders (7 sources) Postinflammatory optic atrophy; 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, unspecified eye] Onset: 1 05-10-2011 Chronic Other gastrointestinal disorders (9 sources) Incontinence of feces; Translations: [Full incontinence [...] sense organs] Episodic Other nervous system disorders (11 sources) Trigeminal neuralgia; Translations: [Trigeminal neuralgia] 01-29-2024 Episodic Other nervous system disorders (1 source) Left trigeminal neuralgia; Translations: [Trigeminal neuralgia] 01-29-2024 Episodic Other nutritional; endocrine; and metabolic disorders (13 sources) Hypercalcemia; Translations: [Hypercalcemia] 06-25-2021 Chronic Other nutritional; endocrine; and metabolic disorders (7 sources) Hypophosphatemia; Translations: [Other disorders of phosphorus metabolism] Onset: 4 07-27-2023 Chronic Other nutritional; endocrine; and metabolic disorders (15 sources) History of nutritional deficiency; Translations: [Personal history of other endocrine, nutritional and metabolic disease] 05-14-2022 Episodic Other nutritional; endocrine; and metabolic disorders (1 source) Personal history of other endocrine, nutritional and metabolic disease; Translations: [Personal history of nutritional deficiency] 05-14-2022 Episodic Other screening for suspected conditions (not mental disorders or infectious disease) (15 sources) Encounter for screening mammogram for malignant neoplasm of breast; Translations: [Patient encounter status] Onset: 8 Resolved: 8 Episodic Other upper respiratory infections (3 sources) Acute pharyngitis; Translations: [Acute pharyngitis, unspecified] Onset: 5 01-27-2025 Episodic Paralysis (15 sources) Left hemiparesis; Translations: [Hemiplegia, unspecified affecting left nondominant side] Onset: 4 07-28-2023 Chronic Residual codes; unclassified (12 sources) Edema; Translations: [Edema, unspecified] 12-02-2023 Episodic Residual codes; unclassified (5 sources) 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; Translations: [Pallor] 10-29-2024 Episodic Residual codes; unclassified (1 source) Pallor; Translations: [Pallor] Onset: 5 Episodic Spondylosis; intervertebral disc disorders; other back problems (9 sources) Low back pain; Translations: [Low back pain] 05-14-2022 Episodic Unclassified (2 sources) Patient encounter status 02-03-2024 Past or Other Problems Problem Classification Problem Date Documented Date Episodic/Chronic Blindness and vision defects (7 sources) Diplopia; Translations: [Diplopia] Onset: 3 05-22-2012 Episodic Disorders of teeth and jaw (1 source) Temporomandibular joint disorder; Translations: [Unspecified temporomandibular joint disorder, unspecified side] 12-26-2023 Episodic E Codes: Fall (3 sources) Fall; Translations: [Unspecified fall, initial encounter] Onset: 8 03-16-2018 Episodic Fluid and electrolyte disorders (16 sources) Hypo-osmolality and hyponatremia; Translations: [Hyponatremia] Onset: 4 Resolved: 4 07-31-2023 Episodic Immunizations and screening for infectious disease (7 sources) Anti-nuclear factor positive; Translations: [Other specified abnormal immunological findings in serum] Onset: 9 08-20-2019 Episodic Menopausal disorders (4 sources) Drug therapy finding; Translations: [Hormone replacement therapy] Onset: 4 Resolved: 8 12-19-2017 Episodic Other bone disease and musculoskeletal deformities (8 sources) Osteopenia; Translations: [Other specified disorders of bone density and structure, unspecified site] Onset: 4 05-07-2021 Episodic Other bone disease and musculoskeletal deformities (2 sources) Other specified disorders of bone density and structure, unspecified site; Translations: [Other specified disorders of bone density and structure, unspecified site] Onset: 5 Episodic Other circulatory disease (1 source) Personal [...] [Repeated falls] Onset: 8 03-16-2018 Episodic Other diseases of veins and lymphatics (1 source) Venous insufficiency (chronic) (peripheral); Translations: [Venous insufficiency (chronic) (peripheral)] Onset: 5 Episodic Other eye disorders (7 sources) Internuclear ophthalmoplegia; 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, unspecified eye] Onset: 3 07-28-2023 Episodic Other hematologic conditions (2 sources) Personal history of diseases of the blood and blood-forming organs and certain disorders involving the immune mechanism; Translations: [Personal history of diseases of the blood and blood-forming organs and certain disorders involving the immune mechanism] Onset: 4 Episodic Other nervous system disorders (3 sources) Trigeminal neuralgia; Translations: [Trigeminal neuralgia] Onset: 4 Episodic Residual codes; unclassified (7 sources) Family history of cancer of colon; Translations: [Family history of malignant neoplasm of digestive organs] Onset: 8 10-21-2017 Episodic Residual codes; unclassified (8 sources) Tobacco user; Translations: [Tobacco use] Resolved: 1 12-19-2017 Episodic Syncope (8 sources) Syncope; Translations: [Syncope and collapse] Onset: 5 08-27-2024 Episodic Unclassified (5 sources) Onset: 5 Resolved: 5 05-21-2024 Results Test Name Value Interpretation Reference Range Facility COMPREHENSIVE METABOLIC PANE L W/ANION GAPon 03-13-2025 Albumin [Mass/Vol] 4.6 g/dL Normal 3.6-5.1 [facility] Comment on above: Order Comment: FASTI NG:NO FASTING: NO Performed By: #### 9 2665 #### [facility] [place] [address] Medical Secretary Receptionist: Hubert Mayers MD ALP [Catalytic activity/Vol] 92 U/L Normal 37-153 [facility] Comment on above: Order Comment: FASTI NG:NO FASTING: NO Performed By: #### 9 2665 #### [facility] [place] [address] Medical Secretary Receptionist: Hubert Mayers MD ALT [Catalytic activity/Vol] 24 U/L Normal 6-29 [facility] Comment on above: Order Comment: FASTI NG:NO FASTING: NO Performed By: #### 9 2665 #### [facility] [place] [address] Medical Secretary Receptionist: Hubert Mayers MD AST [Catalytic activity/Vol] 23 U/L Normal 10-35 [facility] Comment on above: Order Comment: FASTI NG:NO FASTING: NO Performed By: #### 9 2666 #### [facility] [place] [address] Medical Secretary Receptionist: Hubert Mayers MD Bilirubin [Mass/Vol] 0.5 mg/dL Normal 0.2-1.2 [facility] Comment on above: Order Comment: FASTI NG:NO FASTING: NO Performed By: #### 9 2665 #### [facility] [address], [address] [place] [address] Medical Secretary Receptionist: Hubert Mayers MD Calcium [Mass/Vol] 9.5 mg/dL Normal 8.6-10.4 [facility] Comment on above: Order Comment: FASTI NG:NO FASTING: NO Performed By: #### 9 2667 #### [facility] [place] [address] Medical Secretary Receptionist: Hubert Mayers MD Chloride [Moles/Vol] 101 mmol/L Normal 98-110 [facility] Comment on above: Order Comment: FASTI NG:NO FASTING: NO Performed By: #### 9 2669 #### [facility] [place] [address] Medical Secretary Receptionist: Hubert Mayers MD CO2 [Moles/Vol] 28 mmol/L Normal 20-32 [facility] Comment on above: Order Comment: FASTI NG:NO FASTING: NO Performed By: #### 9 2665 #### [facility] [place] [address] Medical Secretary Receptionist: Hubert Mayers MD Creatinine [Mass/Vol] 0.58 mg/dL Normal 0.50-1.[address] [facility] Comment on above: Order Comment: FASTI NG:NO FASTING: NO Performed By: #### 9 2665 #### [facility] [place] [address] Medical Secretary Receptionist: Hubert Mayers MD ELECTROLYTE BALANCE 8 mmol/L (calc) Normal 7-17 [facility] Comment on above: Order Comment: FASTI NG:NO FASTING: NO Performed By: #### 9 2662 #### [facility] [place] [address] Medical Secretary Receptionist: Hubert Mayers MD GFR/1.73 sq M.predicted among non-blacks MDRD (S/P/Bld) [Vol rate/Area] 103 mL/min/{1.73_m2} Normal > OR = 60 [facility] Comment on above: Order Comment: FASTI NG:NO FASTING: NO Performed By: #### 9 2665 #### [facility] [address], [address] [place] [address] Medical Secretary Receptionist: Hubert Mayers MD Glucose [Mass/Vol] 89 mg/dL Normal 65-139 [facility] Comment on above: Order Comment: FASTI NG:NO FASTING: NO Result Comment: Non-fasting reference interval Performed By: #### 9 2668 #### [facility] [place] [address] Medical Secretary Receptionist: Hubert Mayers MD Potassium [Moles/Vol] 4.2 mmol/L Normal 3.5-5.3 [facility] Comment on above: Order Comment: FASTI NG:NO FASTING: NO Performed By: #### 9 2668 #### [facility] [place] [address] Medical Secretary Receptionist: Hubert Mayers MD Protein [Mass/Vol] 7.1 g/dL Normal 6.1-8.1 [facility] Comment on above: Order Comment: FASTI NG:NO FASTING: NO Performed By: #### 9 266 #### [facility] [place] [address] Medical Secretary Receptionist: Hubert Mayers MD Sodium [Moles/Vol] 137 mmol/L Normal 135-146 [facility] Comment on above: Order Comment: FASTI NG:NO FASTING: NO Performed By: #### 9 2395 #### [facility] [place] [address] Medical Secretary Receptionist: Hubert Mayers MD Urea nitrogen [Mass/Vol] 8 mg/dL Normal 7-25 [facility] Comment on above: Order Comment: FASTI NG:NO FASTING: NO Performed By: #### 9 8757 #### [facility] [address], [address] [place] [address] Medical Secretary Receptionist: Hubert Mayers MD BI MAMMO BILATERAL SCREENING TOMOSYNTHESISon 02-21-2025 BI MAMMO BILATERAL SCREENING TOMOSYNTHESIS Interpreted By: uJan Luis Grimm, STUDY: BI MAMMO BILATERAL SCREENING TOMOSYNTHESIS; 02/21/2025 11:00 am ACCESSION NUMBER(S): [id number] ORDERING CLINICIAN: LAISHA JAVIER INDICATION: Screening. COMPARISON: Digital mammograms dated 02/17/2024 FINDINGS: CC and MLO 2D digital mammograms [...] BI-RADS CATEGORY: BI-RADS Category: 1 Negative. Recommendation: Annual Screening. Recommended Date: 1 Year. Laterality: Bilateral. MACRO: None Signed by: Juan Luis Grimm 02/22/2025 9:00 AM Dictation workstation: [id number] Normal [facility] POCT Group A Streptococcus, PCR manually resultedon 01-27-2025 S. pyogenes DNA SHON+probe Ql (Throat) Not detected Not Detected [facility] Work Phone: [facility] Work Phone: LAM w/ Reflex Mult Confirmon 01-18-2025 ANTI-DNA (DS)AB TNP Normal [facility] Comment on above: Performed By: #### L 3100.5450, L4500.0100, L3100.8408 ####[facility] [address] [place], [address] ANTI-SS-A TNP Normal [facility] Comment on above: Performed By: #### L 3100.5450, L4500.0100, L3100.8408 ####[facility] [address] [place], [address] ANTI-SS-B TNP Normal [facility] Comment on above: Performed By: #### L 3100.5450, L4500.0100, L3100.8408 ####[facility] [address] [place], [place], [id number](120) Anticardiolipin IgA,G,Mon ANTICARDIO IgA < 9 Normal 0-11 [facility] Comment on above: Result Comment: Nega tive: <12 Indeterminate: 12 - 20 Low-Med Positive: >20 - 80 High Positive: >80 Performed at: [facility] [address] [id number] Outsole Leveler: Sindhu Weaver MD, Phone: [phone] Performed at: [facility] [address] [id number] Outsole Leveler: Kvng Branham PhD, Phone: [phone] Performed By: #### L 3100.5450, L4500.0100, L3100.8408 ####[facility] [address] [place], [place], [id number] ANTICARDIO IgG < 9 Normal 0-14 [facility] Comment on above: Result Comment: Nega tive: <15 Indeterminate: 15 - 20 Low-Med Positive: >20 - 80 High Positive: >80 Performed By: #### L 3100.5450, L4500.0100, L3100.8408 ####[facility] [address] [place], [address] Anticardio.IgM 22 MPL U/mL High 0-12 [facility] Comment on above: Result Comment: Nega tive: <13 Indeterminate: 13 - 20 Low-Med Positive: >20 - 80 High Positive: >80 Performed By: #### L 3100.5450, L4500.0100, L3100.8408 ####[facility] [address] [place], [address] Lupus Anticoagulant Compon 0 01-17-2025 aPTT Coag (Bld) [Time] 35.1 s Normal 0.0-43.5 [facility] Comment on above: Performed By: #### L 3100.5450, L4500.0100, L3100.8408 ####[facility] [address] [place], [address] DILUTE PT (dPT) 40.4 sec Normal 0.0-47.6 [facility] Comment on above: Performed By: #### L 3100.5450, L4500.0100, L3100.8408 ####[facility] [address] [place], [address] dPT Conf. Ratio 0.98 Ratio Normal 0.00-1.34 [facility] Comment on above: Performed By: #### L 3100.5450, L4500.0100, L3100.8408 ####[facility] [address] [place], [address] DRVVT 35.1 sec Normal 0.0-47.0 [facility] Comment on above: Performed By: #### L 3100.5450, L4500.0100, L3100.8408 ####[facility] [address] [place], [address] Interpretation Comment: Normal . [facility] Comment on above: Result Comment: No l upus anticoagulant was detected. Performed By: #### L 3100.5450, L4500.0100, L3100.8408 ####[facility] [address] [place], [address] THROMBIN TIME 18.5 sec Normal 0.0-23.0 [facility] Comment on above: Performed By: #### L 3100.5450, L4500.0100, L3100.8408 ####[facility] [address] [place], [address] Dilute Wei's viper venom timeOrdered By: Dorothy Echavarria on 01-15-2025 dRVVT Coag (PPP) [Time] 35.1 s 0.0-47.0 [facility] Serum DNA double strand anti body assay (units/volume)Ordered By: Dorothy Echavarria on 01-15-2025 DNA double strand Ab Qn (S) [facility] Comment on above: Test not performed Serum Scl-70 antibody assay (units/volume)Ordered By: Dorothy Echavarria on 01-15-2025 SCL-70 extractable nuclear Ab Qn (S) [facility] Comment on above: Test not performed Serum cardiolipin IgG antibo dy assay by immunoassay (units/volume)Ordered By: Dorothy Echavarria on 01-15-2025 Cardiolipin IgG IA Qn (S) < 9 GPL U/mL 0-14 [facility] Comment on above: Negative: <15 Indete rminate: 15 - 20 Low-Med Positive: >20 - 80 High Positive: >80 Serum or plasma cardiolipin IgA antibody assay (units/volume)Ordered By: Dorothy Echavarria on 01-15-2025 Cardiolipin IgA Qn < 9 APL U/mL 0-11 [facility] Comment on above: Negative: <12 Indete rminate: 12 - 20 Low-Med Positive: >20 - 80 High Positive: >80Performed at: [facility] [address] [id number] Director: Sindhu Weaver MD, Phone: [phone] at: [facility] [address] [id number] Director: Kvng Branham PhD, Phone: [phone] Thrombin timeOrdered By: Quoc Echavarria on 01-15-2025 Thrombin time Coag (PPP) [Time] 18.5 sec 0.0-23.0 [facility] BASIC METABOLIC PANEL WITH A NION GAPon 12-04-2024 BUN/CREATININE RATIO SEE NOTE: Normal 6-22 [facility] Comment on above: Result Comment: Not Reported: BUN and Creatinine are within reference range. Performed By: #### 9 2498 #### [facility] of [address], [address] [place] [address] Medical Secretary Receptionist: Hubert Mayers MD Calcium [Mass/Vol] 9.1 mg/dL Normal 8.6-10.4 [facility] Comment on above: Performed By: #### 9 2498 #### [facility] of [place] [address] Medical Secretary Receptionist: Hubert Mayers MD Chloride [Moles/Vol] 105 mmol/L Normal 98-110 [facility] Comment on above: Performed By: #### 9 2498 #### [facility] of [place] [address] Medical Secretary Receptionist: Hubert Mayers MD CO2 [Moles/Vol] 27 mmol/L Normal 20-32 [facility] Comment on above: Performed By: #### 9 2498 #### [facility] of [place] [address] Medical Secretary Receptionist: Hubert Mayers MD Creatinine [Mass/Vol] 0.63 mg/dL Normal 0.50-1.05 [facility] Comment on above: Performed By: #### 9 2498 #### [facility] of [place] [address] Medical Secretary Receptionist: Hubert Mayers MD ELECTROLYTE BALANCE 7 mmol/L (calc) Normal 7-17 [facility] Comment on above: Performed By: #### 9 2498 #### [facility] of [place] [address] Medical Secretary Receptionist: Hubert Mayers MD GFR/1.73 sq M.predicted among non-blacks MDRD (S/P/Bld) [Vol rate/Area] 101 mL/min/{1.73_m2} Normal > OR = 60 [facility] Comment on above: Performed By: #### 9 2498 #### [facility] of [place] [address] Medical Secretary Receptionist: Hubert Mayers MD Glucose [Mass/Vol] 97 mg/dL Normal 65-99 [facility] Comment on above: Result Comment: Fasting reference interval Performed By: #### 9 2498 #### [facility] [address], [address] [place] [address] Medical Secretary Receptionist: Hubert Mayers MD Potassium [Moles/Vol] 3.9 mmol/L Normal 3.5-5.[address] [facility] Comment on above: Performed By: #### 9 2498 #### [facility] of [address], [address] [place] [address] Medical Secretary Receptionist: Hubert Mayers MD Sodium [Moles/Vol] 139 mmol/L Normal 135-146 [facility] Comment on above: Performed By: #### 9 2498 #### [facility] [address], [address] [place] [address] Medical Secretary Receptionist: Hubert Mayers MD Urea nitrogen [Mass/Vol] 14 mg/dL Normal 7-25 [facility] Comment on above: Performed By: #### 9 2498 #### [facility] [address], [address] [place] [address] Medical Secretary Receptionist: Hubert Mayers MD [facility] 11-23-2024 CNOV Office Visit (UROLMD ) -- SOCORRO GRACE ([id number]) 1965 F Date Time Provider Department 11/23/24 4:00 PM DIMPLE SALAZAR URODRE During your visit today, we recorded the following information about you: Weight Height 65.8 kg 1.676 m Sherron Trujillo LPN 11/23/2024 4:18 PM Signed Bladder scan obtained 7 ml of urine Dimple Salazar, NYLON MACHINE OPERATOR.MACHINE ERECTOR 11/23/2024 4:18 PM Signed Socorro Grace is a 59 year old [...] with certainty. MS (multiple sclerosis) ([facility]) 2006 Dr. Buckley Osteopenia hip, spine. BMD 03/29 S/P hysterectomy LAYNE/BSO - endometriosis Snoring normal sleep study. on flonase Vitamin D deficiency PAST SURGICAL HISTORY: PAST SURGICAL HISTORY Procedure Laterality Date COLONOSCOPY 11/23/2013 - repeat 5 years - reminder created TOTAL ABDOMINAL HYSTERECT W/WO RMVL TUBE OVARY 05/12/1999 appendix with LAYNE/BSO for endometriosis F (more content not included)... Normal [facility] [place] Protein C, Functionalon 10-11 PROTEIN C,FUNC TNP Normal [facility] Comment on above: Performed By: #### L 3100.7050, L3100.8408, L3100.5440, L3100.7250, L3100.7325, L3100.5700, L3100.7335, L3100.5800, L3100.5600, L101.9900, L4500.0100 ####[facility] [address] [place], [place], [id number] LAM Comprehensive Panelon ANTI-DNA (DS)AB 1 IU/mL Normal 0-9 [facility] Comment on above: Result Comment: Nega tive <5 Equivocal 5 - 9 Positive >9 Performed By: #### L 3100.7050, L3100.8408, L3100.5440, L3100.7250, L3100.7325, L3100.5700, L3100.7335, L3100.5800, L3100.5600, L101.9900, L4500.0100 #### [facility] [address] [place], [place], [id number] ANTI-SS-A < 0.2 Normal 0.0-0.9 [facility] Comment on above: Performed By: #### L 3100.7050, L3100.8408, L3100.5440, L3100.7250, L3100.7325, L3100.5700, L3100.7335, L3100.5800, L3100.5600, L101.9900, L4500.0100 #### [facility] [address] [place], [place], [address] ANTI-SS-B < 0.2 Normal 0.0-0.9 [facility] Comment on above: Performed By: #### L 3100.7050, L3100.8408, L3100.5440, L3100.7250, L3100.7325, L3100.5700, L3100.7335, L3100.5800, L3100.5600, L101.9900, L4500.0100 #### [facility] [address] [place], [address] Anticardiolipin IgA,G,Mon ANTICARDIO IgA < 9 Normal 0-11 [facility] Comment on above: Result Comment: Nega tive: <12 Indeterminate: 12 - 20 Low-Med Positive: >20 - 80 High Positive: >80 Performed By: #### L 3100.7050, L3100.8408, L3100.5440, L3100.7250, L3100.7325, L3100.5700, L3100.7335, L3100.5800, L3100.5600, L101.9900, L4500.0100 ####[facility] [address] [place], [address] ANTICARDIO IgG < 9 Normal 0-14 [facility] Comment on above: Result Comment: Nega tive: <15 Indeterminate: 15 - 20 Low-Med Positive: >20 - 80 High Positive: >80 Performed By: #### L 3100.7050, L3100.8408, L3100.5440, L3100.7250, L3100.7325, L3100.5700, L3100.7335, L3100.5800, L3100.5600, L101.9900, L4500.0100 ####[facility] [address] [place], [address] Anticardio.IgM 14 MPL U/mL High 0-12 [facility] Comment on above: Result Comment: Nega tive: <13 Indeterminate: 13 - 20 Low-Med Positive: >20 - 80 High Positive: >80 Performed By: #### L 3100.7050, L3100.8408, L3100.5440, L3100.7250, L3100.7325, L3100.5700, L3100.7335, L3100.5800, L3100.5600, L101.9900, L4500.0100 ####[facility] [address] [place], [place], [id number] Complement C3on 11-01-2024 COMP C3 135 mg/dL Normal 82-167 [facility] Comment on above: Performed By: #### L 3100.7050, L3100.8408, L3100.5440, L3100.7250, L3100.7325, L3100.5700, L3100.7335, L3100.5800, L3100.5600, L101.9900, L4500.0100 ####[facility] [address] [place], [place], [id number] Complement C4on 11-01-2024 COMPLEMENT, C4 18 mg/dL Normal 12-38 [facility] Comment on above: Performed By: #### L 3100.7050, L3100.8408, L3100.5440, L3100.7250, L3100.7325, L3100.5700, L3100.7335, L3100.5800, L3100.5600, L101.9900, L4500.0100 ####[facility] [address] [place], [place], [id number] Complement CH50on 11-01-2024 COMPLEMENT,CH50 > 60 Normal >41 [facility] Comment on above: Result Comment: Age Male [...] of range values. Performed By: #### L 3100.7050, L3100.8408, L3100.5440, L3100.7250, L3100.7325, L3100.5700, L3100.7335, L3100.5800, L3100.5600, L101.9900, L4500.0100 ####[facility] [address] [place], [place], [id number] Lupus Anticoagulant Compon 0 - aPTT Coag (Bld) [Time] 37.3 s Normal 0.0-43.5 [facility] Comment on above: Performed By: #### L 3100.7050, L3100.8408, L3100.5440, L3100.7250, L3100.7325, L3100.5700, L3100.7335, L3100.5800, L3100.5600, L101.9900, L4500.0100 ####[facility] [address] [place], [place], [id number] DILUTE PT (dPT) 48.9 sec High 0.0-47.6 [facility] Comment on above: Performed By: #### L 3100.7050, L3100.8408, L3100.5440, L3100.7250, L3100.7325, L3100.5700, L3100.7335, L3100.5800, L3100.5600, L101.9900, L4500.0100 ####[facility] [address] [place], [place], [id number] dPT Conf. Ratio 1.05 Ratio Normal 0.00-1.34 [facility] Comment on above: Performed By: #### L 3100.7050, L3100.8408, L3100.5440, L3100.7250, L3100.7325, L3100.5700, L3100.7335, L3100.5800, L3100.5600, L101.9900, L4500.0100 ####[facility] [address] [place], [place], [id number] DRVVT 40.6 sec Normal 0.0-47.0 [facility] Comment on above: Performed By: #### L 3100.7050, L3100.8408, L3100.5440, L3100.7250, L3100.7325, L3100.5700, L3100.7335, L3100.5800, L3100.5600, L101.9900, L4500.0100 ####[facility] [address] [place], [address] Interpretation Comment: Normal . [facility] Comment on above: Result Comment: No l upus anticoagulant was detected. The dPT was extended but the dPT confirmatory ratio was normal. This is consistent with a deficiency or specific inhibition of one or more extrinsic pathway factors (VII, X, V, II or fibrinogen). Performed By: #### L 3100.7050, L3100.8408, L3100.5440, L3100.7250, L3100.7325, L3100.5700, L3100.7335, L3100.5800, L3100.5600, L101.9900, L4500.0100 ####[facility] [address] [place], [address] THROMBIN TIME 17.4 sec Normal 0.0-23.0 [facility] Comment on above: Performed By: #### L 3100.7050, L3100.8408, L3100.5440, L3100.7250, L3100.7325, L3100.5700, L3100.7335, L3100.5800, L3100.5600, L101.9900, L4500.0100 ####[facility] [address] [place], [address] Protein C, Functionalon 06-2 PROTEIN C,FUNC 90 Normal 73-180 [facility] Comment on above: Result Comment: Perf ormed at: [facility] [address] [id number] Outsole Leveler: Sindhu Weaver MD, Phone: [phone] Performed at: - [address] [id number] Outsole Leveler: Kvng Branham PhD, Phone: [phone] Performed By: #### L 3100.7050, L3100.8408, L3100.5440, L3100.7250, L3100.7325, L3100.5700, L3100.7335, L3100.5800, L3100.5600, L101.9900, L4500.0100 ####[facility] [address] [place], [place], [id number]) Protein S Antigenon 11-02-19 25 PROTEIN S, FREE 111 Normal 61-136 [facility] Comment on above: Performed By: #### L 3100.7050, L3100.8408, L3100.5440, L3100.7250, L3100.7325, L3100.5700, L3100.7335, L3100.5800, L3100.5600, L101.9900, L4500.0100 ####[facility] [address] [place], [address] PROTEIN S,TOTAL 89 Normal 60-150 [facility] Comment on above: Result Comment: This test was developed and its performance characteristics determined by [employer]. It has not been cleared or approved by the Food and Drug Administration. Performed By: #### L 3100.7050, L3100.8408, L3100.5440, L3100.7250, L3100.7325, L3100.5700, L3100.7335, L3100.5800, L3100.5600, L101.9900, L4500.0100 ####[facility] [address] [place], [place], [phone]) Protein S, Functionalon 10-11 PROTEIN S, FUNC 98 Normal 63-140 [facility] Comment on above: Result Comment: Prot ein S activity may be falsely increased (masking an abnormal, low result) in patients receiving direct Xa inhibitor (e.g., rivaroxaban, apixaban, edoxaban) or a direct thrombin inhibitor (e.g., dabigatran) anticoagulant treatment due to assay interference by these drugs. Performed By: #### L 3100.7050, L3100.8408, L3100.5440, L3100.7250, L3100.7325, L3100.5700, L3100.7335, L3100.5800, L3100.5600, L101.9900, L4500.0100 ####[facility] [address] [place], [address] BASIC METABOLIC PANEL WITH A NION GAPon 10-31-2024 BUN/CREATININE RATIO SEE NOTE: Normal - [facility] Comment on above: Result Comment: Not Reported: BUN and Creatinine are within reference range. Performed By: #### 9 2498 #### [facility] [place] [address] Medical Secretary Receptionist: Hubert Mayers MD Calcium [Mass/Vol] 10.0 mg/dL Normal 8.6-10.4 [facility] Comment on above: Performed By: #### 9 2498 #### [facility] [place] [address] Medical Secretary Receptionist: Hubert Mayers MD Chloride [Moles/Vol] 100 mmol/L Normal 98-110 [facility] Comment on above: Performed By: #### 9 2498 #### [facility] [place] [address] Medical Secretary Receptionist: Hubert Mayers MD CO2 [Moles/Vol] 28 mmol/L Normal 20-32 [facility] Comment on above: Performed By: #### 9 2498 #### [facility] [place] [address] Medical Secretary Receptionist: Hubert Mayers MD Creatinine [Mass/Vol] 0.70 mg/dL Normal 0.50-1.[address] [facility] Comment on above: Performed By: #### 9 2498 #### [facility] [place] [address] Medical Secretary Receptionist: Hubert Mayers MD ELECTROLYTE BALANCE 9 mmol/L (calc) Normal 7-17 [facility] Comment on above: Performed By: #### 9 2498 #### [facility] [place] [address] Medical Secretary Receptionist: Hubert Mayers MD GFR/1.73 sq M.predicted among non-blacks MDRD (S/P/Bld) [Vol rate/Area] 98 mL/min/{1.73_m2} Normal > OR = 60 [facility] Comment on above: Performed By: #### 9 2498 #### [facility] [place] [address] Medical Secretary Receptionist: Hubert Mayers MD Glucose [Mass/Vol] 80 mg/dL Normal 65-99 [facility] Comment on above: Result Comment: Fasting reference interval Performed By: #### 9 2498 #### [facility] [place] [address] Medical Secretary Receptionist: Hubert Mayers MD Potassium [Moles/Vol] 4.2 mmol/L Normal 3.5-5.[address] [facility] Comment on above: Performed By: #### 9 2498 #### [facility] [place] [address] Medical Secretary Receptionist: Hubert Mayers MD Sodium [Moles/Vol] 137 mmol/L Normal 135-146 [facility] Comment on above: Performed By: #### 9 2498 #### [facility] [place] [address] Medical Secretary Receptionist: Hubert Mayers MD Urea nitrogen [Mass/Vol] 10 mg/dL Normal 7-25 [facility] Comment on above: Performed By: #### 9 2498 #### [facility] [place] [address] Medical Secretary Receptionist: Hubert Mayers MD Dilute Wei's viper venom timeOrdered By: Dorothy Echavarria on 10-29-2024 dRVVT Coag (PPP) [Time] 40.6 s 0.0-47.0 [facility] Erythrocyte Sed Rateon 10-29 SED RATE 10 mm/hr Normal 0-30 [facility] Comment on above: Performed By: #### L 3100.7050, L3100.8408, L3100.5440, L3100.7250, L3100.7325, L3100.5700, L3100.7335, L3100.5800, L3100.5600, L101.9900, L4500.0100 ####[facility] [address] [facility] [place], [address] Erythrocyte sedimentation ra teOrdered By: Dorothy Echavarria on 10-29-2024 ESR (Bld) [Velocity] 10 mm/h 0-30 [facility] Functional protein C measure mentOrdered By: Dorotyh Echavarria on 10-29-2024 Protein C actual/normal Chromogenic method (PPP) [Rel catalytic activity/Vol] 90 % 73-180 [facility] Comment on above: Performed at: [address] [id number] Director: Sindhu Weaver MD, Phone: [phone] at: - [address] [id number] Director: Kvng Branham PhD, Phone: [phone] Protein C actual/normal Chromogenic method (PPP) [Rel catalytic activity/Vol] TNP [facility] Comment on above: Test not performed MR/BMS.BVSon 10-29-2024 MR/BMS.BVS [facility] [address] 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 Normal [facility] Platelet poor plasma protein S actual/normal ratio (relative time)Ordered By: Dorothy Echavarria on 10-29-2024 Protein S actual/normal Coag (PPP) [Relative time] 98 % 63-140 [facility] Comment on above: Protein S activity m ay be falsely increased (masking anabnormal, low result) in patients receiving direct Xainhibitor (e.g., rivaroxaban, apixaban, edoxaban) or adirect thrombin inhibitor (e.g., dabigatran) anticoagulanttreatment due to assay interference by these drugs. Protein S measurement in anton telet poor plasma by coagulation assay (units/volume)Ordered By: Dorothy Echavarria on 10-29-2024 Protein S Coag Qn (PPP) 89 % 60-150 [facility] Comment on above: This test was develo ped and its performance characteristicsdetermined by [facility]. It has not been cleared orapproved by the Food and Drug Administration. Protein S, freeOrdered By: Yahaira Echavarria on 10-29-2024 Protein S Free Ag IA Qn (PPP) 111 % 61-136 [facility] Serum DNA double strand anti body assay (units/volume)Ordered By: Dorothy Echavarria on 10-29-2024 DNA double strand Ab Qn (S) 1 [IU]/mL 0-9 [facility] Comment on above: Negative <5 Equivoca l 5 - 9 Positive >9 Serum Scl-70 antibody assay (units/volume)Ordered By: Dorothy Echavarria on 10-29-2024 SCL-70 extractable nuclear Ab Qn (S) <0.2 AI 0.0-0.9 [facility] Comment on above: Previous reported re sult: TNP AIEdited by: DARA on 11/01/24:1409 AMENDED REPORT 11/01/24 1400 ANTISCLER previously reported as: Test not performed Serum cardiolipin IgG antibo dy assay by immunoassay (units/volume)Ordered By: Dorothy Echavarria on 10-29-2024 Cardiolipin IgG IA Qn (S) < 9 GPL U/mL 0-14 [facility] Comment on above: Negative: <15 Indete rminate: 15 - 20 Low-Med Positive: >20 - 80 High Positive: >80 Serum or plasma cardiolipin IgA antibody assay (units/volume)Ordered By: Dorothy Echavarria on 10-29-2024 Cardiolipin IgA Qn < 9 APL U/mL 0-11 [facility] Comment on above: Negative: <12 Indete rminate: 12 - 20 Low-Med Positive: >20 - 80 High Positive: >80 Serum or plasma complement C 4 measurement (mass/volume)Ordered By: Dorothy Echavarria on 10-29-2024 Complement C4 [Mass/Vol] 18 mg/dL 12-38 [facility] Thrombin timeOrdered By: Quoc Echavarria on 10-29-2024 Thrombin time Coag (PPP) [Time] 17.4 sec 0.0-23.0 [facility] Trileptal-Oxcarbazepineon OXCARBAZEPINE 2 ug/mL Low 10-35 [facility] Comment on above: Result Comment: This test was developed and its performance characteristics determined by [employer]. It has not been cleared or approved by the Food and Drug Administration. Detection Limit = 1 Performed at: [address] [id number] Outsole Leveler: Sindhu Weaver MD, Phone: [phone] Performed By: #### L 500.2500, L100.0100, L3444.1703 #### [facility] [address] [place], [address] BASIC METABOLIC PANEL WITH A NION GAPon 09-30-2024 BUN/CREATININE RATIO SEE NOTE: Normal -22 [facility] Comment on above: Result Comment: Not Reported: BUN and Creatinine are within reference range. Performed By: #### 9 9828 #### [facility] [place] [address] [place] [address] Medical Secretary Receptionist: Hubert Mayers MD Calcium [Mass/Vol] 9.2 mg/dL Normal 8.6-10.4 [facility] Comment on above: Performed By: #### 9 2498 #### [facility] [place] [address] Medical Secretary Receptionist: Hubert Mayers MD Chloride [Moles/Vol] 96 mmol/L Low 98-110 [facility] Comment on above: Performed By: #### 9 2498 #### [facility] [place] [address] Medical Secretary Receptionist: Hubert Mayers MD CO2 [Moles/Vol] 26 mmol/L Normal 20-32 [facility] Comment on above: Performed By: #### 9 2498 #### [facility] [place] [address] Medical Secretary Receptionist: Hubert Mayers MD Creatinine [Mass/Vol] 0.54 mg/dL Normal 0.50-1.05 [facility] Comment on above: Performed By: #### 9 2498 #### [facility] [place] [address] Medical Secretary Receptionist: Hubert Mayers MD ELECTROLYTE BALANCE 11 mmol/L (calc) Normal 7-17 [facility] Comment on above: Performed By: #### 9 2498 #### [facility] [place] [address] Medical Secretary Receptionist: Hubert Mayers MD GFR/1.73 sq M.predicted among non-blacks MDRD (S/P/Bld) [Vol rate/Area] 105 mL/min/{1.73_m2} Normal > OR = 60 [facility] Comment on above: Performed By: #### 9 8128 #### [facility] [place] [address] Medical Secretary Receptionist: Hubert Mayers MD Glucose [Mass/Vol] 92 mg/dL Normal 65-99 [facility] Comment on above: Result Comment: Fasting reference interval Performed By: #### 9 3858 #### [facility] [place] [address], [address] [place] [address] Medical Secretary Receptionist: Hubert Mayers MD Potassium [Moles/Vol] 3.9 mmol/L Normal 3.5-5.[address] [facility] Comment on above: Performed By: #### 9 2498 #### [facility] of [address], [address] [place] [address] Medical Secretary Receptionist: Hubert Mayers MD Sodium [Moles/Vol] 133 mmol/L Low 135-146 [facility] Comment on above: Performed By: #### 9 2498 #### [facility] of [address], [address] [place] [address] Medical Secretary Receptionist: Hubert Mayers MD Urea nitrogen [Mass/Vol] 13 mg/dL Normal 7-25 [facility] Comment on above: Performed By: #### 9 2498 #### [facility] [address], [address] [place] [address] Medical Secretary Receptionist: Hubert Mayers MD Venous duplex ultrasound rep ortOrdered By: Ed Mas on 09-28-2024 US Vein [facility] [address] [place] [address] Venous Duplex US - Brennen Extrem 09/27/24 1400 MR#: [id number] Acct: [id number] Name: SOCORRO GRACE Rep #:[id number] : 1965 58 From: Ed Rdz Attending [...] 0750 Date _ Ed Mas MD CC: FRANCI Javier; Dr. Slade Duarte MD ~ Date Dictated: 09/27/24 1400 Date Transcribed: 09/28/24 0750 It Security Manager: Signed [facility] Work Phone: Absolute lymphocyte countOrd ered By: Slade Duarte on 09-27-2024 Lymphocytes Auto (Unsp spec) [#/Vol] 1.23 10*3/uL 0.83-4.51 [facility] Absolute neutrophil countOrd ered By: Slade Duarte on 09-27-2024 Neutrophils (Bld) [#/Vol] 3.6 10*3/uL 2.0-7.7 [facility] Anion gap in Serum or Plasma Ordered By: Slade Duarte on 09-27-2024 Anion gap [Moles/Vol] 11 mmol/L - [facility] Automated lymphocyte count a s percentage of total leukocytesOrdered By: Slade Duarte on 09-27-2024 Lymphocytes/100 WBC Auto (Unsp spec) 20.9 % - [facility] BUN/creatinine ratioOrdered By: Slade Duarte on 09-27-2024 Urea nitrogen/Creatinine [Mass ratio] 19.1 mg/mg - [facility] Basic Metabolic Profile (BMP )on 09-27-2024 BUN/CRE 19.1 RATIO Normal - [facility] Comment on above: Performed By: #### L 500.2500, L100.0100, L3800.1700 #### [facility] [address] [place], [address] Calcium [Mass/Vol] 9.8 mg/dL Normal 7.6-11.0 [facility] Comment on above: Performed By: #### L 500.2500, L100.0100, L3800.1700 #### [facility] [address] [place], [address] Chloride [Moles/Vol] 98 mmol/L Normal 98-108 [facility] Comment on above: Performed By: #### L 500.2500, L100.0100, L3800.1700 #### [facility] [address] [place], [address] CO2 [Moles/Vol] 26.9 mmol/L Normal 21.0-32.0 [facility] Comment on above: Performed By: #### L 500.2500, L100.0100, L3800.1700 #### [facility] [address] [place], [address] Creatinine [Mass/Vol] 0.60 mg/dL Low 0.70-1.20 [facility] Comment on above: Performed By: #### L 500.2500, L100.0100, L3800.1700 #### [facility] [address] [place], [address] GAP 11 Normal 5-15 [facility] Comment on above: Performed By: #### L 500.2500, L100.0100, L3800.1700 #### [facility] [address] [place], [address] GFR/1.73 sq M.predicted among non-blacks MDRD (S/P/Bld) [Vol rate/Area] 103 mL/min/{1.73_m2} Normal >60 [facility] Comment on above: Result Comment: mL/m in/1.73m2 CKD-EPI Creatinine Equation (2020) Performed By: #### L 500.2500, L100.0100, L3800.1700 #### [facility] [address] [place], [address] Glucose [Mass/Vol] 74 mg/dL Normal 70-99 [facility] Comment on above: Performed By: #### L 500.2500, L100.0100, L3800.1700 #### [facility] [address] [place], [address] Potassium [Moles/Vol] 4.1 mmol/L Normal 3.3-5.1 [facility] Comment on above: Performed By: #### L 500.2500, L100.0100, L3800.1700 #### [facility] [address] [place], [address] Sodium [Moles/Vol] 136 mmol/L Normal 133-145 [facility] Comment on above: Performed By: #### L 500.2500, L100.0100, L3800.1700 #### [facility] [address] [place], [address] Urea nitrogen [Mass/Vol] 12 mg/dL Normal 4-19 [facility] Comment on above: Performed By: #### L 500.2500, L100.0100, L3800.1700 #### [facility] [address] [place], [address] Basophil percentageOrdered B y: Slade Vallejesus on 09-27-2024 Basophils/100 WBC (Bld) 0.7 % 0-1 [facility] CBC W/Diff, Automatedon 09-09 Absolute Lymph 1.23 X10 3/uL Normal 0.83-4.51 [facility] Comment on above: Performed By: #### L 500.2500, L100.0100, L3800.1700 #### [facility] [address] [place], [address] Absolute Neut 3.6 X10 3/uL Normal 2.0-7.7 [facility] Comment on above: Performed By: #### L 500.2500, L100.0100, L3800.1700 #### [facility] [address] [place], [address] Basophils/100 WBC (Bld) 0.7 % Normal 0-1 [facility] Comment on above: Performed By: #### L 500.2500, L100.0100, L3800.1700 #### [facility] [address] [place], [address] Eosinophils/100 WBC (Bld) 2.5 % Normal 0-5 [facility] Comment on above: Performed By: #### L 500.2500, L100.0100, L3800.1700 #### [facility] [address] [place], [address] Erythrocyte distribution width (RBC) [Ratio] 12.8 % Normal 11.6-14.6 [facility] Comment on above: Performed By: #### L 500.2500, L100.0100, L3800.1700 #### [facility] [address] [place], [address] Hematocrit (Bld) [Volume fraction] 40.8 % Normal 37-47 [facility] Comment on above: Performed By: #### L 500.2500, L100.0100, L3800.1700 #### [facility] [address] [place], [address] Hemoglobin (Bld) [Mass/Vol] 13.8 g/dL Normal 12.0-15.0 [facility] Comment on above: Performed By: #### L 500.2500, L100.0100, L3800.1700 #### [facility] [address] [place], [address] IG% 0.700 Normal 0.0-0.9 [facility] Comment on above: Result Comment: IG% - Immature Granulocytes (promyelocytes, myelocytes and metamyelocytes) > 1% indicates that a LEFT SHIFT is Present. Performed By: #### L 500.2500, L100.0100, L3800.1700 #### [facility] [address] [place], [address] Lymphocytes/100 WBC (Bld) 20.9 % Normal 19-41 [facility] Comment on above: Performed By: #### L 500.2500, L100.0100, L3800.1700 #### [facility] [address] [place], [address] MCH (RBC) [Entitic mass] 28.6 pg Normal 27.0-32.0 [facility] Comment on above: Performed By: #### L 500.2500, L100.0100, L3800.1700 #### [facility] [address] [place], [address] MCHC (RBC) [Mass/Vol] 33.8 g/dL Normal 32-36 [facility] Comment on above: Performed By: #### L 500.2500, L100.0100, L3800.1700 #### [facility] [address] [place], [address] MCV (RBC) [Entitic vol] 84.5 fL Normal 81-99 [facility] Comment on above: Performed By: #### L 500.2500, L100.0100, L3800.1700 #### [facility] [address] [place], [address] Monocytes/100 WBC (Bld) 13.4 % High 0-10 [facility] Comment on above: Performed By: #### L 500.2500, L100.0100, L3800.1700 #### [facility] [address] [place], [address] Neutrophils/100 WBC (Bld) 61.8 % Normal 47-70 [facility] Comment on above: Performed By: #### L 500.2500, L100.0100, L3800.1700 #### [facility] [address] [place], [address] Nucleated RBC (Bld) [#/Vol] 0 10*3/uL Normal 0-5 [facility] Comment on above: Performed By: #### L 500.2500, L100.0100, L3800.1700 #### [facility] [address] [place], [address] Platelet mean volume (Bld) [Entitic vol] 8.6 fL Normal 6.2-12.0 [facility] Comment on above: Performed By: #### L 500.2500, L100.0100, L3800.1700 #### [facility] [address] [place], [address] Platelets (Bld) [#/Vol] 256 10*3/uL Normal 150-450 [facility] Comment on above: Performed By: #### L 500.2500, L100.0100, L3800.1700 #### [facility] [address] [place], [address] RBC (Bld) [#/Vol] 4.83 10*6/uL Normal 4.2-5.4 [facility] Comment on above: Performed By: #### L 500.2500, L100.0100, L3800.1700 #### [facility] [address] [place], [address] RDW SD 39.3 fl Normal 35.1-43.9 [facility] Comment on above: Performed By: #### L 500.2500, L100.0100, L3800.1700 #### [facility] [address] [place], [address] WBC (Bld) [#/Vol] 5.9 10*3/uL Normal 4.4-11.0 [facility] Comment on above: Performed By: #### L 500.2500, L100.0100, L3800.1700 #### [facility] [address] [place], [address] Carbon dioxide, total [Moles /volume] in Central venous bloodOrdered By: Slade Duarte on 09-27-2024 CO2 [Moles/Vol] 26.9 mmol/L 21.0-32.0 [facility] Chloride assayOrdered By: Ra jessica Duarte on 09-27-2024 Chloride [Moles/Vol] 98 mmol/L 98-108 [facility] Eosinophil percentageOrdered By: Slade Duarte on 09-27-2024 Eosinophils/100 WBC (Bld) 2.5 % 0-5 [facility] Erythrocyte distribution wid th ratioOrdered By: Slade Duarte on 09-27-2024 Erythrocyte distribution width (RBC) [Ratio] 12.8 % 11.6-14.6 [facility] Erythrocyte distribution wid th standard deviationOrdered By: Slade Duarte on 09-27-2024 Erythrocyte distribution width (RBC) [Ratio] 39.3 fl 35.1-43.9 [facility] Glomerular filtration rate ( GFR) estimation/1.73 sq m using serum, plasma, or whole bOrdered By: Slade Duarte on 09-27-2024 GFR/1.73 sq M.predicted among non-blacks MDRD (S/P/Bld) [Vol rate/Area] 103 mL/min/{1.73_m2} >60 [facility] Comment on above: mL/min/1.73m2 CKD-EP I Creatinine Equation (2020) Hematocrit Auto (Bld) [Volum e fraction]Ordered By: Slade Duarte on 09-27-2024 Hematocrit (Bld) [Volume fraction] 40.8 % 37-47 [facility] Hemoglobin measurementOrdere d By: Slade Duarte on 09-27-2024 Hemoglobin (Bld) [Mass/Vol] 13.8 g/dL 12.0-15.0 [facility] Immature granulocytes/100 WB C Auto (Bld)Ordered By: Slade Duarte on 09-27-2024 Immature granulocytes/100 WBC (Bld) 0.700 % 0.0-0.9 [facility] Comment on above: IG% - Immature Granu locytes (promyelocytes, myelocytes and metamyelocytes) > 1% indicates that a LEFT SHIFT is Present. MCV (mean corpuscular volume ) determinationOrdered By: Slade Duarte on 09-27-2024 MCV (RBC) [Entitic vol] 84.5 fL 81-99 [facility] Mean corpuscular hemoglobin (MCH) determinationOrdered By: Slade Duarte on 09-27-2024 MCH (RBC) [Entitic mass] 28.6 pg 27.0-32.0 [facility] Mean corpuscular hemoglobin concentration (MCHC) determinationOrdered By: Slade Duarte on 09-27-2024 MCHC (RBC) [Mass/Vol] 33.8 g/dL 32-36 [facility] Mean platelet volume determi nationOrdered By: Slade Duarte on 09-27-2024 Platelet mean volume (Bld) [Entitic vol] 8.6 fL 6.2-12.0 [facility] Monocyte percentageOrdered B y: Slade Duarte on 09-27-2024 Monocytes/100 WBC (Bld) 13.4 % High 0-10 [facility] Neutrophil percentageOrdered By: Slade Duarte on 09-27-2024 Neutrophils/100 WBC (Bld) 61.8 % 47-70 [facility] Nucleated red blood cell per centageOrdered By: Slade Duarte on 09-27-2024 Nucleated RBC/100 WBC (Bld) [Ratio] 0 % 0-5 [facility] Platelet countOrdered By: Ra jessica Duarte on 09-27-2024 Platelets (Bld) [#/Vol] 256 10*3/uL 150-450 [facility] Potassium measurement (mass/ volume)Ordered By: Slade Duarte on 09-27-2024 Potassium (Unsp spec) [Mass/Vol] 4.1 mmol/L 3.3-5.1 [facility] RBC Auto (Bld) [#/Vol]Ordere d By: Slade Duarte on 09-27-2024 RBC (Bld) [#/Vol] 4.83 10*6/uL 4.2-5.4 [facility] Serum creatinine measurement (mass/volume)Ordered By: Slade Duarte on 09-27-2024 Creatinine [Mass/Vol] 0.60 mg/dL Low 0.70-1.20 [facility] Serum glucose measurement (m ass/volume)Ordered By: Slade Duarte on 09-27-2024 Glucose [Mass/Vol] 74 mg/dL 70-99 [facility] Serum or plasma calcium rigoberto urement (mass/volume)Ordered By: Slade Duarte on 09-27-2024 Calcium [Mass/Vol] 9.8 mg/dL 7.6-11.0 [facility] Serum or plasma oxcarbazepin e measurement (mass/volume)Ordered By: Slade Duarte on 09-27-2024 OXcarbazepine [Mass/Vol] 2 ug/mL Low 10-35 [facility] Comment on above: This test was develo ped and its performance characteristicsdetermined by [employer]. It has not been cleared orapproved by the Food and Drug Administration. Detection Limit = 1Performed at: [facility] [address] [address] [place], [place] [id number] Director: Sindhu Weaver MD, Phone: [phone] Serum or plasma urea nitroge n measurement (mass/volume)Ordered By: Slade Duarte on 09-27-2024 Urea nitrogen [Mass/Vol] 12 mg/dL -19 [facility] Sodium levelOrdered By: Ash Duarte on 09-27-2024 Sodium [Moles/Vol] 136 mmol/L 133-145 [facility] Venous Duplex US - Brennen Extre mon 09-27-2024 Venous Duplex US - Brennen Extrem [facility] [address] [place] [address] Venous Duplex US - Brennen Extrem 09/27/24 1400 MR#: [id number] Acct: [id number] Name: SOCORRO GRACE Rep #: [id number] : 1965 58 From: Ed Mas MD [...] MD Date Dictated: 09/27/24 1400 Date Transcribed: 09/28/24749 It Security Manager: Signed Normal [facility] White blood cell (WBC) count Ordered By: Slade Duarte on 09-27-2024 WBC (Bld) [#/Vol] 5.9 10*3/uL 4.4-11.0 [facility] Trileptal-Oxcarbazepineon OXCARBAZEPINE 6 ug/mL Low 10-35 [facility] Comment on above: Result Comment: This test was developed and its performance characteristics determined by [employer]. It has not been cleared or approved by the Food and Drug Administration. Detection Limit = 1 Performed at: [facility] [address] [id number] Outsole Leveler: Sindhu Weaver MD, Phone: [phone] Performed By: #### L 0097.170, L500.4170, L100.0100 ####[facility] [address] [place], [address] Absolute lymphocyte countOrd ered By: Slade Duarte on 09-13-2024 Lymphocytes Auto (Unsp spec) [#/Vol] 1.16 10*3/uL 0.83-4.51 [facility] Absolute neutrophil countOrd ered By: Slade Duarte on 09-13-2024 Neutrophils (Bld) [#/Vol] 3.8 10*3/uL 2.0-7.7 [facility] Anion gap in Serum or Plasma Ordered By: Slade Duarte on 09-13-2024 Anion gap [Moles/Vol] 50 mmol/L High 5-15 [facility] Automated lymphocyte count a s percentage of total leukocytesOrdered By: Slade Duarte on 09-13-2024 Lymphocytes/100 WBC Auto (Unsp spec) 19.0 % 19-41 [facility] BUN/creatinine ratioOrdered By: Slade Duarte on 09-13-2024 Urea nitrogen/Creatinine [Mass ratio] 23.8 mg/mg High 10-20 [facility] Basophil percentageOrdered B y: Slade Duarte on 09-13-2024 Basophils/100 WBC (Bld) 1.0 % 0-1 [facility] Bilirubin, totalOrdered By: Slade Vallejesus on 09-13-2024 Bilirubin [Mass/Vol] mg/dL 0.00-1.30 [facility] CBC W/Diff, Automatedon Absolute Lymph 1.16 X10 3/uL Normal 0.83-4.51 [facility] Comment on above: Performed By: #### L 3800.1700, L500.4050, L100.0100 ####[facility] [address] [place], [address] Absolute Neut 3.8 X10 3/uL Normal 2.0-7.7 [facility] Comment on above: Performed By: #### L 3800.1700, L500.4050, L100.0100 ####[facility] [address] [place], [address] Basophils/100 WBC (Bld) 1.0 % Normal 0-1 [facility] Comment on above: Performed By: #### L 3800.1700, L500.4050, L100.0100 ####[facility] [address] [place], [address] Eosinophils/100 WBC (Bld) 2.8 % Normal 0-5 [facility] Comment on above: Performed By: #### L 3800.1700, L500.4050, L100.0100 ####[facility] [address] [place], [address] Erythrocyte distribution width (RBC) [Ratio] 12.7 % Normal 11.6-14.6 [facility] Comment on above: Performed By: #### L 3800.1700, L500.4050, L100.0100 ####[facility] [address] [place], [address] Hematocrit (Bld) [Volume fraction] 37.0 % Normal 37-47 [facility] Comment on above: Performed By: #### L 3800.1700, L500.4050, L100.0100 ####[facility] [address] [place], [address] Hemoglobin (Bld) [Mass/Vol] 13.0 g/dL Normal 12.0-15.0 [facility] Comment on above: Performed By: #### L 3800.1700, L500.4050, L100.0100 ####[facility] [address] [place], [address] IG% 0.700 Normal 0.0-0.9 [facility] Comment on above: Result Comment: IG% - Immature Granulocytes (promyelocytes, myelocytes and metamyelocytes) > 1% indicates that a LEFT SHIFT is Present. Performed By: #### L 3800.1700, L500.4050, L100.0100 ####[facility] [address] [place], [address] Lymphocytes/100 WBC (Bld) 19.0 % Normal 19-41 [facility] Comment on above: Performed By: #### L 3800.1700, L500.4050, L100.0100 ####[facility] [address] [place], [address] MCH (RBC) [Entitic mass] 29.1 pg Normal 27.0-32.0 [facility] Comment on above: Performed By: #### L 3800.1700, L500.4050, L100.0100 ####[facility] [address] [place], [address] MCHC (RBC) [Mass/Vol] 35.1 g/dL Normal 32-36 [facility] Comment on above: Performed By: #### L 3800.1700, L500.4050, L100.0100 ####[facility] [address] [place], [address] MCV (RBC) [Entitic vol] 83.0 fL Normal 81-99 [facility] Comment on above: Performed By: #### L 3800.1700, L500.4050, L100.0100 ####[facility] [address] [place], [address] Monocytes/100 WBC (Bld) 14.9 % High 0-10 [facility] Comment on above: Performed By: #### L 3800.1700, L500.4050, L100.0100 ####[facility] [address] [place], [address] Neutrophils/100 WBC (Bld) 61.6 % Normal 47-70 [facility] Comment on above: Performed By: #### L 3800.1700, L500.4050, L100.0100 ####[facility] [address] [place], [address] Nucleated RBC (Bld) [#/Vol] 0 10*3/uL Normal 0-5 [facility] Comment on above: Performed By: #### L 3800.1700, L500.4050, L100.0100 ####[facility] [address] [place], [address] Platelet mean volume (Bld) [Entitic vol] 8.5 fL Normal 6.2-12.0 [facility] Comment on above: Performed By: #### L 3800.1700, L500.4050, L100.0100 ####[facility] [address] [place], [address] Platelets (Bld) [#/Vol] 280 10*3/uL Normal 150-450 [facility] Comment on above: Performed By: #### L 3800.1700, L500.4050, L100.0100 ####[facility] [address] [place], [address] RBC (Bld) [#/Vol] 4.46 10*6/uL Normal 4.2-5.4 [facility] Comment on above: Performed By: #### L 3800.1700, L500.4050, L100.0100 ####[facility] [address] [place], [address] RDW SD 38.5 fl Normal 35.1-43.9 [facility] Comment on above: Performed By: #### L 3800.1700, L500.4050, L100.0100 ####[facility] [address] [place], [address] WBC (Bld) [#/Vol] 6.1 10*3/uL Normal 4.4-11.0 [facility] Comment on above: Performed By: #### L 3800.1700, L500.4050, L100.0100 ####[facility] [address] [place], [address] Carbon dioxide, total [Moles /volume] in Central venous bloodOrdered By: Slade Duarte on 09-13-2024 CO2 [Moles/Vol] 22.4 mmol/L 21.0-32.0 [facility] Chloride assayOrdered By: Ra jessica Duarte on 09-13-2024 Chloride [Moles/Vol] 80 mmol/L Low 98-108 [facility] Comprehensive Metabolic Prof ilon 09-13-2024 Albumin [Mass/Vol] 4.3 g/dL Normal 3.4-4.8 [facility] Comment on above: Performed By: #### L 3800.1700, L500.4050, L100.0100 ####[facility] [address] [place], [address] Albumin/Globulin [Mass ratio] 1.6 {ratio} Normal 0.9-2.4 [facility] Comment on above: Performed By: #### L 3800.1700, L500.4050, L100.0100 ####[facility] [address] [place], [address] ALK PHOS 117 U/L High 35-104 [facility] Comment on above: Performed By: #### L 3800.1700, L500.4050, L100.0100 ####[facility] [address] [place], [address] ALT [Catalytic activity/Vol] 29 U/L Normal <=34 [facility] Comment on above: Performed By: #### L 3800.1700, L500.4050, L100.0100 ####[facility] [address] [place], [address] AST [Catalytic activity/Vol] 21 U/L Normal <=31 [facility] Comment on above: Performed By: #### L 3800.1700, L500.4050, L100.0100 ####[facility] [address] [place], [address] BUN/CRE 23.8 RATIO High 10-20 [facility] Comment on above: Performed By: #### L 3800.1700, L500.4050, L100.0100 ####[facility] [address] [place], [address] Calcium [Mass/Vol] 9.3 mg/dL Normal 7.6-11.0 [facility] Comment on above: Performed By: #### L 3800.1700, L500.4050, L100.0100 ####[facility] [address] [place], [address] Chloride [Moles/Vol] 80 mmol/L Low 98-108 [facility] Comment on above: Performed By: #### L 3800.1700, L500.4050, L100.0100 ####[facility] [address] [place], [address] CO2 [Moles/Vol] 22.4 mmol/L Normal 21.0-32.0 [facility] Comment on above: Performed By: #### L 3800.1700, L500.4050, L100.0100 ####[facility] [address] [place], [address] Creatinine [Mass/Vol] 0.51 mg/dL Low 0.70-1.20 [facility] Comment on above: Performed By: #### L 3800.1700, L500.4050, L100.0100 ####[facility] [address] [place], [address] GAP 50 High 5-15 [facility] Comment on above: Performed By: #### L 3800.1700, L500.4050, L100.0100 ####[facility] [address] [place], [address] GFR/1.73 sq M.predicted among non-blacks MDRD (S/P/Bld) [Vol rate/Area] 107 mL/min/{1.73_m2} Normal >60 [facility] Comment on above: Result Comment: mL/m in/1.73m2 CKD-EPI Creatinine Equation (2020) Performed By: #### L 3800.1700, L500.4050, L100.0100 ####[facility] [address] [place], [address] Globulin (S) [Mass/Vol] 2.7 g/dL Normal 2.2-4.2 [facility] Comment on above: Performed By: #### L 3800.1700, L500.4050, L100.0100 ####[facility] [address] [place], [address] Glucose [Mass/Vol] 100 mg/dL High 70-99 [facility] Comment on above: Performed By: #### L 3800.1700, L500.4050, L100.0100 ####[facility] [address] [place], [address] Potassium [Moles/Vol] 4.5 mmol/L Normal 3.3-5.1 [facility] Comment on above: Performed By: #### L 3800.1700, L500.4050, L100.0100 ####[facility] [address] [place], [address] Sodium [Moles/Vol] 152 mmol/L High 133-145 [facility] Comment on above: Performed By: #### L 3800.1700, L500.4050, L100.0100 ####[facility] [address] [place], [address] T BILI < 0.15 Normal 0.00-1.30 [facility] Comment on above: Performed By: #### L 3800.1700, L500.4050, L100.0100 ####[facility] [address] [place], [address] T PROT 7.0 g/dL Normal 5.9-8.4 [facility] Comment on above: Performed By: #### L 3800.1700, L500.4050, L100.0100 ####[facility] [address] [place], [address] Urea nitrogen [Mass/Vol] 12 mg/dL Normal 4-19 [facility] Comment on above: Performed By: #### L 3800.1700, L500.4050, L100.0100 ####[facility] [address] [place], [place], [address] Eosinophil percentageOrdered By: Slade Duarte on 09-13-2024 Eosinophils/100 WBC (Bld) 2.8 % 0-5 [facility] Erythrocyte distribution wid th ratioOrdered By: Slade [facility] on 09-13-2024 Erythrocyte distribution width (RBC) [Ratio] 12.7 % 11.6-14.6 [facility] Erythrocyte distribution wid th standard deviationOrdered By: Slade [facility] on 09-13-2024 Erythrocyte distribution width (RBC) [Ratio] 38.5 fl 35.1-43.9 [facility] Glomerular filtration rate ( GFR) estimation/1.73 sq m using serum, plasma, or whole bOrdered By: Slade [facility] on 09-13-2024 GFR/1.73 sq M.predicted among non-blacks MDRD (S/P/Bld) [Vol rate/Area] 107 mL/min/{1.73_m2} >60 [facility] Comment on above: mL/min/1.73m2 CKD-EP I Creatinine Equation (2020) Hematocrit Auto (Bld) [Volum e fraction]Ordered By: Sladekevin Duarte on 09-13-2024 Hematocrit (Bld) [Volume fraction] 37.0 % 37-47 [facility] Hemoglobin measurementOrdere d By: Slade [facility] on 09-13-2024 Hemoglobin (Bld) [Mass/Vol] 13.0 g/dL 12.0-15.0 [facility] Immature granulocytes/100 WB C Auto (Bld)Ordered By: Sladekevin Duarte 09-13-2024 Immature granulocytes/100 WBC (Bld) 0.700 % 0.0-0.9 [facility] Comment on above: IG% - Immature Granu locytes (promyelocytes, myelocytes and metamyelocytes) > 1% indicates that a LEFT SHIFT is Present. Laboratory - Chemistry and C hemistry - challengeOrdered By: Slade Duarte on 09-13-2024 AST [Catalytic activity/Vol] 21 U/L <32 [facility] MCV (mean corpuscular volume ) determinationOrdered By: Slade Duarte on 09-13-2024 MCV (RBC) [Entitic vol] 83.0 fL 81-99 [facility] Mean corpuscular hemoglobin (MCH) determinationOrdered By: Slade Duarte on 09-13-2024 MCH (RBC) [Entitic mass] 29.1 pg 27.0-32.0 [facility] Mean corpuscular hemoglobin concentration (MCHC) determinationOrdered By: Slade Duarte on 09-13-2024 MCHC (RBC) [Mass/Vol] 35.1 g/dL 32-36 [facility] Mean platelet volume determi nationOrdered By: Slade Duarte on 09-13-2024 Platelet mean volume (Bld) [Entitic vol] 8.5 fL 6.2-12.0 [facility] Monocyte percentageOrdered B y: Slade Duarte on 09-13-2024 Monocytes/100 WBC (Bld) 14.9 % High 0-10 [facility] Neurology Visit Reporton Neurology Visit Report [facility] [address] [facility], [address] [place] [address] OFFICE VISIT Date of Service: 09/13/24 MR#: [id number] Acct: [id number] Name: SOCORRO GRACE Rep #: [id number] : 1965 Provider: Dr. Slade lugo MD Age/Sex: 58/F Location: [facility] Status: Signed with Addenda ADDENDUM by Dr. Slade Duarte MD on 02/10/25 at 1201 HPI Details: SOCORRO GRACE is a 59 F who presents to the office today for Assessment and Plan Assessment and Plan (1) History of varicose veins: Status: Acute (2) Left-sided trigeminal neuralgia: Status: Acute (3) Multiple sclerosis: Status: Acute (4) History of vitamin D deficiency: Status: Resolved (5) Edema: Status: Acute (6) Fatigue: Status: Acute Orders: Orders Venous Duplex US - Brennen Extrem 09/27/24 I87.2 - Venous insufficiency (chronic) (peripheral), Z86.79 - Personal history of other diseases of the circulatory system Comprehensive Metabolic Profil 09/13/24 G50.0 - Trigeminal neuralgia Trileptal-Oxcarbazepine 09/13/24 G50.0 - Trigeminal neuralgia CBC W/Diff, Automated 09/13/24 G50.0 - Trigeminal neuralgia Basic Metabolic Profile (BMP) 09/27/24 G35 - Multiple sclerosis Medications: New oxcarbazepine 150 mg PO BID 60 tabs 6RF Refilled amantadine HCl 100 mg PO TID 90 caps 6RF cyclobenzaprine 10 mg PO .Nightly 60 tabs 6RF muscle spasm gabapentin 400 mg PO TID 90 caps 6RF hydroxyzine HCl 10 mg PO BID 60 tabs 6RF Nausea/dizziness magnesium oxide 400 mg PO DAILY 30 tabs 6RF orphenadrine citrate ER 100 mg PO .Nightly 30 tabs 6RF muscle spasm teriflunomide (Aubagio) 14 mg PO DAILY 30 tabs 6RF Discontinued oxcarbazepine Discontinued Reason: Discontinued by PCP/other physicians 300 mg PO BID 60 tabs 5RF Addendum Addendum (02/10/2025): The patient has developed skin redness and 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 Amantadine will be discontinued. 02/10/25 1201 Date Slade Duarte MD cc: * Signed ADDENDUM by Dr. Slade Duarte MD on 10/27/24 at 1708 Addendum Addendum (10/27/2024): The patient will be discontinuing oxcarbazepine and will try a topical anwo-pah-ycgiask ointment (DMSO cream) for her trigeminal neuralgia [...] 3000 mcg orally 3 times per week. 09/15/241751 Date Slade Duarte MD cc: * Signed [...] vision fluctuates). Stable bilateral optic pallor (left greate (more content not included)... Normal [facility] Neutrophil percentageOrdered By: Slade Duarte on 09-13-2024 Neutrophils/100 WBC (Bld) 61.6 % 47-70 [facility] Nucleated red blood cell per centageOrdered By: Slade Duarte on 09-13-2024 Nucleated RBC/100 WBC (Bld) [Ratio] 0 % 0-5 [facility] Platelet countOrdered By: Ra jessica Duarte on 09-13-2024 Platelets (Bld) [#/Vol] 280 10*3/uL 150-450 [facility] Potassium measurement (mass/ volume)Ordered By: Slade Duarte on 09-13-2024 Potassium (Unsp spec) [Mass/Vol] 4.5 mmol/L 3.3-5.1 [facility] RBC Auto (Bld) [#/Vol]Ordere d By: Slade Duarte on 09-13-2024 RBC (Bld) [#/Vol] 4.46 10*6/uL 4.2-5.4 [facility] Serum creatinine measurement (mass/volume)Ordered By: Slade Duarte on 09-13-2024 Creatinine [Mass/Vol] 0.51 mg/dL Low 0.70-1.20 [facility] Serum globulin measurementOr dered By: Slade Duarte on 09-13-2024 Globulin (S) [Mass/Vol] 2.7 g/dL 2.2-4.2 [facility] Serum glucose measurement (m ass/volume)Ordered By: Slade Duarte 09-13-2024 Glucose [Mass/Vol] 100 mg/dL High 70-99 [facility] Serum or plasma alanine jimenez otransferase (ALT) measurementOrdered By: Slade Duarte on 09-13-2024 ALT [Catalytic activity/Vol] 29 U/L <35 [facility] Serum or plasma albumin rigoberto urement (mass/volume)Ordered By: Slade Duarte on 09-13-2024 Albumin [Mass/Vol] 4.3 g/dL 3.4-4.8 [facility] Serum or plasma albumin/glob ulin mass ratioOrdered By: Slade Duarte on 09-13-2024 Albumin/Globulin [Mass ratio] 1.6 {ratio} 0.9-2.4 [facility] Serum or plasma alkaline nat sphatase measurementOrdered By: Slade Duarte on 09-13-2024 ALP [Catalytic activity/Vol] 117 U/L High 35-104 [facility] Serum or plasma calcium rigoberto urement (mass/volume)Ordered By: Salde Duarte on 09-13-2024 Calcium [Mass/Vol] 9.3 mg/dL 7.6-11.0 [facility] Serum or plasma oxcarbazepin e measurement (mass/volume)Ordered By: Slade Duarte on 09-13-2024 OXcarbazepine [Mass/Vol] 6 ug/mL Low 10-35 [facility] Comment on above: This test was develo ped and its performance characteristicsdetermined by [employer]. It has not been cleared orapproved by the Food and Drug Administration. Detection Limit = 1Performed at: [facility] [address] [id number] Director: Sindhu Weaver MD, Phone: [phone] Serum or plasma urea nitroge n measurement (mass/volume)Ordered By: Slade Duarte on 09-13-2024 Urea nitrogen [Mass/Vol] 12 mg/dL -19 [facility] Sodium levelOrdered By: Ash Duarte on 09-13-2024 Sodium [Moles/Vol] 152 mmol/L High 133-145 [facility] Total proteinOrdered By: Jalen Duarte on 09-13-2024 Protein [Mass/Vol] 7.0 g/dL 5.9-8.4 [facility] White blood cell (WBC) count Ordered By: Slade Duarte on 09-13-2024 WBC (Bld) [#/Vol] 6.1 10*3/uL 4.4-11.0 [facility] BASIC METABOLIC PANEL WITH A NION GAPon 08-28-2024 BUN/CREATININE RATIO SEE NOTE: Normal 6-22 [facility] Comment on above: Result Comment: Not Reported: BUN and Creatinine are within reference range. Performed By: #### 9 2498 #### [facility] of [address], [address] [place] [address] Medical Secretary Receptionist: Hubert Mayers MD Calcium [Mass/Vol] 9.5 mg/dL Normal 8.6-10.4 [facility] Comment on above: Performed By: #### 9 2498 #### [facility] of [address], [address] [place] [address] Medical Secretary Receptionist: Hubert Mayers MD Chloride [Moles/Vol] 93 mmol/L Low 98-110 [facility] Comment on above: Performed By: #### 9 2498 #### [facility] [place] [address] Medical Secretary Receptionist: Hubert Mayers MD CO2 [Moles/Vol] 26 mmol/L Normal 20-32 [facility] Comment on above: Performed By: #### 9 2498 #### [facility] of [address], [address] [place] [address] Medical Secretary Receptionist: Hubert Mayers MD Creatinine [Mass/Vol] 0.53 mg/dL Normal 0.50-1.[address] [facility] Comment on above: Performed By: #### 9 2498 #### [facility] of [place] [address] Medical Secretary Receptionist: Hubert Mayers MD ELECTROLYTE BALANCE 10 mmol/L (calc) Normal 7-17 [facility] Comment on above: Performed By: #### 9 2498 #### [facility] of [place] [address] Medical Secretary Receptionist: Hubert Mayers MD GFR/1.73 sq M.predicted among non-blacks MDRD (S/P/Bld) [Vol rate/Area] 106 mL/min/{1.73_m2} Normal > OR = 60 [facility] Comment on above: Performed By: #### 9 2498 #### [facility] of [address], [address] [place] [address] Medical Secretary Receptionist: Hubert Mayers MD Glucose [Mass/Vol] 88 mg/dL Normal 65-99 [facility] Comment on above: Result Comment: Fasting reference interval Performed By: #### 9 2498 #### [facility] of [address], [address] [place] [address] Medical Secretary Receptionist: Hubert Mayers MD Potassium [Moles/Vol] 4.7 mmol/L Normal 3.5-5.[address] [facility] Comment on above: Performed By: #### 9 2498 #### [facility] of [address], [address] [place] [address] Medical Secretary Receptionist: Hubert Mayers MD Sodium [Moles/Vol] 129 mmol/L Low 135-146 [facility] Comment on above: Performed By: #### 9 2498 #### [facility] of [address], [address] [place] [address] Medical Secretary Receptionist: Hubert Mayers MD Urea nitrogen [Mass/Vol] 17 mg/dL Normal 7-25 [facility] Comment on above: Performed By: #### 9 2498 #### [facility] [place] [address] Medical Secretary Receptionist: Hubert Mayers MD Magnetic resonance imaging r eportOrdered By: Shaji Corona on 07-03-2024 Study report [facility] Imaging Services [address] [place] [address] [id number] Spine Thoracic W/WO Contrast MR#: [id number] Acct: [id number] Name: SOCORRO GRACE Rep #: [id number] : 1965 F 58 From: Ken Corona DO PCP: FRANCI Perez Status: REG CLI Study:Spine Thoracic W/WO Contrast Date of E xam: 07/02/24 Exam# [id number] Ordering Dr: Slade Duarte MD PROCEDURE: MRI [...] vertebral body hemangioma. Reading Location: [facility] CC: SPLICING SUPERVISOR-C Laisha Javier; Dr. Slade Duarte MD ~ It Security Manager: Signed [facility] Magnetic resonance imaging r eportOrdered By: Shaji Corona on 07-02-2024 Study report [facility] Imaging Services [address] [place] [address] Spine Cervical W/WO Contrast MR#: [id number] Acct: [id number] Name: SOCORRO GRACE Rep #: [id number] : 1965 F 58 From: Ken Corona DO PCP: FRANCI Perez Status: REG CLI Study:Spine Cervical W/WO Contrast Date of E xam: 07/02/24 Exam# [id number] Ordering Dr: Slade Duarte MD PROCEDURE: MRI [...] at C5-6 categorized as severe. Reading Location: [facility] CC: FRANCI Javier; Dr. Slade Duarte MD ~ It Security Manager: Signed [facility] Spine Cervical W/WO Contrast on 07-02-2024 Spine Cervical W/WO Contrast [facility] Imaging Services [address] [place] [address] Spine Cervical W/WO Contrast MR#: [id number] Acct: [id number] Name: SOCORRO GRACE Rep #: [id number] : 1965 F 58 From: Shaji Garza PCP: FRANCI Perez Status: [facility] Study: Spine Cervical W/WO Contrast Date of Exam: Exam# [id number] Ordering Dr: Slade Duarte MD ADDENDUM by Dr. Shaji Corona DO on 07/20/24 at 1405 13 mL of intravenous Clariscan was administered. Reading Location: [facility] 07/20/24 1406 Date cc: FRANCI Javier; Dr. Sldae Duarte MD * Signed PROCEDURE: MRI cervical [...] CC: FRANCI Javier; Dr. Slade Duarte MD It Security Manager: Signed Normal [facility] Spine Thoracic W/WO Contrast on 07-02-2024 Spine Thoracic W/WO Contrast [facility] Imaging Services [place] [address] Spine Thoracic W/WO Contrast MR#: [id number] Acct: [id number] Name: SOCORRO GRACE Rep #: [id number] : 1965 F 58 From: Shaji Garza PCP: FRANCI Perez Status: DEP CLI Study: Spine Thoracic W/WO Contrast Date of Exam: Exam# [id number] Ordering Dr: Slade Duarte MD ADDENDUM by Dr. Shaji Corona DO on 07/20/24 at 1405 13 mL of intravenous Clariscan was administered. Reading Location: [facility] 07/20/24 1405 Date cc: FRANCI Javier; Dr. Slade Duarte [...] CC: FRANCI Javier; Dr. Slade Duarte MD It Security Manager: Signed Normal [facility] Neurology Visit Reporton Neurology Visit Report [facility] [address] [facility], [address] [place] [address] OFFICE VISIT Date of Service: 05/31/24 MR#: [id number] Acct: [id number] Name: SOCORRO GRACE Rep #: [id number] : 1965 Provider: Dr. Slade lugo MD Age/Sex: 58/F Location: [facility].BN Status: Signed with Addenda ADDENDUM by Dr. [...] and urgency (more content not included)... Normal [facility] CNOVon 05-04-2024 [facility] Office Visit (UROLMD ) -- SOCORRO GRACE ([id number]) 1965 [facility] Date Time Provider Department 05/04/24 10:20 AM DIMPLE SALAZAR UROLMD During your visit today, we recorded the following information about you: Weight Height 66.7 kg 1.676 m Dimple Salazar, NYLON MACHINE OPERATOR.[facility] 05/04/2024 10:56 AM Signed Socorro Sutton Sanjay is a 58 year old female who [...] with certainty. MS (multiple sclerosis) ([facility]) 2006 Dr. Buckley Osteopenia hip, spine. [...] pain. RESPIR (more content not included)... Normal [facility] DIP, URINE (POC)on 12-24- 2024 BILIRUBIN UA (POCT) Negative Negative [facility] CLARITY UA (POCT) Clear [facility] COLOR UA (POCT) Yellow [facility] GLUCOSE UA (POCT) Negative Negative mg/dL [facility] Hemoglobin Ql (U) Negative Negative [facility] Interpretation and review of laboratory results Abnormal [facility] KETONE UA (POCT) Negative Negative mg/dL [facility] LEUKOCYTES UA (POCT) Trace Abnormal Negative [facility] NITRITE UA (POCT) Negative Negative [facility] PH UA (POCT) 7.0 4.5 - 8.0 [facility] Protein Ql (U) Negative Negative mg/dL [facility] SPECIFIC GRAVITY UA (POCT) 1.015 1.005 - 1.030 [facility] UROBILINOGEN UA (POCT) 0.2 Deneen l E.U./dL [facility] Location:[address], [id number] [place] [address] POINT OF CARE [facility] Brain W/WO Contraston 2023 Brain W/WO Contrast [facility] Imaging Services [address] [place] [address] [id number] Brain W/WO Contrast MR#: [id number] Acct: [id number] Name: SOCORRO GRACE Lesley Rep #: [id number] : 1965 F 58 From: Lawrence Rdz PCP: Care Physician,No Primary Status: REG CL Study: Brain W/WO Contrast Date of Exam: 04/19/24 Exam# [id number] Ordering Dr: Slade Duarte MD [id number] INDICATION: Left trigeminal neuralgia-without chin pain ; [...] Slade Duarte MD; No Primary Care Physician It Security Manager: Signed Normal [facility] CREATININE FINGERSTICKon CREATININE WB < 1.0 Normal 0.55-1.02 [facility] Comment on above: Performed By: #### L 9100.0200 #### [facility] [address] [place], [address] EGFR WB > 60.0000 Normal >60 [facility] Comment on above: Performed By: #### L 9100.0200 #### [facility] [address] [place], [address] Creatinine measurement at dsideOrdered By: Slade Duarte on 04-19-2024 Bedside Creatinine < 1.0 mg/dL 0.55-1.02 [facility] EGFROrdered By: Slade lugo on 04-19-2024 Bedside Estimated GFR (eGFR) > 60.0000 mL/min >60 [facility] 36on 04-12-2024 36 S: Patient is return [...] NON-URGENT Protocols used: PCP Call - [facility] S: Patient spoke wit h CAC nurse regarding body aches, fever, cold symptoms [...] will likely have to to to the [facility] minute clinic R: Patient understands care advice. Patient instructed to call back with new or worsening symptoms. Message sent to the provider's office for review and recommendations HP Reason for Disposition [1] HIGH RISK patient AND [2] influenza is widespread in the community AND [3] ONE OR MORE respiratory symptoms: cough, sore throat, runny or stuffy nose Protocols used: Coronavirus (COVID-19) Diagnosed or [facility] 03-29-2024 36 Name of caller: Socorro Contact phone number: [phone] Relationship to Patient: patient Provider: Dr. Stacy [...] would like these lab orders faxed to #[phone] attention lab [facility]. Patient is requesting a call back to be informed and states that a voicemail can be left. Please advise. Best time of day caller can be reached: Any Patient advised that office/PCP has 24-48 business hours to return their call: No [facility] 10-Hydroxycarbazepineon 03-12 10-Hydroxycarbazepine [Mass/Vol] 2.1 ug/mL Low 10.0-35.0 [facility] Comment on above: Result Comment: INTE RPRETIVE INFORMATION: Oxcarbazepine Metabolite, Serum Therapeutic Range: 10.0 - 35.0 ug/mL Toxic Range: >=40.0 ug/mL This test measures monohydroxyoxcarbazepine (MHD). Adverse effects may include dizziness, fatigue, nausea, headache, somnolence, ataxia, and tremor. Performed By: [facility] [address] [place] [address] Securities Sales Associate: Luis M Mccracken MD, PhD CLIA Number: [id number] Performed By: #### 3 1019-3 #### ROBIN SHANE (BEAKER) ([id number]) [address] [place] [address] CBC panel Auto (Bld)on 03-27 Erythrocyte distribution width (RBC) [Ratio] 12.8 % Normal 11.5-14.5 [facility] Comment on above: Performed By: #### 5 8410-2 #### RAFI KENDALL ([id number]) [facility] ([facility]) [address] [place] [address] Hematocrit (Bld) [Volume fraction] 45.1 % Normal 36.0-46.0 [facility] Comment on above: Performed By: #### 5 8410-2 #### RAFI KENDALL ([id number]) [facility] ([facility]) [address] [place] [address] 38477 Hemoglobin (Bld) [Mass/Vol] 15.1 g/dL Normal 12.0-16.0 [facility] Comment on above: Performed By: #### 5 8410-2 #### RAFI KENDALL ([id number]) [facility] ([facility]) [address] [place] [address]3024 MCH (RBC) [Entitic mass] 28.3 pg Normal 26.0-34.0 [facility] Comment on above: Performed By: #### 5 8410-2 #### RAFI KENDALL ([id number]) [facility] ([facility]) [address] [place] [address] 64772 MCHC (RBC) [Mass/Vol] 33.5 g/dL Normal 32.0-36.0 [facility] Comment on above: Performed By: #### 5 8410-2 #### RAFI KENDALL ([id number]) [facility] ([facility]) [address] [place] [address] 58474 MCV (RBC) [Entitic vol] 85 fL Normal 80-100 [facility] Comment on above: Performed By: #### 5 8410-2 #### RAFI KENDALL ([id number]) [facility] ([facility]) [address] [place] [address] 79052 Nucleated RBC/100 WBC (Bld) [Ratio] 0.0 /100 WBCs Normal 0.0-0.0 [facility] Comment on above: Performed By: #### 5 8410-2 #### RAFI KENDALL ([id number]) [facility] ([facility]) [address] [place] [address] 34765 Platelets (Bld) [#/Vol] 242 x10*3/uL Normal 150-450 [facility] Comment on above: Performed By: #### 5 8410-2 #### RAFI KENDALL ([id number]) [facility] ([facility]) [address] [place] [address] RBC (Bld) [#/Vol] 5.34 x10*6/uL High 4.00-5.[address] [facility] Comment on above: Performed By: #### 5 8410-2 #### RAFI KENDALL ([id number]) [facility] ([facility]) [address] [place], [place] [address] WBC (Bld) [#/Vol] 6.0 x10*3/uL Normal 4.4-11.3 [facility] Comment on above: Performed By: #### 5 8410-2 #### RAFI KENDALL ([id number]) [facility] ([facility]) [address] [place] [address] Comprehensive metabolic 2000 panelon 03-27-2024 Albumin BCP dye [Mass/Vol] 4.5 g/dL Normal 3.4-5.0 [facility] Comment on above: Performed By: #### 2 4323-8 #### RAFI KENDALL ([id number]) [facility] ([facility]) [address] [place] [address]4465 ALP [Catalytic activity/Vol] 109 U/L Normal 33-136 [facility] Comment on above: Performed By: #### 2 4323-8 #### RAFI KENDALL ([id number]) [facility] ([facility]) [address] [place] [address] 38595 ALT With P-5'-P [Catalytic activity/Vol] 32 U/L Normal 7-45 [facility] Comment on above: Result Comment: Nhung ents treated with Sulfasalazine may generate falsely decreased results for ALT. Performed By: #### 2 4323-8 #### RAFI KENDALL ([id number]) [facility] ([facility]) [address] [place] [address] Anion gap [Moles/Vol] 12 mmol/L Normal 10-20 [facility] Comment on above: Performed By: #### 2 4323-8 #### RAFI KENDALL ([id number]) [facility] ([facility]) [address] [place] [address] AST With P-5'-P [Catalytic activity/Vol] 21 U/L Normal 9-39 [facility] Comment on above: Performed By: #### 2 432-8 #### RAFI KENDALL ([id number]) [facility] ([facility]) [address] [place] [address] Bilirubin [Mass/Vol] 0.7 mg/dL Normal 0.0-1.[address] [facility] Comment on above: Performed By: #### 2 432-8 #### RAFI KENDALL ([id number]) [facility] ([facility]) [address] [place] [address] Calcium [Mass/Vol] 9.0 mg/dL Normal 8.6-10.3 [facility] Comment on above: Performed By: #### 2 4323-8 #### RAFI KENDALL ([id number]) [facility] ([facility]) [address] [place] [address] Chloride [Moles/Vol] 99 mmol/L Normal 98-[address] [facility] Comment on above: Performed By: #### 2 4323-8 #### RAFI KENDALL ([id number]) [facility] ([facility]) [address] [place] [address] CO2 [Moles/Vol] 24 mmol/L Normal 21-32 [facility] Comment on above: Performed By: #### 2 4323-8 #### RAFI KENDALL ([id number]) [facility] ([facility]) [address] [place] [address]65[address] Creatinine [Mass/Vol] 0.60 mg/dL Normal 0.50-1.05 [facility] Comment on above: Performed By: #### 2 4323-8 #### RAFI KENDALL ([id number]) [facility] ([facility]) [address] [place] [address] 22504 GFR/1.73 sq M.predicted MDRD (S/P/Bld) [Vol rate/Area] mL/min/{1.73_m2} Normal >60 [facility] Comment on above: Result Comment: Calc ulations of estimated GFR are performed using the 2020 CKD-EPI Study Refit equation without the race variable for the IDMS-Traceable creatinine methods. https://jasn.asnjournals.org/content//ASN.18809 98308 Performed By: #### 2 4323-8 #### RAFI KENDALL ([id number]) [facility] ([facility]) [address] [place] [address]16 Glucose [Mass/Vol] 79 mg/dL Normal 74-99 [facility] Comment on above: Performed By: #### 2 4323-8 #### RAFI KENDALL ([id number]) [facility] ([facility]) [address] [place] [address] 16807 Potassium [Moles/Vol] 4.3 mmol/L Normal 3.5-5.3 [facility] Comment on above: Performed By: #### 2 4323-8 #### RAFI KENDALL ([id number]) [facility] ([facility]) [address] [place] [address] 70142 Protein [Mass/Vol] 7.0 g/dL Normal 6.4-8.2 [facility] Comment on above: Performed By: #### 2 4323-8 #### RAFI KENDALL ([id number]) [facility] ([facility]) [address] [place] [address]305 Sodium [Moles/Vol] 131 mmol/L Low 136-145 [facility] Comment on above: Performed By: #### 2 4323-8 #### MCKEE FAIZA ([id number]) [facility] ([facility]) [facility] [place] [address] Urea nitrogen [Mass/Vol] 8 mg/dL Normal 6-23 [facility] Comment on above: Performed By: #### 2 4323-8 #### RAFI KENDALL ([id number]) [facility] ([facility]) [address] [place] [id number] CNPNon 03-22-2024 CNPN Telephone (UROLMD) -- SOCORRO GRACE ([id number]) 1965 F Date Time Provider Department 03/22/24 DIMPLE SALAZAR URODRE During your visit today, we recorded the following information about you: Kavya Lancaster, RN 03/22/2024 2:53 PM Signed Patient calling [...] Date Reviewed: 08/19/2023 Reviewed by: Dimple Salazar, NYLON MACHINE OPERATOR.MACHINE ERECTOR - Fully Assessed Reason for Visit: Follow [...] 12/19/2017 S/P hysterectomy [Z90.710] MS (multiple sclerosis) (HCC) [G35] 05/12/2006 12/19/2017 Depression [F32.A] Vitamin D deficiency [E55.9] SOCORRO (generalized anxiety disorder) [F41.1] Colon cancer screening [Z12.11] 10/21/2017 12/19/2017 Family hx of colon cancer [Z80.0] 10/21/2017 Falls [R29.6] 12/26/2017 Fatigue [R53.83] 12/26/2017 MS (multiple sclerosis) (HCC) [G35] 05/12/2006 Tobacco abuse [Z72.0] 01/02/2021 LAM positive [R76.8] 08/19/2018 Snoring [R06.83] Hypercholesterolemia [E78.00] 04/06/2021 Hyponatremia [E87.1] 07/26/2023 07/27/2023 Hemiparesis, left (HCC) [G81.94] 07/26/2023 Hypophosphatemia [E83.39] 07/27/2023 Migraine headache [G43.909] 07/27/2023 Encounter Status:Closed by KAVYA LANCASTER on 03/22/24 Normal [facility] DBT Breast - bilateralon No mammographic evid ence of malignancy. BI-RADS CATEGORY: BI-RADS Category: 1 Negative. Recommendation: Routine Screening Mammogram in 1 Year. Recommended Date: 1 Year. Laterality: Bilateral. MACRO: None Signed by: Juan Luis Grimm 02/17/2024 12:30 PM Dictation workstation: [id number] MMODAL Interpreted By: Juan Luis Torres, STUDY: BI MAMMO BILATERAL SCREENING TOMOSYNTHESIS; 02/17/2024 10:23 am ACCESSION NUMBER(S): [id number] ORDERING CLINICIAN: AGUSTINA STACY INDICATION: Screening. COMPARISON: [...] SCREENING TOMOSYNTHESIS; 02/17/2024 10:23 am ACCESSION NUMBER(S): [id number] ORDERING CLINICIAN: AGUSTINA STACY INDICATION: Screening. COMPARISON: [...] Luis Grimm 02/17/2024 12:30 PM Dictation workstation: [id number] [facility] Work Phone: Radiology Study observation (narrative) [facility] Work Phone: DBT Breast - bilateralOrdere d By: Juan Luis Grimm on 02-17-2024 [facility] Work Phone: Surgical pathology studyOrde red By: Jessika Flowers on 02-10-2024 Laboratory comment Marcelo (Report) o7echUSnUKUcd6esNFSpuKNhUb EwMzNcZnRuYmpcdWMxIHtccnRm APnfi8KpJ7BlRgHfEOyetzHlHH IkFeffrlpqXZXqCRK9zhCsSQTn MVegFOYtJXkxXj6ciFTyvWnuSl OdYCAvu7bfblXNTTgjSLSRZJe8 z7tyZEPbSlP1uGRqOIivM9gdjl QkhSEvD8Ibl4DuJBk9rX18VHNq bE8gvTWbEJyssaSnJnY1JBcoSY GiGbI4VMAfwJVdNTFsE5ohFPNi TBajAGXyCImfxLZlACA2dVjqj6 R7xAKcaQWifNfaOaIfFwPjFsBA h7SjEXc4bZbbM2YzVYLxAbQ1jA XhYZUlOOmcHNQbAWEfyeM2aM57 RMmhqkL8fHVcd4Eot03pc026zO 8esLDsHKL9BSGgCWWdsCBuAYOn DWX9OOQrhNUvU3wqBdKbsPHsF5 FgLkRdsIFwL1BqOyYwaBQvH8Np EbUkoLTrSLRdnAJ3PMcfw292RO Y9EiPmPC4nZ2Osv1W0hL1xnSWu TJCfcEGgRtLvGPWkph6flEAhPQ oso8HlVRH2nhU5kWNpeKHyHVQy CQ47Qbpqn7BgWizhOJF6OIVvzw Tqk4Oag4dpItSjgxXtP1rdO1Va OHNuFLXxLBXcVgVvadMrn5Vzr2 HsoLYtbHp2v5ipDBOiABPazVvl x2onNQS4NLRfH3C8oSAty0prEN hfODXswST7ceB5IVkhVFTlapN3 wmD7JRojYSIjhYH1zqU6TFsqXJ ZaZwQ7zkQ4IGvbYBStPWV6FwAi GKOqq1RteghfClFos8KtnUYsTG ciF68tg256RRFiscSsP6vbbAHn klevbVNdcdqfTTrbmjG7JWFxWZ BsYWluXGYxXGZzMjBcbGFuZzEw MzNcaGljaFxmMVxkYmNoXGYxXG neJ0fsFlSoXkJxFUPMwHA4gVMs r2gryfJ0hRBsLB9rLFWwcZGyvd Tiw8B6PKS5rRWcfK3axOSkQXJb vPCyaaFsxx86kONcgYR4UFZxUE RgzPHfjL8dDJDnNJAUeI9fhPRH jeIlgfQzQWNffRxina9HlKLwlv 1shHJxC1YmxCvnfMIeSSJdQGHi wZldtJSgGBScTEVvbipmk5BuZF YxxIRpU4NqTI1pBEAxfd18 [facility] Work Phone: Pathology report Cancer Narrative Surgical Pathology Case: [id number] Authorizing Provider: Hugo Redding DO Collected: 02/03/2024 1245 Ordering Location: [facility] Received: 02/03/[address] [place] [address] Pathologist: Jessika Flowers MD Specimen: COLON - TRANSVERSE POLYP [facility] Work Phone: Pathology report final diagnosis Narrative r0edbXSaGULwlPTgTDbtFnvllb AgISImuRWiT7NackomOAbvYT9v NL4ouEogoOKmsLTgLXWkDmHjj6 xam541tGGde1chCPYVemauvRb1 eQsvR29lt0A6EwuvX8vmFSKrIR tdZECxULbvzWOdSXf3CGUbrJSr qsSmNxSuRKLyfEDhmSI5HOXiUT 1gydhvPCyrSQqoKVQwfjM9KFUi eNAfW4VdVBHqRQ2anpqkQCO9QA wjHEBeDHK4CxBaARNgm0Aaerj2 TpJgpOq4m4drMFBvUHKgqGmdz7 awOGG7SKFqqSWlV0ajvY1bEBSf SJ5spnfoo2pcSLphEFcdYVJmtN R7atT0TQKxjAFiS4CnbG7zLZKi SGHfxzIpwXgqxZ5zFpwszbOqEA OjVEONFR7WTJ2dHEEQRvKIZZQE PUEWJ4jYMQtzGrEzSVygZsGbLY AgXHBhciAtLSBGcmFnbWVudHMg k1ZnuRLpnVlnydYbQDPtr17nDc xwYXJ9 [facility] Work Phone: Pathology report gross observation Narrative b9jbbVUxNQWvmFNPUNI2XUUpRZ 0fmOcizOn0aHogOKUrskB0iNFn PJrwc6yjQQX8l1ljiqUSRcrmGR XmRW2sNUzzDQKkUM3yUyOcJTRp ZmYxXHBhcGVydzEyMjQwXHBhcG VvrTQ1JGXvAC8uazjlUEgdHEix XILhpiD0MQHknTDmJ2ShSJLkCJ 9urvunJJJ0FSSDRwgdPm9bwPJp bCANCntcZjFcZmNoYXJzZXQwXG Nvg5sxyeLSRHfsVMLRSQj0OGw3 EHHjUWViqUPcy1Y4XJkrq8bvt9 AmICZrMZx9cQ9SAzesAUO7YKCD DcksYgbpqNztu8TcnDMvMGVlNB xcaWQgNTEwMDAgXFxkYiBPVlIg TaBbYLwvDMQxPnByLJl5KEsqVq YOVZB8ThWeQZQnEEd2IEzeDOvo aYAkZSGfVZDgXIDtSHtezuG9b3 boUNIsiLXvTMB5RViyy4xzWWsi HZH0XRToEjIjWEEzIA5NCyNvXX S9JdMmGaBlIeF4ZEn1PHUILuXd WbRdTKI0CVL8FAGqQUu2EWv6YO jCGzEmCGMjHrVpGaU0PMW6HMId EUdzblsbXOo9QCZiAOktzvQoGF rbTbcxGUmaU08dvPOzUKWOFfrl bGFpblxlcGljTmVzdERvYzEgDQ fxqIVgwTIzQV1ONMx0dfQjNMOv SDXaQdMxIeGsSEk9PFOdeG6iSe 8arMClrU3yWRehXeYqIOGoj6z3 eIH1gFZjnUJ5rBSxbGgoPO1oyI AlGC0aNNhej4VboCUeLO85vZTr vwTmgkSiMaRpPR8ftyNqt4i6nB GfLWSsUGCzNPFqCEygME45kqWf m2HynJTlAQAvj7N1ZEIov0I6XK RmAV6qhHAwEPacwKbzg3IcKX7h QzOdBLLujcjrpAPtG5xzYNymfD zjUfD1doLxGqVdkJYrWwKxqKSp MuOcM87hHMReCZFerVJifF4huo AnbhLrzIGsgYC8HPVqpO0ttT42 jgTxckCtslYoT1Num9M9eNRyCV UtttKXHuGSGunyIVUqFSqil0Io MFxlcGljWHNhMzAgDQogDQpcZX LgV13lu5IIc7Sqc5catUgrb8Su nTEzQH78IHMwxIFeEKR8PL8etA xwYXIgDQpccGFyZCANClxwbGFp biANCn0= [facility] Work Phone: Pathology report relevant history Narrative a9pqsMXmXZNegHBsRZtpWdyoqi VkHJLziZLiB5WyemmsKUehBD7b LW4wrLaptWQcsGBjDZJoAvJfx5 odj607zWEij0duPHCHbjkkmUw7 fKxmU24nv4N4AklfM83rySYaDI R4PPNhORSwfEJxJCYcWBN9PJOx eOWwQ5waSVFmRC9ovkzbQQjsMD amBMEzzXB5HNGieMZuT6PnMETr TTjaKYClxpv3PiAcDg0hiFXzzN cyMFxwYXJkXHBsYWluXGZzMjAg LOthF09la0ihPTRcGPBpEfIKx0 eobdBtND1rLOBxe6UbTUFubB9y UPlqWPGxLKDeFGDborTOyEZ3a0 A0HL3bVHZrnJ0nBTJjgGgpboDo Hhz2GrBfBS8rmVUfCRQzeomiBE J9 [facility] Work Phone: [facility] Work Phone: [phone] Colonoscopy studyon 02-03-20 24 Table formatting fro [...] of bowel preparation was evaluated using the [place] Bowel Preparation Scale with scores of: right [...] SURGICAL PATHOLOGY EXAM Jluis Silveira RN 02/03/2024 1242 Procedure Location [address] [address] Referring Provider Hugo Redding DO Procedure Provider Hugo Redding DO [facility] Work Phone: [facility] Work Phone: Radiology Study observation (narrative) [facility] Work Phone: Thyrotropinon 09-30-2023 TSH Qn 2.08 m[IU]/L Normal 0.44-3.98 [facility] Comment on above: Order Comment: TSH t esting is performed using different testing methodology at [facility] than at other [facility]. Direct result comparisons should only be made within the same method. Performed By: #### 3 016-3 #### MCKEE FAIZA ([id number]) [facility] ([facility]) [address] [place] [address] UA DIP, URINE (POC)on 2023 BILIRUBIN UA (POCT) Negative Negative [facility] CLARITY UA (POCT) Clear [facility] COLOR UA (POCT) Yellow [facility] GLUCOSE UA (POCT) Negative Negative mg/dL [facility] Hemoglobin Ql (U) Negative Negative [facility] KETONE UA (POCT) Negative Negative mg/dL [facility] LEUKOCYTES UA (POCT) Negative Negative [facility] NITRITE UA (POCT) Negative Negative [facility] PH UA (POCT) 6.5 4.5 - 8.0 [facility] Protein Ql (U) Negative Negative mg/dL [facility] SPECIFIC GRAVITY UA (POCT) 1.015 1.005 - 1.030 [facility] UROBILINOGEN UA (POCT) 0.2 E.U./dL Deneen l E.U./dL [facility] Basophil percentageOrdered B y: Slade Leonardjesus on 08-07-2023 Sodium [Moles/Vol] 141 mmol/L 136-145 [facility] Basic metabolic 2000 panelon 07-28-2023 Anion gap [Moles/Vol] 12 mmol/L Normal 9-18 [facility] Comment on above: Order Comment: Speci men Type: SWAB OF INTERNAL NOSE Ordering Facility: [facility] Address: [address] [place] [address] Performed By: #### S APCR #### [facility] CLIA [id number] [address] [place] [address] [place] Calcium [Mass/Vol] 9.3 mg/dL Normal 8.5-10.2 [facility] Comment on above: Order Comment: Speci men Type: SWAB OF INTERNAL NOSE Ordering Facility: [facility] Address: [address] [place] [address] Performed By: #### S APCR #### [facility] CLIA [id number] [address] [place] [address] [place] Chloride [Moles/Vol] 106 mmol/L High 97-105 [facility] Comment on above: Order Comment: Speci men Type: SWAB OF INTERNAL NOSE Ordering Facility: [facility] Address: [address] [place] [address] Performed By: #### S APCR #### [facility] CLIA [id number] [address] [place] [id number] [place] CO2 [Moles/Vol] 21 mmol/L Low 22-30 [facility] Comment on above: Order Comment: Speci men Type: SWAB OF INTERNAL NOSE Ordering Facility: [facility] Address: [address] [place] [address] Performed By: #### S APCR #### [facility] CLIA [id number] [address] [place] [address] [place] Creatinine [Mass/Vol] 0.55 mg/dL Low 0.58-0.96 [facility] Comment on above: Order Comment: Speci men Type: SWAB OF INTERNAL NOSE Ordering Facility: [facility] Address: [address] [place] [address] Performed By: #### S APCR #### [facility] CLIA [id number] [address] [place] [address] [place] Creatinine and Glomerular filtration rate.predicted panel (S/P/Bld) 106 mL/min/1.73m??? Normal >=60 [facility] Comment on above: Order Comment: Speci men Type: SWAB OF INTERNAL NOSE Ordering Facility: [facility] Address: [address] [place] [address] Result Comment: Tiffany mated Glomerular Filtration Rate [...] GFR. Performed By: #### S APCR #### [facility] CLIA [id number] [address] [place] [address] [place] Glucose [Mass/Vol] 133 mg/dL High 74-99 [facility] Comment on above: Order Comment: Speci men Type: SWAB OF INTERNAL NOSE Ordering Facility: [facility] Address: [address] [place] [address] Result Comment: The [place] [employer] (ADA) provides guidance for cutoff [...] Standards of Medical Care in Diabetes 2016, [place] [employer]. Diabetes Care. 2016.39(Suppl 1). Performed By: #### S APCR #### [facility] CLIA [id number] [address] [place] [address] [place] Potassium [Moles/Vol] 4.8 mmol/L Normal 3.7-5.1 [facility] Comment on above: Order Comment: Speci men Type: SWAB OF INTERNAL NOSE Ordering Facility: [facility] Address: [address] [place] [address] Performed By: #### S APCR #### [facility] CLIA [id number] [address] [place] [address] [place] Sodium [Moles/Vol] 139 mmol/L Normal 136-144 [facility] Comment on above: Order Comment: Speci men Type: SWAB OF INTERNAL NOSE Ordering Facility: [facility] Address: [address] [place] [address] Performed By: #### S APCR #### [facility] CLIA [id number] [address] [place] [address] [place] Urea nitrogen [Mass/Vol] 12 mg/dL Normal 7-21 [facility] Comment on above: Order Comment: Speci men Type: SWAB OF INTERNAL NOSE Ordering Facility: [facility] Address: [address] [place] [address] Performed By: #### S APCR #### [facility] CLIA [id number] [id number] [facility] CASE MANAGEMon 07-28-2023 CASE MANAGEM HNO ID: [id number] Author: MALISSA LYNN RN Service: ? Author [...] 28, 2023 TIME: 1:16 PM CONTACT #: [phone] [facility] 07-28-2023 [facility] HNO ID: [id number] Author: MARIUSZ STREET JR, MD Service: Hospital [...] (appointment requested) When: In: Agustina Stacy MD [phone] [address] [facility] [address] PCP Requested Referral Follow-Up Appointment 2-4 weeks (appointment requested) With: Urology When: In: Additional Provider to Provider Information: This is a 57 year old female, with PMH of Multiple Sclerosis, Urinary Frequency, Neuropathy and SOCORRO/Depression, who presented to the [place] ED on 07/26/23 with a severe headache. [...] and po Fluconazole prior to transfer to [facility] for Hyponatremia and [place]. The Desmopressin [...] Problems as of 07/28/2023 Noted - Resolved [facility] Hemiparesis, left (HCC) 07/26/2023 - Present Yes Hypophosphatemia 07/27/2023 - Present Yes Internuclear opht (more content not included)... Normal [facility] Renal function 2000 panelon 07-27-2023 Albumin [Mass/Vol] 4.2 g/dL Normal 3.9-4.9 [facility] Comment on above: Order Comment: Speci men Type: SWAB OF INTERNAL NOSE Ordering Facility: [facility] Address: [address] [place] [address] Performed By: #### S APCR #### [facility] CLIA [id number] [address] [place] [address] [place] [address] [place] Anion gap [Moles/Vol] 10 mmol/L Normal 9-18 [facility] Comment on above: Order Comment: Speci men Type: SWAB OF INTERNAL NOSE Ordering Facility: [facility] Address: [address] [place] [address] Performed By: #### S APCR #### [facility] CLIA [id number] [address] [place] [address] [place] Calcium [Mass/Vol] 8.6 mg/dL Normal 8.5-10.2 [facility] Comment on above: Order Comment: Speci men Type: SWAB OF INTERNAL NOSE Ordering Facility: [facility] Address: [address] [place] [address] Performed By: #### S APCR #### [facility] CLIA [id number] [address] [place] [address] [place] Chloride [Moles/Vol] 106 mmol/L High 97-105 [facility] Comment on above: Order Comment: Speci men Type: SWAB OF INTERNAL NOSE Ordering Facility: [facility] Address: [address] [place] [address] Performed By: #### S APCR #### [facility] CLIA [id number] [address] [place] [address] [place] CO2 [Moles/Vol] 21 mmol/L Low 22-30 [facility] Comment on above: Order Comment: Speci men Type: SWAB OF INTERNAL NOSE Ordering Facility: [facility] Address: [address] [place] [address] Performed By: #### S APCR #### [facility] CLIA [id number] [address] [place] [address] [place] Creatinine [Mass/Vol] 0.66 mg/dL Normal 0.58-0.96 [facility] Comment on above: Order Comment: Speci men Type: SWAB OF INTERNAL NOSE Ordering Facility: [facility] Address: [address] [place] [address] Performed By: #### S APCR #### [facility] CLIA [id number] [address] [place] [address] [place] Creatinine and Glomerular filtration rate.predicted panel (S/P/Bld) 101 mL/min/1.73m??? Normal >=60 [facility] Comment on above: Order Comment: Speci men Type: SWAB OF INTERNAL NOSE Ordering Facility: [facility] Address: [address] [place] [address] Result Comment: Tiffany mated Glomerular Filtration Rate [...] GFR. Performed By: #### S APCR #### [facility] CLIA [id number] [address] [place] [address] [place] Glucose [Mass/Vol] 102 mg/dL High 74-99 [facility] Comment on above: Order Comment: Speci tammy Type: SWAB OF INTERNAL NOSE Ordering Facility: [facility] Address: [address] [place] [address] Result Comment: The [place] Diabetes Association (ADA) provides guidance for cutoff [...] Standards of Medical Care in Diabetes 2016, [place] [employer]. Diabetes Care. 2016.39(Suppl 1). Performed By: #### S APCR #### [facility] CLIA [id number] [address] [place] [address] [place] Phosphate [Mass/Vol] 2.6 mg/dL Low 2.7-4.8 [facility] Comment on above: Order Comment: Speci men Type: SWAB OF INTERNAL NOSE Ordering Facility: [facility] Address: [address] [place] [address] Performed By: #### S APCR #### [facility] CLIA [id number] [address] [place] [address] [place] Potassium [Moles/Vol] 4.1 mmol/L Normal 3.7-5.1 [facility] Comment on above: Order Comment: Speci men Type: SWAB OF INTERNAL NOSE Ordering Facility: [facility] Address: [address] [place] [address] Performed By: #### S APCR #### [facility] CLIA [id number] [address] [place] [address] [place] Sodium [Moles/Vol] 137 mmol/L Normal 136-144 [facility] Comment on above: Order Comment: Speci men Type: SWAB OF INTERNAL NOSE Ordering Facility: [facility] Address: [address] [place] [address] Performed By: #### S APCR #### [facility] CLIA [id number] [address] [place] [address] [place] Urea nitrogen [Mass/Vol] 11 mg/dL Normal 7-21 [facility] Comment on above: Order Comment: Speci men Type: SWAB OF INTERNAL NOSE Ordering Facility: [facility] Address: [address] [place] [address] Performed By: #### S APCR #### [facility] CLIA [id number] [address] [place] [address] [place] Sodium SerPl-sCncon 07-27-19 24 Sodium [Moles/Vol] 138 mmol/L Normal 136-144 [facility] Comment on above: Order Comment: Speci men Type: BLOOD SPECIMEN Ordering Facility: [facility] Address: [address] [place] [address] Performed By: #### 2 951-2 #### [facility] CLIA [id number] [address] [place] Sodium [Moles/Vol] 136 mmol/L Normal 136-144 [facility] Comment on above: Order Comment: Speci men Type: BLOOD SPECIMEN Ordering Facility: [facility] Address: [facility] [place] [address] Performed By: #### 2 951-2 #### [facility] CLIA [id number] [address] [place] [id number] [place] ALLIED HEALTHon 07-26-2023 ALLIED HEALTH HNO ID: [id number] Author: NACHO SILVESTRE RT(R) Service: ? Author Type: Electrician Master Type: Allied Health Filed: 07/26/2023 08:01 Note [...] PATIENT PRESENTS WITH AN IMPLANTABLE OR ATTACHED GUNITE MIXER: No ALLERGIES: Reviewed and unchanged CONTRAST ALLERGY: [...] CTA Brain , and CTA Neck SIGNATURE: RT Cici(R) PATIENT NAME: Socorro Grace DATE: July 26, 2023 TIME: 8:01 AM Normal [facility] Bacteria Ur Culton 4 Bacteria identified Cx Nom (U) CULTURE, URINE: No growth (<1,000 CFU/ml) Normal [facility] Comment on above: Performed By: #### S APCR #### [facility] CLIA [id number] [address] [place] [address] [place] [address] [place] Bacteria identified Cx Nom (U) CULTURE, URINE: No growth (<1,000 CFU/ml) Normal [facility] Comment on above: Performed By: #### 3 5678-2 #### [facility] CLIA [id number] [address] [place] [address] [place] Basic metabolic 2000 panelon 07-26-2023 Anion gap [Moles/Vol] 11 mmol/L Normal 9-18 [facility] Comment on above: Order Comment: Speci men Type: BLOOD SPECIMEN Ordering Facility: [facility] Address: [address] [place] [address] Performed By: #### 3 3959-8, 3084-1, 93251-3, 1987-09 #### [facility] CLIA [id number] [address] [place] [address] [place] Calcium [Mass/Vol] 8.3 mg/dL Low 8.5-10.2 [facility] Comment on above: Order Comment: Speci men Type: BLOOD SPECIMEN Ordering Facility: [facility] Address: [address] [place] [address] Performed By: #### 3 3959-8, 3084-1, , 1987-09 #### [facility] CLIA [id number] [address] [place] [address] [place] Chloride [Moles/Vol] 99 mmol/L Normal 97-105 [facility] Comment on above: Order Comment: Abdirahman munoz Type: BLOOD SPECIMEN Ordering Facility: [facility] Address: [address] [place] [address] Performed By: #### 3 3959-8, 308-1, , 1987-09 #### [facility] CLIA [id number] [address] [place] [address] [place] CO2 [Moles/Vol] 20 mmol/L Low 22-30 [facility] Comment on above: Order Comment: Abdirahman munoz Type: BLOOD SPECIMEN Ordering Facility: [facility] Address: [address] [place] [address] Performed By: #### 3 3959-8, 3081, , 1987-09 #### [facility] CLIA [id number] [address] [place] [address] [place] [facility] Creatinine [Mass/Vol] 0.54 mg/dL Low 0.58-0.96 [facility] Comment on above: Order Comment: Abdirahman munoz Type: BLOOD SPECIMEN Ordering Facility: [facility] Address: [address] [place] [address] Performed By: #### 3 3959-8, 3081, , 1987-09 #### [facility] CLIA [id number] [address] [facility] Creatinine and Glomerular filtration rate.predicted panel (S/P/Bld) 106 mL/min/1.73m??? Normal >=60 [facility] Comment on above: Order Comment: Abdirahman munoz Type: BLOOD SPECIMEN Ordering Facility: [facility] Address: [address] [place] [address] Result Comment: Tiffany mated Glomerular Filtration Rate [...] actual GFR. Performed By: #### 3 3959-8, 3084-1, , 1987-09 #### [facility] CLIA [id number] [address] [place] [address] [place] Glucose [Mass/Vol] 108 mg/dL High 74-99 [facility] Comment on above: Order Comment: Abdirahman munoz Type: BLOOD SPECIMEN Ordering Facility: [facility] Address: [address] [place] [address] Result Comment: The [place] Diabetes Association (ADA) provides guidance for cutoff [...] Standards of Medical Care in Diabetes 2016, [place] [employer]. Diabetes Care. 2016.39(Suppl 1). Performed By: #### 3 3959-8, 3084-, 1987-09 #### [facility] CLIA [id number] [address] [place] [address] [place] Potassium [Moles/Vol] Normal [facility] Comment on above: Order Comment: Abdirahman munoz Type: BLOOD SPECIMEN Ordering Facility: [facility] Address: [address] [place] [address] Result Comment: Unab le to assay due to interference from hemolysis. Suggest reorder as clinically indicated. Performed By: #### 3 3959-8, 3084-1, , 1987-09 #### [facility] CLIA [id number] [address] [place] [address] [place] Sodium [Moles/Vol] 130 mmol/L Low 136-144 [facility] Comment on above: Order Comment: Abdirahman munoz Type: BLOOD SPECIMEN Ordering Facility: [facility] Address: [address] [place] [address] Performed By: #### 3 3959-8, 3083-1, , 1987-09 #### [facility] CLIA [id number] [address] [place] [address] [place] Urea nitrogen [Mass/Vol] 7 mg/dL Normal 7-21 [facility] Comment on above: Order Comment: Speci men Type: BLOOD SPECIMEN Ordering Facility: [facility] Address: [address] [place] [address] Performed By: #### 3 3959-8, 1, , 1987-09 #### [facility] CLIA [id number] [address] [place] [address] [place] Anion gap [Moles/Vol] 14 mmol/L Normal 9-18 [facility] Comment on above: Order Comment: Speci men Type: BLOOD SPECIMEN Ordering Facility: [facility] Address: [address] [place] [address] Performed By: #### 2 4321-2 #### [facility] [place] [facility] CLIA [id number] [address] [place] [address] [place] Calcium [Mass/Vol] 8.7 mg/dL Normal 8.5-10.2 [facility] Comment on above: Order Comment: Speci men Type: BLOOD SPECIMEN Ordering Facility: [facility] Address: [address] [place] [address] Performed By: #### 2 4321-2 #### [facility] [place] [facility] CLIA [id number] [address] [place] [address] [place] Chloride [Moles/Vol] 85 mmol/L Low 97-105 [facility] Comment on above: Order Comment: Speci men Type: BLOOD SPECIMEN Ordering Facility: [facility] Address: [address] [place] [address] Performed By: #### 2 4321-2 #### [facility] [place] [facility] CLIA [id number] [address] [place] [address] [place] CO2 [Moles/Vol] 21 mmol/L Low 22-30 [facility] Comment on above: Order Comment: Abdirahman munoz Type: BLOOD SPECIMEN Ordering Facility: [facility] Address: [address] [place] [address] Performed By: #### 2 4321-2 #### [facility] [place] [facility] CLIA [id number] [address] [place] [address] [place] Creatinine [Mass/Vol] 0.47 mg/dL Low 0.58-0.96 [facility] Comment on above: Order Comment: Speci men Type: BLOOD SPECIMEN Ordering Facility: [facility] Address: [address] [place] [address] Performed By: #### 2 4321-2 #### [facility] CLIA [id number] [address] [place] [address] [place] Creatinine and Glomerular filtration rate.predicted panel (S/P/Bld) 110 mL/min/1.73m??? Normal >=60 [facility] Comment on above: Order Comment: Abdirahman munoz Type: BLOOD SPECIMEN Ordering Facility: [facility] Address: [address] [place] [address] Result Comment: Tiffany mated Glomerular Filtration Rate [...] GFR. Performed By: #### 2 4321-2 #### [facility] [place] [facility] CLIA [id number] [address] [place] [address] [place] Glucose [Mass/Vol] 101 mg/dL High 74-99 [facility] Comment on above: Order Comment: Abdirahman munoz Type: BLOOD SPECIMEN Ordering Facility: [facility] Address: [address] [place] [address] Result Comment: The [place] Diabetes Association (ADA) provides guidance for cutoff [...] Standards of Medical Care in Diabetes 2016, [place] [employer]. Diabetes Care. 2016.39(Suppl 1). Performed By: #### 2 4321-2 #### [facility] [place] [facility] CLIA [id number] [address] [place] [address] [place] Potassium [Moles/Vol] 3.9 mmol/L Normal 3.7-5.1 [facility] Comment on above: Order Comment: Abdirahman munoz Type: BLOOD SPECIMEN Ordering Facility: [facility] Address: [address] [place] [address] Performed By: #### 2 4321-2 #### [facility] [place] [facility] CLIA [id number] [address] [place] [address] [place] Sodium [Moles/Vol] 120 mmol/L Low 136-144 [facility] Comment on above: Order Comment: Abdirahman munoz Type: BLOOD SPECIMEN Ordering Facility: [facility] Address: [address] [place] [address] Performed By: #### 2 4321-2 #### [facility] [place] [facility] CLIA [id number] [address] [place] [address] [place] Urea nitrogen [Mass/Vol] 4 mg/dL Low 7-21 [facility] Comment on above: Order Comment: Abdirahman munoz Type: BLOOD SPECIMEN Ordering Facility: [facility] Address: [address] [place] [address] Performed By: #### 2 4321-2 #### [facility] [place] [facility] CLIA [id number] [address] [place] [address] [place] Anion gap [Moles/Vol] 17 mmol/L Normal 9-18 [facility] Comment on above: Order Comment: Speci men Type: BLOOD SPECIMEN Ordering Facility: [facility] Address: [address] [id number] Performed By: #### 2 4321-2 #### [facility] [place] [facility] CLIA [id number] [address] [place] [address] [place] Calcium [Mass/Vol] 9.1 mg/dL Normal 8.5-10.2 [facility] Comment on above: Order Comment: Speci men Type: BLOOD SPECIMEN Ordering Facility: [facility] Address: [address] [place] [address] Performed By: #### 2 4321-2 #### [facility] [place] [facility] CLIA [id number] [address] [place] [address] [place] Chloride [Moles/Vol] 87 mmol/L Low 97-105 [facility] Comment on above: Order Comment: Speci men Type: BLOOD SPECIMEN Ordering Facility: [facility] Address: [address] [place] [address] Performed By: #### 2 4321-2 #### [facility] [place] [facility] CLIA [id number] [address] [place] [address] [place] CO2 [Moles/Vol] 19 mmol/L Low 22-30 [facility] Comment on above: Order Comment: Speci men Type: BLOOD SPECIMEN Ordering Facility: [facility] Address: [address] [place], [place] [address] Performed By: #### 2 4321-2 #### [facility] [place] [facility] CLIA [id number] [address] [place] [address] [place] Creatinine [Mass/Vol] 0.43 mg/dL Low 0.58-0.96 [facility] Comment on above: Order Comment: Speci men Type: BLOOD SPECIMEN Ordering Facility: [facility] Address: [facility] [place] [address] Performed By: #### 2 4321-2 #### [facility] [place] [facility] CLIA [id number] [address] [place] [address] [place] Creatinine and Glomerular filtration rate.predicted panel (S/P/Bld) 112 mL/min/1.73m??? Normal >=60 [facility] Comment on above: Order Comment: Abdirahman munoz Type: BLOOD SPECIMEN Ordering Facility: [facility] Address: [address] [place] [address] Result Comment: Tiffany mated Glomerular Filtration Rate [...] GFR. Performed By: #### 2 4321-2 #### [facility] CLIA [id number] [address] [place] [address] [place] Glucose [Mass/Vol] 110 mg/dL High 74-99 [facility] Comment on above: Order Comment: Abdirahman munoz Type: BLOOD SPECIMEN Ordering Facility: [facility] Address: [address] [place] [address] Result Comment: The [place] Diabetes Association (ADA) provides guidance for cutoff [...] Standards of Medical Care in Diabetes 2016, [place] [employer]. Diabetes Care. 2016.39(Suppl 1). Performed By: #### 2 4321-2 #### [facility] CLIA [id number] [address] [place] [address] [place] Potassium [Moles/Vol] 4.1 mmol/L Normal 3.7-5.1 [facility] Comment on above: Order Comment: Speci men Type: BLOOD SPECIMEN Ordering Facility: [facility] Address: [address] [place] [address] Performed By: #### 2 4321-2 #### [facility] [place] [facility] CLIA [id number] [address] [place] [id number] [place] Sodium [Moles/Vol] 123 mmol/L Low 136-144 [facility] Comment on above: Order Comment: Speci men Type: BLOOD SPECIMEN Ordering Facility: [facility] Address: [address] [place] [address] Performed By: #### 2 4321-2 #### [facility] [place] [facility] CLIA [id number] [address] [place] [address] [place] Urea nitrogen [Mass/Vol] 4 mg/dL Low 7-21 [facility] Comment on above: Order Comment: Speci men Type: BLOOD SPECIMEN Ordering Facility: [facility] Address: [address] [place] [address] Performed By: #### 2 4321-2 #### [facility] [place] [facility] CLIA [id number] [address] [place] CBC W Auto Differential pane l (Bld)on 07-26-2023 Basophils (Bld) [#/Vol] 10*3/uL Normal <0.11 [facility] Comment on above: Order Comment: Speci men Type: BLOOD SPECIMEN Ordering Facility: [facility] Address: [address] [place] [address] Performed By: #### 5 7021-8 #### [facility] [place] [facility] CLIA [id number] [address] [place] Basophils/100 WBC (Bld) 0.2 % Normal [facility] Comment on above: Order Comment: Speci men Type: BLOOD SPECIMEN Ordering Facility: [facility] Address: [address] [place] [address] Performed By: #### 5 7021-8 #### [facility] [place] [facility] CLIA [id number] [address] [place] [address] [place] Differential cell count method Nom (Bld) Auto Normal [facility] Comment on above: Order Comment: Speci men Type: BLOOD SPECIMEN Ordering Facility: [facility] Address: [address] [place] [address] Performed By: #### 5 7021-8 #### [facility] [place] [facility] CLIA [id number] [address] [place] [address] [place] Eosinophils (Bld) [#/Vol] 0.10 10*3/uL Normal <0.46 [facility] Comment on above: Order Comment: Speci men Type: BLOOD SPECIMEN Ordering Facility: [facility] Address: [address] [place] [address] Performed By: #### 5 7021-8 #### [facility] [place] [facility] CLIA [id number] [address] [place] [address] [facility] [place] Eosinophils/100 WBC (Bld) 1.2 % Normal [facility] Comment on above: Order Comment: Speci men Type: BLOOD SPECIMEN Ordering Facility: [facility] Address: [address] [place] [address] Performed By: #### 5 7021-8 #### [facility] [place] [facility] CLIA [id number] [address] [place] [address] [place] Erythrocyte distribution width (RBC) [Ratio] 13.2 % Normal 11.5-15.0 [facility] Comment on above: Order Comment: Speci men Type: BLOOD SPECIMEN Ordering Facility: [facility] Address: [address] [place] [address] Performed By: #### 5 7021-8 #### [facility] [place] [facility] CLIA [id number] [address] [place] [address] [place] Hematocrit (Bld) [Volume fraction] 41.2 % Normal 36.0-46.0 [facility] Comment on above: Order Comment: Speci men Type: BLOOD SPECIMEN Ordering Facility: [facility] Address: [address] [place] [address] Performed By: #### 5 7021-8 #### [facility] [place] [facility] CLIA [id number] [address] [place] [address] [place] Hemoglobin (Bld) [Mass/Vol] 14.4 g/dL Normal 11.5-15.5 [facility] Comment on above: Order Comment: Speci men Type: BLOOD SPECIMEN Ordering Facility: [facility] Address: [address] [place] [address] Performed By: #### 5 7021-8 #### [facility] [place] [facility] CLIA [id number] [address] [place] [address] [place] Immature granulocytes (Bld) [#/Vol] 0.03 10*3/uL Normal <0.10 [facility] Comment on above: Order Comment: Speci men Type: BLOOD SPECIMEN Ordering Facility: [facility] Address: [address] [place] [address] Performed By: #### 5 7021-8 #### [facility] CLIA [id number] [address] [place] Immature granulocytes/100 WBC (Bld) 0.4 % Normal [facility] Comment on above: Order Comment: Speci men Type: BLOOD SPECIMEN Ordering Facility: [facility] Address: [address] [place] [address] Performed By: #### 5 7021-8 #### [facility] CLIA [id number] [address] [place] [address] [place] Lymphocytes (Bld) [#/Vol] 0.58 10*3/uL Low 1.00-4.00 [facility] Comment on above: Order Comment: Speci men Type: BLOOD SPECIMEN Ordering Facility: [facility] Address: [address] [place] [address] Performed By: #### 5 7021-8 #### [facility] CLIA [id number] [address] [place] [address] [facility] [place] Lymphocytes/100 WBC (Bld) 7.0 % Normal [facility] Comment on above: Order Comment: Speci men Type: BLOOD SPECIMEN Ordering Facility: [facility] Address: [address] [place] [address] Performed By: #### 5 7021-8 #### [facility] CLIA [id number] [address] [place], [place] [address] [place] [address] STATES [facility] MCH (RBC) [Entitic mass] 29.4 pg Normal 26.0-34.0 [facility] Comment on above: Order Comment: Speci men Type: BLOOD SPECIMEN Ordering Facility: [facility] Address: [address] [place] [address] Performed By: #### 5 7021-8 #### [facility] CLIA [id number] [address] [place], [place] [address] [place] [address] [place] MCHC (RBC) [Mass/Vol] 35.0 g/dL Normal 30.5-36.0 [facility] Comment on above: Order Comment: Speci men Type: BLOOD SPECIMEN Ordering Facility: [facility] Address: [address] [place] [address] Performed By: #### 5 7021-8 #### [facility] CLIA [id number] [address] [place] [address] [place] MCV (RBC) [Entitic vol] 84.3 fL Normal 80.0-100.0 [facility] Comment on above: Order Comment: Speci men Type: BLOOD SPECIMEN Ordering Facility: [facility] Address: [address] [place] [address] Performed By: #### 5 7021-8 #### [facility] CLIA [id number] [address] [place] [address] [place] Monocytes (Bld) [#/Vol] 0.77 10*3/uL Normal <0.87 [facility] Comment on above: Order Comment: Speci men Type: BLOOD SPECIMEN Ordering Facility: [facility] Address: [address] [place] [address] Performed By: #### 5 7021-8 #### [facility] CLIA [id number] [address] [place] Monocytes/100 WBC (Bld) 9.4 % Normal [facility] Comment on above: Order Comment: Speci men Type: BLOOD SPECIMEN Ordering Facility: [facility] Address: [facility] [place] [id number] Performed By: #### 5 7021-8 #### [facility] CLIA [id number] [address] [place] [address] [place] Neutrophils (Bld) [#/Vol] 6.73 10*3/uL Normal 1.45-7.50 [facility] Comment on above: Order Comment: Speci men Type: BLOOD SPECIMEN Ordering Facility: [facility] Address: [address] [place] [address] Performed By: #### 5 7021-8 #### [facility] CLIA [id number] [address] [place] [address] [place] Neutrophils/100 WBC (Bld) 81.8 % Normal [facility] Comment on above: Order Comment: Speci men Type: BLOOD SPECIMEN Ordering Facility: [facility] Address: [address] [place] [address] Performed By: #### 5 7021-8 #### [facility] CLIA [id number] [address] [place] [address] [place] Nucleated RBC (Bld) [#/Vol] Normal [facility] Comment on above: Order Comment: Speci men Type: BLOOD SPECIMEN Ordering Facility: [facility] Address: [address] [place] [address] Performed By: #### 5 7021-8 #### [facility] CLIA [id number] [address] [place] [address] [place] Nucleated RBC/100 WBC (Bld) [Ratio] Normal [facility] Comment on above: Order Comment: Speci men Type: BLOOD SPECIMEN Ordering Facility: [facility] Address: [address] [place] [address] Performed By: #### 5 7021-8 #### [facility] CLIA [id number] [address] [place] [address] [place] Platelet mean volume (Bld) [Entitic vol] 9.3 fL Normal 9.0-12.7 [facility] Comment on above: Order Comment: Speci men Type: BLOOD SPECIMEN Ordering Facility: [facility] Address: [address] [place] [address] Performed By: #### 5 7021-8 #### [facility] CLIA [id number] [address] [place] [address] [place] Platelets (Bld) [#/Vol] 215 10*3/uL Normal 150-400 [facility] Comment on above: Order Comment: Speci men Type: BLOOD SPECIMEN Ordering Facility: [facility] Address: [address] [place] [address] Performed By: #### 5 7021-8 #### [facility] CLIA [id number] [address] [place] [address] [place] RBC (Bld) [#/Vol] 4.89 10*6/uL Normal 3.90-5.20 [facility] Comment on above: Order Comment: Speci men Type: BLOOD SPECIMEN Ordering Facility: [facility] Address: [address] [place] [address] Performed By: #### 5 7021-8 #### [facility] CLIA [id number] [address] [place] [address] [place] WBC (Bld) [#/Vol] 8.23 10*3/uL Normal 3.70-11.00 [facility] Comment on above: Order Comment: Speci men Type: BLOOD SPECIMEN Ordering Facility: [facility] Address: [address] [place] [address] Performed By: #### 5 7021-8 #### [facility] CLIA [id number] [address] [place] [address] [place] CRP SerPl-mCncon 07-26-2023 CRP [Mass/Vol] 4.8 mg/dL High <0.9 [facility] Comment on above: Order Comment: Speci men Type: BLOOD SPECIMEN Ordering Facility: [facility] Address: [facility] [place] [address] Performed By: #### 3 3959-8, 3084-1, 57038-2, 1987- #### [facility] CLIA [id number] [address] [place] [address] [address] [place] [address] BRAIN WO IVCONon 07-26-[address] BRAIN WO IVCON * * *Final Report* * * DATE OF EXAM: Jul 26 2023 7:58AM [facility] 0504 - CT BRAIN WO IVCON / [...] IV CT Dose-Length Product (DLP): 2243.53 (accession [id number]), 2243.53 (accession [id number]), 2243.53 Combined exam (accession [id number]) mGy*cm CT Dose Reduction Employed: Automated exposure control(AEC) and iterative recon (accession [id number]), Automated exposure control(AEC) and iterative recon (accession [id number]), No dose reduction techniques were required (accession [id number]); COMPARISON: 10/12/2015 brain MRI RESULT: BRAIN (non-contrast): [...] are seen and show patency, i.e. complete curyung of Guidry. The other major vertebrobasilar branches and the opthalmic arteries also show patency, at least in the well visualized portions. Left-sided dominance of the AICA/PICA. No visible sizable/large intracranial aneurysm. Punctate/1.5 mm infundibulum (subtle funnel-shaped minimal prominence) at the right-sided posterior communicating artery origin (reference 5:365). No acute dural venous sinus thrombosis is seen. Kraft Digester Operator (topogram) images: Non-diagnostic. IMPRESSION: Non-contrast CT brain shows no (more content not included)... Normal [facility] CTA HEAD W IVCONon 4 CTA HEAD W IVCON * * *Final Report* * * DATE OF EXAM: Jul 26 2023 7:59AM [facility] 0022 - CTA HEAD W IVCON / [...] IV CT Dose-Length Product (DLP): 2243.53 (accession [id number]), 2243.53 (accession [id number]), 2243.53 Combined exam (accession [id number]) mGy*cm CT Dose Reduction Employed: Automated exposure control(AEC) and iterative recon (accession [id number]), Automated exposure control(AEC) and iterative recon (accession [id number]), No dose reduction techniques were required (accession [id number]); COMPARISON: 10/12/2015 brain MRI RESULT: BRAIN (non-contrast): [...] are seen and show patency, i.e. complete curyung of Guidry. The other major vertebrobasilar branches and the opthalmic arteries also show patency, at least in the well visualized portions. Left-sided dominance of the AICA/PICA. No visible sizable/large intracranial aneurysm. Punctate/1.5 mm infundibulum (subtle funnel-shaped minimal prominence) at the right-sided posterior communicating artery origin (reference 5:365). No acute dural venous sinus thrombosis is seen. Kraft Digester Operator (topogram) images: Non-diagnostic. IMPRESSION: Non-contrast CT brain shows no e (more content not included)... Normal [facility] CTA NECK W IVCONon CTA NECK W IVCON * * *Final Report* * * DATE OF EXAM: Jul 26 2023 7:59AM [facility] 0024 - CTA NECK W IVCON / [...] IV CT Dose-Length Product (DLP): 2243.53 (accession [id number]), 2243.53 (accession [id number]), 2243.53 Combined exam (accession [id number]) mGy*cm CT Dose Reduction Employed: Automated exposure control(AEC) and iterative recon (accession [id number]), Automated exposure control(AEC) and iterative recon (accession [id number]), No dose reduction techniques were required (accession [id number]); COMPARISON: 10/12/2015 brain MRI RESULT: BRAIN (non-contrast): [...] are seen and show patency, i.e. complete curyung of Guidry. The other major vertebrobasilar branches and the opthalmic arteries also show patency, at least in the well visualized portions. Left-sided dominance of the AICA/PICA. No visible sizable/large intracranial aneurysm. Punctate/1.5 mm infundibulum (subtle funnel-shaped minimal prominence) at the right-sided posterior communicating artery origin (reference 5:365). No acute dural venous sinus thrombosis is seen. Kraft Digester Operator (topogram) images: Non-diagnostic. IMPRESSION: Non-contrast CT brain shows no e (more content not included)... Normal [facility] Chloride ?Tm Ur-sCncon 07-25 Chloride Unsp time (U) [Moles/Vol] <20 Normal 16-250 [facility] Comment on above: Order Comment: Speci men Type: URINE SPECIMEN Ordering Facility: [facility] Address: [address] [place] [address] Performed By: #### 3 5678-2, 78774-6 #### [facility] CLIA [id number] [address] [place] [address] [place] [address] [place] ECG COMPLETEon 07-26-2023 ECG COMPLETE Ventricular Rate : 8 1 BPM Atrial Rate : 81 BPM P-R Interval : 130 ms QRS Duration : 90 ms Q-T Interval : 426 ms QTC Calculation(Bazett) : 494 ms Calculated P [place] : -12 degrees Calculated R [place] : 69 degrees Calculated T [place] : 63 degrees NORMAL SINUS RHYTHM PROLONGED QT ABNORMAL ECG NO PREVIOUS ECGS AVAILABLE Confirmed by MD SPARROW VINAYAK ([id number]) on 07/27/2023 11:37:01 PM NAME : SOCORRO GRACE PID : [id number] : 1965 Gender : Female Race : ORD : [id number] Procedure Date : Jul 26 2023 07:14:50 Edit Date : Jul 27 2023 23:37:06 Diagnosis: NORMAL SINUS RHYTHM PROLONGED QT ABNORMAL ECG NO PREVIOUS ECGS AVAILABLE Confirmed by MD SPARROW VINAYAK ([id number]) on 07/27/2023 11:37:01 PM Test Reason : Dizziness Location : 150 : [place] ED Overread By : MD SPARROW VINAYAK Edited By : MD SPARROW VINAYAK Referred By : , Acquired by : TERAGENESIS [facility] ED NOTEon 07-26-2023 ED NOTE HNO ID: [id number] Author: KACIE FARFAN RN Service: ? Author Type: Registered Nurse Type: ED Notes Filed: 07/26/2023 09:51 Note Text: Accepting nurse at [facility] RN is currently in isolation room per area secretary and will call for report when able. Pt updated with room number. [facility] ED NOTE HNO ID: [id number] Author: KACIE FARFAN RN Service: ? Author Type: Registered Nurse Type: ED Notes Filed: 07/26/2023 09:47 Note Text: 2 North: 243 Nurse to Nurse: [phone] [facility] ED NOTE HNO ID: [id number] Author: DANIEL MONTALVO RN Service: Nursing Author Type: Registered Nurse Type: ED Notes Filed: 07/26/2023 09:18 Note Text: Called [facility] for admission. Advised they have no available beds. , primary nurse and patient notified. [facility] ED NOTE HNO ID: [id number] Author: KACIE FARFAN RN Service: ? Author Type: Registered Nurse Type: ED Notes Filed: 07/26/2023 08:56 Note Text: Pt assisted to BSC; hat placed for urine collection [facility] ED NOTE HNO ID: [id number] Author: SANGITA ROSENBERG RN Service: Emergency Medicine Author Type: Registered Nurse Type: ED Notes Filed: 07/26/2023 07:06 Note Text: Change of shift report given to Kacie Chen RN. Transfer of patient care given to Kacie Chen RN. -NaCl infusing at 125ml/hr -Needs EKG (RT on their way) -Needs CT scans (Needs marked ready) [facility] ED NOTE HNO ID: [id number] Author: SANGITA ROSENBERG RN Service: Emergency Medicine Author Type: Registered Nurse Type: ED Notes Filed: 07/26/2023 06:46 Note Text: Patient informed about the name of the medication(s), what the medication(s) is(are) for, and what to expect with/from med administration. Patient given opportunity to ask questions. Medication(s) include: Reglan, Benadryl, NaCl [facility] ED NOTE HNO ID: [id number] Author: SANGITA ROSENBERG RN Service: Emergency Medicine Author Type: Registered Nurse Type: ED Notes Filed: 07/26/2023 06:36 Note Text: Physician at bedside for assessment. Patient's spouse at bedside. Normal [facility] ED NOTE HNO ID: [id number] Author: SANGITA ROSENBERG RN Service: Emergency Medicine [...] light in reach, patient's spouse at bedside. [facility] ED PROV NOTEon 07-26-2023 ED PROV NOTE HNO ID: [id number] Author: DESTNIY ODOM MD Service: Emergency Medicine Author Type: [...] the etiology of the above. Patient requested [facility], and transfer team was contacted. 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 Buckley Osteopenia hip, spine. [...] nerves 2- (more content not included)... Normal [facility] FLUABV+SARS-CoV-2+RSV Pnl Re sp SHON+probeon 07-26-2023 FLUABV+SARS-CoV-2+RSV Pnl Resp SHON+probe COVID 19 RESULT: Not detected The method used is RT-PCR or an equivalent NAAT method. Reference Range(the expected result in uninfected individuals): Not detected INFLUENZA A PCR: Not detected INFLUENZA B PCR: Not detected RSV PCR: Not detected Normal [facility] Comment on above: Performed By: #### 3 5678-2 #### [facility] CLIA [id number] [address] [place] [address] [place] HIGH SENSITIVITY TROPONIN To n 07-26-2023 Troponin T.cardiac High sensitivity method [Mass/Vol] 8 ng/L Normal <12 [facility] Comment on above: Order Comment: Speci men Type: BLOOD SPECIMEN Ordering Facility: [facility] Address: [address] [place] [address] Result Comment: When assessing risk for acute [...] MACE. Performed By: #### H STNT #### [facility] CLIA [id number] [address] [place] [address] [place] HISTORY PHYSICALon HISTORY PHYSICAL HNO ID: [id number] Author: SANTIAGO BOOKER MD Service: Hospital Medicine Author Type: Physician Type: H&P Filed: 07/26/2023 18:00 Note Text: DEPARTMENT OF HOSPITAL MEDICINE HISTORY AND PHYSICAL EXAM SERVICE DATE: 07/26/2023 SERVICE TIME: 6:00 PM Hospital Medicine/Primary Attending: Santiago Booker MD NIGHT AND WEEKEND COVERAGE: [facility] C[facility]: Nights: [phone], please page [facility] Hospitalist Night coverage pager [phone]. Admission date: 07/26/2023 MEDICAL DECISION MAKING Reason [...] causing the headache. She is excepted at [place] and transferred to the medical floor and on arrival urine cultures obtained along with blood cultures and starting her on ceftriaxone. Studies are sent for [facility] and she is Placed on 1200 cc fluid restriction and IV fluids stopped until we see her urine sodium. Principal Problem: Hyponatremia Active Problems: Multiple sclerosis (HCC) Overview: Sx: memory, L side weakness and dysesthesias Internuclear ophthalmoplegia Stress incontinence Overview: 10/23 largely resolved, to do kegels and PRN oxybutinin (causes dry mouth). MS (multiple sclerosis) (HCC) Overview: Dr. Buckley Hemiparesis, left (HCC) Overview: Secondary from plaquing for multiple sclerosis [...] (more content not included)... Normal [facility] NURSING PROGon 07-26-2023 NURSING PROG HNO ID: [id number] Author: CECE ESPINAL, RN Service: ? Author Type: Registered Nurse Type: Nursing Progress Note Filed: 07/26/2023 12:28 Note Text: Transfer Note: PATIENT NAME: Socorro Grace Patient Location: [place] [id number] Room: [place] [address] Patient transferred into room/unit 243 in stable condition. Sr on tele, pt. C/o 8/10 headache. Actions taken: Pt. Oriented to room and call light, unit routine. Dr. Booker at the bedside. Will continue to monitor and check with patient. Patient belongings with patient Normal [facility] Osmolality Uron 07-26-2023 Osmolality (U) [Osmolality] 169 mosm/kg Normal 50-1200 [facility] Comment on above: Order Comment: Speci men Type: SWAB OF INTERNAL NOSE Ordering Facility: [facility] Address: [address] [place] [address] Performed By: #### S APCR #### [facility] CLIA [id number] [address] [place] [address] [place] [address] [place] Procalcitonin SerPl-mCncon 0 07-26-2023 Procalcitonin [Mass/Vol] 0.08 ng/mL Normal <0.09 [facility] Comment on above: Order Comment: Speci men Type: BLOOD SPECIMEN Ordering Facility: [facility] Address: [address] [place] [address] Result Comment: For a guided interpretation of test results, please visit the Change in Procalcitonin Calculator, [email or web address]. Performed By: #### 3 3959-8, 3084-1, 74604-4, 1987- #### [facility] CLIA [id number] [address] [place] STAPH AUREUS PCRon 4 S. aureus and MRSA panel SHON+probe (Nose) Normal Negative [facility] Comment on above: Order Comment: Speci men Type: SWAB OF INTERNAL NOSE Ordering Facility: [facility] Address: [address] [place] [address] Result Comment: Nega tive for Staphylococcus aureus by PCR. Negative for MRSA by PCR Performed By: #### S APCR #### [facility] CLIA [id number] [address] [place] [address] [place] Sodium ?Tm Ur-sCncon 024 Sodium Unsp time (U) [Moles/Vol] <20 Normal 14 [facility] Comment on above: Order Comment: Speci men Type: URINE SPECIMEN Ordering Facility: [facility] Address: [address] [place] [address] Performed By: #### 3 5678-2, 26411-2 #### [facility] CLIA [id number] [address] [place] [address] [place] Sodium Unsp time (U) [Moles/Vol] <20 Normal 14-216 [facility] Comment on above: Order Comment: Speci men Type: URINE SPECIMEN Ordering Facility: [facility] Address: [address] [place] [address] Performed By: #### 3 5678-2 #### [facility] CLIA [id number] [address] [place] [address] [place] Sodium SerPl-sCncon 07-26-19 24 Sodium [Moles/Vol] 134 mmol/L Low 136-144 [facility] Comment on above: Order Comment: Speci men Type: BLOOD SPECIMEN Ordering Facility: [facility] Address: [address] [place] [address] Performed By: #### 2 951-2 #### [facility] CLIA [id number] [address] [place] [address] [place] Urate SerPl-mCncon 4 Urate [Mass/Vol] 2.2 mg/dL Low 2.5-6.6 [facility] Comment on above: Order Comment: Speci men Type: BLOOD SPECIMEN Ordering Facility: [facility] Address: [address] [place] [address] Performed By: #### 3 3959-8, 3084-1, 52367-8, 1988- #### [facility] CLIA [id number] [address] [place] [address] [place] Urinalysis complete panel (U )on 07-26-2023 Bacteria LM.HPF (Urine sed) [#/Area] Few Abnormal None Seen [facility] Comment on above: Order Comment: Speci men Type: URINE SPECIMEN Ordering Facility: [facility] Address: [address] [place] [address] Performed By: #### 2 4356-8 #### [facility] CLIA [id number] [address] [place] [address] [place] Bilirubin Ql (U) Negative Normal Negative [facility] Comment on above: Order Comment: Speci men Type: URINE SPECIMEN Ordering Facility: [facility] Address: [address] [place] [address] Performed By: #### 2 4356-8 #### [facility] CLIA [id number] [address] [place] [address] [place] Clarity (Unsp spec) Clear Normal Clear [facility] Comment on above: Order Comment: Speci men Type: URINE SPECIMEN Ordering Facility: [facility] Address: [address] [place] [address] Performed By: #### 2 4356-8 #### [facility] CLIA [id number] [address] [place] [address] [place] Color (U) Straw Normal Yellow [facility] Comment on above: Order Comment: Speci men Type: URINE SPECIMEN Ordering Facility: [facility] Address: [address] [place] [address] Performed By: #### 2 4356-8 #### [facility] CLIA [id number] [address] [place] [address] [place] Epithelial cells LM.HPF (Urine sed) [#/Area] Few Normal [facility] Comment on above: Order Comment: Speci men Type: URINE SPECIMEN Ordering Facility: [facility] Address: [address] [place] [address] Performed By: #### 2 4356-8 #### [facility] CLIA [id number] [address] [place] [address] [place] Glucose Test strip (U) [Mass/Vol] Negative Normal Negative [facility] Comment on above: Order Comment: Speci men Type: URINE SPECIMEN Ordering Facility: [facility] Address: [address] [place] [address] Performed By: #### 2 4356-8 #### [facility] CLIA [id number] [address] [place] [address] [place] Hemoglobin Ql (U) Trace Abnormal Negative [facility] Comment on above: Order Comment: Speci men Type: URINE SPECIMEN Ordering Facility: [facility] Address: [address] [place] [address] Performed By: #### 2 4356-8 #### [facility] CLIA [id number] [address] [place] [address] [place] Ketones Ql (U) Negative Normal Negative [facility] Comment on above: Order Comment: Speci men Type: URINE SPECIMEN [facility] [facility] Address: [address] [place] [address] Performed By: #### 2 4356-8 #### [facility] CLIA [id number] [address] [place] [address] [facility] Leukocyte esterase Test strip Ql (U) 1+ Abnormal Negative [facility] Comment on above: Order Comment: Speci men Type: URINE SPECIMEN Ordering Facility: [facility] Address: [address] [place] [address] Performed By: #### 2 4356-8 #### [facility] CLIA [id number] [address] [place] [address] [place] Nitrite Ql (U) Negative Normal Negative [facility] Comment on above: Order Comment: Speci men Type: URINE SPECIMEN Ordering Facility: [facility] Address: [address] [place] [address] Performed By: #### 2 4356-8 #### [facility] CLIA [id number] [address] [place] [address] [place] pH (U) 7.0 [pH] Normal 5.0-8.0 [facility] Comment on above: Order Comment: Speci men Type: URINE SPECIMEN Ordering Facility: [facility] Address: [address] [place] [address] Performed By: #### 2 4356-8 #### [facility] CLIA [id number] [address] [place] [id number] [place] Protein (U) [Mass/Vol] Negative Normal Negative [facility] Comment on above: Order Comment: Speci men Type: URINE SPECIMEN Ordering Facility: [facility] Address: [address] [place] [address] Performed By: #### 2 4356-8 #### [facility] CLIA [id number] [address] [place] [address] [place] RBC LM.HPF (Urine sed) [#/Area] 0-3 /HPF Normal 0-3 /HPF [facility] Comment on above: Order Comment: Speci men Type: URINE SPECIMEN Ordering Facility: [facility] Address: [address] [place] [address] Performed By: #### 2 4356-8 #### [facility] CLIA [id number] [address] [place] [address] Specific gravity (U) [Rel density] 1.010 Normal 1.005-1.03 0 [facility] Comment on above: Order Comment: Speci men Type: URINE SPECIMEN Ordering Facility: [facility] Address: [address] [place] [address] Performed By: #### 2 4356-8 #### [facility] CLIA [id number] [address] [place] [address] Urobilinogen Ql (U) 0.2 EU/dL Normal 0.2-1.0 EU/dL [facility] Comment on above: Order Comment: Speci men Type: URINE SPECIMEN Ordering Facility: [facility] Address: [address] [place] [address] Performed By: #### 2 4356-8 #### [facility] CLIA [id number] [address] [place] [address] OF [place] WBC LM.HPF (Urine sed) [#/Area] 6-10 /HPF Abnormal 0-5 /HPF [facility] Comment on above: Order Comment: Speci men Type: URINE SPECIMEN Ordering Facility: [facility] Address: [address] [place] [address] Performed By: #### 2 4356-8 #### [facility] CLIA [id number] [address] [place] [address] Yeast.budding LM.HPF (Urine sed) [#/Area] Few Abnormal None Seen [facility] Comment on above: Order Comment: Speci men Type: URINE SPECIMEN Ordering Facility: [facility] Address: [address] [place] [address] Performed By: #### 2 4356-8 #### [facility] CLIA [id number] [address] [place] [address] [place] Yeast.hyphae LM.HPF (Urine sed) [#/Area] Few Abnormal None Seen [facility] Comment on above: Order Comment: Speci men Type: URINE SPECIMEN Ordering Facility: [facility] Address: [address] [id number] Performed By: #### 2 4356-8 #### [facility] CLIA [id number] [address] [place] [address] [place] CBC W Auto Differential pane l (Bld)on 05-24-2023 Basophils (Bld) [#/Vol] 0.04 x10*3/uL Normal 0.00-0.10 [facility] Comment on above: Performed By: #### 5 7021-8 #### RAFI KENDALL ([id number]) [facility] ([facility]) [address] [place] [address]6577 Basophils/100 WBC (Bld) 0.7 % Normal 0.0-2.0 [facility] Comment on above: Performed By: #### 5 7021-8 #### RAFI KENDALL ([id number]) [facility] ([facility]) [address] [place] [address] 97291 Eosinophils (Bld) [#/Vol] 0.09 x10*3/uL Normal 0.00-0.70 [facility] Comment on above: Performed By: #### 5 7021-8 #### RAFI KENDALL ([id number]) [facility] ([facility]) [address] [place] [address] 40705 Eosinophils/100 WBC (Bld) 1.6 % Normal 0.0-6.0 [facility] Comment on above: Performed By: #### 5 7021-8 #### RAFI KENDALL ([id number]) [facility] ([facility]) [address] [place] [address] 23633 Erythrocyte distribution width (RBC) [Ratio] 12.3 % Normal 11.5-14.5 [facility] Comment on above: Performed By: #### 5 7021-8 #### RAFI KENDALL ([id number]) [facility] ([facility]) [address] [place] [address] 58680 Hematocrit (Bld) [Volume fraction] 43.9 % Normal 36.0-46.0 [facility] Comment on above: Performed By: #### 5 7021-8 #### RAFI KENDALL ([id number]) [facility] ([facility]) [address] [place] [address] 38448 Hemoglobin (Bld) [Mass/Vol] 14.2 g/dL Normal 12.0-16.0 [facility] Comment on above: Performed By: #### 5 7021-8 #### RAFI KENDALL ([id number]) [facility] ([facility]) [address] [place] [address] 96900 Immature granulocytes (Bld) [#/Vol] 0.03 x10*3/uL Normal 0.00-0.70 [facility] Comment on above: Performed By: #### 5 7021-8 #### RAFI KENDALL ([id number]) [facility] ([facility]) [address] [place] [address] 73079 Immature granulocytes/100 WBC (Bld) 0.5 % Normal 0.0-0.9 [facility] Comment on above: Result Comment: Marlena ture Granulocyte Count (IG) includes promyelocytes, myelocytes and metamyelocytes but does not include bands. Percent differential counts (%) should be interpreted in the context of the absolute cell counts (cells/UL). Performed By: #### 5 7021-8 #### RAFI KENDALL ([id number]) [facility] ([facility]) [address] [place] [address] 77600 Lymphocytes (Bld) [#/Vol] 0.72 x10*3/uL Low 1.20-4.80 [facility] Comment on above: Performed By: #### 5 7021-8 #### RAFI KENDALL ([id number]) [facility] ([facility]) [address] [place] [address] 22468 Lymphocytes/100 WBC (Bld) 13.1 % Normal 13.0-44.0 [facility] Comment on above: Performed By: #### 5 7021-8 #### RAFI KENDALL ([id number]) [facility] ([facility]) [address] [place] [address] 91216 MCH (RBC) [Entitic mass] 28.3 pg Normal 26.0-34.0 [facility] Comment on above: Performed By: #### 5 7021-8 #### RAFI KENDALL ([id number]) [facility] ([facility]) [address] [place] [address] 59839 MCHC (RBC) [Mass/Vol] 32.3 g/dL Normal 32.0-36.0 [facility] Comment on above: Performed By: #### 5 7021-8 #### RAFI KENDALL ([id number]) [facility] ([facility]) [address] [place] [address] 33346 MCV (RBC) [Entitic vol] 88 fL Normal 80-100 [facility] Comment on above: Performed By: #### 5 7021-8 #### RAFI KENDALL ([id number]) [facility] ([facility]) [address] [place] [address] 24550 Monocytes (Bld) [#/Vol] 0.66 x10*3/uL Normal 0.10-1.00 [facility] Comment on above: Performed By: #### 5 7021-8 #### RAFI KENDALL ([id number]) [facility] ([facility]) [address] [place] [address] 98029 Monocytes/100 WBC (Bld) 12.0 % Normal 2.0-10.0 [facility] Comment on above: Performed By: #### 5 7021-8 #### RAFI KENDALL ([id number]) [facility] ([facility]) [address] [place] [address] 28537 Neutrophils (Bld) [#/Vol] 3.96 x10*3/uL Normal 1.20-7.70 [facility] Comment on above: Result Comment: Perc ent differential counts (%) should be interpreted in the context of the absolute cell counts (cells/uL). Performed By: #### 5 7021-8 #### RAFI KENDALL ([id number]) [facility] ([facility]) [address] [place] [address] 90838 Neutrophils/100 WBC (Bld) 72.1 % Normal 40.0-80.0 [facility] Comment on above: Performed By: #### 5 7021-8 #### RAFI KENDALL ([id number]) [facility] ([facility]) [address] [place] [address] 47836 Nucleated RBC/100 WBC (Bld) [Ratio] 0.0 /100 WBCs Normal 0.0-0.0 [facility] Comment on above: Performed By: #### 5 7021-8 #### RAFI KENDALL ([id number]) [facility] ([facility]) [address] [place] [address] 50307 Platelets (Bld) [#/Vol] 270 x10*3/uL Normal 150-450 [facility] Comment on above: Performed By: #### 5 7021-8 #### RAFI KENDALL ([id number]) [facility] ([facility]) [address] [place] [address] 44911 RBC (Bld) [#/Vol] 5.02 x10*6/uL Normal 4.00-5.[address] [facility] Comment on above: Performed By: #### 5 7021-8 #### RAFI KENDALL ([id number]) [facility] ([facility]) [address] [place] [address] 99858 WBC (Bld) [#/Vol] 5.5 x10*3/uL Normal 4.4-11.3 [facility] Comment on above: Performed By: #### 5 7021-8 #### RAFI KENDALL ([id number]) [facility] ([facility]) [address] [place] [address] 13239 Comprehensive metabolic 2000 panelon 05-24-2023 Albumin BCP dye [Mass/Vol] 4.4 g/dL Normal 3.4-5.0 [facility] Comment on above: Performed By: #### 2 4323-8 #### RAFI KENDALL ([id number]) [facility] ([facility]) [address] [place] [address] ALP [Catalytic activity/Vol] 99 U/L Normal 33-110 [facility] Comment on above: Performed By: #### 2 4323-8 #### RAFI KENDALL ([id number]) [facility] ([facility]) [address] [place] [address] ALT With P-5'-P [Catalytic activity/Vol] 22 U/L Normal 7-45 [facility] Comment on above: Result Comment: Nhung ents treated with Sulfasalazine may generate falsely decreased results for ALT. Performed By: #### 2 4323-8 #### RAFI KENDALL ([id number]) [facility] ([facility]) [address] [place] [address] Anion gap [Moles/Vol] 12 mmol/L Normal 10-20 [facility] Comment on above: Performed By: #### 2 432-8 #### RAFI KENDALL ([id number]) [facility] ([facility]) [address] [place] [address] AST With P-5'-P [Catalytic activity/Vol] 17 U/L Normal 9-39 [facility] Comment on above: Performed By: #### 2 432-8 #### RAFI KENDALL ([id number]) [facility] ([facility]) [address] [place] [address] Bilirubin [Mass/Vol] 0.5 mg/dL Normal 0.0-1.[address] [facility] Comment on above: Performed By: #### 2 4323-8 #### RAFI KENDALL ([id number]) [facility] ([facility]) [address] [place] [address] Calcium [Mass/Vol] 9.6 mg/dL Normal 8.6-10.3 [facility] Comment on above: Performed By: #### 2 432-8 #### RAFI KENDALL ([id number]) [facility] ([facility]) [address] [place] [address] Chloride [Moles/Vol] 106 mmol/L Normal 98-[address] [facility] Comment on above: Performed By: #### 2 4323-8 #### RAFI KENDALL ([id number]) [facility] ([facility]) [address] [place] [address] 65318 CO2 [Moles/Vol] 27 mmol/L Normal 21-32 [facility] Comment on above: Performed By: #### 2 4323-8 #### RAFI KENDALL ([id number]) [facility] ([facility]) [address] [place] [address] 69449 Creatinine [Mass/Vol] 0.61 mg/dL Normal 0.50-1.05 [facility] Comment on above: Performed By: #### 2 4323-8 #### RAFI KENDALL ([id number]) [facility] ([facility]) [address] [place] [address] 44605 GFR/1.73 sq M.predicted MDRD (S/P/Bld) [Vol rate/Area] mL/min/{1.73_m2} Normal >60 [facility] Comment on above: Result Comment: Calc ulations of estimated GFR are performed using the 2020 CKD-EPI Study Refit equation without the race variable for the IDMS-Traceable creatinine methods. https://jasn.asnjournals.org/content/early//ASN.98244 32561 Performed By: #### 2 4323-8 #### RAFI KENDALL ([id number]) [facility] ([facility]) [address] [place] [address] 71569 Glucose [Mass/Vol] 92 mg/dL Normal 74-99 [facility] Comment on above: Performed By: #### 2 4323-8 #### RAFI KENDALL ([id number]) [facility] ([facility]) [address] [place] [address] 51159 Potassium [Moles/Vol] 4.1 mmol/L Normal 3.5-5.3 [facility] Comment on above: Performed By: #### 2 4323-8 #### RAFI KENDALL ([id number]) [facility] ([facility]) [address] [place] [address] 24805 Protein [Mass/Vol] 7.0 g/dL Normal 6.4-8.2 [facility] Comment on above: Performed By: #### 2 4323-8 #### RAFI KENDALL ([id number]) [facility] ([facility]) [address] [place] [address] 79032 Sodium [Moles/Vol] 141 mmol/L Normal 136-145 [facility] Comment on above: Performed By: #### 2 4323-8 #### RAFI KENDALL ([id number]) [facility] ([facility]) [address] [place] [address] 52139 Urea nitrogen [Mass/Vol] 10 mg/dL Normal 6-23 [facility] Comment on above: Performed By: #### 2 4323-8 #### RAFI KENDALL ([id number]) [facility] ([facility]) [address] [place], [place] [address] Ferritinon 05-24-2023 Ferritin [Mass/Vol] 419 ng/mL High 8-150 [facility] Comment on above: Performed By: #### 2 276-4 #### RAFI KENDALL ([id number]) [facility] ([facility]) [address] [place], [place] [address] Ironon 05-24-2023 Iron [Mass/Vol] 103 ug/dL Normal 35-150 [facility] Comment on above: Performed By: #### 2 498-4 #### RAFI KENDALL ([id number]) [facility] ([facility]) [address] [place] [address] Therapy Communicationon 09-0 Therapy Communication Message SOCORRO GRACE was (D/C)- last seen: 08/20/22. Pt has not attended PT services for >/= 30 days. Per attendance policy they will be d/c at this time. Signatures Electronically signed by : Monik Mar PT; Jan 16 2023 2:15PM EST (Author) [facility] Communicationon 08-2 Therapy Communication Message SOCORRO GRACE was (D/C)- last seen: 08/13/22. Signatures Electronically signed by : TANIA Gutierrez/Lesley; Jan 06 2023 9:14AM EST (Author) [facility] PT Progress Noteon [...] code time is 43 minutes. Therapeutic exercise (57975):. *See NMR Below* *See Ther Activities* Sci [...] 2 x 10 ea (X). Neuromuscular Re-education (03839): timed minutes 43, units 3 . In [...] flexion to 90* 2x10 . Therapeutic Activity (99322):. Transfer training on and off floor with red mat on floor. (N) GAIT BELT Getting on to floor: (with assist of plinth) (X) - Stand -> half knee with R in f (more content not included)... Normal [facility] OT Progress Noteon 3 OT Progress Note [...] 2 weeks. LTG: SOCORRO will increase L transportation design engineer strength to 40 lbs to increase I [...] visits: 20 Authorization date range: year Medical Sarita / Subjective Patient reports:. Pt reporting ROM exercises for shoulder and elbow have been going well. Fall Risk: low Objective ROM/JointMobility: (Range of Motion in degrees) Shoulder: (Mccray: P! Denotes Pain with Movement, * Indicates [place] Resistant Otherwise Measurements are in Supine) Flexion: [...] Denotes Pain with Movement) Hand Dominance: Right Interactive Media Marketing Strategist Strength: level III 62 lbs on the [...] code time is 43 minutes. Therapeutic exercise (50440): timed minutes 28 . 3149-8325 HEP education and demo with light orange theraband for wrist, elbow and shoulder x15 . Therapeutic Activity (27609): timed minutes 15 . 6370-7895 ROM arc with finger to thumb opposition for each ring with middle and small attachment 5383-2088 SHR with no resistance for sup/pro with dowel down board x1. 'Scores and Scales' Signatures Electronically signed by : TANIA Gutierrez/Lesley; Aug 13 2022 5:34PM EST (Author) Normal [facility] PT Progress Noteon 3 PT Progress Note [...] for gait mechanics. not met Balance: UPDATED 10/25: In 3 weeks, pt will score 25/30 [...] code time is 42 minutes. Therapeutic exercise (09968): timed minutes 25, units 2 . *See [...] 2 x 10 ea (X). Neuromuscular Re-education (98995): timed minutes 17, units 1 . Star [...] UE flexion to 90* 2x10. Therapeutic Activity (03839):. Transfer training on and off floor with [...] Aug 06 2022 4:56PM EST (Author) Normal [facility] OT Progress Noteon 3 OT Progress Note [...] 2 weeks. LTG: SOCORRO will increase L transportation design engineer strength to 40 lbs to increase I [...] visits: 20 Authorization date range: year Medical Sarita 06/15 Subjective Patient reports:. Pt reporting some stiffness and pain in L hand this date. pt reporting she has used it a lot today. Pt reporting HEP is going well. Fall Risk: low Objective ROM/JointMobility: (Range of Motion in degrees) Shoulder: (Mccray: P! Denotes Pain with Movement, * Indicates [place] Resistant Otherwise Measurements are in Supine) Flexion: [...] Denotes Pain with Movement) Hand Dominance: Right Interactive Media Marketing Strategist Strength: level III 62 lbs on the [...] 43 minutes. Modalities: untimed minutes 5 . 5887-7934 Hot pack donned to loosen muscles and increase ROM for activity. Therapeutic Activity (00083): timed minutes 43 . 0327-0532 Hot pack donned to loosen muscles and increase ROM for activity AAROM over 11lb ball to increase wrist and finger ROM FM putting wooden pegs into board FM putting colored rings around pegs with finger to thumb opposition by color HH stacking 1 inch blocks. 'Scores and Scales' Signatures Electronically signed by : JAIME Gutierrez; Aug 01 2022 10:01AM EST (Author) Normal [facility] PT Progress Noteon 3 PT Progress [...] last session. She reports scheduling appt with [facility] for next Fri. Home program performing as directed: Yes. Precautions: Fall Risk: high Treatment Time in clinic started at 4:00 pm Time in clinic ended at 4:41 pm Total time in clinic is 41 minutes. Total timed code time is 40 minutes. Therapeutic exercise (24685): timed minutes 25, units 2 . *See [...] kick 2 x 10 ea. Neuromuscular Re-education (32721): timed minutes 15, units 1 . Staggered [...] cones -step on stars (N). Therapeutic Activity (23136):. Transfer training on and off floor with [...] Jul 23 2022 4:42PM EST (Author) Normal [facility] Initial [...] 2 weeks. LTG: SOCORRO will increase L transportation design engineer strength to 40 lbs to increase I [...] sclerosis . 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 [...] visits: 20 Authorization date range: year Medical Sarita Subjective Patient reports: Pt presenting to OT [...] P! Denotes Pain with Movement, * Indicates [place] Resistant Otherwise Measurements are in Supine) Flexion: [...] both very weak. Pt recommended to utilize [employer] for a custom AFO and to obtain [...] > 5 /5 MMT knee R- flex: /5 ext: 5 /5 L- flex: 4 / 5 > 4 /5 > 4+/5 > 5 /5 > 5 /5 ext: 5 /5 > 5 /5 >5 /5 > 5/5 > 5 /5 MMT ankle R- DF: / EV: / L- DF: 3- /5 > 1 /5 [...] code time is 38 minutes. Therapeutic exercise (39229): timed minutes 38, units 3 . *See NMR Below* *Se (more content not included)... Normal [facility] Therapy Re-eval Noteon 06-25 Therapy Re-eval Note [...] both very weak. Pt recommended to utilize [employer] for a custom AFO and to obtain [...] Ortho MMT hip R- flex, abd, add /5 L- flex: 4 /5 > 4 /5 > 4+/5 > 4+ /5 > 4+ /5 abd: 4 /5 > 4/5 >4+ /5 > 4+/5 > 4+ /5 add: 4+ /5 > 4+ /5 > 5/5 > 5/5 > 5 /5 MMT knee R- flex: / ext: / L- flex: 4 / 5 > 4 /5 > 4+/5 > 5 /5 > 5 /5 ext: 5 /5 > 5 /5 >5 /5 > 5/5 > 5 /5 MMT ankle R- DF: / EV: / L- DF: 3- /5 > 1 /5 [...] code time is 38 minutes. Therapeutic exercise (83340): timed minutes 38, units 3 . *See NMR Bel (more content not included)... Normal [facility] Absolute lymphocyte countOrd ered By: Dr. Duarte on 06-22-2022 Lymphocytes Auto (Unsp spec) [#/Vol] 0.54 10*3/uL 0.83-4.51 [facility] Basophil percentageOrdered B y: Dr. Duarte on 06-22-2022 Basophils/100 WBC (Bld) 1.1 % 0-1 [facility] Bilirubin [Mass/Vol] 0.50 mg/dL 0.20-1.00 [facility] Comment on above: For patients on eltr ombopag therapy, use of Dimension [place] TBIL is not recommended. Chloride [Moles/Vol] 110 mmol/L 98-107 [facility] Eosinophils/100 WBC (Bld) 3.4 % 0-5 [facility] Glucose [Mass/Vol] 98 mg/dL 74-106 [facility] Neutrophils (Bld) [#/Vol] 3.0 10*3/uL 2.0-7.7 [facility] Neutrophils/100 WBC (Bld) 67.9 % 47-70 [facility] Potassium [Moles/Vol] 4.0 mmol/L 3.5-5.1 [facility] Protein [Mass/Vol] 7.4 g/dL 6.4-8.2 [facility] Sodium [Moles/Vol] 141 mmol/L 136-145 [facility] WBC (Bld) [#/Vol] 4.4 10*3/uL 4.4-11.0 [facility] Blood erythrocytes count (nu mber/volume)Ordered By: Dr. Duarte on 06-22-2022 RBC (Bld) [#/Vol] 4.66 10*6/uL 4.2-5.4 [facility] Blood hemoglobin measurement (mass/volume)Ordered By: Dr. Duarte on 06-22-2022 Hemoglobin (Bld) [Mass/Vol] 13.1 g/dL 12.0-15.0 [facility] Blood lymphocytes/100 leukoc ytesOrdered By: Dr. Duarte on 06-22-2022 Lymphocytes/100 WBC (Bld) 12.4 % 19-41 [facility] Blood manual differential co mment interpretation (narrative result)Ordered By: Dr. Duarte on 06-22-2022 Manual differential comment Marcelo (Bld) [Interp] SCANNED [facility] Blood monocytes/100 leukocyt esOrdered By: Dr. Duarte on 06-22-2022 Monocytes/100 WBC (Bld) 14.7 % 0-10 [facility] Blood platelet mean volumeOr dered By: Dr. Duarte on 06-22-2022 Platelet mean volume (Bld) [Entitic vol] 9.1 fL 6.2-12.0 [facility] Determination of erythrocyte mean corpuscular volume (MCV)Ordered By: Dr. Duarte on 06-22-2022 MCV (RBC) [Entitic vol] 86.5 fL 81-99 [facility] Hematocrit Auto (Bld) [Volum e fraction]Ordered By: Dr. Duarte on 06-22-2022 Hematocrit (Bld) [Volume fraction] 40.3 % 37-47 [facility] Laboratory - Chemistry and C hemistry - challengeOrdered By: Dr. Duarte on 06-22-2022 ALP [Catalytic activity/Vol] 95 U/L 45-117 [facility] ALT [Catalytic activity/Vol] 41 U/L 13-56 [facility] CO2 [Moles/Vol] 26.0 mmol/L 21.0-32.0 [facility] Globulin (S) [Mass/Vol] 3.6 g/dL 2.2-4.2 [facility] Magnesium [Mass/Vol] 2.2 mg/dL 1.6-2.6 [facility] Urea nitrogen/Creatinine [Mass ratio] 19.7 mg/mg 10-20 [facility] - Hematology and Cell countsOrdered By: Dr. Duarte on 06-22-2022 Erythrocyte distribution width (RBC) [Entitic vol] 40.6 fL 35.1-43.9 [facility] Erythrocyte distribution width (RBC) [Ratio] 13.1 % 11.6-14.6 [facility] Immature granulocytes/100 WBC (Bld) 0.500 % 0.0-0.9 [facility] Comment on above: IG% - Immature Granu locytes (promyelocytes, myelocytes and metamyelocytes) > 1% indicates that a LEFT SHIFT is Present. MCH (RBC) [Entitic mass] 28.1 pg 27.0-32.0 [facility] Nucleated RBC/100 WBC (Bld) [Ratio] 0 % 0-5 [facility] MCHC Auto (RBC) [Mass/Vol]Or dered By: Dr. Duarte on 06-22-2022 MCHC (RBC) [Mass/Vol] 32.5 g/dL 32-36 [facility] No Panel InformationOrdered By: Dr. Duarte on 06-22-2022 Estimated GFR (MDRD) Amer 109 mL/min >60 [facility] Comment on above: GFR Calc Estimated GFR (MDRD) Non-Af Amer 90 mL/min >60 [facility] Comment on above: Non- GFR Calc Platelets bldOrdered By: Dr. Duarte on 06-22-2022 Platelets (Bld) [#/Vol] 249 10*3/uL 150-450 [facility] Serum or plasma albumin rigoberto urement (mass/volume)Ordered By: Dr. Duarte on 06-22-2022 Albumin [Mass/Vol] 3.8 g/dL 3.2-5.0 [facility] Serum or plasma albumin/glob ulin mass ratioOrdered By: Dr. Duarte on 06-22-2022 Albumin/Globulin [Mass ratio] 1.1 {ratio} 0.9-2.4 [facility] Serum or plasma calcitriol m easurement (mass/volume)Ordered By: Dr. Duarte on 06-22-2022 1,25-dihydroxyvitamin D3 [Mass/Vol] 52.8 pg/mL 24.8-81.5 [facility] Comment on above: Performed at: [email or web address] [address] [id number] Director: Sindhu Weaver MD, Phone: [phone] Serum or plasma calcium rigoberto urement (mass/volume)Ordered By: Dr. Duarte on 06-22-2022 Calcium [Mass/Vol] 9.2 mg/dL 8.5-10.1 [facility] Serum or plasma creatinine m easurement (mass/volume)Ordered By: Dr. Duarte on 06-22-2022 Creatinine [Mass/Vol] 0.71 mg/dL 0.55-1.02 [facility] Comment on above: The validity of the calculated GFR & GFRAA in patients over 70 years has not been determined. Clinical correlation is essential. Serum or plasma urea nitroge n measurement (mass/volume)Ordered By: Dr. Duarte on 06-22-2022 Urea nitrogen [Mass/Vol] 14 mg/dL 7-18 [facility] Thin prep Papanicolaou smear with manual screeningOrdered By: Dr. Duarte on 06-22-2022 Thin prep Papanicolaou smear with manual screening 22 U/L 15-37 [facility] Thin prep Papanicolaou smear with manual screening 5 5-15 [facility] OT Progress Noteon 3 OT Progress Note No report was sent [facility] Therapy Communicationon Therapy Communication Message SOCORRO GRACE canceled today per front office attendant pt is hurting today. Signatures Electronically signed by : Maranda Genao OTR/L; Jun 18 2022 10:50AM EST (Author) [facility] Therapy Communicationon 12- Therapy Communication Message SOCORRO GRACE canceled today . Appt cancelled secondary to illness. Signatures Electronically signed by : Aracelis Mg PTA; May 09 2022 5:24PM EST (Author) [facility] Therapy Communication Message SOCORRO GRACE canceled today 05/09/22. d/t illness. Signatures Electronically signed by : DIMPLE Hart; May 09 2022 1:48PM EST (Author) Normal [...] GOAL MET LTG: SOCORRO will increase L transportation design engineer strength by 15 lbs to increase I [...] Approved number of visits: 40 OT/PT [facility] OT/PT hard 40 Onset Date: 2021 Subjective Patient reports:. No pain this date. Patient states she ordered digit business executive and is having trouble with the lightest one. Fall Risk: moderate Objective ROM/JointMobility: (Range of Motion in degrees) Shoulder: (Mccray: P! Denotes Pain with Movement, * Indicates [place] Resistant Otherwise Measurements are in Supine) Flexion: [...] Denotes Pain with Movement) Hand Dominance: Right Interactive Media Marketing Strategist Strength: level III 60 lbs on the [...] 43 minutes. Modalities: untimed minutes 5 . [id number] -Hot pack donned to L hand prior to PROM, patient interview w/ hot pack donned. Therapeutic Activity (79497): timed minutes 43 . -Hot pack donned to L hand prior to PROM, patient interview w/ hot pack donned -R D1/ Alternating D2-D5 pinching mini pegs out of blue putty to place into pegboard x 25. 'Scor (more content not included)... Normal [facility] PT Progress Noteon 2 PT Progress Note [...] code time is 40 minutes. Therapeutic exercise (42523): timed minutes 15, units 1 . *See [...] kick 2 x 10 ea. Neuromuscular Re-education (64824): timed minutes 25, units 2 . ON [...] cones -step on stars (N). Therapeutic Activity (01830): timed minutes . Transfer training on and [...] : Elle (more content not included)... [facility] Therapy Communicationon 12-1 Therapy Communication Message SOCORRO GRACE canceled today 04/24/22. d/t illness. Signatures Electronically signed by : DIMPLE Hart; Apr 24 2022 2:01PM EST (Author) [facility] Therapy Communication Message SOCORRO GRACE canceled today [...] GOAL MET LTG: SOCORRO will increase L transportation design engineer strength by 15 lbs to increase I [...] number of visits: 40 OT/PT 10/15 [facility] OT/PT hard 40 Onset Date: 2021 Subjective Patient reports:. No pain this date. Patient states she ordered digit business executive and is having trouble with the lightest one. Fall Risk: moderate Objective ROM/JointMobility: (Range of Motion in degrees) Shoulder: (Mccray: P! Denotes Pain with Movement, * Indicates [place] Resistant Otherwise Measurements are in Supine) Flexion: [...] Denotes Pain with Movement) Hand Dominance: Right Interactive Media Marketing Strategist Strength: level III 60 lbs on the [...] 43 minutes. Modalities: untimed minutes 5 . [id number] -Hot pack donned to L hand prior to PROM, patient interview w/ hot pack donned. Therapeutic Activity (23971): timed minutes 43 . -Hot pack donned to L hand prior to PROM, patient interview w/ hot pack donned -L hand D1/D2 placing bolts on/taking off screws x 10 each -L D1/D2 pinching pennies out of green putty to place in slotted container x 20 -L hand (more content not included)... Normal [facility] PT Progress Noteon 2 PT Progress Note No report was sent [facility] PT Progress Note Therapy Diagnosis Assessed Contracture, [...] code time is 42 minutes. Therapeutic exercise (58550): timed minutes 12, units 1 . *See NMR Below* *See Ther Activities* Sci Fit /Nu Step L2 5 mins STS feet uneven x5, with feet even x5 (X) Standing hip abduction 2# x15 (X) Standing hip extension 2# x15 (X) Mini squat x20 (X) Lunges fwd/lat x15 ea (X) Plantigrade fire hydrant x15 ea Plantigrade donkey kick x15 ea. Neuromuscular Re-education (47271): timed minutes 15, units 1 . ON [...] bkwd amb -Weave between cones. Therapeutic Activity (12740): timed minutes 15, units 1 . Transfer [...] signed by : Yi Mcdaniel PTA; Apr 17 2022 3:27PM EST (Author) Electronically signed by : Monik Mar PT; Apr 18 2022 2 (more content not included)... Normal [facility] OT Progress Noteon 2 OT Progress [...] GOAL MET LTG: SOCORRO will increase L transportation design engineer strength by 15 lbs to increase I [...] this date. Pt has met goals with transportation design engineer strength, FMC and ROM. Pt still presenting with weakness on L side compared to R, reduced ROM, decreased FMC compared to R and decreased independence with ADLs/IADLs as indicated by quickdash. Pt educated on finger extensor tool for home use. Pt would continue to benefit from additional skilled therapy services. Extend POC to address new/updated goals. Pt makenzie increased finger strength this date, pt makenzie ability to use tip of thumb on [...] 5 Approved number of visits: 40 OT/PT / [facility] OT/PT hard 40 Onset Date: 2021 Subjective Patient reports:. No pain this date. Pt seen for recheck. Fall Risk: moderate Objective ROM/JointMobility: (Range of Motion in degrees) Shoulder: (Mccray: P! Denotes Pain with Movement, * Indicates [place] Resistant Otherwise Measurements are in Supine) Flexion: [...] Denotes Pain with Movement) Hand Dominance: Right Interactive Media Marketing Strategist Strength: level III 60 lbs on the [...] code time is 41 minutes. Therapeutic exercise (19661): timed minutes 23, units 2 . See NMR Below Sci Fit /Nu Step L2 5 mins STS feet uneven x5, with feet even x5 Standing hip abduction 2# x15 (P) Standing hip extension 2# x15 (P) Mini squat x20 (P) Lunges fwd/lat x15 ea (P) Plantigrade fire hydrant x15 ea Plantigrade donkey kick x15 ea. Neuromuscular Re-education (40462): timed minutes 18, units 1 . In [...] on foa (more content not included)... Normal [facility] Therapy Re-eval Noteon 03-28 Therapy Re-eval Note [...] GOAL MET LTG: SOCORRO will increase L transportation design engineer strength by 15 lbs to increase I [...] this date. Pt has met goals with transportation design engineer strength, FMC and ROM. Pt still presenting [...] number of visits: 40 OT/PT 09/14 [facility] OT/PT hard 40 Onset Date: 2021 Subjective Patient reports:. No pain this date. Pt seen for recheck. Fall Risk: moderate Objective ROM/JointMobility: (Range of Motion in degrees) Shoulder: (Mccray: P! Denotes Pain with Movement, * Indicates [place] Resistant Otherwise Measurements are in Supine) Flexion: [...] Denotes Pain with Movement) Hand Dominance: Right Interactive Media Marketing Strategist Strength: level III 60 lbs on the [...] 5/5 > 5/5 MMT knee R- flex: / ext: /5 L- flex: 4 / 5 > 4 /5 > 4+/5 > 5 /5 ext: 5 /5 > 5 /5 >5 /5 > 5/5 MMT ankle R- DF: EV: 5/5 L- DF: 3- /5 > [...] code time is 41 minutes. Therapeutic exercise (62075): timed minutes 23, units 2 . See NMR Below Sci Fit /Nu Step L2 5 mins STS feet uneven x5, with feet even x5 Standing hip abduction 2# x15 (P) Standing hip extension 2# x15 (P) Mini squat x20 (P) Lunges fwd/lat x15 ea (P) Plantigrade fire hydrant x15 ea Plantigrade donkey kick x15 ea. Neuromuscular Re-education (52296): timed minutes 18, units 1 . In [...] objects -Step (more content not included)... Normal [facility] OT Progress Noteon 2 OT Progress Note [...] 6 weeks. LTG: SOCORRO will increase L transportation design engineer strength by 15 lbs to increase I [...] number of visits: 40 OT/PT 08/15 [facility] OT/PT hard 40 Onset Date: 2021 Subjective Patient reports:. Pt reporting no pain this date. Pt reporting she tried the toothpick activity at home and it was challenging but good.. Fall Risk: moderate Objective ROM/JointMobility: (Range of Motion in degrees) Shoulder: (Mccray: P! Denotes Pain with Movement, * Indicates [place] Resistant Otherwise Measurements are in Supine) Flexion: [...] Denotes Pain with Movement) Hand Dominance: Right Interactive Media Marketing Strategist Strength: level III 45 lbs on the [...] minutes. Modalities: untimed minutes . Therapeutic Activity (87923): timed minutes 43 . [id number] Review of rubberband HEP Peg removal from yellow putty and placing into peg board x10 Push/Pull 11lb ball for extended fingers and wrist flex/ext Finger to thumb opposition alternating fingers to roll picker poker chips ROM arc with 1.5lb wrist weight to bring rings over ROM arc with middle addition x1 round trip. 'Scores and Scales' Signatures Electronically signed by : TANIA Gutierrez/Lesley; Mar 21 2022 4:52PM EST (Author) Normal [facility] PT Progress Noteon 2 PT Progress Note [...] code time is 38 minutes. Therapeutic exercise (40489): timed minutes 26, units 2 . See NMR Below Sci Fit /Nu Step L2 5 mins STS feet uneven x10, with feet even x10 Standing hip abduction x15 (I- ankle weight) Standing hip extension x15 (I- ankle weight) Mini squat x15 Lunges fwd/lat x10 ea (N) Plantigrade fire hydrant x15 ea (N) Plantigrade donkey kick x15 ea (N). Neuromuscular Re-education (47345): timed minutes 12, units 1 . In [...] Mar 21 2022 4:08PM EST (Author) [facility] Therapy Communicationon 10-3 Therapy Communication Message SOCORRO GRACE canceled today 03/11/22. Pt cancelled per front office attendant. Signatures Electronically signed by : Monik Mar PT; Mar 11 2022 10:48AM EST (Author) [facility] Therapy Communication Message SOCORRO GRACE canceled today 03/11/22. Secandary to illness. Signatures Electronically signed by : DIMPLE Hart; Mar 11 2022 9:57AM EST (Author) Normal [...] 6 weeks. LTG: SOCORRO will increase L transportation design engineer strength by 15 lbs to increase I [...] 3 Approved number of visits: 40 OT/PT 3/ [facility] OT/PT hard 40 Onset Date: 2021 Subjective Patient reports:. Pt reporting no pain this date. Pt reporting she was significant sore from last session and layed off her exercises. Pt denies any lingering soreness. Fall Risk: moderate Objective ROM/JointMobility: (Range of Motion in degrees) Shoulder: (Mccray: P! Denotes Pain with Movement, * Indicates [place] Resistant Otherwise Measurements are in Supine) Flexion: [...] Denotes Pain with Movement) Hand Dominance: Right Interactive Media Marketing Strategist Strength: level III 45 lbs on the [...] minutes. Modalities: untimed minutes . Therapeutic Activity (64859): timed minutes 43 . [id number] -twisting bolts onto board with L hand for FMC -beading pony beads onto string with L Hand -Rubber band HEP -Fine motor HEP yellow power web for composite finger flexion with 5 second holds x10 yellow power web for finger extensio x5 second holds x10. 'Scores and Scales' Signatures Electronically signed by : TANIA Gutierrez/Lesley; Mar 05 2022 5:54PM EST (Author) [facility] Progress Note Therapy Diagnosis Assessed Contracture, [...] you for this referral and please call [phone] with any questions or concerns. She will [...] /5 >5 /5 MMT ankle R- DF: EV: /5 L- DF: 3- /5 > 1 /5 [...] Functional Gait Assessment score: 01/08 > > 30 Treatment Time in clinic started at 4:22 pm Time in clinic ended at 4:58 pm Total time in clinic is 36 minutes. Total timed code time is 30 minutes. (more content not included)... Normal [facility] Therapy Re-eval Noteon 03-05 Therapy Re-eval Note [...] you for this referral and please call [phone] with any questions or concerns. She will [...] Assessment score: 830 > 16/30 > 21/30 Treatment Time in clinic started at 4:22 pm Time in clinic ended at 4:58 pm Total time in clinic is 36 minutes. Total timed code time is 30 surya (more content not included)... Normal [facility] OT Progress Noteon 2 OT [...] 6 weeks. LTG: SOCORRO will increase L transportation design engineer strength by 15 lbs to increase I [...] number of visits: 40 OT/PT 05/17 [facility] OT/PT hard 40 Onset Date: 2021 Subjective Fall Risk: moderate Objective ROM/JointMobility: (Range of Motion in degrees) Shoulder: (Mccray: P! Denotes Pain with Movement, * Indicates [place] Resistant Otherwise Measurements are in Supine) Flexion: [...] Denotes Pain with Movement) Hand Dominance: Right Interactive Media Marketing Strategist Strength: level III 45 lbs on the [...] 43 minutes. Modalities: untimed minutes 5 . [id number] x6 dips of paraffin donned for PROM of L hand with pt interview. Therapeutic Activity (41031): timed minutes 43 . [id number] x6 dips of paraffin donned for PROM of L hand with pt interview Finger extension spread in yellow putty to free pegs, pincer grasp to removed pegs from yellow putty HEP with pink putty for finger strengthening, demo and teach back. 'Scores and Scales' Signatures Electronically signed by : TANIA Gutierrez/Lesley; Feb 27 2022 5:12PM EST (Author) Normal [facility] PT Progress Noteon PT Progress Note Therapy Diagnosis Assessed Contracture, [...] code time is 39 minutes. Therapeutic exercise (13374): timed minutes 30, units 2 . See [...] elevator 10x for HEP . Neuromuscular Re-education (00133): timed minutes 9, units 1 . In // bars: SLS w/ 3 cone taps alt BLE x4 each (N) Tandem stance firm surface 2x15 ea B/L (N) . 'Scores and Scales' Signatures Electronically signed by : Charity Chapman, PT; Feb 27 2022 5:56PM EST (Author) Normal [facility] OT Initial Evalutationon [...] 6 weeks. LTG: SOCORRO will increase L transportation design engineer strength by 15 lbs to increase I [...] 1 Approved number of visits: 1 [facility] OT/PT hard 40 Onset Date: 2021 Subjective [...] code time is 26 minutes. Therapeutic exercise (97838): timed minutes 26, units 2 . Sci [...] Signatures Electronically signed by : Dorothy Aguayo PTA; Feb 19 2022 5:05PM EST (Author) Electronically signed by : Monik Mar, PT; Feb 21 2022 3:13PM EST [facility] PT Progress Noteon 2 [...] code time is 26 minutes. Therapeutic exercise (30829): timed minutes 38, units 3 . Sci [...] Signatures Electronically signed by : Sonal Douglas GRANTS DIRECTOR; Feb 14 2022 4:56PM EST (Author) Electronically signed by : Monik Mar, PT; Feb 15 2022 10:44AM EST [facility] PT Progress Noteon PT Progress Note Therapy Diagnosis Assessed Multiple [...] you for this referral and please call [phone] with any questions or concerns. Adult Risk [...] code time is 26 minutes. Therapeutic exercise (80841): timed minutes 26, units 2 . Recheck, review HEP, review POC NOT TODAY Sci Fit /Nu Step L1 5 mins HEP: pelvic floor TrA sets and self massage techniques (N) Checked pelvic symmetry : + L anterior pelvic rotation corrected with MET Basic Kegel 10x (N) HEP 2 step elevator 10x (N) for HEP Bridges 10x (N) Hook lying alt march with TrA x10 (N) Hook Lying hip add ISO with TrA x10 3 hold SLR with TrA 10x each (N) Seated hip abd orange TB x10. 'Scores and Scales' Signatures Electronically signed by : Monik Mar, PT; Feb 01 2022 4:48PM EST (Author) Normal [facility] Therapy Re-eval Noteon 02-01 Therapy Re-eval Note [...] you for this referral and please call [phone] with any questions or concerns. Adult Risk [...] code time is 26 minutes. Therapeutic exercise (25129): timed minutes 26, units 2 . Recheck, [...] Feb 01 2022 4:48PM EST (Author) Normal [facility] PT Progress Noteon [...] code time is 40 minutes. Therapeutic exercise (48697): timed minutes 40, units 3 . Sci Fit /Nu Step L1 5 mins HEP: pelvic floor TrA sets and self massage techniques (N) Checked pelvic symmetry : + L anterior pelvic rotation corrected with MET Basic Kegel 10x (N) HEP 2 step elevator 10x (N) for HEP Bridges 10x (N) Hook lying alt march with TrA x10 (N) Hook Lying hip add ISO with TrA x10 3 hold SLR with TrA 10x each (N) Seated hip abd orange TB x10. 'Scores and Scales' Signatures Electronically signed by : Aracelis Mg PTA; Jan 22 2022 5:12PM EST (Author) Electronically signed by : Monik Mar, PT; Jan 25 2022 9:30AM EST [facility] Absolute lymphocyte counton 12-24-2021 Lymphocytes Auto (Unsp spec) [#/Vol] 0.62 10*3/uL 0.83-4.51 [facility] Work Phone: Basophil percentageon 2021 Basophils/100 WBC (Bld) 0.7 % 0-1 [facility] Work Phone: Eosinophils/100 WBC (Bld) 1.7 % 0-5 [facility] Work Phone: Neutrophils (Bld) [#/Vol] 3.9 10*3/uL 2.0-7.7 [facility] Work Phone: Neutrophils/100 WBC (Bld) 72.5 % 47-70 [facility] Work Phone: WBC (Bld) [#/Vol] 5.4 10*3/uL 4.4-11.0 [facility] Work Phone: Blood erythrocytes count (nu mber/volume)on 12-24-2021 RBC (Bld) [#/Vol] 4.49 10*6/uL 4.2-5.4 [facility]: Blood hemoglobin measurement (mass/volume)on 12-24-2021 Hemoglobin (Bld) [Mass/Vol] 13.4 g/dL 12.0-15.0 [facility] Work Phone: [phone] Blood lymphocytes/100 leukoc yteson 12-24-2021 Lymphocytes/100 WBC (Bld) 11.5 % 19-41 [facility] Work Phone: [phone] Blood monocytes/100 leukocyt eson 12-24-2021 Monocytes/100 WBC (Bld) 13.2 % 0-10 [facility] Work Phone: [phone] Blood platelet mean volumeon 12-24-2021 Platelet mean volume (Bld) [Entitic vol] 9.3 fL 6.2-12.0 [facility] Work Phone: Determination of erythrocyte mean corpuscular volume (MCV)on 12-24-2021 MCV (RBC) [Entitic vol] 87.8 fL 81-99 [facility] Work Phone: [phone] Hematocrit Auto (Bld) [Volum e fraction]on 12-24-2021 Hematocrit (Bld) [Volume fraction] 39.4 % 37-47 [facility] Work Phone: Laboratory - Hematology and Cell countson 12-24-2021 Erythrocyte distribution width (RBC) [Entitic vol] 39.5 fL 35.1-43.9 [facility] Work Phone: [phone] Erythrocyte distribution width (RBC) [Ratio] 12.3 % 11.6-14.6 [facility] Work Phone: [phone] Immature granulocytes/100 WBC (Bld) 0.400 % 0.0-0.9 [facility] Work Phone: Comment on above: IG% - Immature Granu locytes (promyelocytes, myelocytes and metamyelocytes) > 1% indicates that a LEFT SHIFT is Present. MCH (RBC) [Entitic mass] 29.8 pg 27.0-32.0 [facility] Work Phone: Nucleated RBC/100 WBC (Bld) [Ratio] 0 % 0-5 [facility] Work Phone: MCHC Auto (RBC) [Mass/Vol]on 12-24-2021 MCHC (RBC) [Mass/Vol] 34.0 g/dL 32-36 [facility] Work Phone: Platelets bldon 12-24-2021 Platelets (Bld) [#/Vol] 252 10*3/uL 150-450 [facility] Work Phone: DIGITAL MAMM SCREENING W/ TO Watson 12-10-2021 DIGITAL MAMM SCREENING W/ AMRIK Patient Name: SOCORRO GRACE STUDY: Digital mammography screening with amrik; 12/10/2021 3:11 pm ACCESSION NUMBER(S): [id number] ORDERING CLINICIAN: AGUSTINA ANNE INDICATION: Screening. COMPARISON: [...] signed by: JUAN LUIS GRIMM MD Normal [facility] Mamm - Screening Mammogram w / Tomosynthesison 12-10-2021 MG Breast Screening Normal [facility] Work Phone: Absolute lymphocyte counton 10-11-2021 Lymphocytes Auto (Unsp spec) [#/Vol] 0.40 10*3/uL 0.83-4.51 [facility] Work Phone: [phone] Basophil percentageon 2021 Basophils/100 WBC (Bld) 0.8 % 0-1 [facility] Work Phone: [phone] Eosinophils/100 WBC (Bld) 1.7 % 0-5 [facility] Work Phone: [phone] Neutrophils (Bld) [#/Vol] 3.8 10*3/uL 2.0-7.7 [facility] Work Phone: [phone] Neutrophils/100 WBC (Bld) 78.0 % 47-70 [facility] Work Phone: [phone] WBC (Bld) [#/Vol] 4.8 10*3/uL 4.4-11.0 [facility] Work Phone: [phone] Blood erythrocytes count (nu mber/volume)on 10-11-2021 RBC (Bld) [#/Vol] 4.49 10*6/uL 4.2-5.4 [facility] Work Phone: Blood hemoglobin measurement (mass/volume)on 10-11-2021 Hemoglobin (Bld) [Mass/Vol] 13.5 g/dL 12.0-15.0 [facility] Work Phone: [phone] Blood lymphocytes/100 leukoc yteson 10-11-2021 Lymphocytes/100 WBC (Bld) 8.3 % 19-41 [facility] Work Phone: [phone] Blood manual differential co mment interpretation (narrative result)on 10-11-2021 Manual differential comment Marcelo (Bld) [Interp] See comment [facility] Work Phone: Comment on above: LYMPHOPENIA NOTED Blood monocytes/100 leukocyt eson 10-11-2021 Monocytes/100 WBC (Bld) 10.0 % 0-10 [facility] Work Phone: Blood platelet mean volumeon 10-11-2021 Platelet mean volume (Bld) [Entitic vol] 8.8 fL 6.2-12.0 [facility] Work Phone: Determination of erythrocyte mean corpuscular volume (MCV)on 10-11-2021 MCV (RBC) [Entitic vol] 90.2 fL 81-99 [facility] Work Phone: Hematocrit Auto (Bld) [Volum e fraction]on 10-11-2021 Hematocrit (Bld) [Volume fraction] 40.5 % 37-47 [facility] Work Phone: Laboratory - Hematology and Cell countson 10-11-2021 Erythrocyte distribution width (RBC) [Entitic vol] 40.7 fL 35.1-43.9 [facility] Work Phone: Erythrocyte distribution width (RBC) [Ratio] 12.6 % 11.6-14.6 [facility] Work Phone: [phone] Immature granulocytes/100 WBC (Bld) 1.200 % 0.0-0.9 [facility] Work Phone: Comment on above: IG% - Immature Granu locytes (promyelocytes, myelocytes and metamyelocytes) > 1% indicates that a LEFT SHIFT is Present. MCH (RBC) [Entitic mass] 30.1 pg 27.0-32.0 [facility] Work Phone: Nucleated RBC/100 WBC (Bld) [Ratio] 0 % 0-5 [facility] Work Phone: [phone] MCHC Auto (RBC) [Mass/Vol]on 10-11-2021 MCHC (RBC) [Mass/Vol] 33.3 g/dL 32-36 [facility] Work [facility]: Platelets bldon 10-11-2021 Platelets (Bld) [#/Vol] 248 10*3/uL 150-450 [facility] Work Phone: Absolute lymphocyte counton 09-20-2021 Lymphocytes Auto (Unsp spec) [#/Vol] 0.27 10*3/uL 0.83-4.51 [facility] Work Phone: Basophil percentageon 2021 Basophils/100 WBC (Bld) 0.7 % 0-1 [facility] Work Phone: Cholesterol [Mass/Vol] 274 mg/dL <200 [facility] Work Phone: Comment on above: <200 mg/dL Desirable 200-240 mg/dL Borderline >240 mg/dL High Risk Eosinophils/100 WBC (Bld) 2.5 % 0-5 [facility] Work Phone: Neutrophils (Bld) [#/Vol] 3.3 10*3/uL 2.0-7.7 [facility] [facility] Work Phone: Neutrophils/100 WBC (Bld) 75.1 % 47-70 [facility] Work Phone: Triglyceride [Mass/Vol] 148 mg/dL <199 [facility] Work Phone: Comment on above: The drugs N-Acetylcy steine and Metamizole may falsely depress this assay.Serum Triglycerides Reference Interval Normal <150 mg/dL Borderline high 150 - 199 mg/dL High 200 - 499 mg/dL Very High > or = 500 mg/dL WBC (Bld) [#/Vol] 4.4 10*3/uL 4.4-11.0 [facility] Work Phone: Blood erythrocytes count (nu mber/volume)on 09-20-2021 RBC (Bld) [#/Vol] 4.32 10*6/uL 4.2-5.4 [facility] Work Phone: Blood hemoglobin measurement (mass/volume)on 09-20-2021 Hemoglobin (Bld) [Mass/Vol] 12.9 g/dL 12.0-15.0 [facility] Work Phone: Blood lymphocytes/100 leukoc yteson 09-20-2021 Lymphocytes/100 WBC (Bld) 6.2 % 19-41 [facility] Work Phone: Blood manual differential co mment interpretation (narrative result)on 09-20-2021 Manual differential comment Marcelo (Bld) [Interp] SCANNED [facility] Work Phone: Blood monocytes/100 leukocyt eson 09-20-2021 Monocytes/100 WBC (Bld) 14.6 % 0-10 [facility] Work Phone: [phone] Blood platelet mean volumeon 09-20-2021 Platelet mean volume (Bld) [Entitic vol] 8.9 fL 6.2-12.0 [facility] Work Phone: [phone] Determination of erythrocyte mean corpuscular volume (MCV)on 09-20-2021 MCV (RBC) [Entitic vol] 89.4 fL 81-99 [facility] Work Phone: [phone] Hematocrit Auto (Bld) [Volum e fraction]on 09-20-2021 Hematocrit (Bld) [Volume fraction] 38.6 % 37-47 [facility] Work Phone: Iron measurement (mass/mass) on 09-20-2021 Iron (Unsp spec) [Mass/Mass] 131 ug/dL 50-170 [facility] Work Phone: [phone] Laboratory - Chemistry and C hemistry - challengeon 09-20-2021 Cobalamin (Vitamin B12) [Mass/Vol] 830 pg/mL 211-911 [facility] Work Phone: Laboratory - Hematology and Cell countson 09-20-2021 Erythrocyte distribution width (RBC) [Entitic vol] 40.9 fL 35.1-43.9 [facility] Work Phone: [phone] Erythrocyte distribution width (RBC) [Ratio] 12.4 % 11.6-14.6 [facility] Work Phone: [phone] Immature granulocytes/100 WBC (Bld) 0.900 % 0.0-0.9 [facility] Work Phone: [phone] Comment on above: IG% - Immature Granu locytes (promyelocytes, myelocytes and metamyelocytes) > 1% indicates that a LEFT SHIFT is Present. MCH (RBC) [Entitic mass] 29.9 pg 27.0-32.0 [facility] Work Phone: Nucleated RBC/100 WBC (Bld) [Ratio] 0 % 0-5 [facility] Work Phone: MCHC Auto (RBC) [Mass/Vol]on 09-20-2021 MCHC (RBC) [Mass/Vol] 33.4 g/dL 32-36 [facility] Work Phone: No Panel Informationon 09-20 Total Iron Binding Capacity 392 ug/dL 250-450 [facility] Work Phone: [phone] Platelets bldon 09-20-2021 Platelets (Bld) [#/Vol] 235 10*3/uL 150-450 [facility] Work Phone: Serum or plasma cholesterol in HDL measurement (mass/volume)on 09-20-2021 Cholesterol in HDL [Mass/Vol] 99 mg/dL >40 [facility] Work Phone: Comment on above: The drugs N-Acetylcy steine and Metamizole may falsely depress this assay. Reference Range HDL <40 mg/dL Low HDL Cholesterol HDL >or= 60 mg/dL High HDL Cholesterol Serum or plasma cholesterol in VLDL measurement (mass/volume)on 09-20-2021 Cholesterol in VLDL [Mass/Vol] 30 mg/dL 5-40 [facility] Work Phone: [phone] Serum or plasma iron saturat ion measurement (mass fraction)on 09-20-2021 Iron saturation [Mass fraction] 33.4 % 15.0-55.0 [facility] Work Phone: [phone] Serum or plasma low density lipoprotein (LDL) cholesterol measurement (mass/volume)on 09-20-2021 Cholesterol in LDL [Mass/Vol] 145 mg/dL 0-130 [facility] Work Phone: Absolute lymphocyte counton 08-23-2021 Lymphocytes Auto (Unsp spec) [#/Vol] 0.34 10*3/uL 0.83-4.51 [facility] Work Phone: Basophil percentageon 2021 Basophils/100 WBC (Bld) 0.6 % 0-1 [facility] Work Phone: Eosinophils/100 WBC (Bld) 2.0 % 0-5 [facility] Work Phone: Neutrophils (Bld) [#/Vol] 4.2 10*3/uL 2.0-7.7 [facility] Work Phone: Neutrophils/100 WBC (Bld) 77.4 % 47-70 [facility] Work Phone: WBC (Bld) [#/Vol] 5.4 10*3/uL 4.4-11.0 [facility] Work Phone: Blood erythrocytes count (nu mber/volume)on 08-23-2021 RBC (Bld) [#/Vol] 4.34 10*6/uL 4.2-5.4 [facility] Work Phone: Blood hemoglobin measurement (mass/volume)on 08-23-2021 Hemoglobin (Bld) [Mass/Vol] 13.2 g/dL 12.0-15.0 [facility] Work Phone: Blood lymphocytes/100 leukoc yteson 08-23-2021 Lymphocytes/100 WBC (Bld) 6.3 % 19-41 [facility] Work Phone: Blood manual differential co mment interpretation (narrative result)on 08-23-2021 Manual differential comment Marcelo (Bld) [Interp] See comment [facility] Work Phone: [phone] Comment on above: LYMPHOPENIA NOTED Blood monocytes/100 leukocyt eson 08-23-2021 Monocytes/100 WBC (Bld) 13.0 % 0-10 [facility] Work Phone: Blood platelet mean volumeon 08-23-2021 Platelet mean volume (Bld) [Entitic vol] 9.5 fL 6.2-12.0 [facility] Work Phone: Determination of erythrocyte mean corpuscular volume (MCV)on 08-23-2021 MCV (RBC) [Entitic vol] 88.5 fL 81-99 [facility] Work Phone: Hematocrit Auto (Bld) [Volum e fraction]on 08-23-2021 Hematocrit (Bld) [Volume fraction] 38.4 % 37-47 [facility] Work Phone: [phone] Laboratory - Hematology and Cell countson 08-23-2021 Erythrocyte distribution width (RBC) [Entitic vol] 41.1 fL 35.1-43.9 [facility] Work Phone: [phone] Erythrocyte distribution width (RBC) [Ratio] 12.6 % 11.6-14.6 [facility] Work Phone: [phone] Immature granulocytes/100 WBC (Bld) 0.700 % 0.0-0.9 [facility] Work Phone: [phone] Comment on above: IG% - Immature Granu locytes (promyelocytes, myelocytes and metamyelocytes) > 1% indicates that a LEFT SHIFT is Present. MCH (RBC) [Entitic mass] 30.4 pg 27.0-32.0 [facility] Work Phone: [phone] Nucleated RBC/100 WBC (Bld) [Ratio] 0 % 0-5 [facility] Work Phone: [phone] MCHC Auto (RBC) [Mass/Vol]on 08-23-2021 MCHC (RBC) [Mass/Vol] 34.4 g/dL 32-36 [facility] Work Phone: [phone] Platelets bldon 08-23-2021 Platelets (Bld) [#/Vol] 220 10*3/uL 150-450 [facility] Work Phone: [phone] Absolute lymphocyte counton 06-25-2021 Lymphocytes Auto (Unsp spec) [#/Vol] 0.33 10*3/uL 0.83-4.51 [facility] Work Phone: [phone] Basophil percentageon 2021 Basophils/100 WBC (Bld) 0.8 % 0-1 [facility] Work Phone: [phone] Eosinophils/100 WBC (Bld) 3.3 % 0-5 [facility] Work Phone: [phone] Neutrophils (Bld) [#/Vol] 2.6 10*3/uL 2.0-7.7 [facility] Work Phone: [phone] Neutrophils/100 WBC (Bld) 72.0 % 47-70 [facility] Work Phone: [phone] WBC (Bld) [#/Vol] 3.6 10*3/uL 4.4-11.0 [facility] Work Phone: Blood erythrocytes count (nu mber/volume)on 06-25-2021 RBC (Bld) [#/Vol] 4.60 10*6/uL 4.2-5.4 [facility] Work Phone: Blood hemoglobin measurement (mass/volume)on 06-25-2021 Hemoglobin (Bld) [Mass/Vol] 14.1 g/dL 12.0-15.0 [facility] Work Phone: Blood lymphocytes/100 leukoc yteson 06-25-2021 Lymphocytes/100 WBC (Bld) 9.2 % 19-41 [facility] Work Phone: Blood manual differential co mment interpretation (narrative result)on 06-25-2021 Manual differential comment Marcelo (Bld) [Interp] SCANNED [facility] Work Phone: Comment on above: LYMPHOPENIA NOTED Blood monocytes/100 leukocyt eson 06-25-2021 Monocytes/100 WBC (Bld) 13.9 % 0-10 [facility] Work Phone: Blood platelet mean volumeon 06-25-2021 Platelet mean volume (Bld) [Entitic vol] 9.0 fL 6.2-12.0 [facility] Work Phone: Determination of erythrocyte mean corpuscular volume (MCV)on 06-25-2021 MCV (RBC) [Entitic vol] 86.3 fL 81-99 [facility] Work Phone: Hematocrit Auto (Bld) [Volum e fraction]on 06-25-2021 Hematocrit (Bld) [Volume fraction] 39.7 % 37-47 [facility] Work Phone: Laboratory - Hematology and Cell countson 06-25-2021 Erythrocyte distribution width (RBC) [Entitic vol] 42.0 fL 35.1-43.9 [facility] Work Phone: [phone] Erythrocyte distribution width (RBC) [Ratio] 13.5 % 11.6-14.6 [facility] Work Phone: [phone] Immature granulocytes/100 WBC (Bld) 0.800 % 0.0-0.9 [facility] Work Phone: [phone] Comment on above: IG% - Immature Granu locytes (promyelocytes, myelocytes and metamyelocytes) > 1% indicates that a LEFT SHIFT is Present. MCH (RBC) [Entitic mass] 30.7 pg 27.0-32.0 [facility] Work Phone: Nucleated RBC/100 WBC (Bld) [Ratio] 0 % 0-5 [facility] Work Phone: [phone] MCHC Auto (RBC) [Mass/Vol]on 06-25-2021 MCHC (RBC) [Mass/Vol] 35.5 g/dL 32-36 [facility] Work Phone: No Panel Informationon 06-25 Ionized Calcium 5.4 mg/dL [facility] Work Phone: Comment on above: Performed at: [address] Director: Kvng Branham PhD, Phone: [phone] Platelets bldon 06-25-2021 Platelets (Bld) [#/Vol] 243 10*3/uL 150-450 [facility] Work Phone: Review by pathologiston 06-12 Pathologist review Marcelo (Unsp spec) [Interp] Reviewed [facility] Work Phone: Comment on above: Previous reported re sult: [place] Edited by: DANYELL on 06/27/21:926Lymphopenia.Clinical correlation suggested.[place] D.O. 06/27/21 AMENDED REPORT 06/27/21926 PATH REV previously reported as: September [facility]Con 05-09-2021 Erythrocyte distribution width (RBC) [Ratio] 13.6 % Normal 11.5 - 14.5 [facility] Comment on above: Performed By: #### C BC #### [address] [address] Hematocrit (Bld) [Volume fraction] 41.5 % Normal 36.0 - 46.0 [facility] Comment on above: Performed By: #### C BC #### [address] [address] Hemoglobin (Bld) [Mass/Vol] 13.9 g/dL Normal 12.0 - 16.0 [facility] Comment on above: Performed By: #### C BC #### [address] [address] MCHC (RBC) [Mass/Vol] 33.5 g/dL Normal 32.0 - 36.0 [facility] Comment on above: Performed By: #### C BC #### [address] [address] MCV (RBC) [Entitic vol] 90 fL Normal 80 - 100 [facility] Comment on above: Performed By: #### C BC #### [address] [address] Platelets (Bld) [#/Vol] 273 10*3/uL Normal 150 - 450 [facility] Comment on above: Performed By: #### C BC #### [address] [address] RBC 4.63 x10E12/L Normal 4.00 - 5.20 [facility] Comment on above: Performed By: #### C BC #### [address] [address] WBC (Bld) [#/Vol] 4.4 10*3/uL Normal 4.4 - 11.3 [facility] Comment on above: Performed By: #### C BC #### [address] [address] COMPREHENSIVE PANELon 2020 Albumin [Mass/Vol] 4.6 g/dL Normal 3.4 - 5.0 [facility] Comment on above: Performed By: #### C MP #### [address] [address] ALP [Catalytic activity/Vol] 61 U/L Normal 33 - 110 [facility] Comment on above: Performed By: #### C MP #### [address] [address] ALT [Catalytic activity/Vol] 18 U/L Normal 7 - 45 [facility] Comment on above: Result Comment: Nhung ents treated with Sulfasalazine may generate falsely decreased results for ALT. Performed By: #### C MP #### [address] [address] Anion gap [Moles/Vol] 10 mmol/L Normal 10 - 20 [facility] Comment on above: Performed By: #### C MP #### [address] [address] AST [Catalytic activity/Vol] 21 U/L Normal 9 - 39 [facility] Comment on above: Performed By: #### C MP #### [address] [address] Bilirubin [Mass/Vol] 1.1 mg/dL Normal 0.0 - 1.2 [facility] Comment on above: Performed By: #### C MP #### [address] [address] Calcium [Mass/Vol] 10.5 mg/dL High 8.6 - 10.3 [facility] Comment on above: Performed By: #### C MP #### [address] [address] Chloride [Moles/Vol] 101 mmol/L Normal 98 - 107 [facility] Comment on above: Performed By: #### C MP #### [address] [address] Creatinine [Mass/Vol] 0.65 mg/dL Normal 0.50 - 1.05 [facility] Comment on above: Performed By: #### C MP #### [address] [address] GFR- AM. >60 Normal >60 [facility] Comment on above: Result Comment: CALC ULATIONS OF ESTIMATED GFR ARE PERFORMED USING THE MDRD STUDY EQUATION FOR THE IDMS-TRACEABLE CREATININE METHODS. CLIN CHEM 2007;53:766-72 Performed By: #### C MP #### [address] [address] GFR-NON AM. >60 Normal >60 [facility] Comment on above: Performed By: #### C MP #### [address] [address] Glucose [Mass/Vol] 83 mg/dL Normal 74 - 99 [facility] Comment on above: Performed By: #### C MP #### [address] [address] HCO3 (Bld) [Moles/Vol] 30 mmol/L Normal 21 - 32 [facility] Comment on above: Performed By: #### C MP #### [address] [address] Potassium [Moles/Vol] 4.1 mmol/L Normal 3.5 - 5.3 [facility] Comment on above: Performed By: #### C MP #### [address] [address] Protein [Mass/Vol] 8.2 g/dL Normal 6.4 - 8.2 [facility] Comment on above: Performed By: #### C MP #### [address] [address] Sodium [Moles/Vol] 137 mmol/L Normal 136 - 145 [facility] Comment on above: Performed By: #### C MP #### [address] [address] Urea nitrogen [Mass/Vol] 11 mg/dL Normal 6 - 23 [facility] Comment on above: Performed By: #### C MP #### [address] [address] DS-DNA Abon 04-12-2019 DS-DNA Ab SEE BELOW Normal [facility] Comment on above: Result Comment: DNA Antibody w/ Conf. 13 <30 IU/mL Negative for ds DNA Antibodies Negative: <30 IU/mL Equivocal: 30-74 IU/mL Positive: >74 IU/mL Performing Laboratory: [facility] [address] [place] [address] Performed By: #### D NADX #### [facility] [address] [place] [address] C3on 08-19-2018 C3 139.0 mg/dL Normal 90.0-180.0 [facility] Comment on above: Performed By: #### C 3 #### [place] [address] C4on 08-19-2018 C4 24.3 mg/dL Normal 10.0-40.0 [facility] Comment on above: Performed By: #### C 4 #### [place] [address] CPKon 08-19-2018 CK [Catalytic activity/Vol] 110 U/L Normal 26-192 [facility] Comment on above: Performed By: #### C K #### [place] [address] Creatinine,Urineon 9 Creatinine,Urine 57.3 mg/dL Normal [facility] Comment on above: Performed By: #### C REAU #### [place] [address] Urinalysis, reflexon 019 Reflex Comment see below Normal [facility] Comment on above: Result Comment: Refl ex to culture is not indicated based on established laboratory criteria. Performed By: #### U RIN #### [place] [address] Bacteria LM.HPF (Urine sed) [#/Area] NONE Normal None [facility] Comment on above: Performed By: #### U RIN #### [place] [address] Ep Cells Urine 1.7 /hpf Normal 0.0-5.0 [facility] Comment on above: Performed By: #### U RIN #### [facility] [address] [place] [address] Hyaline Cast 0.0 /lpf Normal 0.0-1.0 [facility] Comment on above: Performed By: #### U RIN #### [facility] [address] [place] [address] RBC LM.HPF (Urine sed) [#/Area] 0.2 /[HPF] Normal 0.0-5.0 [facility] Comment on above: Performed By: #### U RIN #### [place] [address] WBC, reflex 1.50 /hpf Normal 0.00-5.00 [facility] Comment on above: Performed By: #### U RIN #### [place] [address] Appearance (U) CLEAR Normal [facility] Comment on above: Performed By: #### U RIN #### [place] [address] Bilirubin (U) [Mass/Vol] Negative Normal Negative [facility] Comment on above: Performed By: #### U RIN #### [place] [address] Color (U) YELLOW Normal [facility] Comment on above: Performed By: #### U RIN #### [place] [address] Glucose Ql (U) Negative Normal Negative [facility] Comment on above: Performed By: #### U RIN #### [place] [address] Hemoglobin,Urine Negative Normal Negative [facility] Comment on above: Performed By: #### U RIN #### [place] [address] Ketone Urine Negative Normal Negative [facility] Comment on above: Performed By: #### U RIN #### [place] [address] Leukocyte esterase Test strip Ql (U) TRACE Abnormal Negative [facility] Comment on above: Performed By: #### U RIN #### [facility] [address] [place], [place] [address] Nitrite reflex Negative Normal Negative [facility] Comment on above: Performed By: #### U RIN #### [facility] [address] [place] [address] pH (U) 5.5 [pH] Normal 5.0-8.0 [facility] Comment on above: Performed By: #### U RIN #### [place] [address] Protein (U) [Mass/Vol] Negative Normal Negative [facility] Comment on above: Performed By: #### U RIN #### [place] [address] Specific [place], Ur 1.014 Normal 1.005-1 .03 0 [facility] Comment on above: Performed By: #### U RIN #### [place] [address] Urobilinogen,Ur 0.2 EU/dL Normal 0.0-1.0 [facility] Comment on above: Performed By: #### U RIN #### [place] [address] Urine Proteinon 08-19-2018 Protein Ql (U) 14.6 mg/dL High 0.0-11.9 [facility] Comment on above: Performed By: #### U P #### [place] [address] Lipid Profileon 08-12-2018 Cholesterol in HDL mass conc 113 mg/dL High 40-[address] [facility] Comment on above: Performed By: #### 1 [id number] #### RELL Send Outs Subsection [address] [place] [address] Cholesterol in LDL mass conc 97 mg/dL Normal 0-[address] [facility] Comment on above: Result Comment: <100 OPTIMAL 100-129 NEAR / ABOVE OPTIMAL 130-159 BORDERLINE HIGH 160-189 HIGH >190 VERY HIGH CALC LDL NOT VALID WHEN TRIGLYCERIDE IS >400 MG/DL Performed By: #### 1 [id number] #### RELL Send [employer]section [address] [place] [address] [place] [address] Cholesterol in VLDL mass conc 13 mg/dL Normal 0-[address] [facility] Comment on above: Performed By: #### 1 [id number] #### RELL Send Outs Subsection [facility] [place] [address] Cholesterol mass conc 223 mg/dL High 0-199 [facility] Comment on above: Result Comment: TOTA L CHOLEESTEROL: <200 NORMAL 200 - 239 BORDERLINE HIGH >240 HIGH Performed By: #### 1 [id number] #### RELL Send Outs Subsection [address] [place] [address] Triglyceride mass conc 63 mg/dL Normal 0-149 [facility] Comment on above: Result Comment: AGE DESIRABLE BORDERLINE HIGH 91 D - 9 Y 0 - 74 75 - 99 > 100 10 - 19 Y 0 - 89 90 - 129 > 130 20 -24 Y 0 - 114 115 - 149 > 150 > 25 0 - 149 150 - 199 200 - 499 Performed By: #### 1 [id number] #### RELL Send Out[employer]section [address] [place] [address] MRI Brain w/ + w/o Contrasto n 08-05-2018 MRI Brain w/ + w/o Contrast Exam Date/Time: 08/05/2018 11:20 EDT Reason for Exam: MULTIPLE SCLEROSIS Report STUDY: MRI Brain w/ + w/o Contrast; 08/05/2018 11:20 am INDICATION: MULTIPLE SCLEROSIS. Personal medical history of multiple sclerosis. COMPARISON: None. ACCESSION NUMBER(S): [id number] ORDERING CLINICIAN: Arlene Buckley TECHNIQUE: Axial T2, [...] by: Chuck Constantino MD Technologist: STEFANIA Normal [facility] Auto Diffon 07-21-2018 Basophils #/vol (Bld) 0.0 E3/mcL Normal 0.0-0.2 [facility] Comment on above: Order Comment: Order Added by Discern Expert. Performed By: #### 2 [id number] #### RELL RemHemo [address] [place] [address] Basophils/100 WBC (Bld) 0.6 % Normal 0.0-2.[address] [facility] Comment on above: Order Comment: Order Added by Discern Expert. Performed By: #### 2 [id number] #### RELL RemHemo [address] [place] [address] Eos Absolute 0.1 E3/mcL Normal 0.0-0.[address] [facility] Comment on above: Order Comment: Order Added by Discern Expert. Performed By: #### 2 [id number] #### RELL RemHemo [address] [place] [address] Eosinophils/100 WBC (Bld) 1.5 % Normal 0.0-11.[address] [facility] Comment on above: Order Comment: Order Added by Discern Expert. Performed By: #### 2 [id number] #### RELL Rem[facility]emo [address] [place] [address] Lymphocytes #/vol (Bld) 0.7 E3/mcL Low 1.2-3.[address] [facility] Comment on above: Order Comment: Order Added by Discern Expert. Performed By: #### 2 [id number] #### RELL ReeseHemo [address] [place] [address] Lymphocytes/100 WBC (Bld) 12.1 % Low 20.0-55.[address] [facility] Comment on above: Order Comment: Order Added by Discern Expert. Performed By: #### 2 [id number] #### RELL ReeseHemo [address] [place], [place] [address] [place] Absolute 0.6 E3/mcL Normal 0.0-0.[address] [facility] Comment on above: Order Comment: Order Added by Discern Expert. Performed By: #### 2 [id number] #### RELL ReeseHemo [address] [place] [address] Monocytes/100 WBC (Bld) 10.0 % Normal 0.0-10.[address] [facility] Comment on above: Order Comment: Order Added by Discern Expert. Performed By: #### 2 [id number] #### RELL ReeseHemo [address] [place], [place] [address] Neutro Absolute 4.5 E3/mcL Normal 1.4-6.[address] [facility] Comment on above: Order Comment: Order Added by Brittnee Expert. Performed By: #### 2 [id number] #### RELL Chano [address] [place], [place] [address] Neutro Auto 75.8 % High 37.0-75.[address] [facility] Comment on above: Order Comment: Order Added by Brittnee Expert. Performed By: #### 2 [id number] #### RELL ReeseHemo [address] [place] [address] CBC w/ Auto Diffon 9 Erythrocyte distribution width Ratio (RBC) 13.6 % Normal 11.5-14.[address] [facility] Comment on above: Performed By: #### 2 [id number] #### RELL Chano [address] [place], [place] [address] Hematocrit Volume Fraction (Bld) 40.6 % Normal 36.0-48.[address] [facility] Comment on above: Performed By: #### 2 [id number] #### RELL Mary AnnHemo [address] [place] [id number] Hemoglobin mass conc (Bld) 13.7 g/dL Normal 12.0-16.[address] [facility] Comment on above: Performed By: #### 2 [id number] #### RELL ReeseHemo [address] [place] [id number] MCH Entitic mass (RBC) 30.9 pg Normal 27.0-31.0 [facility] Comment on above: Performed By: #### 2 [id number] #### RELL ReeseHemo [address] [place] [id number] MCHC mass conc (RBC) 33.7 g/dL Normal 33.0-37.0 [facility] Comment on above: Performed By: #### 2 [id number] #### RELLYahaira ReeseHemo [address] [place], [place] [address] MCV Entitic volume (RBC) 91.6 fL Normal 78.0-100.[address] [facility] Comment on above: Performed By: #### 2 [id number] #### RELLYahaira ReeseHemo [address] [place], [place] [address] Platelet mean volume Entitic volume (Bld) 7.5 fL Normal 7.4-11.[address] [facility] Comment on above: Performed By: #### 2 [id number] #### RELLYahaira ReeseHemo [address] [place], [place] [address] Platelets #/vol (Bld) 223 E3/mcL Normal 130-400 [facility] Comment on above: Performed By: #### 2 [id number] #### RELLYahaira ReeseHemo [facility] [place] [id number] RBC #/vol (Bld) 4.44 E6/mcL Normal 3.90-5.40 [facility] Comment on above: Performed By: #### 2 [id number] #### RELLYahaira ReeseHemo [facility] [place] [id number] WBC #/vol (Bld) 5.9 E3/mcL Normal 3.6-11.[address] [facility] Comment on above: Performed By: #### 2 [id number] #### RELLYahaira ReeseHemo [facility] [place] [id number] Ferritinon 07-21-2018 Ferritin mass conc 144.0 ng/mL Normal 8.0-150.0 [facility] Comment on above: Performed By: #### 1 [id number] #### RELL Send Outs Subsection [address] [place] [address] Folateon 07-21-2018 Folate Lvl >23.90 Normal >=5.[address] [facility] [facility] Comment on above: Performed By: #### 2 [id number] #### RELL RemHemo [address] [place] [address]50 Hep Func Panelon 07-21-2018 Albumin mass conc 4.5 g/dL Normal 3.4-5.0 [facility] Comment on above: Performed By: #### 1 [id number] #### RELL Send Outs Subsection [address] [place] [address] 29820 Albumin/Globulin mass ratio 1.6 {ratio} Normal 1.1-1.[address] [facility] Comment on above: Performed By: #### 1 [id number] #### RELL Send Outs Subsection [address] [place] [address] 07730 Alk Phos 66 Int._Unit/L Normal 33-[address] [facility] Comment on above: Performed By: #### 1 [id number] #### RELL Send Outs Subsection [address] [place] [address] 70327 ALT enzyme act/vol 18 Int._Unit/L Normal 7-45 [facility] Comment on above: Performed By: #### 1 [id number] #### RELL Send Outs Subsection [address] [place] [address] 21472 AST enzyme act/vol 23 Int._Unit/L Normal 9-39 [facility] Comment on above: Performed By: #### 1 [id number] #### RELL Send Outs Subsection [address] [place] [address] 62588 Bili Direct 0.14 mg/dL Normal 0.00-0.[address] [facility] Comment on above: Performed By: #### 1 [id number] #### RELL Send Outs Subsection [address] [place] [address] 79994 Bili Indirect 0.48 mg/dL Normal [facility] Comment on above: Result Comment: No e stablished ranges available for the indirect bilirubin Performed By: #### 1 [id number] #### RELL Send Outs Subsection [address] [place] [address] Bili Total 0.62 mg/dL Normal 0.00-1.[address] [facility] Comment on above: Performed By: #### 1 [id number] #### RELL Send Outs Subsection [address] [place] [address] Globulin mass conc (S) 3.0 g/dL Normal 2.0-4.0 [facility] Comment on above: Performed By: #### 1 [id number] #### RELL Send Outs Subsection [address] [place] [address] Protein mass conc 7.3 g/dL Normal 6.4-8.2 [facility] Comment on above: Performed By: #### 1 [id number] #### RELL Send Outs Subsection [facility] [place] [address] Ironon 07-21-2018 Iron mass conc 107 microgram/dL Normal 35-150 [facility] Comment on above: Performed By: #### 1 [id number] #### RELL Send Outs Subsection [facility] [place] [address] Retic Counton 07-21-2018 Reticulocyte 1.4 % Normal 0.5-1.[address] [facility] Comment on above: Performed By: #### 2 [id number] #### RELL RemHemo [address] [place] [address] 95851 Vit B12on 07-21-2018 Cobalamin (Vitamin B12) mass conc 433 pg/mL Normal 180-[address] [facility] Comment on above: Performed By: #### 1 [id number] #### RELL Send Outs Subsection [facility] [place] [address] BD Bone Density DEXAon 04-10 BD Bone Density DEXA Exam Date/Time: 04/10/2018 10:59 EST Reason for Exam: OSTEOPENIA Report STUDY: BD Bone Density DEXA; 04/10/2018 10:59 am INDICATION: OSTEOPENIA. Evaluate for osteopenia/osteoporosis, ACCESSION NUMBER(S): [id number] ORDERING CLINICIAN: Agustina Stacy FINDINGS: Standard measurements [...] Juan Luis Grimm MD Technologist: LIDIA Normal [facility] Lab Miscellaneouson 12-18-19 18 Status See Ref Lab Report [facility] Comment on above: Performed By: #### 1 [id number] #### [place] [address] Status See Ref Lab Report Normal [facility] Comment on above: Performed By: #### 1 [id number] #### RELL Send Outs Subsection [address] [place] [address] Status See Ref Lab Report Normal [facility] Comment on above: Performed By: #### 1 [id number] #### RELL Send Outs Subsection [address] [place] [address] DNA Ab (DS)on 12-11-2017 DNA Ab (DS) 1 International_Unit/mL Normal 0-[address] [facility] Comment on above: Result Comment: Nega tive <5 Equivocal 5 - 9 Positive >9 Performed At: [facility] [address] [id number] Carrol Calderon PhD Ph:[phone] Performed By: #### 1 [id number] #### RELL Send Outs Subsection [address] [place] [address] Lab Miscellaneouson 12-11-19 Test Name sjogrens [facility] Comment on above: Performed By: #### 1 [id number] #### RELL Send Outs Subsection [address] [place] [address] Test Name histone ab Normal [facility] Comment on above: Performed By: #### 1 [id number] #### RELL Send Outs Subsection [address] [place] [address] Test Name anit smooth ab [facility] Comment on above: Performed By: #### 1 [id number] #### RELL Send Outs Subsection [address] [place] [address] MA Mamm Screen w/CAD if perf ormed bilaton 10-23-2017 MA Mamm Screen w/CAD if performed bilat Exam Date/Time: 10/17/2017 15:00 EDT Reason for Exam: Screening Report STUDY: Digital mammography screening; 10/17/2017 3:00 pm ACCESSION NUMBER(S): [id number] ORDERING CLINICIAN: Agustina Stacy INDICATION: Screening. COMPARISON: [...] 2-Benign finding Recommendation: Normal interval follow-up Normal [facility] Vital Signs Date Time Vital Sign Value Performing Clinician Facility 01-27-2025 17:37-0400 Body height 165.1 cm Mireya Spears NYLON MACHINE OPERATOR-MACHINE ERECTOR Work Phone: [facility] 01-27-2025 17:37-0400 Body mass index (BMI) [Ratio] 24.63 kg/m2 Mireya Spears NYLON MACHINE OPERATOR-MACHINE ERECTOR Work Phone: [facility] 01-27-2025 17:37-0400 Body temperature 97.59 [degF] Mireya Yostta NYLON MACHINE OPERATOR-MACHINE ERECTOR Work Phone: [facility] 01-27-2025 17:37-0400 Body weight 67.13 kg Mireya Spears NYLON MACHINE OPERATOR-MACHINE ERECTOR Work Phone: [facility] 01-27-2025 17:37-0400 Diastolic blood pressure 88 mm[Hg] Mireya Spears NYLON MACHINE OPERATOR-MACHINE ERECTOR Work Phone: [facility] 01-27-2025 17:37-0400 Heart rate 80 /min Mireya Spears NYLON MACHINE OPERATOR-MACHINE ERECTOR Work Phone: [facility] 01-27-2025 17:37-0400 SaO2% (BldA) [Mass fraction] 99 % Mireya Spears NYLON MACHINE OPERATOR-MACHINE ERECTOR Work Phone: [facility] 01-27-2025 17:37-0400 Systolic blood pressure 132 mm[Hg] Mireya Spears NYLON MACHINE OPERATOR-MACHINE ERECTOR Work Phone: [facility] 11-23-2024 15:52-0400 Body height 167.6 cm Dimple Coyner NYLON MACHINE OPERATOR.MACHINE ERECTOR Work Phone: [facility] 11-23-2024 15:52-0400 Body mass index (BMI) [Ratio] 23.4 kg/m2 Dimple Coyner NYLON MACHINE OPERATOR.MACHINE ERECTOR Work Phone: [facility] 11-23-2024 15:52-0400 Body weight 65.77 kg Dimple Coyner NYLON MACHINE OPERATOR.MACHINE ERECTOR Work Phone: [facility] 10-29-2024 15:14-0400 Body temperature 97.8 [degF] Dr. Slade Duarte MD Work Phone: [facility] 10-29-2024 15:14-0400 Body weight 68.[address] Slade Duarte MD Work Phone: [facility] 10-29-2024 15:14-0400 Diastolic blood pressure 84 mm[Hg] Dr. Slade Duarte MD Work Phone: [facility] 10-29-2024 15:14-0400 Heart rate 78 /min Dr. Slade Duarte MD Work Phone: [facility] 10-29-2024 15:14-0400 Respiratory rate 16 /min Dr. Slade Duarte MD Work Phone: [facility] 10-29-2024 15:14-0400 SaO2% (BldA) [Mass fraction] 100 % Dr. Slade Duarte MD Work Phone: [facility] 10-29-2024 15:14-0400 Systolic blood pressure 125 mm[Hg] Dr. Slade Duarte MD Work Phone: [facility] 09-13-2024 15:00-0400 Body height 166.37 cm [facility] 09-13-2024 15:00-0400 Body mass index (BMI) [Ratio] 25 kg/m2 [facility] 09-13-2024 15:00-0400 Body temperature 98.2 [degF] Out [facility] 09-13-2024 15:00-0400 Body weight 69.39 kg Out [facility] 09-13-2024 15:00-0400 Diastolic blood pressure 86 mm[Hg] Out [facility] 09-13-2024 15:00-0400 Heart rate 89 /min Out [facility] 09-13-2024 15:00-0400 Respiratory rate 15 /min Out [facility] 09-13-2024 15:00-0400 SaO2% (BldA) [Mass fraction] 96 % Out [facility] 09-13-2024 15:00-0400 Systolic blood pressure 134 mm[Hg] Out [facility] 08-27-2024 15:35-0400 Body height 165.1 cm Laisha Bhattiman NYLON MACHINE OPERATOR-MACHINE ERECTOR Work Phone: [facility] 08-27-2024 15:35-0400 Body mass index (BMI) [Ratio] 24.78 kg/m2 Laisha Yaya NYLON MACHINE OPERATOR-MACHINE ERECTOR Work Phone: [facility] 08-27-2024 15:35-0400 Body weight 67.54 kg Laisha Yaya NYLON MACHINE OPERATOR-MACHINE ERECTOR Work Phone: [facility] 08-27-2024 15:35-0400 Diastolic blood pressure 86 mm[Hg] Laisha Yaya NYLON MACHINE OPERATOR-MACHINE ERECTOR Work Phone: [facility] 08-27-2024 15:35-0400 Heart rate 80 /min Laisha Yaya NYLON MACHINE OPERATOR-MACHINE ERECTOR Work Phone: [facility] 08-27-2024 15:35-0400 Systolic blood pressure 125 mm[Hg] Laisha Yaya NYLON MACHINE OPERATOR-MACHINE ERECTOR Work Phone: [facility] 05-31-2024 13:50-0500 Body height 166.[address] Slade Duarte MD Work Phone: 0(619)[phone] [place] [address] 05-31-2024 13:50-0500 Body mass index (BMI) [Ratio] 24.2 kg/m2 Dr. Slade Duarte MD Work Phone: 6(682)169-491608 [place] [address] 05-31-2024 13:50-0500 Body temperature 97.7 [degF] Dr. Slade Duarte MD Work Phone: 1(147)899-523808 [place] [address] 05-31-2024 13:50-0500 Body weight 67.[address] Slade Duarte MD Work Phone: 6(303)580-139808 [place] [address] 05-31-2024 13:50-0500 Diastolic blood pressure 82 mm[Hg] Dr. Slade Duarte MD Work Phone: 7(238)237-296808 [place] [address] 05-31-2024 13:50-0500 Heart rate 61 /min Dr. Slade Duarte MD Work Phone: 7(785)058-315408 [place] [address] 05-31-2024 13:50-0500 Respiratory rate 15 /min Dr. Slade Duarte MD Work Phone: 4(618)173-691208 [place] [address] 05-31-2024 13:50-0500 SaO2% (BldA) [Mass fraction] 100 % Dr. Slade Duarte MD Work Phone: [facility] 05-31-2024 13:50-0500 Systolic blood pressure 128 mm[Hg] Dr. Slade Duarte MD Work Phone: [facility] 05-21-2024 16:33-0500 Body height 165.1 cm Laisha Javier NYLON MACHINE OPERATOR-MACHINE ERECTOR Work Phone: [facility] 05-21-2024 16:33-0500 Body mass index (BMI) [Ratio] 28.09 kg/m2 Laisha Javier NYLON MACHINE OPERATOR-MACHINE ERECTOR Work Phone: [facility] 05-21-2024 16:33-0500 Body weight 76.57 kg Laisha Javier NYLON MACHINE OPERATOR-MACHINE ERECTOR Work Phone: 7(133)950-[address] [place] [address] 05-21-2024 16:33-0500 Diastolic blood pressure 81 mm[Hg] Laisha Javier NYLON MACHINE OPERATOR-MACHINE ERECTOR Work Phone: [facility] 05-21-2024 16:33-0500 Heart rate 74 /min Laisha Bhattiman NYLON MACHINE OPERATOR-MACHINE ERECTOR Work Phone: [facility] 05-21-2024 16:33-0500 Systolic blood pressure 121 mm[Hg] Laisha Javier NYLON MACHINE OPERATOR-MACHINE ERECTOR Work Phone: [facility] 05-04-2024 10:15-0500 Body height 167.6 cm Dimple Coyner NYLON MACHINE OPERATOR.MACHINE ERECTOR Work Phone: [facility] 05-04-2024 10:15-0500 Body mass index (BMI) [Ratio] 23.73 kg/m2 Dimple Coyner NYLON MACHINE OPERATOR.MACHINE ERECTOR Work Phone: [facility] 05-04-2024 10:15-0500 Body weight 66.68 kg Dimple Coyner NYLON MACHINE OPERATOR.MACHINE ERECTOR Work Phone: [facility] 02-03-2024 13:46-0400 Diastolic blood pressure 74 mm[Hg] Hugo Thomae DO Work Phone: [facility] 02-03-2024 13:46-0400 Heart rate 72 /min Hugo Thomae DO Work Phone: [facility] 02-03-2024 13:46-0400 Respiratory rate 18 /min Hugo Thomae DO Work Phone: [facility] 02-03-2024 13:46-0400 SaO2% (BldA) [Mass fraction] 97 % Hugo Thomae DO Work Phone: [facility] 02-03-2024 13:46-0400 Systolic blood pressure 124 mm[Hg] Hugo Thomae DO Work Phone: [facility] 02-03-2024 12:02-0400 Body height 167.6 cm Hugo Thomae DO Work Phone: [facility] 02-03-2024 12:02-0400 Body mass index (BMI) [Ratio] 22.81 kg/m2 Hugo Redding DO Work Phone: [facility] 02-03-2024 12:02-0400 Body temperature 97.39 [degF] Hugo Redding DO Work Phone: [facility] 02-03-2024 12:02-0400 Body weight 64.1 kg Hugo Redding DO Work Phone: [facility] 12-26-2023 10:41-0400 Body height 165.1 cm Andre Chiu DO Work Phone: [facility] 12-26-2023 10:41-0400 Body mass index (BMI) [Ratio] 24.13 kg/m2 Andre Chiu DO Work Phone: [facility] 12-26-2023 10:41-0400 Body temperature 97.7 [degF] Andre Chiu DO Work Phone: [facility] 12-26-2023 10:41-0400 Body weight 65.77 kg Andre Chiu DO Work Phone: [facility] 12-26-2023 10:41-0400 Diastolic blood pressure 102 mm[Hg] Andre Chiu DO Work Phone: [facility] 12-26-2023 10:41-0400 Heart rate 78 /min Andre Chiu DO Work Phone: [facility] 12-26-2023 10:41-0400 Respiratory rate 17 /min Andre Chiu DO Work Phone: [facility] 12-26-2023 10:41-0400 SaO2% (BldA) [Mass fraction] 96 % Andre Chiu DO Work Phone: [facility] 12-26-2023 10:41-0400 Systolic blood pressure 152 mm[Hg] Andre Chiu DO Work Phone: [facility] 08-19-2023 13:37-0400 Body height 167.6 cm Dimple Mirandar NYLON MACHINE OPERATOR.MACHINE ERECTOR Work Phone: [facility] 08-19-2023 13:37-0400 Body weight 72.58 kg Dimple Mirandar NYLON MACHINE OPERATOR.MACHINE ERECTOR Work Phone: [facility] 07-24-2023 14:08-0400 Body temperature 98 [degF] [facility] 07-24-2023 14:08-0400 Body weight 75.52 kg [facility] 07-24-2023 14:08-0400 Diastolic blood pressure 99 mm[Hg] [facility] 07-24-2023 14:08-0400 Heart rate 93 /min [facility] 07-24-2023 14:08-0400 Respiratory rate 15 /min [facility] 07-24-2023 14:08-0400 SaO2% (BldA) [Mass fraction] 98 % [facility] 07-24-2023 14:08-0400 Systolic blood pressure 140 mm[Hg] [facility] 05-14-2022 14:57-0500 Body height 166.[address] Slade Duarte Work Phone: [facility] 05-14-2022 14:57-0500 Body mass index (BMI) [Ratio] 27.1 kg/m2 Dr. Slade Duarte Work Phone: [facility] 05-14-2022 14:57-0500 Body temperature 98 [degF] Dr. Slade Duarte Work Phone: [facility] 05-14-2022 14:57-0500 Body weight 75.[address] Slade Duarte Work Phone: [facility] 05-14-2022 14:57-0500 Diastolic blood pressure 80 mm[Hg] Dr. Slade Duarte Work Phone: [facility] 05-14-2022 14:57-0500 Heart rate 93 /min Dr. Slade Duarte Work Phone: [facility] 05-14-2022 14:57-0500 Respiratory rate 16 /min Dr. Slade Duarte Work Phone: [facility] 05-14-2022 14:57-0500 SaO2% (BldA) [Mass fraction] 97 % Dr. Slade Duarte Work Phone: [facility] 05-14-2022 14:57-0500 Systolic blood pressure 130 mm[Hg] Dr. Slade Duarte Work Phone: [facility] 12-24-2021 11:29-0400 Body height 166.[address] Slade Duarte Work Phone: [facility] Work Phone: 12-24-2021 11:29-0400 Body mass index (BMI) [Ratio] 26.9 kg/m2 Dr. Slade Duarte Work Phone: [facility] Work Phone: 12-24-2021 11:29-0400 Body temperature 98.2 [degF] Dr. Slade Duarte Work Phone: [facility] Work Phone: 12-24-2021 11:29-0400 Body weight 74.[address] Slade Duarte Work Phone: [facility] Work Phone: 12-24-2021 11:29-0400 Diastolic blood pressure 98 mm[Hg] Dr. Slade Duarte Work Phone: [facility] Work Phone: 12-24-2021 11:29-0400 Heart rate 96 /min Dr. Slade Duarte Work Phone: [facility] Work Phone: 12-24-2021 11:29-0400 Respiratory rate 16 /min Dr. Slade Duarte Work Phone: [facility] Work Phone: 12-24-2021 11:29-0400 SaO2% (BldA) [Mass fraction] 98 % Dr. Slade Duarte Work Phone: [facility] Work Phone: 12-24-2021 11:29-0400 Systolic blood pressure 144 mm[Hg] Dr. Slade Duarte Work Phone: [facility] Work Phone: 09-20-2021 15:56-0400 Body temperature 98.2 [degF] Dr. Slade Duarte Work Phone: [facility] Work Phone: 09-20-2021 15:56-0400 Diastolic blood pressure 84 mm[Hg] Dr. Slade Duarte Work Phone: [facility] Work Phone: 09-20-2021 15:56-0400 Heart rate 88 /min Dr. Slade Duarte Work Phone: [facility] Work Phone: 09-20-2021 15:56-0400 Respiratory rate 16 /min Dr. Slade Duarte Work Phone: [facility] Work Phone: 09-20-2021 15:56-0400 SaO2% (BldA) [Mass fraction] 96 % Dr. Slade Duarte Work Phone: [facility] Work Phone: 09-20-2021 15:56-0400 Systolic blood pressure 120 mm[Hg] Dr. Slade Duarte Work Phone: [facility] Work Phone: 09-20-2021 15:56-0400 Body height 166.[address] Slade Duarte Work Phone: [facility] Work Phone: 09-20-2021 15:56-0400 Body temperature 98.2 [degF] Dr. Slade Duarte Work Phone: [facility] Work Phone: 09-20-2021 15:56-0400 Diastolic blood pressure 84 mm[Hg] Dr. Slade Duarte Work Phone: [facility] Work Phone: 09-20-2021 15:56-0400 Heart rate 88 /min Dr. Slade Duarte Work Phone: [facility] Work Phone: 09-20-2021 15:56-0400 Respiratory rate 16 /min Dr. Slade Duarte Work Phone: [facility] Work Phone: 09-20-2021 15:56-0400 SaO2% (BldA) [Mass fraction] 96 % Dr. Slade Duarte Work Phone: [facility] Work Phone: 09-20-2021 15:56-0400 Systolic blood pressure 120 mm[Hg] Dr. Slade Duarte Work Phone: [facility] Work Phone: 06-25-2021 14:31-0500 Diastolic blood pressure 88 mm[Hg] Dr. Slade Duarte Work Phone: [facility] Work Phone: 06-25-2021 14:31-0500 Heart rate 76 /min Dr. Slade Duarte Work Phone: [facility] Work Phone: 06-25-2021 14:31-0500 SaO2% (BldA) [Mass fraction] 99 % Dr. Slade Duarte Work Phone: [facility] Work Phone: 06-25-2021 14:31-0500 Systolic blood pressure 136 mm[Hg] Dr. Slade Duarte Work Phone: [facility] Work Phone: Encounters Encounter Date Encounter Type Care Provider Facility Start: 02-21-2025 End: 02-21-2025 Subsequent hospital visit by physician Riley [id number] Silvanao [facility] Comment on above: Screening mammogram, encounter for Start: 02-21-2025 End: 02-21-2025 ambulatory [facility] Start: 01-27-2025 End: 01-27-2025 Office outpatient visit 15 minutes Mireya Spears NYLON MACHINE OPERATOR-MACHINE ERECTOR Work Phone: [facility] Comment on above: Thrush (Primary Dx); Acute pharyngitis, unspecified etiology Start: 01-27-2025 End: 01-28-2025 ambulatory [facility] Start: 01-15-2025 End: 01-15-2025 [facility] Work Phone: -Laboratory Start: 01-15-2025 End: 01-15-2025 Patient encounter procedure Dorothy DE LA GARZA -Laboratory Work Phone: Start: 01-15-2025 End: 01-15-2025 ambulatory Dorothy Echavarria Facility:[facility] Start: 11-23-2024 End: 11-23-2024 Office outpatient visit 25 minutes Dimple Salazar NYLON MACHINE OPERATOR.MACHINE ERECTOR Work Phone: Urology Comment on above: OAB (overactive blad nael) (Primary Dx); Multiple sclerosis (HCC) Start: 11-23-2024 End: 11-23-2024 ambulatory DIMPLE SALAZAR Facility:[facility] Start: 10-29-2024 End: 10-29-2024 Patient encounter procedure Dorothy DE LA GARZA -[facility] Work Phone: Start: 10-29-2024 End: 10-29-[address] Slade Duarte MD Work Phone: [facility] Work Phone: Start: 10-29-2024 End: 10-29-2024 ambulatory Dorothy Echavarria Facility:[facility] Start: 09-27-2024 Non-patient / Non-visit Dr. Ed bond MD -[facility] Start: 09-27-2024 End: 09-27-[address] Slade Duarte MD Work Phone: [facility] Work Phone: Start: 09-27-2024 End: 09-27-[address] Slade Duarte MD -Cardiovascular Services Work Phone: Start: 09-27-2024 End: 09-27-2024 ambulatory Slade Duarte Facility:[facility] Start: 09-13-2024 End: 09-13-2024 ambulatory [facility] Work Phone: Start: 09-13-2024 End: 09-13-2024 Patient encounter procedure Slade Duarte MD -Laboratory, [facility] Start: 09-13-2024 End: 09-13-[address] Slade Duarte MD -[facility] Work Phone: Start: 09-13-2024 End: 09-13-2024 ambulatory Slade Duarte Facility:[facility] Start: 09-13-2024 End: 09-13-2024 ambulatory Laisha [facility] Facility:[facility] Start: 08-30-2024 End: 08-30-2024 [facility] Comment on above: Syncope, unspecified syncope type Start: 08-30-2024 End: 08-30-2024 ambulatory [facility] Start: 08-27-2024 End: 08-27-2024 ambulatory [facility] Start: 08-27-2024 End: 08-27-2024 Office outpatient visit 15 minutes Laisha Bhattiman NYLON MACHINE OPERATOR-MACHINE ERECTOR Work Phone: [facility] Comment on above: Hyponatremia (Primar y Dx); Hemiparesis, left (Multi); Syncope, unspecified syncope type Start: 07-02-2024 End: 07-02-[address] Slade Duarte MD Work Phone: [facility] Work Phone: Start: 07-02-2024 End: 07-02-[address] Slade Duarte MD -[facility] Work Phone: Start: 07-02-2024 End: 07-02-2024 ambulatory [facility] Facility:[facility] Start: 05-31-2024 End: 05-31-[address] Slade Duarte MD -[facility] Work Phone: Start: 05-31-2024 End: 05-31-2024 ambulatory Out of Town Doctor Facility:[facility] Start: 05-21-2024 End: 05-21-2024 Office outpatient new 30 minutes [facility] NYLON MACHINE OPERATOR-MACHINE ERECTOR Work Phone: [facility] Comment on above: MS (multiple scleros is) (Multi) (Primary Dx); Persistent depressive disorder; Osteopenia, unspecified location Start: 05-21-2024 End: 05-21-2024 ambulatory [facility] Ambulatory Start: 05-04-2024 End: 05-04-2024 ambulatory DIMPLE SALAZAR Facility:[facility] Start: 05-04-2024 End: 05-04-2024 Office outpatient visit 25 minutes Dimple Salazar NYLON MACHINE OPERATOR.MACHINE ERECTOR Work Phone: Urology Comment on above: OAB (overactive blad nael) (Primary Dx); Screening for genitourinary condition; Multiple sclerosis (HCC); Urge incontinence Start: 04-19-2024 End: 04-19-[address] Slade Duarte MD -[facility] Work Phone: Start: 04-19-2024 End: 04-19-2024 ambulatory [facility] Facility:[facility] Start: 04-15-2024 End: 04-15-2024 ambulatory Yolanda Shaw RN [facility] Clinical Communication Start: 04-15-2024 End: 04-15-2024 Patient encounter procedure Yolanda Shaw RN [facility] Clinical Communication Start: 04-12-2024 End: 04-12-2024 ambulatory Sonal Anne RN [facility] Clinical Communication Start: 04-12-2024 End: 04-12-2024 Patient encounter procedure Sonal Anne RN [facility] Communication Start: 03-29-2024 End: 03-29-2024 Telephone encounter Agustina Stacy MD Work Phone: [facility] Comment on above: Lab Orders Start: 03-27-2024 End: 03-27-2024 ambulatory [facility] Start: 03-22-2024 End: 03-22-2024 Telephone encounter Dimple Salazar NYLON MACHINE OPERATOR.MACHINE ERECTOR Work Phone: Urology Comment on above: Follow up appt Start: 02-17-2024 End: 02-17-2024 Subsequent hospital visit by physician Riley Mckeon [facility] Comment on above: Age-related osteopor osis without current pathological fracture Encounter for screen ing mammogram for malignant neoplasm of breast Start: 02-03-2024 End: 02-03-2024 Subsequent hospital visit by physician Hugo Redding DO Work Phone: [facility] Comment on above: Colon cancer screeni ng; History of colon polyps Start: 01-20-2024 End: 01-20-2024 Refill Dimple Salazar NYLON MACHINE OPERATOR.MACHINE ERECTOR Work Phone: Urology Start: 12-26-2023 End: 12-26-2023 Emergency department patient visit Andre Chiu DO Work Phone: [facility] Comment on above: TMJ dysfunction (Shy natan Dx) Start: 09-30-2023 End: 09-30-2023 ambulatory [facility] Start: 08-19-2023 End: 08-19-2023 Patient encounter procedure Dimple Salazar APRN.MACHINE ERECTOR Work Phone: Urology Comment on above: OAB (overactive blad nael) (Primary Dx); Urge incontinence; Multiple sclerosis (HCC) Start: 08-07-2023 End: 08-07-2023 [facility] Start: 08-07-2023 End: 08-07-2023 Patient encounter procedure AGUSTINA STACY [facility] Work Phone: Start: 07-31-2023 Telephone encounter Agustina lamar MD Work Phone: NOC Comment on above: Follow Up (F/U - att empt made. No answer) Follow Up (All Clear ) Start: 07-26-2023 End: 07-28-2023 [facility] Start: 07-26-2023 End: 07-26-2023 Emergency department [facility] Start: 07-24-2023 End: 07-24-2023 [facility] Work Phone: Start: 05-24-2023 End: 05-24-2023 ambulatory [facility] Start: 02-24-2023 End: 02-24-2023 ambulatory [facility] Work Phone: Start: 02-24-2023 End: 02-24-2023 Patient encounter procedure [facility] Work Phone: Start: 01-06-2023 Patient encounter procedure Tyra Wallace Work Phone: [facility] Work Phone: Start: 08-20-[address] Slade Duarte Facility:[id number] Start: 08-20-2022 Patient encounter procedure Tyra Wallace Work Phone: [facility] Work Phone: Start: 08-13-[address] [id number] Start: 08-13-2022 Patient encounter procedure Tyra Tenzin Perciak Work Phone: [facility] Work Phone: Start: 08-06-2022 Patient encounter procedure Tyra Tenzin Perciak Work Phone: [facility] Work Phone: Start: 08-06-[address] [facility] Start: 07-30-[address] [facility] Start: 07-30-2022 Patient encounter procedure Tyra M Perciak Work Phone: [facility] Work Phone: Start: 07-23-2022 Patient encounter procedure Tyra Tenzin Perciak Work Phone: [facility] Work Phone: Start: 07-23-2022 PTFUADULT4, Provider : Monik Mar, Status: Pen, Time: 4:00 PM Tyra M Perciak Work Phone: [facility] Work Phone: Start: 07-23-[address] [facility] Start: 07-18-2022 Patient encounter procedure Tyra Tenzin Perciak Work Phone: [facility] Work Phone: Start: 07-18-[address] [facility] Start: 07-01-2022 Patient encounter procedure Tyra M Perciak Work Phone: [facility] Work Phone: Start: 06-25-2022 Patient encounter procedure Tyra Dave Madison Work Phone: [facility] Work Phone: Start: 06-25-[address] Slade Duarte Facility:[id number] Start: 06-22-2022 End: 06-22-[address] Slade Duarte Work Phone: [facility] Work Phone: Start: 06-22-2022 End: 06-22-[address] Slade Duarte Work Phone: [facility] Start: 05-14-2022 End: 05-14-[address] Slade Duarte Work Phone: [facility] Start: 05-01-[address] Slade Duarte Facility:[id number] Start: 04-24-2022 Patient encounter procedure Tyra Dave Caitlinsakina Work Phone: [facility] Work Phone: Start: 04-17-2022 Patient encounter procedure Tyra Dave Caitlinsakina Work Phone: [facility] Work Phone: Start: 04-17-[address] Slade Duarte Facility:9862 Start: 03-28-[address] Salde Duarte Facility:9862 Start: 03-28-2022 Patient encounter procedure Tyra M Caitliniak Work Phone: [facility] Work Phone: Start: 03-21-[address] Slade Duarte Facility:9862 Start: 03-11-2022 Patient encounter procedure Tyra Tenzin Murphyk Work Phone: [facility] Work Phone: Start: 03-05-[address] Slade Duarte Facility:9862 Start: 03-05-2022 Patient encounter procedure Tyra Tenzin Perciak Work Phone: [facility] Work Phone: Start: 02-27-[address] Slade Duarte Facility:9862 Start: 02-27-2022 Patient encounter procedure Tyra Tenzin Tuckeriak Work Phone: [facility] Work Phone: Start: 02-19-[address] Slade Duarte Facility:9862 Start: 02-19-2022 Patient encounter procedure Tyra Tenzin Perciak Work Phone: [facility] Work Phone: Start: 02-14-2022 Patient encounter procedure Tyra Tenzin Tuckeriak Work Phone: [facility] Work Phone: Start: 02-14-[address] Slade Duarte Facility:9862 Start: 02-01-2022 Patient encounter procedure Tyrayahaira Wallace Work Phone: [facility] Work Phone: Start: 02-01-[address] Slade Duarte Facility:[id number] Start: 01-22-[address] Slade Duarte Facility:[id number] Start: 01-22-2022 Patient encounter procedure Tyra Tenzin Tuckeriak Work Phone: [facility] Work Phone: Start: 01-17-2022 End: 01-17-2022 ambulatory [facility] Work Phone: Start: 01-17-2022 End: 01-17-2022 Patient encounter procedure [facility] Start: 01-04-2022 Patient encounter procedure [facility] Wallace [facility] Work Phone: Start: 01-04-[address] Slade Duarte Facility:[id number] Start: 12-24-2021 End: 12-24-[address] Slade Duarte Work Phone: [facility] Start: 12-24-2021 End: 12-24-[address] Slade Duarte Work Phone: [facility] Start: 12-10-[address] Agustina Stacy [facility] lity:[id number] Start: 10-11-2021 End: 10-11-[address] Slade Duarte Work Phone: [facility] Start: 09-20-2021 End: 09-20-[address] Slade Duarte Work Phone: [facility] Start: 09-20-2021 End: 09-20-[address] Slade Duarte Work Phone: [facility] Start: 08-23-2021 End: 08-23-[address] Slade Duarte Work Phone: [facility] Start: 06-25-2021 End: 06-25-[address] Slade Duarte Work Phone: [facility] Procedures Date Procedure Procedure Detail Performing Clinician Start: 01-27-2025 Iadna streptococcus group a amplified probe tq Mireya Spears NYLON MACHINE OPERATOR-MACHINE ERECTOR Work Phone: Start: 01-15-2025 LAM measurement Laisha franklin SPLICING SUPERVISOR-C Work Phone: Comment on above: Performed at: [address] [id number] Director: Kvng Branham PhD, Phone: [phone] Start: 01-15-2025 Antibody to centrome re measurement Laisha Javier SPLICING SUPERVISOR-C Work Phone: Comment on above: Test not performed Start: 01-15-2025 Antibody to extracta ble nuclear antigen measurement Laisha Javier SPLICING SUPERVISOR-C Work Phone: Comment on above: Test not performed Start: 01-15-2025 Antibody to JOSE-1 measurement Laisha Javier SPLICING SUPERVISOR-C Work Phone: Comment on above: Test not performed Start: 01-15-2025 Antibody to lupus La protein measurement Laisha Javier SPLICING SUPERVISOR-C Work Phone: Comment on above: Test not performed Start: 01-15-2025 Antibody to SS-A measurement Laisha Javier SPLICING SUPERVISOR-C Work Phone: Comment on above: Test not performed Start: 01-15-2025 Autoantibody measurement Laisha Javier SPLICING SUPERVISOR-C Work Phone: Comment on above: Test not performed Start: 01-15-2025 Laboratory data interpretation Laisha Javier SPLICING SUPERVISOR-C Work Phone: Comment on above: No lupus anticoagula nt was detected. Start: 01-15-2025 Lupus anticoagulant assay, platelet neutralization method Laisha Javier SPLICING SUPERVISOR-C Work Phone: Start: 01-15-2025 Lupus anticoagulant screening test Laisha Javier SPLICING SUPERVISOR-C Work Phone: Start: 01-15-2025 Prothrombin time Laisha nayak SPLICING SUPERVISOR-C Work Phone: Start: 01-15-2025 APPLICATIONS PROJECT MANAGER antibody measurement Laisha Javier SPLICING SUPERVISOR-C Work Phone: Comment on above: Test not performed Start: 01-15-2025 Serum IgM anticardio lipin measurement Laisha Javier SPLICING SUPERVISOR-C Work Phone: Comment on above: Negative: <13 Indete rminate: 13 - 20 Low-Med Positive: >20 - 80 High Positive: >80 Start: 10-29-2024 Antibody to centrome re measurement [...] DARA on 11/01/24:1409 AMENDED REPORT 11/01/24 1409 ANTICHROMATIN previously reported as: Test not performed [...] Care Physician Start: 10-29-2024 Prothrombin time No [facility] Care Physician Start: 10-29-2024 APPLICATIONS PROJECT MANAGER antibody measurement No Primary Care Physician Comment on above: Previous reported re sult: TNP AIEdited by: DARA on 11/01/24:1409 AMENDED REPORT 11/01/24 1409 APPLICATIONS PROJECT MANAGER Ab previously reported as: Test not performed [...] stick/tabl et rgnt auto w/o microscopy Dimple Salazar NYLON MACHINE OPERATOR.MACHINE ERECTOR Work Phone: Start: 04-19-2024 MRI of brain with contrast Dr. Slade Duarte MD Work Phone: Start: 02-17-2024 End: 02-17-2024 Mammography Agustina Stacy MD Work Phone: Start: 02-03-2024 Colsc flx w/rmvl of tumor polyp lesion snare tq Hugo Redding DO Work Phone: Start: 02-03-2024 Level iv surg pathol ogy gross&microscopic exam Hugo Redding DO Work Phone: Start: 02-03-2024 PULSE OXIMETRY, SPOT Da julieta Redding DO Work Phone: Start: 02-03-2024 Colonoscopy Hugo quiroz DO Work Phone: Start: 08-19-2023 Urnls dip stick/tabl et rgnt auto w/o microscopy Dimple Salazar NYLON MACHINE OPERATOR.MACHINE ERECTOR Work Phone: Start: 08-07-2023 MRI of brain with contrast AGUSTINA STACY Start: 05-24-2023 CBC W Auto Different ial panel - Blood AGUSTINA TAWANNA Start: 05-24-2023 Comprehensive metabo lic 2000 panel - Serum or Plasma AGUSTINA TAWANNA Start: 05-24-2023 Ferritin [Mass/volum e] in Serum or Plasma AGUSTINA TAWANNA Start: 05-24-2023 Iron [Mass/volume] i n Serum or Plasma AGUSTINA STACY Start: 02-24-2023 CT of thoracic spine with contrast Start: 01-20-2023 Mammography Andre quiñones DO Work Phone: Start: 01-17-2022 MRI of cervical spin e with contrast AGUSTINA STACY Start: 01-17-2022 MRI of brain with contrast AGUSTINA TAWANNA Start: 02-20-2021 Colonoscopy Agustina lamar MD Work [...] or Population) (1 - 1-dose 75+ series) [facility] Start: 10-21-2038 RSV Immunization for Adults (1 - 1-dose 75+ series) RSV Immunization for Adults (1 - 1-dose 75+ series) [facility] Start: 10-21-2038 RSV Vaccine (1 - 1-d ose 75+ series) RSV Vaccine (1 - 1-dose 75+ series) [facility] Start: 10-31-2027 Diabetes Screening Diabetes Screenin g [facility] Start: 03-27-2027 Diabetes Screening Diabetes Screenin g [facility] Start: 02-02-2027 Screening for malign ant neoplasm of colon [facility] Start: 07-27-2026 Diabetes Screening Diabetes Screenin g [facility] Start: 02-16-2026 Screening for osteoporosis Bone Density Scan [facility] Start: 02-07-2026 Lipid panel [facility] Start: 11-25-2025 End: 11-25-2025 Follow-up encounter 11/25/2025 10:00 AM EDT [facility]rology [address] [facility] [address] [place] [address] Dimple Salazar, NYLON MACHINE OPERATOR.MACHINE ERECTOR [address] [place] [address] 1 yr follow up Urology Comment on above: 1 yr follow up Start: 03-30-2025 End: 03-30-2025 Patient encounter procedure 03/30/2025 10:30 AM EST Office Visit [facility] [address] [place] [id number] Laisha Javier, NYLON MACHINE OPERATOR-MACHINE ERECTOR [address] [facility] [address] [place] [address] [facility] Start: 03-27-2025 Diabetes mellitus screening Diabetes Screening [facility] Start: 03-02-2025 End: 03-02-2025 Patient encounter procedure [facility] Start: 02-21-2025 End: 02-21-2025 Patient encounter procedure 02/21/2025 10:45 AM EDT Appointment [facility] [address] [place] [phone] [facility] Start: 02-16-2025 Screening for malign ant neoplasm of breast [facility] Start: 01-20-2025 Screening for osteoporosis Bone Density Scan [facility] Start: 01-10-2025 COVID-19 Vaccine ( season) COVID-19 Vaccine ( season) [facility] Start: 01-10-2025 Influenza vaccination U [facility] Start: 11-02-2024 End: 11-02-2024 Patient encounter procedure 11/02/2024 4:00 PM EDT Office Visit Urology [address] [address] Dimple Salazar APRN.MACHINE ERECTOR [address] [place] [address] for OAB Urology Comment on above: for OAB Start: 10-29-2024 Cardiolipin IgA and IgG and IgM panel - Serum [facility] Start: 10-29-2024 Complement C3 [Mass/volume] in Serum or Plasma [facility] Start: 10-29-2024 Complement C4 [Mass/volume] in Serum or Plasma [facility] Start: 10-29-2024 Complement total hemolytic CH50 [Units/volume] in Serum or Plasma [facility] Start: 10-29-2024 Lupus anticoagulant assay [facility] Start: 10-29-2024 Protein C [Units/vol ume] in Platelet poor plasma by Coagulation assay [facility] Start: 10-29-2024 Protein C actual/nor mal in Platelet poor plasma by Chromogenic method [facility] Start: 10-29-2024 Protein S assay [facility] Start: 10-29-2024 Protein S function estimate [facility] Start: 09-13-2024 Measurement of substance [facility] Start: 08-27-2024 End: 08-27-2025 Basic metabolic 2000 panel - Serum or Plasma Basic Metabolic Panel Lab Routine Hyponatremia Expected: 08/27/2024 (Approximate), Expires: 08/27/2025 [facility] Service Area Work Phone: Comment on above: Expected: 08/27/2024 (Approximate), Expires: 08/27/2025 Start: 08-27-2024 End: 08-27-2025 Holter monitor study Holter or Event [employer] [facility] Services Routine Syncope, unspecified syncope type Expected: 08/27/2024, Expires: 08/27/2025 [facility] Work Phone: Comment on above: Expected: 08/27/2024 , Expires: 08/27/2025 Start: 04-14-2024 End: 04-14-2024 Patient encounter procedure 04/14/2024 1:20 PM EST Office Visit Urology [address] [address] Dimple Salazar, NYLON MACHINE OPERATOR.MACHINE ERECTOR [address] [place], [place] [id number] follow up medication, female exam Urology Comment on above: follow up medication , female exam Start: 02-21-2024 Screening for malign ant neoplasm of colon [facility] Start: 02-17-2024 End: 02-17-2024 Patient encounter procedure [facility] Start: 01-23-2024 End: 01-23-2024 Patient encounter procedure [facility] Start: 01-21-2024 Screening for malign ant neoplasm of breast [facility] Start: 01-11-2024 Covid-19 Vaccine ( season) Covid-19 Vaccine ( season) [facility] Start: 01-11-2024 Covid-19 Vaccine ( season) Covid-19 Vaccine ( season) [facility] Start: 01-11-2024 Influenza vaccination [facility] Start: 01-02-2024 End: 01-02-2024 Patient encounter procedure 01/02/2024 8:40 AM EDT Appointment [facility] [address] [place] [phone] Hugo Redding, DO [address] [facility] [place] [address] [facility] Start: 2023 RSV patient s and/or patients aged 60+ years (1 - 1-dose 60+ series) RSV patients and/or patients aged 60+ years (1 - 1-dose 60+ series) [facility] Start: 2023 RSV Vaccine (1 - 1-d ose 60+ series) RSV Vaccine (1 - 1-dose 60+ series) [facility] Start: 2023 RSV Vaccine (1 - Ris k 60-74 years 1-dose series) RSV Vaccine (1 - Risk 60-74 years 1-dose series) [facility] Start: 01-10-2023 Covid-19 Vaccine ( season) Covid-19 Vaccine ( season) [facility] Start: 01-10-2023 Influenza vaccination Influenza Vacc ine (#1) [facility] Start: 09-03-2022 MILI, Provider : Monik Mar, Status: Pen, Time: 4:00 PM MILI, Provider: Monik Mar, Status: Pen, Time: 4:00 PM [facility] Work Phone: Start: 08-27-2022 OTRECVINCENT, Provider : Maranda Genao, Status: Pen, Time: 3:15 PM OTRECHECHIDI, Provider: Maranda Genao, Status: Pen, Time: 3:15 PM [facility] Work Phone: Start: 08-20-2022 [email or web address], Provider : Monik Mar, Status: Pen, Time: 4:00 PM PTFUADULT4, Provider: Monik Mar, Status: Pen, Time: 4:00 PM [facility] Work Phone: Start: 08-13-2022 OTFUADULT4, Provider : Maranda Genao, Status: Pen, Time: 3:15 PM OTFUADULT4, Provider: Maranda Genao, Status: Pen, Time: 3:15 PM [facility] Work Phone: Start: 08-06-2022 PTFUADULT4, Provider : Monik Mar, Status: Pen, Time: 4:00 PM PTFUADULT4, Provider: Monik Mar, Status: Pen, Time: 4:00 PM [facility] Work Phone: Start: 07-30-2022 OTFUADULT4, Provider : Maranda Genao, Status: Pen, Time: 3:15 PM OTFUADULT4, Provider: Maranda Genao, Status: Pen, Time: 3:15 PM [facility] Work Phone: Start: 07-23-2022 PTFUADULT4, Provider : Monik Mar, Status: Pen, Time: 4:00 PM PTFUADULT4, Provider: Monik Mar, Status: Pen, Time: 4:00 PM [facility] Work Phone: Start: 07-18-2022 [id number], Provider : Maranda Genao, Status: Pen, Time: 3:30 PM [id number], Provider: Maranda Genao, Status: Pen, Time: 3:30 PM [facility] Work Phone: Start: 07-09-2022 PTFUADULT4, Provider : Monik Mar, Status: Pen, Time: 4:00 PM PTFUADULT4, Provider: Monik Mar, Status: Pen, Time: 4:00 PM [facility] Work Phone: Start: 07-07-2022 DTaP/Tdap/Td Vaccine s (2 - Td or Tdap) DTaP/Tdap/Td Vaccines (2 - Td or Tdap) [facility] Start: 07-07-2022 Urine microalbumin profile DTaP,Tdap,Td Vaccine (2 - Td or Tdap) [facility] Start: 05-09-2022 [email or web address], Provider : Maranda Genao, Status: Pen, Time: 4:30 PM OTFUADULT4, Provider: Maranda Genao, Status: Pen, Time: 4:30 PM [facility] Work [facility]: Start: 05-09-2022 PTFUADULT4, Provider : Aracelis Mg, Status: Pen, Time: 3:30 PM PTFUADULT4, Provider: Aracelis Mg, Status: Pen, Time: 3:30 PM [facility] Work [facility]: Start: 05-01-2022 PTFUADULT4, Provider : Kady Ventura, Status: Pen, Time: 4:15 PM PTFUADULT4, Provider: Kady Ventura, Status: Pen, Time: 4:15 PM [facility] Work [facility]: Start: 05-01-2022 OTFUADULT4, Provider : Johanny Ahn, Status: Pen, Time: 3:30 PM OTFUADULT4, Provider: Johanny Ahn, Status: Pen, Time: 3:30 PM [facility] Work Phone: Start: 04-24-2022 OTFUADULT4, Provider : Johanny Ahn, Status: Pen, Time: 3:15 PM OTFUADULT4, Provider: Johanny hAn, Status: Pen, Time: 3:15 PM [facility] Work [facility]: Start: 04-24-2022 PTFUADULT4, Provider : Yi Mcdaniel, Status: Pen, Time: 2:30 PM PTFUADULT4, Provider: Yi Mcdaniel, Status: Pen, Time: 2:30 PM [facility] Work Phone: Start: 03-28-2022 OTRECVINCENT, Provider : Maranda Genao, Status: Pen, Time: 4:30 PM OTRECVINCENT, Provider: Maranda Genao, Status: Pen, Time: 4:30 PM [facility] Work [facility]: Start: 03-28-2022 PTRECHECKA, Provider : Monik Mar, Status: Pen, Time: 3:45 PM PTRECHECKYahaira, Provider: Monik Mar, Status: Pen, Time: 3:45 PM [facility] Work Phone: Start: 03-21-2022 OTFUADULT4, Provider : Maranda Genao, Status: Pen, Time: 4:00 PM OTFUADULT4, Provider: Maranda Genao, Status: Pen, Time: 4:00 PM [facility] Work Phone: Start: 03-21-2022 PTFUADULT4, Provider : Monik Mar, Status: Pen, Time: 3:15 PM PTFUADULT4, Provider: Monik Mar, Status: Pen, Time: 3:15 PM [facility] Work Phone: Start: 03-16-2022 Yearly Adult Physical Yearly Adult P [facility] Start: 03-15-2022 Screening for malign ant neoplasm of cervix [facility] Start: 03-11-2022 OTFUADULT4, Provider : Johanny Ahn, Status: Pen, Time: 5:00 PM OTFUADULT4, Provider: Johanny Ahn, Status: Pen, Time: 5:00 PM [facility] Work Phone: Start: 03-11-2022 PTRECHADDIONI, Provider : Monik Mar, Status: Pen, Time: 4:15 PM PTRECHADDIONI, Provider: Monik Mar, Status: Pen, Time: 4:15 PM [facility] Work Phone: Start: 03-07-2022 OTFUADULT4, Provider : Johanny Ahn, Status: Pen, Time: 5:00 PM OTFUADULT4, Provider: Johanny Ahn, Status: Pen, Time: 5:00 PM [facility] Work Phone: Start: 03-07-2022 PTRECHJERAD, Provider : Monik Mar, Status: Pen, Time: 4:15 PM PTRECHADUL, Provider: Monik Mar, Status: Pen, Time: 4:15 PM [facility] Work Phone: Start: 03-05-2022 OTFUADULT4, Provider : Maranda Genao, Status: Pen, Time: 5:15 PM OTFUADULT4, Provider: Maranda Genao, Status: Pen, Time: 5:15 PM [facility] Work Phone: Start: 03-05-2022 PTRECHADUL, Provider : Monik Mar, Status: Pen, Time: 4:15 PM PTRECHADUL, Provider: Monik Mar, Status: Pen, Time: 4:15 PM [facility] Work Phone: Start: 02-27-2022 PTFUADULT4, Provider : Charity Chapman, Status: Pen, Time: 5:00 PM PTFUADULT4, Provider: Charity Chapman, Status: Pen, Time: 5:00 PM [facility] Work Phone: Start: 02-27-2022 OTFUADULT4, Provider : Maranda Genao, Status: Pen, Time: 4:15 PM OTFUADULT4, Provider: Maranda Genao, Status: Pen, Time: 4:15 PM [facility] Work Phone: Start: 02-19-2022 OTEVALADUL, Provider : Maranda Genao, Status: Pen, Time: 5:15 PM OTEVALADUL, Provider: Maranda Genao, Status: Pen, Time: 5:15 PM [facility] Work Phone: Start: 02-19-2022 PTFUADULT4, Provider : Dorothy Aguayo, Status: Pen, Time: 4:30 PM PTFUADULT4, Provider: Dorothy Aguayo, Status: Pen, Time: 4:30 PM [facility] Work Phone: Start: 02-01-2022 PTRECHADUL, Provider : Monik Mar, Status: Pen, Time: 4:15 PM PTRECHADUL, Provider: Monik Mar, Status: Pen, Time: 4:[facility] Work Phone: Start: 01-29-2022 PTFUADULT4, Provider : Aracelis Mg, Status: Pen, Time: 4:15 PM PTFUADULT4, Provider: Aracelis Mg, Status: Pen, Time: 4:15 PM [facility] [place] Work Phone: Start: 01-25-2022 PTFUADULT4, Provider : Ratna Abel, Status: Pen, Time: 3:45 PM PTFUADULT4, Provider: Ratna Abel, Status: Pen, Time: 3:45 PM [facility] [place] Work Phone: Start: 01-22-2022 PTFUADULT4, Provider : Aracelis Mg, Status: Pen, Time: 4:15 PM PTFUADULT4, Provider: Aracelis Mg, Status: Pen, Time: 4:15 PM [facility] [place] Work Phone: Start: 01-17-2022 PTFUADULT4, Provider : Monik Mar, Status: Pen, Time: 4:00 PM PTFUADULT4, Provider: Monik Mar, Status: Pen, Time: 4:00 PM [facility] Work Phone: Start: 01-10-2022 PTFUADULT4, Provider : Helena Mills, Status: Pen, Time: 10:45 AM PTFUADULT4, Provider: Helena Mills, Status: Pen, Time: 10:45 AM [facility] Work Phone: Start: 12-24-2021 Patient referral [facility] Work Phone: Start: 10-21-2013 Pneumococcal vaccination Pneum ococcal Vaccine (1 of 1 - PCV) [facility] Start: 10-21-2013 Pneumococcal Vaccine : 50+ (1 of 1 - PCV) Pneumococcal Vaccine: 50+ (1 of 1 - PCV) [facility] Start: 10-21-2013 Shingrix Vaccine (1 of 2) Shingrix Vaccine (1 of 2) [facility] Start: 10-21-2013 Zoster Vaccines (1 of 2) Zoste r Vaccines (1 of 2) [facility] Start: 05-10-2009 Screening for malign ant neoplasm of breast Mammogram [facility] Start: 10-21-2008 Screening for malign ant neoplasm of colon [facility] Start: 2003 Screening for malign ant neoplasm of breast Mammogram [facility] Start: 10-21-1993 Screening for malign ant neoplasm of cervix [facility] Start: 10-21-1984 Screening for malign ant neoplasm of cervix [facility] Start: 10-21-1981 Diabetes mellitus screening Diabetes Screening [facility] Start: 10-21-1981 Hepatitis C screening Hepatitis C [facility] Start: 10-21-1981 HIV screening HIV Screening [facility] Start: 1975 Depression Monitoring Depression Mon [facility] Start: 10-21-1969 Pneumococcal vaccination Pneum ococcal Vaccine (1 of 2 - PCV) [facility] Start: 10-21-1964 MMR Vaccines (1 of 1 - Standard series) MMR Vaccines (1 of 1 - Standard series) [facility] Start: 1963 HIV screening HIV Screening [facility] Start: 1963 Screening for malign ant neoplasm of colon [facility] Start: 1963 Yearly Adult Physical Yearly Adult P hysical [facility] BLADDER SCAN BLADDER SCAN Pro cedures Routine OAB (overactive bladder) Ordered: 11/23/2024 [facility] Work Phone: Comment on above: Ordered: 11/23/2024 CBC W Auto Different ial panel - Blood [facility] Comprehensive metabo lic 2000 panel - Serum or Plasma [facility] End: 02-21-2025 DBT Breast - bilateral [facility] Service Area Work Phone: Comment on above: Once for 1 Occurrenc es starting 02/21/2025 until 02/21/2025 End: 02-17-2024 DXA Skeletal system Views for bone density [facility] Service Area Work Phone: Comment on above: Once for 1 Occurrenc es starting 02/17/2024 until 02/17/2024 Erythrocyte sedimentation rate [facility] End: 02-03-2024 Glucose [Mass/volume] in Serum or Plasma Glucose Lab Routine Once (Lab) for 1 Occurrences starting 02/03/2024 until 02/03/2024 [facility] Work Phone: Comment on above: Once (Lab) for 1 Occ urrences starting 02/03/2024 until 02/03/2024 End: 08-30-2024 Holter monitor study Health system Area Work Phone: Comment on above: Once for 1 Occurrenc es starting 08/30/2024 until 08/30/2024 Measurement of substance [facility] Measurement of substance [facility] End: 02-03-2024 Moderate Sedation Moderate Sedation Procedures Routine Once for 1 Occurrences starting 02/03/2024 until 02/03/2024 [facility] Service Area Work Phone: Comment on above: Once for 1 Occurrenc es starting 02/03/2024 until 02/03/2024 MR Brain WO and W contrast [facility] Work Phone: MR Cervical spine WO and W contrast [facility] Work Phone: MR Lumbar spine WO a nd W contrast [facility] MRI of thoracic spin e with contrast [facility] Patient referral [facility] Work Phone: Surgical pathology study [facility] Work Phone: Comment on above: Release Upon Renettain g for 1 Occurrences starting 02/03/2024 US.doppler Lower extremity vessels [facility] Immunizations Immunization Date Immunization Notes Care Provider [facility] 03-25-2018 influenza virus vacc ine, unspecified formulation Agustina Stacy MD Work Phone: [facility] 07-22-2013 influenza virus vacc ine, unspecified formulation Agustina Stacy MD Work Phone: [facility] 07-07-2012 tetanus toxoid, redu shahrzad diphtheria toxoid, and acellular pertussis vaccine, adsorbed Agustina Stacy MD Work Phone: [facility] 05-10-2011 influenza virus vacc ine, unspecified formulation Agustina Stacy MD Work Phone: [facility] Payers Date Payer Category Payer Self-pay [id number] [id number] [id number] 2022 [place] [employer] BLUE CARD PPO OOS [id number] 2022 [place] [facility] Care [facility] [id number] 2022 Unknown 2022 Unknown [id number] 2020 Unknown [id number] 1963 Unknown [id number] 2.16.840.1.702712.3.579.2. 1068 1963 Unknown [id number] 2.16.840.1.658757.3.579.2. 1068 1963 Unknown [id number] 2..840.1.061542.3.579.2. 1068 1963 Unknown [id number] 2..840.1.074564.3.579.2. 1068 1963 Unknown [id number] 2.840.1.814785.3.579.2. 1068 1963 Unknown [id number] 2..840.1.535232.3.579.2. 1068 1963 Unknown [id number] 2.16.840.1.653200.3.579.2. 1068 1963 Unknown [id number] 2.16.840.1.573852.3.579.2. 1068 1963 Unknown [id number] 2.16.840.1.868130.3.579.2. 1068 1963 Unknown [id number] 2.16.840.1.503178.3.579.2. 1068 1963 Unknown [id number] 2.16.840.1.307172.3.579.2. 1068 1963 Unknown [id number] 2.16.840.1.183157.3.579.2. 1068 1963 Unknown [id number] 2.16.840.1.808091.3.579.2. 9 1963 Unknown [id number] 2.16.840.1.579813.3.579.2. 1068 1963 Unknown [id number] 2.16.840.1.808396.3.579.2. 1068 1963 Unknown [id number] 2.16.840.1.090768.3.579.2. 1068 1963 Unknown [id number] 2.16.840.1.543653.3.579.2. 1068 1963 Unknown [id number] 2.16.840.1.402917.3.579.2. 1068 1963 Unknown [id number] 2.16.840.1.700230.3.579.2. 1068 1963 Unknown [id number] 2.16.840.1.505267.3.579.2. 1244 1963 Unknown [id number] 2.16.840.1.807459.3.579.2. 1244 1963 Unknown [id number] 2.16.840.1.568932.3.579.2. 1244 1963 Unknown [id number] 2.16.840.1.577711.3.579.2. 1242 1963 Unknown [id number] 2.16.840.1.150375.3.579.2. 1242 1963 Unknown [id number] 2.16.840.1.443489.3.579.2. 1242 1963 Unknown [id number] 2.16.840.1.153868.3.579.2. 1243 1963 Unknown [id number] 2.16.840.1.490722.3.579.2. 1244 Unknown [id number] 2.16.840.1.736874.3.579.2. 462 Unknown [id number] 2.16.840.1.281721.3.579.2. 462 Unknown [id number] 2.16.840.1.505349.3.579.2. 462 Unknown [id number] 2.16.840.1.105873.3.579.2. 462 Unknown [id number] 2.16.840.1.490736.3.579.2. 462 Unknown [id number] 2.16.840.1.390966.3.579.2. 462 Unknown [id number] 2.16.840.1.209858.3.579.2. 462 Unknown [id number] 2.16.840.1.547359.3.579.2. 462 Unknown [id number] 2.16840.1.775563.3.579.2. 462 Unknown [id number] 2.16840.1.167284.3.579.2. 462 Social History Date Type Detail Facility Start: 09-20-2021 End: 07-24-2023 Tobacco smoking status [facility] Unknown if ever smoked [facility] Start: 1965 Sex Assigned At Female [facility] Start: 07-26-2023 End: 05-21-2024 Drinks beer Drinks beer [facility] Start: 05-12-1979 Tobacco smoking status NDIS Smokes tobacco daily [facility] Start: 05-12-1979 End: 05-12-1992 History of tobacco use Cigarette Smoker [facility] Start: 07-26-2023 End: 05-21-2024 Tobacco use and exposure Smokeless tobacco non-user [facility] Start: 07-27-2023 End: 01-29-2024 Alcohol intake Current drinker of alcohol (finding) [facility] Start: 07-28-2023 End: 05-21-2024 [facility] [employer] [facility] Has the [employer] or [employer] threatened to shut off services in your home in past 12Mo No [facility] Start: 04-06-2022 Adult Depression Screening Assessment 0 [facility] (I/We) worried whechapo er (my/our) food would run out before (I/we) got money to buy more. Never true [facility] Start: 07-26-2023 Tobacco Comment 1 cig per week - recreational [facility] Start: 03-15-2021 Alcohol Comment once a night [facility] Start: 1965 Sex Assigned At Choose [facility] Start: 10-07-2018 Gender identity Identifies as female gender (finding) [facility] Start: 10-07-2018 Sexual orientation Heterosexual (finding) [facility] Start: 01-29-2024 Tobacco smoking status NDIS Never smoked tobacco [facility] Start: 12-16-2023 End: 08-30-2024 Exposure to SARS-CoV-2 (event) Not sure [facility] Start: 08-04-2023 End: 07-15-2024 Sex Female (finding) [facility] Start: 05-04-2024 End: 05-21-2024 Tobacco smoking status NHIS Ex-smoker [facility] Start: 05-12-1979 End: 05-12-1992 History of tobacco use Current smoker [facility] Start: 05-21-2024 End: 02-21-2025 Alcoholic beverage intake Ex-drinker (finding) [facility] Work Phone: Functional Status Date Assessment Result Facility 02-21-2025 Functional status [facility] 02-21-2025 [facility] Work Phone: 01-27-2025 Functional status 132/88 025 5:37 PM EDT Minna Steiner MA 132/88 [facility] 01-27-2025 Vital signs 80 01/27/2025 5: 37 PM EDT Minna Steiner MA [facility] Work Phone: 05-21-2024 Patient Health Quest ionnaire 2 item (PHQ-2) [Reported] [facility] Work Phone: 02-03-2024 [facility] Work Phone: 02-03-2024 Functional status [facility] Work Phone: 07-28-2023 Are you deaf, or do you have serious difficulty hearing No 07/28/2023 2:37 PM EDT Mariela Barriga, GEOVANNA No [facility] 07-28-2023 Are you blind, or do you have serious difficulty seeing, even when wearing glasses No 07/28/2023 2:37 PM EDT Mariela Barriga, GEOVANNA No [facility] 07-28-2023 Do you have serious difficulty walking or climbing stairs No 07/28/2023 2:37 PM EDT Mariela Barriga, GEOVANNA No [facility] 07-28-2023 Do you have difficul ty dressing or bathing No 07/28/2023 2:37 PM EDT Mariela Barriga, GEOVANNA No [facility] 07-28-2023 Because of a physica l, mental, or emotional condition, do you have difficulty doing errands alone such as visiting a physician's office or shopping No 07/28/2023 2:37 PM EDT Mariela Barriga, GEOVANNA [facility] Work Phone: Mental Status Date Assessment Result Facility 02-03-2024 Cognitive function finding Negat varinder 02/03/2024 1:46 PM EDT Luna Epstein RN [facility] 07-28-2023 Because of a physica l, mental, or emotional condition, do you have serious difficulty concentrating, remembering, or making decisions No 07/28/2023 2:37 PM EDT Mariela Barriga, GEOVANNA No [facility] Clinical Notes 01-04-2022 to 01-27-2025 ALYSE Hutchinson - 01/27/2025 5:35 PM Dimple Schmidt APRN.CNP - 11/23/2024 4:04 PM Sherron Carney LPN - 11/23/2024 3:58 PM EDT Note Date & Type Note Facility 01-27-2025 History of Present illness Narrative [facility] ALYSE Hutchinson Visit Note - 01/27/2025 6:10 PM This note was generated with voice recognition software and may contain errors including spelling, grammar, syntax, and misrecognization of what was dictated. Patient: Socorro Grace, , 59 y.o., female PCP: ALYSE Leblanc --- ALLERGIES: Allergies[1] CURRENT MEDICATIONS: Current Outpatient Medications Medication Instructions alendronate (FOSAMAX) 70 mg, oral, Every 7 days amantadine (SYMMETREL) 100 mg, 3 times daily BIFIDOBACTERIUM ANIMALIS ORAL Take by mouth. calcium carbonate (CALCIUM 600 ORAL) 1 each, Daily clotrimazole (MYCELEX) 10 mg, oral, 5 times daily, Let dissolve slowly in mouth. cyanocobalamin (VITAMIN B-12) 1,000 mcg, 3 times weekly cyclobenzaprine (FLEXERIL) 10 mg, Nightly ergocalciferol (VITAMIN D-2) 1.25 mg, Weekly escitalopram (LEXAPRO) 5 mg, oral, Daily FERROUS SULFATE ORAL 400 mg, Daily Flonase Allergy Relief 50 mcg/actuation nasal spray 2 sprays, Every 12 hours fluorometholone (FML) 0.1 % ophthalmic suspension 1 drop, 2 times daily gabapentin (NEURONTIN) 400 mg, 3 times daily hydrOXYzine HCL (Atarax) 10 mg tablet 1 tablet, Daily PRN magnesium oxide (Mag-Ox) 400 mg (241.3 mg magnesium) tablet 1 tablet, Daily (0630) multivitamin tablet 1 tablet, Daily omega 7-rhr-pky-fish oil (Fish OiL) 1,000 mg (120 mg-180 mg) capsule 1 capsule, Every 24 hours orphenadrine (NORFLEX) 100 mg, Daily OXcarbazepine (TRILEPTAL) 300 mg, 2 times daily teriflunomide (Aubagio) 14 mg tablet tablet 1 tablet, Daily trospium (SANCTURA) 20 mg, 2 times daily ZINC ORAL Take by mouth. --- PAST MEDICAL HX: Problem List[2] SURGICAL HX: Surgical History[3] FAMILY HX: No pertinent history. SOCIAL HX: reports that she has quit smoking. Her smoking use included cigarettes. She has never used smokeless tobacco. --- CHIEF COMPLAINT: Chief Complaint Patient presents with Thrush Dry itchy cough, slight sore throat. Pt thinks she has thrush. HISTORY OF PRESENT ILLNESS: The history was obtained from patient. Socorro is a 59 y.o. female, who presents with a chief complaint of possible thrush sxs that started 2-3 weeks ago - reports has weird sensation in her throat. Reports she initially though her symptoms were related to allergies (is not currently on any allergy medication aside from steroid nasal sprays, as they had been ineffective in the past, but reports received allergy shots in the past). However, sxs seem to have persisted without much change since onset. In addition to the sensation in her throat (which she reports is also somewhat sore), has had a mild, dry cough that she attributes to the itching in her throat, intermittent headaches, fatigue, mild nasal congestion, and slight subjective fevers. Has been eating/drinking normally, but her throat, back of her tongue, and inner cheeks feel sore. No nausea/vomiting, constipation/diarrhea, or other symptoms. Has been taking OTC nasal spray and saline nasal spray without much relief; no other OTC medications or conservative measures have been tried. No recent antibiotic or steroid use but does have history of immunosuppression, as well as MS. No known ill contacts or recent illness. Follows regularly with PCP. Reports she has had thrush in the past and her symptoms were minimal. REVIEW OF SYSTEMS: 10 systems reviewed negative with exception of history of present illness as listed above. TODAY'S VITALS: BP 132/88 Pulse 80 Temp 36.4 C (97.6 F) Ht 1.651 m (5' 5) Wt 67.1 kg (148 lb) SpO2 99% BMI 24.63 kg/m PHYSICAL EXAMINATION: General: Pleasant female, alert and oriented, in no acute distress. Non-toxic appearing. Eyes: Eyes non-icteric; no conjunctival erythema or exudate to eyes noted. HENT: No notable nasal congestion. Mucous membranes moist. Several small, creamy-white, adherent raised patches noted to pharyngeal arch (on very mildly erythematous base); no lesions noted elsewhere in mouth or on tongue. Lips/perioral area unremarkable. Neck: Supple, non-tender, no palpable lymphadenopathy. Respiratory: Respirations are easy and non-labored, with normal rate for age. Symmetrical chest wall expansion; no retractions or use of accessory muscles. Lungs are clear to auscultation - no wheezing, rhonchi, or rales. Cardiovascular: Normal rate, Regular rhythm. Normal S1S2. No m/r/g. Musculoskeletal: Grossly normal for age. Integumentary: [place], warm, dry, and intact. Normal skin turgor; no rashes appreciated to exposed skin. Skin well-perfused. Neurologic: Alert, Oriented, Normal sensory, Normal motor function. Cognition and Speech: Oriented, Speech clear and coherent. Psychiatric: Cooperative, Appropriate mood & affect. --- Medical Decision Making LABORATORY or RADIOLOGICAL IMAGING ORDERS/RESULTS: Strep A PCR: negative IMPRESSION/PLAN: Course: Worsening; stable 1. Thrush (Primary) 2. Acute pharyngitis, unspecified etiology - clotrimazole (Mycelex) 10 mg daron; Take 1 tablet (10 mg) by mouth 5 times a day for 14 days. Let dissolve slowly in mouth. Dispense: 70 Daron; Refill: 0 - strep A PCR test Sxs consistent with oral thrush, although reviewed other potential etiologies. Strep test done per pt's request - was negative. Discussed diagnosis and expectations for resolution of sxs- will start oral Clotrimazole today, and advised should complete full course of medication, for full resolution of infection. Discussed instructions for medication, possible adverse reactions of treatment, as well as s/sxs of worsening problem (fever, decreased energy level or lethargy, decreased appetite/increased pain, worsening patches in mouth, etc). Reviewed strategies to help with prevention/resolution of infection, including sterilizing toothbrush/mouth guard, maintaining good oral hygiene, and following healthy diet. Should follow up with PCP if worsening or if no improvement despite treatment. Mireya Spears APRN-MACHINE ERECTOR Advanced Practice Provider [facility] [1] Allergies Allergen Reactions Penicillins Rash [2] Patient Active Problem List Diagnosis Hemiparesis, left (Multi) [3] Past Surgical History: Procedure Laterality Date CHOLECYSTECTOMY 1999 COLONOSCOPY 02/25/2018 Colonoscopy (Fiberoptic) EXTERNAL EAR SURGERY HYSTERECTOMY 02/25/2018 Hysterectomy documented in this encounter [facility] Work Phone: 11-23-2024 Note HNO ID: [id number] Author: DIMPLE SALAZAR APRN.DAE Service: ? Author [...] Take 5,000 Units by mouth once daily. L.acid-B.animalis,bifid, (FORTIFY OPTIMA PROBIOTIC) 50 billion cell cpDR [...] with certainty. MS (multiple sclerosis) ([facility]) 2006 Dr. Buckley Osteopenia hip, spine. [...] Colon Cancer Maternal (more content not included)... [facility] 11-23-2024 History of Present illness Narrative Socorro [...] with certainty. MS (multiple sclerosis) ([facility]) 2006 Dr. Buckley Osteopenia hip, spine. [...] up in 12 months virtually Dimple Salazar APRN.MACHINE ERECTOR Bladder scan obtained 7 ml of urine documented in this encounter [facility] 11-23-2024 Note HNO ID: [id number] Author: SHERRON TRUJILLO LPN Service: ? Author Type: LICENSED NURSE Type: Progress Notes Filed: 11/23/2024 16:18 Note Text: Bladder scan obtained 7 ml of urine [facility] 10-29-2024 Evaluation note Diagnosis Onset Date Resolution 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 acute October 29 3:00pm Venous insufficiency (chronic) (peripheral) chronic October 3:00pm [facility] Work Phone: 1(239) 221-948005-05-2025 Evaluation note* Diagnosis Onset Date Resolution Status Admit Date Edema acute September 13, 2024 2:59pm Fatigue acute September 13, 2024 2:59pm History of varicose veins acute September 13, 2024 2:59pm Left-sided trigeminal neuralgia acut e September 13, 2024 2:59pm Multiple sclerosis acute September 2:59pm History of vitamin D deficiency reso lved September 13, 2024 2:59pm [facility] Work Phone: 1(800) 619-260505-05-2025 Evaluation note* Diagnosis Onset Date Resolution Status Admit Date Edema acute September 13, 2024 2:59pm Fatigue acute September 13, 2024 2:59pm History of varicose veins acute September 13, 2024 2:59pm Left-sided trigeminal neuralgia acut e September 13, 2024 2:59pm Multiple sclerosis acute September 2:59pm History of vitamin D deficiency reso lved September 13, 2024 2:59pm 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 acute October 29, 2024 3:00pm Venous insufficiency (chroni c) (peripheral) chronic October 29, 2024 3:00pm [facility] Work Phone: 1(433) 967-206404-18-2025 History of Present illness Narrative* Laisha Javier APRN-DAE - 08/27/2024 3:30 PM EDT Subjective Patient [...] -Consider holter monitor if BMP is normal [place] on right foot -She would like to try to remove it herself -if no success recommend podiatry referral for removal Hyponatremia -BMP ordered -consider sodium bicarbonate tablets if it is still low -Consider BMP every 4 weeks for monitoring documented in this [facility] Work Phone: 1(273) 973-202801-20-2025 Evaluation note* Diagnosis Onset Date Resolution Status Admit Date Edema acute May 31, 2024 1:49pm Fatigue acute May 31, 2024 1:49pm Left-sided trigeminal neuralgia acute May 31 1:49pm Multiple sclerosis acute 2024 1:49pm History of vitamin D deficiency resolved May 31 1:49pm [facility] Work Phone: 1(649) 496-198201-20-2025 Evaluation note* Diagnosis Onset Date Resolution Status [...] deficiency resolved September 13, 2024 2: 59pm [facility] Work Phone: 1(562) 912-203901-10-2025 History of Present illness Narrative* Laisha Javier, MIGUELINA-MACHINE ERECTOR - 05/21/2024 4:30 PM EST Subjective Patient ID: Socorro Grace is a 58 y.o. female who presents for Establish Care (Est as new. No complaints). HPI Here today to establish care as a new patient. Pt was being seen by a physician in [place], she would like to move closer to [...] this month MS -Following with neurology in [place] -She is releasing her records to us so we can keep updated Osteopenia -She is taking the fosamax every 7 days OAB/Incontinence -Follows with urology -Related to her MS documented in this [facility] Work Phone: 1(157) 767-494812-24-2024 NoteHNO ID: [id number] Author: DIMPLE SALAZAR APRN.MACHINE ERECTOR Service: ? Author Type: Nurse Practitioner Type: [...] with certainty. MS (multiple sclerosis) ([facility]) 2006 Dr. Buckley Osteopenia hip, spine. [...] PSYCH: Negative for slee (more content not included)...[facility]12-24-2024 History of Present illness Narrative* Dimple Salazar, NYLON MACHINE OPERATOR.[facility] - 05/04/2024 10:08 AM EST Socorro Grace [...] with certainty. MS (multiple sclerosis) ([facility]) 2006 Dr. Buckley Osteopenia hip, spine. [...] follow up in 6 months Dimple Salazar APRN.DAE [facility] Note * Telephone Encounter - Yolanda Shaw RN - 04/15/2024 1:23 PM EST S: Pt calling [facility] re: appt B: Today A: Pt states [...] Protocols used: Information Only Call - No [id number] [id number] Miscellaneous Notes* Telephone Encounter - Yolanda Shaw RN - 04/15/2024 1:23 PM EST S: Pt calling [facility] re: appt B: Today A: Pt states [...] Protocols used: Information Only Call - No [id number] documented in this [facility]12-02-2024 Telephone encounter Note* Telephone Encounter - Teri [...] NON-URGENT Protocols used: PCP Call - No [id number] [facility] [id number] Miscellaneous Notes* Telephone Encounter - Teri Newton [...] NON-URGENT Protocols used: PCP Call - No [id number] documented in [facility]12-02-2024 Telephone encounter Note* Telephone Encounter - Sonal Anne RN - 04/12/2024 1:16 PM EST S: Patient spoke with [facility] nurse regarding body aches, fever, cold symptoms [...] will likely have to to to the [facility] clinic R: Patient understands care advice. Patient instructed to call back with new or worsening symptoms.Message sent to the provider's office for review and recommendations HP Reason for Disposition [1] HIGH RISK patient AND [2] influenza is widespread in the community AND [3] ONE OR MORE respiratory symptoms: cough, sore throat, runny or stuffy nose Protocols used: Coronavirus (COVID-19) Diagnosed or [id number] [facility] [id number] Miscellaneous Notes* Telephone Encounter - Sonal Anne RN - 04/12/2024 1:16 PM EST S: Patient spoke with [facility] nurse regarding body aches, fever, cold [...] will likely have to to to the [facility] clinic R: Patient understands care advice. Patient instructed to call back with new or worsening symptoms.Message sent to the provider's office for review and recommendations HP Reason for Disposition [1] HIGH RISK patient AND [2] influenza is widespread in the community AND [3] ONE OR MORE respiratory symptoms: cough, sore throat, runny or stuffy nose Protocols used: Coronavirus (COVID-19) Diagnosed or [id number]-HT documented in this [facility]11-18-2024 Telephone encounter Note* Telephone Encounter - Lauren Bustillo - 03/29/2024 8:35 AM EST Name of caller: Socorro Contact phone number: [phone] Relationship to Patient: patient Provider: Dr. Stacy [...] would like these lab orders faxed to #[phone] attention lab [facility]. Patient is requesting a call back to be informed and states that a voicemail can be left. Please advise. Best time of day caller can be reached: Any Patient advised that office/PCP has 24-48 business hours to return their call: No [facility] [id number] Miscellaneous Notes* Telephone Encounter - Lauren Bustillo - 03/29/2024 8:35 AM EST Name of caller: Socorro Contact phone number: [phone] Relationship to Patient: patient Provider: Dr. Stacy [...] would like these lab orders faxed to #[phone] attention lab [place]. Patient is requesting a call back to be informed and states that a voicemail can be left. Please advise. Best time of day caller can be reached: Any Patient advised that office/PCP has 24-48 business hours to return their call: No documented in this encounterSOur [facility] Mercy [id number] Telephone encounter Note* Telephone Encounter - Kavya [...] muscle checking. Appt scheduled for 04-14-2024. Closing. [facility]11-11-2024 Miscellaneous Notes* Telephone Encounter - Kavya [...] scheduled for 04-14-2024. Closing. [facility] Hospital Discharge instructions* Discharge Instructions* Luna [...] ofhaving your procedure, call the [facility] to be advised whether a visit to [...] [employer] Signature Date documented in this [facility] Work Phone: 1(213) 864-230309-24-2024 History and physical note* Hugo Redding DO - 02/03/2024 12:40 PM EDT [...] Relevant Orders Colonoscopy Screening; High Risk Patient GRANTS DIRECTOR/Current Medications: (Not in a hospital admission) Current [...] by mouth early in the morning.. omega 9-abj-trd-fish oil (Fish OiL) 1,000 mg (120 mg-180 [...] Ringer's infusion 20 mL/hr intravenous Continuous DO Hugo Sargent DO [facility] Work Phone: [phone]) 943-122509-24-2024 History and physical note* Hugo Redding DO - 02/03/2024 12:40 PM EDT [...] Relevant Orders Colonoscopy Screening; High Risk Patient GRANTS DIRECTOR/Current Medications: (Not in a hospital admission) Current [...] by mouth early in the morning.. omega 5-hjl-nww-fish oil (Fish OiL) 1,000 mg (120 mg-180 [...] Ringer's infusion 20 mL/hr intravenous Continuous DO Hugo Sargent DO [facility] Work Phone: 1(509) 601-919309-24-2024 Nurse Note* Jluis Silveira RN - 02/03/2024 12:33 PM EDT It was a pleasure taking care of you today! -Paul S [facility] Work Phone: 1(388) 770-680009-24-2024 Nurse Note* Jluis Silveira RN - 02/03/2024 12:33 PM EDT It was a pleasure taking care of you today! -Paul S [facility] Work Phone: 1(434) 624-204409-10-2024 Telephone encounter Note* Telephone Encounter - Vanessa Suarez - 01/20/2024 10:02 AM EDT Patient phones requesting refills as follows: Requested Prescriptions Pending Prescriptions Disp Refills trospium (SANCTURA) 20 mg tablet 60 tablet 3 Sig: Take 1 tablet by mouth two times a day. [facility] [address] [place] [address] Patient can be reached at [phone] [facility]09-10-2024 Miscellaneous Notes* Telephone Encounter - Vanessa Suarez - 01/20/2024 10:02 AM EDT Patient phones requesting refills as follows: Requested Prescriptions Pending Prescriptions Disp Refills trospium (SANCTURA) 20 mg tablet 60 tablet 3 Sig: Take 1 tablet by mouth two times a day. [facility] [address] [place], [place] [id number] Patient can be reached at [phone] documented in this encounterDel[facility]04-[facility]-2024 Instructions* Patient Instructions* Dimple Salazar APRN.MACHINE ERECTOR - 08/19/2023 2:25 PM EDT 3 complete day voiding diary start trospium 20 mg twice daily documented in this encounterDel[facility]04-09-2024 History of Present illness Narrative* Dimple Salazar APRN.DAE - 08/19/2023 2:04 PM EDT Socorro Grace [...] with certainty. MS (multiple sclerosis) ([facility]) [address] Dr. Buckley Osteopenia hip, spine. [...] follow up in 6 weeks. Dimple Salazar APRN.DAE documented in this encounterDel[facility]04-09-2024 Nurse Note* Pennie Guerrero MA - 08/19/2023 1:39 PM EDT Post void bladder scan completed. 0 ml residual remaining. Results reported to Dimple Salazar CNP documented in this encounterDelaware [facility] Hospital03-21-2024 Miscellaneous Notes* Telephone Encounter - Joaquim Zimmerman RN - 07/31/2023 9:55 AM EDT PATIENT INFORMATION Record ID: [id number] Patient Name: [facility]: [facility] [place]: [facility] Attending: Mariusz [address] Jr Center: [facility] Medicine INSTRUCTIONS MA to remind patient of next upcoming appointment date, time, location All Clear All Clear SURVEY INFORMATION Medical/Nurse Stitcher Around: Joaquim Zimmerman 1. Your discharge instructions are [...] symptoms? (Standard Question) No documented in this encounterDelaware [facility] Hospital03-18-2024 NoteHNO ID: [id number] Author: MAVIS STEINER RN Service: Care Management Author Type: Registered Nurse Type: Care Mgt Initial Assessment Filed: 07/28/2023 08:48 Note Text: CARE MANAGEMENT: ASSESSMENT AND DISCHARGE PLAN SERVICE DATE: July 28, 2023 SERVICE TIME: 8:12 AM PCP: Agustina Stacy MD - Confirmed. Primary Contact: Extended Emergency Contact Information Primary Emergency Contact: Bernard Gracekeven Address: [address] [place] [address] Mobile Relation: Spouse Admission Status: Inpatient Insurance Provider: [employer] PPO OOS Discharge Planning requested by: Per Department Practice Potential Transition Plans Home Advance Directives Current Advance Directive: Health Care Power of Product Development Coordinator;Living Will In Chart: No Current Living Arrangements [...] Be able to go home, General wellness [place] of Choice Explained: [place] of Choice Given: No Reason Not Given: No placements necessary Are you interested in bedside delivery of your medications? No [facility] Discharge Planning Participant(s): Patient Patient/Family Comments: Caregiver [...] 28, 2023 TIME: 8:45 AM CONTACT #: [phone] [id number] NoteHNO ID: [id number] Author: SANTIAGO BOOKER MD Service: Hospital Medicine [...] Santiago Booker MD NIGHT AND WEEKEND COVERAGE: [employer]: Nights: [phone], please page [facility] Night coverage pager [phone]. Reason for Admission: Hyponatremia after starting DDAVP [...] causing the headache. She is excepted at [facility] and transferred to the medical floor and on arrival urine cultures obtained along with blood cultures and starting her on ceftriaxone. Studies are sent for [facility] and she is Placed on 1200 cc [...] proceed with reevaluation (more content not included)...[facility] [id number] History of Past illness Narrative* Problem Noted Date Diagnosed Date Resolved Date Hyponatremia 07/26/2023 07/27/2023 Colon cancer screening 10/21/201712/19 Overview: Added automatically from request for surgery [id number] Hormone replacement therapy 11/09/2013 12/19/2017 MS (multiple sclerosis) 05/12/200612/10 Tobacco abuse 12/19/2017 Overview: one cig/week. Tobacco abuse 01/02/2021 Overview: rarely documented as of this encounter (statuses as of 07/31/2023) [facility]03-16-2024 History of Past illness Narrative* Problem Noted Date Diagnosed Date Resolved Date Hyponatremia 07/26/2023 07/27/2023 Colon cancer screening 10/21/201712/19 Overview: Added automatically from request for surgery [id number] Hormone replacement therapy 11/09/2013 12/19/2017 MS (multiple sclerosis) 05/12/200612/10 Tobacco abuse 12/19/2017 Overview: one cig/week. Tobacco abuse 01/02/2021 Overview: rarely documented as of this encounter (statuses as of 08/20/2023) [facility]02-20-2023 NoteMessage SOCORRO GRACE was (D/C)- last seen: 04/17/23. Pt is d/c from therapy at this time and will require a new order/evaluation to continue. Signatures Electronically signed by : TANIA Gutierrez/Lesley; Jul 01 2022 8:08AM EST (Author) [id number] History of Present illness Narrative* Patient confirmed [...] both very weak. Pt recommended to utilize [employer] for a custom AFO and to obtain brace over the counter. PT plans to contact physician for script for AFO. Pt will benefit from skilled PT to addressLE strength and balance as well as learn to mobilize with AFO to improve gait mechanics and safety in the community. Pt with agreement and understanding. [facility] Work Phone: [phone] 189-742708-26-2022 History of Present illness Narrative* Patient confirmed name and date of this session. * Ms. Grace is progressing well through their POC addressing spasms of L hemibody d/t MS. Pt has attended 3 sessions since 01/04/22 with many cancelled appts which is a barrier to progress. The pt demonstrates and verbalizes improvements in UE strength and balance. She demos improved gait mechanics wi th AFO and was educated on benefits of using one however impairments in strength, balance, and gaitpersist d/t MSAbel Pt is going to call [...] you for this referral and please call [phone] with any questions or concerns. [facility] Work Phone: 1(307) 682-126208-26-2022 History of Present illness Narrative* Patient confirmed [...] you for this referral and please call [phone] with any questions or concerns. * She will be continuing with OT. * During STS pt demos R foot behind L therefore cues to put feet even which she demos greater difficulty with. Pt educated that when the L foot is even with R or further back it is causing it to work more. [facility] Work Phone: 1(706) 772-134508-26-2022 History of Present illness Narrative* Patient confirmed [...] strength to help with floor transfers. [facility] Work Phone: Evaluation noteNo assessment information available [facility] Work Phone: Evaluation note* Diagnosis Onset Date Resolution Status Multiple sclerosis noneactiv e Abnormality of gait and mobility acute Multiple sclerosis noneactiv e [facility] Work Phone: Evaluation note* Diagnosis Onset Date Resolution Status Abnormality of gait and mobility acute Multiple sclerosis noneactiv e [facility] Work Phone: Evaluation note* Diagnosis Onset Date Resolution Status Abnormality of gait and mobility chronic Contracture of ankle involving calcaneus chronic Contracture of muscle, left upper arm chronic History of vitamin D deficiency resolved Multiple sclerosis noneactiv e [facility] Work Phone: Evaluation note* Diagnosis Onset Date Resolution Status Multiple sclerosis noneactiv e [facility] Work Phone: Evaluation note* Diagnosis OAB (overactive bladder)- Primary Hypertonicity of bladder Urge incontinence Multiple sclerosis (HCC) Multiple sclerosis [facility] this encounter [facility]* Diagnosis OAB (overactive bladder) Hypertonicity of bladder Urge incontinence documented in this encounter [facility]* Diagnosis Age-related osteoporosis without current pathological fracture documented in this encounter [facility] Work Phone: Evaluation note* Diagnosis Encounter for screening mammogram for malignant neoplasm of breast documented in this encounter [facility] Work Phone: Evaluation note* Diagnosis TMJ dysfunction- Primary Unspecified temporomandibular joint disorders documented in this encounter [facility] Work Phone: Evaluation note* Diagnosis Colon cancer screening Special screening for malignant neoplasms, colon History of colon polyps documented in this encounter [facility] Work Phone: Evaluation note* Diagnosis OAB (overactive bladder)- Primary Hypertonicity of bladder Screening for genitourinary condition Screening for other and unspecified genitourinary condition Multiple sclerosis (HCC) Multiple sclerosis Urge incontinence [facility] encounter [facility]* Diagnosis MS (multiple sclerosis) (Multi)- Primary Multiple sclerosis Persistent depressive disorder Osteopenia, unspecified location documented in this encounter [facility] Work Phone: Evaluation note* Diagnosis Hyponatremia- Primary Hyposmolality and/or hyponatremia Hemiparesis, left (Multi) Unspecified hemiplegia affecting unspecified side Syncope, unspecified syncope type documented in this encounter [facility] Work Phone: Evaluation note* Diagnosis Syncope, unspecified syncope type documented in this encounter [facility] Work Phone: Evaluation note* Diagnosis OAB (overactive bladder)- Primary Hypertonicity of bladder Multiple sclerosis (HCC) Multiple sclerosis [facility] encounter [facility]* Diagnosis Thrush- Primary Candidiasis of mouth Acute pharyngitis, unspecified etiology documented in this encounter [facility] Work Phone: Evaluation note* Diagnosis Colon cancer screening Special screening for malignant neoplasms, colon History of colon polyps documented in this encounter [facility] Work Phone: Evaluation note* Diagnosis Screening mammogram, encounter for documented in this encounter [facility] Work Phone: History of Present illness Narrative* Ms. Grace arrives to outpatient PT with s/s consistent with c/o spasms of L hemibody d/t MS. Pt presents with the following impairments: impaired balance, impaired [...] you for this referral and please call [phone] with any questions or concerns. * Clinical Presentation: Stable and/or uncomplicated characteristics. * Level of Complexity: low * Problem List: activity limitations, ADLs/IADLs/self care skills, balance, decreased functional level, decreased knowledge of HEP, fall risk, flexibility, gait/locomotion, participation restrictions, strength and transfers. [facility] Work Phone: History of Present illness NarrativePatient was identified by name and date. MET performed to correct +L anterior rotation. Progressed core stability and LE PREs this session with c/o fatigue only. Instructed in self massage techniques with roller bar and thera cane and sheet given on pelvic floor and TrA sets. to cont at home.She voiced good under]standing. [facility] Work Phone: History of Present illness NarrativePatient confirmed name and date of this session. Patient demonstrates symmetry with pelvis symmetry check. Patient able to increase reps with min fatigue noted. Difficulty lifting L LE as high as R with SLR. Added some standing LE strengthening exercises to challenge balance and strength, fair tolerance. [facility] Work Phone: History of Present illness Narrative* Patient identified by name and * Patient tolerates treatment with mild difficulty. Demo's weakness in Bilat LE's but demo's weaknessin LLE compared to RLE. Demo's good tolerance to supine exercises and tolerates SLR in partial range. [facility] Work Phone: History of Present illness Narrative* [...] impaired motor function/control/tone and fall risk. [facility] Work Phone: History of Present illness NarrativePt [...] if they are extremely difficult. [facility] Work Phone: History of Present illness Narrative* SOCORRO GRACE was evaluated today for muscle weakness of LUE s/t multiple sclerosis . 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 [...] ROM/joint mobility, decreased strength and fall risk. [facility] Work Phone: History of Present illness Narrative* Patient confirmed name and date of this session. Gait belt throughout session. * Pt requires intermittent UE support during all activities d/t balance deficits. During squats and leg press pt tends to put more weight on RLE vs LLE despite VCs. STS with LLE further back than R to target L strengthening. [facility] Work Phone: History of Present illness NarrativePt demos significant difficulty with pegs this date, having to put them down muitpple times to adjsut in hand placement. Pt demos significant difficulty with HH activity this date, only stacking x2 blocks.[facility] Work Phone: History of Present illness NarrativePt reporting need for hot pack to increase muscle ROM prior to activity. Pt demos need for increased time for wooden peg placement. Pt demos need for activity modification with HH.[facility] Work Phone: History of Present illness Narrative* Patient confirmed name and date of this session. * Pt with extreme difficulty with TRX SL squats on LLE d/t weakness and balance- min A required whileperforming. She demos good eccentric control throughout. VCs to allow equal WBing with tall kneel hip ext, squat, and leg press as she tends to WB mainly on RLE. [facility] Work Phone: History of Present illness NarrativePt demos difficulty with light orange resistance this date but demos ability to complete HEP. Pt requires repositioning each time on SHR for fingers d/t curling with sup/pro.[facility] Work Phone: History of Present illness Narrative* Patient confirmed name and date of this session. * Focus of treatment today on Neuromuscular Re-education in the [facility] for balance, proprioception and gait training. Patient [...] direct supervision of Monik Mar PT. [facility] Work Phone: Hospital Discharge instructions* Attachments The following attachments cannot be sent through Care Everywhere. * Temporomandibular Joint (TMJ) Disorders Discharge Instructions (Korean) documented in this encounterUnOhio [facility] Work Phone: Rehrzn for referral (narrative)No reason for referral information availableWUpper Valley Medical Center Work Phone: Reason for visit Narrative* Initial Evaluation . Dx: G35, R26.9, M24.573. * Referred by: Gerald [facility] Work Phone: Reuynr for visit Narrative* Cardiac Stress Testing (Routine) - Pending Review Specialty Diagnoses / Procedures Referred By Darius rao Referred To Contact Cardiology Diagnoses Syncope, unspecified syncope type Procedures Holter or Event Internal Combustion Engine Subassembler Laisha Javier, NYLON MACHINE OPERATOR-MACHINE ERECTOR [address] [facility], [place] [address] Phone: tel: fax: Referral ID Status Reason Start Date Expiration Date V isits Requested Visits Authorized [id number] Pending Review 08/27/2024 08/27/2025 1 1 [facility] Work Phone: Rebuqb for visit Narrative* Auth/Cert (Routine) Specialty Diagnoses / Procedures Referred By Darius rao Referred To Contact Diagnoses Encounter for screening for malignant neoplasm of colon Personal history of colon polyps Procedures HI COLONOSCOPY FLX DX W/COLLJ SPEC WHEN PFRMD HI COLONOSCOPY W/BIOPSY SINGLE/MULTIPLE HI COLSC FLX W/REMOVAL LESION BY HOT BX FORCEPS HI COLSC FLX W/RMVL OF TUMOR POLYP LESION SNARE TQ [facility] [address] [place] [address] Phone: tel: [phone] fax: Referral ID Status Reason Start Date Expiration Date Visits Re quested Visits Authorized [id number] 1 1 [facility] Work Phone: Reason for visit Narrative* Imaging (Routine) - Authorized Specialty Diagnoses / Procedures Referred By Contac t Referred To Contact Radiology Diagnoses Screening mammogram, encounter for Procedures BI mammo bilateral screening tomosynthesis Laisha Javier, NYLON MACHINE OPERATOR-MACHINE ERECTOR [address] [facility], [address] [place] [address] Phone: tel: fax: Referral ID Status Reason Start Date Expiration Date Visits Requested Visits Authorized [id number] Authorized Perform Procedure 11/09/2024 11/09/2025 1 1 [facility] Work Phone: Summary Purpose Family History No [...] 2:59pm Personal history of other diseases of th e circulat September 27, 2024 1:54pm Reason [...] 2:59pm Personal history of other diseases of th e circulat September 27, 2024 1:54pm Concern [...] (chronic) (peripher al) October 29, 2024 3:00pm Chief Complaint Admit Date Concern of lack of circulation October 3:00pm EORDERS October 29, 2024 3:54 pm INT LAB ORDERS January 15, 2025 9:19am Reason for Visit Admit Date 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 Ju ne 2024 3:00pm Venous insufficiency (chronic) (peripher al) October 29, 2024 3:00pm Reason for Referral Specialty Diagnoses / Procedures Referred By Darius rao Referred To Contact Radiology Diagnoses Age-related osteoporosis without current pathological fracture Procedures XR DEXA bone density Agustina Stacy MD [address] [place] [address] Riley [id number] Dexa [address] [place] [address] Referral ID Status Reason Start Date Expiration Date Visits Requested Visits Authorized [id number] Pending Review Perform Procedure 09/04/2023 09/03/2024 1 1 Specialty Diagnoses / Procedures Referred By Darius rao Referred To Contact Radiology Diagnoses Encounter for screening mammogram for malignant neoplasm of breast Procedures BI mammo bilateral screening tomosynthesis Agustina Stacy MD [address] [place] [address] Referral ID Status Reason Start Date Expiration Date Visits Requested Visits Authorized [id number] Authorized Perform Procedure 09/04/2023 09/03/2024 1 1 Specialty Diagnoses / Procedures Referred By Contac t Referred To Contact Diagnoses TMJ dysfunction Andre Chiu, [address] [facility] [address] [place] [address] Referral ID Status Reason Start Date Expiration Date V isits Requested Visits Authorized [id number] Pending Review 12/26/2023 12/25/2024 1 1 Specialty Diagnoses / Procedures Referred By Contac t Referred To Contact Gastroenterology Diagnoses Colon cancer screening History of colon polyps Procedures Colonoscopy Screening; High Risk Patient HI COLONOSCOPY FLX DX W/COLLJ SPEC WHEN PFRMD HI COLON CA SCRN NOT HI RSK IND HI COLORECTAL SCRN; HI RISK IND HI COLONOSCOPY W/BIOPSY SINGLE/MULTIPLE HI COLSC FLX W/RMVL OF TUMOR POLYP LESION SNARE TQ HI COLSC FLX W/REMOVAL LESION BY HOT BX FORCEPS Hugo Redding, DO [address] [facility], [address] [place] [address] Referral ID Status Reason Start Date Expiration Date V isits Requested Visits Authorized [id number] Authorized 11/04/2023 11/03/2024 1 1 Additional Source Comments INFORMATION SOURCE (unrecogn ized section and content) DATE CREATED AUTHOR 10/04/2018 [facility] DATE CREATED AUTHOR AUTHOR'S ORGANIZ ATION 08/19/2019 [facility] DATE CREATED AUTHOR AUTHOR'S ORGANIZ ATION 05/10/2021 [facility] DATE CREATED AUTHOR AUTHOR'S ORGANIZ ATION 08/23/2022 [facility] DATE CREATED AUTHOR AUTHOR'S ORGANIZ ATION 01/18/2023 [facility] DATE CREATED AUTHOR AUTHOR'S ORGANIZ ATION 07/31/2023 [facility] DATE CREATED AUTHOR AUTHOR'S ORGANIZ ATION 12/29/2023 [facility] DATE CREATED AUTHOR AUTHOR'S ORGANIZ ATION 04/02/2024 [facility] DATE CREATED AUTHOR AUTHOR'S ORGANIZ ATION 04/13/2024 [facility] DATE CREATED AUTHOR AUTHOR'S ORGANIZ ATION 11/27/2024 [facility] DATE CREATED AUTHOR AUTHOR'S ORGANIZ ATION 02/15/2025 [facility] DATE CREATED AUTHOR AUTHOR'S ORGANIZ ATION 02/25/2025 [facility] DATE CREATED AUTHOR AUTHOR'S ORGANIZ ATION 03/11/2025 [facility] DATE CREATED AUTHOR AUTHOR'S ORGANIZ ATION 03/13/2025 [facility] Goals (unrecognized section and [...] Active TAWANNA BERRIOS Primary Care Provider Active [facility] Relationship Specialty Start Date End Date Agustina Stacy MD [address] [place] [address] PCP - General Family Medicine 07/01/17 Larissa Yang PA-C [address] [place] [address] Neurology 01/28/18 [facility] Relationship Specialty Start Date End Date Agustina Stacy MD [address] [place] [address] PCP - General Family Medicine 07/01/17 Larissa Yang PA-C [address] [place], [place] [id number] Neurology 01/28/18 Team Status: Active Member Role [...] of Town Doctor Primary Care Provider Active [facility] Relationship Specialty Start Date End Date Agustina Stacy MD [address] [place] [address] PCP - General Family Medicine 07/01/17 Larissa Yang PA-C [address] [place] [address] Neurology 01/28/18 [facility] Relationship Specialty Start Date End Date Agustina Stacy MD [address] [place] [address] PCP - General Family Medicine 07/01/17 Larissa Yang PA-C [address] [place] [address] Neurology 01/28/18 [facility] Relationship Specialty Start Date End Date Agustina Stacy MD [address] [place] [address] PCP - General Family Medicine 01/20/23 [facility] Relationship Specialty Start Date End Date Agustina Stacy MD [address] [place] [address] PCP - General Family Medicine 01/20/23 [facility] Relationship Specialty Start Date End Date Agustina Stacy MD [address] [place] [address] PCP - General Family Medicine 07/01/17 Larissa Yang PA-C [address] [place] [address] Neurology 01/28/18 [facility] Relationship Specialty Start Date End Date Agustina Stacy MD [address] [place] [address] PCP - General 01/20/23 [facility] Relationship Specialty Start Date End Date Agustina Stacy MD [address] [place] [address] PCP - General 01/20/23 [facility] Relationship Specialty Start Date End Date Agustina Stacy MD [address] [place] [address] PCP - General Family Medicine 07/01/17 Larissa Yang PA-C [address] [place] [address] Neurology 01/28/18 [facility] Relationship Specialty Start Date End Date Agustina Stacy MD PCP - General Family Medicine 01/20/23 Team Status: Active Member Role Status Dates Laisha Javier SPLICING SUPERVISOR-C Primary Care Provider Active Team Status: Inactive [...] Inactive Member Role Status Dates Out of [facility] Doctor Referring Provider Active Sta rt: [...] July 02, 2024 End: July 02, 2024 [facility] Relationship Specialty Start Date End Date Laisha Javier NYLON MACHINE OPERATOR-MACHINE ERECTOR [address] [employer] [place] [address] PCP - General Family Medicine 06/07/24 Emma Verdin MD [address] [address] PCP - Gerardo BARNEY PCP 06/12/24 [facility] Relationship Specialty Start Date End Date Laisha Javier NYLON MACHINE OPERATOR-MACHINE ERECTOR [address] [employer] [place] [address] PCP - General Family Medicine 06/07/24 Emma Vredin MD [address] [address] JEAN-CLAUDE BARNEY PCP 06/12/24 Team Status: Inactive Member Role Status Dates No Primary Care Physician Referring Provider Active Start: September 13, 2024 End: September 13, 2024 Dr. Slade Duarte MD Attending Provider Active Start: September 13, 2024 End: September 13, 2024 Laisha Javier SPLICING SUPERVISOR-C Primary Care Provider Active Start: September 13, 2024 End: September 13, 2024 Team Status: Inactive Member Role Status Dates Laisha Javier NP-C Primary Care Provider Active Start: September 13, 2024 End: September 13, 2024 Slade GUADALUPE MD Attending Provider Active Start: September 13, 2024 End: September 13, 2024 Team Status: Inactive Member Role Status Dates Laisha Javier SPLICING SUPERVISOR-C Primary Care Provider Active Start: September 27, 2024 End: September 27, 2024 Dr. Slade Duarte MD Attending Provider Active Start: September 27, 2024 End: September 27, 2024 Dr. Slade Duarte MD Referring Provider Active Start: September 27, 2024 End: September 27, 2024 Team Status: Active Member Role Status Dates Laisha Javier SPLICING SUPERVISOR-C Primary Care Provider Active Start: September 27, 2024 Dr. Ed Mas MD Attending Provider Active S tart: September 27, 2024 Team Status: Active Member Role Status Dates Laisha Javier SPLICING SUPERVISOR-C Primary Care Provider Active Start: September 27, 2024 Dr. Ed Mas MD Attending Provider Active S tart: September 27, 2024 Dr. Slade Duarte MD Referring Provider Active Start: September 27, 2024 Team Status: Inactive Member Role Status Dates Laisha Javier SPLICING SUPERVISOR-C Primary Care Provider Active Start: October 29, 2024 End: October 29, 2024 Laisha Javier NP-C Referring Provider Active St art: October 29, 2024 End: October 29, 2024 HOLLI Ramey Attending Provider Active Star t: October 29, 2024 End: October 29, 2024 Team Status: Inactive Member Role Status Dates Laisha Javier SPLICING SUPERVISOR-C Primary Care Provider Active Start: October 29, 2024 End: October 29, 2024 HOLLI Ramey Attending Provider Active Star t: October 29, 2024 End: October 29, 2024 HOLLI Ramey Referring Provider Active Star t: October 29, 2024 End: October 29, 2024 [facility] Relationship Specialty Start Date End Date Agustina Stacy MD [address] [place] [address] PCP - General Family Medicine 07/01/17 Larissa Yang PA-C [address] [place] [address] Neurology 01/28/18 [facility] Relationship Specialty Start Date End Date Emma Verdin MD [address] [facility] [address] [place] [address] PCP - Gerardo ACO PCP 06/12/24 Laisha Javier, MIGUELINA-MACHINE ERECTOR [address] [facility], [facility] [address] [place] [address] PCP - General Family Medicine 01/27/25 Team Status: Active Member Role/Relationship Status Dates FRANCI Perez Primary care physician Active Team Status: Inactive Member Role/Relationship Status Dates FRANCI Perez Primary care physician Active Start: October 29, 2024 End: October 29, 2024 FRANCI Perez Referring Provider Active St art: October 29, 2024 End: October 29, 2024 HOLLI Ramey Attending physician Active Sta rt: October 29, 2024 End: October 29, 2024 Team Status: Inactive Member Role/Relationship Status Dates FRANCI Perez Primary care physician Active Start: October 29, 2024 End: October 29, 2024 HOLLI Ramey Attending physician Active Sta rt: October 29, 2024 End: October 29, 2024 HOLLI Ramey Referring Provider Active Star t: October 29, 2024 End: October 29, 2024 Team Status: Inactive Member Role/Relationship Status Dates Laisha Yaya , SPLICING SUPERVISOR-C Primary care physician Active Start: January 15, 2025 End: January 15, 2025 HOLLI Ramey Attending physician Active Sta rt: January 15, 2025 End: January 15, 2025 HOLLI Ramey Referring Provider Active Star t: January 15, 2025 End: January 15, 2025 [facility] Relationship Specialty Start Date End Date Agustina Stacy MD PCP - General Family Medicine 01/20/23 06/06/24 [facility] Relationship Specialty Start Date End Date Emma Verdin MD [address] [facility] [address] [place] [address] PCP - Gerardo ACO PCP 06/12/24 Laisha Javier, NYLON MACHINE OPERATOR-MACHINE ERECTOR [facility] [address] [facility], [facility] [address] [place] [address] PCP - General Family Medicine 01/27/25 Source Comments (unrecognize d section and content) In the event this informatio n is protected by the Federal Confidentiality of Alcohol and Drug Abuse Patient Records regulations: The Federal rules restrict any use of the information to criminally investigate or prosecute any alcohol or drug abuse patient.[facility] the event this information is protected by the Federal Confidentiality of Alcohol and Drug Abuse Patient Records regulations: The Federal rules restrict any use of the information to criminally investigate or prosecute any alcohol or drug abuse patient.[facility] the event this information is protected by the Federal Confidentiality of Alcohol and Drug Abuse Patient Records regulations: The Federal rules restrict any use of the information to criminally investigate or prosecute any alcohol or drug abuse patient.[facility] the event this information is protected by the Federal Confidentiality of Alcohol and Drug Abuse Patient Records regulations: The Federal rules restrict any use of the information to criminally investigate or prosecute any alcohol or drug abuse patient.[facility] the event this information is protected by the Federal Confidentiality of Alcohol and Drug Abuse Patient Records regulations: The Federal rules restrict any use of the information to criminally investigate or prosecute any alcohol or drug abuse patient.[facility] the event this information is protected by the Federal Confidentiality of Alcohol and Drug Abuse Patient Records regulations: The Federal rules restrict any use of the information to criminally investigate or prosecute any alcohol or drug abuse patient.[facility] the event this information is protected by the Federal Confidentiality of Alcohol and Drug Abuse Patient Records regulations: The Federal rules restrict any use of the information to criminally investigate or prosecute any alcohol or drug abuse patient.[facility] Reason for Visit (unrecogniz ed section and content) Reason Comments Follow Up F/U - attempt made. No answer Reason Comments Follow Up All Clear Reason Comments New Patient Hospital follow up/u rinary frequency Specialty Diagnoses / Procedures Referred By Contac t Referred To Contact Radiology Diagnoses Age-related osteoporosis without current pathological fracture Procedures XR DEXA bone density Agustina Stacy MD [address] [place] [address] Riley [id number] [facility] [address] [place] [address] Referral ID Status Reason Start Date Expiration Date Visits Requested Visits Authorized [id number] Pending Review Perform Procedure 09/04/2023 09/03/2024 1 1 Specialty Diagnoses / Procedures Referred By Contac t Referred To Contact Radiology Diagnoses Encounter for screening mammogram for malignant neoplasm of breast Procedures BI mammo bilateral screening tomosynthesis Agustina Stacy MD [address] [place] [address] Referral ID Status Reason Start Date Expiration Date Visits Requested Visits Authorized [id number] Authorized Perform Procedure 09/04/2023 09/03/2024 1 1 [...] mouth. Specialty Diagnoses / Procedures Referred By Contconnie t Referred To Contact Diagnoses Encounter for screening for malignant neoplasm of colon Personal history of colon polyps Procedures HI COLONOSCOPY FLX DX W/COLLJ SPEC WHEN PFRMD HI COLONOSCOPY W/BIOPSY SINGLE/MULTIPLE HI COLSC FLX W/REMOVAL LESION BY HOT BX FORCEPS HI COLSC FLX W/RMVL OF TUMOR POLYP LESION SNARE TQ Riley [id number] [address] [place] [address] [id number] Referral ID Status Reason Start Date Expiration Date Visits Re quested Visits Authorized [id number] 1 1 Reason Comments Established Patient Follow up/medication s Reason Comments Establish Care Est as new. No compl aints Reason Comments Fall ER Follow-up Reason Comments Follow Up OAB (overactive blad nael) Reason Comments Thrush Dry itchy cough, sli ght sore throat. Pt thinks she has thrush. FOR RECORDS PERTAINING TO PATIENTS WHO ARE [...] BE BASED ON THE PRIMARY CLINICAL RECORDS. [employer] provides no warranty or guarantee of the accuracy or completeness of information in this document.
[2025-03-22 15:07] LABS: Hematocrit 40.5 % (37-47); Hemoglobin 13.6 g/dL (12.0-15.0); Immature Granulocytes Count 0.030 X10^3/uL (0.0-0.0); Mean Corp Hgb Conc 33.6 g/dL (32-36); Mean Corpuscular Volume 84.6 fL (81-99); Mean Platelet Vol. 8.9 fl (6.2-12.0); NRBC Flagged by Analyzer 0 % (0-5); Platelet Count 264 K/mm3 (150-450); RBC Distribution Width CV 13.2 % (11.6-14.6); RBC Distribution Width SD 40.9 fl (35.1-43.9); Red Blood Count 4.79 M/mm3 (4.2-5.4); White Blood Count 6.3 K/mm3 (4.4-11.0)
[2025-03-22 18:29] LABS: AST(SGOT) 26 U/L (<=31); Alanine Aminotransfer ALT/SGPT 35 U/L (<=34); Albumin, Serum 4.4 g/dL (3.4-4.8); Alkaline Phosphatase 88 U/L (35-104); Anion Gap 10 (5-15); BUN 11 mg/dL (4-19); BUN/Creat Ratio 17.6 RATIO (10-20); Calcium,Total 9.8 mg/dL (7.6-11.0); Carbon Dioxide 26.5 mmol/L (21.0-32.0); Chloride 101 mmol/L (98-108); Globulin 2.4 g/dL (2.2-4.2); Glucose 81 mg/dL (70-99); Potassium 4.2 mmol/L (3.3-5.1)
== END | disposition home or self-care (01) ==
LOC: MTLAB 13:41
PROVIDERS: Referring Provider Psychiatry & Neurology Neurology; Visit Provider Psychiatry & Neurology Neurology
DX: G35.A Relapsing-remitting multiple sclerosis (principal)
CPT/HCPCS: 36415; 80053; 85025